=== PATIENT | male | born 1990 | race Hispanic/Latino ===

== ENCOUNTER 2016-10-27 20:50 | Emergency (ER) | payer MEDICAID ==
[2016-10-27] MEDS ORDERED: ATIVAN IV ONE (20:56)
[2016-10-27] MEDS ORDERED: NACL 0.9% 1000 ML 1,000 ML IV ONE (20:56)
--- NOTE | 2016-10-27 20:58 | Emergency Department Report ---
ED Seizure HPI - General Stated Complaint: AMS Time Seen by Provider: 10/27/16 20:56 Source: EMS Mode of arrival: Stretcher Limitations: Language Barrier, Other - History of Present Illness Initial Comments: 26-year-old male with a past medical history seizures presents to the hospital with multiple seizures today. Patient had 2 seizures earlier today and then had another seizure 30 minutes prior to arrival. Patient has been combative with EMS since arrival at the scene and received Narcan due to "blown pupils". 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 He takes Lamictal, Keppra, and Topamax for seizures. Awaiting mother's arrival to determine compliance of medication. Patient is agitated, moaning, and combative currently and unable to get any history of present illness the patient. Family present in the ED and interviewed at 11:50 PM. They states they were about to give his evening dose of seizure medication when he began to have seizures. Patient does have a neurologist but they cannot recall the name. Approximately 2-3 weeks ago patient was admitted to [place] for about 2 weeks in the ICU due to seizures. They deny that he was intubated. No recent change in current medication - Related Data Home Medications Medication Instructions Recorded Confirmed Last Taken Topiramate [Topamax] 100 mg PO BID 10/27/16 10/27/16 Unknown lamoTRIgine [LaMICtal] 300 mg PO BID 10/27/16 10/27/16 Unknown levETIRAcetam [Keppra TAB] 1,500 mg PO BID 10/27/16 10/27/16 Unknown Allergies Allergy/AdvReac Type Severity Reaction Status Date / Time No Known Allergies Allergy Verified 10/28/16 00:04 ED Review of Systems ROS: Stated complaint: AMS Other details as noted in HPI Comment: Unobtainable due to pts medical conditions ED Past Medical Hx - Medications Home Medications: Home Medications Medication Instructions Recorded Confirmed Last Taken Type Topiramate [Topamax] 100 mg PO BID 10/27/16 10/27/16 Unknown History lamoTRIgine [LaMICtal] 300 mg PO BID 10/27/16 10/27/16 Unknown History levETIRAcetam [Keppra TAB] 1,500 mg PO BID 10/27/16 10/27/16 Unknown History ED Physical Exam - Other Other exam information: General: Alert, combative Head exam: Atraumatic, normocephalic Eyes exam: Pupils are responsive to light and dilated ENT: Moist mucous membrane, dry blood at nares without signs of septal hematoma or crepitus Neck exam: Normal inspection, full range of motion, no meningismus nontender Respiratory exam: Clear to auscultation bilateral, no wheezes, rales, crackles Cardiovascular: Tachycardic regular rhythm Abdomen: Soft, nondistended, and nontender, with normal bowel sounds, no rebound, or guarding Extremity: Full range of motion normal inspection no deformity Back: Normal Inspection, full range of motion, no tenderness Neurologic: Alert, moaning incomprehensible sounds, moving all extremities 5/5 strength, sensation grossly intact Psychiatric: normal affect, normal mood Skin: Warm, dry, intact ED Course Vital Signs 10/27/16 10/27/16 10/27/16 20:48 20:57 21:00 Temperature 97.0 F L Pulse Rate 128 H 114 H 106 H Respiratory 13 16 Rate Blood Pressure 138/69 138/69 Blood Pressure [Left] O2 Sat by Pulse 98 96 98 Oximetry 10/27/16 10/27/16 10/27/16 21:05 21:15 21:30 Temperature Pulse Rate 105 H 107 H 70 Respiratory 20 15 18 Rate Blood Pressure 124/53 Blood Pressure 114/55 105/49 [Left] O2 Sat by Pulse 95 99 95 Oximetry 10/27/16 10/27/16 10/27/16 21:36 21:46 22:00 Temperature Pulse Rate 94 H 73 68 Respiratory 13 19 16 Rate Blood Pressure 124/53 124/53 105/43 Blood Pressure [Left] O2 Sat by Pulse 91 95 Oximetry 10/27/16 10/27/16 10/27/16 22:15 22:30 22:45 Temperature Pulse Rate 70 70 66 Respiratory 19 19 18 Rate Blood Pressure 106/44 105/35 105/46 Blood Pressure [Left] O2 Sat by Pulse 94 93 95 Oximetry 10/27/16 10/27/16 10/28/16 23:00 23:15 02:07 Temperature Pulse Rate 67 64 62 Respiratory 22 17 21 Rate Blood Pressure 105/45 107/46 Blood Pressure 121/59 [Left] O2 Sat by Pulse 94 94 100 Oximetry - Reevaluation(s) Reevaluation #1: 10/27/16 21:05 pt given atvian 1 mg upon arrival in 4 point restraints Reevaluation #2: 10/27/16 23:54 Patient is calm and sleeping with improved heart rate Reevaluation #3: 10/28/16 03:22 Patient received his evening dose of medications. No further seizure activity. Family feels comfortable taking patient ED Medical Decision Making - Lab Data Result diagrams: 10/27/16 21:16 10/27/16 21:16 Lab Results 10/27/16 10/27/16 10/27/16 Range/Units 21:16 21:16 21:16 WBC 9.4 (4.5-11.0) K/mm3 RBC 4.80 (3.65-5.03) M/mm3 Hgb 15.0 (11.8-15.2) gm/dl Hct 44.1 (35.5-45.6) % MCV 92 (84-94) fl MCH 31 (28-32) pg MCHC 34 (32-34) % RDW 12.6 L (13.2-15.2) % Plt Count 290 (140-440) K/mm3 Lymph % (Auto) 14.4 (13.4-35.0) % Noble % (Auto) 4.1 (0.0-7.3) % Eos % (Auto) 0.7 (0.0-4.3) % Baso % (Auto) 0.6 (0.0-1.8) % Lymph # 1.3 (1.2-5.4) K/mm3 Noble # 0.4 (0.0-0.8) K/mm3 Eos # 0.1 (0.0-0.4) K/mm3 Baso # 0.1 (0.0-0.1) K/mm3 Seg Neutrophils % 80.2 H (40.0-70.0) % Seg Neutrophils # 7.5 (1.8-7.7) K/mm3 Sodium 142 (137-145) mmol/L Potassium 3.5 L (3.6-5.0) mmol/L Chloride 105.5 (98-107) mmol/L Carbon Dioxide 20 L (22-30) mmol/L Anion Gap 20 mmol/L BUN 18 (9-20) mg/dL Creatinine 1.1 (0.8-1.5) mg/dL Estimated GFR > 60 ml/min BUN/Creatinine Ratio 16.36 % Glucose 130 H (75-100) mg/dL Lactic Acid 2.80 H* (0.7-2.0) mmol/L Calcium 9.1 (8.4-10.2) mg/dL Magnesium 1.70 (1.7-2.3) mg/dL - Radiology Data Radiology results: report reviewed CT head: No acute findings CT facial bones: No acute findings - Medical Decision Making Plan discharge patient home status post seizure. No signs of acute fracture. Outpatient neurology follow-up encouraged - Differential Diagnosis breakthrough sz, med noncompliance, electrolyte abnl Critical Care Time: No Critical care attestation.: If time is entered above; I have spent that time in minutes in the direct care of this critically ill patient, excluding procedure time. ED Disposition Clinical Impression: Breakthrough seizure Disposition: DISCHARGED TO HOME OR SELFCARE Is pt being admited?: No Does the pt Need Aspirin: No Condition: Stable Instructions: Recurrent Seizures Adult (ED) Additional Instructions: Taking your current medication. Follow-up with the neurologist as soon as possible. Return if symptoms worsen. Referrals: your, neurologist [Other] - [facility] Time of Disposition: 03:23
[2016-10-27 21:31] LABS: Basophils % (Auto) 0.6 % (0.0-1.8); Eosinophils % (Auto) 0.7 % (0.0-4.3); Hematocrit 44.1 % (35.5-45.6); Mean Corpuscular HGB Conc 34 % (32-34); Mean Corpuscular Hemoglobin 31 pg (28-32); Mean Corpuscular Volume 92 fl (84-94); Platelet Count 290 K/mm3 (140-440); Red Cell Distribution Width 12.6 % (13.2-15.2); White Blood Count 9.4 K/mm3 (4.5-11.0)
[2016-10-27 21:47] LABS: Anion Gap 20 mmol/L; BUN/Creatinine Ratio 16.36; Blood Urea Nitrogen 18 mg/dL (9-20); Calcium 9.1 mg/dL (8.4-10.2); Carbon Dioxide 20 mmol/L (22-30); Chloride 105.5 mmol/L (98-107); Glucose 130 mg/dL (75-100); Potassium 3.5 mmol/L (3.6-5.0); Sodium 142 mmol/L (137-145)
--- NOTE | 2016-10-27 21:56 | Cat Scan Report ---
FINAL REPORT EXAM: CT HEAD/BRAIN WO CON HISTORY: head injury, recurrent sz TECHNIQUE: CT imaging acquired through the head without intravenous contrast. Transaxial reformations are provided. PRIORS: None. FINDINGS: The ventricles, cisterns and sulci are normal. No intraparenchymal or extra-axial mass, hemorrhage, or mass effect. Joshi and white-matter differentiation is normal. Normal spherical shape of the globes. Paranasal sinuses and mastoid air cells are clear. No skull or facial fracture visualized. IMPRESSION: No acute intracranial abnormality.
--- NOTE | 2016-10-27 21:59 | Cat Scan Report ---
FINAL REPORT EXAM: CT FACIAL BONES WO CON HISTORY: head injury, recurrent sz TECHNIQUE: CT images are acquired through the face without contrast. Transaxial , coronal and sagittal reformations are provided. PRIORS: None. FINDINGS: No facial fractures. The bony orbits, nasal bones, pterygoid plates, mandible and maxilla are intact. Normal spherical shape of the globes. No significant abnormality within the imaged paranasal sinuses or mastoid air cells. IMPRESSION: No facial fracture.
[2016-10-27] MEDS ORDERED: LaMICtal PO ONE (23:53)
[2016-10-28] MEDS ORDERED: TOPAMAX PO SCH (01:30)
[2016-10-28 03:44] VITALS: BP 124/60
[2016-10-28] MEDS ORDERED: KEPPRA 1,500 MG in D5W 100 ML IV ONE (23:53)
== END 2016-10-28 03:42 | disposition home or self-care (01) ==
LOC: ED 20:50
DX: R56.9 Unspecified convulsions (principal)
CPT/HCPCS: 36415; 70450; 70486; 80048; 82140; 83735; 85025; 96361; 96374; 96375; 99284; J1953; J2060; J7030

== ENCOUNTER 2018-01-16 02:28 | Inpatient (IN) | payer MEDICAID ==
[2018-01-16] MEDS ORDERED: ATIVAN ONE (02:39)
[2018-01-16] MEDS ORDERED: ATIVAN IV ONE (02:40)
[2018-01-16] MEDS ORDERED: KEPPRA 1,000 MG/NS 0.75% 100ML 1,000 MG/100 ML BAG IV ONE ×2 (02:56→02:57)
[2018-01-16 03:47] LABS: Hematocrit 44.9 % (35.5-45.6); Hemoglobin 15.2 gm/dl (11.8-15.2); Mean Corpuscular HGB Conc 34 % (32-34); Mean Corpuscular Hemoglobin 30 pg (28-32); Mean Corpuscular Volume 89 fl (84-94); Platelet Count 425 K/mm3 (140-440); Red Blood Count 5.03 M/mm3 (3.65-5.03); Red Cell Distribution Width 12.7 % (13.2-15.2)
[2018-01-16 04:10] LABS: Alanine Aminotransferase 57 units/L (7-56); BUN/Creatinine Ratio 11; Blood Urea Nitrogen 11 mg/dL (9-20); Calcium 8.6 mg/dL (8.4-10.2); Hemolysis Index 19; Lipase 18 units/L (13-60)
[2018-01-16 04:33] LABS: Bacteria,Urine 1+ /HPF (Negative); Bilirubin,Urine NEG (Negative); Blood,Urine NEG (Negative); Color,Urine Yellow (Yellow); Hyaline Casts,Urine 1 /LPF; Mucus,Urine 1+ /HPF
[2018-01-16] MEDS ORDERED: NACL 0.9% 1000 ML 1,000 ML IV ONE ×2 (04:56→05:04)
--- NOTE | 2018-01-16 05:01 | Emergency Department Report ---
ED Seizure HPI - General Chief Complaint: Seizure Stated Complaint: SEIZURE Time Seen by Provider: 01/16/18 02:50 Source: family, EMS Mode of arrival: Stretcher Limitations: Physical Limitation - History of Present Illness Initial Comments: Hx obtained from Mom and EMS. Pt woke up this morning feeling fine. Over the past 2 hours, pt had 2 generalized sz's. He didn't return to baseline in between the seizures. Currently is on keppra for sz. EMS arrived to find him post-ictal. Pt was admitted a little over a week ago for status epilepticus. Has been compliant with home medication. Recently finished a course of abx for uti. Mom feels like these seizures are different from his usual seizures. Last had a seizure during his prior hospital admission rougly 1 wk ago. - Related Data Home Medications Medication Instructions Recorded Confirmed Last Taken Topiramate [Topamax] 150 mg PO BID 10/27/16 01/16/18 Unknown lamoTRIgine [LaMICtal] 300 mg PO BID 10/27/16 01/16/18 Unknown levETIRAcetam [Keppra TAB] 1,500 mg PO BID 10/27/16 01/16/18 01/01/18 Cholecalciferol Vit D3 [Vitamin D3] 1,000 unit PO BID 01/01/18 01/16/18 Unknown Lacosamide [Vimpat] 200 mg PO BID 01/01/18 01/16/18 Unknown Previous Rx's Medication Instructions Recorded Last Taken Type Docusate Sodium [Colace CAP] 100 mg PO BID #30 capsule 01/06/18 Unknown Rx LORazepam [Ativan] 1 mg PO BID PRN #6 tab 01/06/18 Unknown Rx Allergies Allergy/AdvReac Type Severity Reaction Status Date / Time Penicillins Allergy Angioedema Verified 01/01/18 13:03 shellfish derived Allergy Swelling Verified 01/01/18 13:03 ED Review of Systems ROS: Stated complaint: SEIZURE Other details as noted in HPI Comment: Unobtainable due to pts medical conditions ED Past Medical Hx - Past Medical History Previous Medical History?: Yes Hx Hypertension: No Hx CVA: Yes (2013) Hx Congestive Heart Failure: No Hx Diabetes: No Hx Deep Vein Thrombosis: No Hx Pulmonary Embolism: No Hx Seizures: Yes Hx Asthma: No Hx COPD: No Hx Tuberculosis: No Hx Dementia: Yes Hx HIV: No Additional medical history: blind - Surgical History Past Surgical History?: Yes Hx Pacemaker: No Hx Internal Defibrillator: No Additional Surgical History: Vagal nerve stimulator - Social History Smoking Status: Never Smoker Substance Use Type: None - Medications Home Medications: Home Medications Medication Instructions Recorded Confirmed Last Taken Type Topiramate [Topamax] 150 mg PO BID 10/27/16 01/16/18 Unknown History lamoTRIgine [LaMICtal] 300 mg PO BID 10/27/16 01/16/18 Unknown History levETIRAcetam [Keppra TAB] 1,500 mg PO BID 10/27/16 01/16/18 01/01/18 History Cholecalciferol Vit D3 [Vitamin D3] 1,000 unit PO BID 01/01/18 01/16/18 Unknown History Lacosamide [Vimpat] 200 mg PO BID 01/01/18 01/16/18 Unknown History Docusate Sodium [Colace CAP] 100 mg PO BID #30 capsule 01/06/18 01/16/18 Unknown Rx LORazepam [Ativan] 1 mg PO BID PRN #6 tab 01/06/18 01/16/18 Unknown Rx ED Physical Exam - General Limitations: Altered Mental Status, Physical Limitation General appearance: lethargic, in distress (in mild resp distress) - Head Head exam: Present: atraumatic, normocephalic - Eye Eye exam: Present: normal appearance - ENT ENT exam: Present: mucous membranes moist - Neck Neck exam: Present: normal inspection - Respiratory Respiratory exam: Present: normal lung sounds bilaterally. Absent: respiratory distress - Cardiovascular Cardiovascular Exam: Present: regular rate, normal rhythm, tachycardia. Absent : systolic murmur, diastolic murmur, rubs, gallop - GI/Abdominal GI/Abdominal exam: Present: soft, normal bowel sounds. Absent: tenderness - Rectal Rectal exam: Present: deferred - Extremities Exam Extremities exam: Present: normal inspection - Back Exam Back exam: Present: normal inspection - Neurological Exam Neurological exam: Present: other (post-ictal) - Psychiatric Psychiatric exam: Present: normal affect, normal mood - Skin Skin exam: Present: warm, dry, intact, normal color. Absent: rash ED Course Vital Signs 01/16/18 01/16/18 01/16/18 02:52 04:00 05:00 Temperature 98 F Pulse Rate 120 H 103 H 104 H Respiratory 28 H 35 H 30 H Rate Blood Pressure 136/71 114/62 117/78 Blood Pressure 136/71 [Left] O2 Sat by Pulse 95 93 96 Oximetry ED Medical Decision Making - Lab Data Result diagrams: 01/16/18 03:21 01/16/18 03:21 - EKG Data -: EKG Interpreted by Me EKG shows normal: sinus rhythm Rate: tachycardia - EKG Data Interpretation: unchanged when compared t - Radiology Data Radiology results: report reviewed - Medical Decision Making 28 yo male with pmhx status epilepticus that presents to the ER with status epilepticus. He was here 1.5 wks ago with the same thing. Pt is tachycardic on arrival. This improved with IVF. WBC 27k. Bicarb is 17. Afebrile. Likely this is related to patient's 3 prior seizures today. Given 1 mg ativan in the ER for GTC sz with his head pointing to the right. Started on IVF. CT head is unremarkable. Given 2g IV keppra. UA neg. Pt will be admitted for further management. Radiologist just read the chest xr as possible pna. Will give empiric HCAP coverage. - Differential Diagnosis status, GTC sz, electrolyte abnormality, sepsis, uti, pna Critical care attestation.: If time is entered above; I have spent that time in minutes in the direct care of this critically ill patient, excluding procedure time. ED Disposition Clinical Impression: Status epilepticus, Pneumonia Disposition: OP ADMIT IP TO THIS HOSP Is pt being admited?: Yes Does the pt Need Aspirin: No Condition: Stable Instructions: Bacterial Pneumonia (ED) Referrals: PRIMARY CARE, [Primary Care Provider] - 3-5 Days
--- NOTE | 2018-01-16 05:04 | Cat Scan Report ---
FINAL REPORT EXAM: CT HEAD/BRAIN WO CON HISTORY: status epilepticus TECHNIQUE: Routine axial imaging was obtained of the brain without IV contrast. Comparison is made to the study of 01/01/2018. FINDINGS: There is mild supratentorial volume loss with moderate to severe volume loss in the posterior fossa. There is no evidence of acute stroke or hemorrhage. The ventricular system is symmetric in size. The visualized sinuses are clear. The mastoid air cells are well pneumatized. The calvarium appears intact. IMPRESSION: No evidence of acute stroke or hemorrhage. Moderate to severe atrophy in the posterior fossa, possibly related to chronic anticonvulsant medication.
--- NOTE | 2018-01-16 05:27 | XRay Report ---
FINAL REPORT EXAM: XR CHEST 1V AP HISTORY: hypoxia TECHNIQUE: A portable supine view of the chest was obtained. FINDINGS: Heart size is normal. The lungs appear mildly congested. There is patchy airspace disease in the right lung base. There is a pacemaker device overlying the left chest wall with the lead directed into the left side of the neck. The skeletal structures otherwise appear well maintained. IMPRESSION: Mild vascular congestion with patchy airspace disease in the right lung base.
[2018-01-16 05:40] LABS: Band Neutrophils # (Manual) 6.3 K/mm3; Total Cells Counted 100
[2018-01-16 05:41] LABS: Anisocytosis 1+; Basophils % (Manual) 0 % (0.0-1.8); Eosinophils % (Manual) 0 % (0.0-4.3)
[2018-01-16] MEDS ORDERED: ZITHROMAX 500 MG in NACL 0.9% 250ML 250 ML IV ONE (05:48)
[2018-01-16] MEDS ORDERED: VANCOMYCIN VIAL IV ONE (05:48)
[2018-01-16] MEDS ORDERED: VANCOMYCIN 2,000 MG in NACL 0.9% 500 ML 500 ML IV ONE (06:00)
[2018-01-16] MEDS ORDERED: ZOSYN/NS 4.5GM/100ML 4.5 GM/100 ML VIAL IV SCH (06:00)
[2018-01-16] MEDS ORDERED: VANCOMYCIN PHARMACY TO DOSE IV SCH (06:00)
[2018-01-16] MEDS ORDERED: ROCEPHIN/NS 1 GM/50 ML 1 GM/50 ML BAG IV ONE (06:11)
[2018-01-16] MEDS ORDERED: SODIUM CHLORIDE FLUSH SYRINGE 10 ML IV PRN (06:32)
[2018-01-16] MEDS ORDERED: ZOFRAN IV PRN ×2 (06:32→11:52)
--- NOTE | 2018-01-16 06:40 | History and Physical Report ---
History of Present Illness Date of examination: 01/16/18 History of present illness: 27 year old male with history of retinitis pigmentosa, legally blind, seizure disorder was brought to the emergency room by the mom because he had 4 seizures at home. In the emergency room he had another seizure, he was loaded with Keppra, Ativan and patient is postictal, review of systems unobtainable Patient was just discharged from the hospital recently, he's been on Bactrim for UTI, on state is compliant with medication PAST MEDICAL HISTORY:retinitis pigmentosa, legally blind, seizure disorder PAST SURGICAL HISTORY: Vagal nerve stimulator SOCIAL HISTORY: No alcohol, no drugs, tobacco FAMILY HISTORY: Hypertension Medications and Allergies Allergies Allergy/AdvReac Type Severity Reaction Status Date / Time Penicillins Allergy Angioedema Verified 01/01/18 13:03 shellfish derived Allergy Swelling Verified 01/01/18 13:03 Home Medications Medication Instructions Recorded Confirmed Last Taken Type Topiramate [Topamax] 150 mg PO BID 10/27/16 01/16/18 Unknown History lamoTRIgine [LaMICtal] 300 mg PO BID 10/27/16 01/16/18 Unknown History levETIRAcetam [Keppra TAB] 1,500 mg PO BID 10/27/16 01/16/18 01/01/18 History Cholecalciferol Vit D3 [Vitamin D3] 1,000 unit PO BID 01/01/18 01/16/18 Unknown History Lacosamide [Vimpat] 200 mg PO BID 01/01/18 01/16/18 Unknown History Docusate Sodium [Colace CAP] 100 mg PO BID #30 capsule 01/06/18 01/16/18 Unknown Rx LORazepam [Ativan] 1 mg PO BID PRN #6 tab 01/06/18 01/16/18 Unknown Rx Active Meds: Active Medications Acetaminophen (Tylenol) 650 mg PO Q4H PRN PRN Reason: Pain MILD(1-3)/Fever >100.5/ALCARAZ Enoxaparin Sodium (Lovenox) 30 mg SUB-Q QDAY SILVANA Vancomycin HCl 2,000 mg/ (Sodium Chloride) 540 mls @ 250 mls/hr IV ONCE ONE Stop: 01/16/18 08:09 Ceftriaxone Sodium (Rocephin/Ns 1 Gm/50 Ml) 1 gm in 50 mls @ 100 mls/hr IV ONCE ONE; Protocol Stop: 01/16/18 06:40 Last Admin: 01/16/18 06:20 Dose: 100 mls/hr Sodium Chloride (Nacl 0.9% 1000 Ml) 1,000 mls @ 125 mls/hr IV DIRECT SILVANA Levofloxacin/Dextrose (Levaquin 750mg/150ml) 750 mg in 150 mls @ 100 mls/hr IV Q24HR SILVANA; Protocol Ondansetron HCl (Zofran) 4 mg IV Q4H PRN PRN Reason: Nausea And Vomiting Sodium Chloride (Sodium Chloride Flush Syringe 10 Ml) 10 ml IV BID SILVANA Sodium Chloride (Sodium Chloride Flush Syringe 10 Ml) 10 ml IV PRN PRN PRN Reason: LINE FLUSH Vancomycin HCl (Vancomycin Pharmacy To Dose) 1 each IV PKCONSULT SILVANA Exam - Physical Exam Narrative exam: Gen. appearance: Patient lying in bed, no apparent distress HEENT: Normocephalic, atraumatic, pupils equally round and reactive to light, extraocular movement intact, and no sclericterus,. No JVD or thyromegaly or nodule,neck supple, no carotid bruit ,mucous membranes moist, no exudate or erythema Heart: S1, S2, regular rate and rhythm Lungs: Clear bilaterally, breathing comfortable Abdomen: Positive bowel sounds, non-tender, nondistended, no organomegaly Extremity:no edema cyanosis, clubbing Skin: no rash, dry, warm Neuro: Oriented 3, cranial nerves II-12 intact, speech is fluent, motor and sensory intact - Constitutional Vitals: Temp Pulse Resp BP Pulse Ox 98 F 104 H 24 100/63 99 01/16/18 02:52 01/16/18 05:00 01/16/18 06:00 01/16/18 06:00 01/16/18 06:00 Results - Labs CBC & Chem 7: 01/16/18 03:21 01/16/18 03:21 Labs: Abnormal lab results 01/16/18 01/16/18 01/16/18 Range/Units 03:21 03:21 03:50 WBC 27.2 H (4.5-11.0) K/mm3 RDW 12.7 L (13.2-15.2) % Lymphocytes % (Manual) 3.0 L (13.4-35.0) % Seg Neutrophils # Man 19.0 H (1.8-7.7) K/mm3 Lymphocytes # (Manual) 0.8 L (1.2-5.4) K/mm3 Monocytes # (Manual) 1.1 H (0.0-0.8) K/mm3 Chloride 107.5 H (98-107) mmol/L Carbon Dioxide 17 L (22-30) mmol/L Glucose 165 H (75-100) mg/dL AST 42 H (5-40) units/L ALT 57 H (7-56) units/L Ur Specific Knifley 1.032 H (1.003-1.030) - Imaging and Cardiology Chest x-ray: report reviewed CT Scan - head: report reviewed Assessment and Plan Assessment Status epilepticus Pneumonia Legally blind Retinitis pigmentosa Plan Admit to medicine Continue Keppra, consult neurology, IV Ativan Start IV fluids, antibiotics DVT prophylaxis
[2018-01-16] MEDS ORDERED: LEVAQUIN 750MG/150ML 750 MG/150 ML BAG IV NR (07:00)
[2018-01-16] MEDS ORDERED: LOVENOX SUB-Q SCH ×2 (10:00)
[2018-01-16] MEDS ORDERED: LEVAQUIN 750MG/150ML 750 MG/150 ML BAG IV SCH (10:00)
[2018-01-16] MEDS: SODIUM CHLORIDE FLUSH SYRINGE 10 ML IV SCH ×2 (11:16→21:36)
--- NOTE | 2018-01-16 12:44 | Consultation ---
History of Present Illness Consult date: 01/16/18 Requesting physician: ODN HERNANDEZ Reason for Consult: Seizures History of present illness: 28 year old male with diagnosis of retinitis pigmentosa, blind since age 12, and seizure disorder since age 16. He has been followed at [place] and is currently on 4 anticonvulsants. He also has a vagal stimulator. The patient at baseline stays in a hospital bed and can get up with assistance. For the past 5 weeks he has been having spells of nausea and vomiting, making it difficult to keep his medications down. He has had several admissions for this , gets stabilized and sent home only for another spell to occur. He was just admitted on 01/02/18 for this scenario. He was treated for UTI on that admission and did well at home until last night. He was doing well all day until the evening when he had several seizures in a row, not pre-empted by vomiting. He had been taking meds as scheduled with no lapses. During the seizure he did vomit and risk for aspiration was identified. He had several seizures at home and also upon arrival to the hospital. He has been given ativan and is resting comfortably. Past History Past Medical History: seizures, other (blind) Past Surgical History: Other (placement of vagal stimulator.) Social history: no significant social history, lives with family. denies: smoking, alcohol abuse, prescription drug abuse, IV drug use Family history: hypertension Medications and Allergies Allergies Allergy/AdvReac Type Severity Reaction Status Date / Time Penicillins Allergy Angioedema Verified 01/01/18 13:03 shellfish derived Allergy Swelling Verified 01/01/18 13:03 Home Medications Medication Instructions Recorded Confirmed Last Taken Type Topiramate [Topamax] 150 mg PO BID 10/27/16 01/16/18 Unknown History lamoTRIgine [LaMICtal] 300 mg PO BID 10/27/16 01/16/18 Unknown History levETIRAcetam [Keppra TAB] 1,500 mg PO BID 10/27/16 01/16/18 01/01/18 History Cholecalciferol Vit D3 [Vitamin D3] 1,000 unit PO BID 01/01/18 01/16/18 Unknown History Lacosamide [Vimpat] 200 mg PO BID 01/01/18 01/16/18 Unknown History Docusate Sodium [Colace CAP] 100 mg PO BID #30 capsule 01/06/18 01/16/18 Unknown Rx LORazepam [Ativan] 1 mg PO BID PRN #6 tab 01/06/18 01/16/18 Unknown Rx Active Meds: Active Medications Acetaminophen (Tylenol) 650 mg PO Q4H PRN PRN Reason: Pain MILD(1-3)/Fever >100.5/ALCARAZ Heparin Sodium (Porcine) (Heparin) 5,000 unit SUB-Q Q12HR SILVANA Sodium Chloride (Nacl 0.9% 1000 Ml) 1,000 mls @ 125 mls/hr IV DIRECT SILVANA Levetiracetam 750 mg/ Sodium (Chloride) 107.5 mls @ 400 mls/hr IV Q12HR SILVANA Levofloxacin/Dextrose (Levaquin 750mg/150ml) 750 mg in 150 mls @ 150 mls/hr IV Q24HR SILVANA Lacosamide 200 mg/ Sodium (Chloride) 120 mls @ 100 mls/hr IV Q12H SILVANA Lorazepam (Ativan) 1 mg IV Q4H PRN PRN Reason: Seizures Ondansetron HCl (Zofran) 4 mg IV Q6H PRN PRN Reason: N/V unrelieved by Reglan Sodium Chloride (Sodium Chloride Flush Syringe 10 Ml) 10 ml IV BID [facility] Last Admin: 01/16/18 11:16 Dose: 10 ml Sodium Chloride (Sodium Chloride Flush Syringe 10 Ml) 10 ml IV PRN PRN PRN Reason: LINE FLUSH Review of Systems ROS unobtainable: due to mental status Physical Examination - Vital Signs Vital Signs: Vital Signs Temp Pulse Resp BP Pulse Ox 98 F 120 H 28 H 136/71 95 01/16/18 02:52 01/16/18 02:52 01/16/18 02:52 01/16/18 02:52 01/16/18 02:52 - Physical Exam Narrative exam: Narrative exam: HEENT - nystagmus, no inflamation or lesions Neck - supple Chest - clear. Heart - reg rate. nl S-1, S-2. Abdomen - soft, nontender. Neurologic exam- Obtunded - does not respond to voice, moans with chest rub. CN's - pupils dialatd 4 mm. No vision. bilateral lateral gaze nystagmus face symmetric Motor - Moves all extremities well, left greater than right. Sensory - withdraws to pain.t t Results - Laboratory Findings CBC and BMP: 01/16/18 03:21 01/16/18 03:21 Abnormal Lab Findings: Abnormal Labs 01/16/18 01/16/18 01/16/18 03:21 03:21 03:50 WBC 27.2 H RDW 12.7 L Lymphocytes % (Manual) 3.0 L Seg Neutrophils # Man 19.0 H Lymphocytes # (Manual) 0.8 L Monocytes # (Manual) 1.1 H Chloride 107.5 H Carbon Dioxide 17 L Glucose 165 H AST 42 H ALT 57 H Ur Specific Brice 1.032 H Assessment and Plan 27 year old male with history of retinitis pigmentosa and seizure disorder, difficult to control. Presented in status last night , without previous GI symptoms as has been his pattern before this. The patient went into seizures despite taking his medicines as scheduled. This a.m. he is lethargic, postictal. Keppra and Ativan have been given. There is a question as to the integrity of his vagal stimulator. This should be working at the start of a seizure. This needs to be evaluated by an epilepsy team. Plan - Restart oral meds when alert and swallowing. Bedside swallowing evaluation prior to taking po. Added Vimpat 200 mg I.V. q 12 hrs. Consult to social service to see if we can get him into the [facility] system. Family has had problems with their existing clinic.
[2018-01-16] MEDS: VIMPAT 200 MG in NACL 0.9% 100 ML IV SCH (14:15)
--- NOTE | 2018-01-16 14:42 | Event Note ---
Date: 01/16/18 Patient was seen and evaluated this morning, patient is postictal. Patient admitted this morning for recurrent seizures. Evaluated by neurology. Patient is on IV keppra and ativan. continue management per H&P.
[2018-01-16] MEDS: KEPPRA 750 MG in NACL 0.9% 100 ML IV SCH (21:35)
[2018-01-16] MEDS: HEPARIN SUB-Q SCH (21:36)
[2018-01-16] MEDS: TYLENOL PR PRN (22:40)
[2018-01-17] MEDS: VIMPAT 200 MG in NACL 0.9% 100 ML IV SCH ×2 (01:07→13:00)
[2018-01-17] MEDS: NACL 0.9% 1000 ML 1,000 ML IV SCH ×2 (04:27→14:05)
[2018-01-17] MEDS: ATIVAN IV PRN ×3 (06:38→22:21)
[2018-01-17] MEDS: HEPARIN SUB-Q SCH ×2 (09:57→22:20)
[2018-01-17] MEDS: SODIUM CHLORIDE FLUSH SYRINGE 10 ML IV SCH (09:58)
[2018-01-17] MEDS ORDERED: LEVAQUIN 750MG/150ML 750 MG/150 ML BAG IV SCH ×2 (10:00)
[2018-01-17] MEDS: KEPPRA 750 MG in NACL 0.9% 100 ML IV SCH ×2 (10:40→22:20)
--- NOTE | 2018-01-17 12:20 | Progress Note ---
Assessment and Plan Assessment and plan: 27 year old male with history of retinitis pigmentosa, legally blind, seizure disorder was brought to the emergency room by his mother because he had 4 seizures at home. In the emergency room he had another seizure, he was loaded with Keppra, Ativan and admitted to the floor. Vision is leukocytosis and chest x-ray showed right lower lobe infiltrate. Admitted for the management of aspiration pneumonia. Patient was postictal on admission and is not able to take PO. Sepsis secondary to Aspiration pneumonia, HCAP - Patient is on IV Levaquin, patient is still shooting fever - I will switch IV Aztreonam and Vancomycin Recurrent seizure - Patient is on IV Keppra, lacosamide and Ativan - Once he is able to swallow will restart his by mouth medications - Continue IV fluids DVT prophylaxis - On heparin Disposition Continue inpatient care History Interval history: Patient was seen and evaluated this morning, patient was on the bed comfortably. I have discussed the management plan with his mother who was in the room at the time of examination. Hospitalist Physical - Physical exam Narrative exam: Not in cardiopulmonary distress. Patient is legally blind. The patient appeared well nourished and normally developed. Vital signs as documented. Head exam is unremarkable. No scleral icterus . Neck is without jugular venous distension, thyromegaly, or carotid bruits. Lungs are clear to auscultation. Cardiac exam reveals regular rate and Rhythm. First and second heart sounds normal. No murmurs, rubs or gallops. Abdominal exam reveals normal bowel sounds, no masses, no organomegaly and no aortic enlargement. Extremities are nonedematous and both femoral and pedal pulses are normal. US MARKETING DIRECTOR:Alert. - Constitutional Vitals: Temp Pulse Resp BP Pulse Ox 98.9 F 102 H 18 135/74 95 01/17/18 06:32 01/17/18 06:32 01/17/18 06:32 01/17/18 06:32 01/17/18 06:32 Results - Labs CBC & Chem 7: 01/16/18 03:21 01/16/18 03:21 Labs: Laboratory Last Values WBC 27.2 K/mm3 (4.5-11.0) H 01/16/18 03:21 RBC 5.03 M/mm3 (3.65-5.03) 08/03/18 03:21 Hgb 15.2 gm/dl (11.8-15.2) 01/16/18 03:21 Hct 44.9 % (35.5-45.6) 01/16/18 03:21 MCV 89 fl (84-94) 01/16/18 03:21 MCH 30 pg (28-32) 01/16/18 03:21 MCHC 34 % (32-34) 01/16/18 03:21 RDW 12.7 % (13.2-15.2) L 01/16/18 03:21 Plt Count 425 K/mm3 (140-440) 01/16/18 03:21 Add Manual Diff Complete 01/16/18 03:21 Total Counted 100 01/16/18 03:21 Seg Neutrophils % Reading Recovery Teacher 01/16/18 03:21 Seg Neuts % (Manual) 70.0 % (40.0-70.0) 01/16/18 03:21 Band Neutrophils % 23.0 % 01/16/18 03:21 Lymphocytes % (Manual) 3.0 % (13.4-35.0) L 01/16/18 03:21 Reactive Lymphs % (Man) 0 % 01/16/18 03:21 Monocytes % (Manual) 4.0 % (0.0-7.3) 01/16/18 03:21 Eosinophils % (Manual) 0 % (0.0-4.3) 01/16/18 03:21 Basophils % (Manual) 0 % (0.0-1.8) 01/16/18 03:21 Metamyelocytes % 0 % 01/16/18 03:21 Myelocytes % 0 % 01/16/18 03:21 Promyelocytes % 0 % 01/16/18 03:21 Blast Cells % 0 % 01/16/18 03:21 Nucleated RBC % Not Reportable 01/16/18 03:21 Seg Neutrophils # Man 19.0 K/mm3 (1.8-7.7) H 01/16/18 03:21 Band Neutrophils # 6.3 K/mm3 01/16/18 03:21 Lymphocytes # (Manual) 0.8 K/mm3 (1.2-5.4) L 01/16/18 03:21 Abs React Lymphs (Man) 0.0 K/mm3 01/16/18 03:21 Monocytes # (Manual) 1.1 K/mm3 (0.0-0.8) H 01/16/18 03:21 Eosinophils # (Manual) 0.0 K/mm3 (0.0-0.4) 01/16/18 03:21 Basophils # (Manual) 0.0 K/mm3 (0.0-0.1) 01/16/18 03:21 Metamyelocytes # 0.0 K/mm3 01/16/18 03:21 Myelocytes # 0.0 K/mm3 01/16/18 03:21 Promyelocytes # 0.0 K/mm3 01/16/18 03:21 Blast Cells # 0.0 K/mm3 01/16/18 03:21 WBC Morphology Not Reportable 01/16/18 03:21 Hypersegmented Neuts Not Reportable 01/16/18 03:21 Hyposegmented Neuts Not Reportable 01/16/18 03:21 Hypogranular Neuts Not Reportable 01/16/18 03:21 Smudge Cells Not Reportable 01/16/18 03:21 Toxic Granulation Not Reportable 01/16/18 03:21 Toxic Vacuolation Not Reportable 01/16/18 03:21 Dohle Bodies Not Reportable 01/16/18 03:21 Pelger-Huet Anomaly Not Reportable 01/16/18 03:21 Nereida Rods Not Reportable 01/16/18 03:21 Platelet Estimate Appears normal 01/16/18 03:21 Clumped Platelets Not Reportable 01/16/18 03:21 Plt Clumps, EDTA Not Reportable 01/16/18 03:21 Large Platelets Not Reportable 01/16/18 03:21 Giant Platelets Not Reportable 01/16/18 03:21 Platelet Satelliting Not Reportable 01/16/18 03:21 Plt Morphology Comment Not Reportable 01/16/18 03:21 RBC Morphology Not Reportable 01/16/18 03:21 Dimorphic RBCs Not Reportable 01/16/18 03:21 Polychromasia Not Reportable 01/16/18 03:21 Hypochromasia Not Reportable 01/16/18 03:21 Poikilocytosis Not Reportable 01/16/18 03:21 Anisocytosis 1+ 01/16/18 03:21 Microcytosis Not Reportable 01/16/18 03:21 Macrocytosis Not Reportable 01/16/18 03:21 Spherocytes Not Reportable 01/16/18 03:21 Pappenheimer Bodies Not Reportable 01/16/18 03:21 Sickle Cells Not Reportable 01/16/18 03:21 Target Cells Not Reportable 01/16/18 03:21 Tear Drop Cells Not Reportable 01/16/18 03:21 Ovalocytes Not Reportable 01/16/18 03:21 Helmet Cells Not Reportable 01/16/18 03:21 [place] Bodies Not Reportable 01/16/18 03:21 [place] Rings Not Reportable 01/16/18 03:21 Brie Cells Not Reportable 01/16/18 03:21 Bite Cells Not Reportable 01/16/18 03:21 Crenated Cell Not Reportable 01/16/18 03:21 Elliptocytes Not Reportable 01/16/18 03:21 Acanthocytes (Spur) Not Reportable 01/16/18 03:21 Rouleaux Not Reportable 01/16/18 03:21 Hemoglobin C Crystals Not Reportable 01/16/18 03:21 Schistocytes Not Reportable 01/16/18 03:21 Malaria parasites Not Reportable 01/16/18 03:21 Miguel Bodies Not Reportable 01/16/18 03:21 Hem Pathologist Commnt No 01/16/18 03:21 Sodium 140 mmol/L (137-145) 01/16/18 03:21 Potassium 4.1 mmol/L (3.6-5.0) 01/16/18 03:21 Chloride 107.5 mmol/L (98-107) H 01/16/18 03:21 Carbon Dioxide 17 mmol/L (22-30) L 01/16/18 03:21 Anion Gap 20 mmol/L 01/16/18 03:21 BUN 11 mg/dL (9-20) 01/16/18 03:21 Creatinine 1.0 mg/dL (0.8-1.5) 01/16/18 03:21 Estimated GFR > 60 ml/min 01/16/18 03:21 BUN/Creatinine Ratio 11 % 01/16/18 03:21 Glucose 165 mg/dL (75-100) H 01/16/18 03:21 Calcium 8.6 mg/dL (8.4-10.2) 01/16/18 03:21 Total Bilirubin 0.20 mg/dL (0.1-1.2) 01/16/18 03:21 AST 42 units/L (5-40) H 01/16/18 03:21 ALT 57 units/L (7-56) H 01/16/18 03:21 Alkaline Phosphatase 87 units/L (35-129) 01/16/18 03:21 Total Protein 6.7 g/dL (6.3-8.2) 01/16/18 03:21 Albumin 4.0 g/dL (3.9-5) 01/16/18 03:21 Albumin/Globulin Ratio 1.5 % 01/16/18 03:21 Lipase 18 units/L (13-60) 01/16/18 03:21 Urine Color Yellow (Yellow) 01/16/18 03:50 Urine Turbidity Clear (Clear) 01/16/18 03:50 Urine pH 5.0 (5.0-7.0) 01/16/18 03:50 Ur Specific [place] 1.032 (1.003-1.030) H 01/16/18 03:50 Urine Protein 30 mg/dl mg/dL (Negative) 01/16/18 03:50 Urine Glucose (UA) Neg mg/dL (Negative) 01/16/18 03:50 Urine Ketones Neg mg/dL (Negative) 01/16/18 03:50 Urine Blood Neg (Negative) 01/16/18 03:50 Urine Nitrite Neg (Negative) 01/16/18 03:50 Urine Bilirubin Neg (Negative) 01/16/18 03:50 Urine Urobilinogen 4.0 mg/dL (<2.0) 01/16/18 03:50 Ur Leukocyte Esterase Neg (Negative) 01/16/18 03:50 Urine WBC (Auto) 2.0 /HPF (0.0-6.0) 01/16/18 03:50 Urine RBC (Auto) 1.0 /HPF (0.0-6.0) 01/16/18 03:50 Urine Bacteria (Auto) 1+ /HPF (Negative) 01/16/18 03:50 Hyaline Casts 1 /LPF 01/16/18 03:50 Urine Mucus 1+ /HPF 01/16/18 03:50
[2018-01-17] MEDS ORDERED: VANCOMYCIN PHARMACY TO DOSE IV SCH (13:00)
[2018-01-17 16:02] LABS: Hematocrit 38.1 % (35.5-45.6); Hemoglobin 12.9 gm/dl (11.8-15.2); Mean Corpuscular HGB Conc 34 % (32-34); Mean Corpuscular Hemoglobin 30 pg (28-32); Mean Corpuscular Volume 90 fl (84-94); Platelet Count 252 K/mm3 (140-440); Red Blood Count 4.23 M/mm3 (3.65-5.03); Red Cell Distribution Width 13.2 % (13.2-15.2)
[2018-01-17] MEDS: VANCOMYCIN 1,500 MG in NACL 0.9% 500 ML 500 ML IV SCH (16:03)
[2018-01-17 16:08] LABS: Basophils % (Auto) 0.2 % (0.0-1.8); Eosinophils # (Auto) 0.2 K/mm3 (0.0-0.4); Lymphocytes # (Auto) 1.9 K/mm3 (1.2-5.4); Monocytes % (Auto) 6.2 % (0.0-7.3)
[2018-01-17 16:14] LABS: BUN/Creatinine Ratio 9; Blood Urea Nitrogen 6 mg/dL (9-20); Calcium 8.7 mg/dL (8.4-10.2); Hemolysis Index 54
[2018-01-17] MEDS: TYLENOL PR PRN (17:02)
[2018-01-17] MEDS: AZACTAM/NS 1 GM/50 ML 1 GM/50 ML VIAL IV SCH ×2 (17:03→17:44)
[2018-01-18] MEDS: SODIUM CHLORIDE FLUSH SYRINGE 10 ML IV SCH ×3 (00:41→22:45)
[2018-01-18] MEDS: AZACTAM/NS 1 GM/50 ML 1 GM/50 ML VIAL IV SCH ×3 (00:41→16:24)
[2018-01-18] MEDS: VIMPAT 200 MG in NACL 0.9% 100 ML IV SCH ×2 (01:51→13:32)
[2018-01-18] MEDS: VANCOMYCIN 1,500 MG in NACL 0.9% 500 ML 500 ML IV SCH ×2 (02:51→13:33)
[2018-01-18] MEDS: ATIVAN IV PRN ×2 (03:17→10:22)
--- NOTE | 2018-01-18 07:18 | Progress Note ---
Assessment and Plan Assessment and plan: 27 year old male with history of retinitis pigmentosa, legally blind, seizure disorder was brought to the emergency room by his mother because he had 4 seizures at home. In the emergency room he had another seizure, he was loaded with Keppra, Ativan and admitted to the floor. Vision is leukocytosis and chest x-ray showed right lower lobe infiltrate. Admitted for the management of aspiration pneumonia. Patient was postictal on admission and is not able to take PO. Sepsis secondary to Aspiration pneumonia, HCAP - Patient was on IV Levaquin - Currently on IV Aztreonam and Vancomycin, no fever Recurrent seizure - Patient is on IV Keppra, lacosamide and Ativan - Once he is able to swallow will restart his by mouth medications - Continue IV fluids DVT prophylaxis - On heparin Disposition Continue inpatient care History Interval history: Patient was seen and evaluated this morning, patient was on the bed comfortably. I have discussed the management plan with his mother who was in the room at the time of examination. No fever episode overnight. Hospitalist Physical - Physical exam Narrative exam: Not in cardiopulmonary distress. Patient is legally blind. The patient appeared well nourished and normally developed. Vital signs as documented. Head exam is unremarkable. No scleral icterus . Neck is without jugular venous distension, thyromegaly, or carotid bruits. Lungs are clear to auscultation. Cardiac exam reveals regular rate and Rhythm. First and second heart sounds normal. No murmurs, rubs or gallops. Abdominal exam reveals normal bowel sounds, no masses, no organomegaly and no aortic enlargement. Extremities are nonedematous and both femoral and pedal pulses are normal. CAR FILLER:Alert. - Constitutional Vitals: Temp Pulse Resp BP Pulse Ox 98.4 F 93 H 36 H 141/70 97 01/17/18 23:16 01/17/18 23:16 01/17/18 23:16 01/17/18 23:16 01/17/18 23:16 Results - Labs CBC & Chem 7: 01/17/18 15:36 01/17/18 15:36 Labs: Laboratory Last Values WBC 16.1 K/mm3 (4.5-11.0) H 01/17/18 15:36 RBC 4.23 M/mm3 (3.65-5.03) 01/17/18 15:36 Hgb 12.9 gm/dl (11.8-15.2) 01/17/18 15:36 Hct 38.1 % (35.5-45.6) D 01/17/18 15:36 MCV 90 fl (84-94) 01/17/18 15:36 MCH 30 pg (28-32) 01/17/18 15:36 MCHC 34 % (32-34) 01/17/18 15:36 RDW 13.2 % (13.2-15.2) 01/17/18 15:36 Plt Count 252 K/mm3 (140-440) 01/17/18 15:36 Lymph % (Auto) 12.0 % (13.4-35.0) L 01/17/18 15:36 [place] % (Auto) 6.2 % (0.0-7.3) 01/17/18 15:36 Eos % (Auto) 1.0 % (0.0-4.3) 01/17/18 15:36 Baso % (Auto) 0.2 % (0.0-1.8) 01/17/18 15:36 Lymph # 1.9 K/mm3 (1.2-5.4) 01/17/18 15:36 [place] # 1.0 K/mm3 (0.0-0.8) H 01/17/18 15:36 Eos # 0.2 K/mm3 (0.0-0.4) 01/17/18 15:36 Baso # 0.0 K/mm3 (0.0-0.1) 01/17/18 15:36 Add Manual Diff Complete 01/17/18 15:36 Total Counted 100 01/16/18 03:21 Seg Neutrophils % 80.6 % (40.0-70.0) H 01/17/18 15:36 Seg Neuts % (Manual) 70.0 % (40.0-70.0) 01/16/18 03:21 Band Neutrophils % 23.0 % 01/16/18 03:21 Lymphocytes % (Manual) 3.0 % (13.4-35.0) L 01/16/18 03:21 Reactive Lymphs % (Man) 0 % 01/16/18 03:21 Monocytes % (Manual) 4.0 % (0.0-7.3) 01/16/18 03:21 Eosinophils % (Manual) 0 % (0.0-4.3) 01/16/18 03:21 Basophils % (Manual) 0 % (0.0-1.8) 01/16/18 03:21 Metamyelocytes % 0 % 01/16/18 03:21 Myelocytes % 0 % 01/16/18 03:21 Promyelocytes % 0 % 01/16/18 03:21 Blast Cells % 0 % 01/16/18 03:21 Nucleated RBC % Not Reportable 01/16/18 03:21 Seg Neutrophils # 13.0 K/mm3 (1.8-7.7) H 01/17/18 15:36 Seg Neutrophils # Man 19.0 K/mm3 (1.8-7.7) H 01/16/18 03:21 Band Neutrophils # 6.3 K/mm3 01/16/18 03:21 Lymphocytes # (Manual) 0.8 K/mm3 (1.2-5.4) L 01/16/18 03:21 Abs React Lymphs (Man) 0.0 K/mm3 01/16/18 03:21 Monocytes # (Manual) 1.1 K/mm3 (0.0-0.8) H 01/16/18 03:21 Eosinophils # (Manual) 0.0 K/mm3 (0.0-0.4) 01/16/18 03:21 Basophils # (Manual) 0.0 K/mm3 (0.0-0.1) 01/16/18 03:21 Metamyelocytes # 0.0 K/mm3 01/16/18 03:21 Myelocytes # 0.0 K/mm3 01/16/18 03:21 Promyelocytes # 0.0 K/mm3 01/16/18 03:21 Blast Cells # 0.0 K/mm3 01/16/18 03:21 WBC Morphology Not Reportable 01/16/18 03:21 Hypersegmented Neuts Not Reportable 01/16/18 03:21 Hyposegmented Neuts Not Reportable 01/16/18 03:21 Hypogranular Neuts Not Reportable 01/16/18 03:21 Smudge Cells Not Reportable 01/16/18 03:21 Toxic Granulation Not Reportable 01/16/18 03:21 Toxic Vacuolation Not Reportable 01/16/18 03:21 Dohle Bodies Not Reportable 01/16/18 03:21 Pelger-Huet Anomaly Not Reportable 01/16/18 03:21 Nereida Rods Not Reportable 01/16/18 03:21 Platelet Estimate Appears normal 01/16/18 03:21 Clumped Platelets Not Reportable 01/16/18 03:21 Plt Clumps, EDTA Not Reportable 01/16/18 03:21 Large Platelets Not Reportable 01/16/18 03:21 Giant Platelets Not Reportable 01/16/18 03:21 Platelet Satelliting Not Reportable 01/16/18 03:21 Plt Morphology Comment Not Reportable 01/16/18 03:21 RBC Morphology Not Reportable 01/16/18 03:21 Dimorphic RBCs Not Reportable 01/16/18 03:21 Polychromasia Not Reportable 01/16/18 03:21 Hypochromasia Not Reportable 01/16/18 03:21 Poikilocytosis Not Reportable 01/16/18 03:21 Anisocytosis 1+ 01/16/18 03:21 Microcytosis Not Reportable 01/16/18 03:21 Macrocytosis Not Reportable 01/16/18 03:21 Spherocytes Not Reportable 01/16/18 03:21 Pappenheimer Bodies Not Reportable 01/16/18 03:21 Sickle Cells Not Reportable 01/16/18 03:21 Target Cells Not Reportable 01/16/18 03:21 Tear Drop Cells Not Reportable 01/16/18 03:21 Ovalocytes Not Reportable 01/16/18 03:21 Helmet Cells Not Reportable 01/16/18 03:21 [place] Bodies Not Reportable 01/16/18 03:21 [place] Rings Not Reportable 01/16/18 03:21 Brie Cells Not Reportable 01/16/18 03:21 Bite Cells Not Reportable 01/16/18 03:21 Crenated Cell Not Reportable 01/16/18 03:21 Elliptocytes Not Reportable 01/16/18 03:21 Acanthocytes (Spur) Not Reportable 01/16/18 03:21 Rouleaux Not Reportable 01/16/18 03:21 Hemoglobin C Crystals Not Reportable 01/16/18 03:21 Schistocytes Not Reportable 01/16/18 03:21 Malaria parasites Not Reportable 01/16/18 03:21 Miguel Bodies Not Reportable 01/16/18 03:21 Hem Pathologist Commnt No 01/16/18 03:21 Sodium 140 mmol/L (137-145) 01/17/18 15:36 Potassium 5.3 mmol/L (3.6-5.0) H D 01/17/18 15:36 Chloride 109.9 mmol/L (98-107) H 01/17/18 15:36 Carbon Dioxide 15 mmol/L (22-30) L 01/17/18 15:36 Anion Gap 20 mmol/L 01/17/18 15:36 BUN 6 mg/dL (9-20) L 01/17/18 15:36 Creatinine 0.7 mg/dL (0.8-1.5) L 01/17/18 15:36 Estimated GFR > 60 ml/min 01/17/18 15:36 BUN/Creatinine Ratio 9 % 01/17/18 15:36 Glucose 86 mg/dL (75-100) 01/17/18 15:36 Calcium 8.7 mg/dL (8.4-10.2) 01/17/18 15:36 Total Bilirubin 0.20 mg/dL (0.1-1.2) 01/16/18 03:21 AST 42 units/L (5-40) H 01/16/18 03:21 ALT 57 units/L (7-56) H 01/16/18 03:21 Alkaline Phosphatase 87 units/L (35-129) 01/16/18 03:21 Total Protein 6.7 g/dL (6.3-8.2) 01/16/18 03:21 Albumin 4.0 g/dL (3.9-5) 01/16/18 03:21 Albumin/Globulin Ratio 1.5 % 01/16/18 03:21 Lipase 18 units/L (13-60) 01/16/18 03:21 Urine Color Yellow (Yellow) 01/16/18 03:50 Urine Turbidity Clear (Clear) 01/16/18 03:50 Urine pH 5.0 (5.0-7.0) 01/16/18 03:50 Ur Specific [place] 1.032 (1.003-1.030) H 01/16/18 03:50 Urine Protein 30 mg/dl mg/dL (Negative) 01/16/18 03:50 Urine Glucose (UA) Neg mg/dL (Negative) 01/16/18 03:50 Urine Ketones Neg mg/dL (Negative) 01/16/18 03:50 Urine Blood Neg (Negative) 01/16/18 03:50 Urine Nitrite Neg (Negative) 01/16/18 03:50 Urine Bilirubin Neg (Negative) 01/16/18 03:50 Urine Urobilinogen 4.0 mg/dL (<2.0) 01/16/18 03:50 Ur Leukocyte Esterase Neg (Negative) 01/16/18 03:50 Urine WBC (Auto) 2.0 /HPF (0.0-6.0) 01/16/18 03:50 Urine RBC (Auto) 1.0 /HPF (0.0-6.0) 01/16/18 03:50 Urine Bacteria (Auto) 1+ /HPF (Negative) 01/16/18 03:50 Hyaline Casts 1 /LPF 01/16/18 03:50 Urine Mucus 1+ /HPF 01/16/18 03:50
[2018-01-18] MEDS: TYLENOL PR PRN (07:33)
[2018-01-18 09:59] LABS: BUN/Creatinine Ratio 8; Blood Urea Nitrogen 4 mg/dL (9-20); Calcium 8.7 mg/dL (8.4-10.2); Hemolysis Index 66
[2018-01-18 10:04] LABS: Basophils # (Auto) 0.1 K/mm3 (0.0-0.1); Basophils % (Auto) 0.9 % (0.0-1.8); Eosinophils # (Auto) 0.5 K/mm3 (0.0-0.4); Eosinophils % (Auto) 3.4 % (0.0-4.3); Hematocrit 40.4 % (35.5-45.6); Hemoglobin 13.5 gm/dl (11.8-15.2); Lymphocytes # (Auto) 2.5 K/mm3 (1.2-5.4); Lymphocytes % (Auto) 17.4 % (13.4-35.0); Mean Corpuscular HGB Conc 33 % (32-34); Mean Corpuscular Hemoglobin 30 pg (28-32); Mean Corpuscular Volume 89 fl (84-94); Monocytes # (Auto) 0.7 K/mm3 (0.0-0.8); Monocytes % (Auto) 5.2 % (0.0-7.3); Platelet Count 348 K/mm3 (140-440); Red Blood Count 4.55 M/mm3 (3.65-5.03)
[2018-01-18] MEDS: HEPARIN SUB-Q SCH ×2 (10:23→22:45)
[2018-01-18] MEDS: KEPPRA 750 MG in NACL 0.9% 100 ML IV SCH (10:41)
[2018-01-18] MEDS: VIMPAT PO SCH ×2 (13:53→22:45)
[2018-01-18] MEDS ORDERED: KEPPRA PO SCH (14:00)
[2018-01-18] MEDS: TOPAMAX PO SCH ×2 (16:24→22:45)
[2018-01-18] MEDS: KEPPRA PO SCH ×2 (16:27→22:45)
[2018-01-18] MEDS: LaMICtal PO SCH ×2 (16:27→22:45)
[2018-01-18] MEDS: ATIVAN PO PRN (17:06)
[2018-01-18] MEDS: NACL 0.9% 1000 ML 1,000 ML IV SCH (18:07)
[2018-01-18] MEDS ORDERED: LAMOTRIGINE 300 MG PO SCH (22:00)
[2018-01-18] MEDS: VITAMIN D3 PO SCH (22:45)
[2018-01-18] MEDS: COLACE PO SCH (22:45)
[2018-01-19] MEDS: ATIVAN PO PRN (00:40)
[2018-01-19] MEDS: AZACTAM/NS 1 GM/50 ML 1 GM/50 ML VIAL IV SCH ×5 (00:44→19:02)
[2018-01-19] MEDS: VANCOMYCIN 1,500 MG in NACL 0.9% 500 ML 500 ML IV SCH ×2 (03:05→14:49)
--- NOTE | 2018-01-19 10:34 | Progress Note ---
Assessment and Plan Assessment and plan: 27 year old male with history of retinitis pigmentosa, legally blind, seizure disorder was brought to the emergency room by his mother because he had 4 seizures at home. In the emergency room he had another seizure, he was loaded with Keppra, Ativan and admitted to the floor. Vision is leukocytosis and chest x-ray showed right lower lobe infiltrate. Admitted for the management of aspiration pneumonia. Patient was postictal on admission and is not able to take PO. Sepsis secondary to Aspiration pneumonia, HCAP - Patient was on IV Levaquin - Currently on IV Aztreonam and Vancomycin, no fever, WBC is trending down - We'll check CBC Recurrent seizure - Patient was on IV Keppra, lacosamide and Ativan, changed to PO home seizure medications yesterday - Patient is on pured diet - Neurology consult appreciated DVT prophylaxis - On heparin Disposition Continue inpatient care Possible discharge tomorrow History Interval history: Patient was seen and evaluated this morning, patient was on the bed comfortably. I have discussed the management plan with his mother who was in the room at the time of examination. No fever or seizure episode overnight. Hospitalist Physical - Physical exam Narrative exam: Not in cardiopulmonary distress. Patient is legally blind. The patient appeared well nourished and normally developed. Vital signs as documented. Head exam is unremarkable. No scleral icterus . Neck is without jugular venous distension, thyromegaly, or carotid bruits. Lungs are clear to auscultation. Cardiac exam reveals regular rate and Rhythm. First and second heart sounds normal. No murmurs, rubs or gallops. Abdominal exam reveals normal bowel sounds, no masses, no organomegaly and no aortic enlargement. Extremities are nonedematous and both femoral and pedal pulses are normal. 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 Minimally communicative at baseline. - Constitutional Vitals: Temp Pulse Resp BP Pulse Ox 98.7 F 89 18 150/84 98 01/19/18 05:30 01/19/18 05:30 01/19/18 05:30 01/19/18 05:30 01/19/18 05:30 Results - Labs CBC & Chem 7: 01/18/18 09:10 01/18/18 09:10 Labs: Laboratory Last Values WBC 14.2 K/mm3 (4.5-11.0) H 01/18/18 09:10 RBC 4.55 M/mm3 (3.65-5.03) 01/18/18 09:10 Hgb 13.5 gm/dl (11.8-15.2) 01/18/18 09:10 Hct 40.4 % (35.5-45.6) 01/18/18 09:10 MCV 89 fl (84-94) 01/18/18 09:10 MCH 30 pg (28-32) 01/18/18 09:10 MCHC 33 % (32-34) 01/18/18 09:10 RDW 13.0 % (13.2-15.2) L 01/18/18 09:10 Plt Count 348 K/mm3 (140-440) 01/18/18 09:10 Lymph % (Auto) 17.4 % (13.4-35.0) 01/18/18 09:10 [place] % (Auto) 5.2 % (0.0-7.3) 01/18/18 09:10 Eos % (Auto) 3.4 % (0.0-4.3) 01/18/18 09:10 Baso % (Auto) 0.9 % (0.0-1.8) 01/18/18 09:10 Lymph # 2.5 K/mm3 (1.2-5.4) 01/18/18 09:10 [place] # 0.7 K/mm3 (0.0-0.8) 01/18/18 09:10 Eos # 0.5 K/mm3 (0.0-0.4) H 01/18/18 09:10 Baso # 0.1 K/mm3 (0.0-0.1) 01/18/18 09:10 Add Manual Diff Complete 01/17/18 15:36 Total Counted 100 01/16/18 03:21 Seg Neutrophils % 73.1 % (40.0-70.0) H 01/18/18 09:10 Seg Neuts % (Manual) 70.0 % (40.0-70.0) 01/16/18 03:21 Band Neutrophils % 23.0 % 01/16/18 03:21 Lymphocytes % (Manual) 3.0 % (13.4-35.0) L 01/16/18 03:21 Reactive Lymphs % (Man) 0 % 01/16/18 03:21 Monocytes % (Manual) 4.0 % (0.0-7.3) 01/16/18 03:21 Eosinophils % (Manual) 0 % (0.0-4.3) 01/16/18 03:21 Basophils % (Manual) 0 % (0.0-1.8) 01/16/18 03:21 Metamyelocytes % 0 % 01/16/18 03:21 Myelocytes % 0 % 01/16/18 03:21 Promyelocytes % 0 % 01/16/18 03:21 Blast Cells % 0 % 01/16/18 03:21 Nucleated RBC % Not Reportable 01/16/18 03:21 Seg Neutrophils # 10.4 K/mm3 (1.8-7.7) H 01/18/18 09:10 Seg Neutrophils # Man 19.0 K/mm3 (1.8-7.7) H 01/16/18 03:21 Band Neutrophils # 6.3 K/mm3 01/16/18 03:21 Lymphocytes # (Manual) 0.8 K/mm3 (1.2-5.4) L 01/16/18 03:21 Abs React Lymphs (Man) 0.0 K/mm3 01/16/18 03:21 Monocytes # (Manual) 1.1 K/mm3 (0.0-0.8) H 01/16/18 03:21 Eosinophils # (Manual) 0.0 K/mm3 (0.0-0.4) 01/16/18 03:21 Basophils # (Manual) 0.0 K/mm3 (0.0-0.1) 01/16/18 03:21 Metamyelocytes # 0.0 K/mm3 01/16/18 03:21 Myelocytes # 0.0 K/mm3 01/16/18 03:21 Promyelocytes # 0.0 K/mm3 01/16/18 03:21 Blast Cells # 0.0 K/mm3 01/16/18 03:21 WBC Morphology Not Reportable 01/16/18 03:21 Hypersegmented Neuts Not Reportable 01/16/18 03:21 Hyposegmented Neuts Not Reportable 01/16/18 03:21 Hypogranular Neuts Not Reportable 01/16/18 03:21 Smudge Cells Not Reportable 01/16/18 03:21 Toxic Granulation Not Reportable 01/16/18 03:21 Toxic Vacuolation Not Reportable 01/16/18 03:21 Dohle Bodies Not Reportable 01/16/18 03:21 Pelger-Huet Anomaly Not Reportable 01/16/18 03:21 Nereida Rods Not Reportable 01/16/18 03:21 Platelet Estimate Appears normal 01/16/18 03:21 Clumped Platelets Not Reportable 01/16/18 03:21 Plt Clumps, EDTA Not Reportable 01/16/18 03:21 Large Platelets Not Reportable 01/16/18 03:21 Giant Platelets Not Reportable 01/16/18 03:21 Platelet Satelliting Not Reportable 01/16/18 03:21 Plt Morphology Comment Not Reportable 01/16/18 03:21 RBC Morphology Not Reportable 01/16/18 03:21 Dimorphic RBCs Not Reportable 01/16/18 03:21 Polychromasia Not Reportable 01/16/18 03:21 Hypochromasia Not Reportable 01/16/18 03:21 Poikilocytosis Not Reportable 01/16/18 03:21 Anisocytosis 1+ 01/16/18 03:21 Microcytosis Not Reportable 01/16/18 03:21 Macrocytosis Not Reportable 01/16/18 03:21 Spherocytes Not Reportable 01/16/18 03:21 Pappenheimer Bodies Not Reportable 01/16/18 03:21 Sickle Cells Not Reportable 01/16/18 03:21 Target Cells Not Reportable 01/16/18 03:21 Tear Drop Cells Not Reportable 01/16/18 03:21 Ovalocytes Not Reportable 01/16/18 03:21 Helmet Cells Not Reportable 01/16/18 03:21 [place] Bodies Not Reportable 01/16/18 03:21 [place] Rings Not Reportable 01/16/18 03:21 [place] Cells Not Reportable 01/16/18 03:21 Bite Cells Not Reportable 01/16/18 03:21 Crenated Cell Not Reportable 01/16/18 03:21 Elliptocytes Not Reportable 01/16/18 03:21 Acanthocytes (Spur) Not Reportable 01/16/18 03:21 Rouleaux Not Reportable 01/16/18 03:21 Hemoglobin C Crystals Not Reportable 01/16/18 03:21 Schistocytes Not Reportable 01/16/18 03:21 Malaria parasites Not Reportable 01/16/18 03:21 Miguel Bodies Not Reportable 01/16/18 03:21 Hem Pathologist Commnt No 01/16/18 03:21 Sodium 143 mmol/L (137-145) 01/18/18 09:10 Potassium 3.8 mmol/L (3.6-5.0) D 01/18/18 09:10 Chloride 106.5 mmol/L (98-107) 01/18/18 09:10 Carbon Dioxide 15 mmol/L (22-30) L 01/18/18 09:10 Anion Gap 25 mmol/L 01/18/18 09:10 BUN 4 mg/dL (9-20) L 01/18/18 09:10 Creatinine 0.5 mg/dL (0.8-1.5) L 01/18/18 09:10 Estimated GFR > 60 ml/min 01/18/18 09:10 BUN/Creatinine Ratio 8 % 01/18/18 09:10 Glucose 77 mg/dL (75-100) 01/18/18 09:10 Calcium 8.7 mg/dL (8.4-10.2) 01/18/18 09:10 Total Bilirubin 0.20 mg/dL (0.1-1.2) 01/16/18 03:21 AST 42 units/L (5-40) H 01/16/18 03:21 ALT 57 units/L (7-56) H 01/16/18 03:21 Alkaline Phosphatase 87 units/L (35-129) 01/16/18 03:21 Total Protein 6.7 g/dL (6.3-8.2) 01/16/18 03:21 Albumin 4.0 g/dL (3.9-5) 01/16/18 03:21 Albumin/Globulin Ratio 1.5 % 01/16/18 03:21 Lipase 18 units/L (13-60) 01/16/18 03:21 Urine Color Yellow (Yellow) 01/16/18 03:50 Urine Turbidity Clear (Clear) 01/16/18 03:50 Urine pH 5.0 (5.0-7.0) 01/16/18 03:50 Ur Specific [place] 1.032 (1.003-1.030) H 01/16/18 03:50 Urine Protein 30 mg/dl mg/dL (Negative) 01/16/18 03:50 Urine Glucose (UA) Neg mg/dL (Negative) 01/16/18 03:50 Urine Ketones Neg mg/dL (Negative) 01/16/18 03:50 Urine Blood Neg (Negative) 01/16/18 03:50 Urine Nitrite Neg (Negative) 01/16/18 03:50 Urine Bilirubin Neg (Negative) 01/16/18 03:50 Urine Urobilinogen 4.0 mg/dL (<2.0) 01/16/18 03:50 Ur Leukocyte Esterase Neg (Negative) 01/16/18 03:50 Urine WBC (Auto) 2.0 /HPF (0.0-6.0) 01/16/18 03:50 Urine RBC (Auto) 1.0 /HPF (0.0-6.0) 01/16/18 03:50 Urine Bacteria (Auto) 1+ /HPF (Negative) 01/16/18 03:50 Hyaline Casts 1 /LPF 01/16/18 03:50 Urine Mucus 1+ /HPF 01/16/18 03:50
[2018-01-19] MEDS: VITAMIN D3 PO SCH (10:39)
[2018-01-19] MEDS: VIMPAT PO SCH (10:39)
[2018-01-19] MEDS: LaMICtal PO SCH (10:40)
[2018-01-19] MEDS: KEPPRA PO SCH ×2 (10:40→19:02)
[2018-01-19] MEDS: SODIUM CHLORIDE FLUSH SYRINGE 10 ML IV SCH (10:41)
[2018-01-19] MEDS: HEPARIN SUB-Q SCH (10:42)
[2018-01-19] MEDS: COLACE PO SCH (10:42)
[2018-01-19 11:28] LABS: Basophils # (Auto) 0.1 K/mm3 (0.0-0.1); Basophils % (Auto) 0.8 % (0.0-1.8); Eosinophils # (Auto) 0.7 K/mm3 (0.0-0.4); Eosinophils % (Auto) 7.6 % (0.0-4.3); Hematocrit 40.6 % (35.5-45.6); Hemoglobin 13.7 gm/dl (11.8-15.2); Lymphocytes # (Auto) 2.8 K/mm3 (1.2-5.4); Lymphocytes % (Auto) 28.9 % (13.4-35.0); Mean Corpuscular HGB Conc 34 % (32-34); Mean Corpuscular Hemoglobin 31 pg (28-32); Mean Corpuscular Volume 92 fl (84-94); Monocytes # (Auto) 0.8 K/mm3 (0.0-0.8); Platelet Count 365 K/mm3 (140-440); Red Blood Count 4.43 M/mm3 (3.65-5.03)
[2018-01-19] MEDS: NACL 0.9% 1000 ML 1,000 ML IV SCH (11:45)
[2018-01-19] MEDS: TOPAMAX PO SCH ×2 (11:55→19:01)
--- NOTE | 2018-01-19 13:56 | Event Note ---
Date: 01/19/18 Reviewed chart and conferred with Dr. Pack. His family should be told that if he too many seizures in future, he should go to [facility] where they can interrogate and adjust his vagal nerve stimulator, which is important to his seizure control, and which we cannot check and adjust.
[2018-01-19] MEDS: ATIVAN IV PRN (14:42)
[2018-01-19] MEDS ORDERED: PHENERGAN PR PRN (18:08)
[2018-01-19] MEDS ORDERED: DIASTAT ACUDIAL PR PRN (19:00)
[2018-01-19] MEDS: VIMPAT FEEDTUBE SCH (19:02)
[2018-01-19] MEDS: LaMICtal FEEDTUBE SCH (19:02)
--- NOTE | 2018-01-19 21:32 | Progress Note ---
Assessment and Plan Impression: 1. Complex partial epilepsy, with secondary generalization, intractable Plan: 1. Discussed with Dr. Pack need to change to nonseizure inducing antibiotic such as cephalosporin or macrolide, avoiding PCN derivatives, quinolones, Flagyl and Diflucan and similar drugs if possible, depending on ID's opinion. 2. Will lower Keppra to see if nausea improves, since his mother said he had done well on 1000 mg bid till April. 3. Will try trazodone for sleep. At home, his mother should try melatonin initially 3 mg, building up to as much as 24 mg. Told her it does not cause seizures or worsen them despite labels that may be to the contrary. Warned her it can cause temporary depression and abnormal dreams. I told her it is good for prevention of headaches, safer than Fioricet. Imitrex can continue but should avoid taking it several times a week (which she does not have him do currently yet) since that could cause rebound headache. 4. Suggest you give him an Rx for Lorazepam Intensol 2 mg/ml to squirt into his mouth at time of seizures, for better absorption. Alternative is Diastat rectally. 5. I suggested to his mother that she call [facility] and ask for names of epilepsy specialists and find out where there clinics off. She wishes to not return to [place] since she has had no good luck with their inpatient epilepsy unit or the [facility] Center clinic (not an epilepsy clinic) that they send him to, and she did not like the nursing facility after [place] that they sent him to either ([facility]). I also suggested she could call [facility] neurology clinic. I told her she needs to ask if these places do VNS programming. 6. Will add 100 mg B6 in case his epilepsy responds to it. 7. Will change his evening doses to supper to see if that helps prevent nausea and vomiting. Also change Zofran to Phenergan suppository for that purpose since his mother says Zofran sometimes triggers migraine for him which then triggers a seizure. 45 minutes spent including long discussion possible referrals as an outpatient and discussion of strategies to stop the nausea and vomiting and improve his ambulation (mainly by medication changes). Could go home in am if stable with these changes, otherwise suggest sending him to [facility] or [facility] for epilepsy expertise (rather than [place]). Subjective Date of service: 01/19/18 Principal diagnosis: seizures Interval history: HPI: This 28-year-old white male is seen again in follow-up for seizures. He cannot give a history but his mother does. She states he has had no sleep for 2 days until Ativan was given parenterally today which then caused him to fall out of bed delirious. She states he had vagal nerve stimulator implanted 2.5 years ago. She was told it would sense his seizures and counter shock them. This might mean it is one of the newer types that detect heart rate increases and then deliver stimulation to prevent a seizure. She states the magnet for the VNS does not seem to trigger any coughing or speech change though the VNS adjustments early on did result in some coughing. The VNS itself does not trigger any speech change or coughing either now. She states he had no seizures for 6 months until April 2017 when he had 4 seizures and was admitted to [place] and stayed there until June and then was sent to [facility]. She states she has not walked since being admitted to the hospital though he previously walked with a walker and could use a portable potty. She states Keppra was adjusted in September by an [place] neurologist Dr. Alcazar who is not an epilepsy specialist at which time he apparently was changed to liquid or was lowered to 1500 mg liquid twice a day though he had done well on 1000 mg tablets twice a day prior to the April admission. In the past 8 or 9 weeks he has been hospitalized several times at [facility] or here for nausea and vomiting perhaps in part due to the change to liquid Keppra. Seizures begin with head turn to the right and then shaking with biting of tongue or cheek and wetting himself followed by head turning sometimes to the left with additional shaking, each episode of the shaking lasting 1.5-2 minutes. She was told to give 1500 mg of Keppra at the time of any seizure. She asks about rectal Valium. She states Dr. Alcazar refused to see him because they were 8 minutes late and but also stated there was nothing he could do for him. He has never been seen at the [place] epilepsy clinic but only in the hospital there. Pepcid helped some with nausea and vomiting but Zofran can trigger migraines that then trigger seizures. He gained 77 pounds while in the [facility]. He currently takes Xanax 1 mg in the morning and 2 mg at bedtime and Valium 2 mg at bedtime to help him sleep but these have not been working. She does not want to go back to [place]. She gives his seizure meds in the morning then not till 9 or 10 pm which might contribute to nausea and vomiting. Objective - Exam Narrative Exam: General appearance: well-developed but obese (per BMI) mid 20s white male sleepy and a little agitated, seen with his mother and later her fianc. Neurologic Exam: Mental Status: Not oriented except to think that he is at his "house", never oriented to year but cannot give the month which she normally apparently could do, speech is clear but limited, cannot name a pen when I place it in his hand, nor can he name a spoon which she says he normally should be able to do. Cranial Nerves: koenig cannot be checked due to his retinitis pigmentosa, PERRL , EOMs full with gaze evoked horizontal nystagmus probably due to the Ativan, no facial weakness, hears finger rub bilaterally, shoulder shrug is 5 X 2, tongue protrudes midline. Cerebellar: finger to nose and [id number] are normal. Motor Exam Upper Extremities: no drift or pronation, Gautam are normal. Motor Exam Lower Extremities: no leg lag, quadriceps are 4+, anterior tibials are 5 right and 4- left and gastrocnemius are 5 bilaterally. Gautam are normal. - Vital Sign Vital Signs - 12hr 01/19/18 01/19/18 12:11 17:33 Temperature 99.0 F 98.0 F Pulse Rate 82 94 H Respiratory 20 32 H Rate Blood Pressure 122/83 126/72 O2 Sat by Pulse 98 100 Oximetry - Laboratory Findings CBC and BMP: 01/19/18 11:08 01/18/18 09:10 Abnormal Lab Findings: Abnormal Labs 01/16/18 01/16/18 01/16/18 03:21 03:21 03:50 WBC 27.2 H RDW 12.7 L Lymph % (Auto) Butts % (Auto) Eos % (Auto) Butts # Eos # Seg Neutrophils % Lymphocytes % (Manual) 3.0 L Seg Neutrophils # Seg Neutrophils # Man 19.0 H Lymphocytes # (Manual) 0.8 L Monocytes # (Manual) 1.1 H Potassium Chloride 107.5 H Carbon Dioxide 17 L BUN Creatinine Glucose 165 H AST 42 H ALT 57 H Ur Specific [place] 1.032 H 01/17/18 01/17/18 01/18/18 15:36 15:36 09:10 WBC 16.1 H 14.2 H RDW 13.0 L Lymph % (Auto) 12.0 L Butts % (Auto) Eos % (Auto) Butts # 1.0 H Eos # 0.5 H Seg Neutrophils % 80.6 H 73.1 H Lymphocytes % (Manual) Seg Neutrophils # 13.0 H 10.4 H Seg Neutrophils # Man Lymphocytes # (Manual) Monocytes # (Manual) Potassium 5.3 H D Chloride 109.9 H Carbon Dioxide 15 L BUN 6 L Creatinine 0.7 L Glucose AST ALT Ur Specific [place] 01/18/18 01/19/18 09:10 11:08 WBC RDW 13.0 L Lymph % (Auto) Butts % (Auto) 8.0 H Eos % (Auto) 7.6 H Butts # Eos # 0.7 H Seg Neutrophils % Lymphocytes % (Manual) Seg Neutrophils # Seg Neutrophils # Man Lymphocytes # (Manual) Monocytes # (Manual) Potassium Chloride Carbon Dioxide 15 L BUN 4 L Creatinine 0.5 L Glucose AST ALT Ur Specific [place]
[2018-01-20] MEDS: AZACTAM/NS 1 GM/50 ML 1 GM/50 ML VIAL IV SCH ×3 (00:07→13:03)
[2018-01-20] MEDS: VIMPAT FEEDTUBE SCH ×3 (00:10→23:46)
[2018-01-20] MEDS: TOPAMAX PO SCH ×3 (00:10→23:47)
[2018-01-20] MEDS: VITAMIN D3 PO SCH ×3 (00:12→23:46)
[2018-01-20] MEDS: KEPPRA PO SCH ×3 (00:12→23:46)
[2018-01-20] MEDS: DESYREL PO SCH ×2 (00:13→23:45)
[2018-01-20] MEDS: HEPARIN SUB-Q SCH ×3 (00:13→23:45)
[2018-01-20] MEDS: LaMICtal FEEDTUBE SCH ×3 (00:14→23:46)
[2018-01-20] MEDS: ATIVAN IV PRN ×3 (00:14→23:45)
[2018-01-20] MEDS: TYLENOL PO PRN ×2 (00:25→23:45)
[2018-01-20] MEDS: COLACE PO SCH ×2 (00:26→11:46)
[2018-01-20] MEDS: SODIUM CHLORIDE FLUSH SYRINGE 10 ML IV SCH ×3 (00:26→23:45)
[2018-01-20] MEDS: VANCOMYCIN 1,500 MG in NACL 0.9% 500 ML 500 ML IV SCH (03:00)
[2018-01-20 04:36] LABS: Basophils # (Auto) 0.1 K/mm3 (0.0-0.1); Basophils % (Auto) 1.3 % (0.0-1.8); Eosinophils # (Auto) 0.6 K/mm3 (0.0-0.4); Eosinophils % (Auto) 6.3 % (0.0-4.3); Hematocrit 39.2 % (35.5-45.6); Hemoglobin 13.2 gm/dl (11.8-15.2); Lymphocytes % (Auto) 34.3 % (13.4-35.0); Mean Corpuscular HGB Conc 34 % (32-34); Mean Corpuscular Hemoglobin 30 pg (28-32); Mean Corpuscular Volume 90 fl (84-94); Monocytes # (Auto) 0.8 K/mm3 (0.0-0.8); Monocytes % (Auto) 8.8 % (0.0-7.3); Platelet Count 413 K/mm3 (140-440); Red Blood Count 4.35 M/mm3 (3.65-5.03); Red Cell Distribution Width 13.3 % (13.2-15.2)
[2018-01-20 05:01] LABS: BUN/Creatinine Ratio 3; Blood Urea Nitrogen 2 mg/dL (9-20); Calcium 8.8 mg/dL (8.4-10.2); Hemolysis Index 16
--- NOTE | 2018-01-20 08:59 | Consultation ---
History of Present Illness - Reason for Consult Consult date: 01/20/18 Aspiration pna Requesting physician: DON HERNANDEZ - History of Present Illness HPI: 28-year-old male past medical history of retinitis pigmentosa, legally blind, seizure disorder since 16 yo, s/p vagal nerve stimulator placement 2 years ago at [facility], who was brought to the emergency room on 01/16/18 by his mother because he had 4 seizures at home. He was also having nausea and vomiting at home. In the emergency room he had another seizure, he was loaded with keppra, ativan. Vital signs in the ER, initial temperature of 98 and then spiked fever to 101.2, pulse 120, respiratory rate 28, saturation 95%, blood pressure 136/71. White blood cell count was 27.2, H&H 15.2 and 44.9, platelets 425. Bun and creatinine 11 and 1.0. AST ALT and alkaline phosphatase had the mild elevation. UA was negative. CT of the head showed no acute findings. Chest x-ray showed patchy airspace disease in the right lung base and vascular congestion. Patient received in the emergency room intravenous vancomycin, ceftriaxone and levofloxacin. He is currently on Azactam and vancomycin. Of note patient was recently admitted to [facility] from 01/01 -01/06/18 due to recurrent seizures, nausea and vomiting and Escherichia coli UTI for which he was prescribed Bactrim. Neurology service is requesting for ID service to review antibiotics since is concern about the potential of seizure inducing with current antibiotics. Microbiology: Urine cultures: 3 neg Current Antimicrobials: Vancomycin 8/3- Aztreonam 8/4- Previous Antimicrobials: Ceftriaxone 8/3 Levofloxacin 8/3 Past History Past Medical History: seizures, other (blind) Past Surgical History: Other (placement of vagal stimulator.) Social history: no significant social history, lives with family. denies: smoking, alcohol abuse, prescription drug abuse, IV drug use Family history: hypertension Medications and Allergies Allergies Allergy/AdvReac Type Severity Reaction Status Date / Time Penicillins Allergy Angioedema Verified 01/01/18 13:03 shellfish derived Allergy Swelling Verified 01/01/18 13:03 Home Medications Medication Instructions Recorded Confirmed Last Taken Type Topiramate [Topamax] 150 mg PO BID 10/27/16 01/16/18 Unknown History lamoTRIgine [LaMICtal] 300 mg PO BID 10/27/16 01/16/18 Unknown History levETIRAcetam [Keppra TAB] 1,500 mg PO BID 10/27/16 01/16/18 01/01/18 History Cholecalciferol Vit D3 [Vitamin D3] 1,000 unit PO BID 01/01/18 01/16/18 Unknown History Lacosamide [Vimpat] 200 mg PO BID 01/01/18 01/16/18 Unknown History Docusate Sodium [Colace CAP] 100 mg PO BID #30 capsule 01/06/18 01/16/18 Unknown Rx LORazepam [Ativan] 1 mg PO BID PRN #6 tab 01/06/18 01/16/18 Unknown Rx Active Meds: Active Medications Acetaminophen (Tylenol) 650 mg PO Q4H PRN PRN Reason: Pain MILD(1-3)/Fever >100.5/ALCARAZ Last Admin: 01/20/18 00:25 Dose: 650 mg Acetaminophen (Tylenol) 650 mg AR Q4H PRN PRN Reason: Pain, Mild (1-3) Last Admin: 01/18/18 07:33 Dose: 650 mg Cholecalciferol (Vitamin D3) 1,000 unit PO BID [facility] Last Admin: 01/20/18 00:12 Dose: 1,000 unit Docusate Sodium (Colace) 100 mg PO BID [facility] Last Admin: 01/20/18 00:26 Dose: 100 mg Heparin Sodium (Porcine) (Heparin) 5,000 unit SUB-Q Q12HR [facility] Last Admin: 01/20/18 00:13 Dose: 5,000 unit Sodium Chloride (Nacl 0.9% 1000 Ml) 1,000 mls @ 125 mls/hr IV DIRECT [facility] Last Admin: 01/19/18 11:45 Dose: 125 mls/hr Aztreonam (Azactam/Ns 1 Gm/50 Ml) 1 gm in 50 mls @ 50 mls/hr IV Q6HR [facility]; Protocol Last Admin: 01/20/18 05:56 Dose: Not Given Vancomycin HCl 1,500 mg/ (Sodium Chloride) 530 mls @ 333.333 mls/hr IV Q12H [facility] Last Admin: 01/20/18 03:00 Dose: 333.333 mls/hr Lacosamide (Vimpat) 200 mg FEEDTUBE BID [facility] Last Admin: 01/20/18 00:10 Dose: 200 mg Lamotrigine (Lamictal) 300 mg FEEDTUBE BID [facility] Last Admin: 01/20/18 00:14 Dose: 300 mg Levetiracetam (Keppra) 1,000 mg PO BID [facility] Last Admin: 01/20/18 00:12 Dose: 1,000 mg Lorazepam (Ativan) 1 mg IV Q6H PRN PRN Reason: Agitation Last Admin: 01/20/18 00:14 Dose: 1 mg Promethazine HCl (Phenergan) 25 mg AR Q6H PRN PRN Reason: Nausea And Vomiting Pyridoxine HCl (Vitamin B-6) 100 mg PO QDAY [facility] Sodium Chloride (Sodium Chloride Flush Syringe 10 Ml) 10 ml IV BID [facility] Last Admin: 01/20/18 00:26 Dose: 10 ml Sodium Chloride (Sodium Chloride Flush Syringe 10 Ml) 10 ml IV PRN PRN PRN Reason: LINE FLUSH Topiramate (Topamax) 150 mg PO BID [facility] Last Admin: 01/20/18 00:10 Dose: 150 mg Trazodone HCl (Desyrel) 100 mg PO QHS [facility] Last Admin: 01/20/18 00:13 Dose: 100 mg Vancomycin HCl (Vancomycin Pharmacy To Dose) 1 each IV PKCONSULT [facility]; Protocol Review of Systems ROS unobtainable: due to mental status Physical Examination - Physical Exam Narrative exam: General appearance: Pt in NAD. Sleeping. HEENT: NC/AT. Normal hard and soft palate. Normal external ears. Neck: Trachea midline; supple, no thyromegaly or lymphadenopathy. Lungs: CTA, with normal respiratory effort and no intercostal retractions. CV: S1,S2. Left upper chest vagal nerve stimulator, site w/o erythema/drainage/ tenderness. Abdomen: Soft, non-tender; no masses or hepatosplenomegaly Extremities: No peripheral edema or extremity lymphadenopathy Skin: Normal temperature, turgor and texture; no rash, ulcers or subcutaneous nodules Neuro: Blind. Moves extremities. Lines: No CVL / PICC - Constitutional Vitals: Vital Signs Temp Pulse Resp BP Pulse Ox 97.9 F 76 18 127/75 99 01/20/18 06:35 01/20/18 06:35 01/20/18 06:35 01/20/18 06:35 01/20/18 06:35 Temperature -Last 24 Hours Temperature 97.9 F Temperature 98.1 F Temperature 98.0 F Temperature 99.0 F Results - Labs CBC & Chem 7: 01/20/18 03:52 01/20/18 03:52 Labs: Abnormal lab results 01/19/18 01/20/18 01/20/18 Range/Units 11:08 03:52 03:52 RDW 13.0 L (13.2-15.2) % Cross % (Auto) 8.0 H 8.8 H (0.0-7.3) % Eos % (Auto) 7.6 H 6.3 H (0.0-4.3) % Eos # 0.7 H 0.6 H (0.0-0.4) K/mm3 Chloride 110.0 H (98-107) mmol/L Carbon Dioxide 15 L (22-30) mmol/L BUN 2 L (9-20) mg/dL Creatinine 0.6 L (0.8-1.5) mg/dL Glucose 64 L (75-100) mg/dL Assessment and Plan Assessment: 1) Aspiration pneumonitis in setting of nausea and vomiting and multiple episodes of seizures. Clinically improved. 2) Acute fever due to 1) and could also be due to seizures. Resolved. 3) Acute leukocytosis. Resolved. 4) Complex partial epilepsy, with secondary generalization, with acute seizures present on admission 5) Recent urine cx with E coli, s/p course of bactrim. Urine cx current admission was negative. 6) PCN allergy (hives, swelling as per pt's mother). Plan: Stop IV vancomycin and aztreonam. Start po clindamycin through 01/21/18. d/w pt's mother and RN. Thank you for your consultation, will follow up with you. Hiwot Johnson MD Infectious Diseases Specialist [facility] ([facility]) M [phone]
--- NOTE | 2018-01-20 10:28 | Progress Note ---
Assessment and Plan Assessment and plan: Sepsis secondary to Aspiration pneumonia, HCAP - Patient was on IV Levaquin - Currently on IV Aztreonam and Vancomycin, no fever, WBC is trending down - We'll check CBC Recurrent seizure - Patient was on IV Keppra, lacosamide and Ativan, changed to PO home seizure medications yesterday - Patient is on pured diet - Neurology consult appreciated DVT prophylaxis - On heparin Disposition Continue inpatient care\ Anticipate discharge in a.m. if OK with ID and neurology History Interval history: 27 year old male with history of retinitis pigmentosa, legally blind, seizure disorder was brought to the emergency room by his mother because he had 4 seizures at home. In the emergency room he had another seizure, he was loaded with Keppra, Ativan and admitted to the floor. Vision is leukocytosis and chest x-ray showed right lower lobe infiltrate. Admitted for the management of aspiration pneumonia. Patient was postictal on admission and is not able to take PO. No new issues overnight. Hospitalist Physical - Constitutional Vitals: Temp Pulse Resp BP Pulse Ox 97.9 F 76 18 127/75 99 01/20/18 06:35 01/20/18 06:35 01/20/18 06:35 01/20/18 06:35 01/20/18 06:35 General appearance: Present: no acute distress, well-nourished - EENT Eyes: Present: PERRL, EOM intact ENT: hearing intact, clear oral mucosa, dentition normal - Neck Neck: Present: supple, normal ROM - Respiratory Respiratory effort: normal Respiratory: bilateral: CTA - Cardiovascular Rhythm: regular Heart Sounds: Present: S1 & S2. Absent: gallop, rub - Extremities Extremities: no ischemia, No edema, Full ROM - Abdominal General gastrointestinal: soft, non-tender, non-distended, normal bowel sounds - Integumentary Integumentary: Present: clear, warm, dry - Neurologic Neurologic: CNII-XII intact, moves all extremities Results - Labs CBC & Chem 7: 01/20/18 03:52 01/20/18 03:52 Labs: Laboratory Last Values WBC 8.9 K/mm3 (4.5-11.0) 01/20/18 03:52 RBC 4.35 M/mm3 (3.65-5.03) 01/20/18 03:52 Hgb 13.2 gm/dl (11.8-15.2) 01/20/18 03:52 Hct 39.2 % (35.5-45.6) 01/20/18 03:52 MCV 90 fl (84-94) 01/20/18 03:52 MCH 30 pg (28-32) 01/20/18 03:52 MCHC 34 % (32-34) 01/20/18 03:52 RDW 13.3 % (13.2-15.2) 01/20/18 03:52 Plt Count 413 K/mm3 (140-440) 01/20/18 03:52 Lymph % (Auto) 34.3 % (13.4-35.0) 01/20/18 03:52 [place] % (Auto) 8.8 % (0.0-7.3) H 01/20/18 03:52 Eos % (Auto) 6.3 % (0.0-4.3) H 01/20/18 03:52 Baso % (Auto) 1.3 % (0.0-1.8) 01/20/18 03:52 Lymph # 3.0 K/mm3 (1.2-5.4) 01/20/18 03:52 [place] # 0.8 K/mm3 (0.0-0.8) 01/20/18 03:52 Eos # 0.6 K/mm3 (0.0-0.4) H 01/20/18 03:52 Baso # 0.1 K/mm3 (0.0-0.1) 01/20/18 03:52 Add Manual Diff Complete 01/17/18 15:36 Total Counted 100 01/16/18 03:21 Seg Neutrophils % 49.3 % (40.0-70.0) 01/20/18 03:52 Seg Neuts % (Manual) 70.0 % (40.0-70.0) 01/16/18 03:21 Band Neutrophils % 23.0 % 01/16/18 03:21 Lymphocytes % (Manual) 3.0 % (13.4-35.0) L 01/16/18 03:21 Reactive Lymphs % (Man) 0 % 01/16/18 03:21 Monocytes % (Manual) 4.0 % (0.0-7.3) 01/16/18 03:21 Eosinophils % (Manual) 0 % (0.0-4.3) 01/16/18 03:21 Basophils % (Manual) 0 % (0.0-1.8) 01/16/18 03:21 Metamyelocytes % 0 % 01/16/18 03:21 Myelocytes % 0 % 01/16/18 03:21 Promyelocytes % 0 % 01/16/18 03:21 Blast Cells % 0 % 01/16/18 03:21 Nucleated RBC % Not Reportable 01/16/18 03:21 Seg Neutrophils # 4.4 K/mm3 (1.8-7.7) 01/20/18 03:52 Seg Neutrophils # Man 19.0 K/mm3 (1.8-7.7) H 01/16/18 03:21 Band Neutrophils # 6.3 K/mm3 01/16/18 03:21 Lymphocytes # (Manual) 0.8 K/mm3 (1.2-5.4) L 01/16/18 03:21 Abs React Lymphs (Man) 0.0 K/mm3 01/16/18 03:21 Monocytes # (Manual) 1.1 K/mm3 (0.0-0.8) H 01/16/18 03:21 Eosinophils # (Manual) 0.0 K/mm3 (0.0-0.4) 01/16/18 03:21 Basophils # (Manual) 0.0 K/mm3 (0.0-0.1) 01/16/18 03:21 Metamyelocytes # 0.0 K/mm3 01/16/18 03:21 Myelocytes # 0.0 K/mm3 01/16/18 03:21 Promyelocytes # 0.0 K/mm3 01/16/18 03:21 Blast Cells # 0.0 K/mm3 01/16/18 03:21 WBC Morphology Not Reportable 01/16/18 03:21 Hypersegmented Neuts Not Reportable 01/16/18 03:21 Hyposegmented Neuts Not Reportable 01/16/18 03:21 Hypogranular Neuts Not Reportable 01/16/18 03:21 Smudge Cells Not Reportable 01/16/18 03:21 Toxic Granulation Not Reportable 01/16/18 03:21 Toxic Vacuolation Not Reportable 01/16/18 03:21 Dohle Bodies Not Reportable 01/16/18 03:21 Pelger-Huet Anomaly Not Reportable 01/16/18 03:21 Nereida Rods Not Reportable 01/16/18 03:21 Platelet Estimate Appears normal 01/16/18 03:21 Clumped Platelets Not Reportable 01/16/18 03:21 Plt Clumps, EDTA Not Reportable 01/16/18 03:21 Large Platelets Not Reportable 01/16/18 03:21 Giant Platelets Not Reportable 01/16/18 03:21 Platelet Satelliting Not Reportable 01/16/18 03:21 Plt Morphology Comment Not Reportable 01/16/18 03:21 RBC Morphology Not Reportable 01/16/18 03:21 Dimorphic RBCs Not Reportable 01/16/18 03:21 Polychromasia Not Reportable 01/16/18 03:21 Hypochromasia Not Reportable 01/16/18 03:21 Poikilocytosis Not Reportable 01/16/18 03:21 Anisocytosis 1+ 01/16/18 03:21 Microcytosis Not Reportable 01/16/18 03:21 Macrocytosis Not Reportable 01/16/18 03:21 Spherocytes Not Reportable 01/16/18 03:21 Pappenheimer Bodies Not Reportable 01/16/18 03:21 Sickle Cells Not Reportable 01/16/18 03:21 Target Cells Not Reportable 01/16/18 03:21 Tear Drop Cells Not Reportable 01/16/18 03:21 Ovalocytes Not Reportable 01/16/18 03:21 Helmet Cells Not Reportable 01/16/18 03:21 [place] Bodies Not Reportable 01/16/18 03:21 [place] Rings Not Reportable 01/16/18 03:21 [place] Cells Not Reportable 01/16/18 03:21 Bite Cells Not Reportable 01/16/18 03:21 Crenated Cell Not Reportable 01/16/18 03:21 Elliptocytes Not Reportable 01/16/18 03:21 Acanthocytes (Spur) Not Reportable 01/16/18 03:21 Rouleaux Not Reportable 01/16/18 03:21 Hemoglobin C Crystals Not Reportable 01/16/18 03:21 Schistocytes Not Reportable 01/16/18 03:21 Malaria parasites Not Reportable 01/16/18 03:21 Miguel Bodies Not Reportable 01/16/18 03:21 Hem Pathologist Commnt No 01/16/18 03:21 Sodium 141 mmol/L (137-145) 01/20/18 03:52 Potassium 4.2 mmol/L (3.6-5.0) 01/20/18 03:52 Chloride 110.0 mmol/L (98-107) H 01/20/18 03:52 Carbon Dioxide 15 mmol/L (22-30) L 01/20/18 03:52 Anion Gap 20 mmol/L 01/20/18 03:52 BUN 2 mg/dL (9-20) L 01/20/18 03:52 Creatinine 0.6 mg/dL (0.8-1.5) L 01/20/18 03:52 Estimated GFR > 60 ml/min 01/20/18 03:52 BUN/Creatinine Ratio 3 % 01/20/18 03:52 Glucose 64 mg/dL (75-100) L 01/20/18 03:52 Calcium 8.8 mg/dL (8.4-10.2) 01/20/18 03:52 Total Bilirubin 0.20 mg/dL (0.1-1.2) 01/16/18 03:21 AST 42 units/L (5-40) H 01/16/18 03:21 ALT 57 units/L (7-56) H 01/16/18 03:21 Alkaline Phosphatase 87 units/L (35-129) 01/16/18 03:21 Total Protein 6.7 g/dL (6.3-8.2) 01/16/18 03:21 Albumin 4.0 g/dL (3.9-5) 01/16/18 03:21 Albumin/Globulin Ratio 1.5 % 01/16/18 03:21 Lipase 18 units/L (13-60) 01/16/18 03:21 Urine Color Yellow (Yellow) 01/16/18 03:50 Urine Turbidity Clear (Clear) 01/16/18 03:50 Urine pH 5.0 (5.0-7.0) 01/16/18 03:50 Ur Specific [place] 1.032 (1.003-1.030) H 01/16/18 03:50 Urine Protein 30 mg/dl mg/dL (Negative) 01/16/18 03:50 Urine Glucose (UA) Neg mg/dL (Negative) 01/16/18 03:50 Urine Ketones Neg mg/dL (Negative) 01/16/18 03:50 Urine Blood Neg (Negative) 01/16/18 03:50 Urine Nitrite Neg (Negative) 01/16/18 03:50 Urine Bilirubin Neg (Negative) 01/16/18 03:50 Urine Urobilinogen 4.0 mg/dL (<2.0) 01/16/18 03:50 Ur Leukocyte Esterase Neg (Negative) 01/16/18 03:50 Urine WBC (Auto) 2.0 /HPF (0.0-6.0) 01/16/18 03:50 Urine RBC (Auto) 1.0 /HPF (0.0-6.0) 01/16/18 03:50 Urine Bacteria (Auto) 1+ /HPF (Negative) 01/16/18 03:50 Hyaline Casts 1 /LPF 01/16/18 03:50 Urine Mucus 1+ /HPF 01/16/18 03:50
[2018-01-20] MEDS: VITAMIN B-6 PO SCH (11:49)
[2018-01-20] MEDS: NACL 0.9% 1000 ML 1,000 ML IV SCH (12:12)
[2018-01-20] MEDS: CLEOCIN PO SCH ×2 (15:12→23:44)
[2018-01-20] MEDS: PEPCID PO SCH (23:46)
[2018-01-21] MEDS: COLACE PO SCH ×2 (00:07→10:14)
--- NOTE | 2018-01-21 08:29 | Discharge Summary ---
Providers - Providers Date of Admission: 01/16/18 06:32 Date of discharge: 01/21/18 Attending physician: JUAN LIM 01/16/18 06:32 Consult to Physician [CONS] Routine Comment: Consulting Provider: JANAE KOEHLER Physician Instructions: ifeoma Reason For Exam: sz 01/16/18 13:09 Consult to Case Management [CONS] Routine Services Needed at Discharge: Other Notified:: COPY GIVEN TO Additional Physician Instructions: This 28 year old male has a severe seizure disorder, blindness and cognitive decline. Mother, who is his bird tender, would like to see if she can get him into the [facility] system for seizure clinic there. She is unhappy with the care she is getting now. 01/19/18 13:57 Consult to Physician [CONS] Routine Comment: Consulting Provider: ORACIO GARCIA Physician Instructions: Reason For Exam: aspiration pneumonia, seizure 01/20/18 12:42 Speech Therapy Evaluation and Treat [CONS] Routine Reason For Exam: swallow eval Primary care physician: WHEELMAN Hospitalization Condition: Stable Hospital course: 27 year old male with history of retinitis pigmentosa, legally blind, seizure disorder was brought to the emergency room by his mother because he had 4 seizures at home. In the emergency room he had another seizure, he was loaded with Keppra, Ativan and admitted to the floor. Patient was noted to have leukocytosis and chest x-ray showed right lower lobe infiltrate. Admitted for the management of aspiration pneumonia. Patient was postictal on admission and is not able to take PO. Patient was seen by infectious disease and started on IV aztreonam and vancomycin. Neurology saw the patient in consultation. ID later switched the antibiotics to clindamycin by mouth to be continued until 01/21. Patient had no further seizure activity. Patient is felt to have received maximal hospital benefit and will be discharged home. Disposition: DC-01 TO HOME OR SELFCARE Time spent for discharge: 32 - Discharge Diagnoses (1) Pneumonia Status: Acute (2) Status epilepticus Status: Acute (3) Nausea & vomiting Status: Acute Core Measure Documentation - Palliative Care Palliative Care/ Comfort Measures: Not Applicable - Core Measures Any of the following diagnoses?: none Exam - Constitutional Vitals: Temp Pulse Resp BP Pulse Ox 98.1 F 80 18 127/71 100 01/21/18 05:47 01/21/18 05:47 01/21/18 05:47 01/21/18 05:47 01/21/18 05:47 General appearance: Present: no acute distress, well-nourished - EENT Eyes: Present: PERRL ENT: hearing intact, clear oral mucosa - Neck Neck: Present: supple, normal ROM - Respiratory Respiratory effort: normal Respiratory: bilateral: CTA - Cardiovascular Heart Sounds: Present: S1 & S2. Absent: rub, click - Extremities Extremities: pulses symmetrical, No edema Peripheral Pulses: within normal limits - Abdominal General gastrointestinal: Present: soft, non-tender, non-distended, normal bowel sounds Male genitourinary: Present: normal - Integumentary Integumentary: Present: clear, warm, dry - Musculoskeletal Musculoskeletal: gait normal, strength equal bilaterally - Psychiatric Psychiatric: appropriate mood/affect, intact judgment & insight - Neurologic Neurologic: CNII-XII intact, moves all extremities Plan Activity: advance as tolerated Weight Bearing Status: Weight Bear as Tolerated Diet: regular Follow up with: PRIMARY CARE, [Primary Care Provider] - 3-5 Days Prescriptions: Cholecalciferol Vit D3 [Vitamin D3] 1,000 unit PO BID #60 tablet Clindamycin [Clindamycin CAP] 450 mg PO TID #9 capsule Docusate Sodium [Colace CAP] 100 mg PO BID #30 capsule Famotidine [Pepcid] 20 mg PO BID #60 tablet Lacosamide [Vimpat] 200 mg FEEDTUBE BID #60 tablet lamoTRIgine [LaMICtal] 300 mg FEEDTUBE BID #60 tablet levETIRAcetam [Keppra TAB] 1,000 mg PO BID #60 tablet Promethazine [Phenergan SUPPOS] 25 mg ME Q6H PRN #20 supp.rect PRN Reason: Nausea And Vomiting Pyridoxine [Vitamin B-6] 100 mg PO QDAY #30 tablet Topiramate [Topamax] 150 mg PO BID #60 tablet traZODone [Desyrel] 100 mg PO QHS #30 tablet
[2018-01-21] MEDS: NACL 0.9% 1000 ML 1,000 ML IV SCH (08:31)
[2018-01-21] MEDS: CLEOCIN PO SCH ×2 (10:12→17:05)
[2018-01-21] MEDS: PEPCID PO SCH (10:12)
[2018-01-21] MEDS: KEPPRA PO SCH (10:12)
[2018-01-21] MEDS: VIMPAT FEEDTUBE SCH (10:13)
[2018-01-21] MEDS: HEPARIN SUB-Q SCH (10:13)
[2018-01-21] MEDS: TOPAMAX PO SCH (10:13)
[2018-01-21] MEDS: LaMICtal FEEDTUBE SCH (10:14)
[2018-01-21] MEDS: VITAMIN B-6 PO SCH (10:15)
[2018-01-21] MEDS: SODIUM CHLORIDE FLUSH SYRINGE 10 ML IV SCH (10:17)
[2018-01-21] MEDS: VITAMIN D3 PO SCH (10:18)
[2018-01-21] MEDS: ATIVAN IV PRN (17:06)
[2018-01-21 18:47] VITALS: BP 125/74
== END 2018-01-21 18:10 | disposition home or self-care (01) | DRG 871 ==
LOC: ED 02:28 → SUATTDRO 02:28 → 3A 06:32
PROVIDERS: ADMIT Internal Medicine; ATTEND Hospitalist
DX: A41.9 Sepsis, unspecified organism (principal); J69.0 Pneumonitis due to inhalation of food and vomit; F03.90 Unspecified dementia, unspecified severity, without behavioral disturbance, psychotic disturbance, mood disturbance, and anxiety; H54.8 Legal blindness, as defined in USA; G40.411 Other generalized epilepsy and epileptic syndromes, intractable, with status epilepticus; H35.52 Pigmentary retinal dystrophy; Z88.0 Allergy status to penicillin; Z91.013 Allergy to seafood; Z86.73 Personal history of transient ischemic attack (TIA), and cerebral infarction without residual deficits; Z82.49 Family history of ischemic heart disease and other diseases of the circulatory system; Z87.440 Personal history of urinary (tract) infections; Z79.899 Other long term (current) drug therapy
CPT/HCPCS: 36415; 70450; 71045; 80048; 80053; 80175; 80177; 80201; 81001; 83690; 85007; 85025; 87086; 93005; 93010; 96361; 96365; 96367; 96375; C9254; J0456; J0696; J1644; J1650; J1953; J1956; J2060; J3370; J7030; J7040; J7050

== ENCOUNTER 2018-08-18 02:29 | Inpatient (IN) | payer MEDICAID ==
[2018-08-18] MEDS ORDERED: NACL 0.9% 1000 ML 1,000 ML IV ONE (02:59)
[2018-08-18] MEDS ORDERED: KEPPRA 1,000 MG/NS 0.75% 100ML 1,000 MG/100 ML BAG IV ONE (02:59)
[2018-08-18] MEDS ORDERED: ATIVAN IV ONE (03:01)
[2018-08-18 03:04] LABS: Hematocrit 49.4 % (35.5-45.6); Hemoglobin 16.6 gm/dl (11.8-15.2); Mean Corpuscular HGB Conc 34 % (32-34); Mean Corpuscular Volume 93 fl (84-94); Platelet Count 388 K/mm3 (140-440); Red Cell Distribution Width 12.9 % (13.2-15.2)
--- NOTE | 2018-08-18 03:05 | Emergency Department Report ---
ED Seizure HPI - General Chief Complaint: Seizure Stated Complaint: SEZURAS Time Seen by Provider: 08/18/18 02:45 Source: family, EMS Mode of arrival: Stretcher Limitations: Altered Mental Status, Physical Limitation - History of Present Illness Initial Comments: 28-year-old male with history of "brain disease" according to mother, blindness, seizures presents to ED with multiple seizures tonight. Mother states patient has had 4 seizures at home since 7:30 PM. He is compliant with his medications. She states last seizure was 4 months ago. Mom reports seizures lasting approximately 2 minutes or less. Patient currently postictal. Mother states at baseline patient is nonambulatory, somewhat able to feed himself however and requires her help, states that he will converse and was saying yes or no to questions and can state his name. MD Complaint: seizure -: Last night Description of Episode: loss of consciousness -: minutes(s) (2) Witnessed:: Yes Trauma: No Seizure History: known seizure disorder, compliant with medication Place: home Possible Precipitating Event: none - Related Data Home Medications Medication Instructions Recorded Confirmed Last Taken lamoTRIgine [LaMICtal] 300 mg PO BID 10/27/16 08/18/18 Unknown Lacosamide [Vimpat] 200 mg PO BID 01/01/18 08/18/18 Unknown Previous Rx's Medication Instructions Recorded Last Taken Type LORazepam [Ativan] 1 mg PO BID PRN #6 tab 01/06/18 Unknown Rx Famotidine [Pepcid] 20 mg PO BID #60 tablet 01/21/18 Unknown Rx LORazepam [Ativan] 1 mg PO BID #10 tab 01/21/18 Unknown Rx levETIRAcetam [Keppra TAB] 1,000 mg PO BID #60 tablet 01/21/18 Unknown Rx Allergies Allergy/AdvReac Type Severity Reaction Status Date / Time Penicillins Allergy Angioedema Verified 01/01/18 13:03 shellfish derived Allergy Swelling Verified 01/01/18 13:03 ED Review of Systems ROS: Stated complaint: SEZURAS Other details as noted in HPI Comment: All other systems reviewed and negative Constitutional: denies: fever Respiratory: denies: cough Gastrointestinal: denies: vomiting Neurological: other (reports seizure activity) ED Past Medical Hx - Past Medical History Previous Medical History?: Yes Hx Hypertension: No Hx CVA: Yes (2013) Hx Congestive Heart Failure: No Hx Diabetes: No Hx Deep Vein Thrombosis: No Hx Pulmonary Embolism: No Hx Seizures: Yes Hx Asthma: No Hx COPD: No Hx Tuberculosis: No Hx Dementia: Yes Hx HIV: No Additional medical history: blind, 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, 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 - Surgical History Past Surgical History?: Yes Hx Pacemaker: No Hx Internal Defibrillator: No Additional Surgical History: Vagal nerve stimulator - Social History Smoking Status: Never Smoker Substance Use Type: Prescribed - Medications Home Medications: Home Medications Medication Instructions Recorded Confirmed Last Taken Type lamoTRIgine [LaMICtal] 300 mg PO BID 10/27/16 08/18/18 Unknown History Lacosamide [Vimpat] 200 mg PO BID 01/01/18 08/18/18 Unknown History LORazepam [Ativan] 1 mg PO BID PRN #6 tab 01/06/18 08/18/18 Unknown Rx Famotidine [Pepcid] 20 mg PO BID #60 tablet 01/21/18 08/18/18 Unknown Rx LORazepam [Ativan] 1 mg PO BID #10 tab 01/21/18 08/18/18 Unknown Rx levETIRAcetam [Keppra TAB] 1,000 mg PO BID #60 tablet 01/21/18 08/18/18 Unknown Rx ED Physical Exam - General Limitations: Altered Mental Status, Physical Limitation General appearance: lethargic - Head Head exam: Present: atraumatic, normocephalic - Eye Eye exam: Present: normal appearance, other (dilated pupils) - ENT ENT exam: Present: mucous membranes moist - Neck Neck exam: Present: normal inspection - Respiratory Respiratory exam: Present: normal lung sounds bilaterally. Absent: respiratory distress - Cardiovascular Cardiovascular Exam: Present: normal rhythm, tachycardia - GI/Abdominal GI/Abdominal exam: Present: soft. Absent: distended - Extremities Exam Extremities exam: Present: normal inspection - Neurological Exam Neurological exam: Present: altered - Skin Skin exam: Present: warm, dry, intact, normal color ED Course Vital Signs 08/18/18 08/18/18 08/18/18 03:02 03:16 04:02 Temperature 98.3 F 98.3 F Pulse Rate 110 H 110 H 105 H Respiratory 30 H 30 H 25 H Rate Blood Pressure 144/70 Blood Pressure 144/70 144/70 [Left] O2 Sat by Pulse 100 100 Oximetry ED Medical Decision Making - Lab Data Result diagrams: 08/18/18 02:50 08/18/18 02:50 - Radiology Data Radiology results: report reviewed, image reviewed - Medical Decision Making 28-year-old male status epilepticus. Patient given an 1000 mg bolus of Ke[address]ra. CT head negative chest x-ray negative. She is more responsive than when he initially arrived, moving around on the bed, however he is still nonverbal. WBCs elevated at 20, patient is tachycardic. This is likely due to his seizures, and patient is afebrile. However will obtain blood and urine cultures and cover for possible infection with dose of IV Levaquin. Spoke w/ hospitalist, Dr Kim, for admission. - Differential Diagnosis status epilepticus, electrolyte abnormality, intracranial abnormality, infe Critical Care Time: Yes Critical care time in (mins) excluding proc time.: 30 Critical care attestation.: If time is entered above; I have spent that time in minutes in the direct care of this critically ill patient, excluding procedure time. Critical Care Time: 30 minutes ED Disposition Clinical Impression: Status epilepticus Disposition: -09 OP ADMIT IP TO THIS HOSP Is pt being admited?: Yes Condition: Stable Referrals: YORDY VALDES MD [Primary Care Provider] - 3-5 Days Time of Disposition: 04:35
[2018-08-18 03:18] LABS: BUN/Creatinine Ratio 14; Blood Urea Nitrogen 13 mg/dL (9-20); Calcium 9.3 mg/dL (8.4-10.2); Hemolysis Index 20
--- NOTE | 2018-08-18 03:19 | XRay Report ---
PROCEDURE: XR CHEST 1V AP TECHNIQUE: A portable semierect view of the chest was submitted. HISTORY: ams COMPARISONS: None FINDINGS: The heart size and mediastinum appear normal. The lungs are clear. Pleural fluid is not seen. There i s a pacemaker device along the left chest wall with the leads directed into the left side of the neck . IMPRESSION: No acute cardiopulmonary process.. This document is electronically signed by Keanu Dinh MD., August 18 2018 03:17:19 AM ET
--- NOTE | 2018-08-18 04:18 | Cat Scan Report ---
PROCEDURE: CT HEAD/BRAIN WO CON TECHNIQUE: CT imaging is obtained through the brain without contrast HISTORY: ams, seizurres COMPARISONS: None available FINDINGS: There is cerebellar atrophy and enlargement of the fourth ventricle. The ventricles, cisterns and sul ci are otherwise within normal limits. No intra parenchymal or extra-axial mass, hemorrhage, or mass effect. Asymmetric enlargement of the left parahippocampal gyrus is suggested. Joshi and white-matter differentiation is within normal limits. Normal spherical shape of the globes. No significant abnormality within the imaged paranasal sinuses or mastoid air cells. No skull or facial fracture visualized. IMPRESSION: No acute intracranial abnormality identified. Cerebellar atrophy may be related to long-standing use of seizure medication versus alcoholism, among other etiologies. Asymmetric prominence of the left parahippocampal gyrus may also be related to patient's seizures. Co rrelation with prior or new MRI is requested. This document is electronically signed by James Mariee MD., August 18 2018 04:16:50 AM ET
[2018-08-18] MEDS ORDERED: LEVAQUIN 750MG/150ML 750 MG/150 ML BAG IV ONE (04:22)
[2018-08-18] MEDS ORDERED: TYLENOL PO PRN ×2 (05:51→05:56)
[2018-08-18] MEDS ORDERED: SODIUM CHLORIDE FLUSH SYRINGE 10 ML IV PRN ×2 (05:51→05:56)
[2018-08-18] MEDS ORDERED: MILK OF MAGNESIA PO PRN (05:56)
[2018-08-18] MEDS ORDERED: PROVENTIL IH PRN (05:56)
[2018-08-18] MEDS ORDERED: NORCO 5/325 PO PRN (05:56)
[2018-08-18] MEDS ORDERED: REGLAN IV PRN (05:56)
[2018-08-18] MEDS ORDERED: ZOFRAN IV PRN (05:56)
[2018-08-18 06:06] LABS: Bilirubin,Urine NEG (Negative); Blood,Urine NEG (Negative); Color,Urine Yellow (Yellow); Protein,Urine <15 mg/dL mg/dL (Negative); Urobilinogen,Urine < 2.0 mg/dL (<2.0)
--- NOTE | 2018-08-18 06:28 | History and Physical Report ---
History of Present Illness Date of examination: 08/18/18 Date of admission: 08/18/18 Chief complaint: status epilepticus History of present illness: Pt is a 28 year old male with PMHx pf retinitis pigmentosa, legally blind, frequent seizure disorder, newly diagnosed brain degenerative disease, urinary incontinence, impair mobility who was brought to the ER by EMS for c/o seizure activity. The medical history was provided by pt's mother who states that he was at home listening to a video when the seizure suddenly started, it lasted about 2 mins. Pt's mom reports that he had a total of 3 seizures by the time EMS arrived. Pt's mother states that the pt last seizure activity was in June, she reports that pt was recently diagnosed with a degenerative brain disease, he is incontinent of urine, he had stopped walking since November last year. She denies any acute illness, denies cough, denies any pain. Pt was started on IV Keppra, Ativan PRN with seizure activity, neurology was consulted and admitted for further evaluation. Past History Past Medical History: CAD (Left ventricular hypertrophy), seizures, other (retinitis pigmentosa) Social history: other (lives with mother, disable) Medications and Allergies Allergies Allergy/AdvReac Type Severity Reaction Status Date / Time Penicillins Allergy Angioedema Verified 01/01/18 13:03 shellfish derived Allergy Swelling Verified 01/01/18 13:03 Home Medications Medication Instructions Recorded Confirmed Last Taken Type lamoTRIgine [LaMICtal] 300 mg PO BID 10/27/16 08/18/18 Unknown History Lacosamide [Vimpat] 200 mg PO BID 01/01/18 08/18/18 Unknown History LORazepam [Ativan] 1 mg PO BID PRN #6 tab 01/06/18 08/18/18 Unknown Rx Famotidine [Pepcid] 20 mg PO BID #60 tablet 01/21/18 08/18/18 Unknown Rx LORazepam [Ativan] 1 mg PO BID #10 tab 01/21/18 08/18/18 Unknown Rx levETIRAcetam [Keppra TAB] 1,000 mg PO BID #60 tablet 01/21/18 08/18/18 Unknown Rx Active Meds: Active Medications Acetaminophen (Tylenol) 650 mg PO Q4H PRN PRN Reason: Pain MILD(1-3)/Fever >100.5/ALCARAZ Acetaminophen (Tylenol) 650 mg PO Q4H PRN PRN Reason: Pain MILD(1-3)/Fever >100.5/ALCARAZ Acetaminophen/Hydrocodone Bitart ([place] 5/325) 2 each PO Q6H PRN PRN Reason: Pain, Moderate (4-6) Albuterol (Proventil) 2.5 mg IH Q3HRT PRN PRN Reason: Shortness Of Breath Albuterol/Ipratropium (Duoneb *Not For Prn Use*) 1 ampul IH Q6HRT SILVANA Sodium Chloride (Nacl 0.9% 1000 Ml) 1,000 mls @ 125 mls/hr IV DIRECT SILVANA Magnesium Hydroxide (Milk Of Magnesia) 30 ml PO Q4H PRN PRN Reason: Constipation Metoclopramide HCl (Reglan) 10 mg IV Q6H PRN PRN Reason: Nausea And Vomiting Ondansetron HCl (Zofran) 4 mg IV Q8H PRN PRN Reason: Nausea And Vomiting Ondansetron HCl (Zofran) 4 mg IV Q8H PRN PRN Reason: Nausea And Vomiting Senna (Senokot) 8.6 mg PO Q12HR SILVANA Sodium Chloride (Sodium Chloride Flush Syringe 10 Ml) 10 ml IV BID SILVANA Sodium Chloride (Sodium Chloride Flush Syringe 10 Ml) 10 ml IV PRN PRN PRN Reason: LINE FLUSH Sodium Chloride (Sodium Chloride Flush Syringe 10 Ml) 10 ml IV BID SILVANA Sodium Chloride (Sodium Chloride Flush Syringe 10 Ml) 10 ml IV PRN PRN PRN Reason: LINE FLUSH Exam - Constitutional Vitals: Temp Pulse Resp BP Pulse Ox 98.3 F 113 H 31 H 129/66 100 08/18/18 03:16 08/18/18 05:00 08/18/18 05:00 08/18/18 05:00 08/18/18 05:00 General appearance: Present: mild distress, obese - EENT Eyes: Present: EOM intact - Neck Neck: Present: supple - Respiratory Respiratory: bilateral: diminished, wheezing - Cardiovascular Heart Sounds: Present: S1 & S2 - Extremities Extremities: No edema, Full ROM - Abdominal General gastrointestinal: Present: non-tender, non-distended Male genitourinary: Present: deferred - Musculoskeletal Musculoskeletal: generalized weakness, other (non-verbal unable to assess) Results - Labs CBC & Chem 7: 08/18/18 02:50 08/18/18 02:50 Labs: Laboratory Last Values WBC 22.4 K/mm3 (4.5-11.0) H 08/18/18 02:50 RBC 5.30 M/mm3 (3.65-5.03) H 08/18/18 02:50 Hgb 16.6 gm/dl (11.8-15.2) H 08/18/18 02:50 Hct 49.4 % (35.5-45.6) H 08/18/18 02:50 MCV 93 fl (84-94) 08/18/18 02:50 MCH 31 pg (28-32) 08/18/18 02:50 MCHC 34 % (32-34) 08/18/18 02:50 RDW 12.9 % (13.2-15.2) L 08/18/18 02:50 Plt Count 388 K/mm3 (140-440) 08/18/18 02:50 Sodium 144 mmol/L (137-145) 08/18/18 02:50 Potassium 4.3 mmol/L (3.6-5.0) 08/18/18 02:50 Chloride 108.5 mmol/L (98-107) H 08/18/18 02:50 Carbon Dioxide 18 mmol/L (22-30) L 08/18/18 02:50 Anion Gap 22 mmol/L 08/18/18 02:50 BUN 13 mg/dL (9-20) 08/18/18 02:50 Creatinine 0.9 mg/dL (0.8-1.5) 08/18/18 02:50 Estimated GFR > 60 ml/min 08/18/18 02:50 BUN/Creatinine Ratio 14 % 08/18/18 02:50 Glucose 165 mg/dL (75-100) H 08/18/18 02:50 POC Glucose 135 (70-105) H 08/18/18 03:00 Lactic Acid 2.60 mmol/L (0.7-2.0) H* 08/18/18 04:58 Calcium 9.3 mg/dL (8.4-10.2) 08/18/18 02:50 Urine Bilirubin Neg (Negative) 08/18/18 05:58 Urine RBC (Auto) 1.0 /HPF (0.0-6.0) 08/18/18 05:58 Assessment and Plan Assessment and plan: 1. Retinitis pigmentosa 2. Recurrent seizure 3. Leukocytosis 4. Erythrocytosis 5. Hyperglycemia 6. Urinary incontinence 7. Impair mobility Plan: Admit to med/surg Ativan PRN for seizure Keppra IV for acute seizure Consult neurology Aspiration precaution Bedside Swallow study Resume home meds when able to take PO Advance Directives: Yes VTE prophylaxis?: Chemical Plan of care discussed with patient/family: Yes
[2018-08-18] MEDS: DUONEB *Not for PRN Use IH SCH ×2 (08:43→19:38)
[2018-08-18] MEDS ORDERED: SODIUM CHLORIDE FLUSH SYRINGE 10 ML IV SCH (10:00)
[2018-08-18] MEDS: SENOKOT PO SCH ×2 (10:13→23:01)
[2018-08-18] MEDS: SODIUM CHLORIDE FLUSH SYRINGE 10 ML IV SCH ×2 (10:13→23:01)
--- NOTE | 2018-08-18 11:02 | Progress Note ---
Assessment and Plan Assessment and plan: Seizure disorder. Status epilepticus. Continue IV Keppra and Ativan when necessary. Neurology consultation pending. Retinitis pigmentosa. Patient is legally blind. SIRS. Patient with leukocytosis associated with tachycardia/tachypnea. However, no obvious signs of infection. Chest x-ray and urinalysis are negative. Continue to monitor closely. Impaired mobility/debility. History Interval history: Pt is a 28 year old male with PMHx pf retinitis pigmentosa, legally blind, frequent seizure disorder, newly diagnosed brain degenerative disease, urinary incontinence, impair mobility who was brought to the ER by EMS for c/o seizure activity. The medical history was provided by pt's mother who states that he was at home listening to a video when the seizure suddenly started, it lasted about 2 mins. Pt's mom reports that he had a total of 3 seizures by the time EMS arrived. Hospitalist Physical - Constitutional Vitals: Temp Pulse Resp BP Pulse Ox 99.1 F 100 H 15 122/67 97 08/18/18 09:11 08/18/18 09:11 08/18/18 09:11 08/18/18 09:11 08/18/18 09:11 General appearance: Present: no acute distress, obese - EENT Eyes: Present: PERRL, EOM intact ENT: hearing intact, clear oral mucosa, dentition normal - Neck Neck: Present: supple, normal ROM - Respiratory Respiratory effort: normal Respiratory: bilateral: CTA - Cardiovascular Rhythm: regular Heart Sounds: Present: S1 & S2. Absent: gallop, rub - Extremities Extremities: no ischemia, No edema, Full ROM - Abdominal General gastrointestinal: soft, non-tender, non-distended, normal bowel sounds - Integumentary Integumentary: Present: clear, warm, dry - Neurologic Neurologic: CNII-XII intact, moves all extremities Results - Labs CBC & Chem 7: 08/18/18 02:50 08/18/18 02:50 Labs: Laboratory Last Values WBC 22.4 K/mm3 (4.5-11.0) H 08/18/18 02:50 RBC 5.30 M/mm3 (3.65-5.03) H 08/18/18 02:50 Hgb 16.6 gm/dl (11.8-15.2) H 08/18/18 02:50 Hct 49.4 % (35.5-45.6) H 08/18/18 02:50 MCV 93 fl (84-94) 08/18/18 02:50 MCH 31 pg (28-32) 08/18/18 02:50 MCHC 34 % (32-34) 08/18/18 02:50 RDW 12.9 % (13.2-15.2) L 08/18/18 02:50 Plt Count 388 K/mm3 (140-440) 08/18/18 02:50 Sodium 144 mmol/L (137-145) 08/18/18 02:50 Potassium 4.3 mmol/L (3.6-5.0) 08/18/18 02:50 Chloride 108.5 mmol/L (98-107) H 08/18/18 02:50 Carbon Dioxide 18 mmol/L (22-30) L 08/18/18 02:50 Anion Gap 22 mmol/L 08/18/18 02:50 BUN 13 mg/dL (9-20) 08/18/18 02:50 Creatinine 0.9 mg/dL (0.8-1.5) 08/18/18 02:50 Estimated GFR > 60 ml/min 08/18/18 02:50 BUN/Creatinine Ratio 14 % 08/18/18 02:50 Glucose 165 mg/dL (75-100) H 08/18/18 02:50 POC Glucose 135 (70-105) H 08/18/18 03:00 Lactic Acid 2.80 mmol/L (0.7-2.0) H* 08/18/18 06:05 Calcium 9.3 mg/dL (8.4-10.2) 08/18/18 02:50 Urine Color Yellow (Yellow) 08/18/18 05:58 Urine Turbidity Clear (Clear) 08/18/18 05:58 Urine pH 7.0 (5.0-7.0) 08/18/18 05:58 Ur Specific Thompson 1.021 (1.003-1.030) 08/18/18 05:58 Urine Protein <15 mg/dl mg/dL (Negative) 08/18/18 05:58 Urine Glucose (UA) Neg mg/dL (Negative) 08/18/18 05:58 Urine Ketones Neg mg/dL (Negative) 08/18/18 05:58 Urine Blood Neg (Negative) 08/18/18 05:58 Urine Nitrite Neg (Negative) 08/18/18 05:58 Urine Bilirubin Neg (Negative) 08/18/18 05:58 Urine Urobilinogen < 2.0 mg/dL (<2.0) 08/18/18 05:58 Ur Leukocyte Esterase Neg (Negative) 08/18/18 05:58 Urine WBC (Auto) 1.0 /HPF (0.0-6.0) 08/18/18 05:58 Urine RBC (Auto) 1.0 /HPF (0.0-6.0) 08/18/18 05:58
--- NOTE | 2018-08-18 12:00 | Progress Note ---
Subjective Date of service: 08/18/18 Interval history: ED notes reviewed ent over the labs and EEG is pending will revoew outside hx and make further comments Thanks will follow up Objective - Vital Sign Vital Signs - 12hr 08/18/18 08/18/18 08/18/18 03:02 03:16 04:02 Temperature 98.3 F 98.3 F Pulse Rate 110 H 110 H 105 H Respiratory 30 H 30 H 25 H Rate Blood Pressure 144/70 Blood Pressure 144/70 144/70 [Left] O2 Sat by Pulse 100 100 Oximetry 08/18/18 08/18/18 08/18/18 05:00 06:00 07:00 Temperature Pulse Rate 113 H 99 H 109 H Respiratory 31 H 30 H 34 H Rate Blood Pressure 129/66 124/63 120/75 Blood Pressure [Left] O2 Sat by Pulse 100 97 99 Oximetry 08/18/18 08/18/18 08/18/18 08:00 08:20 09:11 Temperature 99.1 F Pulse Rate 101 H 107 H 100 H Respiratory 32 H 30 H 15 Rate Blood Pressure 135/60 135/60 122/67 Blood Pressure [Left] O2 Sat by Pulse 97 98 97 Oximetry - Laboratory Findings CBC and BMP: 08/18/18 02:50 08/18/18 02:50 Abnormal Lab Findings: Abnormal Labs 08/18/18 08/18/18 08/18/18 02:50 02:50 03:00 WBC 22.4 H RBC 5.30 H Hgb 16.6 H Hct 49.4 H RDW 12.9 L Chloride 108.5 H Carbon Dioxide 18 L Glucose 165 H POC Glucose 135 H Lactic Acid 08/18/18 08/18/18 08/18/18 04:58 06:05 10:14 WBC RBC Hgb Hct RDW Chloride Carbon Dioxide Glucose POC Glucose Lactic Acid 2.60 H* 2.80 H* 2.40 H*
[2018-08-18] MEDS: NACL 0.9% 1000 ML 1,000 ML IV SCH (18:56)
[2018-08-18] MEDS ORDERED: ATIVAN ONE (19:29)
[2018-08-18] MEDS ORDERED: ATIVAN IV STA ×2 (19:30→19:32)
[2018-08-18] MEDS ORDERED: KEPPRA 500 MG in NACL 0.9% 100 ML IV STA (19:31)
[2018-08-18 21:40] LABS: Creatine Kinase MB 9.9 ng/mL (0.0-4.0)
[2018-08-18] MEDS ORDERED: KEPPRA 750 MG in NACL 0.9% 100 ML IV SCH (22:00)
[2018-08-18] MEDS ORDERED: NON-FORMULARY (Lacosamide [Vimpat] 200 MG) PO SCH (22:00)
[2018-08-18] MEDS ORDERED: LAMOTRIGINE 300 MG PO SCH (22:00)
[2018-08-18] MEDS: PEPCID IV SCH (22:21)
[2018-08-18] MEDS: KEPPRA 750 MG in NACL 0.9% 100 ML IV SCH (22:21)
[2018-08-18] MEDS: VIMPAT PO SCH (22:24)
[2018-08-18] MEDS: LaMICtal PO SCH (22:24)
[2018-08-19 08:53] LABS: BUN/Creatinine Ratio 16; Blood Urea Nitrogen 11 mg/dL (9-20); Calcium 9.3 mg/dL (8.4-10.2); Hemolysis Index 2
[2018-08-19] MEDS: KEPPRA 750 MG in NACL 0.9% 100 ML IV SCH ×2 (09:51→22:09)
[2018-08-19] MEDS: NACL 0.9% 1000 ML 1,000 ML IV SCH ×2 (09:51→18:41)
[2018-08-19] MEDS: SODIUM CHLORIDE FLUSH SYRINGE 10 ML IV SCH ×2 (09:53→22:17)
--- NOTE | 2018-08-19 10:58 | Progress Note ---
Assessment and Plan Assessment and plan: Seizure disorder. No new seizure activity. Continue IV Keppra and Ativan when necessary. Neurology following. EEG is pending. Retinitis pigmentosa. Patient is legally blind. SIRS without organ dysfunction. Patient with leukocytosis associated with tachycardia/tachypnea. However, no obvious signs of infection. Chest x-ray and urinalysis are negative. Continue to monitor closely. Impaired mobility/debility. History Interval history: Pt is a 28 year old male with PMHx pf retinitis pigmentosa, legally blind, frequent seizure disorder, newly diagnosed brain degenerative disease, urinary incontinence, impair mobility who was brought to the ER by EMS for c/o seizure activity. The medical history was provided by pt's mother who states that he was at home listening to a video when the seizure suddenly started, it lasted about 2 mins. Pt's mom reports that he had a total of 3 seizures by the time EMS arrived. Hospitalist Physical - Constitutional Vitals: Temp Pulse Resp BP Pulse Ox 98.6 F 94 H 18 116/63 99 08/18/18 23:27 08/18/18 23:27 08/18/18 23:27 08/18/18 23:27 08/18/18 23:27 General appearance: Present: no acute distress, obese - EENT Eyes: Present: PERRL, EOM intact ENT: hearing intact, clear oral mucosa, dentition normal - Neck Neck: Present: supple, normal ROM - Respiratory Respiratory effort: normal Respiratory: bilateral: CTA - Cardiovascular Rhythm: regular Heart Sounds: Present: S1 & S2. Absent: gallop, rub - Extremities Extremities: no ischemia, No edema, Full ROM - Abdominal General gastrointestinal: soft, non-tender, non-distended, normal bowel sounds - Integumentary Integumentary: Present: clear, warm, dry - Neurologic Neurologic: CNII-XII intact, moves all extremities Results - Labs CBC & Chem 7: 08/18/18 02:50 08/19/18 05:10 Labs: Laboratory Last Values WBC 22.4 K/mm3 (4.5-11.0) H 08/18/18 02:50 RBC 5.30 M/mm3 (3.65-5.03) H 08/18/18 02:50 Hgb 16.6 gm/dl (11.8-15.2) H 08/18/18 02:50 Hct 49.4 % (35.5-45.6) H 08/18/18 02:50 MCV 93 fl (84-94) 08/18/18 02:50 MCH 31 pg (28-32) 08/18/18 02:50 MCHC 34 % (32-34) 08/18/18 02:50 RDW 12.9 % (13.2-15.2) L 08/18/18 02:50 Plt Count 388 K/mm3 (140-440) 08/18/18 02:50 Sodium 142 mmol/L (137-145) 08/19/18 05:10 Potassium 3.9 mmol/L (3.6-5.0) 08/19/18 05:10 Chloride 107.7 mmol/L (98-107) H 08/19/18 05:10 Carbon Dioxide 20 mmol/L (22-30) L 08/19/18 05:10 Anion Gap 18 mmol/L 08/19/18 05:10 BUN 11 mg/dL (9-20) 08/19/18 05:10 Creatinine 0.7 mg/dL (0.8-1.5) L 08/19/18 05:10 Estimated GFR > 60 ml/min 08/19/18 05:10 BUN/Creatinine Ratio 16 % 08/19/18 05:10 Glucose 101 mg/dL (75-100) H 08/19/18 05:10 POC Glucose 135 (70-105) H 08/18/18 03:00 Lactic Acid 0.80 mmol/L (0.7-2.0) 08/18/18 21:05 Calcium 9.3 mg/dL (8.4-10.2) 08/19/18 05:10 Total Creatine Kinase 187 units/L (55-170) H 08/18/18 21:13 CK-MB (CK-2) 9.9 ng/mL (0.0-4.0) H 08/18/18 21:13 CK-MB (CK-2) Rel Index 5.2 (0-4) H 08/18/18 21:13 Urine Color Yellow (Yellow) 08/18/18 05:58 Urine Turbidity Clear (Clear) 08/18/18 05:58 Urine pH 7.0 (5.0-7.0) 08/18/18 05:58 Ur Specific [place] 1.021 (1.003-1.030) 08/18/18 05:58 Urine Protein <15 mg/dl mg/dL (Negative) 08/18/18 05:58 Urine Glucose (UA) Neg mg/dL (Negative) 08/18/18 05:58 Urine Ketones Neg mg/dL (Negative) 08/18/18 05:58 Urine Blood Neg (Negative) 08/18/18 05:58 Urine Nitrite Neg (Negative) 08/18/18 05:58 Urine Bilirubin Neg (Negative) 08/18/18 05:58 Urine Urobilinogen < 2.0 mg/dL (<2.0) 08/18/18 05:58 Ur Leukocyte Esterase Neg (Negative) 08/18/18 05:58 Urine WBC (Auto) 1.0 /HPF (0.0-6.0) 08/18/18 05:58 Urine RBC (Auto) 1.0 /HPF (0.0-6.0) 08/18/18 05:58
[2018-08-19] MEDS ORDERED: AFLURIA QUAD 2018-2019 SYRINGE IM ONE (12:00)
[2018-08-19] MEDS ORDERED: PNEUMOVAX 23 IM ONE (12:00)
[2018-08-19] MEDS: PEPCID IV SCH ×2 (13:00→22:00)
[2018-08-19] MEDS: LaMICtal PO SCH ×2 (13:00→22:03)
[2018-08-19] MEDS: SENOKOT PO SCH ×2 (13:00→22:03)
[2018-08-19] MEDS: VIMPAT PO SCH ×2 (13:00→22:02)
--- NOTE | 2018-08-19 21:31 | Consultation ---
HISTORY OF PRESENT ILLNESS: The patient is a 28-year-old white male who is admitted to room #327. I do not have much history on him. He presented to the Emergency Room in status seizures and there is no past medical history that is available at this point. No family members are present in the room. He has been restarted on antiepileptic medication, which will be continued until I have a chance to ____ family. I do not have any past history that indicates that he has status epilepticus in the past. There is no past documentation of his prior admissions to [facility]. PHYSICAL EXAMINATION: Shows him to be semi-arousable, moves all extremities well. He has no recurrent seizure activities. Ocular movements are full. Pupils briskly reactive to light. Cranial nerves are intact. He moves all extremities well, does not have any evidence of craniocervical trauma, no fractures, contusions or abrasions noted about the head, neck or face. IMPRESSION: History of status epilepticus. He according to prior history had been on seizure medicines. I am not quite sure of the etiology of his seizures and will withhold making comments until I have a more objective database to discuss potential etiologies. I have reviewed imaging studies and the radiologist comments on atrophy of the hippocampus, reviewing the report that is evident as well as some cerebellar atrophy, which there are variety of etiologies for this and potentially developmental. Until I have further comments, will withhold any other conclusions. I will review an EEG and monitor medications he is taking. JOB# [id number] GHANSHYAM/VALENTIN
[2018-08-20] MEDS: NACL 0.9% 1000 ML 1,000 ML IV SCH (03:37)
[2018-08-20] MEDS: VIMPAT PO SCH ×2 (09:08→21:51)
[2018-08-20] MEDS: LaMICtal PO SCH ×2 (09:08→21:51)
[2018-08-20] MEDS: SENOKOT PO SCH ×2 (09:08→21:51)
[2018-08-20] MEDS: SODIUM CHLORIDE FLUSH SYRINGE 10 ML IV SCH ×2 (09:09→21:51)
[2018-08-20] MEDS: PEPCID IV SCH ×2 (09:09→21:51)
[2018-08-20] MEDS: KEPPRA 750 MG in NACL 0.9% 100 ML IV SCH (09:40)
--- NOTE | 2018-08-20 10:32 | Progress Note ---
Assessment and Plan Assessment and plan: Acute encephalopathy. Check MRI brain. F/U EEG Seizure disorder. No new seizure activity. Continue IV Keppra and Ativan when necessary. Neurology following. EEG is pending. Retinitis pigmentosa. Patient is legally blind. SIRS without organ dysfunction. Patient with leukocytosis associated with tachycardia/tachypnea. However, no obvious signs of infection. Chest x-ray and urinalysis are negative. Continue to monitor closely. Impaired mobility/debility. History Interval history: Pt is a 28 year old male with PMHx pf retinitis pigmentosa, legally blind, frequent seizure disorder, newly diagnosed brain degenerative disease, urinary incontinence, impair mobility who was brought to the ER by EMS for c/o seizure activity. The medical history was provided by pt's mother who states that he was at home listening to a video when the seizure suddenly started, it lasted about 2 mins. Pt's mom reports that he had a total of 3 seizures by the time EMS arrived. Mother reports patient with unclear or incomprehensible speech. No evidence of dysarthria. Hospitalist Physical - Constitutional Vitals: Temp Pulse Resp BP Pulse Ox 99.6 F 91 H 20 151/92 98 08/20/18 05:08 08/20/18 05:08 08/20/18 05:08 08/20/18 05:08 08/20/18 05:08 General appearance: Present: no acute distress, obese - EENT Eyes: Present: PERRL, EOM intact ENT: hearing intact, clear oral mucosa, dentition normal - Neck Neck: Present: supple, normal ROM - Respiratory Respiratory effort: normal Respiratory: bilateral: CTA - Cardiovascular Rhythm: regular Heart Sounds: Present: S1 & S2. Absent: gallop, rub - Extremities Extremities: no ischemia, No edema, Full ROM - Abdominal General gastrointestinal: soft, non-tender, non-distended, normal bowel sounds - Integumentary Integumentary: Present: clear, warm, dry - Neurologic Neurologic: CNII-XII intact, moves all extremities Results - Labs CBC & Chem 7: 08/18/18 02:50 08/19/18 05:10 Labs: Laboratory Last Values WBC 22.4 K/mm3 (4.5-11.0) H 08/18/18 02:50 RBC 5.30 M/mm3 (3.65-5.03) H 08/18/18 02:50 Hgb 16.6 gm/dl (11.8-15.2) H 08/18/18 02:50 Hct 49.4 % (35.5-45.6) H 08/18/18 02:50 MCV 93 fl (84-94) 08/18/18 02:50 MCH 31 pg (28-32) 08/18/18 02:50 MCHC 34 % (32-34) 08/18/18 02:50 RDW 12.9 % (13.2-15.2) L 08/18/18 02:50 Plt Count 388 K/mm3 (140-440) 08/18/18 02:50 Sodium 142 mmol/L (137-145) 08/19/18 05:10 Potassium 3.9 mmol/L (3.6-5.0) 08/19/18 05:10 Chloride 107.7 mmol/L (98-107) H 08/19/18 05:10 Carbon Dioxide 20 mmol/L (22-30) L 08/19/18 05:10 Anion Gap 18 mmol/L 08/19/18 05:10 BUN 11 mg/dL (9-20) 08/19/18 05:10 Creatinine 0.7 mg/dL (0.8-1.5) L 08/19/18 05:10 Estimated GFR > 60 ml/min 08/19/18 05:10 BUN/Creatinine Ratio 16 % 08/19/18 05:10 Glucose 101 mg/dL (75-100) H 08/19/18 05:10 POC Glucose 87 (70-105) 08/19/18 15:58 Lactic Acid 0.80 mmol/L (0.7-2.0) 08/18/18 21:05 Calcium 9.3 mg/dL (8.4-10.2) 08/19/18 05:10 Total Creatine Kinase 187 units/L (55-170) H 08/18/18 21:13 CK-MB (CK-2) 9.9 ng/mL (0.0-4.0) H 08/18/18 21:13 CK-MB (CK-2) Rel Index 5.2 (0-4) H 08/18/18 21:13 Urine Color Yellow (Yellow) 08/18/18 05:58 Urine Turbidity Clear (Clear) 08/18/18 05:58 Urine pH 7.0 (5.0-7.0) 08/18/18 05:58 Ur Specific [place] 1.021 (1.003-1.030) 08/18/18 05:58 Urine Protein <15 mg/dl mg/dL (Negative) 08/18/18 05:58 Urine Glucose (UA) Neg mg/dL (Negative) 08/18/18 05:58 Urine Ketones Neg mg/dL (Negative) 08/18/18 05:58 Urine Blood Neg (Negative) 08/18/18 05:58 Urine Nitrite Neg (Negative) 08/18/18 05:58 Urine Bilirubin Neg (Negative) 08/18/18 05:58 Urine Urobilinogen < 2.0 mg/dL (<2.0) 08/18/18 05:58 Ur Leukocyte Esterase Neg (Negative) 08/18/18 05:58 Urine WBC (Auto) 1.0 /HPF (0.0-6.0) 08/18/18 05:58 Urine RBC (Auto) 1.0 /HPF (0.0-6.0) 08/18/18 05:58
[2018-08-20] MEDS: ZOFRAN IV PRN (13:04)
[2018-08-20] MEDS: ATIVAN IV PRN (13:10)
--- NOTE | 2018-08-20 16:47 | Progress Note ---
Subjective Date of service: 08/20/18 Interval history: OK to switch to po keppra since seizures are controlled Thanks Objective - Vital Sign Vital Signs - 12hr 08/20/18 08/20/18 08/20/18 05:08 11:52 13:07 Temperature 99.6 F 99.3 F Pulse Rate 91 H Respiratory 20 18 Rate Blood Pressure 151/92 148/92 O2 Sat by Pulse 98 96 Oximetry - Laboratory Findings CBC and BMP: 08/18/18 02:50 08/19/18 05:10 Abnormal Lab Findings: Abnormal Labs 08/18/18 08/18/18 08/18/18 02:50 02:50 03:00 WBC 22.4 H RBC 5.30 H Hgb 16.6 H Hct 49.4 H RDW 12.9 L Chloride 108.5 H Carbon Dioxide 18 L Creatinine Glucose 165 H POC Glucose 135 H Lactic Acid Total Creatine Kinase CK-MB (CK-2) CK-MB (CK-2) Rel Index 08/18/18 08/18/18 08/18/18 04:58 06:05 10:14 WBC RBC Hgb Hct RDW Chloride Carbon Dioxide Creatinine Glucose POC Glucose Lactic Acid 2.60 H* 2.80 H* 2.40 H* Total Creatine Kinase CK-MB (CK-2) CK-MB (CK-2) Rel Index 08/18/18 08/18/18 08/19/18 19:39 21:13 05:10 WBC RBC Hgb Hct RDW Chloride 107.7 H Carbon Dioxide 20 L Creatinine 0.7 L Glucose 101 H POC Glucose Lactic Acid 5.10 H* Total Creatine Kinase 187 H CK-MB (CK-2) 9.9 H CK-MB (CK-2) Rel Index 5.2 H
[2018-08-20] MEDS ORDERED: NACL 0.9% IV ONE (20:00)
[2018-08-20] MEDS ORDERED: KEPPRA IV ONE (20:00)
[2018-08-21] MEDS: NACL 0.9% 1000 ML 1,000 ML IV SCH ×2 (00:53→09:31)
--- NOTE | 2018-08-21 08:25 | Progress Note ---
Subjective Date of service: 08/21/18 Interval history: nurses called me last evening to report brief seizure did give 250 mg dose of keppra as supplement... the EEG did not reveal any severe seizure activity will continue medication monitoring thanks Objective - Vital Sign Vital Signs - 12hr 08/20/18 08/20/18 08/21/18 20:50 22:52 05:08 Temperature 98.8 F 98.2 F Pulse Rate 85 90 Respiratory 18 20 Rate Blood Pressure 139/78 126/76 O2 Sat by Pulse 96 96 98 Oximetry - Laboratory Findings CBC and BMP: 08/18/18 02:50 08/19/18 05:10 Abnormal Lab Findings: Abnormal Labs 08/18/18 08/18/18 08/18/18 02:50 02:50 03:00 WBC 22.4 H RBC 5.30 H Hgb 16.6 H Hct 49.4 H RDW 12.9 L Chloride 108.5 H Carbon Dioxide 18 L Creatinine Glucose 165 H POC Glucose 135 H Lactic Acid Total Creatine Kinase CK-MB (CK-2) CK-MB (CK-2) Rel Index 08/18/18 08/18/18 08/18/18 04:58 06:05 10:14 WBC RBC Hgb Hct RDW Chloride Carbon Dioxide Creatinine Glucose POC Glucose Lactic Acid 2.60 H* 2.80 H* 2.40 H* Total Creatine Kinase CK-MB (CK-2) CK-MB (CK-2) Rel Index 08/18/18 08/18/18 08/19/18 19:39 21:13 05:10 WBC RBC Hgb Hct RDW Chloride 107.7 H Carbon Dioxide 20 L Creatinine 0.7 L Glucose 101 H POC Glucose Lactic Acid 5.10 H* Total Creatine Kinase 187 H CK-MB (CK-2) 9.9 H CK-MB (CK-2) Rel Index 5.2 H
[2018-08-21] MEDS: LaMICtal PO SCH ×2 (09:33→23:11)
[2018-08-21] MEDS: PEPCID IV SCH ×2 (09:34→23:12)
[2018-08-21] MEDS: VIMPAT PO SCH ×2 (09:34→23:10)
[2018-08-21] MEDS: SENOKOT PO SCH ×2 (09:34→23:11)
[2018-08-21] MEDS: SODIUM CHLORIDE FLUSH SYRINGE 10 ML IV SCH ×2 (09:41→23:12)
--- NOTE | 2018-08-21 10:07 | Progress Note ---
Assessment and Plan Assessment and plan: Acute encephalopathy. Check MRI brain. Seizure disorder. Neurology reports brief seizure on the evening of 08/20/18. Continue IV Keppra and Ativan when necessary. Neurology following. EEG revealed no seizure activity. Retinitis pigmentosa. Patient is legally blind. SIRS without organ dysfunction. Patient with leukocytosis associated with tachycardia/tachypnea. However, no obvious signs of infection. Chest x-ray and urinalysis are negative. Continue to monitor closely. Impaired mobility/debility. History Interval history: Pt is a 28 year old male with PMHx pf retinitis pigmentosa, legally blind, frequent seizure disorder, newly diagnosed brain degenerative disease, urinary incontinence, impair mobility who was brought to the ER by EMS for c/o seizure activity. The medical history was provided by pt's mother who states that he was at home listening to a video when the seizure suddenly started, it lasted about 2 mins. Pt's mom reports that he had a total of 3 seizures by the time EMS arrived. The patient received Keppra throughout hospitalization with no seizure activity. Neurology reports on the evening of 08/20/17 patient did have a brief seizure. Medications were adjusted by neurology. Mother also reports patiented with unclear or incomprehensible speech that has resolved. Hospitalist Physical - Constitutional Vitals: Temp Pulse Resp BP Pulse Ox 98.2 F 90 20 126/76 98 08/21/18 05:08 08/21/18 05:08 08/21/18 05:08 08/21/18 05:08 08/21/18 05:08 General appearance: Present: no acute distress, obese - EENT Eyes: Present: PERRL, EOM intact ENT: hearing intact, clear oral mucosa, dentition normal - Neck Neck: Present: supple, normal ROM - Respiratory Respiratory effort: normal Respiratory: bilateral: CTA - Cardiovascular Rhythm: regular Heart Sounds: Present: S1 & S2. Absent: gallop, rub - Extremities Extremities: no ischemia, No edema, Full ROM - Abdominal General gastrointestinal: soft, non-tender, non-distended, normal bowel sounds - Integumentary Integumentary: Present: clear, warm, dry - Neurologic Neurologic: CNII-XII intact, moves all extremities Results - Labs CBC & Chem 7: 08/18/18 02:50 08/19/18 05:10 Labs: Laboratory Last Values WBC 22.4 K/mm3 (4.5-11.0) H 08/18/18 02:50 RBC 5.30 M/mm3 (3.65-5.03) H 08/18/18 02:50 Hgb 16.6 gm/dl (11.8-15.2) H 08/18/18 02:50 Hct 49.4 % (35.5-45.6) H 08/18/18 02:50 MCV 93 fl (84-94) 08/18/18 02:50 MCH 31 pg (28-32) 08/18/18 02:50 MCHC 34 % (32-34) 08/18/18 02:50 RDW 12.9 % (13.2-15.2) L 08/18/18 02:50 Plt Count 388 K/mm3 (140-440) 08/18/18 02:50 Sodium 142 mmol/L (137-145) 08/19/18 05:10 Potassium 3.9 mmol/L (3.6-5.0) 08/19/18 05:10 Chloride 107.7 mmol/L (98-107) H 08/19/18 05:10 Carbon Dioxide 20 mmol/L (22-30) L 08/19/18 05:10 Anion Gap 18 mmol/L 08/19/18 05:10 BUN 11 mg/dL (9-20) 08/19/18 05:10 Creatinine 0.7 mg/dL (0.8-1.5) L 08/19/18 05:10 Estimated GFR > 60 ml/min 08/19/18 05:10 BUN/Creatinine Ratio 16 % 08/19/18 05:10 Glucose 101 mg/dL (75-100) H 08/19/18 05:10 POC Glucose 87 (70-105) 08/19/18 15:58 Lactic Acid 0.80 mmol/L (0.7-2.0) 08/18/18 21:05 Calcium 9.3 mg/dL (8.4-10.2) 08/19/18 05:10 Total Creatine Kinase 187 units/L (55-170) H 08/18/18 21:13 CK-MB (CK-2) 9.9 ng/mL (0.0-4.0) H 08/18/18 21:13 CK-MB (CK-2) Rel Index 5.2 (0-4) H 08/18/18 21:13 Urine Color Yellow (Yellow) 08/18/18 05:58 Urine Turbidity Clear (Clear) 08/18/18 05:58 Urine pH 7.0 (5.0-7.0) 08/18/18 05:58 Ur Specific [place] 1.021 (1.003-1.030) 08/18/18 05:58 Urine Protein <15 mg/dl mg/dL (Negative) 08/18/18 05:58 Urine Glucose (UA) Neg mg/dL (Negative) 08/18/18 05:58 Urine Ketones Neg mg/dL (Negative) 08/18/18 05:58 Urine Blood Neg (Negative) 08/18/18 05:58 Urine Nitrite Neg (Negative) 08/18/18 05:58 Urine Bilirubin Neg (Negative) 08/18/18 05:58 Urine Urobilinogen < 2.0 mg/dL (<2.0) 08/18/18 05:58 Ur Leukocyte Esterase Neg (Negative) 08/18/18 05:58 Urine WBC (Auto) 1.0 /HPF (0.0-6.0) 08/18/18 05:58 Urine RBC (Auto) 1.0 /HPF (0.0-6.0) 08/18/18 05:58
--- NOTE | 2018-08-21 13:15 | Progress Note ---
Subjective Date of service: 08/21/18 Interval history: spoke to the mother and went over all meds and rc's went over issue of Romeo putting in VNS stimulator and it has never worked properly Objective - Vital Sign Vital Signs - 12hr 08/21/18 08/21/18 05:08 11:50 Temperature 98.2 F 98.0 F Pulse Rate 90 86 Respiratory 20 16 Rate Blood Pressure 126/76 130/72 O2 Sat by Pulse 98 96 Oximetry - Laboratory Findings CBC and BMP: 08/18/18 02:50 08/19/18 05:10 Abnormal Lab Findings: Abnormal Labs 08/18/18 08/18/18 08/18/18 02:50 02:50 03:00 WBC 22.4 H RBC 5.30 H Hgb 16.6 H Hct 49.4 H RDW 12.9 L Chloride 108.5 H Carbon Dioxide 18 L Creatinine Glucose 165 H POC Glucose 135 H Lactic Acid Total Creatine Kinase CK-MB (CK-2) CK-MB (CK-2) Rel Index 08/18/18 08/18/18 08/18/18 04:58 06:05 10:14 WBC RBC Hgb Hct RDW Chloride Carbon Dioxide Creatinine Glucose POC Glucose Lactic Acid 2.60 H* 2.80 H* 2.40 H* Total Creatine Kinase CK-MB (CK-2) CK-MB (CK-2) Rel Index 08/18/18 08/18/18 08/19/18 19:39 21:13 05:10 WBC RBC Hgb Hct RDW Chloride 107.7 H Carbon Dioxide 20 L Creatinine 0.7 L Glucose 101 H POC Glucose Lactic Acid 5.10 H* Total Creatine Kinase 187 H CK-MB (CK-2) 9.9 H CK-MB (CK-2) Rel Index 5.2 H
[2018-08-21] MEDS: ZOFRAN IV PRN (15:02)
--- NOTE | 2018-08-21 17:26 | Cat Scan Report ---
PROCEDURE: CT HEAD/BRAIN WO CON TECHNIQUE: Computerized tomography of the head was performed without contrast material. Coronal and s agittal reformatted images were provided. CT DOSE LENGTH PRODUCT: 928.78 mGy-cm. HISTORY: seizure activity COMPARISONS: CT head August 18, 2018. 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 Previously reported asymmetrical prominence of the left perihippocampal gyrus is not clearly evident on the CT scan. There is no evidence for acute ischemia. There is no hemorrhage. There is no midline shift. There is no hydrocephalus. There is no mass. Age appropriate aguiar-white matter attenuation is noted. There is no calvarial fracture. The temporal bones demonstrate aerated mastoid air cells. The middle ears appear unremarkable. Paranasal sinuses are unremarkable. Globes are intact. IMPRESSION: * No acute intracranial findings. 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 This document is electronically signed by Ramo Patterson MD., August 21 2018 05:24:00 PM ET
[2018-08-21] MEDS: ATIVAN IV PRN (23:16)
[2018-08-21] MEDS: TOPAMAX PO SCH (23:16)
[2018-08-22] MEDS: NACL 0.9% 1000 ML 1,000 ML IV SCH (05:45)
[2018-08-22] MEDS: TOPAMAX PO SCH ×2 (10:00→22:11)
[2018-08-22] MEDS: VIMPAT PO SCH ×2 (10:00→22:11)
[2018-08-22] MEDS: LaMICtal PO SCH ×2 (10:01→22:11)
[2018-08-22] MEDS: SENOKOT PO SCH ×2 (10:01→22:08)
[2018-08-22] MEDS: PEPCID IV SCH ×2 (10:01→22:08)
[2018-08-22] MEDS: SODIUM CHLORIDE FLUSH SYRINGE 10 ML IV SCH ×2 (10:02→22:09)
--- NOTE | 2018-08-22 10:12 | Discharge Summary ---
Providers - Providers Date of Admission: 08/18/18 05:51 Date of discharge: 08/23/18 Attending physician: JUAN LIM 08/18/18 05:56 Consult to Physician [CONS] Routine Comment: Consulting Provider: TANG MONDRAGON Physician Instructions: Reason For Exam: seizure disorder 08/19/18 10:01 Speech Therapy Evaluation and Treat [CONS] Stat Reason For Exam: s/p seizure Primary care physician: YORDY VALDES Hospitalization Reason for admission: sz Condition: Stable Hospital course: Pt is a 28 year old male with PMHx pf retinitis pigmentosa, legally blind, frequent seizure disorder, newly diagnosed brain degenerative disease, urinary incontinence, impair mobility who was brought to the ER by EMS for c/o seizure activity. The medical history was provided by pt's mother who states that he was at home listening to a video when the seizure suddenly started, it lasted about 2 mins. Pt's mom reports that he had a total of 3 seizures by the time EMS arrived. The patient received Keppra throughout hospitalization with no seizure activity. However, Neurology reports on the evening of 08/20/17 patient did have a brief seizure. Medications were adjusted by neurology. Mother also reports patient with unclear or incomprehensible speech that has resolved. The patient has remained seizure free and is felt to have received maximal hospital benefit for discharge. Patient had an elevated lactic acid on admission but checks x- ray, Blood and urine cultures were found to be negative. The patient was awaiting discharge but had transportation issues and did not leave until the following day. On that evening, patient had a seizure. Patient's Keppra dose was increased for the home medication. Neurology saw the patient prior to discharge and felt the patient was okay to discharge. Patient will be discharged today. Dedicated discharge time 32 minutes. Disposition: DC-01 TO HOME OR SELFCARE Time spent for discharge: 32 - Discharge Diagnoses (1) Status epilepticus Status: Acute (2) Nausea & vomiting Status: Acute Core Measure Documentation - Palliative Care Palliative Care/ Comfort Measures: Not Applicable - Core Measures Any of the following diagnoses?: none Exam - Constitutional Vitals: Temp Pulse Resp BP Pulse Ox 97.5 F L 92 H 20 131/79 95 08/22/18 04:41 08/22/18 04:41 08/22/18 04:41 08/22/18 04:41 08/22/18 04:41 General appearance: Present: no acute distress, well-nourished - EENT Eyes: Present: PERRL ENT: hearing intact, clear oral mucosa - Neck Neck: Present: supple, normal ROM - Respiratory Respiratory effort: normal Respiratory: bilateral: CTA - Cardiovascular Heart Sounds: Present: S1 & S2. Absent: rub, click - Extremities Extremities: pulses symmetrical, No edema Peripheral Pulses: within normal limits - Abdominal General gastrointestinal: Present: soft, non-tender, non-distended, normal bowel sounds Male genitourinary: Present: normal - Integumentary Integumentary: Present: clear, warm, dry - Musculoskeletal Musculoskeletal: gait normal, strength equal bilaterally - Psychiatric Psychiatric: appropriate mood/affect, intact judgment & insight - Neurologic Neurologic: CNII-XII intact, moves all extremities Plan Activity: advance as tolerated Weight Bearing Status: Weight Bear as Tolerated Diet: regular Follow up with: YORDY VALDES MD [Primary Care Provider] - 3-5 Days TANG MONDRAGON MD [Staff Physician] - 7 Days Prescriptions: LORazepam [Ativan] 1 mg PO BID #30 tablet levETIRAcetam [Keppra] 1,500 mg PO BID #50 tablet levETIRAcetam [Keppra TAB] 750 mg PO BID #60 tablet lamoTRIgine [LaMICtal] 300 mg PO BID #60 tablet Famotidine [Pepcid] 20 mg PO BID #60 tablet Topiramate [Topamax] 100 mg PO Q12HR #60 tablet Lacosamide [Vimpat] 200 mg PO Q12HR #60 tablet
--- NOTE | 2018-08-22 11:42 | Progress Note ---
Subjective Date of service: 08/22/18 Interval history: agree with discharge patient will not be sezizure free with VNS stimulator [place] manages the VNS stimulator and mother advised to contact them daniel and madi to be continued I have seen no additional seizures Objective - Vital Sign Vital Signs - 12hr 08/22/18 04:41 Temperature 97.5 F L Pulse Rate 92 H Respiratory 20 Rate Blood Pressure 131/79 O2 Sat by Pulse 95 Oximetry - Laboratory Findings CBC and BMP: 08/18/18 02:50 08/19/18 05:10 Abnormal Lab Findings: Abnormal Labs 08/18/18 08/18/18 08/18/18 02:50 02:50 03:00 WBC 22.4 H RBC 5.30 H Hgb 16.6 H Hct 49.4 H RDW 12.9 L Chloride 108.5 H Carbon Dioxide 18 L Creatinine Glucose 165 H POC Glucose 135 H Lactic Acid Total Creatine Kinase CK-MB (CK-2) CK-MB (CK-2) Rel Index 08/18/18 08/18/18 08/18/18 04:58 06:05 10:14 WBC RBC Hgb Hct RDW Chloride Carbon Dioxide Creatinine Glucose POC Glucose Lactic Acid 2.60 H* 2.80 H* 2.40 H* Total Creatine Kinase CK-MB (CK-2) CK-MB (CK-2) Rel Index 08/18/18 08/18/18 08/19/18 19:39 21:13 05:10 WBC RBC Hgb Hct RDW Chloride 107.7 H Carbon Dioxide 20 L Creatinine 0.7 L Glucose 101 H POC Glucose Lactic Acid 5.10 H* Total Creatine Kinase 187 H CK-MB (CK-2) 9.9 H CK-MB (CK-2) Rel Index 5.2 H
[2018-08-22] MEDS: ATIVAN IV PRN (12:41)
--- NOTE | 2018-08-22 20:34 | Consultation ---
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 What we know is, he has been under the care of the doctors at [facility]. He has been on numerous antiepileptic medications of Topamax, Lamictal, developed status seizures while on these medications. He well has a VNS stimulator which is not acting effectively per the mother's history. The mother states that he has been on many medication regimens, although I noticed the medicines he currently is taking Topamax and Lamictal are not at all effective. He began having jerking motor seizures typical for Yeso-Gastaut. On my examination at this point, he is fully alert, speaks minimally. 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 At this point, he may be discharged. I recommend Keppra 750 b.i.d. The mother inquired as to whether he can get Ativan gel, I am not familiar as to how this could be formulated, ____ Pharmacy. She should check with the pharmacy to see if this is a reasonable option. The doctors at the [facility] may provide her information about this or the [facility] [place] might also have some contact. I attempted to review this off the Internet and could not find a reasonable source of a purely Ativan gel. I noted that the rectal Valium is not at this point available. I have heard that some rectal preparation for Ativan was available, but I could not adequately research this issue. We will follow up in the office. JOB# [id number] GHANSHYAM/VALENTIN
[2018-08-23] MEDS: ATIVAN IV PRN (05:25)
[2018-08-23 06:55] VITALS: BP 138/86
--- NOTE | 2018-08-23 10:09 | Progress Note ---
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 manager Objective - Vital Sign Vital Signs - 12hr 08/22/18 08/23/18 22:55 06:12 Temperature 98.7 F 98.8 F Pulse Rate 80 106 H Respiratory 20 20 Rate Blood Pressure 149/83 138/86 O2 Sat by Pulse 98 95 Oximetry - Laboratory Findings CBC and BMP: 08/18/18 02:50 08/19/18 05:10 Abnormal Lab Findings: Abnormal Labs 08/18/18 08/18/18 08/18/18 02:50 02:50 03:00 WBC 22.4 H RBC 5.30 H Hgb 16.6 H Hct 49.4 H RDW 12.9 L Chloride 108.5 H Carbon Dioxide 18 L Creatinine Glucose 165 H POC Glucose 135 H Lactic Acid Total Creatine Kinase CK-MB (CK-2) CK-MB (CK-2) Rel Index 08/18/18 08/18/18 08/18/18 04:58 06:05 10:14 WBC RBC Hgb Hct RDW Chloride Carbon Dioxide Creatinine Glucose POC Glucose Lactic Acid 2.60 H* 2.80 H* 2.40 H* Total Creatine Kinase CK-MB (CK-2) CK-MB (CK-2) Rel Index 08/18/18 08/18/18 08/19/18 19:39 21:13 05:10 WBC RBC Hgb Hct RDW Chloride 107.7 H Carbon Dioxide 20 L Creatinine 0.7 L Glucose 101 H POC Glucose Lactic Acid 5.10 H* Total Creatine Kinase 187 H CK-MB (CK-2) 9.9 H CK-MB (CK-2) Rel Index 5.2 H
--- NOTE | 2018-08-23 11:08 | Progress Note ---
Assessment and Plan Assessment and plan: Acute encephalopathy. Check MRI brain. Seizure disorder. Neurology reports brief seizure on the evening of 08/20/18. Continue IV Keppra and Ativan when necessary. Neurology following. EEG revealed no seizure activity. Retinitis pigmentosa. Patient is legally blind. SIRS without organ dysfunction. Patient with leukocytosis associated with tachycardia/tachypnea. However, no obvious signs of infection. Chest x-ray and urinalysis are negative. Continue to monitor closely. Impaired mobility/debility. - Patient Problems (1) Status epilepticus Current Visit: Yes Status: Acute (2) Nausea & vomiting Current Visit: No Status: Acute History Interval history: No new issues overnight. Hospitalist Physical - Constitutional Vitals: Temp Pulse Resp BP Pulse Ox 98.8 F 106 H 20 138/86 95 08/23/18 06:12 08/23/18 06:12 08/23/18 06:12 08/23/18 06:12 08/23/18 06:12 General appearance: Present: no acute distress, well-nourished - EENT Eyes: Present: PERRL, EOM intact ENT: hearing intact, clear oral mucosa, dentition normal - Neck Neck: Present: supple, normal ROM - Respiratory Respiratory effort: normal Respiratory: bilateral: CTA - Cardiovascular Rhythm: regular Heart Sounds: Present: S1 & S2. Absent: gallop, rub - Extremities Extremities: no ischemia, No edema, Full ROM - Abdominal General gastrointestinal: soft, non-tender, non-distended, normal bowel sounds - Integumentary Integumentary: Present: clear, warm, dry - Neurologic Neurologic: CNII-XII intact, moves all extremities Results - Labs CBC & Chem 7: 08/18/18 02:50 08/19/18 05:10 Labs: Laboratory Last Values WBC 22.4 K/mm3 (4.5-11.0) H 08/18/18 02:50 RBC 5.30 M/mm3 (3.65-5.03) H 08/18/18 02:50 Hgb 16.6 gm/dl (11.8-15.2) H 08/18/18 02:50 Hct 49.4 % (35.5-45.6) H 08/18/18 02:50 MCV 93 fl (84-94) 08/18/18 02:50 MCH 31 pg (28-32) 08/18/18 02:50 MCHC 34 % (32-34) 08/18/18 02:50 RDW 12.9 % (13.2-15.2) L 08/18/18 02:50 Plt Count 388 K/mm3 (140-440) 08/18/18 02:50 Sodium 142 mmol/L (137-145) 08/19/18 05:10 Potassium 3.9 mmol/L (3.6-5.0) 08/19/18 05:10 Chloride 107.7 mmol/L (98-107) H 08/19/18 05:10 Carbon Dioxide 20 mmol/L (22-30) L 08/19/18 05:10 Anion Gap 18 mmol/L 08/19/18 05:10 BUN 11 mg/dL (9-20) 08/19/18 05:10 Creatinine 0.7 mg/dL (0.8-1.5) L 08/19/18 05:10 Estimated GFR > 60 ml/min 08/19/18 05:10 BUN/Creatinine Ratio 16 % 08/19/18 05:10 Glucose 101 mg/dL (75-100) H 08/19/18 05:10 POC Glucose 87 (70-105) 08/19/18 15:58 Lactic Acid 0.80 mmol/L (0.7-2.0) 08/18/18 21:05 Calcium 9.3 mg/dL (8.4-10.2) 08/19/18 05:10 Total Creatine Kinase 187 units/L (55-170) H 08/18/18 21:13 CK-MB (CK-2) 9.9 ng/mL (0.0-4.0) H 08/18/18 21:13 CK-MB (CK-2) Rel Index 5.2 (0-4) H 08/18/18 21:13 Urine Color Yellow (Yellow) 08/18/18 05:58 Urine Turbidity Clear (Clear) 08/18/18 05:58 Urine pH 7.0 (5.0-7.0) 08/18/18 05:58 Ur Specific [place] 1.021 (1.003-1.030) 08/18/18 05:58 Urine Protein <15 mg/dl mg/dL (Negative) 08/18/18 05:58 Urine Glucose (UA) Neg mg/dL (Negative) 08/18/18 05:58 Urine Ketones Neg mg/dL (Negative) 08/18/18 05:58 Urine Blood Neg (Negative) 08/18/18 05:58 Urine Nitrite Neg (Negative) 08/18/18 05:58 Urine Bilirubin Neg (Negative) 08/18/18 05:58 Urine Urobilinogen < 2.0 mg/dL (<2.0) 08/18/18 05:58 Ur Leukocyte Esterase Neg (Negative) 08/18/18 05:58 Urine WBC (Auto) 1.0 /HPF (0.0-6.0) 08/18/18 05:58 Urine RBC (Auto) 1.0 /HPF (0.0-6.0) 08/18/18 05:58
== END 2018-08-23 11:00 | disposition home or self-care (01) | DRG 100 ==
LOC: ED 02:29 → SUATTDRO 02:29 → 3A 05:51
PROVIDERS: ADMIT Internal Medicine; ATTEND Hospitalist
PROC: 3E0234Z Introduction of Serum, Toxoid and Vaccine into Muscle, Percutaneous Approach (ICD-10-PCS; principal; 2018-08-19)
DX: G40.901 Epilepsy, unspecified, not intractable, with status epilepticus (principal); G93.40 Encephalopathy, unspecified; H35.52 Pigmentary retinal dystrophy; R65.10 Systemic inflammatory response syndrome (SIRS) of non-infectious origin without acute organ dysfunction; R32 Unspecified urinary incontinence; H54.8 Legal blindness, as defined in USA; I25.10 Atherosclerotic heart disease of native coronary artery without angina pectoris; F03.90 Unspecified dementia, unspecified severity, without behavioral disturbance, psychotic disturbance, mood disturbance, and anxiety; Z88.0 Allergy status to penicillin; Z91.013 Allergy to seafood; Z23 Encounter for immunization; Z86.73 Personal history of transient ischemic attack (TIA), and cerebral infarction without residual deficits
CPT/HCPCS: 36415; 70450; 71045; 80048; 81001; 82140; 82550; 82553; 82962; 85027; 87040; 87086; 90686; 90732; 94760; 95819; G0378; J1953; J1956; J2060; J2405; J7030

== ENCOUNTER 2018-10-09 14:40 | Inpatient (IN) | payer MEDICAID ==
[2018-10-09] MEDS ORDERED: ARTIFICIAL TEARS OPHTH OINT OU PRN (14:49)
[2018-10-09] MEDS ORDERED: VASELINE LIP THERAPY TP PRN (14:49)
[2018-10-09] MEDS ORDERED: ATIVAN ONE (14:50)
[2018-10-09] MEDS ORDERED: NACL 0.9% 500 ML 1,000 ML IV ONE (15:05)
[2018-10-09] MEDS ORDERED: KEPPRA 1,000 MG/NS 0.75% 100ML 1,000 MG/100 ML BAG IV ONE ×2 (15:05→15:09)
[2018-10-09] MEDS ORDERED: NORMODYNE IV ONE (15:09)
[2018-10-09] MEDS ORDERED: NACL 0.9% 1000 ML 1,000 ML ONE (15:12)
[2018-10-09] MEDS: ATIVAN IV PRN ×3 (15:14→17:45)
[2018-10-09] MEDS: ATIVAN 100 MG in NACL 0.9% 50 ML, VIAFLEX EMPTY CONTAINER 0 ML IV SCH (15:20)
--- NOTE | 2018-10-09 15:27 | Emergency Department Report ---
ED General Adult HPI - General Stated complaint: SEIZURES Time Seen by Provider: 10/09/18 15:02 - History of Present Illness Initial comments: This is a 28-year-old male that presents to the emergency department with a febrile illness, recurrent seizures and impending respiratory failure. He presents via EMS. He was found to have a sugar over 100 in the field. He's had several witnessed seizures. He is here with his mother who is a poor historian. She states that she was here with him in the hospital for recurrent seizures about a month ago. She describes him as bedridden but verbal. He has been blind since . She states he has a "degenerative brain disorder". He has had a fever at least for 24 hours. EMS was called because of his recurrent seizures. He has been having some problem taking his medication. As per his previous discharge summary: Pt is a 28 year old male with PMHx pf retinitis pigmentosa, legally blind, frequent seizure disorder, newly diagnosed brain degenerative disease, urinary incontinence, impair mobility who was brought to the ER by EMS for c/o seizure activity. The medical history was provided by pt's mother who states that he was at home listening to a video when the seizure suddenly started, it lasted about 2 mins. Pt's mom reports that he had a total of 3 seizures by the time EMS arrived. The patient received Keppra throughout hospitalization with no seizure activity. However, Neurology reports on the evening of 08/20/17 patient did have a brief seizure. Medications were adjusted by neurology. Mother also reports patient with unclear or incomprehensible speech that has resolved. The patient has remained seizure free and is felt to have received maximal hospital benefit for discharge. Patient had an elevated lactic acid on admission but checks x- ray, Blood and urine cultures were found to be negative. The patient was awaiting discharge but had transportation issues and did not leave until the following day. On that evening, patient had a seizure. Patient's Keppra dose was increased for the home medication. Neurology saw the patient prior to discharge and felt the patient was okay to discharge. Patient will be discharged today. Dedicated discharge time 32 minutes. Disposition: DC-01 TO HOME OR SELFCARE Time spent for discharge: 32 - Discharge Diagnoses (1) Status epilepticus Status: Acute (2) Nausea & vomiting Status: Acute Considering the patient's febrile state, likely sepsis and impending respiratory failure, I immediately discussed his resuscitation status with his mother. She is requesting full CODE STATUS. I explained the need for intubation. Therefore, we proceeded with informed consent. -: days(s) - Related Data Home Medications Medication Instructions Recorded Confirmed Last Taken Keppra TAB 1,500 mg PO BID 08/23/18 08/23/18 Unknown Previous Rx's Medication Instructions Recorded Last Taken Type LORazepam [Ativan] 1 mg PO BID PRN #6 tab 01/06/18 Unknown Rx LORazepam [Ativan] 1 mg PO BID #10 tab 01/21/18 Unknown Rx Famotidine [Pepcid] 20 mg PO BID #60 tablet 08/22/18 Unknown Rx LORazepam [Ativan] 1 mg PO BID #30 tablet 08/22/18 Unknown Rx Lacosamide [Vimpat] 200 mg PO Q12HR #60 tablet 08/22/18 Unknown Rx Topiramate [Topamax] 100 mg PO Q12HR #60 tablet 08/22/18 Unknown Rx lamoTRIgine [LaMICtal] 300 mg PO BID #60 tablet 08/22/18 Unknown Rx levETIRAcetam [Keppra TAB] 750 mg PO BID #60 tablet 08/22/18 Unknown Rx levETIRAcetam [Keppra] 1,500 mg PO BID #50 tablet 08/23/18 Unknown Rx Allergies Allergy/AdvReac Type Severity Reaction Status Date / Time Penicillins Allergy Angioedema Verified 01/01/18 13:03 shellfish derived Allergy Swelling Verified 01/01/18 13:03 ED Review of Systems ROS: Stated complaint: SEIZURES Other details as noted in HPI Comment: Unobtainable due to pts medical conditions ED Past Medical Hx - Past Medical History Hx Hypertension: No Hx CVA: Yes (2013) Hx Congestive Heart Failure: No Hx Diabetes: No Hx Deep Vein Thrombosis: No Hx Pulmonary Embolism: No Hx Seizures: Yes Hx Asthma: No Hx COPD: No Hx Tuberculosis: No Hx Dementia: Yes Hx HIV: No Additional medical history: blind, 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, 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 - Surgical History Hx Pacemaker: No Hx Internal Defibrillator: No Additional Surgical History: Vagal nerve stimulator - Social History Smoking Status: Never Smoker - Medications Home Medications: Home Medications Medication Instructions Recorded Confirmed Last Taken Type LORazepam [Ativan] 1 mg PO BID PRN #6 tab 01/06/18 08/18/18 Unknown Rx LORazepam [Ativan] 1 mg PO BID #10 tab 01/21/18 08/18/18 Unknown Rx Famotidine [Pepcid] 20 mg PO BID #60 tablet 08/22/18 Unknown Rx LORazepam [Ativan] 1 mg PO BID #30 tablet 08/22/18 Unknown Rx Lacosamide [Vimpat] 200 mg PO Q12HR #60 tablet 08/22/18 Unknown Rx Topiramate [Topamax] 100 mg PO Q12HR #60 tablet 08/22/18 Unknown Rx lamoTRIgine [LaMICtal] 300 mg PO BID #60 tablet 08/22/18 Unknown Rx levETIRAcetam [Keppra TAB] 750 mg PO BID #60 tablet 08/22/18 Unknown Rx Keppra TAB 1,500 mg PO BID 08/23/18 08/23/18 Unknown History levETIRAcetam [Keppra] 1,500 mg PO BID #50 tablet 08/23/18 Unknown Rx ED Physical Exam - General Limitations: Altered Mental Status General appearance: other (toxic-appearing, febrile, tachycardic and hypertensive) - Head Head exam: Present: atraumatic - Eye Eye exam: Absent: scleral icterus - ENT ENT exam: Present: mucous membranes dry - Neck Neck exam: Absent: meningismus - Respiratory Respiratory exam: Present: accessory muscle use, decreased breath sounds, other (hypoventilation) - Cardiovascular Cardiovascular Exam: Present: tachycardia - GI/Abdominal GI/Abdominal exam: Present: soft. Absent: distended, tenderness, guarding, rebound, rigid - Extremities Exam Extremities exam: Present: normal inspection - Back Exam Back exam: Present: other (unable to inspect currently) - Neurological Exam Neurological exam: Present: other (patient is essentially flaccid, obtunded and very poorly responsive to noxious stimuli) - Psychiatric Psychiatric exam: Present: other (GCS less than 8) - Skin Skin exam: Present: warm, dry (could not adequately visualize back) ED Course - Reevaluation(s) Reevaluation #1: We proceeded for elective intubation to first secure the patient's airway. This was done without difficulty. He was given management of his hypertension, fluid bolus, empiric antibiotics, he will need a CT of his head which has been ordered. He will need to be rolled over to check for bedsores as he is bedridden. Dr. Singletary has early been informed of the need to admit the patient. He is pending ICU admission. The mother was informed of our progress. 10/09/18 15:33 - Intubation Time Out Performed: No Sedative: Etomidate Mg Given: 16 Paralytic: Succinylcholine Mg Given: 160 Laryngoscope: Nelson Size: 4 ET Tube Size: 7.5 Tube Secured Depth (cm): 23 Tube Secured Location: lips Tube Placement Confirmation: visualized tube passing t Patient Tolerated Procedure: well Intubation Complications: none ED Medical Decision Making - Lab Data Laboratory Results - last 24 hr 10/09/18 15:13 VBG pH 7.267 L - Radiology Data Radiology results: report reviewed, image reviewed (chest x-ray shows tubes in good position. I don't see any acute cardiopulmonary process) Critical Care Time: Yes Critical care time in (mins) excluding proc time.: 60 Critical care attestation.: If time is entered above; I have spent that time in minutes in the direct care of this critically ill patient, excluding procedure time. ED Disposition Clinical Impression: Status epilepticus Sepsis Qualifiers: Sepsis type: sepsis due to unspecified organism Qualified Code(s): A41.9 - Sepsis, unspecified organism Respiratory failure Qualifiers: Chronicity: acute Respiratory failure complication: unspecified whether with hypoxia or hypercapnia Qualified Code(s): J96.00 - Acute respiratory failure, unspecified whether with hypoxia or hypercapnia Disposition: OP ADMIT IP TO THIS HOSP Is pt being admited?: Yes Does the pt Need Aspirin: Yes Condition: Stable Referrals: LANIE GARCIA MD [Primary Care Provider] - 3-5 Days Time of Disposition: 15:41
--- NOTE | 2018-10-09 15:28 | XRay Report ---
PORTABLE CHEST INDICATION: ET tube placement. COMPARISON: 08/18/2018 FINDINGS: Portable, frontal chest radiograph demonstrates new endotracheal tube tip approximately 3.4 cm above the adrián. A new esophagogastric tube also extends into the stomach with its tip directed laterally. Stable slight exaggerated cardiomediastinal silhouette, given somewhat limited inspiration. No pleural effusions or CHF. Stable left-sided battery pack with possible left lower neck stimulator lead. EKG leads. Intact bones. CONCLUSION: Interval intubation and esophagogastric tube placement with few other findings, as above. Thank you for the opportunity to participate in this patient's care.
[2018-10-09] MEDS ORDERED: TYLENOL PR ONE (15:38)
[2018-10-09 15:43] LABS: BUN/Creatinine Ratio 9; Blood Urea Nitrogen 8 mg/dL (9-20); Calcium 9.3 mg/dL (8.4-10.2); Hematocrit 46.2 % (35.5-45.6); Hemoglobin 15.7 gm/dl (11.8-15.2); Hemolysis Index 53; Mean Corpuscular HGB Conc 34 % (32-34); Mean Corpuscular Volume 92 fl (84-94); Platelet Count 494 K/mm3 (140-440); Red Cell Distribution Width 12.8 % (13.2-15.2)
[2018-10-09 15:47] LABS: Creatine Kinase MB 8.3 ng/mL (0.0-4.0)
[2018-10-09 15:49] LABS: Alanine Aminotransferase 44 units/L (7-56); Albumin 4.1 g/dL (3.9-5)
[2018-10-09 15:50] LABS: Bilirubin,Direct < 0.2 mg/dL (0-0.2)
[2018-10-09 15:56] LABS: INR 0.96 (0.87-1.13)
[2018-10-09] MEDS ORDERED: VANCOMYCIN PHARMACY TO DOSE IV SCH ×2 (16:00→22:00)
[2018-10-09] MEDS ORDERED: MERREM 1,000 MG in NACL 0.9% 100 ML IV ONE (16:10)
[2018-10-09 16:41] LABS: Band Neutrophils # (Manual) 0.5 K/mm3; Basophils % (Manual) 0 % (0.0-1.8); Platelet Estimate Consistent w Auto; RBC Morphology Normal; Total Cells Counted 100
[2018-10-09] MEDS ORDERED: VANCOMYCIN 2,000 MG in NACL 0.9% 500 ML 500 ML IV ONE (17:00)
--- NOTE | 2018-10-09 18:05 | Cat Scan Report ---
PROCEDURE: CT HEAD/BRAIN WO CON TECHNIQUE: Computerized tomography of the head was performed without contrast material. Imaging was obtained in axial increments. CT DOSE LENGTH PRODUCT: 1047.8 mGycm HISTORY: AMS COMPARISONS: CT head 08/21/2018 . FINDINGS: The ventricular system is normal in size and configuration. There is atrophy of the cerebellum again noted. There is no evidence for mass lesion, mass effect, midline shift, acute intracranial hemorrhage, or a cute ischemia/ infarction. No evidence for acute skull fracture is seen. No abnormality in the overlying scalp soft tissues is s een. Visualized paranasal sinuses are clear. IMPRESSION: No acute intracranial process noted. No change. Atrophy and cerebellum again noted This document is electronically signed by Anjana Barnes MD., October 09 2018 06:02:51 PM ET
[2018-10-09] MEDS ORDERED: SUBLIMAZE IV ONE (18:33)
[2018-10-09] MEDS ORDERED: SUBLIMAZE IV PRN (18:57)
[2018-10-09] MEDS ORDERED: fentaNYL DRIP Premix 2,000 MCG/100 ML BAG IV SCH (19:00)
[2018-10-09 20:23] LABS: Bilirubin,Urine NEG (Negative); Blood,Urine NEG (Negative); Color,Urine Straw (Yellow); Protein,Urine <15 mg/dL mg/dL (Negative); RBC,Urine < 1.0 /HPF (0.0-6.0); Urobilinogen,Urine < 2.0 mg/dL (<2.0)
[2018-10-09] MEDS ORDERED: SIMPLE SYRUP FEEDTUBE PRN ×2 (20:54)
[2018-10-09] MEDS ORDERED: PANCREAZE DR 10,500 UNIT FEEDTUBE PRN (20:54)
[2018-10-09] MEDS ORDERED: SODIUM BICARBONATE FEEDTUBE PRN (20:54)
[2018-10-09] MEDS ORDERED: ZOFRAN IV PRN (20:54)
[2018-10-09] MEDS ORDERED: REGLAN IV PRN (20:54)
[2018-10-09] MEDS ORDERED: SODIUM CHLORIDE FLUSH SYRINGE 10 ML IV PRN (20:54)
[2018-10-09] MEDS ORDERED: NON-FORMULARY (Topiramate [Topamax] 50 MG) PO SCH (22:00)
[2018-10-09] MEDS ORDERED: LAMOTRIGINE 300 MG PO SCH (22:00)
--- NOTE | 2018-10-09 22:04 | Event Note ---
Date: 10/09/18 See history and physical in the reports Acute respiratory failure Status epilepticus Possible aspiration pneumonia
[2018-10-09] MEDS: D5/0.45NS 1,000 ML IV SCH (22:59)
[2018-10-09] MEDS: SODIUM CHLORIDE FLUSH SYRINGE 10 ML IV SCH (23:03)
[2018-10-09] MEDS: MAXIPIME/NS 2 GM/100 ML 2 GM/100 ML BAG IV SCH (23:11)
--- NOTE | 2018-10-09 23:45 | History and Physical Report ---
CHIEF COMPLAINT: Continuous seizures. HISTORY OF PRESENT ILLNESS: A 28-year-old with history of uncontrolled seizures recently discharged and comes back again for recurrent seizures. Because of the recurrent seizures, the patient was going into respiratory failure. For protection of airway, the patient was intubated in the Emergency Room. The patient had recurrent seizures over a month ago and was admitted and discharged. The patient was put on multiple antiepileptic drugs including Keppra, Vimpat, lacosamide, Topamax, and Lamictal. The patient was also diagnosed with a degenerative brain disorder. The patient also has retinitis pigmentosa. Apparently, the patient is bedridden, but verbal. He had been blind since . Fever for the last for 24 hours. PAST MEDICAL HISTORY: Significant for seizure disorder, recurrent; retinitis pigmentosa; and degenerative brain disorder. PAST SURGICAL HISTORY: Vagal nerve stimulator. SOCIAL HISTORY: Does not smoke. Bedridden. FAMILY HISTORY: Noncontributory. REVIEW OF SYSTEMS: Could not be done. The patient basically intubated, actively seizing, severely agitated, unresponsive, and fever present. PHYSICAL EXAMINATION: VITAL SIGNS: Temperature 99.5, pulse is 116, respiratory rate is 29, blood pressure 183/103; 142/77; 154/123. HEENT: Unremarkable. Dry mucous membranes. NECK: Supple, no lymphadenopathy, no thyromegaly. LUNGS: Clear to auscultation and percussion. Good air entry. CARDIOVASCULAR: S1, S2, heard. No gallop, no murmur, no rub. Apical impulse in left fifth intercostal space and midclavicular line. ABDOMEN: Soft and benign. No hepatosplenomegaly. No guarding, no rigidity. Hernial orifices are normal. EXTREMITIES: Good pedal pulses. No pedal edema. CENTRAL NERVOUS SYSTEM: Unresponsive. SKIN: Normal. LABORATORY DATA: Labs are significant for white count of 16,800; H and H is 15.7 and 46.2; platelet count is 494,000. ABG significant for pH of 7.267, pCO2 of 41.4, pO2 of 111, bicarbonate of 18.5, CO2 of 20, O2 sat of 98%. Labs are significant for sodium of 142, potassium 5.1, bicarbonate of 19, BUN and creatinine of 7 and 0.9, lactic acid 4.6 and 2.8, glucose is 128. CK is 131. CK-MB is 8.3, CK-MB relative index is 6.3. BNP 163. Urine is negative. IMAGING STUDIES: CT of the head, no acute intracranial process noted. Atrophy in the cerebellum noted. Chest x-ray shows interval intubation and esophagogastric tube placement with few of the findings. No infiltrates. ASSESSMENT AND PLAN: 1. Aspiration pneumonia. The patient has fever for the last 24 hours. May be having pneumonia versus aspiration pneumonia and sepsis. The patient started on IV cefepime and vancomycin. 2. Acute respiratory failure secondary to persistent seizures. The patient intubated for airway protection. Continue ventilator management. Critical care consult requested. 3. Persistent seizures. The patient initiated on IV Vimpat and IV Keppra also to continue Lamictal and Topamax by nasogastric tube. 4. Hyperkalemia, mild, should correct with IV fluids 5. Metabolic acidosis and lactic acidosis, probably secondary to persistent seizures. Repeat the CMP tomorrow morning. 6. Deep venous thrombosis prophylaxis, Lovenox 40 mg subcutaneous daily. Critical care time 40 minutes. JOB# [id number] ASHLEY/VALENTIN GALEANA
[2018-10-09] MEDS: KEPPRA 1,000 MG/NS 0.75% 100ML 1,000 MG/100 ML BAG IV SCH (23:47)
--- NOTE | 2018-10-09 23:47 | XRay Report ---
PROCEDURE: XR ABDOMEN 1V AP TECHNIQUE: Abdominal radiograph, single view. HISTORY: ng tube placement COMPARISONS: None . FINDINGS: There is a 3 to be terminating in the stomach. Lungs are clear. Endotracheal tube is terminating abou t 4 cm above the adrián. Visualized intestinal loops are unremarkable. Bilateral pleural spaces are c lear. IMPRESSION: Nasogastric tube is terminating in the stomach. This document is electronically signed by Kobi Waite MD., October 09 2018 11:45:31 PM ET
[2018-10-09] MEDS: TOPAMAX PO SCH (23:56)
[2018-10-10] MEDS: LaMICtal PO SCH ×3 (00:01→22:12)
[2018-10-10] MEDS: VIMPAT 200 MG in NACL 0.9% 100 ML IV SCH ×3 (00:33→22:11)
--- NOTE | 2018-10-10 00:43 | XRay Report ---
PROCEDURE: XR CHEST 1V AP TECHNIQUE: Chest radiograph single view. HISTORY: follow up respiratory failure COMPARISONS: None . FINDINGS: Heart: Normal. Mediastinum/Vessels: There is a battery identified in the left chest wall. Lungs/Pleural space: Normal. Bony thorax: No acute osseous abnormality. Life support devices: The endotracheal tube ends 4 cm above the adrián. Nasogastric tube ends in the upper stomach. IMPRESSION: There is no evidence of an acute cardiopulmonary process. The endotracheal tube and naso gastric tube are properly positioned. This document is electronically signed by Alexa Granger DO., October 10 2018 12:41:35 AM ET
[2018-10-10 04:40] LABS: Basophils # (Auto) 0.1 K/mm3 (0.0-0.1); Basophils % (Auto) 0.5 % (0.0-1.8); Eosinophils # (Auto) 0.2 K/mm3 (0.0-0.4); Eosinophils % (Auto) 1.2 % (0.0-4.3); Hematocrit 40.9 % (35.5-45.6); Lymphocytes # (Auto) 2.6 K/mm3 (1.2-5.4); Lymphocytes % (Auto) 16.7 % (13.4-35.0); Mean Corpuscular HGB Conc 34 % (32-34); Mean Corpuscular Volume 91 fl (84-94); Monocytes # (Auto) 1.1 K/mm3 (0.0-0.8); Monocytes % (Auto) 6.8 % (0.0-7.3); Platelet Count 387 K/mm3 (140-440); Red Cell Distribution Width 12.5 % (13.2-15.2)
[2018-10-10 05:05] LABS: Alanine Aminotransferase 33 units/L (7-56); Albumin 3.5 g/dL (3.9-5); BUN/Creatinine Ratio 10; Blood Urea Nitrogen 7 mg/dL (9-20); Calcium 8.5 mg/dL (8.4-10.2); Hemolysis Index 12
[2018-10-10] MEDS: VANCOMYCIN 2,000 MG in NACL 0.9% 500 ML 500 ML IV SCH ×2 (05:28→16:17)
[2018-10-10] MEDS: MAXIPIME/NS 2 GM/100 ML 2 GM/100 ML BAG IV SCH ×3 (05:36→22:12)
[2018-10-10] MEDS: ATIVAN IV PRN (05:42)
--- NOTE | 2018-10-10 09:09 | Progress Note ---
Assessment and Plan Assessment and plan: --Status epilepticus; seizure precautions, continue antiepileptic medications Ativan as needed, neurology consult, neuro workup --Acute respiratory failure; on mechanical ventilation Pulmonary critical following, venous tolerated extubate --Possible aspiration pneumonia; antibiotics, follow cultures --Metabolic acidosis/lactic acidosis; Mild improvement, continue supportive care --[id number] malnutrition/hypoalbuminemia; nutrition supplements and supportive, tube feeding --Obesity; BMI 39.5 Patient needs weight reduction when medically stable --DVT prophylaxis; Lovenox Monitor the patient closely and adjust the management as needed Critical care time 35 minutes History Interval history: Patient seen and examined medical records reviewed Admitted with status epilepticus intubated Current ventilatory support. Ativan drip No new episodes of seizures since admission Vital signs noted Hospitalist Physical - Constitutional Vitals: Temp Pulse Resp BP Pulse Ox 98.3 F 66 18 111/49 96 10/10/18 08:00 10/10/18 09:00 10/10/18 09:00 10/10/18 09:00 10/10/18 09:00 General appearance: Present: no acute distress, other (intubated and sedated) - EENT Eyes: Present: PERRL. Absent: scleral icterus - Neck Neck: Present: supple, other (ET tube and Dobbhoff in place) - Respiratory Respiratory effort: normal Respiratory: bilateral: diminished, rhonchi, negative: rales, wheezing - Cardiovascular Rhythm: regular Heart Sounds: Present: S1 & S2 - Extremities Extremities: no ischemia, No edema - Abdominal General gastrointestinal: soft, non-tender, non-distended, normal bowel sounds - Integumentary Integumentary: Present: clear, warm - Psychiatric Psychiatric: other (intubated and sedated) - Neurologic Neurologic: other (intubated and sedated) Results - Labs CBC & Chem 7: 10/10/18 04:19 10/10/18 04:19 Labs: Laboratory Last Values WBC 15.6 K/mm3 (4.5-11.0) H 10/10/18 04:19 RBC 4.50 M/mm3 (3.65-5.03) 10/10/18 04:19 Hgb 14.0 gm/dl (11.8-15.2) 10/10/18 04:19 Hct 40.9 % (35.5-45.6) 10/10/18 04:19 MCV 91 fl (84-94) 10/10/18 04:19 MCH 31 pg (28-32) 10/10/18 04:19 MCHC 34 % (32-34) 10/10/18 04:19 RDW 12.5 % (13.2-15.2) L 10/10/18 04:19 Plt Count 387 K/mm3 (140-440) 10/10/18 04:19 Lymph % (Auto) 16.7 % (13.4-35.0) 10/10/18 04:19 [place] % (Auto) 6.8 % (0.0-7.3) 10/10/18 04:19 Eos % (Auto) 1.2 % (0.0-4.3) 10/10/18 04:19 Baso % (Auto) 0.5 % (0.0-1.8) 10/10/18 04:19 Lymph # 2.6 K/mm3 (1.2-5.4) 10/10/18 04:19 [place] # 1.1 K/mm3 (0.0-0.8) H 10/10/18 04:19 Eos # 0.2 K/mm3 (0.0-0.4) 10/10/18 04:19 Baso # 0.1 K/mm3 (0.0-0.1) 10/10/18 04:19 Add Manual Diff Complete 10/09/18 15:13 Total Counted 100 10/09/18 15:13 Seg Neutrophils % 74.8 % (40.0-70.0) H 10/10/18 04:19 Seg Neuts % (Manual) 74.0 % (40.0-70.0) H 10/09/18 15:13 Band Neutrophils % 3.0 % 10/09/18 15:13 Lymphocytes % (Manual) 14.0 % (13.4-35.0) 10/09/18 15:13 Reactive Lymphs % (Man) 0 % 10/09/18 15:13 Monocytes % (Manual) 8.0 % (0.0-7.3) H 10/09/18 15:13 Eosinophils % (Manual) 1.0 % (0.0-4.3) 10/09/18 15:13 Basophils % (Manual) 0 % (0.0-1.8) 10/09/18 15:13 Metamyelocytes % 0 % 10/09/18 15:13 Myelocytes % 0 % 10/09/18 15:13 Promyelocytes % 0 % 10/09/18 15:13 Blast Cells % 0 % 10/09/18 15:13 Nucleated RBC % Not Reportable 10/09/18 15:13 Seg Neutrophils # 11.6 K/mm3 (1.8-7.7) H 10/10/18 04:19 Seg Neutrophils # Man 12.4 K/mm3 (1.8-7.7) H 10/09/18 15:13 Band Neutrophils # 0.5 K/mm3 10/09/18 15:13 Lymphocytes # (Manual) 2.4 K/mm3 (1.2-5.4) 10/09/18 15:13 Abs React Lymphs (Man) 0.0 K/mm3 10/09/18 15:13 Monocytes # (Manual) 1.3 K/mm3 (0.0-0.8) H 10/09/18 15:13 Eosinophils # (Manual) 0.2 K/mm3 (0.0-0.4) 10/09/18 15:13 Basophils # (Manual) 0.0 K/mm3 (0.0-0.1) 10/09/18 15:13 Metamyelocytes # 0.0 K/mm3 10/09/18 15:13 Myelocytes # 0.0 K/mm3 10/09/18 15:13 Promyelocytes # 0.0 K/mm3 10/09/18 15:13 Blast Cells # 0.0 K/mm3 10/09/18 15:13 WBC Morphology Not Reportable 10/09/18 15:13 Hypersegmented Neuts Not Reportable 10/09/18 15:13 Hyposegmented Neuts Not Reportable 10/09/18 15:13 Hypogranular Neuts Not Reportable 10/09/18 15:13 Smudge Cells Not Reportable 10/09/18 15:13 Toxic Granulation Not Reportable 10/09/18 15:13 Toxic Vacuolation Not Reportable 10/09/18 15:13 Dohle Bodies Not Reportable 10/09/18 15:13 Pelger-Huet Anomaly Not Reportable 10/09/18 15:13 Nereida Rods Not Reportable 10/09/18 15:13 Platelet Estimate Consistent w auto 10/09/18 15:13 Clumped Platelets Not Reportable 10/09/18 15:13 Plt Clumps, EDTA Not Reportable 10/09/18 15:13 Large Platelets Not Reportable 10/09/18 15:13 Giant Platelets Not Reportable 10/09/18 15:13 Platelet Satelliting Not Reportable 10/09/18 15:13 Plt Morphology Comment Not Reportable 10/09/18 15:13 RBC Morphology Normal 10/09/18 15:13 Dimorphic RBCs Not Reportable 10/09/18 15:13 Polychromasia Not Reportable 10/09/18 15:13 Hypochromasia Not Reportable 10/09/18 15:13 Poikilocytosis Not Reportable 10/09/18 15:13 Anisocytosis Not Reportable 10/09/18 15:13 Microcytosis Not Reportable 10/09/18 15:13 Macrocytosis Not Reportable 10/09/18 15:13 Spherocytes Not Reportable 10/09/18 15:13 Pappenheimer Bodies Not Reportable 10/09/18 15:13 Sickle Cells Not Reportable 10/09/18 15:13 Target Cells Not Reportable 10/09/18 15:13 Tear Drop Cells Not Reportable 10/09/18 15:13 Ovalocytes Not Reportable 10/09/18 15:13 Helmet Cells Not Reportable 10/09/18 15:13 [place] Bodies Not Reportable 10/09/18 15:13 [place] Rings Not Reportable 10/09/18 15:13 [place] Cells Not Reportable 10/09/18 15:13 Bite Cells Not Reportable 10/09/18 15:13 Crenated Cell Not Reportable 10/09/18 15:13 Elliptocytes Not Reportable 10/09/18 15:13 Acanthocytes (Spur) Not Reportable 10/09/18 15:13 Rouleaux Not Reportable 10/09/18 15:13 Hemoglobin C Crystals Not Reportable 10/09/18 15:13 Schistocytes Not Reportable 10/09/18 15:13 Malaria parasites Not Reportable 10/09/18 15:13 Miguel Bodies Not Reportable 10/09/18 15:13 Hem Pathologist Commnt No 10/09/18 15:13 PT 13.4 Sec. (12.2-14.9) 10/09/18 15:13 INR 0.96 (0.87-1.13) 10/09/18 15:13 APTT 23.0 Sec. (24.2-36.6) L 10/09/18 15:13 POC ABG pH 7.302 (7.35-7.45) L 10/10/18 04:03 POC ABG pCO2 39.7 (35-45) 10/10/18 04:03 POC ABG pO2 132 (80-105) H 10/10/18 04:03 POC ABG HCO3 19.6 (22-26 mml/L) 10/10/18 04:03 POC ABG Total CO2 21 (23-27mmol/L) 10/10/18 04:03 POC ABG O2 Sat 99 10/10/18 04:03 POC ABG Base Excess -7 ((-2) - (+3)mmol/L) 10/10/18 04:03 VBG pH 7.267 (7.320-7.420) L 10/09/18 15:13 FiO2 30 % 10/10/18 04:03 Sodium 137 mmol/L (137-145) 10/10/18 04:19 Potassium 4.3 mmol/L (3.6-5.0) 10/10/18 04:19 Chloride 106.8 mmol/L (98-107) 10/10/18 04:19 Carbon Dioxide 19 mmol/L (22-30) L 10/10/18 04:19 Anion Gap 16 mmol/L 10/10/18 04:19 BUN 7 mg/dL (9-20) L 10/10/18 04:19 Creatinine 0.7 mg/dL (0.8-1.5) L 10/10/18 04:19 Estimated GFR > 60 ml/min 10/10/18 04:19 BUN/Creatinine Ratio 10 % 10/10/18 04:19 Glucose 118 mg/dL (75-100) H 10/10/18 04:19 Lactic Acid 1.50 mmol/L (0.7-2.0) 10/10/18 00:56 Calcium 8.5 mg/dL (8.4-10.2) 10/10/18 04:19 Magnesium 1.80 mg/dL (1.7-2.3) 10/09/18 15:13 Total Bilirubin 0.20 mg/dL (0.1-1.2) 10/10/18 04:19 Direct Bilirubin < 0.2 mg/dL (0-0.2) 10/09/18 15:13 Indirect Bilirubin 0.0 mg/dL 10/09/18 15:13 AST 26 units/L (5-40) 10/10/18 04:19 ALT 33 units/L (7-56) 10/10/18 04:19 Alkaline Phosphatase 83 units/L (35-129) 10/10/18 04:19 Ammonia 111.0 umol/L (25-60) H 10/09/18 15:23 Total Creatine Kinase 131 units/L (55-170) 10/09/18 15:13 CK-MB (CK-2) 8.3 ng/mL (0.0-4.0) H 10/09/18 15:13 CK-MB (CK-2) Rel Index 6.3 (0-4) H 10/09/18 15:13 NT-Pro-B Natriuret Pep 163.1 pg/mL (0-450) 10/09/18 15:13 Total Protein 6.1 g/dL (6.3-8.2) L D 10/10/18 04:19 Albumin 3.5 g/dL (3.9-5) L 10/10/18 04:19 Albumin/Globulin Ratio 1.3 % 10/10/18 04:19 Lipase 24 units/L (13-60) 10/09/18 15:13 Urine Color Straw (Yellow) 10/09/18 Unknown Urine Turbidity Clear (Clear) 10/09/18 Unknown Urine pH 7.0 (5.0-7.0) 10/09/18 Unknown Ur Specific [place] 1.006 (1.003-1.030) 10/09/18 Unknown Urine Protein <15 mg/dl mg/dL (Negative) 10/09/18 Unknown Urine Glucose (UA) Neg mg/dL (Negative) 10/09/18 Unknown Urine Ketones Neg mg/dL (Negative) 10/09/18 Unknown Urine Blood Neg (Negative) 10/09/18 Unknown Urine Nitrite Neg (Negative) 10/09/18 Unknown Urine Bilirubin Neg (Negative) 10/09/18 Unknown Urine Urobilinogen < 2.0 mg/dL (<2.0) 10/09/18 Unknown Ur Leukocyte Esterase Neg (Negative) 10/09/18 Unknown Urine WBC (Auto) 0.0 /HPF (0.0-6.0) 10/09/18 Unknown Urine RBC (Auto) < 1.0 /HPF (0.0-6.0) 10/09/18 Unknown U Epithel Cells (Auto) < 1.0 /HPF (0-13.0) 10/09/18 Unknown Active Medications - Current Medications Current Medications: Generic Name Dose Route Start Last Admin Trade Name Freq PRN Reason Stop Dose Admin Lipase/Protease/Amylase 1 each 10/09/18 20:[address] 10,500 Unit FEEDTUBE PRN PRN For Clogged Feeding Tube Enoxaparin Sodium 40 mg 10/10/18 22:00 Lovenox SUB-Q QDAY@2200 SILVANA Fentanyl 50 mcg 10/09/18 18:57 Sublimaze IV Q10MIN PRN ANALGESIA Hydromorphone HCl 0.5 mg 10/09/18 20:54 Dilaudid IV Q3H PRN Pain , Severe (7-10) Hydrophilic Ointment 1 applic 10/09/18 14:49 Vaseline Lip Therapy TP Q2HR PRN Dry Lips Lorazepam 100 mg/ Sodium 100 mls @ 1 mls/hr 10/09/18 15:00 10/10/18 07:49 Chloride/ Miscellaneous IV 1 mg/hr Information TITR SILVANA 1 mls/hr Titration Protocol 1 MG/HR Vancomycin HCl 2,000 mg/ 540 mls @ 250 mls/hr 10/10/18 04:00 10/10/18 05:28 Sodium Chloride IV 250 mls/hr Q12H SILVANA Administration Fentanyl Citrate 2,000 mcg in 100 mls @ 5.897 mls/hr 10/09/18 19:00 10/09/18 22:45 Fentanyl Drip Premix IV 0 mcg/kg/hr TITR SILVANA 0 mls/hr Titration Protocol 1 MCG/KG/HR Dextrose/Sodium Chloride 1,000 mls @ 75 mls/hr 10/09/18 21:00 10/09/18 22:59 D5/0.45ns IV 75 mls/hr DIRECT SILVANA Administration Levetiracetam 1,000 mg in 100 mls @ 400 mls/hr 10/09/18 22:00 10/09/18 23:47 Keppra 1,000 Mg/Ns 0.75% 100ml IV 400 mls/hr Q12HR SILVANA Administration Lacosamide 200 mg/ Sodium 120 mls @ 100 mls/hr 10/09/18 22:00 10/10/18 00:33 Chloride IV 100 mls/hr Q12H SILVANA Administration Cefepime HCl 2 gm in 100 mls @ 200 mls/hr 10/09/18 22:00 10/10/18 05:36 Maxipime/Ns 2 Gm/100 Ml IV 200 mls/hr Q8HR SILVANA Administration Protocol Lamotrigine 300 mg 10/09/18 22:00 10/10/18 00:01 Lamictal PO 300 mg BID SILVANA Administration Lorazepam 2 mg 10/09/18 14:49 10/10/18 05:42 Ativan IV 2 mg Q10MIN PRN Administration Agitation Metoclopramide HCl 10 mg 10/09/18 20:54 Reglan IV Q6H PRN Nausea And Vomiting Multi-Ingred Cream/Lotion/Oil/Oint 1 applic 10/09/18 14:49 Artificial Tears Ophth Oint OU Q4HR PRN Dry Eye(s) Ondansetron HCl 4 mg 10/09/18 20:54 Zofran IV Q8H PRN Nausea And Vomiting Simple Syrup 15 ml 10/09/18 20:54 Simple Syrup FEEDTUBE PRN PRN Hypoglycemia Simple Syrup 30 ml 10/09/18 20:54 Simple Syrup FEEDTUBE PRN PRN Hypoglycemia Sodium Bicarbonate 325 mg 10/09/18 20:54 Sodium Bicarbonate FEEDTUBE PRN PRN For Clogged Feeding Tube Sodium Chloride 10 ml 10/09/18 22:00 10/09/18 23:03 Sodium Chloride Flush Syringe 10 Ml IV 10 ml BID SILVANA Administration Sodium Chloride 10 ml 10/09/18 20:54 Sodium Chloride Flush Syringe 10 Ml IV PRN PRN LINE FLUSH Topiramate 50 mg 10/09/18 22:00 10/09/18 23:56 Topamax PO 50 mg Q12HR SILVANA Administration Trazodone HCl 50 mg 10/10/18 18:00 Desyrel PO QPM [facility] Nutrition/Malnutrition Assess - Dietary Evaluation Nutrition/Malnutrition Findings: Nutrition Notes Start: 10/10/18 07:56 Freq: Status: Active Protocol: Document 10/10/18 07:56 LP (Rec: 10/10/18 08:03 LP [id number]) Nutrition Notes Need for Assessment generated from: MD Order Initial or Follow up Assessment Current Diagnosis Sepsis,Respiratory Failure, Stroke Other Pertinent Diagnosis dementia, seizures, pneu Current Diet NPO Labs/Tests Reviewed Pertinent Medications D5 1/2 NS at 75ml/hr Height 5 ft 8 in Weight 117.934 kg [place] Body Weight (kg) 70.00 BMI 39.5 Subjective/Other Information Consult for TF. Pt on vent. Burn Absent Trauma Absent #1 Nutrition Diagnosis Inadequate oral intake Etiology vent As Evidenced by Signs and Symptoms Pt unable to consume PO Is patient on ventilator? Yes Is Patient Ambulatory and/or Out of Bed No REE-([facility]-confined to bed) 2561.688 Kcal/Kg value to use for calculation 17 Approximate Energy Requirements Using 2005 kcal/Kg Calculation Used for Recommendations Kcal/kg Additional Notes Protein needs are 140g (2g/kg) Fluid needs are 1ml/kcal Nutrition Intervention Change Diet Order: TF Nutrition Support: Promote at 80ml/hr Flush with 50ml q4h Kcal 1,920 Protein (gm) 120 Fluid (mL) 1,611 Goal #1 Meet at least 80% of kcal and protein needs via TF Anticipated Discharge Needs: Unable to determine at this time Follow-Up By: 10/12/18 Additional Comments Follow for TF start/tolerance
[2018-10-10] MEDS: SODIUM CHLORIDE FLUSH SYRINGE 10 ML IV SCH (09:35)
[2018-10-10] MEDS: KEPPRA 1,000 MG/NS 0.75% 100ML 1,000 MG/100 ML BAG IV SCH (09:38)
[2018-10-10] MEDS ORDERED: SODIUM BICARBONATE FEEDTUBE PRN (09:39)
[2018-10-10] MEDS ORDERED: SIMPLE SYRUP FEEDTUBE PRN ×2 (09:39)
[2018-10-10] MEDS: TOPAMAX PO SCH ×2 (09:39→22:12)
[2018-10-10] MEDS ORDERED: PANCREAZE DR 10,500 UNIT FEEDTUBE PRN (09:39)
[2018-10-10] MEDS ORDERED: KEPPRA 500 MG in NACL 0.9% 100 ML IV ONE (11:00)
[2018-10-10] MEDS: KEPPRA 1,500 MG in NACL 0.9% 100 ML IV SCH ×2 (11:07→22:11)
--- NOTE | 2018-10-10 13:16 | Consultation ---
History of Present Illness Consult date: 10/10/18 Requesting physician: MITCH MEDINA Reason for consult: other (Status Epilepticus) History of present illness: 28 y/o male with known history of chronic seizure disorder admitted with status epilepticus and acute respiratory failure requiring intubation. patient is currently sedated and no family members at bedside so no further histrory can be obtained. Past History Past Medical History: other (seizures) Past Surgical History: Other (unable to obtain but known Vagus nerve stimulator seen on CXR) Social history: other (Lives with mother) Family history: other (unable to obtain) Medications and Allergies Allergies Allergy/AdvReac Type Severity Reaction Status Date / Time Penicillins Allergy Angioedema Verified 01/01/18 13:03 shellfish derived Allergy Swelling Verified 01/01/18 13:03 Home Medications Medication Instructions Recorded Confirmed Last Taken Type ALPRAZolam [Xanax TAB] 0.5 mg PO QPM 10/09/18 10/09/18 Unknown History Lacosamide [Vimpat] 200 mg PO BID 10/09/18 10/09/18 Unknown History Melatonin 10 mg PO QPM 10/09/18 10/09/18 Unknown History Ranitidine HCl [Zantac] 150 mg PO BID 10/09/18 10/09/18 Unknown History Topiramate [Topamax] 50 mg PO BID 10/09/18 10/09/18 Unknown History lamoTRIgine [Lamictal] 300 mg PO BID 10/09/18 10/09/18 Unknown History levETIRAcetam [Keppra TAB] 1,500 mg PO BID 10/09/18 10/09/18 Unknown History traZODone [Desyrel] 50 mg PO QPM 10/09/18 10/09/18 Unknown History Active Meds: Active Medications Lipase/Protease/Amylase (Pancreaze Dr 10,500 Unit) 1 each FEEDTUBE PRN PRN PRN Reason: For Clogged Feeding Tube Enoxaparin Sodium (Lovenox) 40 mg SUB-Q QDAY@2200 SILVANA Fentanyl (Sublimaze) 50 mcg IV Q10MIN PRN PRN Reason: ANALGESIA Hydromorphone HCl (Dilaudid) 0.5 mg IV Q3H PRN PRN Reason: Pain , Severe (7-10) Hydrophilic Ointment (Vaseline Lip Therapy) 1 applic TP Q2HR PRN PRN Reason: Dry Lips Lorazepam 100 mg/ Sodium Chloride/ Miscellaneous Information 100 mls @ 1 mls/hr IV TITR SILVANA; Protocol Last Titration: 10/10/18 11:48 Dose: 0.5 mg/hr, 0.5 mls/hr Documented by: Vancomycin HCl 2,000 mg/ (Sodium Chloride) 540 mls @ 250 mls/hr IV Q12H SILVANA Last Admin: 10/10/18 05:28 Dose: 250 mls/hr Documented by: Fentanyl Citrate (Fentanyl Drip Premix) 2,000 mcg in 100 mls @ 5.897 mls/hr IV TITR SILVANA; Protocol Last Titration: 10/10/18 10:12 Dose: 0 mcg/kg/hr, 0 mls/hr Documented by: Dextrose/Sodium Chloride (D5/0.45ns) 1,000 mls @ 75 mls/hr IV DIRECT SILVANA Last Admin: 10/09/18 22:59 Dose: 75 mls/hr Documented by: Lacosamide 200 mg/ Sodium (Chloride) 120 mls @ 100 mls/hr IV Q12H [facility] Last Admin: 10/10/18 09:40 Dose: 100 mls/hr Documented by: Cefepime HCl (Maxipime/Ns 2 Gm/100 Ml) 2 gm in 100 mls @ 200 mls/hr IV Q8HR [facility]; Protocol Last Admin: 10/10/18 05:36 Dose: 200 mls/hr Documented by: Levetiracetam 1,500 mg/ Sodium (Chloride) 115 mls @ 400 mls/hr IV Q12HR [facility] Last Admin: 10/10/18 11:07 Dose: Not Given Documented by: Lamotrigine (Lamictal) 300 mg PO BID [facility] Last Admin: 10/10/18 09:39 Dose: 300 mg Documented by: Lorazepam (Ativan) 2 mg IV Q10MIN PRN PRN Reason: Agitation Last Admin: 10/10/18 05:42 Dose: 2 mg Documented by: Metoclopramide HCl (Reglan) 10 mg IV Q6H PRN PRN Reason: Nausea And Vomiting Multi-Ingred Cream/Lotion/Oil/Oint (Artificial Tears Ophth Oint) 1 applic OU Q4HR PRN PRN Reason: Dry Eye(s) Ondansetron HCl (Zofran) 4 mg IV Q8H PRN PRN Reason: Nausea And Vomiting Simple Syrup (Simple Syrup) 15 ml FEEDTUBE PRN PRN PRN Reason: Hypoglycemia Simple Syrup (Simple Syrup) 30 ml FEEDTUBE PRN PRN PRN Reason: Hypoglycemia Simple Syrup (Simple Syrup) 15 ml FEEDTUBE PRN PRN PRN Reason: Hypoglycemia Simple Syrup (Simple Syrup) 30 ml FEEDTUBE PRN PRN PRN Reason: Hypoglycemia Sodium Bicarbonate (Sodium Bicarbonate) 325 mg FEEDTUBE PRN PRN PRN Reason: For Clogged Feeding Tube Sodium Bicarbonate (Sodium Bicarbonate) 325 mg FEEDTUBE PRN PRN PRN Reason: For Clogged Feeding Tube Sodium Chloride (Sodium Chloride Flush Syringe 10 Ml) 10 ml IV BID [facility] Last Admin: 10/10/18 09:35 Dose: 10 ml Documented by: Sodium Chloride (Sodium Chloride Flush Syringe 10 Ml) 10 ml IV PRN PRN PRN Reason: LINE FLUSH Topiramate (Topamax) 50 mg PO Q12HR [facility] Last Admin: 10/10/18 09:39 Dose: 50 mg Documented by: Trazodone HCl (Desyrel) 50 mg PO QPM [facility] Review of Systems ROS unobtainable: due to endotracheal tube, due to mental status All systems: negative Physical Examination Vital signs: Vital Signs Pulse Resp Pulse Ox 116 H 29 H 99 10/09/18 14:44 10/09/18 14:44 10/09/18 14:44 General appearance: other (orally intubated and sedated) Eyes: non-icteric ENT: other (orally intubated) Neck: supple Effort: normal Ascultation: Bilateral: clear Percussion: Bilateral: not dull Cardiovascular: regular rate and rhythm Gastrointestinal: normoactive bowel sounds, soft Integumentary: normal Extremities: no cyanosis, no edema, pink and warm Results - Laboratory Findings CBC and BMP: 10/11/18 Unknown 10/11/18 08:26 ABG POC ABG pH 7.302 (7.35-7.45) L 10/10/18 04:03 POC ABG pCO2 39.7 (35-45) 10/10/18 04:03 POC ABG pO2 132 (80-105) H 10/10/18 04:03 POC ABG HCO3 19.6 (22-26 mml/L) 10/10/18 04:03 POC ABG Total CO2 21 (23-27mmol/L) 10/10/18 04:03 POC ABG O2 Sat 99 10/10/18 04:03 PT/INR, D-dimer PT 13.4 Sec. (12.2-14.9) 10/09/18 15:13 INR 0.96 (0.87-1.13) 10/09/18 15:13 Abnormal lab findings: Abnormal Labs 10/09/18 10/09/18 10/09/18 15:13 15:13 15:13 WBC 16.8 H Hgb 15.7 H Hct 46.2 H RDW 12.8 L Plt Count 494 H [place] # Seg Neutrophils % Seg Neuts % (Manual) 74.0 H Monocytes % (Manual) 8.0 H Seg Neutrophils # Seg Neutrophils # Man 12.4 H Monocytes # (Manual) 1.3 H APTT 23.0 L POC ABG pH POC ABG pO2 VBG pH Potassium Chloride Carbon Dioxide BUN Creatinine Glucose Lactic Acid 4.60 H* Ammonia CK-MB (CK-2) CK-MB (CK-2) Rel Index Total Protein Albumin 10/09/18 10/09/18 10/09/18 15:13 15:13 15:13 WBC Hgb Hct RDW Plt Count [place] # Seg Neutrophils % Seg Neuts % (Manual) Monocytes % (Manual) Seg Neutrophils # Seg Neutrophils # Man Monocytes # (Manual) APTT POC ABG pH POC ABG pO2 VBG pH 7.267 L Potassium 5.1 H Chloride 86.4 L Carbon Dioxide 19 L BUN 8 L Creatinine Glucose 128 H Lactic Acid Ammonia CK-MB (CK-2) 8.3 H CK-MB (CK-2) Rel Index 6.3 H Total Protein Albumin 10/09/18 10/09/18 10/09/18 15:23 16:01 18:19 WBC Hgb Hct RDW Plt Count [place] # Seg Neutrophils % Seg Neuts % (Manual) Monocytes % (Manual) Seg Neutrophils # Seg Neutrophils # Man Monocytes # (Manual) APTT POC ABG pH 7.257 L POC ABG pO2 111 H VBG pH Potassium Chloride Carbon Dioxide BUN Creatinine Glucose Lactic Acid 2.80 H* Ammonia 111.0 H CK-MB (CK-2) CK-MB (CK-2) Rel Index Total Protein Albumin 10/09/18 10/10/18 10/10/18 20:05 04:03 04:19 WBC 15.6 H Hgb Hct RDW 12.5 L Plt Count [place] # 1.1 H Seg Neutrophils % 74.8 H Seg Neuts % (Manual) Monocytes % (Manual) Seg Neutrophils # 11.6 H Seg Neutrophils # Man Monocytes # (Manual) APTT POC ABG pH 7.302 L POC ABG pO2 132 H VBG pH Potassium Chloride Carbon Dioxide BUN Creatinine Glucose Lactic Acid 2.20 H* Ammonia CK-MB (CK-2) CK-MB (CK-2) Rel Index Total Protein Albumin 10/10/18 04:19 WBC Hgb Hct RDW Plt Count [place] # Seg Neutrophils % Seg Neuts % (Manual) Monocytes % (Manual) Seg Neutrophils # Seg Neutrophils # Man Monocytes # (Manual) APTT POC ABG pH POC ABG pO2 VBG pH Potassium Chloride Carbon Dioxide 19 L BUN 7 L Creatinine 0.7 L Glucose 118 H Lactic Acid Ammonia CK-MB (CK-2) CK-MB (CK-2) Rel Index Total Protein 6.1 L D Albumin 3.5 L - Diagnostic Findings Chest x-ray: image reviewed (clear, small lung koenig) Assessment and Plan 28 y/o male with known seizures, chronic, admittted with status epilepticus and acute respiratory failure. 1. Await neurology recs 2. No further seizure activity on vent and sedation 3. Will extubate once stable. CCT 31 minutes
--- NOTE | 2018-10-10 14:26 | Progress Note ---
Subjective Date of service: 10/10/18 Interval history: dictated full note patient very well known to me do not believe Transfer to [place] indicated at this point in time based on my intimate knowledge of the history plan blood levels Objective - Vital Sign Vital Signs - 12hr 10/10/18 10/10/18 10/10/18 02:27 02:30 02:45 Temperature 97.8 F Pulse Rate 74 67 Pulse Rate [ From Monitor] Pulse Rate [ None] Respiratory 18 18 Rate Blood Pressure 109/54 101/44 O2 Sat by Pulse 99 98 Oximetry 10/10/18 10/10/18 10/10/18 03:00 03:15 03:30 Temperature Pulse Rate 64 62 62 Pulse Rate [ From Monitor] Pulse Rate [ None] Respiratory 18 18 18 Rate Blood Pressure 94/46 91/43 92/41 O2 Sat by Pulse 99 98 98 Oximetry 10/10/18 10/10/18 10/10/18 03:45 03:50 04:00 Temperature 97.6 F Pulse Rate 58 L 63 Pulse Rate [ From Monitor] Pulse Rate [ 71 None] Respiratory 17 18 18 Rate Blood Pressure 94/46 109/75 104/58 O2 Sat by Pulse 98 100 100 Oximetry 10/10/18 10/10/18 10/10/18 04:15 04:31 04:45 Temperature Pulse Rate 80 81 75 Pulse Rate [ From Monitor] Pulse Rate [ None] Respiratory 16 21 13 Rate Blood Pressure 104/58 115/55 105/44 O2 Sat by Pulse 100 100 100 Oximetry 10/10/18 10/10/18 10/10/18 05:00 05:15 05:30 Temperature Pulse Rate 71 76 75 Pulse Rate [ 71 From Monitor] Pulse Rate [ None] Respiratory 18 18 14 Rate Blood Pressure 105/44 105/44 113/53 O2 Sat by Pulse 98 99 100 Oximetry 10/10/18 10/10/18 10/10/18 05:45 06:00 06:15 Temperature Pulse Rate 86 71 69 Pulse Rate [ From Monitor] Pulse Rate [ None] Respiratory 20 18 18 Rate Blood Pressure 109/58 115/52 104/44 O2 Sat by Pulse 99 99 99 Oximetry 10/10/18 10/10/18 10/10/18 06:30 06:45 07:00 Temperature Pulse Rate 67 65 85 Pulse Rate [ From Monitor] Pulse Rate [ None] Respiratory 16 18 10 L Rate Blood Pressure 96/45 100/52 115/52 O2 Sat by Pulse 99 99 100 Oximetry 10/10/18 10/10/18 10/10/18 07:15 07:30 07:45 Temperature Pulse Rate 96 H 74 78 Pulse Rate [ From Monitor] Pulse Rate [ None] Respiratory 17 18 18 Rate Blood Pressure 115/52 112/52 106/54 O2 Sat by Pulse 100 100 100 Oximetry 10/10/18 10/10/18 10/10/18 08:00 08:15 08:31 Temperature 98.3 F Pulse Rate 85 93 H 81 Pulse Rate [ From Monitor] Pulse Rate [ None] Respiratory 17 14 10 L Rate Blood Pressure 128/67 114/67 103/55 O2 Sat by Pulse 100 91 Oximetry 10/10/18 10/10/18 10/10/18 08:45 08:59 09:00 Temperature Pulse Rate 68 66 66 Pulse Rate [ From Monitor] Pulse Rate [ None] Respiratory 18 18 Rate Blood Pressure 106/55 114/67 111/49 O2 Sat by Pulse 96 96 96 Oximetry 10/10/18 10/10/18 10/10/18 09:15 09:30 09:45 Temperature Pulse Rate 66 65 70 Pulse Rate [ From Monitor] Pulse Rate [ None] Respiratory 18 18 17 Rate Blood Pressure 102/47 107/51 105/36 O2 Sat by Pulse 96 98 Oximetry 10/10/18 10/10/18 10/10/18 10:00 10:15 10:30 Temperature Pulse Rate 75 72 73 Pulse Rate [ From Monitor] Pulse Rate [ None] Respiratory 18 18 19 Rate Blood Pressure 122/61 112/53 117/57 O2 Sat by Pulse 98 98 98 Oximetry 10/10/18 10/10/18 10/10/18 10:45 11:00 11:15 Temperature Pulse Rate 81 86 83 Pulse Rate [ From Monitor] Pulse Rate [ None] Respiratory 15 13 18 Rate Blood Pressure 111/69 111/69 128/65 O2 Sat by Pulse 99 98 98 Oximetry 10/10/18 10/10/18 10/10/18 11:30 11:45 11:58 Temperature Pulse Rate 75 76 76 Pulse Rate [ From Monitor] Pulse Rate [ None] Respiratory 18 18 Rate Blood Pressure 119/56 115/55 O2 Sat by Pulse 98 98 Oximetry 10/10/18 10/10/18 12:00 12:50 Temperature 99.3 F Pulse Rate 72 116 H Pulse Rate [ 72 From Monitor] Pulse Rate [ None] Respiratory 18 Rate Blood Pressure 114/53 117/81 O2 Sat by Pulse 99 100 Oximetry - Laboratory Findings CBC and BMP: 10/10/18 04:19 10/10/18 04:19 Abnormal Lab Findings: Abnormal Labs 10/09/18 10/09/18 10/09/18 15:13 15:13 15:13 WBC 16.8 H Hgb 15.7 H Hct 46.2 H RDW 12.8 L Plt Count 494 H [place] # Seg Neutrophils % Seg Neuts % (Manual) 74.0 H Monocytes % (Manual) 8.0 H Seg Neutrophils # Seg Neutrophils # Man 12.4 H Monocytes # (Manual) 1.3 H APTT 23.0 L POC ABG pH POC ABG pO2 VBG pH Potassium Chloride Carbon Dioxide BUN Creatinine Glucose Lactic Acid 4.60 H* Ammonia CK-MB (CK-2) CK-MB (CK-2) Rel Index Total Protein Albumin 10/09/18 10/09/18 10/09/18 15:13 15:13 15:13 WBC Hgb Hct RDW Plt Count [place] # Seg Neutrophils % Seg Neuts % (Manual) Monocytes % (Manual) Seg Neutrophils # Seg Neutrophils # Man Monocytes # (Manual) APTT POC ABG pH POC ABG pO2 VBG pH 7.267 L Potassium 5.1 H Chloride 86.4 L Carbon Dioxide 19 L BUN 8 L Creatinine Glucose 128 H Lactic Acid Ammonia CK-MB (CK-2) 8.3 H CK-MB (CK-2) Rel Index 6.3 H Total Protein Albumin 10/09/18 10/09/18 10/09/18 15:23 16:01 18:19 WBC Hgb Hct RDW Plt Count [place] # Seg Neutrophils % Seg Neuts % (Manual) Monocytes % (Manual) Seg Neutrophils # Seg Neutrophils # Man Monocytes # (Manual) APTT POC ABG pH 7.257 L POC ABG pO2 111 H VBG pH Potassium Chloride Carbon Dioxide BUN Creatinine Glucose Lactic Acid 2.80 H* Ammonia 111.0 H CK-MB (CK-2) CK-MB (CK-2) Rel Index Total Protein Albumin 10/09/18 10/10/18 10/10/18 20:05 04:03 04:19 WBC 15.6 H Hgb Hct RDW 12.5 L Plt Count [place] # 1.1 H Seg Neutrophils % 74.8 H Seg Neuts % (Manual) Monocytes % (Manual) Seg Neutrophils # 11.6 H Seg Neutrophils # Man Monocytes # (Manual) APTT POC ABG pH 7.302 L POC ABG pO2 132 H VBG pH Potassium Chloride Carbon Dioxide BUN Creatinine Glucose Lactic Acid 2.20 H* Ammonia CK-MB (CK-2) CK-MB (CK-2) Rel Index Total Protein Albumin 10/10/18 04:19 WBC Hgb Hct RDW Plt Count [place] # Seg Neutrophils % Seg Neuts % (Manual) Monocytes % (Manual) Seg Neutrophils # Seg Neutrophils # Man Monocytes # (Manual) APTT POC ABG pH POC ABG pO2 VBG pH Potassium Chloride Carbon Dioxide 19 L BUN 7 L Creatinine 0.7 L Glucose 118 H Lactic Acid Ammonia CK-MB (CK-2) CK-MB (CK-2) Rel Index Total Protein 6.1 L D Albumin 3.5 L
[2018-10-10] MEDS: D5/0.45NS 1,000 ML IV SCH (14:52)
[2018-10-10] MEDS: DILAUDID IV PRN ×2 (16:14→20:19)
--- NOTE | 2018-10-10 18:56 | Event Note ---
Date: 10/10/18 Discussed the case with the facsimile machine operator Dr. Lozada who suggested the possibility of Transferring the patient to [facility]. I discussed his suggestions with the neurologist on the case , who after evaluating the patient and reviewing medical records informed me that there is no indication to transfer the patient as he does not need higher level of care at this point.
--- NOTE | 2018-10-10 22:13 | Consultation ---
HISTORY OF PRESENT ILLNESS: This is a 28-year-old male that is admitted to the Emergency Room at [facility]. The patient is admitted with history of seizures and has been intubated. By history, the patient was brought with impending respiratory failure and was found to have a blood sugar of over 100, had witnessed seizures. His mother was a poor historian. I do remember the mother from previous he has been hospitalized here before. 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 He had been taking Ativan, topiramate and Vimpat as well as Keppra. Reviewing his dosage of medicine, he was taking the Keppra, he was taking topiramate, he was taking Vimpat, he was taking Ativan. His medication list was reviewed entirely and from reviewing his list, I do not think any of his medicines at this point need to be changed as he is on max doses of at least 4 or 5 seizure medicines. 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 He also has a VNS stimulator. I spoke with Dr. Lozada on prior familiar VNS stimulator. There are fixed right stimulator, cannot basically be ramped up to affect any seizures. At best, her supplementary I do not felt to be very effective in this clinical situation. I will keep the patient on fentanyl, do respiratory support. From reviewing his medicines, it probably would help, had a talk to the mother about getting a Keppra blood level as well as a lamotrigine blood level and overall, the prognosis is not good. I went over his CTs from before and since he cannot have an MRI and the seizures are very poorly controlled. JOB# [id number] GHANSHYAM/VALENTIN
[2018-10-10] MEDS ORDERED: QUELICIN ONE (23:00)
[2018-10-10] MEDS ORDERED: VERSED IV ONE (23:00)
[2018-10-10] MEDS ORDERED: AMIDATE IV ONE (23:00)
[2018-10-11] MEDS: SODIUM CHLORIDE FLUSH SYRINGE 10 ML IV SCH ×3 (00:20→22:26)
[2018-10-11] MEDS: LOVENOX SUB-Q SCH ×2 (00:36→22:10)
--- NOTE | 2018-10-11 02:41 | XRay Report ---
PROCEDURE: XR CHEST 1V AP TECHNIQUE: Chest radiograph single view. HISTORY: follow up respiratory failure COMPARISONS: 10/09/2018 . FINDINGS: Heart: Normal. Mediastinum/Vessels: Normal. Lungs/Pleural space: Normal. Bony thorax: No acute osseous abnormality. Life support devices: The endotracheal tube is in the mid trachea. The NG tube is in the upper esopha janette.. IMPRESSION: No acute cardiopulmonary abnormality. The endotracheal tube is in the mid trachea. The NG tube is in the upper esophagus.. This document is electronically signed by Steven Kaba MD., October 11 2018 02:39:32 AM ET
[2018-10-11] MEDS: VANCOMYCIN 2,000 MG in NACL 0.9% 500 ML 500 ML IV SCH ×2 (04:30→16:20)
[2018-10-11] MEDS: ATIVAN 100 MG in NACL 0.9% 50 ML, VIAFLEX EMPTY CONTAINER 0 ML IV SCH (04:31)
[2018-10-11] MEDS: MAXIPIME/NS 2 GM/100 ML 2 GM/100 ML BAG IV SCH (05:02)
[2018-10-11] MEDS: D5/0.45NS 1,000 ML IV SCH ×2 (06:17→18:45)
[2018-10-11] MEDS: DILAUDID IV PRN (08:23)
[2018-10-11 08:49] LABS: Basophils # (Auto) 0.1 K/mm3 (0.0-0.1); Basophils % (Auto) 0.7 % (0.0-1.8); Eosinophils # (Auto) 0.4 K/mm3 (0.0-0.4); Eosinophils % (Auto) 4.1 % (0.0-4.3); Hematocrit 38.2 % (35.5-45.6); Hemoglobin 13.3 gm/dl (11.8-15.2); Lymphocytes # (Auto) 2.5 K/mm3 (1.2-5.4); Lymphocytes % (Auto) 25.8 % (13.4-35.0); Mean Corpuscular HGB Conc 35 % (32-34); Mean Corpuscular Volume 90 fl (84-94); Monocytes % (Auto) 10.6 % (0.0-7.3); Platelet Count 359 K/mm3 (140-440); Red Blood Count 4.25 M/mm3 (3.65-5.03); Red Cell Distribution Width 12.6 % (13.2-15.2)
[2018-10-11 09:36] LABS: BUN/Creatinine Ratio 7; Blood Urea Nitrogen 5 mg/dL (9-20); Calcium 8.6 mg/dL (8.4-10.2); Hemolysis Index 60
[2018-10-11] MEDS: LaMICtal PO SCH ×2 (09:54→22:10)
[2018-10-11] MEDS: TOPAMAX PO SCH ×2 (09:54→22:10)
[2018-10-11] MEDS: KEPPRA 1,500 MG in NACL 0.9% 100 ML IV SCH ×2 (09:55→22:10)
[2018-10-11] MEDS: VIMPAT 200 MG in NACL 0.9% 100 ML IV SCH ×2 (09:55→21:01)
--- NOTE | 2018-10-11 11:36 | Progress Note ---
Assessment and Plan Assessment and plan: --Acute respiratory failure; on mechanical ventilation Pulmonary critical following, wean as tolerated and extubate --Status epilepticus; seizure precautions, continue antiepileptic medications [facility], neurology evaluation and recommendations noted and appreciated No indication for transfer to [place] at this point --H/O vagus nerve stimulator in place --Possible aspiration pneumonia; continue cefepime and Vanco,follow cultures --Metabolic acidosis/lactic acidosis; Significant improvement, continue supportive care --[id number] malnutrition/hypoalbuminemia; nutrition supplements and supportive care,tube feeding --Obesity; BMI 39.5 Patient needs weight reduction when medically stable --DVT prophylaxis; Lovenox Consults and recommendations noted and appreciated Monitor the patient closely and adjust the management as needed Critical care time 31 minutes History Interval history: Patient seen and examined medical records reviewed No new events reported by the nursing staff Remains intubated on ventilatory support No new episodes of seizures Vital signs reviewed Hospitalist Physical - Constitutional Vitals: Temp Pulse Resp BP Pulse Ox 98.1 F 88 19 121/63 97 10/11/18 08:00 10/11/18 11:00 10/11/18 11:00 10/11/18 11:00 10/11/18 11:00 General appearance: Present: no acute distress, other (intubated and sedated, on vent) - EENT Eyes: Present: PERRL, EOM intact - Neck Neck: Present: supple, normal ROM - Respiratory Respiratory effort: normal Respiratory: bilateral: diminished, negative: rales, rhonchi, wheezing - Cardiovascular Rhythm: regular Heart Sounds: Present: S1 & S2 - Extremities Extremities: no ischemia, No edema - Abdominal General gastrointestinal: soft, non-tender, non-distended, normal bowel sounds - Integumentary Integumentary: Present: clear, warm - Psychiatric Psychiatric: other (intubated on vent) - Neurologic Neurologic: other (intubated on vent) Results - Labs CBC & Chem 7: 10/11/18 Unknown 10/11/18 08:26 Labs: Laboratory Last Values WBC 9.8 K/mm3 (4.5-11.0) 10/11/18 Unknown RBC 4.25 M/mm3 (3.65-5.03) 10/11/18 Unknown Hgb 13.3 gm/dl (11.8-15.2) 10/11/18 Unknown Hct 38.2 % (35.5-45.6) 10/11/18 Unknown MCV 90 fl (84-94) 10/11/18 Unknown MCH 31 pg (28-32) 10/11/18 Unknown MCHC 35 % (32-34) H 10/11/18 Unknown RDW 12.6 % (13.2-15.2) L 10/11/18 Unknown Plt Count 359 K/mm3 (140-440) 10/11/18 Unknown Lymph % (Auto) 25.8 % (13.4-35.0) 10/11/18 Unknown [place] % (Auto) 10.6 % (0.0-7.3) H 10/11/18 Unknown Eos % (Auto) 4.1 % (0.0-4.3) 10/11/18 Unknown Baso % (Auto) 0.7 % (0.0-1.8) 10/11/18 Unknown Lymph # 2.5 K/mm3 (1.2-5.4) 10/11/18 Unknown [place] # 1.0 K/mm3 (0.0-0.8) H 10/11/18 Unknown Eos # 0.4 K/mm3 (0.0-0.4) 10/11/18 Unknown Baso # 0.1 K/mm3 (0.0-0.1) 10/11/18 Unknown Add Manual Diff Complete 10/09/18 15:13 Total Counted 100 10/09/18 15:13 Seg Neutrophils % 58.8 % (40.0-70.0) 10/11/18 Unknown Seg Neuts % (Manual) 74.0 % (40.0-70.0) H 10/09/18 15:13 Band Neutrophils % 3.0 % 10/09/18 15:13 Lymphocytes % (Manual) 14.0 % (13.4-35.0) 10/09/18 15:13 Reactive Lymphs % (Man) 0 % 10/09/18 15:13 Monocytes % (Manual) 8.0 % (0.0-7.3) H 10/09/18 15:13 Eosinophils % (Manual) 1.0 % (0.0-4.3) 10/09/18 15:13 Basophils % (Manual) 0 % (0.0-1.8) 10/09/18 15:13 Metamyelocytes % 0 % 10/09/18 15:13 Myelocytes % 0 % 10/09/18 15:13 Promyelocytes % 0 % 10/09/18 15:13 Blast Cells % 0 % 10/09/18 15:13 Nucleated RBC % Not Reportable 10/09/18 15:13 Seg Neutrophils # 5.8 K/mm3 (1.8-7.7) 10/11/18 Unknown Seg Neutrophils # Man 12.4 K/mm3 (1.8-7.7) H 10/09/18 15:13 Band Neutrophils # 0.5 K/mm3 10/09/18 15:13 Lymphocytes # (Manual) 2.4 K/mm3 (1.2-5.4) 10/09/18 15:13 Abs React Lymphs (Man) 0.0 K/mm3 10/09/18 15:13 Monocytes # (Manual) 1.3 K/mm3 (0.0-0.8) H 10/09/18 15:13 Eosinophils # (Manual) 0.2 K/mm3 (0.0-0.4) 10/09/18 15:13 Basophils # (Manual) 0.0 K/mm3 (0.0-0.1) 10/09/18 15:13 Metamyelocytes # 0.0 K/mm3 10/09/18 15:13 Myelocytes # 0.0 K/mm3 10/09/18 15:13 Promyelocytes # 0.0 K/mm3 10/09/18 15:13 Blast Cells # 0.0 K/mm3 10/09/18 15:13 WBC Morphology Not Reportable 10/09/18 15:13 Hypersegmented Neuts Not Reportable 10/09/18 15:13 Hyposegmented Neuts Not Reportable 10/09/18 15:13 Hypogranular Neuts Not Reportable 10/09/18 15:13 Smudge Cells Not Reportable 10/09/18 15:13 Toxic Granulation Not Reportable 10/09/18 15:13 Toxic Vacuolation Not Reportable 10/09/18 15:13 Dohle Bodies Not Reportable 10/09/18 15:13 Pelger-Huet Anomaly Not Reportable 10/09/18 15:13 Nereida Rods Not Reportable 10/09/18 15:13 Platelet Estimate Consistent w auto 10/09/18 15:13 Clumped Platelets Not Reportable 10/09/18 15:13 Plt Clumps, EDTA Not Reportable 10/09/18 15:13 Large Platelets Not Reportable 10/09/18 15:13 Giant Platelets Not Reportable 10/09/18 15:13 Platelet Satelliting Not Reportable 10/09/18 15:13 Plt Morphology Comment Not Reportable 10/09/18 15:13 RBC Morphology Normal 10/09/18 15:13 Dimorphic RBCs Not Reportable 10/09/18 15:13 Polychromasia Not Reportable 10/09/18 15:13 Hypochromasia Not Reportable 10/09/18 15:13 Poikilocytosis Not Reportable 10/09/18 15:13 Anisocytosis Not Reportable 10/09/18 15:13 Microcytosis Not Reportable 10/09/18 15:13 Macrocytosis Not Reportable 10/09/18 15:13 Spherocytes Not Reportable 10/09/18 15:13 Pappenheimer Bodies Not Reportable 10/09/18 15:13 Sickle Cells Not Reportable 10/09/18 15:13 Target Cells Not Reportable 10/09/18 15:13 Tear Drop Cells Not Reportable 10/09/18 15:13 Ovalocytes Not Reportable 10/09/18 15:13 Helmet Cells Not Reportable 10/09/18 15:13 [place] Bodies Not Reportable 10/09/18 15:13 [place] Rings Not Reportable 10/09/18 15:13 Brie Cells Not Reportable 10/09/18 15:13 Bite Cells Not Reportable 10/09/18 15:13 Crenated Cell Not Reportable 10/09/18 15:13 Elliptocytes Not Reportable 10/09/18 15:13 Acanthocytes (Spur) Not Reportable 10/09/18 15:13 Rouleaux Not Reportable 10/09/18 15:13 Hemoglobin C Crystals Not Reportable 10/09/18 15:13 Schistocytes Not Reportable 10/09/18 15:13 Malaria parasites Not Reportable 10/09/18 15:13 Miguel Bodies Not Reportable 10/09/18 15:13 Hem Pathologist Commnt No 10/09/18 15:13 PT 13.4 Sec. (12.2-14.9) 10/09/18 15:13 INR 0.96 (0.87-1.13) 10/09/18 15:13 APTT 23.0 Sec. (24.2-36.6) L 10/09/18 15:13 POC ABG pH 7.389 (7.35-7.45) 10/11/18 04:05 POC ABG pCO2 35.6 (35-45) 10/11/18 04:05 POC ABG pO2 89 (80-105) 10/11/18 04:05 POC ABG HCO3 21.5 (22-26 mml/L) 10/11/18 04:05 POC ABG Total CO2 23 (23-27mmol/L) 10/11/18 04:05 POC ABG O2 Sat 97 10/11/18 04:05 POC ABG Base Excess -3 ((-2) - (+3)mmol/L) 10/11/18 04:05 VBG pH 7.267 (7.320-7.420) L 10/09/18 15:13 FiO2 25 % 10/11/18 04:05 Sodium 142 mmol/L (137-145) 10/11/18 08:26 Potassium 3.9 mmol/L (3.6-5.0) 10/11/18 08:26 Chloride 110.1 mmol/L (98-107) H 10/11/18 08:26 Carbon Dioxide 20 mmol/L (22-30) L 10/11/18 08:26 Anion Gap 16 mmol/L 10/11/18 08:26 BUN 5 mg/dL (9-20) L 10/11/18 08:26 Creatinine 0.7 mg/dL (0.8-1.5) L 10/11/18 08:26 Estimated GFR > 60 ml/min 10/11/18 08:26 BUN/Creatinine Ratio 7 % 10/11/18 08:26 Glucose 112 mg/dL (75-100) H 10/11/18 08:26 POC Glucose 99 (70-105) 10/11/18 10:26 Lactic Acid 1.50 mmol/L (0.7-2.0) 10/10/18 00:56 Calcium 8.6 mg/dL (8.4-10.2) 10/11/18 08:26 Phosphorus 2.90 mg/dL (2.5-4.5) 10/11/18 08:26 Magnesium 1.90 mg/dL (1.7-2.3) 10/11/18 08:26 Total Bilirubin 0.20 mg/dL (0.1-1.2) 10/10/18 04:19 Direct Bilirubin < 0.2 mg/dL (0-0.2) 10/09/18 15:13 Indirect Bilirubin 0.0 mg/dL 10/09/18 15:13 AST 26 units/L (5-40) 10/10/18 04:19 ALT 33 units/L (7-56) 10/10/18 04:19 Alkaline Phosphatase 83 units/L (35-129) 10/10/18 04: Ammonia 111.0 umol/L (25-60) H 10/09/18 15:23 Total Creatine Kinase 131 units/L (55-170) 10/09/18 15:13 CK-MB (CK-2) 8.3 ng/mL (0.0-4.0) H 10/09/18 15:13 CK-MB (CK-2) Rel Index 6.3 (0-4) H 10/09/18 15:13 NT-Pro-B Natriuret Pep 163.1 pg/mL (0-450) 10/09/18 15:13 Total Protein 6.1 g/dL (6.3-8.2) L D 10/10/18 04:19 Albumin 3.5 g/dL (3.9-5) L 10/10/18 04:19 Albumin/Globulin Ratio 1.3 % 10/10/18 04:19 Lipase 24 units/L (13-60) 10/09/18 15:13 Urine Color Straw (Yellow) 10/09/18 Unknown Urine Turbidity Clear (Clear) 10/09/18 Unknown Urine pH 7.0 (5.0-7.0) 10/09/18 Unknown Ur Specific [place] 1.006 (1.003-1.030) 10/09/18 Unknown Urine Protein <15 mg/dl mg/dL (Negative) 10/09/18 Unknown Urine Glucose (UA) Neg mg/dL (Negative) 10/09/18 Unknown Urine Ketones Neg mg/dL (Negative) 10/09/18 Unknown Urine Blood Neg (Negative) 10/09/18 Unknown Urine Nitrite Neg (Negative) 10/09/18 Unknown Urine Bilirubin Neg (Negative) 10/09/18 Unknown Urine Urobilinogen < 2.0 mg/dL (<2.0) 10/09/18 Unknown Ur Leukocyte Esterase Neg (Negative) 10/09/18 Unknown Urine WBC (Auto) 0.0 /HPF (0.0-6.0) 10/09/18 Unknown Urine RBC (Auto) < 1.0 /HPF (0.0-6.0) 10/09/18 Unknown U Epithel Cells (Auto) < 1.0 /HPF (0-13.0) 10/09/18 Unknown Active Medications - Current Medications Current Medications: Generic Name Dose Route Start Last Admin Trade Name Freq PRN Reason Stop Dose Admin Lipase/Protease/Amylase 1 each 10/10/18 09:[address] 10,500 Unit FEEDTUBE PRN PRN For Clogged Feeding Tube Enoxaparin Sodium 40 mg 10/10/18 22:00 10/11/18 00:36 Lovenox SUB-Q 40 mg QDAY@2200 SILVANA Administration Fentanyl 50 mcg 10/09/18 18:57 Sublimaze IV Q10MIN PRN ANALGESIA Hydromorphone HCl 0.5 mg 10/09/18 20:54 10/11/18 08:23 Dilaudid IV 0.5 mg Q3H PRN Administration Pain , Severe (7-10) Hydrophilic Ointment 1 applic 10/09/18 14:49 Vaseline Lip Therapy TP Q2HR PRN Dry Lips Lorazepam 100 mg/ Sodium 100 mls @ 1 mls/hr 10/09/18 15:00 10/11/18 04:31 Chloride/ Miscellaneous IV 0.5 mg/hr Information TITR SILVANA 0.5 mls/hr Administration Protocol 1 MG/HR Vancomycin HCl 2,000 mg/ 540 mls @ 250 mls/hr 10/10/18 04:00 10/11/18 04:30 Sodium Chloride IV 250 mls/hr Q12H SILVANA Administration Fentanyl Citrate 2,000 mcg in 100 mls @ 5.897 mls/hr 10/09/18 19:00 10/10/18 10:12 Fentanyl Drip Premix IV 0 mcg/kg/hr TITR SILVANA 0 mls/hr Titration Protocol 1 MCG/KG/HR Dextrose/Sodium Chloride 1,000 mls @ 75 mls/hr 10/09/18 21:00 10/11/18 06:17 D5/0.45ns IV 75 mls/hr DIRECT SILVANA Administration Lacosamide 200 mg/ Sodium 120 mls @ 100 mls/hr 10/09/18 22:00 10/11/18 09:55 Chloride IV 100 mls/hr Q12H SILVANA Administration Cefepime HCl 2 gm in 100 mls @ 200 mls/hr 10/09/18 22:00 10/11/18 05:02 Maxipime/Ns 2 Gm/100 Ml IV 200 mls/hr Q8HR SILVANA Administration Protocol Levetiracetam 1,500 mg/ Sodium 115 mls @ 400 mls/hr 10/10/18 10:00 10/11/18 09:55 Chloride IV 400 mls/hr Q12HR SILVANA Administration Lamotrigine 300 mg 10/09/18 22:00 10/11/18 09:54 Lamictal PO 300 mg BID SILVANA Administration Lorazepam 2 mg 10/09/18 14:49 10/10/18 05:42 Ativan IV 2 mg Q10MIN PRN Administration Agitation Metoclopramide HCl 10 mg 10/09/18 20:54 Reglan IV Q6H PRN Nausea And Vomiting Multi-Ingred Cream/Lotion/Oil/Oint 1 applic 10/09/18 14:49 Artificial Tears Ophth Oint OU Q4HR PRN Dry Eye(s) Ondansetron HCl 4 mg 10/09/18 20:54 Zofran IV Q8H PRN Nausea And Vomiting Simple Syrup 15 ml 10/09/18 20:54 Simple Syrup FEEDTUBE PRN PRN Hypoglycemia Simple Syrup 30 ml 10/09/18 20:54 Simple Syrup FEEDTUBE PRN PRN Hypoglycemia Sodium Bicarbonate 325 mg 10/10/18 09:39 Sodium Bicarbonate FEEDTUBE PRN PRN For Clogged Feeding Tube Sodium Chloride 10 ml 10/09/18 22:00 10/11/18 00:20 Sodium Chloride Flush Syringe 10 Ml IV Not Given BID SILVANA Sodium Chloride 10 ml 10/09/18 20:54 10/10/18 16:16 Sodium Chloride Flush Syringe 10 Ml IV 10 ml PRN PRN Administration LINE FLUSH Topiramate 50 mg 10/09/18 22:00 10/11/18 09:54 Topamax PO 50 mg Q12HR SILVANA Administration Trazodone HCl 50 mg 10/10/18 18:00 Desyrel PO QPM SILVANA Nutrition/Malnutrition Assess - Dietary Evaluation Nutrition/Malnutrition Findings: Nutrition Notes Start: 10/10/18 07:56 Freq: Status: Active Protocol: Document 10/10/18 07:56 LP (Rec: 10/10/18 08:03 LP [id number]) Nutrition Notes Need for Assessment generated from: MD Order Initial or Follow up Assessment Current Diagnosis Sepsis,Respiratory Failure, Stroke Other Pertinent Diagnosis dementia, seizures, pneu Current Diet NPO Labs/Tests Reviewed Pertinent Medications D5 1/2 NS at 75ml/hr Height 5 ft 8 in Weight 117.934 kg [place] Body Weight (kg) 70.00 BMI 39.5 Subjective/Other Information Consult for TF. Pt on vent. Burn Absent Trauma Absent #1 Nutrition Diagnosis Inadequate oral intake Etiology vent As Evidenced by Signs and Symptoms Pt unable to consume PO Is patient on ventilator? Yes Is Patient Ambulatory and/or Out of Bed No REE-([facility]-confined to bed) 2561.688 Kcal/Kg value to use for calculation 17 Approximate Energy Requirements Using 2005 kcal/Kg Calculation Used for Recommendations Kcal/kg Additional Notes Protein needs are 140g (2g/kg) Fluid needs are 1ml/kcal Nutrition Intervention Change Diet Order: TF Nutrition Support: Promote at 80ml/hr Flush with 50ml q4h Kcal 1,920 Protein (gm) 120 Fluid (mL) 1,611 Goal #1 Meet at least 80% of kcal and protein needs via TF Anticipated Discharge Needs: Unable to determine at this time Follow-Up By: 10/12/18 Additional Comments Follow for TF start/tolerance
--- NOTE | 2018-10-11 12:07 | Progress Note ---
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 out of question comments on VNS stimulator are documented Objective - Vital Sign Vital Signs - 12hr 10/11/18 10/11/18 10/11/18 00:07 00:15 00:31 Temperature Pulse Rate 89 104 H 102 H Pulse Rate [ From Monitor] Respiratory 18 16 21 Rate Respiratory Rate [ARIK] Blood Pressure 105/63 105/63 133/67 O2 Sat by Pulse 99 99 98 Oximetry 10/11/18 10/11/18 10/11/18 00:45 01:00 01:15 Temperature Pulse Rate 104 H 101 H 118 H Pulse Rate [ From Monitor] Respiratory 21 21 25 H Rate Respiratory Rate [ARIK] Blood Pressure 140/71 133/65 133/65 O2 Sat by Pulse 98 97 98 Oximetry 10/11/18 10/11/18 10/11/18 01:31 01:45 02:00 Temperature Pulse Rate 87 91 H 93 H Pulse Rate [ From Monitor] Respiratory 18 20 23 Rate Respiratory Rate [ARIK] Blood Pressure 117/56 124/62 124/62 O2 Sat by Pulse 98 99 99 Oximetry 10/11/18 10/11/18 10/11/18 02:15 02:30 02:45 Temperature Pulse Rate 101 H 98 H 99 H Pulse Rate [ From Monitor] Respiratory 17 22 22 Rate Respiratory Rate [ARIK] Blood Pressure 109/67 129/69 134/74 O2 Sat by Pulse 99 97 98 Oximetry 10/11/18 10/11/18 10/11/18 03:00 03:15 03:31 Temperature Pulse Rate 101 H 97 H 82 Pulse Rate [ From Monitor] Respiratory 20 20 18 Rate Respiratory Rate [ARIK] Blood Pressure 134/72 135/76 115/58 O2 Sat by Pulse 95 96 95 Oximetry 10/11/18 10/11/18 10/11/18 03:45 03:58 04:00 Temperature 98.7 F Pulse Rate 91 H 99 H Pulse Rate [ From Monitor] Respiratory 18 23 Rate Respiratory Rate [ARIK] Blood Pressure 126/65 126/65 O2 Sat by Pulse 97 98 98 Oximetry 10/11/18 10/11/18 10/11/18 04:01 04:15 04:30 Temperature Pulse Rate 97 H 88 95 H Pulse Rate [ From Monitor] Respiratory 22 18 24 Rate Respiratory Rate [ARIK] Blood Pressure 138/78 128/66 127/75 O2 Sat by Pulse 99 98 100 Oximetry 10/11/18 10/11/18 10/11/18 04:45 05:00 05:15 Temperature Pulse Rate 96 H 99 H 80 Pulse Rate [ From Monitor] Respiratory 23 25 H 18 Rate Respiratory Rate [ARIK] Blood Pressure 127/75 132/65 132/65 O2 Sat by Pulse 99 99 98 Oximetry 10/11/18 10/11/18 10/11/18 05:31 05:45 06:01 Temperature Pulse Rate 80 77 71 Pulse Rate [ From Monitor] Respiratory 18 18 18 Rate Respiratory Rate [ARIK] Blood Pressure 132/65 132/65 105/48 O2 Sat by Pulse 98 96 99 Oximetry 10/11/18 10/11/18 10/11/18 06:15 06:31 06:45 Temperature Pulse Rate 70 93 H 96 H Pulse Rate [ From Monitor] Respiratory 18 19 17 Rate Respiratory Rate [ARIK] Blood Pressure 105/48 105/48 105/48 O2 Sat by Pulse 97 98 97 Oximetry 10/11/18 10/11/18 10/11/18 07:00 07:15 07:31 Temperature Pulse Rate 81 82 85 Pulse Rate [ From Monitor] Respiratory 19 18 19 Rate Respiratory Rate [ARIK] Blood Pressure 122/58 122/58 122/58 O2 Sat by Pulse 97 100 100 Oximetry 10/11/18 10/11/18 10/11/18 07:45 08:00 08:15 Temperature 98.1 F Pulse Rate 90 92 H 94 H Pulse Rate [ 97 H From Monitor] Respiratory 18 16 23 Rate Respiratory Rate [ARIK] Blood Pressure 122/58 117/68 117/68 O2 Sat by Pulse 100 99 98 Oximetry 10/11/18 10/11/18 10/11/18 08:30 08:31 08:45 Temperature Pulse Rate 83 94 H 81 Pulse Rate [ From Monitor] Respiratory 19 18 Rate Respiratory Rate [ARIK] Blood Pressure 117/68 117/68 117/68 O2 Sat by Pulse 97 97 97 Oximetry 10/11/18 10/11/18 10/11/18 09:00 09:15 09:30 Temperature Pulse Rate 74 69 75 Pulse Rate [ From Monitor] Respiratory 18 18 18 Rate Respiratory Rate [ARIK] Blood Pressure 110/52 110/52 110/52 O2 Sat by Pulse 98 97 96 Oximetry 10/11/18 10/11/18 10/11/18 09:45 10:00 10:15 Temperature Pulse Rate 68 86 61 Pulse Rate [ From Monitor] Respiratory 18 18 18 Rate Respiratory 18 Rate [ARIK] Blood Pressure 110/52 99/40 110/52 O2 Sat by Pulse 97 98 98 Oximetry 10/11/18 10/11/18 10/11/18 10:31 10:45 11:00 Temperature Pulse Rate 79 72 88 Pulse Rate [ From Monitor] Respiratory 22 18 19 Rate Respiratory Rate [ARIK] Blood Pressure 110/52 110/52 121/63 O2 Sat by Pulse 100 99 97 Oximetry 10/11/18 11:47 Temperature Pulse Rate 88 Pulse Rate [ From Monitor] Respiratory 3 L Rate Respiratory Rate [ARIK] Blood Pressure 121/63 O2 Sat by Pulse 100 Oximetry - Laboratory Findings CBC and BMP: 10/11/18 Unknown 10/11/18 08:26 Abnormal Lab Findings: Abnormal Labs 10/09/18 10/09/18 10/09/18 15:13 15:13 15:13 WBC 16.8 H Hgb 15.7 H Hct 46.2 H MCHC RDW 12.8 L Plt Count 494 H Storey % (Auto) Storey # Seg Neutrophils % Seg Neuts % (Manual) 74.0 H Monocytes % (Manual) 8.0 H Seg Neutrophils # Seg Neutrophils # Man 12.4 H Monocytes # (Manual) 1.3 H APTT 23.0 L POC ABG pH POC ABG pO2 VBG pH Potassium Chloride Carbon Dioxide BUN Creatinine Glucose POC Glucose Lactic Acid 4.60 H* Ammonia CK-MB (CK-2) CK-MB (CK-2) Rel Index Total Protein Albumin 10/09/18 10/09/18 10/09/18 15:13 15:13 15:13 WBC Hgb Hct MCHC RDW Plt Count Storey % (Auto) Storey # Seg Neutrophils % Seg Neuts % (Manual) Monocytes % (Manual) Seg Neutrophils # Seg Neutrophils # Man Monocytes # (Manual) APTT POC ABG pH POC ABG pO2 VBG pH 7.267 L Potassium 5.1 H Chloride 86.4 L Carbon Dioxide 19 L BUN 8 L Creatinine Glucose 128 H POC Glucose Lactic Acid Ammonia CK-MB (CK-2) 8.3 H CK-MB (CK-2) Rel Index 6.3 H Total Protein Albumin 10/09/18 10/09/18 10/09/18 15:23 16:01 18:19 WBC Hgb Hct MCHC RDW Plt Count Storey % (Auto) Storey # Seg Neutrophils % Seg Neuts % (Manual) Monocytes % (Manual) Seg Neutrophils # Seg Neutrophils # Man Monocytes # (Manual) APTT POC ABG pH 7.257 L POC ABG pO2 111 H VBG pH Potassium Chloride Carbon Dioxide BUN Creatinine Glucose POC Glucose Lactic Acid 2.80 H* Ammonia 111.0 H CK-MB (CK-2) CK-MB (CK-2) Rel Index Total Protein Albumin 10/09/18 10/10/18 10/10/18 20:05 04:03 04:19 WBC 15.6 H Hgb Hct MCHC RDW 12.5 L Plt Count Storey % (Auto) Storey # 1.1 H Seg Neutrophils % 74.8 H Seg Neuts % (Manual) Monocytes % (Manual) Seg Neutrophils # 11.6 H Seg Neutrophils # Man Monocytes # (Manual) APTT POC ABG pH 7.302 L POC ABG pO2 132 H VBG pH Potassium Chloride Carbon Dioxide BUN Creatinine Glucose POC Glucose Lactic Acid 2.20 H* Ammonia CK-MB (CK-2) CK-MB (CK-2) Rel Index Total Protein Albumin 10/10/18 10/10/18 10/11/18 04:19 17:53 08:26 WBC Hgb Hct MCHC RDW Plt Count Storey % (Auto) Storey # Seg Neutrophils % Seg Neuts % (Manual) Monocytes % (Manual) Seg Neutrophils # Seg Neutrophils # Man Monocytes # (Manual) APTT POC ABG pH POC ABG pO2 VBG pH Potassium Chloride 110.1 H Carbon Dioxide 19 L 20 L BUN 7 L 5 L Creatinine 0.7 L 0.7 L Glucose 118 H 112 H POC Glucose 106 H Lactic Acid Ammonia CK-MB (CK-2) CK-MB (CK-2) Rel Index Total Protein 6.1 L D Albumin 3.5 L 10/11/18 Unknown WBC Hgb Hct MCHC 35 H RDW 12.6 L Plt Count Storey % (Auto) 10.6 H Storey # 1.0 H Seg Neutrophils % Seg Neuts % (Manual) Monocytes % (Manual) Seg Neutrophils # Seg Neutrophils # Man Monocytes # (Manual) APTT POC ABG pH POC ABG pO2 VBG pH Potassium Chloride Carbon Dioxide BUN Creatinine Glucose POC Glucose Lactic Acid Ammonia CK-MB (CK-2) CK-MB (CK-2) Rel Index Total Protein Albumin
--- NOTE | 2018-10-11 12:30 | Progress Note ---
Assessment and Plan 28 y/o male with known seizures, chronic, admittted with status epilepticus and acute respiratory failure. 1. neurology does not feel VNS needs to be interrogated so therefore they do not feel transfer is appropriate. They also feel the patient will never have adequate seizure control. 2. Asked nursing to stop sedation and coordinate with RT for extubation. 3. Watch in the ICU overnight once extubated 4. Likely stable for transfer out tomorrow if above outlined plan has not flaws. CCT 31 minutes Subjective Date of service: 10/11/18 Interval history: patient awake and following commands. No family at bedside. Currently on Ativan at 0.5. No seizure activity noted. Remainder is negative. Reviewed neurology evaluation. Objective Vital Signs - 12hr 10/11/18 10/11/18 10/11/18 00:31 00:45 01:00 Temperature Pulse Rate 102 H 104 H 101 H Pulse Rate [ From Monitor] Respiratory 21 21 21 Rate Respiratory Rate [ARIK] Blood Pressure 133/67 140/71 133/65 O2 Sat by Pulse 98 98 97 Oximetry 10/11/18 10/11/18 10/11/18 01:15 01:31 01:45 Temperature Pulse Rate 118 H 87 91 H Pulse Rate [ From Monitor] Respiratory 25 H 18 20 Rate Respiratory Rate [ARIK] Blood Pressure 133/65 117/56 124/62 O2 Sat by Pulse 98 98 99 Oximetry 10/11/18 10/11/18 10/11/18 02:00 02:15 02:30 Temperature Pulse Rate 93 H 101 H 98 H Pulse Rate [ From Monitor] Respiratory 23 17 22 Rate Respiratory Rate [ARIK] Blood Pressure 124/62 109/67 129/69 O2 Sat by Pulse 99 99 97 Oximetry 10/11/18 10/11/18 10/11/18 02:45 03:00 03:15 Temperature Pulse Rate 99 H 101 H 97 H Pulse Rate [ From Monitor] Respiratory 22 20 20 Rate Respiratory Rate [ARIK] Blood Pressure 134/74 134/72 135/76 O2 Sat by Pulse 98 95 96 Oximetry 10/11/18 10/11/18 10/11/18 03:31 03:45 03:58 Temperature Pulse Rate 82 91 H 99 H Pulse Rate [ From Monitor] Respiratory 18 18 Rate Respiratory Rate [ARIK] Blood Pressure 115/58 126/65 126/65 O2 Sat by Pulse 95 97 98 Oximetry 10/11/18 10/11/18 10/11/18 04:00 04:01 04:15 Temperature 98.7 F Pulse Rate 97 H 88 Pulse Rate [ From Monitor] Respiratory 23 22 18 Rate Respiratory Rate [ARIK] Blood Pressure 138/78 128/66 O2 Sat by Pulse 98 99 98 Oximetry 10/11/18 10/11/18 10/11/18 04:30 04:45 05:00 Temperature Pulse Rate 95 H 96 H 99 H Pulse Rate [ From Monitor] Respiratory 24 23 25 H Rate Respiratory Rate [ARIK] Blood Pressure 127/75 127/75 132/65 O2 Sat by Pulse 100 99 99 Oximetry 10/11/18 10/11/18 10/11/18 05:15 05:31 05:45 Temperature Pulse Rate 80 80 77 Pulse Rate [ From Monitor] Respiratory 18 18 18 Rate Respiratory Rate [ARIK] Blood Pressure 132/65 132/65 132/65 O2 Sat by Pulse 98 98 96 Oximetry 10/11/18 10/11/18 10/11/18 06:01 06:15 06:31 Temperature Pulse Rate 71 70 93 H Pulse Rate [ From Monitor] Respiratory 18 18 19 Rate Respiratory Rate [ARIK] Blood Pressure 105/48 105/48 105/48 O2 Sat by Pulse 99 97 98 Oximetry 10/11/18 10/11/18 10/11/18 06:45 07:00 07:15 Temperature Pulse Rate 96 H 81 82 Pulse Rate [ From Monitor] Respiratory 17 19 18 Rate Respiratory Rate [ARIK] Blood Pressure 105/48 122/58 122/58 O2 Sat by Pulse 97 97 100 Oximetry 10/11/18 10/11/18 10/11/18 07:31 07:45 08:00 Temperature 98.1 F Pulse Rate 85 90 92 H Pulse Rate [ 97 H From Monitor] Respiratory 19 18 16 Rate Respiratory Rate [ARIK] Blood Pressure 122/58 122/58 117/68 O2 Sat by Pulse 100 100 99 Oximetry 10/11/18 10/11/18 10/11/18 08:15 08:30 08:31 Temperature Pulse Rate 94 H 83 94 H Pulse Rate [ From Monitor] Respiratory 23 19 Rate Respiratory Rate [ARIK] Blood Pressure 117/68 117/68 117/68 O2 Sat by Pulse 98 97 97 Oximetry 10/11/18 10/11/18 10/11/18 08:45 09:00 09:15 Temperature Pulse Rate 81 74 69 Pulse Rate [ From Monitor] Respiratory 18 18 18 Rate Respiratory Rate [ARIK] Blood Pressure 117/68 110/52 110/52 O2 Sat by Pulse 97 98 97 Oximetry 10/11/18 10/11/18 10/11/18 09:30 09:45 10:00 Temperature Pulse Rate 75 68 86 Pulse Rate [ From Monitor] Respiratory 18 18 18 Rate Respiratory 18 Rate [ARIK] Blood Pressure 110/52 110/52 99/40 O2 Sat by Pulse 96 97 98 Oximetry 10/11/18 10/11/18 10/11/18 10:15 10:31 10:45 Temperature Pulse Rate 61 79 72 Pulse Rate [ From Monitor] Respiratory 18 22 18 Rate Respiratory Rate [ARIK] Blood Pressure 110/52 110/52 110/52 O2 Sat by Pulse 98 100 99 Oximetry 10/11/18 10/11/18 11:00 11:47 Temperature Pulse Rate 88 88 Pulse Rate [ From Monitor] Respiratory 19 3 L Rate Respiratory Rate [ARIK] Blood Pressure 121/63 121/63 O2 Sat by Pulse 97 100 Oximetry Constitutional: other (orally intubated and sedated) Eyes: non-icteric ENT: other (orally intubated) Neck: supple Effort: normal Ascultation: Bilateral: clear Percussion: Bilateral: not dull Cardiovascular: regular rate and rhythm Gastrointestinal: normoactive bowel sounds, soft Integumentary: normal Extremities: no cyanosis, no edema, pink and warm CBC and BMP: 10/11/18 Unknown 10/11/18 08:26 ABG, PT/INR, D-dimer: ABG POC ABG pH 7.389 (7.35-7.45) 10/11/18 04:05 POC ABG pCO2 35.6 (35-45) 10/11/18 04:05 POC ABG pO2 89 (80-105) 10/11/18 04:05 POC ABG HCO3 21.5 (22-26 mml/L) 10/11/18 04:05 POC ABG Total CO2 23 (23-27mmol/L) 10/11/18 04:05 POC ABG O2 Sat 97 10/11/18 04:05 PT/INR, D-dimer PT 13.4 Sec. (12.2-14.9) 10/09/18 15:13 INR 0.96 (0.87-1.13) 10/09/18 15:13 Abnormal lab findings: Abnormal Labs 10/09/18 10/09/18 10/09/18 15:13 15:13 15:13 WBC 16.8 H Hgb 15.7 H Hct 46.2 H MCHC RDW 12.8 L Plt Count 494 H Terrell % (Auto) Terrell # Seg Neutrophils % Seg Neuts % (Manual) 74.0 H Monocytes % (Manual) 8.0 H Seg Neutrophils # Seg Neutrophils # Man 12.4 H Monocytes # (Manual) 1.3 H APTT 23.0 L POC ABG pH POC ABG pO2 VBG pH Potassium Chloride Carbon Dioxide BUN Creatinine Glucose POC Glucose Lactic Acid 4.60 H* Ammonia CK-MB (CK-2) CK-MB (CK-2) Rel Index Total Protein Albumin 10/09/18 10/09/18 10/09/18 15:13 15:13 15:13 WBC Hgb Hct MCHC RDW Plt Count Terrell % (Auto) Terrell # Seg Neutrophils % Seg Neuts % (Manual) Monocytes % (Manual) Seg Neutrophils # Seg Neutrophils # Man Monocytes # (Manual) APTT POC ABG pH POC ABG pO2 VBG pH 7.267 L Potassium 5.1 H Chloride 86.4 L Carbon Dioxide 19 L BUN 8 L Creatinine Glucose 128 H POC Glucose Lactic Acid Ammonia CK-MB (CK-2) 8.3 H CK-MB (CK-2) Rel Index 6.3 H Total Protein Albumin 10/09/18 10/09/18 10/09/18 15:23 16:01 18:19 WBC Hgb Hct MCHC RDW Plt Count [place]rell % (Auto) Terrell # Seg Neutrophils % Seg Neuts % (Manual) Monocytes % (Manual) Seg Neutrophils # Seg Neutrophils # Man Monocytes # (Manual) APTT POC ABG pH 7.257 L POC ABG pO2 111 H VBG pH Potassium Chloride Carbon Dioxide BUN Creatinine Glucose POC Glucose Lactic Acid 2.80 H* Ammonia 111.0 H CK-MB (CK-2) CK-MB (CK-2) Rel Index Total Protein Albumin 10/09/18 10/10/18 10/10/18 20:05 04:03 04:19 WBC 15.6 H Hgb Hct MCHC RDW 12.5 L Plt Count Terrell % (Auto) Terrell # 1.1 H Seg Neutrophils % 74.8 H Seg Neuts % (Manual) Monocytes % (Manual) Seg Neutrophils # 11.6 H Seg Neutrophils # Man Monocytes # (Manual) APTT POC ABG pH 7.302 L POC ABG pO2 132 H VBG pH Potassium Chloride Carbon Dioxide BUN Creatinine Glucose POC Glucose Lactic Acid 2.20 H* Ammonia CK-MB (CK-2) CK-MB (CK-2) Rel Index Total Protein Albumin 10/10/18 10/10/18 10/11/18 04:19 17:53 08:26 WBC Hgb Hct MCHC RDW Plt Count [place] % (Auto) [place] # Seg Neutrophils % Seg Neuts % (Manual) Monocytes % (Manual) Seg Neutrophils # Seg Neutrophils # Man Monocytes # (Manual) APTT POC ABG pH POC ABG pO2 VBG pH Potassium Chloride 110.1 H Carbon Dioxide 19 L 20 L BUN 7 L 5 L Creatinine 0.7 L 0.7 L Glucose 118 H 112 H POC Glucose 106 H Lactic Acid Ammonia CK-MB (CK-2) CK-MB (CK-2) Rel Index Total Protein 6.1 L D Albumin 3.5 L 10/11/18 Unknown WBC Hgb Hct MCHC 35 H RDW 12.6 L Plt Count [place]rell % (Auto) 10.6 H Terrell # 1.0 H Seg Neutrophils % Seg Neuts % (Manual) Monocytes % (Manual) Seg Neutrophils # Seg Neutrophils # Man Monocytes # (Manual) APTT POC ABG pH POC ABG pO2 VBG pH Potassium Chloride Carbon Dioxide BUN Creatinine Glucose POC Glucose Lactic Acid Ammonia CK-MB (CK-2) CK-MB (CK-2) Rel Index Total Protein Albumin
[2018-10-11] MEDS ORDERED: ATIVAN IV PRN (12:34)
[2018-10-11] MEDS: DESYREL PO SCH (18:35)
--- NOTE | 2018-10-12 02:53 | XRay Report ---
PROCEDURE: XR CHEST 1V AP TECHNIQUE: Chest radiograph single view. HISTORY: follow up respiratory failure COMPARISONS: October 11, 2018 . FINDINGS: Heart: Normal. Mediastinum/Vessels: There is a battery in the left chest wall. Lungs/Pleural space: Normal. Bony thorax: No acute osseous abnormality. Life support devices: None. IMPRESSION: No acute cardiopulmonary abnormality. This document is electronically signed by Alexa Granger DO., October 12 2018 02:51:30 AM ET
[2018-10-12] MEDS: VANCOMYCIN 2,000 MG in NACL 0.9% 500 ML 500 ML IV SCH (03:31)
[2018-10-12 06:47] LABS: Hematocrit 36.2 % (35.5-45.6); Hemoglobin 12.5 gm/dl (11.8-15.2); Mean Corpuscular HGB Conc 34 % (32-34); Mean Corpuscular Volume 90 fl (84-94); Mean Platelet Volume 7.4 fl (6-12); Platelet Count 355 K/mm3 (140-440); Red Blood Count 4.03 M/mm3 (3.65-5.03); Red Cell Distribution Width 12.3 % (13.2-15.2)
[2018-10-12 06:48] LABS: Basophils # (Auto) 0.1 K/mm3 (0.0-0.1); Basophils % (Auto) 0.6 % (0.0-1.8); Eosinophils # (Auto) 0.5 K/mm3 (0.0-0.4); Lymphocytes # (Auto) 3.2 K/mm3 (1.2-5.4); Lymphocytes % (Auto) 37.9 % (13.4-35.0); Monocytes # (Auto) 0.9 K/mm3 (0.0-0.8); Monocytes % (Auto) 10.4 % (0.0-7.3)
[2018-10-12 07:05] LABS: BUN/Creatinine Ratio 6; Blood Urea Nitrogen 4 mg/dL (9-20); Calcium 8.4 mg/dL (8.4-10.2); Hemolysis Index 16
[2018-10-12] MEDS ORDERED: K-DUR PO ONE ×2 (07:20→08:00)
--- NOTE | 2018-10-12 07:28 | Progress Note ---
Assessment and Plan Assessment and plan: --Acute respiratory failure; requiring intubation s/p extubation yesterday, saturating well on 3 L nasal cannula oxygen Pulmonary following, supportive care --Status epilepticus; seizure precautions, continue antiepileptic medications Ativan, neurology following, patient has VNS in place --Hypokalemia; replace with KCl, monitor levels --Possible aspiration pneumonia; on cefepime and Vanco D4, complete 5 days and DC tomorrow Cultures negative to date, chest x-ray no infiltrate --Metabolic acidosis/lactic acidosis; Significant improvement, continue supportive care --[id number] malnutrition/hypoalbuminemia; nutrition supplements and supportive care, --Obesity; BMI 39.5 Patient needs weight reduction when medically stable --DVT prophylaxis; Lovenox --Physical therapy/DC planning possible home with home health Consults and recommendations noted and appreciated Monitor the patient closely and adjust the management as needed Critical care time 31 minutes Patient is stable to be transferred out of ICU to telemetry If okay with quality specialist History Interval history: Patient seen and examined medical records reviewed Admitted with status epilepticus, extubated yesterday Patient feels better, no new episodes of seizure Vital signs reviewed Hospitalist Physical - Constitutional Vitals: Temp Pulse Resp BP Pulse Ox 98.4 F 78 14 106/55 100 10/12/18 03:01 10/12/18 07:01 10/12/18 07:01 10/12/18 07:01 10/12/18 07:01 General appearance: Present: no acute distress, well-nourished, other (extubated, on nasal cannula oxygen) - EENT Eyes: Present: PERRL, EOM intact - Neck Neck: Present: supple, normal ROM - Respiratory Respiratory effort: normal Respiratory: bilateral: diminished, negative: rales, rhonchi, wheezing - Cardiovascular Rhythm: regular Heart Sounds: Present: S1 & S2 - Extremities Extremities: no ischemia, No edema - Abdominal General gastrointestinal: soft, non-tender, non-distended, normal bowel sounds - Integumentary Integumentary: Present: clear, warm - Psychiatric Psychiatric: appropriate mood/affect, cooperative - Neurologic Neurologic: moves all extremities Results - Labs CBC & Chem 7: 10/12/18 06:29 10/12/18 06:29 Labs: Laboratory Last Values WBC 8.5 K/mm3 (4.5-11.0) 10/12/18 06: RBC 4.03 M/mm3 (3.65-5.03) 10/12/18 06: Hgb 12.5 gm/dl (11.8-15.2) 10/12/18 06: Hct 36.2 % (35.5-45.6) 10/12/18 06: MCV 90 fl (84-94) 10/12/18 06: MCH 31 pg (28-32) 10/12/18 06: MCHC 34 % (32-34) 10/12/18 06: RDW 12.3 % (13.2-15.2) L 10/12/18 06: Plt Count 355 K/mm3 (140-440) 10/12/18 06: Lymph % (Auto) 37.9 % (13.4-35.0) H 10/12/18 06: [place] % (Auto) 10.4 % (0.0-7.3) H 10/12/18 06: Eos % (Auto) 6.0 % (0.0-4.3) H 10/12/18 06: Baso % (Auto) 0.6 % (0.0-1.8) 10/12/18 06: Lymph # 3.2 K/mm3 (1.2-5.4) 10/12/18 06: [place] # 0.9 K/mm3 (0.0-0.8) H 10/12/18 06: Eos # 0.5 K/mm3 (0.0-0.4) H 10/12/18 06:29 Baso # 0.1 K/mm3 (0.0-0.1) 10/12/18 06:29 Add Manual Diff Complete 10/09/18 15:13 Total Counted 100 10/09/18 15:13 Seg Neutrophils % 45.1 % (40.0-70.0) 10/12/18 06: Seg Neuts % (Manual) 74.0 % (40.0-70.0) H 10/09/18 15:13 Band Neutrophils % 3.0 % 10/09/18 15:13 Lymphocytes % (Manual) 14.0 % (13.4-35.0) 10/09/18 15:13 Reactive Lymphs % (Man) 0 % 10/09/18 15:13 Monocytes % (Manual) 8.0 % (0.0-7.3) H 10/09/18 15:13 Eosinophils % (Manual) 1.0 % (0.0-4.3) 10/09/18 15:13 Basophils % (Manual) 0 % (0.0-1.8) 10/09/18 15:13 Metamyelocytes % 0 % 10/09/18 15:13 Myelocytes % 0 % 10/09/18 15:13 Promyelocytes % 0 % 10/09/18 15:13 Blast Cells % 0 % 10/09/18 15:13 Nucleated RBC % Not Reportable 10/09/18 15:13 Seg Neutrophils # 3.8 K/mm3 (1.8-7.7) 10/12/18 06:29 Seg Neutrophils # Man 12.4 K/mm3 (1.8-7.7) H 10/09/18 15:13 Band Neutrophils # 0.5 K/mm3 10/09/18 15:13 Lymphocytes # (Manual) 2.4 K/mm3 (1.2-5.4) 10/09/18 15:13 Abs React Lymphs (Man) 0.0 K/mm3 10/09/18 15:13 Monocytes # (Manual) 1.3 K/mm3 (0.0-0.8) H 10/09/18 15:13 Eosinophils # (Manual) 0.2 K/mm3 (0.0-0.4) 10/09/18 15:13 Basophils # (Manual) 0.0 K/mm3 (0.0-0.1) 10/09/18 15:13 Metamyelocytes # 0.0 K/mm3 10/09/18 15:13 Myelocytes # 0.0 K/mm3 10/09/18 15:13 Promyelocytes # 0.0 K/mm3 10/09/18 15:13 Blast Cells # 0.0 K/mm3 10/09/18 15:13 WBC Morphology Not Reportable 10/09/18 15:13 Hypersegmented Neuts Not Reportable 10/09/18 15:13 Hyposegmented Neuts Not Reportable 10/09/18 15:13 Hypogranular Neuts Not Reportable 10/09/18 15:13 Smudge Cells Not Reportable 10/09/18 15:13 Toxic Granulation Not Reportable 10/09/18 15:13 Toxic Vacuolation Not Reportable 10/09/18 15:13 Dohle Bodies Not Reportable 10/09/18 15:13 Pelger-Huet Anomaly Not Reportable 10/09/18 15:13 Nereida Rods Not Reportable 10/09/18 15:13 Platelet Estimate Consistent w auto 10/09/18 15:13 Clumped Platelets Not Reportable 10/09/18 15:13 Plt Clumps, EDTA Not Reportable 10/09/18 15:13 Large Platelets Not Reportable 10/09/18 15:13 Giant Platelets Not Reportable 10/09/18 15:13 Platelet Satelliting Not Reportable 10/09/18 15:13 Plt Morphology Comment Not Reportable 10/09/18 15:13 RBC Morphology Normal 10/09/18 15:13 Dimorphic RBCs Not Reportable 10/09/18 15:13 Polychromasia Not Reportable 10/09/18 15:13 Hypochromasia Not Reportable 10/09/18 15:13 Poikilocytosis Not Reportable 10/09/18 15:13 Anisocytosis Not Reportable 10/09/18 15:13 Microcytosis Not Reportable 10/09/18 15:13 Macrocytosis Not Reportable 10/09/18 15:13 Spherocytes Not Reportable 10/09/18 15:13 Pappenheimer Bodies Not Reportable 10/09/18 15:13 Sickle Cells Not Reportable 10/09/18 15:13 Target Cells Not Reportable 10/09/18 15:13 Tear Drop Cells Not Reportable 10/09/18 15:13 Ovalocytes Not Reportable 10/09/18 15:13 Helmet Cells Not Reportable 10/09/18 15:13 Golden-Axis Bodies Not Reportable 10/09/18 15:13 [place] Rings Not Reportable 10/09/18 15:13 [place] Cells Not Reportable 10/09/18 15:13 Bite Cells Not Reportable 10/09/18 15:13 Crenated Cell Not Reportable 10/09/18 15:13 Elliptocytes Not Reportable 10/09/18 15:13 Acanthocytes (Spur) Not Reportable 10/09/18 15:13 Rouleaux Not Reportable 10/09/18 15:13 Hemoglobin C Crystals Not Reportable 10/09/18 15:13 Schistocytes Not Reportable 10/09/18 15:13 Malaria parasites Not Reportable 10/09/18 15:13 Miguel Bodies Not Reportable 10/09/18 15:13 Hem Pathologist Commnt No 10/09/18 15:13 PT 13.4 Sec. (12.2-14.9) 10/09/18 15:13 INR 0.96 (0.87-1.13) 10/09/18 15:13 APTT 23.0 Sec. (24.2-36.6) L 10/09/18 15:13 POC ABG pH 7.389 (7.35-7.45) 10/11/18 04:05 POC ABG pCO2 35.6 (35-45) 10/11/18 04:05 POC ABG pO2 89 (80-105) 10/11/18 04:05 POC ABG HCO3 21.5 (22-26 mml/L) 10/11/18 04:05 POC ABG Total CO2 23 (23-27mmol/L) 10/11/18 04:05 POC ABG O2 Sat 97 10/11/18 04:05 POC ABG Base Excess -3 ((-2) - (+3)mmol/L) 10/11/18 04:05 VBG pH 7.267 (7.320-7.420) L 10/09/18 15:13 FiO2 25 % 10/11/18 04:05 Sodium 142 mmol/L (137-145) 10/12/18 06:29 Potassium 3.5 mmol/L (3.6-5.0) L 10/12/18 06:29 Chloride 111.1 mmol/L (98-107) H 10/12/18 06:29 Carbon Dioxide 20 mmol/L (22-30) L 10/12/18 06:29 Anion Gap 14 mmol/L 10/12/18 06:29 BUN 4 mg/dL (9-20) L 10/12/18 06:29 Creatinine 0.7 mg/dL (0.8-1.5) L 10/12/18 06:29 Estimated GFR > 60 ml/min 10/12/18 06:29 BUN/Creatinine Ratio 6 % 10/12/18 06:29 Glucose 103 mg/dL (75-100) H 10/12/18 06:29 POC Glucose 99 (70-105) 10/11/18 10:26 Lactic Acid 1.50 mmol/L (0.7-2.0) 10/10/18 00:56 Calcium 8.4 mg/dL (8.4-10.2) 10/12/18 06:29 Phosphorus 3.60 mg/dL (2.5-4.5) D 10/12/18 06:29 Magnesium 1.70 mg/dL (1.7-2.3) 10/12/18 06:29 Total Bilirubin 0.20 mg/dL (0.1-1.2) 10/10/18 04:19 Direct Bilirubin < 0.2 mg/dL (0-0.2) 10/09/18 15:13 Indirect Bilirubin 0.0 mg/dL 10/09/18 15:13 AST 26 units/L (5-40) 10/10/18 04:19 ALT 33 units/L (7-56) 10/10/18 04:19 Alkaline Phosphatase 83 units/L (35-129) 10/10/18 04:19 Ammonia 111.0 umol/L (25-60) H 10/09/18 15:23 Total Creatine Kinase 131 units/L (55-170) 10/09/18 15:13 CK-MB (CK-2) 8.3 ng/mL (0.0-4.0) H 10/09/18 15:13 CK-MB (CK-2) Rel Index 6.3 (0-4) H 10/09/18 15:13 NT-Pro-B Natriuret Pep 163.1 pg/mL (0-450) 10/09/18 15:13 Total Protein 6.1 g/dL (6.3-8.2) L D 10/10/18 04:19 Albumin 3.5 g/dL (3.9-5) L 10/10/18 04:19 Albumin/Globulin Ratio 1.3 % 10/10/18 04:19 Lipase 24 units/L (13-60) 10/09/18 15:13 Urine Color Straw (Yellow) 10/09/18 Unknown Urine Turbidity Clear (Clear) 10/09/18 Unknown Urine pH 7.0 (5.0-7.0) 10/09/18 Unknown Ur Specific [place] 1.006 (1.003-1.030) 10/09/18 Unknown Urine Protein <15 mg/dl mg/dL (Negative) 10/09/18 Unknown Urine Glucose (UA) Neg mg/dL (Negative) 10/09/18 Unknown Urine Ketones Neg mg/dL (Negative) 10/09/18 Unknown Urine Blood Neg (Negative) 10/09/18 Unknown Urine Nitrite Neg (Negative) 10/09/18 Unknown Urine Bilirubin Neg (Negative) 10/09/18 Unknown Urine Urobilinogen < 2.0 mg/dL (<2.0) 10/09/18 Unknown Ur Leukocyte Esterase Neg (Negative) 10/09/18 Unknown Urine WBC (Auto) 0.0 /HPF (0.0-6.0) 10/09/18 Unknown Urine RBC (Auto) < 1.0 /HPF (0.0-6.0) 10/09/18 Unknown U Epithel Cells (Auto) < 1.0 /HPF (0-13.0) 10/09/18 Unknown Active Medications - Current Medications Current Medications: Generic Name Dose Route Start Last Admin Trade Name Freq PRN Reason Stop Dose Admin Lipase/Protease/Amylase 1 each 10/10/18 09:[address] 10,500 Unit FEEDTUBE PRN PRN For Clogged Feeding Tube Enoxaparin Sodium 40 mg 10/10/18 22:00 10/11/18 22:10 Lovenox SUB-Q 40 mg QDAY@2200 SILVANA Administration Fentanyl 50 mcg 10/09/18 18:57 Sublimaze IV Q10MIN PRN ANALGESIA Hydromorphone HCl 0.5 mg 10/09/18 20:54 10/11/18 08:23 Dilaudid IV 0.5 mg Q3H PRN Administration Pain , Severe (7-10) Hydrophilic Ointment 1 applic 10/09/18 14:49 Vaseline Lip Therapy TP Q2HR PRN Dry Lips Dextrose/Sodium Chloride 1,000 mls @ 75 mls/hr 10/09/18 21:00 10/11/18 18:45 D5/0.45ns IV 75 mls/hr DIRECT SILVANA Administration Lacosamide 200 mg/ Sodium 120 mls @ 100 mls/hr 10/09/18 22:00 10/11/18 21:01 Chloride IV 100 mls/hr Q12H SILVANA Administration Levetiracetam 1,500 mg/ Sodium 115 mls @ 400 mls/hr 10/10/18 10:00 10/11/18 22:28 Chloride IV Infused Q12HR SILVANA Infusion Lamotrigine 300 mg 10/09/18 22:00 10/11/18 22:10 Lamictal PO 300 mg BID SILVANA Administration Lorazepam 2 mg 10/11/18 12:34 Ativan IV Q4H PRN Seizures Metoclopramide HCl 10 mg 10/09/18 20:54 Reglan IV Q6H PRN Nausea And Vomiting Multi-Ingred Cream/Lotion/Oil/Oint 1 applic 10/09/18 14:49 Artificial Tears Ophth Oint OU Q4HR PRN Dry Eye(s) Ondansetron HCl 4 mg 10/09/18 20:54 Zofran IV Q8H PRN Nausea And Vomiting Potassium Chloride 40 meq 10/12/18 07:20 K-Dur PO 10/12/18 07:21 ONCE ONE Simple Syrup 15 ml 10/09/18 20:54 Simple Syrup FEEDTUBE PRN PRN Hypoglycemia Simple Syrup 30 ml 10/09/18 20:54 Simple Syrup FEEDTUBE PRN PRN Hypoglycemia Sodium Bicarbonate 325 mg 10/10/18 09:39 Sodium Bicarbonate FEEDTUBE PRN PRN For Clogged Feeding Tube Sodium Chloride 10 ml 10/09/18 22:00 10/11/18 22:26 Sodium Chloride Flush Syringe 10 Ml IV Not Given BID SILVANA Sodium Chloride 10 ml 10/09/18 20:54 10/10/18 16:16 Sodium Chloride Flush Syringe 10 Ml IV 10 ml PRN PRN Administration LINE FLUSH Topiramate 50 mg 10/09/18 22:00 10/11/18 22:10 Topamax PO 50 mg Q12HR SILVANA Administration Trazodone HCl 50 mg 10/10/18 18:00 10/11/18 18:35 Desyrel PO Not Given QPM [facility] Nutrition/Malnutrition Assess - Dietary Evaluation Nutrition/Malnutrition Findings: Nutrition Notes Start: 10/10/18 07:56 Freq: Status: Active Protocol: Document 10/10/18 07:56 LP (Rec: 10/10/18 08:03 LP [id number]) Nutrition Notes Need for Assessment generated from: MD Order Initial or Follow up Assessment Current Diagnosis Sepsis,Respiratory Failure, Stroke Other Pertinent Diagnosis dementia, seizures, pneu Current Diet NPO Labs/Tests Reviewed Pertinent Medications D5 1/2 NS at 75ml/hr Height 5 ft 8 in Weight 117.934 kg [place] Body Weight (kg) 70.00 BMI 39.5 Subjective/Other Information Consult for TF. Pt on vent. Burn Absent Trauma Absent #1 Nutrition Diagnosis Inadequate oral intake Etiology vent As Evidenced by Signs and Symptoms Pt unable to consume PO Is patient on ventilator? Yes Is Patient Ambulatory and/or Out of Bed No REE-([place]-confined to bed) 2561.688 Kcal/Kg value to use for calculation 17 Approximate Energy Requirements Using 2005 kcal/Kg Calculation Used for Recommendations Kcal/kg Additional Notes Protein needs are 140g (2g/kg) Fluid needs are 1ml/kcal Nutrition Intervention Change Diet Order: TF Nutrition Support: Promote at 80ml/hr Flush with 50ml q4h Kcal 1,920 Protein (gm) 120 Fluid (mL) 1,611 Goal #1 Meet at least 80% of kcal and protein needs via TF Anticipated Discharge Needs: Unable to determine at this time Follow-Up By: 10/12/18 Additional Comments Follow for TF start/tolerance
--- NOTE | 2018-10-12 08:05 | Progress Note ---
Subjective Date of service: 10/12/18 Interval history: last exam revealed patient more alert and seizures have abated will get EEG OK to taper off vent in my view Objective - Vital Sign Vital Signs - 12hr 10/11/18 10/11/18 10/11/18 20:31 21:00 21:31 Temperature Pulse Rate 86 83 86 Pulse Rate [ From Monitor] Respiratory 26 H 27 H 21 Rate Blood Pressure 121/57 128/65 115/58 O2 Sat by Pulse 98 99 100 Oximetry 10/11/18 10/11/18 10/11/18 22:00 22:31 22:48 Temperature Pulse Rate 88 85 81 Pulse Rate [ From Monitor] Respiratory 27 H 26 H Rate Blood Pressure 134/74 128/65 134/74 O2 Sat by Pulse 97 99 99 Oximetry 10/11/18 10/11/18 10/11/18 23:00 23:10 23:31 Temperature 97.8 F Pulse Rate 87 91 H Pulse Rate [ From Monitor] Respiratory 25 H 22 Rate Blood Pressure 127/65 134/74 O2 Sat by Pulse 100 95 Oximetry 10/12/18 10/12/18 10/12/18 00:00 00:31 01:01 Temperature Pulse Rate 84 100 H 82 Pulse Rate [ 82 From Monitor] Respiratory 27 H 30 H 29 H Rate Blood Pressure 120/63 120/63 112/62 O2 Sat by Pulse 95 97 97 Oximetry 10/12/18 10/12/18 10/12/18 01:31 02:01 02:31 Temperature Pulse Rate 78 75 76 Pulse Rate [ From Monitor] Respiratory 18 25 H 24 Rate Blood Pressure 120/63 99/35 112/62 O2 Sat by Pulse 95 96 98 Oximetry 10/12/18 10/12/18 10/12/18 03:00 03:01 03:31 Temperature 98.4 F Pulse Rate 66 75 Pulse Rate [ From Monitor] Respiratory 22 15 Rate Blood Pressure 86/42 86/42 O2 Sat by Pulse 99 100 Oximetry 10/12/18 10/12/18 10/12/18 04:00 04:01 04:31 Temperature Pulse Rate 59 L 69 Pulse Rate [ 65 From Monitor] Respiratory 21 22 24 Rate Blood Pressure 102/45 102/45 O2 Sat by Pulse 100 100 99 Oximetry 10/12/18 10/12/18 10/12/18 05:01 05:31 06:00 Temperature Pulse Rate 95 H 75 74 Pulse Rate [ From Monitor] Respiratory 15 26 H 18 Rate Blood Pressure 102/45 102/45 104/53 O2 Sat by Pulse 100 99 99 Oximetry 10/12/18 10/12/18 06:31 07:01 Temperature Pulse Rate 70 78 Pulse Rate [ From Monitor] Respiratory 24 14 Rate Blood Pressure 107/50 106/55 O2 Sat by Pulse 99 100 Oximetry - Laboratory Findings CBC and BMP: 10/12/18 06:29 10/12/18 06:29 Abnormal Lab Findings: Abnormal Labs 10/09/18 10/09/18 10/09/18 15:13 15:13 15:13 WBC 16.8 H Hgb 15.7 H Hct 46.2 H MCHC RDW 12.8 L Plt Count 494 H Lymph % (Auto) [place] % (Auto) Eos % (Auto) [place] # Eos # Seg Neutrophils % Seg Neuts % (Manual) 74.0 H Monocytes % (Manual) 8.0 H Seg Neutrophils # Seg Neutrophils # Man 12.4 H Monocytes # (Manual) 1.3 H APTT 23.0 L POC ABG pH POC ABG pO2 VBG pH Potassium Chloride Carbon Dioxide BUN Creatinine Glucose POC Glucose Lactic Acid 4.60 H* Ammonia CK-MB (CK-2) CK-MB (CK-2) Rel Index Total Protein Albumin 10/09/18 10/09/18 10/09/18 15:13 15:13 15:13 WBC Hgb Hct MCHC RDW Plt Count Lymph % (Auto) [place] % (Auto) Eos % (Auto) [place] # Eos # Seg Neutrophils % Seg Neuts % (Manual) Monocytes % (Manual) Seg Neutrophils # Seg Neutrophils # Man Monocytes # (Manual) APTT POC ABG pH POC ABG pO2 VBG pH 7.267 L Potassium 5.1 H Chloride 86.4 L Carbon Dioxide 19 L BUN 8 L Creatinine Glucose 128 H POC Glucose Lactic Acid Ammonia CK-MB (CK-2) 8.3 H CK-MB (CK-2) Rel Index 6.3 H Total Protein Albumin 10/09/18 10/09/18 10/09/18 15:23 16:01 18:19 WBC Hgb Hct MCHC RDW Plt Count Lymph % (Auto) [place] % (Auto) Eos % (Auto) [place] # Eos # Seg Neutrophils % Seg Neuts % (Manual) Monocytes % (Manual) Seg Neutrophils # Seg Neutrophils # Man Monocytes # (Manual) APTT POC ABG pH 7.257 L POC ABG pO2 111 H VBG pH Potassium Chloride Carbon Dioxide BUN Creatinine Glucose POC Glucose Lactic Acid 2.80 H* Ammonia 111.0 H CK-MB (CK-2) CK-MB (CK-2) Rel Index Total Protein Albumin 10/09/18 10/10/18 10/10/18 20:05 04:03 04:19 WBC 15.6 H Hgb Hct MCHC RDW 12.5 L Plt Count Lymph % (Auto) [place] % (Auto) Eos % (Auto) [place] # 1.1 H Eos # Seg Neutrophils % 74.8 H Seg Neuts % (Manual) Monocytes % (Manual) Seg Neutrophils # 11.6 H Seg Neutrophils # Man Monocytes # (Manual) APTT POC ABG pH 7.302 L POC ABG pO2 132 H VBG pH Potassium Chloride Carbon Dioxide BUN Creatinine Glucose POC Glucose Lactic Acid 2.20 H* Ammonia CK-MB (CK-2) CK-MB (CK-2) Rel Index Total Protein Albumin 10/10/18 10/10/18 10/11/18 04:19 17:53 08:26 WBC Hgb Hct MCHC RDW Plt Count Lymph % (Auto) [place] % (Auto) Eos % (Auto) [place] # Eos # Seg Neutrophils % Seg Neuts % (Manual) Monocytes % (Manual) Seg Neutrophils # Seg Neutrophils # Man Monocytes # (Manual) APTT POC ABG pH POC ABG pO2 VBG pH Potassium Chloride 110.1 H Carbon Dioxide 19 L 20 L BUN 7 L 5 L Creatinine 0.7 L 0.7 L Glucose 118 H 112 H POC Glucose 106 H Lactic Acid Ammonia CK-MB (CK-2) CK-MB (CK-2) Rel Index Total Protein 6.1 L D Albumin 3.5 L 10/11/18 10/12/18 10/12/18 Unknown 06:29 06:29 WBC Hgb Hct MCHC 35 H RDW 12.6 L 12.3 L Plt Count Lymph % (Auto) 37.9 H [place] % (Auto) 10.6 H 10.4 H Eos % (Auto) 6.0 H [place] # 1.0 H 0.9 H Eos # 0.5 H Seg Neutrophils % Seg Neuts % (Manual) Monocytes % (Manual) Seg Neutrophils # Seg Neutrophils # Man Monocytes # (Manual) APTT POC ABG pH POC ABG pO2 VBG pH Potassium 3.5 L Chloride 111.1 H Carbon Dioxide 20 L BUN 4 L Creatinine 0.7 L Glucose 103 H POC Glucose Lactic Acid Ammonia CK-MB (CK-2) CK-MB (CK-2) Rel Index Total Protein Albumin
[2018-10-12] MEDS: D5/0.45NS 1,000 ML IV SCH (08:12)
[2018-10-12] MEDS ORDERED: MAGNESIUM SULFATE 3 GM in NACL 0.9% 100 ML IV ONE (09:00)
--- NOTE | 2018-10-12 09:06 | Progress Note ---
Assessment and Plan seizures with status epilepticus acute respiratory failure,s/p MV support Rec: Continue seizure meds Neuro f/u Progress diet DVT prophylaxis If he remains stable w/o new events, may be transferred out Subjective Date of service: 10/12/18 Principal diagnosis: seizures, status epilepticus,acute respiratory Interval history: No complains. No seizure events overnight Objective Vital Signs - 12hr 10/11/18 10/11/18 10/11/18 21:31 22:00 22:31 Temperature Pulse Rate 86 88 85 Pulse Rate [ From Monitor] Respiratory 21 27 H Rate Blood Pressure 115/58 134/74 128/65 O2 Sat by Pulse 100 97 99 Oximetry 10/11/18 10/11/18 10/11/18 22:48 23:00 23:10 Temperature 97.8 F Pulse Rate 81 87 Pulse Rate [ From Monitor] Respiratory 26 H 25 H Rate Blood Pressure 134/74 127/65 O2 Sat by Pulse 99 100 Oximetry 10/11/18 10/12/18 10/12/18 23:31 00:00 00:31 Temperature Pulse Rate 91 H 84 100 H Pulse Rate [ 82 From Monitor] Respiratory 22 27 H 30 H Rate Blood Pressure 134/74 120/63 120/63 O2 Sat by Pulse 95 95 97 Oximetry 10/12/18 10/12/18 10/12/18 01:01 01:31 02:01 Temperature Pulse Rate 82 78 75 Pulse Rate [ From Monitor] Respiratory 29 H 18 25 H Rate Blood Pressure 112/62 120/63 99/35 O2 Sat by Pulse 97 95 96 Oximetry 10/12/18 10/12/18 10/12/18 02:31 03:00 03:01 Temperature 98.4 F Pulse Rate 76 66 Pulse Rate [ From Monitor] Respiratory 24 22 Rate Blood Pressure 112/62 86/42 O2 Sat by Pulse 98 99 Oximetry 10/12/18 10/12/18 10/12/18 03:31 04:00 04:01 Temperature Pulse Rate 75 59 L Pulse Rate [ 65 From Monitor] Respiratory 15 21 22 Rate Blood Pressure 86/42 102/45 O2 Sat by Pulse 100 100 100 Oximetry 10/12/18 10/12/18 10/12/18 04:31 05:01 05:31 Temperature Pulse Rate 69 95 H 75 Pulse Rate [ From Monitor] Respiratory 24 15 26 H Rate Blood Pressure 102/45 102/45 102/45 O2 Sat by Pulse 99 100 99 Oximetry 10/12/18 10/12/18 10/12/18 06:00 06:31 07:01 Temperature Pulse Rate 74 70 78 Pulse Rate [ From Monitor] Respiratory 18 24 14 Rate Blood Pressure 104/53 107/50 106/55 O2 Sat by Pulse 99 99 100 Oximetry 10/12/18 10/12/18 10/12/18 07:31 08:00 08:04 Temperature 98.5 F Pulse Rate 64 58 L Pulse Rate [ 59 L From Monitor] Respiratory 28 H 24 Rate Blood Pressure 106/55 92/43 O2 Sat by Pulse 97 98 99 Oximetry Constitutional: no acute distress, alert Eyes: non-icteric Neck: supple, no JVD Effort: normal Ascultation: Bilateral: clear Percussion: Bilateral: not dull Cardiovascular: regular rate and rhythm Gastrointestinal: normoactive bowel sounds, soft Integumentary: normal Extremities: no cyanosis, no edema, pink and warm Neurologic: normal mental status, non-focal exam, pupils equal and round Psychiatric: mood appropriate, affect normal CBC and BMP: 10/13/18 05:37 10/14/18 06:07 ABG, PT/INR, D-dimer: ABG POC ABG pH 7.389 (7.35-7.45) 10/11/18 04:05 POC ABG pCO2 35.6 (35-45) 10/11/18 04:05 POC ABG pO2 89 (80-105) 10/11/18 04:05 POC ABG HCO3 21.5 (22-26 mml/L) 10/11/18 04:05 POC ABG Total CO2 23 (23-27mmol/L) 10/11/18 04:05 POC ABG O2 Sat 97 10/11/18 04:05 PT/INR, D-dimer PT 13.4 Sec. (12.2-14.9) 10/09/18 15:13 INR 0.96 (0.87-1.13) 10/09/18 15:13 Abnormal lab findings: Abnormal Labs 10/09/18 10/09/18 10/09/18 15:13 15:13 15:13 WBC 16.8 H Hgb 15.7 H Hct 46.2 H MCHC RDW 12.8 L Plt Count 494 H Lymph % (Auto) [place] % (Auto) Eos % (Auto) [place] # Eos # Seg Neutrophils % Seg Neuts % (Manual) 74.0 H Monocytes % (Manual) 8.0 H Seg Neutrophils # Seg Neutrophils # Man 12.4 H Monocytes # (Manual) 1.3 H APTT 23.0 L POC ABG pH POC ABG pO2 VBG pH Potassium Chloride Carbon Dioxide BUN Creatinine Glucose POC Glucose Lactic Acid 4.60 H* Ammonia CK-MB (CK-2) CK-MB (CK-2) Rel Index Total Protein Albumin 10/09/18 10/09/18 10/09/18 15:13 15:13 15:13 WBC Hgb Hct MCHC RDW Plt Count Lymph % (Auto) [place] % (Auto) Eos % (Auto) [place] # Eos # Seg Neutrophils % Seg Neuts % (Manual) Monocytes % (Manual) Seg Neutrophils # Seg Neutrophils # Man Monocytes # (Manual) APTT POC ABG pH POC ABG pO2 VBG pH 7.267 L Potassium 5.1 H Chloride 86.4 L Carbon Dioxide 19 L BUN 8 L Creatinine Glucose 128 H POC Glucose Lactic Acid Ammonia CK-MB (CK-2) 8.3 H CK-MB (CK-2) Rel Index 6.3 H Total Protein Albumin 10/09/18 10/09/18 10/09/18 15:23 16:01 18:19 WBC Hgb Hct MCHC RDW Plt Count Lymph % (Auto) [place] % (Auto) Eos % (Auto) [place] # Eos # Seg Neutrophils % Seg Neuts % (Manual) Monocytes % (Manual) Seg Neutrophils # Seg Neutrophils # Man Monocytes # (Manual) APTT POC ABG pH 7.257 L POC ABG pO2 111 H VBG pH Potassium Chloride Carbon Dioxide BUN Creatinine Glucose POC Glucose Lactic Acid 2.80 H* Ammonia 111.0 H CK-MB (CK-2) CK-MB (CK-2) Rel Index Total Protein Albumin 10/09/18 10/10/18 10/10/18 20:05 04:03 04:19 WBC 15.6 H Hgb Hct MCHC RDW 12.5 L Plt Count Lymph % (Auto) [place] % (Auto) Eos % (Auto) [place] # 1.1 H Eos # Seg Neutrophils % 74.8 H Seg Neuts % (Manual) Monocytes % (Manual) Seg Neutrophils # 11.6 H Seg Neutrophils # Man Monocytes # (Manual) APTT POC ABG pH 7.302 L POC ABG pO2 132 H VBG pH Potassium Chloride Carbon Dioxide BUN Creatinine Glucose POC Glucose Lactic Acid 2.20 H* Ammonia CK-MB (CK-2) CK-MB (CK-2) Rel Index Total Protein Albumin 10/10/18 10/10/18 10/11/18 04:19 17:53 08:26 WBC Hgb Hct MCHC RDW Plt Count Lymph % (Auto) [place] % (Auto) Eos % (Auto) [place] # Eos # Seg Neutrophils % Seg Neuts % (Manual) Monocytes % (Manual) Seg Neutrophils # Seg Neutrophils # Man Monocytes # (Manual) APTT POC ABG pH POC ABG pO2 VBG pH Potassium Chloride 110.1 H Carbon Dioxide 19 L 20 L BUN 7 L 5 L Creatinine 0.7 L 0.7 L Glucose 118 H 112 H POC Glucose 106 H Lactic Acid Ammonia CK-MB (CK-2) CK-MB (CK-2) Rel Index Total Protein 6.1 L D Albumin 3.5 L 10/11/18 10/12/18 10/12/18 Unknown 06:29 06:29 WBC Hgb Hct MCHC 35 H RDW 12.6 L 12.3 L Plt Count Lymph % (Auto) 37.9 H [place] % (Auto) 10.6 H 10.4 H Eos % (Auto) 6.0 H [place] # 1.0 H 0.9 H Eos # 0.5 H Seg Neutrophils % Seg Neuts % (Manual) Monocytes % (Manual) Seg Neutrophils # Seg Neutrophils # Man Monocytes # (Manual) APTT POC ABG pH POC ABG pO2 VBG pH Potassium 3.5 L Chloride 111.1 H Carbon Dioxide 20 L BUN 4 L Creatinine 0.7 L Glucose 103 H POC Glucose Lactic Acid Ammonia CK-MB (CK-2) CK-MB (CK-2) Rel Index Total Protein Albumin
[2018-10-12] MEDS: TOPAMAX PO SCH ×2 (09:32→21:34)
[2018-10-12] MEDS: LaMICtal PO SCH ×2 (09:33→21:33)
[2018-10-12] MEDS: KEPPRA 1,500 MG in NACL 0.9% 100 ML IV SCH (09:35)
[2018-10-12] MEDS: SODIUM CHLORIDE FLUSH SYRINGE 10 ML IV SCH ×2 (09:35→21:35)
[2018-10-12] MEDS: VIMPAT 200 MG in NACL 0.9% 100 ML IV SCH (09:52)
[2018-10-12] MEDS: DESYREL PO SCH ×2 (18:38→21:34)
[2018-10-12] MEDS: LOVENOX SUB-Q SCH (21:33)
[2018-10-12] MEDS: XANAX PO SCH (21:34)
[2018-10-13 06:23] LABS: Basophils # (Auto) 0.1 K/mm3 (0.0-0.1); Basophils % (Auto) 0.8 % (0.0-1.8); Eosinophils # (Auto) 0.4 K/mm3 (0.0-0.4); Eosinophils % (Auto) 4.8 % (0.0-4.3); Lymphocytes # (Auto) 2.8 K/mm3 (1.2-5.4); Lymphocytes % (Auto) 32.5 % (13.4-35.0); Mean Corpuscular HGB Conc 34 % (32-34); Mean Corpuscular Volume 91 fl (84-94); Monocytes % (Auto) 11.6 % (0.0-7.3); Platelet Count 345 K/mm3 (140-440); Red Blood Count 4.19 M/mm3 (3.65-5.03); Red Cell Distribution Width 12.6 % (13.2-15.2)
[2018-10-13 06:41] LABS: BUN/Creatinine Ratio 9; Blood Urea Nitrogen 7 mg/dL (9-20); Calcium 8.7 mg/dL (8.4-10.2); Hemolysis Index 9
[2018-10-13] MEDS: KEPPRA PO SCH ×2 (10:10→22:57)
[2018-10-13] MEDS: LaMICtal PO SCH ×2 (10:11→22:58)
[2018-10-13] MEDS: VIMPAT PO SCH ×2 (10:11→22:58)
[2018-10-13] MEDS: XANAX PO SCH ×2 (10:11→22:58)
[2018-10-13] MEDS: TOPAMAX PO SCH ×2 (10:12→22:58)
[2018-10-13] MEDS: SODIUM CHLORIDE FLUSH SYRINGE 10 ML IV SCH ×2 (10:12→22:59)
--- NOTE | 2018-10-13 10:17 | Progress Note ---
Assessment and Plan Assessment and plan: --Status epilepticus; seizure precautions, continue antiepileptic medications Ativan, neurology following, patient has VNS in place -Acute respiratory failure; requiring intubation s/p extubation yesterday, saturating well on 3 L nasal cannula oxygen Pulmonary following, supportive care --Hypokalemia; replace with KCl, monitor levels --Possible aspiration pneumonia; on cefepime and Vanco D4, complete 5 days and DC tomorrow Cultures negative to date, chest x-ray no infiltrate --Metabolic acidosis/lactic acidosis; Significant improvement, continue supportive care --[id number] malnutrition/hypoalbuminemia; nutrition supplements and supportive care, --Obesity; BMI 39.5 Patient needs weight reduction when medically stable --DVT prophylaxis; Lovenox --Physical therapy/DC planning possible home with home health Consults and recommendations noted and appreciated Monitor the patient closely and adjust the management as needed Possible discharge in 1-2 days if stable History Interval history: Patient seen and examined medical records reviewed Patient feels better comfortable no new complaints Legally blind Vital signs noted No new episodes of seizure Hospitalist Physical - Constitutional Vitals: Temp Pulse Resp BP Pulse Ox 98.2 F 71 20 125/54 97 10/13/18 08:04 10/13/18 08:03 10/13/18 08:03 10/13/18 08:03 10/13/18 08:03 General appearance: Present: no acute distress, well-nourished, other (extubated, on nasal cannula oxygen) - EENT Eyes: Present: PERRL, EOM intact - Neck Neck: Present: supple, normal ROM - Respiratory Respiratory effort: normal Respiratory: bilateral: diminished, negative: rales, rhonchi, wheezing - Cardiovascular Rhythm: regular Heart Sounds: Present: S1 & S2 - Extremities Extremities: no ischemia, No edema - Abdominal General gastrointestinal: soft, non-tender, non-distended, normal bowel sounds - Integumentary Integumentary: Present: clear, warm - Psychiatric Psychiatric: appropriate mood/affect, cooperative - Neurologic Neurologic: moves all extremities, other (legally blind) Results - Labs CBC & Chem 7: 10/13/18 05:37 10/13/18 05:37 Labs: Laboratory Last Values WBC 8.5 K/mm3 (4.5-11.0) 10/13/18 05:37 RBC 4.19 M/mm3 (3.65-5.03) 10/13/18 05:37 Hgb 13.0 gm/dl (11.8-15.2) 10/13/18 05:37 Hct 38.0 % (35.5-45.6) 10/13/18 05:37 MCV 91 fl (84-94) 10/13/18 05:37 MCH 31 pg (28-32) 10/13/18 05:37 MCHC 34 % (32-34) 10/13/18 05:37 RDW 12.6 % (13.2-15.2) L 10/13/18 05:37 Plt Count 345 K/mm3 (140-440) 10/13/18 05:37 Lymph % (Auto) 32.5 % (13.4-35.0) 10/13/18 05:37 [place] % (Auto) 11.6 % (0.0-7.3) H 10/13/18 05:37 Eos % (Auto) 4.8 % (0.0-4.3) H 10/13/18 05:37 Baso % (Auto) 0.8 % (0.0-1.8) 10/13/18 05:37 Lymph # 2.8 K/mm3 (1.2-5.4) 10/13/18 05:37 [place] # 1.0 K/mm3 (0.0-0.8) H 10/13/18 05:37 Eos # 0.4 K/mm3 (0.0-0.4) 10/13/18 05:37 Baso # 0.1 K/mm3 (0.0-0.1) 10/13/18 05:37 Add Manual Diff Complete 10/09/18 15:13 Total Counted 100 10/09/18 15:13 Seg Neutrophils % 50.3 % (40.0-70.0) 10/13/18 05:37 Seg Neuts % (Manual) 74.0 % (40.0-70.0) H 10/09/18 15:13 Band Neutrophils % 3.0 % 10/09/18 15:13 Lymphocytes % (Manual) 14.0 % (13.4-35.0) 10/09/18 15:13 Reactive Lymphs % (Man) 0 % 10/09/18 15:13 Monocytes % (Manual) 8.0 % (0.0-7.3) H 10/09/18 15:13 Eosinophils % (Manual) 1.0 % (0.0-4.3) 10/09/18 15:13 Basophils % (Manual) 0 % (0.0-1.8) 10/09/18 15:13 Metamyelocytes % 0 % 10/09/18 15:13 Myelocytes % 0 % 10/09/18 15:13 Promyelocytes % 0 % 10/09/18 15:13 Blast Cells % 0 % 10/09/18 15:13 Nucleated RBC % Not Reportable 10/09/18 15:13 Seg Neutrophils # 4.3 K/mm3 (1.8-7.7) 10/13/18 05:37 Seg Neutrophils # Man 12.4 K/mm3 (1.8-7.7) H 10/09/18 15:13 Band Neutrophils # 0.5 K/mm3 10/09/18 15:13 Lymphocytes # (Manual) 2.4 K/mm3 (1.2-5.4) 10/09/18 15:13 Abs React Lymphs (Man) 0.0 K/mm3 10/09/18 15:13 Monocytes # (Manual) 1.3 K/mm3 (0.0-0.8) H 10/09/18 15:13 Eosinophils # (Manual) 0.2 K/mm3 (0.0-0.4) 10/09/18 15:13 Basophils # (Manual) 0.0 K/mm3 (0.0-0.1) 10/09/18 15:13 Metamyelocytes # 0.0 K/mm3 10/09/18 15:13 Myelocytes # 0.0 K/mm3 10/09/18 15:13 Promyelocytes # 0.0 K/mm3 10/09/18 15:13 Blast Cells # 0.0 K/mm3 10/09/18 15:13 WBC Morphology Not Reportable 10/09/18 15:13 Hypersegmented Neuts Not Reportable 10/09/18 15:13 Hyposegmented Neuts Not Reportable 10/09/18 15:13 Hypogranular Neuts Not Reportable 10/09/18 15:13 Smudge Cells Not Reportable 10/09/18 15:13 Toxic Granulation Not Reportable 10/09/18 15:13 Toxic Vacuolation Not Reportable 10/09/18 15:13 Dohle Bodies Not Reportable 10/09/18 15:13 Pelger-Huet Anomaly Not Reportable 10/09/18 15:13 Nereida Rods Not Reportable 10/09/18 15:13 Platelet Estimate Consistent w auto 10/09/18 15:13 Clumped Platelets Not Reportable 10/09/18 15:13 Plt Clumps, EDTA Not Reportable 10/09/18 15:13 Large Platelets Not Reportable 10/09/18 15:13 Giant Platelets Not Reportable 10/09/18 15:13 Platelet Satelliting Not Reportable 10/09/18 15:13 Plt Morphology Comment Not Reportable 10/09/18 15:13 RBC Morphology Normal 10/09/18 15:13 Dimorphic RBCs Not Reportable 10/09/18 15:13 Polychromasia Not Reportable 10/09/18 15:13 Hypochromasia Not Reportable 10/09/18 15:13 Poikilocytosis Not Reportable 10/09/18 15:13 Anisocytosis Not Reportable 10/09/18 15:13 Microcytosis Not Reportable 10/09/18 15:13 Macrocytosis Not Reportable 10/09/18 15:13 Spherocytes Not Reportable 10/09/18 15:13 Pappenheimer Bodies Not Reportable 10/09/18 15:13 Sickle Cells Not Reportable 10/09/18 15:13 Target Cells Not Reportable 10/09/18 15:13 Tear Drop Cells Not Reportable 10/09/18 15:13 Ovalocytes Not Reportable 10/09/18 15:13 Helmet Cells Not Reportable 10/09/18 15:13 [place] Bodies Not Reportable 10/09/18 15:13 Josephine Rings Not Reportable 10/09/18 15:13 Rumely Cells Not Reportable 10/09/18 15:13 Bite Cells Not Reportable 10/09/18 15:13 Crenated Cell Not Reportable 10/09/18 15:13 Elliptocytes Not Reportable 10/09/18 15:13 Acanthocytes (Spur) Not Reportable 10/09/18 15:13 Rouleaux Not Reportable 10/09/18 15:13 Hemoglobin C Crystals Not Reportable 10/09/18 15:13 Schistocytes Not Reportable 10/09/18 15:13 Malaria parasites Not Reportable 10/09/18 15:13 Miguel Bodies Not Reportable 10/09/18 15:13 Hem Pathologist Commnt No 10/09/18 15:13 PT 13.4 Sec. (12.2-14.9) 10/09/18 15:13 INR 0.96 (0.87-1.13) 10/09/18 15:13 APTT 23.0 Sec. (24.2-36.6) L 10/09/18 15:13 POC ABG pH 7.389 (7.35-7.45) 10/11/18 04:05 POC ABG pCO2 35.6 (35-45) 10/11/18 04:05 POC ABG pO2 89 (80-105) 10/11/18 04:05 POC ABG HCO3 21.5 (22-26 mml/L) 10/11/18 04:05 POC ABG Total CO2 23 (23-27mmol/L) 10/11/18 04:05 POC ABG O2 Sat 97 10/11/18 04:05 POC ABG Base Excess -3 ((-2) - (+3)mmol/L) 10/11/18 04:05 VBG pH 7.267 (7.320-7.420) L 10/09/18 15:13 FiO2 25 % 10/11/18 04:05 Sodium 142 mmol/L (137-145) 10/13/18 05:37 Potassium 3.5 mmol/L (3.6-5.0) L 10/13/18 05:37 Chloride 110.2 mmol/L (98-107) H 10/13/18 05:37 Carbon Dioxide 20 mmol/L (22-30) L 10/13/18 05:37 Anion Gap 15 mmol/L 10/13/18 05:37 BUN 7 mg/dL (9-20) L 10/13/18 05:37 Creatinine 0.8 mg/dL (0.8-1.5) 10/13/18 05:37 Estimated GFR > 60 ml/min 10/13/18 05:37 BUN/Creatinine Ratio 9 % 10/13/18 05:37 Glucose 93 mg/dL (75-100) 10/13/18 05:37 POC Glucose 99 (70-105) 10/11/18 10:26 Lactic Acid 1.50 mmol/L (0.7-2.0) 10/10/18 00:56 Calcium 8.7 mg/dL (8.4-10.2) 10/13/18 05:37 Phosphorus 3.60 mg/dL (2.5-4.5) D 10/12/18 06:29 Magnesium 2.10 mg/dL (1.7-2.3) 10/13/18 05:37 Total Bilirubin 0.20 mg/dL (0.1-1.2) 10/10/18 04:19 Direct Bilirubin < 0.2 mg/dL (0-0.2) 10/09/18 15:13 Indirect Bilirubin 0.0 mg/dL 10/09/18 15:13 AST 26 units/L (5-40) 10/10/18 04:19 ALT 33 units/L (7-56) 10/10/18 04:19 Alkaline Phosphatase 83 units/L (35-129) 10/10/18 04:19 Ammonia 111.0 umol/L (25-60) H 10/09/18 15:23 Total Creatine Kinase 131 units/L (55-170) 10/09/18 15:13 CK-MB (CK-2) 8.3 ng/mL (0.0-4.0) H 10/09/18 15:13 CK-MB (CK-2) Rel Index 6.3 (0-4) H 10/09/18 15:13 NT-Pro-B Natriuret Pep 163.1 pg/mL (0-450) 10/09/18 15:13 Total Protein 6.1 g/dL (6.3-8.2) L D 10/10/18 04:19 Albumin 3.5 g/dL (3.9-5) L 10/10/18 04:19 Albumin/Globulin Ratio 1.3 % 10/10/18 04:19 Lipase 24 units/L (13-60) 10/09/18 15:13 Urine Color Straw (Yellow) 10/09/18 Unknown Urine Turbidity Clear (Clear) 10/09/18 Unknown Urine pH 7.0 (5.0-7.0) 10/09/18 Unknown Ur Specific [place] 1.006 (1.003-1.030) 10/09/18 Unknown Urine Protein <15 mg/dl mg/dL (Negative) 10/09/18 Unknown Urine Glucose (UA) Neg mg/dL (Negative) 10/09/18 Unknown Urine Ketones Neg mg/dL (Negative) 10/09/18 Unknown Urine Blood Neg (Negative) 10/09/18 Unknown Urine Nitrite Neg (Negative) 10/09/18 Unknown Urine Bilirubin Neg (Negative) 10/09/18 Unknown Urine Urobilinogen < 2.0 mg/dL (<2.0) 10/09/18 Unknown Ur Leukocyte Esterase Neg (Negative) 10/09/18 Unknown Urine WBC (Auto) 0.0 /HPF (0.0-6.0) 10/09/18 Unknown Urine RBC (Auto) < 1.0 /HPF (0.0-6.0) 10/09/18 Unknown U Epithel Cells (Auto) < 1.0 /HPF (0-13.0) 10/09/18 Unknown Active Medications - Current Medications Current Medications: Generic Name Dose Route Start Last Admin Trade Name Freq PRN Reason Stop Dose Admin Alprazolam 0.5 mg 10/12/18 22:00 10/12/18 21:34 Xanax PO 0.5 mg Q12HR SILVANA Administration Enoxaparin Sodium 40 mg 10/10/18 22:00 10/12/18 21:33 Lovenox SUB-Q 40 mg QDAY@2200 SILVANA Administration Hydromorphone HCl 0.5 mg 10/09/18 20:54 10/11/18 08:23 Dilaudid IV 0.5 mg Q3H PRN Administration Pain , Severe (7-10) Hydrophilic Ointment 1 applic 10/09/18 14:49 Vaseline Lip Therapy TP Q2HR PRN Dry Lips Lacosamide 200 mg 10/13/18 10:00 Vimpat PO Q12HR SILVANA Lamotrigine 300 mg 10/09/18 22:00 10/12/18 21:33 Lamictal PO 300 mg BID SILVANA Administration Levetiracetam 1,500 mg 10/13/18 10:00 Keppra PO BID SILVANA Lorazepam 2 mg 10/11/18 12:34 Ativan IV Q4H PRN Seizures Metoclopramide HCl 10 mg 10/09/18 20:54 Reglan IV Q6H PRN Nausea And Vomiting Multi-Ingred Cream/Lotion/Oil/Oint 1 applic 10/09/18 14:49 Artificial Tears Ophth Oint OU Q4HR PRN Dry Eye(s) Ondansetron HCl 4 mg 10/09/18 20:54 Zofran IV Q8H PRN Nausea And Vomiting Sodium Chloride 10 ml 10/09/18 22:00 10/12/18 21:35 Sodium Chloride Flush Syringe 10 Ml IV 10 ml BID SILVANA Administration Sodium Chloride 10 ml 10/09/18 20:54 10/10/18 16:16 Sodium Chloride Flush Syringe 10 Ml IV 10 ml PRN PRN Administration LINE FLUSH Topiramate 50 mg 10/09/18 22:00 10/12/18 21:34 Topamax PO 50 mg Q12HR SILVANA Administration Trazodone HCl 50 mg 10/10/18 18:00 10/12/18 21:34 Desyrel PO 50 mg QPM SILVANA Administration Nutrition/Malnutrition Assess - Dietary Evaluation Nutrition/Malnutrition Findings: Nutrition Notes Start: 10/10/18 07:56 Freq: Status: Active Protocol: Document 10/12/18 12:19 [facility] (Rec: 10/12/18 12:25 [facility] SRW- [id number]) Nutrition Notes Initial or Follow up Reassessment Other Pertinent Diagnosis Status epilepticus, s/p acute resp failure Current Diet [facility] soft Labs/Tests K 3.5 Pertinent Medications Mg sulfate x 1 dose Height 5 ft 8 in Weight 117.934 kg [place] Body Weight (kg) 70.00 BMI 39.5 Subjective/Other Information Pt extubated yesterday afternoon. Diet advanced for breakfast this am. He has not eaten yet, as he requires meal time assistance (pt legally blind). Pt reports good appetite. Burn Absent Trauma Absent #1 Nutrition Diagnosis Inadequate oral intake As Evidenced by Signs and Symptoms diet advanced, however, pt has not eaten yet Diagnosis Progress(for reassessment Continues documentation) Is patient on ventilator? No Is Patient Ambulatory and/or Out of Bed No REE-([facility]-confined to bed) 2561.688 Kcal/Kg value to use for calculation 17 Approximate Energy Requirements Using 2005 kcal/Kg Calculation Used for Recommendations Kcal/kg Additional Notes Pro needs 2g/kg IBW: 140g/day Fluid needs 1ml/kcal Nutrition Intervention Change Diet Order: Continue current diet order Goal #1 PO intake to meet at least 75% of nutrient needs Follow-Up By: 10/15/18 Additional Comments F/U: PO intakes
[2018-10-13] MEDS ORDERED: K-DUR PO ONE ×2 (12:00→20:00)
--- NOTE | 2018-10-13 16:36 | Progress Note ---
Subjective Date of service: 10/13/18 Principal diagnosis: seizures, status epilepticus,acute respiratory Interval history: transfer to floor no further seizures are present check EEG Objective - Vital Sign Vital Signs - 12hr 10/13/18 10/13/18 10/13/18 08:00 08:03 08:04 Temperature 98.2 F Pulse Rate 71 Pulse Rate [ 54 L Right Dorsalis Pedis] Respiratory 18 20 Rate Blood Pressure 125/54 Blood Pressure [Left] O2 Sat by Pulse 94 97 Oximetry 10/13/18 10/13/18 10/13/18 10:00 12:30 12:32 Temperature 97.6 F 97.6 F Pulse Rate 75 75 Pulse Rate [ Right Dorsalis Pedis] Respiratory 15 Rate Blood Pressure Blood Pressure 116/58 [Left] O2 Sat by Pulse 95 Oximetry 10/13/18 10/13/18 16:28 16:30 Temperature 98.0 F Pulse Rate 72 Pulse Rate [ Right Dorsalis Pedis] Respiratory 20 Rate Blood Pressure 100/60 Blood Pressure [Left] O2 Sat by Pulse 98 Oximetry - Laboratory Findings CBC and BMP: 10/13/18 05:37 10/13/18 05:37 Abnormal Lab Findings: Abnormal Labs 10/09/18 10/09/18 10/09/18 15:13 15:13 15:13 WBC 16.8 H Hgb 15.7 H Hct 46.2 H MCHC RDW 12.8 L Plt Count 494 H Lymph % (Auto) [place] % (Auto) Eos % (Auto) [place] # Eos # Seg Neutrophils % Seg Neuts % (Manual) 74.0 H Monocytes % (Manual) 8.0 H Seg Neutrophils # Seg Neutrophils # Man 12.4 H Monocytes # (Manual) 1.3 H APTT 23.0 L POC ABG pH POC ABG pO2 VBG pH Potassium Chloride Carbon Dioxide BUN Creatinine Glucose POC Glucose Lactic Acid 4.60 H* Ammonia CK-MB (CK-2) CK-MB (CK-2) Rel Index Total Protein Albumin 10/09/18 10/09/18 10/09/18 15:13 15:13 15:13 WBC Hgb Hct MCHC RDW Plt Count Lymph % (Auto) [place] % (Auto) Eos % (Auto) [place] # Eos # Seg Neutrophils % Seg Neuts % (Manual) Monocytes % (Manual) Seg Neutrophils # Seg Neutrophils # Man Monocytes # (Manual) APTT POC ABG pH POC ABG pO2 VBG pH 7.267 L Potassium 5.1 H Chloride 86.4 L Carbon Dioxide 19 L BUN 8 L Creatinine Glucose 128 H POC Glucose Lactic Acid Ammonia CK-MB (CK-2) 8.3 H CK-MB (CK-2) Rel Index 6.3 H Total Protein Albumin 10/09/18 10/09/18 10/09/18 15:23 16:01 18:19 WBC Hgb Hct MCHC RDW Plt Count Lymph % (Auto) [place] % (Auto) Eos % (Auto) [place] # Eos # Seg Neutrophils % Seg Neuts % (Manual) Monocytes % (Manual) Seg Neutrophils # Seg Neutrophils # Man Monocytes # (Manual) APTT POC ABG pH 7.257 L POC ABG pO2 111 H VBG pH Potassium Chloride Carbon Dioxide BUN Creatinine Glucose POC Glucose Lactic Acid 2.80 H* Ammonia 111.0 H CK-MB (CK-2) CK-MB (CK-2) Rel Index Total Protein Albumin 10/09/18 10/10/18 10/10/18 20:05 04:03 04:19 WBC 15.6 H Hgb Hct MCHC RDW 12.5 L Plt Count Lymph % (Auto) [place] % (Auto) Eos % (Auto) [place] # 1.1 H Eos # Seg Neutrophils % 74.8 H Seg Neuts % (Manual) Monocytes % (Manual) Seg Neutrophils # 11.6 H Seg Neutrophils # Man Monocytes # (Manual) APTT POC ABG pH 7.302 L POC ABG pO2 132 H VBG pH Potassium Chloride Carbon Dioxide BUN Creatinine Glucose POC Glucose Lactic Acid 2.20 H* Ammonia CK-MB (CK-2) CK-MB (CK-2) Rel Index Total Protein Albumin 10/10/18 10/10/18 10/11/18 04:19 17:53 08:26 WBC Hgb Hct MCHC RDW Plt Count Lymph % (Auto) [place] % (Auto) Eos % (Auto) [place] # Eos # Seg Neutrophils % Seg Neuts % (Manual) Monocytes % (Manual) Seg Neutrophils # Seg Neutrophils # Man Monocytes # (Manual) APTT POC ABG pH POC ABG pO2 VBG pH Potassium Chloride 110.1 H Carbon Dioxide 19 L 20 L BUN 7 L 5 L Creatinine 0.7 L 0.7 L Glucose 118 H 112 H POC Glucose 106 H Lactic Acid Ammonia CK-MB (CK-2) CK-MB (CK-2) Rel Index Total Protein 6.1 L D Albumin 3.5 L 10/11/18 10/12/18 10/12/18 Unknown 06:29 06:29 WBC Hgb Hct MCHC 35 H RDW 12.6 L 12.3 L Plt Count Lymph % (Auto) 37.9 H [place] % (Auto) 10.6 H 10.4 H Eos % (Auto) 6.0 H [place] # 1.0 H 0.9 H Eos # 0.5 H Seg Neutrophils % Seg Neuts % (Manual) Monocytes % (Manual) Seg Neutrophils # Seg Neutrophils # Man Monocytes # (Manual) APTT POC ABG pH POC ABG pO2 VBG pH Potassium 3.5 L Chloride 111.1 H Carbon Dioxide 20 L BUN 4 L Creatinine 0.7 L Glucose 103 H POC Glucose Lactic Acid Ammonia CK-MB (CK-2) CK-MB (CK-2) Rel Index Total Protein Albumin 10/13/18 10/13/18 05:37 05:37 WBC Hgb Hct MCHC RDW 12.6 L Plt Count Lymph % (Auto) [place] % (Auto) 11.6 H Eos % (Auto) 4.8 H [place] # 1.0 H Eos # Seg Neutrophils % Seg Neuts % (Manual) Monocytes % (Manual) Seg Neutrophils # Seg Neutrophils # Man Monocytes # (Manual) APTT POC ABG pH POC ABG pO2 VBG pH Potassium 3.5 L Chloride 110.2 H Carbon Dioxide 20 L BUN 7 L Creatinine Glucose POC Glucose Lactic Acid Ammonia CK-MB (CK-2) CK-MB (CK-2) Rel Index Total Protein Albumin
[2018-10-13] MEDS: LOVENOX SUB-Q SCH (22:57)
[2018-10-13] MEDS: DESYREL PO SCH (22:58)
--- NOTE | 2018-10-14 10:30 | XRay Report ---
ABDOMEN RADIOGRAPHS INDICATION: Nausea, vomiting. COMPARISON: None. FINDINGS: Frontal abdominal radiographs demonstrate nonobstructive bowel gas pattern. Mild colonic stool. No focal suspicious calcifications, pneumatosis or pneumoperitoneum. Lung bases not imaged. EKG leads. Unremarkable bones. CONCLUSION: No acute abdominal radiographic abnormality, as described. Thank you for the opportunity to participate in this patient's care.
[2018-10-14] MEDS: KEPPRA PO SCH ×2 (10:32→22:00)
[2018-10-14] MEDS: LaMICtal PO SCH ×2 (10:33→22:01)
[2018-10-14] MEDS: XANAX PO SCH ×2 (10:33→22:01)
[2018-10-14] MEDS: VIMPAT PO SCH ×2 (10:33→22:01)
[2018-10-14] MEDS: SODIUM CHLORIDE FLUSH SYRINGE 10 ML IV SCH ×2 (10:33→20:59)
[2018-10-14] MEDS: TOPAMAX PO SCH ×2 (11:16→22:01)
--- NOTE | 2018-10-14 11:37 | Consultation ---
History of Present Illness Consult date: 10/14/18 History of present illness: Pt is a 28 year old male with PMHx pf retinitis pigmentosa, legally blind, seizure disorder, ? newly diagnosed brain degenerative disease, urinary incontinence, impair mobility, bedridden. He is lethargic on evaluation with no family at bedside and thus HPI is obtained per the chart. He was brought to the ER by EMS on 10/09 for evaluation of seizure activity. Following arrival to ED, he was also found to have acute respiratory failure and required intubation. He was extubated on 10/12. He was noted to have pauses on telemetry and thus card iology has been consulted. Review of telemetry shows a total of 3 pauses - one pause appears to be nonconducted PAC and the other two pauses appear to be sinus pauses, longest pause was 2.4sec. Past History Past Medical History: other (seizures) Past Surgical History: Other (unable to obtain but known Vagus nerve stimulator seen on CXR) Social history: other (Lives with mother) Family history: other (unable to obtain) Medications and Allergies Allergies Allergy/AdvReac Type Severity Reaction Status Date / Time Penicillins Allergy Angioedema Verified 01/01/18 13:03 shellfish derived Allergy Swelling Verified 01/01/18 13:03 Home Medications Medication Instructions Recorded Confirmed Last Taken Type ALPRAZolam [Xanax TAB] 0.5 mg PO QPM 10/09/18 10/09/18 Unknown History Lacosamide [Vimpat] 200 mg PO BID 10/09/18 10/09/18 Unknown History Melatonin 10 mg PO QPM 10/09/18 10/09/18 Unknown History Ranitidine HCl [Zantac] 150 mg PO BID 10/09/18 10/09/18 Unknown History Topiramate [Topamax] 50 mg PO BID 10/09/18 10/09/18 Unknown History lamoTRIgine [Lamictal] 300 mg PO BID 10/09/18 10/09/18 Unknown History levETIRAcetam [Keppra TAB] 1,500 mg PO BID 10/09/18 10/09/18 Unknown History traZODone [Desyrel] 50 mg PO QPM 10/09/18 10/09/18 Unknown History Xanax TAB 0.5 mg PO BID 10/12/18 10/12/18 Unknown History Active Meds: Active Medications Alprazolam (Xanax) 0.5 mg PO Q12HR [facility] Last Admin: 10/14/18 10:33 Dose: 0.5 mg Documented by: Enoxaparin Sodium (Lovenox) 40 mg SUB-Q QDAY@2200 [facility] Last Admin: 10/13/18 22:57 Dose: 40 mg Documented by: Hydromorphone HCl (Dilaudid) 0.5 mg IV Q3H PRN PRN Reason: Pain , Severe (7-10) Last Admin: 10/11/18 08:23 Dose: 0.5 mg Documented by: Hydrophilic Ointment (Vaseline Lip Therapy) 1 applic TP Q2HR PRN PRN Reason: Dry Lips Lacosamide (Vimpat) 200 mg PO Q12HR [facility] Last Admin: 10/14/18 10:33 Dose: 200 mg Documented by: Lamotrigine (Lamictal) 300 mg PO BID [facility] Last Admin: 10/14/18 10:33 Dose: 300 mg Documented by: Levetiracetam (Keppra) 1,500 mg PO BID [facility] Last Admin: 10/14/18 10:32 Dose: 1,500 mg Documented by: Lorazepam (Ativan) 2 mg IV Q4H PRN PRN Reason: Seizures Metoclopramide HCl (Reglan) 10 mg IV Q6H PRN PRN Reason: Nausea And Vomiting Multi-Ingred Cream/Lotion/Oil/Oint (Artificial Tears Ophth Oint) 1 applic OU Q4HR PRN PRN Reason: Dry Eye(s) Ondansetron HCl (Zofran) 4 mg IV Q8H PRN PRN Reason: Nausea And Vomiting Last Admin: 10/14/18 09:02 Dose: 4 mg Documented by: Sodium Chloride (Sodium Chloride Flush Syringe 10 Ml) 10 ml IV BID [facility] Last Admin: 10/14/18 10:33 Dose: 10 ml Documented by: Sodium Chloride (Sodium Chloride Flush Syringe 10 Ml) 10 ml IV PRN PRN PRN Reason: LINE FLUSH Last Admin: 10/10/18 16:16 Dose: 10 ml Documented by: Topiramate (Topamax) 50 mg PO Q12HR [facility] Last Admin: 10/14/18 11:16 Dose: 50 mg Documented by: Trazodone HCl (Desyrel) 50 mg PO QHS [facility] Last Admin: 10/13/18 22:58 Dose: 50 mg Documented by: Review of Systems ROS unobtainable: due to mental status Physical Examination Vital Signs Pulse Resp Pulse Ox 116 H 29 H 99 10/09/18 14:44 10/09/18 14:44 10/09/18 14:44 General appearance: other (lethargic, withdrawn) Neck: Positive: neck supple, trachea midline Cardiac: Positive: Reg Rate and Rhythm, S1/S2 Lungs: Positive: Decreased Breath Sounds Neuro: Positive: Other (lethargic, withdrawn) Abdomen: Negative: Tender Skin: Negative: Rash Musculoskeletal: No Pain Results 10/13/18 05:37 10/14/18 06:07 Comprehensive Metabolic Panel 10/14/18 Range/Units 06:07 Potassium 4.1 (3.6-5.0) mmol/L - Imaging and Cardiology Echo: pending EKG: report reviewed, image reviewed EKG interpretations - Telemetry EKG Rhythm: Sinus Rhythm - EKG Sinus rhythms and dysrhythmias: sinus rhythm AV and intraventricular conduction: right bundle branch block Assessment and Plan Pt was noted to have pauses on telemetry and thus cardiology has been consulted. Review of telemetry shows a total of 3 pauses - one pause appears to be nonconducted PAC and the other two pauses appear to be sinus pauses, longest pause was 2.4sec. Obtain thyroid profile and cont to hold AV preethi blocking agents. F/u echo. Cont telemetry. Replete lytes PRN. The patient has been seen in conjunction with Dr. Abreu who agrees with the assessment and plan of care. - Patient Problems (1) Seizure disorder Current Visit: Yes Status: Chronic (2) Sinus pause Current Visit: Yes Status: Acute (3) Respiratory failure Current Visit: Yes Status: Acute Qualifiers: Chronicity: acute Respiratory failure complication: unspecified whether with hypoxia or hypercapnia Qualified Code(s): J96.00 - Acute respiratory failure, unspecified whether with hypoxia or hypercapnia Plan to address problem: extubated (4) Pneumonia Current Visit: Yes Status: Suspected (5) Hypokalemia Current Visit: Yes Status: Acute (6) Illicit drug use Current Visit: Yes Status: Acute Plan to address problem: toxicology positive for PCP
--- NOTE | 2018-10-14 16:36 | Progress Note ---
Assessment and Plan Assessment and plan: Patient is a 28 year old man with a history of man with a history of retinitis pigmentosa, legally blind, seizure disorder, ?newly diagnosed brain degenerative disease, urinary incontinence, impair mobility, bedridden who presents with a status epilepticus and acute respiratory failure requiring intubation and now extubated. Pt was noted to have pauses on telemetry and thus cardiology has been consulted. Review of telemetry shows a total of 3 pauses - one pause appears to be nonconducted PAC and the other two pauses appear to be sinus pauses, longest pause was 2.4sec. Obtain thyroid profile and cont to hold AV preethi blocking agents. F/u echo. Cont telemetry. Replete lytes PRN. -Epilepticus seizure: anti-epileptic -Cardiac Sinus pause, 2.1 yesterday: Consult Cardiology -Acute respiratory failure, extubated: continue O2 -Pneumonia: iv abx -Hypokalemia resolved -Illicit drug use, toxicology positive for PCP History Interval history: Patient was seen and examined. Follow-up on current diagnosis of SZ. No overnight events reported to me. Patient denies any chest pain, shortness breath, nausea/vomiting or severe headaches. Imaging, nursing note, chart, labs and old chart reviewed. Discussed with patient. Hospitalist Physical - Physical exam Narrative exam: Gen: ill appearing, HEENT:, upward gaze, OP Clear Neck: supple, no adenopathy, no thyromegaly, no JVD CVS/Heart: RRR, normal S1S2, pulses present bilaterally Chest/Lungs: CTA B, Symmetrical chest expansion, good air entry bilaterally GI/Abdomen: soft, NTND, good bowel sounds, no guarding or rebound /Bladder: no suprapubic tenderness, no CVA or paraspinal tenderness Extermity/Skin: no c/c/e, no obvious rash MSK: FROM x 4 Neuro: CN 2-12 grossly intact, no new focal deficits Psych: calm, developmental delay - Constitutional Vitals: Temp Pulse Resp BP Pulse Ox 97.7 F 92 H 18 120/69 95 10/14/18 12:15 10/14/18 12:15 10/14/18 12:15 10/14/18 12:15 10/14/18 12:15 General appearance: Present: other (lethargic, withdrawn) Results - Labs CBC & Chem 7: 10/13/18 05:37 10/14/18 06:07 Labs: Laboratory Last Values WBC 8.5 K/mm3 (4.5-11.0) 10/13/18 05:37 RBC 4.19 M/mm3 (3.65-5.03) 10/13/18 05:37 Hgb 13.0 gm/dl (11.8-15.2) 10/13/18 05:37 Hct 38.0 % (35.5-45.6) 10/13/18 05:37 MCV 91 fl (84-94) 10/13/18 05:37 MCH 31 pg (28-32) 10/13/18 05:37 MCHC 34 % (32-34) 10/13/18 05:37 RDW 12.6 % (13.2-15.2) L 10/13/18 05:37 Plt Count 345 K/mm3 (140-440) 10/13/18 05:37 Lymph % (Auto) 32.5 % (13.4-35.0) 10/13/18 05:37 Hayes % (Auto) 11.6 % (0.0-7.3) H 10/13/18 05:37 Eos % (Auto) 4.8 % (0.0-4.3) H 10/13/18 05:37 Baso % (Auto) 0.8 % (0.0-1.8) 10/13/18 05:37 Lymph # 2.8 K/mm3 (1.2-5.4) 10/13/18 05:37 Hayes # 1.0 K/mm3 (0.0-0.8) H 10/13/18 05:37 Eos # 0.4 K/mm3 (0.0-0.4) 10/13/18 05:37 Baso # 0.1 K/mm3 (0.0-0.1) 10/13/18 05:37 Add Manual Diff Complete 10/09/18 15:13 Total Counted 100 10/09/18 15:13 Seg Neutrophils % 50.3 % (40.0-70.0) 10/13/18 05:37 Seg Neuts % (Manual) 74.0 % (40.0-70.0) H 10/09/18 15:13 Band Neutrophils % 3.0 % 10/09/18 15:13 Lymphocytes % (Manual) 14.0 % (13.4-35.0) 10/09/18 15:13 Reactive Lymphs % (Man) 0 % 10/09/18 15:13 Monocytes % (Manual) 8.0 % (0.0-7.3) H 10/09/18 15:13 Eosinophils % (Manual) 1.0 % (0.0-4.3) 10/09/18 15:13 Basophils % (Manual) 0 % (0.0-1.8) 10/09/18 15:13 Metamyelocytes % 0 % 10/09/18 15:13 Myelocytes % 0 % 10/09/18 15:13 Promyelocytes % 0 % 10/09/18 15:13 Blast Cells % 0 % 10/09/18 15:13 Nucleated RBC % Not Reportable 10/09/18 15:13 Seg Neutrophils # 4.3 K/mm3 (1.8-7.7) 10/13/18 05:37 Seg Neutrophils # Man 12.4 K/mm3 (1.8-7.7) H 10/09/18 15:13 Band Neutrophils # 0.5 K/mm3 10/09/18 15:13 Lymphocytes # (Manual) 2.4 K/mm3 (1.2-5.4) 10/09/18 15:13 Abs React Lymphs (Man) 0.0 K/mm3 10/09/18 15:13 Monocytes # (Manual) 1.3 K/mm3 (0.0-0.8) H 10/09/18 15:13 Eosinophils # (Manual) 0.2 K/mm3 (0.0-0.4) 10/09/18 15:13 Basophils # (Manual) 0.0 K/mm3 (0.0-0.1) 10/09/18 15:13 Metamyelocytes # 0.0 K/mm3 10/09/18 15:13 Myelocytes # 0.0 K/mm3 10/09/18 15:13 Promyelocytes # 0.0 K/mm3 10/09/18 15:13 Blast Cells # 0.0 K/mm3 10/09/18 15:13 WBC Morphology Not Reportable 10/09/18 15:13 Hypersegmented Neuts Not Reportable 10/09/18 15:13 Hyposegmented Neuts Not Reportable 10/09/18 15:13 Hypogranular Neuts Not Reportable 10/09/18 15:13 Smudge Cells Not Reportable 10/09/18 15:13 Toxic Granulation Not Reportable 10/09/18 15:13 Toxic Vacuolation Not Reportable 10/09/18 15:13 Dohle Bodies Not Reportable 10/09/18 15:13 Pelger-Huet Anomaly Not Reportable 10/09/18 15:13 Nereida Rods Not Reportable 10/09/18 15:13 Platelet Estimate Consistent w auto 10/09/18 15:13 Clumped Platelets Not Reportable 10/09/18 15:13 Plt Clumps, EDTA Not Reportable 10/09/18 15:13 Large Platelets Not Reportable 10/09/18 15:13 Giant Platelets Not Reportable 10/09/18 15:13 Platelet Satelliting Not Reportable 10/09/18 15:13 Plt Morphology Comment Not Reportable 10/09/18 15:13 RBC Morphology Normal 10/09/18 15:13 Dimorphic RBCs Not Reportable 10/09/18 15:13 Polychromasia Not Reportable 10/09/18 15:13 Hypochromasia Not Reportable 10/09/18 15:13 Poikilocytosis Not Reportable 10/09/18 15:13 Anisocytosis Not Reportable 10/09/18 15:13 Microcytosis Not Reportable 10/09/18 15:13 Macrocytosis Not Reportable 10/09/18 15:13 Spherocytes Not Reportable 10/09/18 15:13 Pappenheimer Bodies Not Reportable 10/09/18 15:13 Sickle Cells Not Reportable 10/09/18 15:13 Target Cells Not Reportable 10/09/18 15:13 Tear Drop Cells Not Reportable 10/09/18 15:13 Ovalocytes Not Reportable 10/09/18 15:13 Helmet Cells Not Reportable 10/09/18 15:13 [place] Bodies Not Reportable 10/09/18 15:13 [place] Rings Not Reportable 10/09/18 15:13 [place] Cells Not Reportable 10/09/18 15:13 Bite Cells Not Reportable 10/09/18 15:13 Crenated Cell Not Reportable 10/09/18 15:13 Elliptocytes Not Reportable 10/09/18 15:13 Acanthocytes (Spur) Not Reportable 10/09/18 15:13 Rouleaux Not Reportable 10/09/18 15:13 Hemoglobin C Crystals Not Reportable 10/09/18 15:13 Schistocytes Not Reportable 10/09/18 15:13 Malaria parasites Not Reportable 10/09/18 15:13 Miguel Bodies Not Reportable 10/09/18 15:13 Hem Pathologist Commnt No 10/09/18 15:13 PT 13.4 Sec. (12.2-14.9) 10/09/18 15:13 INR 0.96 (0.87-1.13) 10/09/18 15:13 APTT 23.0 Sec. (24.2-36.6) L 10/09/18 15:13 POC ABG pH 7.389 (7.35-7.45) 10/11/18 04:05 POC ABG pCO2 35.6 (35-45) 10/11/18 04:05 POC ABG pO2 89 (80-105) 10/11/18 04:05 POC ABG HCO3 21.5 (22-26 mml/L) 10/11/18 04:05 POC ABG Total CO2 23 (23-27mmol/L) 10/11/18 04:05 POC ABG O2 Sat 97 10/11/18 04:05 POC ABG Base Excess -3 ((-2) - (+3)mmol/L) 10/11/18 04:05 VBG pH 7.267 (7.320-7.420) L 10/09/18 15:13 FiO2 25 % 10/11/18 04:05 Sodium 142 mmol/L (137-145) 10/13/18 05:37 Potassium 4.1 mmol/L (3.6-5.0) 10/14/18 06:07 Chloride 110.2 mmol/L (98-107) H 10/13/18 05:37 Carbon Dioxide 20 mmol/L (22-30) L 10/13/18 05:37 Anion Gap 15 mmol/L 10/13/18 05:37 BUN 7 mg/dL (9-20) L 10/13/18 05:37 Creatinine 0.8 mg/dL (0.8-1.5) 10/13/18 05:37 Estimated GFR > 60 ml/min 10/13/18 05:37 BUN/Creatinine Ratio 9 % 10/13/18 05:37 Glucose 93 mg/dL (75-100) 10/13/18 05:37 POC Glucose 99 (70-105) 10/11/18 10:26 Lactic Acid 1.50 mmol/L (0.7-2.0) 10/10/18 00:56 Calcium 8.7 mg/dL (8.4-10.2) 10/13/18 05:37 Phosphorus 3.60 mg/dL (2.5-4.5) D 10/12/18 06:29 Magnesium 1.80 mg/dL (1.7-2.3) 10/14/18 06:07 Total Bilirubin 0.20 mg/dL (0.1-1.2) 10/10/18 04:19 Direct Bilirubin < 0.2 mg/dL (0-0.2) 10/09/18 15:13 Indirect Bilirubin 0.0 mg/dL 10/09/18 15:13 AST 26 units/L (5-40) 10/10/18 04:19 ALT 33 units/L (7-56) 10/10/18 04:19 Alkaline Phosphatase 83 units/L (35-129) 10/10/18 04:19 Ammonia 111.0 umol/L (25-60) H 10/09/18 15:23 Total Creatine Kinase 131 units/L (55-170) 10/09/18 15:13 CK-MB (CK-2) 8.3 ng/mL (0.0-4.0) H 10/09/18 15:13 CK-MB (CK-2) Rel Index 6.3 (0-4) H 10/09/18 15:13 NT-Pro-B Natriuret Pep 163.1 pg/mL (0-450) 10/09/18 15:13 Total Protein 6.1 g/dL (6.3-8.2) L D 10/10/18 04:19 Albumin 3.5 g/dL (3.9-5) L 10/10/18 04:19 Albumin/Globulin Ratio 1.3 % 10/10/18 04:19 Lipase 24 units/L (13-60) 10/09/18 15:13 TSH 1.250 mlU/mL (0.270-4.200) 10/14/18 11:53 Free T4 1.33 ng/dL (0.76-1.46) 10/14/18 11:53 Urine Color Straw (Yellow) 10/09/18 Unknown Urine Turbidity Clear (Clear) 10/09/18 Unknown Urine pH 7.0 (5.0-7.0) 10/09/18 Unknown Ur Specific Ideal 1.006 (1.003-1.030) 10/09/18 Unknown Urine Protein <15 mg/dl mg/dL (Negative) 10/09/18 Unknown Urine Glucose (UA) Neg mg/dL (Negative) 10/09/18 Unknown Urine Ketones Neg mg/dL (Negative) 10/09/18 Unknown Urine Blood Neg (Negative) 10/09/18 Unknown Urine Nitrite Neg (Negative) 10/09/18 Unknown Urine Bilirubin Neg (Negative) 10/09/18 Unknown Urine Urobilinogen < 2.0 mg/dL (<2.0) 10/09/18 Unknown Ur Leukocyte Esterase Neg (Negative) 10/09/18 Unknown Urine WBC (Auto) 0.0 /HPF (0.0-6.0) 10/09/18 Unknown Urine RBC (Auto) < 1.0 /HPF (0.0-6.0) 10/09/18 Unknown U Epithel Cells (Auto) < 1.0 /HPF (0-13.0) 10/09/18 Unknown Active Medications - Current Medications Current Medications: Generic Name Dose Route Start Last Admin Trade Name Freq PRN Reason Stop Dose Admin Alprazolam 0.5 mg 10/12/18 22:00 10/14/18 10:33 Xanax PO 0.5 mg Q12HR SILVANA Administration Enoxaparin Sodium 40 mg 10/10/18 22:00 10/13/18 22:57 Lovenox SUB-Q 40 mg QDAY@2200 SILVANA Administration Hydromorphone HCl 0.5 mg 10/09/18 20:54 10/11/18 08:23 Dilaudid IV 0.5 mg Q3H PRN Administration Pain , Severe (7-10) Hydrophilic Ointment 1 applic 10/09/18 14:49 Vaseline Lip Therapy TP Q2HR PRN Dry Lips Lacosamide 200 mg 10/13/18 10:00 10/14/18 10:33 Vimpat PO 200 mg Q12HR SILVANA Administration Lamotrigine 300 mg 10/09/18 22:00 10/14/18 10:33 Lamictal PO 300 mg BID SILVANA Administration Levetiracetam 1,500 mg 10/13/18 10:00 10/14/18 10:32 Keppra PO 1,500 mg BID SILVANA Administration Lorazepam 2 mg 10/11/18 12:34 Ativan IV Q4H PRN Seizures Metoclopramide HCl 10 mg 10/09/18 20:54 Reglan IV Q6H PRN Nausea And Vomiting Multi-Ingred Cream/Lotion/Oil/Oint 1 applic 10/09/18 14:49 Artificial Tears Ophth Oint OU Q4HR PRN Dry Eye(s) Ondansetron HCl 4 mg 10/09/18 20:54 10/14/18 09:02 Zofran IV 4 mg Q8H PRN Administration Nausea And Vomiting Sodium Chloride 10 ml 10/09/18 22:00 10/14/18 10:33 Sodium Chloride Flush Syringe 10 Ml IV 10 ml BID SILVANA Administration Sodium Chloride 10 ml 10/09/18 20:54 10/10/18 16:16 Sodium Chloride Flush Syringe 10 Ml IV 10 ml PRN PRN Administration LINE FLUSH Topiramate 50 mg 10/09/18 22:00 10/14/18 11:16 Topamax PO 50 mg Q12HR SILVANA Administration Trazodone HCl 50 mg 10/13/18 22:00 10/13/18 22:58 Desyrel PO 50 mg QHS SILVANA Administration Nutrition/Malnutrition Assess - Dietary Evaluation Nutrition/Malnutrition Findings: Nutrition Notes Start: 10/10/18 07:56 Freq: Status: Active Protocol: Document 10/12/18 12:19 ALCIDES (Rec: 10/12/18 12:25 IDRAN [email or web address]) Nutrition Notes Initial or Follow up Reassessment Other Pertinent Diagnosis Status epilepticus, s/p acute resp failure Current Diet [facility] soft Labs/Tests K 3.5 Pertinent Medications Mg sulfate x 1 dose Height 5 ft 8 in Weight 117.934 kg [place] Body Weight (kg) 70.00 BMI 39.5 Subjective/Other Information Pt extubated yesterday afternoon. Diet advanced for breakfast this am. He has not eaten yet, as he requires meal time assistance (pt legally blind). Pt reports good appetite. Burn Absent Trauma Absent #1 Nutrition Diagnosis Inadequate oral intake As Evidenced by Signs and Symptoms diet advanced, however, pt has not eaten yet Diagnosis Progress(for reassessment Continues documentation) Is patient on ventilator? No Is Patient Ambulatory and/or Out of Bed No REE-([facility]-confined to bed) 2561.688 Kcal/Kg value to use for calculation 17 Approximate Energy Requirements Using 2005 kcal/Kg Calculation Used for Recommendations Kcal/kg Additional Notes Pro needs 2g/kg IBW: 140g/day Fluid needs 1ml/kcal Nutrition Intervention Change Diet Order: Continue current diet order Goal #1 PO intake to meet at least 75% of nutrient needs Follow-Up By: 10/15/18 Additional Comments F/U: PO intakes
[2018-10-14] MEDS: LOVENOX SUB-Q SCH (20:59)
[2018-10-14] MEDS: DESYREL PO SCH (22:01)
[2018-10-15] MEDS ORDERED: TYLENOL PO PRN (10:14)
[2018-10-15] MEDS: KEPPRA PO SCH ×2 (10:21→21:36)
[2018-10-15] MEDS: VIMPAT PO SCH ×2 (10:21→21:37)
[2018-10-15] MEDS: LaMICtal PO SCH ×2 (10:22→21:37)
[2018-10-15] MEDS: XANAX PO SCH ×2 (10:22→21:37)
[2018-10-15] MEDS: TOPAMAX PO SCH ×2 (10:22→21:37)
[2018-10-15] MEDS: SODIUM CHLORIDE FLUSH SYRINGE 10 ML IV SCH ×2 (10:23→21:37)
--- NOTE | 2018-10-15 11:27 | Progress Note ---
Assessment and Plan Echo reviewed - EF 55-60%, mild LVH, restrictive diastolic filling, trace TR. Thyroid profile WNL. Pt noted to have infrequent sinus pauses on telemetry, longest pause 2.4 seconds. He appears to be symptomatic. He is in NSR with BPs WNL. Currently stable cardiac status. Nothing further to add from cardiac perspective at this time. Will sign off. Recommend pt follow up in our office with Dr. Abreu within 1-2 weeks of hospital discharge ([phone]). The patient has been seen in conjunction with Dr. Abreu who agrees with the as sessment and plan of care. - Patient Problems (1) Seizure disorder Current Visit: Yes Status: Chronic (2) Sinus pause Current Visit: Yes Status: Acute (3) Respiratory failure Current Visit: Yes Status: Acute Qualifiers: Chronicity: acute Respiratory failure complication: unspecified whether with hypoxia or hypercapnia Qualified Code(s): J96.00 - Acute respiratory failure, unspecified whether with hypoxia or hypercapnia (4) Pneumonia Current Visit: Yes Status: Suspected (5) Hypokalemia Current Visit: Yes Status: Acute (6) Illicit drug use Current Visit: Yes Status: Acute Subjective Date of service: 10/15/18 Principal diagnosis: seizures, status epilepticus,acute respiratory Interval history: pt resting in bed, no apparent distress. responding appropriately to commands. tele reviewed - in SR with one 2.1 sec pause at 3AM today. Objective Last Vital Signs Temp 98.0 F 10/15/18 07:50 Pulse 83 10/15/18 07:50 Resp 18 10/15/18 07:50 BP 135/75 10/15/18 07:50 Pulse Ox 98 10/15/18 07:50 - Physical Examination General: No Apparent Distress Neck: Positive: neck supple, trachea midline Cardiac: Positive: Reg Rate and Rhythm, S1/S2 Lungs: Positive: clear to auscultation Neuro: Positive: Grossly Intact Abdomen: Negative: Tender Skin: Negative: Rash Musculoskeletal: No Pain Extremities: Absent: edema - Imaging and Cardiology EKG: report reviewed, image reviewed Echo: report reviewed - Telemetry EKG Rhythm: Sinus Rhythm - EKG Sinus rhythms and dysrhythmias: sinus rhythm AV and intraventricular conduction: right bundle branch block
--- NOTE | 2018-10-15 15:30 | Progress Note ---
Assessment and Plan Assessment and plan: Patient is a 28 year old man with a history of man with a history of retinitis pigmentosa, legally blind, seizure disorder, ?newly diagnosed brain degenerative disease, urinary incontinence, impair mobility, bedridden who presents with a status epilepticus and acute respiratory failure requiring intubation and now extubated. Pt was noted to have pauses on telemetry and thus cardiology has been consulted. Review of telemetry shows a total of 3 pauses - one pause appears to be nonconducted PAC and the other two pauses appear to be sinus pauses, longest pause was 2.4sec. Obtain thyroid profile and cont to hold AV preethi blocking agents. F/u echo. Cont telemetry. Replete lytes PRN. 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 History Interval history: Patient was seen and examined. Follow-up on current diagnosis of SZ, +n/v. No overnight events reported to me. Patient denies any chest pain, shortness breath, or severe headaches. Imaging, nursing note, chart, labs and old chart reviewed. Discussed with patient. Mother at bedside. Hospitalist Physical - Physical exam Narrative exam: Gen: ill appearing, HEENT:, upward gaze, OP Clear Neck: supple, no adenopathy, no thyromegaly, no JVD CVS/Heart: RRR, normal S1S2, pulses present bilaterally Chest/Lungs: CTA B, Symmetrical chest expansion, good air entry bilaterally GI/Abdomen: soft, NTND, good bowel sounds, no guarding or rebound /Bladder: no suprapubic tenderness, no CVA or paraspinal tenderness Extermity/Skin: no c/c/e, no obvious rash MSK: FROM x 4 Neuro: CN 2-12 grossly intact, no new focal deficits Psych: calm, developmental delay - Constitutional Vitals: Temp Pulse Resp BP Pulse Ox 98.2 F 108 H 18 133/95 100 10/15/18 11:42 10/15/18 11:42 10/15/18 11:42 10/15/18 11:42 10/15/18 14:56 General appearance: Present: other (lethargic, withdrawn) Results - Labs CBC & Chem 7: 10/13/18 05:37 10/14/18 06:07 Labs: Laboratory Last Values WBC 8.5 K/mm3 (4.5-11.0) 10/13/18 05:37 RBC 4.19 M/mm3 (3.65-5.03) 10/13/18 05:37 Hgb 13.0 gm/dl (11.8-15.2) 10/13/18 05:37 Hct 38.0 % (35.5-45.6) 10/13/18 05:37 MCV 91 fl (84-94) 10/13/18 05:37 MCH 31 pg (28-32) 10/13/18 05:37 MCHC 34 % (32-34) 10/13/18 05:37 RDW 12.6 % (13.2-15.2) L 10/13/18 05:37 Plt Count 345 K/mm3 (140-440) 10/13/18 05:37 Lymph % (Auto) 32.5 % (13.4-35.0) 10/13/18 05:37 [place] % (Auto) 11.6 % (0.0-7.3) H 10/13/18 05:37 Eos % (Auto) 4.8 % (0.0-4.3) H 10/13/18 05:37 Baso % (Auto) 0.8 % (0.0-1.8) 10/13/18 05:37 Lymph # 2.8 K/mm3 (1.2-5.4) 10/13/18 05:37 [place] # 1.0 K/mm3 (0.0-0.8) H 10/13/18 05:37 Eos # 0.4 K/mm3 (0.0-0.4) 10/13/18 05:37 Baso # 0.1 K/mm3 (0.0-0.1) 10/13/18 05:37 Add Manual Diff Complete 10/09/18 15:13 Total Counted 100 10/09/18 15:13 Seg Neutrophils % 50.3 % (40.0-70.0) 10/13/18 05:37 Seg Neuts % (Manual) 74.0 % (40.0-70.0) H 10/09/18 15:13 Band Neutrophils % 3.0 % 10/09/18 15:13 Lymphocytes % (Manual) 14.0 % (13.4-35.0) 10/09/18 15:13 Reactive Lymphs % (Man) 0 % 10/09/18 15:13 Monocytes % (Manual) 8.0 % (0.0-7.3) H 10/09/18 15:13 Eosinophils % (Manual) 1.0 % (0.0-4.3) 10/09/18 15:13 Basophils % (Manual) 0 % (0.0-1.8) 10/09/18 15:13 Metamyelocytes % 0 % 10/09/18 15:13 Myelocytes % 0 % 10/09/18 15:13 Promyelocytes % 0 % 10/09/18 15:13 Blast Cells % 0 % 10/09/18 15:13 Nucleated RBC % Not Reportable 10/09/18 15:13 Seg Neutrophils # 4.3 K/mm3 (1.8-7.7) 10/13/18 05:37 Seg Neutrophils # Man 12.4 K/mm3 (1.8-7.7) H 10/09/18 15:13 Band Neutrophils # 0.5 K/mm3 10/09/18 15:13 Lymphocytes # (Manual) 2.4 K/mm3 (1.2-5.4) 10/09/18 15:13 Abs React Lymphs (Man) 0.0 K/mm3 10/09/18 15:13 Monocytes # (Manual) 1.3 K/mm3 (0.0-0.8) H 10/09/18 15:13 Eosinophils # (Manual) 0.2 K/mm3 (0.0-0.4) 10/09/18 15:13 Basophils # (Manual) 0.0 K/mm3 (0.0-0.1) 10/09/18 15:13 Metamyelocytes # 0.0 K/mm3 10/09/18 15:13 Myelocytes # 0.0 K/mm3 10/09/18 15:13 Promyelocytes # 0.0 K/mm3 10/09/18 15:13 Blast Cells # 0.0 K/mm3 10/09/18 15:13 WBC Morphology Not Reportable 10/09/18 15:13 Hypersegmented Neuts Not Reportable 10/09/18 15:13 Hyposegmented Neuts Not Reportable 10/09/18 15:13 Hypogranular Neuts Not Reportable 10/09/18 15:13 Smudge Cells Not Reportable 10/09/18 15:13 Toxic Granulation Not Reportable 10/09/18 15:13 Toxic Vacuolation Not Reportable 10/09/18 15:13 Dohle Bodies Not Reportable 10/09/18 15:13 Pelger-Huet Anomaly Not Reportable 10/09/18 15:13 Nereida Rods Not Reportable 10/09/18 15:13 Platelet Estimate Consistent w auto 10/09/18 15:13 Clumped Platelets Not Reportable 10/09/18 15:13 Plt Clumps, EDTA Not Reportable 10/09/18 15:13 Large Platelets Not Reportable 10/09/18 15:13 Giant Platelets Not Reportable 10/09/18 15:13 Platelet Satelliting Not Reportable 10/09/18 15:13 Plt Morphology Comment Not Reportable 10/09/18 15:13 RBC Morphology Normal 10/09/18 15:13 Dimorphic RBCs Not Reportable 10/09/18 15:13 Polychromasia Not Reportable 10/09/18 15:13 Hypochromasia Not Reportable 10/09/18 15:13 Poikilocytosis Not Reportable 10/09/18 15:13 Anisocytosis Not Reportable 10/09/18 15:13 Microcytosis Not Reportable 10/09/18 15:13 Macrocytosis Not Reportable 10/09/18 15:13 Spherocytes Not Reportable 10/09/18 15:13 Pappenheimer Bodies Not Reportable 10/09/18 15:13 Sickle Cells Not Reportable 10/09/18 15:13 Target Cells Not Reportable 10/09/18 15:13 Tear Drop Cells Not Reportable 10/09/18 15:13 Ovalocytes Not Reportable 10/09/18 15:13 Helmet Cells Not Reportable 10/09/18 15:13 Golden-Rafael Gonzalez Bodies Not Reportable 10/09/18 15:13 [place] Rings Not Reportable 10/09/18 15:13 Northrop Cells Not Reportable 10/09/18 15:13 Bite Cells Not Reportable 10/09/18 15:13 Crenated Cell Not Reportable 10/09/18 15:13 Elliptocytes Not Reportable 10/09/18 15:13 Acanthocytes (Spur) Not Reportable 10/09/18 15:13 Rouleaux Not Reportable 10/09/18 15:13 Hemoglobin C Crystals Not Reportable 10/09/18 15:13 Schistocytes Not Reportable 10/09/18 15:13 Malaria parasites Not Reportable 10/09/18 15:13 Miguel Bodies Not Reportable 10/09/18 15:13 Hem Pathologist Commnt No 10/09/18 15:13 PT 13.4 Sec. (12.2-14.9) 10/09/18 15:13 INR 0.96 (0.87-1.13) 10/09/18 15:13 APTT 23.0 Sec. (24.2-36.6) L 10/09/18 15:13 POC ABG pH 7.389 (7.35-7.45) 10/11/18 04:05 POC ABG pCO2 35.6 (35-45) 10/11/18 04:05 POC ABG pO2 89 (80-105) 10/11/18 04:05 POC ABG HCO3 21.5 (22-26 mml/L) 10/11/18 04:05 POC ABG Total CO2 23 (23-27mmol/L) 10/11/18 04:05 POC ABG O2 Sat 97 10/11/18 04:05 POC ABG Base Excess -3 ((-2) - (+3)mmol/L) 10/11/18 04:05 VBG pH 7.267 (7.320-7.420) L 10/09/18 15:13 FiO2 25 % 10/11/18 04:05 Sodium 142 mmol/L (137-145) 10/13/18 05:37 Potassium 4.1 mmol/L (3.6-5.0) 10/14/18 06:07 Chloride 110.2 mmol/L (98-107) H 10/13/18 05:37 Carbon Dioxide 20 mmol/L (22-30) L 10/13/18 05:37 Anion Gap 15 mmol/L 10/13/18 05:37 BUN 7 mg/dL (9-20) L 10/13/18 05:37 Creatinine 0.8 mg/dL (0.8-1.5) 10/13/18 05:37 Estimated GFR > 60 ml/min 10/13/18 05:37 BUN/Creatinine Ratio 9 % 10/13/18 05:37 Glucose 93 mg/dL (75-100) 10/13/18 05:37 POC Glucose 99 (70-105) 10/11/18 10:26 Lactic Acid 1.50 mmol/L (0.7-2.0) 10/10/18 00:56 Calcium 8.7 mg/dL (8.4-10.2) 10/13/18 05:37 Phosphorus 3.60 mg/dL (2.5-4.5) D 10/12/18 06:29 Magnesium 1.80 mg/dL (1.7-2.3) 10/14/18 06:07 Total Bilirubin 0.20 mg/dL (0.1-1.2) 10/10/18 04:19 Direct Bilirubin < 0.2 mg/dL (0-0.2) 10/09/18 15:13 Indirect Bilirubin 0.0 mg/dL 10/09/18 15:13 AST 26 units/L (5-40) 10/10/18 04:19 ALT 33 units/L (7-56) 10/10/18 04:19 Alkaline Phosphatase 83 units/L (35-129) 10/10/18 04:19 Ammonia 111.0 umol/L (25-60) H 10/09/18 15:23 Total Creatine Kinase 131 units/L (55-170) 10/09/18 15:13 CK-MB (CK-2) 8.3 ng/mL (0.0-4.0) H 10/09/18 15:13 CK-MB (CK-2) Rel Index 6.3 (0-4) H 10/09/18 15:13 NT-Pro-B Natriuret Pep 163.1 pg/mL (0-450) 10/09/18 15:13 Total Protein 6.1 g/dL (6.3-8.2) L D 10/10/18 04:19 Albumin 3.5 g/dL (3.9-5) L 10/10/18 04:19 Albumin/Globulin Ratio 1.3 % 10/10/18 04:19 Lipase 24 units/L (13-60) 10/09/18 15:13 TSH 1.250 mlU/mL (0.270-4.200) 10/14/18 11:53 Free T4 1.33 ng/dL (0.76-1.46) 10/14/18 11:53 Urine Color Straw (Yellow) 10/09/18 Unknown Urine Turbidity Clear (Clear) 10/09/18 Unknown Urine pH 7.0 (5.0-7.0) 10/09/18 Unknown Ur Specific [place] 1.006 (1.003-1.030) 10/09/18 Unknown Urine Protein <15 mg/dl mg/dL (Negative) 10/09/18 Unknown Urine Glucose (UA) Neg mg/dL (Negative) 10/09/18 Unknown Urine Ketones Neg mg/dL (Negative) 10/09/18 Unknown Urine Blood Neg (Negative) 10/09/18 Unknown Urine Nitrite Neg (Negative) 10/09/18 Unknown Urine Bilirubin Neg (Negative) 10/09/18 Unknown Urine Urobilinogen < 2.0 mg/dL (<2.0) 10/09/18 Unknown Ur Leukocyte Esterase Neg (Negative) 10/09/18 Unknown Urine WBC (Auto) 0.0 /HPF (0.0-6.0) 10/09/18 Unknown Urine RBC (Auto) < 1.0 /HPF (0.0-6.0) 10/09/18 Unknown U Epithel Cells (Auto) < 1.0 /HPF (0-13.0) 10/09/18 Unknown Levetiracetam 47.6 mcg/mL 10/10/18 15:13 Active Medications - Current Medications Current Medications: Generic Name Dose Route Start Last Admin Trade Name Freq PRN Reason Stop Dose Admin Acetaminophen 650 mg 10/15/18 10:14 Tylenol PO Q6H PRN Non Cardiac Pain or Temp>100.5 Alprazolam 0.5 mg 10/12/18 22:00 10/15/18 10:22 Xanax PO 0.5 mg Q12HR SILVANA Administration Enoxaparin Sodium 40 mg 10/10/18 22:00 10/14/18 20:59 Lovenox SUB-Q 40 mg QDAY@2200 SILVANA Administration Hydrophilic Ointment 1 applic 10/09/18 14:49 Vaseline Lip Therapy TP Q2HR PRN Dry Lips Lacosamide 200 mg 10/13/18 10:00 10/15/18 10:21 Vimpat PO 200 mg Q12HR SILVANA Administration Lamotrigine 300 mg 10/09/18 22:00 10/15/18 10:22 Lamictal PO 300 mg BID SILVANA Administration Levetiracetam 1,500 mg 10/13/18 10:00 10/15/18 10:21 Keppra PO 1,500 mg BID SILVANA Administration Lorazepam 2 mg 10/11/18 12:34 10/15/18 01:32 Ativan IV 2 mg Q4H PRN Administration Seizures Metoclopramide HCl 10 mg 10/09/18 20:54 10/14/18 20:53 Reglan IV 10 mg Q6H PRN Administration Nausea And Vomiting Multi-Ingred Cream/Lotion/Oil/Oint 1 applic 10/09/18 14:49 Artificial Tears Ophth Oint OU Q4HR PRN Dry Eye(s) Ondansetron HCl 4 mg 10/09/18 20:54 10/14/18 09:02 Zofran IV 4 mg Q8H PRN Administration Nausea And Vomiting Sodium Chloride 10 ml 10/09/18 22:00 10/15/18 10:23 Sodium Chloride Flush Syringe 10 Ml IV 10 ml BID SILVANA Administration Sodium Chloride 10 ml 10/09/18 20:54 10/10/18 16:16 Sodium Chloride Flush Syringe 10 Ml IV 10 ml PRN PRN Administration LINE FLUSH Topiramate 50 mg 10/09/18 22:00 10/15/18 10:22 Topamax PO 50 mg Q12HR SILVANA Administration Trazodone HCl 50 mg 10/13/18 22:00 10/14/18 22:01 Desyrel PO 50 mg QHS SILVANA Administration Nutrition/Malnutrition Assess - Dietary Evaluation Nutrition/Malnutrition Findings: Nutrition Notes Start: 10/10/18 07:56 Freq: Status: Active Protocol: Document 10/15/18 09:57 TW (Rec: 10/15/18 10:01 TW [id number]) Co-Sign 10/15/18 09:57 LP Nutrition Notes Initial or Follow up Reassessment Other Pertinent Diagnosis Status epilepticus, s/p acute resp failure Current Diet [facility] soft Labs/Tests Reviewed Pertinent Medications Reviewed Height 5 ft 8 in Weight 106.3 kg [place] Body Weight (kg) 70.00 BMI 35.6 Weight change and time frame Current wt obtained from [facility]. Subjective/Other Information Pt nonverbal at time of visit. Per pt family member, pt had some nausea last night. Family member stated he is eating about 10% of his food and would like to try an ONS. Percent of energy/protein needs met: 10%/10% Burn Absent Trauma Absent #1 Nutrition Diagnosis Inadequate oral intake Diagnosis Progress(for reassessment Continues documentation) Is patient on ventilator? No Is Patient Ambulatory and/or Out of Bed No [facility] 2422.224 Kcal/Kg value to use for calculation 17 Approximate Energy Requirements Using 1807 kcal/Kg Calculation Used for Recommendations Kcal/kg Additional Notes Pro needs (AdjBW) (88 kg) (1.0 -1.2 kg/g) (88-106 kg/g) Fluid needs 1ml/kcal Nutrition Intervention Change Diet Order: Continue current diet order Add Supplement/Snack (indicate name/kcal Ensure Enlive BID /protein ) Provides kCal: 700 Provides Protein (gm) 40 Goal #1 PO intake to meet at least 75% of nutrient needs Goal #2 ONS tolerance Anticipated Discharge Needs: Unable to determine at this time Follow-Up By: 10/19/18 Additional Comments F/U for PO and ONS intake
[2018-10-15] MEDS: LOVENOX SUB-Q SCH (21:36)
[2018-10-15] MEDS: DESYREL PO SCH (21:37)
[2018-10-16 05:50] LABS: Red Blood Count 4.56 M/mm3 (3.65-5.03)
[2018-10-16 05:51] LABS: Hematocrit 41.5 % (35.5-45.6); Mean Corpuscular HGB Conc 34 % (32-34); Mean Corpuscular Volume 91 fl (84-94); Platelet Count 381 K/mm3 (140-440); Red Cell Distribution Width 12.8 % (13.2-15.2)
[2018-10-16 06:11] LABS: BUN/Creatinine Ratio 12; Blood Urea Nitrogen 11 mg/dL (9-20); Calcium 9.5 mg/dL (8.4-10.2); Hemolysis Index 20
[2018-10-16] MEDS: VIMPAT PO SCH (11:03)
[2018-10-16] MEDS: KEPPRA PO SCH (11:03)
[2018-10-16] MEDS: TOPAMAX PO SCH (11:03)
[2018-10-16] MEDS: LaMICtal PO SCH (11:03)
[2018-10-16] MEDS: XANAX PO SCH (11:03)
[2018-10-16] MEDS: SODIUM CHLORIDE FLUSH SYRINGE 10 ML IV SCH (11:04)
--- NOTE | 2018-10-16 12:22 | Discharge Summary ---
Providers - Providers Date of Admission: 10/09/18 15:38 Date of discharge: 10/16/18 Attending physician: FRACISCO AMOR 10/09/18 14:49 Consult to Dietitian/Nutrition [CONS] Routine Physician Instructions: Reason For Exam: Reason for Consult: Evaluate nutritional intake 10/09/18 20:47 Consult to Physician [CONS] Routine Comment: Consulting Provider: MIN RAMIRES Physician Instructions: Reason For Exam: persistent seizures 10/09/18 20:54 Consult to Dietitian/Nutrition [CONS] Routine Physician Instructions: Reason For Exam: Reason for Consult: Write/Manage Tube Feeding 10/09/18 20:57 Consult to Dietitian/Nutrition [CONS] Routine Physician Instructions: Assess nutrtn needs, initiate, modify, manage TF Reason For Exam: Reason for Consult: Write/Manage Tube Feeding Reason for Consult: Write/Manage Tube Feeding 10/10/18 09:05 Consult to Physician [CONS] Routine Comment: Consulting Provider: TANG MONDRAGON Physician Instructions: Reason For Exam: seizures/status epilepticus 10/10/18 09:39 Consult to Dietitian/Nutrition [CONS] Routine Physician Instructions: Assess nutrtn needs, initiate, modify, manage TF Reason For Exam: Reason for Consult: Write/Manage Tube Feeding Reason for Consult: Write/Manage Tube Feeding 10/12/18 07:25 Physical Therapy Evaluation and Treat [CONS] Routine Comment: Reason For Exam: ICU pt/extubated/seizure disorder [facility] Condition: Stable Hospital course: Patient is a 28 year old man with a history of man with a history of retinitis pigmentosa, legally blind, seizure disorder, ?newly diagnosed brain degenerative disease, urinary incontinence, impair mobility, bedridden who presents with a status epilepticus and acute respiratory failure requiring intubation and now extubated. Pt was noted to have pauses on telemetry and thus cardiology has been consulted. Review of telemetry shows a total of 3 pauses - one pause appears to be nonconducted PAC and the other two pauses appear to be sinus pauses, longest pause was 2.4sec. Obtain thyroid profile and cont to hold AV preethi blocking agents. F/u echo. Cont telemetry. Replete lytes PRN. -Epilepticus seizure: anti-epileptics, Mother at bedside, pt need all refills on seizure medications -N/V resolved, GI consult cancelled as patient tolerated dinner and breakfast. 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 Disposition: DC-01 TO HOME OR SELFCARE Time spent for discharge: 32 minutes Core Measure Documentation - Palliative Care Palliative Care/ Comfort Measures: Not Applicable - Core Measures Any of the following diagnoses?: none - VTE Discharge Requirements Deep Vein Thrombosis/Pulmonary Embolism Present on Admission: No Has pt received <5 days of overlap therapy or INR<2.0: No Anticoagulant overlap therapy prescribed at discharge: No Contraindication No Overlap Therapy order at DC: Not Indicated Exam - Physical Exam Narrative exam: Gen: NAD, awake and alert, cognitive impairment obvious HEENT:, upward gaze, OP Clear Neck: supple, no adenopathy, no thyromegaly, no JVD CVS/Heart: RRR, normal S1S2, pulses present bilaterally Chest/Lungs: CTA B, Symmetrical chest expansion, good air entry bilaterally GI/Abdomen: soft, NTND, good bowel sounds, no guarding or rebound /Bladder: no suprapubic tenderness, no CVA or paraspinal tenderness Extermity/Skin: no c/c/e, no obvious rash MSK: FROM x 4 but limited strength x 4 Neuro: CN 2-12 grossly intact, no new focal deficits Psych: calm, developmental delay - Constitutional Vitals: Temp Pulse Resp BP Pulse Ox 97.9 F 89 20 143/70 94 10/16/18 11:54 10/16/18 11:53 10/16/18 11:53 10/16/18 11:53 10/16/18 11:53 Plan Activity: up only with assistance, fall precautions, other Diet: other (mechanical soft or pureed diet) Follow up with: LANIE GARCIA MD [Primary Care Provider] - 3-5 Days TANG MONDRAGON MD [Staff Physician] - 7 Days Prescriptions: Melatonin 10 mg PO QHS #15 tablet traZODone [Desyrel] 50 mg PO QPM #30 tablet levETIRAcetam [Keppra] 1,500 mg PO BID #30 oral.liqd lamoTRIgine [LaMICtal] 300 mg PO BID #60 tablet Topiramate [Topamax] 50 mg PO Q12HR #60 tablet Lacosamide [Vimpat] 200 mg PO Q12HR #60 tablet ALPRAZolam [Xanax TAB] 0.5 mg PO Q12HR #60 tablet Ranitidine HCl [Zantac] 150 mg PO BID #60 tablet Ondansetron [Zofran Oral Liq] 4 mg PO Q4H PRN 14 Days ml PRN Reason: Nausea And Vomiting
[2018-10-16 17:00] VITALS: BP 140/78
== END 2018-10-16 18:00 | disposition home health service (06) | DRG 871 ==
LOC: ED 14:40 → CC1 15:38 → 4A 10-12 16:59
PROVIDERS: ADMIT Internal Medicine; ATTEND Internal Medicine
PROC: 5A1945Z Respiratory Ventilation, 24-96 Consecutive Hours (ICD-10-PCS; principal; 2018-10-09)
PROC: 0BH17EZ Insertion of Endotracheal Airway into Trachea, Via Natural or Artificial Opening (ICD-10-PCS; 2018-10-09)
PROC: 05HY33Z Insertion of Infusion Device into Upper Vein, Percutaneous Approach (ICD-10-PCS; 2018-10-10)
PROC: 0BP1XDZ Removal of Intraluminal Device from Trachea, External Approach (ICD-10-PCS; 2018-10-11)
DX: A41.9 Sepsis, unspecified organism (principal); J96.00 Acute respiratory failure, unspecified whether with hypoxia or hypercapnia; R53.2 Functional quadriplegia; J69.0 Pneumonitis due to inhalation of food and vomit; G40.901 Epilepsy, unspecified, not intractable, with status epilepticus; H54.8 Legal blindness, as defined in USA; F03.90 Unspecified dementia, unspecified severity, without behavioral disturbance, psychotic disturbance, mood disturbance, and anxiety; E44.0 Moderate protein-calorie malnutrition; E66.9 Obesity, unspecified; E87.6 Hypokalemia; I07.1 Rheumatic tricuspid insufficiency; I11.9 Hypertensive heart disease without heart failure; I49.5 Sick sinus syndrome; Z74.01 Bed confinement status; Z88.0 Allergy status to penicillin; Z91.013 Allergy to seafood; Z68.35 Body mass index [BMI] 35.0-35.9, adult; Z86.73 Personal history of transient ischemic attack (TIA), and cerebral infarction without residual deficits
CPT/HCPCS: 36415; 36600; 70450; 71045; 74018; 80048; 80053; 80076; 80177; 81001; 82140; 82550; 82553; 82803; 82805; 82962; 83690; 83735; 83880; 84100; 84132; 84439; 84443; 85007; 85025; 85027; 85610; 85730; 87040; 87070; 87086; 87116; 87205; 93005; 93010; 93306; 94002; 94003; 94760; G0378; C9254; J0330; J0692; J1170; J1650; J1953; J2060; J2185; J2250; J2405; J2765; J3010; J3370; J3475; J7030; J7040

== ENCOUNTER 2018-12-20 17:46 | Inpatient (IN) | payer MEDICAID ==
[2018-12-20] MEDS ORDERED: KEPPRA 1,000 MG/NS 0.75% 100ML 1,000 MG/100 ML BAG IV ONE ×4 (18:05→21:55)
[2018-12-20] MEDS ORDERED: NACL 0.9% 1000 ML 1,000 ML IV ONE (18:13)
[2018-12-20] MEDS ORDERED: ZOFRAN IV ONE (18:13)
[2018-12-20] MEDS ORDERED: ATIVAN ONE ×2 (18:32→23:38)
[2018-12-20 18:34] LABS: Hematocrit 50.5 % (35.5-45.6); Hemoglobin 16.8 gm/dl (11.8-15.2); Mean Corpuscular HGB Conc 33 % (32-34); Mean Corpuscular Volume 92 fl (84-94); Platelet Count 393 K/mm3 (140-440); Red Blood Count 5.48 M/mm3 (3.65-5.03); Red Cell Distribution Width 12.8 % (13.2-15.2)
--- NOTE | 2018-12-20 18:38 | Emergency Department Report ---
HPI - General Chief Complaint: Seizure Time Seen by Provider: 12/20/18 18:04 - HPI HPI: Room 17 --> 18 The patient is 28-year-old male presenting with a chief complaint of seizures the patient has a history of degenerative brain disorder, retinitis pigmentosa. The patient reportedly has been vomiting for the past 2 nights. Has been no history of diarrhea. Today the patient had a generalized tonic-clonic seizure per mother prompting her to call EMS. The mother reports a seizure lasting approximately 3 minutes. In the ED the patient had a second generalized tonic- clonic seizure lasting several seconds. The mother states the patient did not return to his mental baseline between the first and second seizure. The patient is currently postictal Location: [See above] Duration: [See above] Quality: [See above] Severity: [See above] Modifying factors: [see above] Context: [see above] Mode of transportation: [not driving] ED Past Medical Hx - Past Medical History Hx CVA: Yes (2013) Hx Seizures: Yes Hx Dementia: Yes Additional medical history: Retinitis pigmentosa/blind, 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, 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 - Surgical History Additional Surgical History: Vagal nerve stimulator - Family History Family history: no significant - Social History Smoking Status: Never Smoker Substance Use Type: None - Medications Home Medications: Home Medications Medication Instructions Recorded Confirmed Last Taken Type ALPRAZolam [Xanax TAB] 0.5 mg PO Q12HR #60 tablet 10/16/18 Unknown Rx Acetaminophen [Acetaminophen TAB] 650 mg PO Q6H PRN #30 tablet 10/16/18 Unknown Rx Lacosamide [Vimpat] 200 mg PO Q12HR #60 tablet 10/16/18 Unknown Rx Melatonin [Melatonin 10MG TAB] 10 mg PO QHS #15 tablet 10/16/18 Unknown Rx Ondansetron [Zofran Oral Liq] 4 mg PO Q4H PRN 14 Days ml 10/16/18 Unknown Rx Ranitidine HCl [Zantac] 150 mg PO BID #60 tablet 10/16/18 Unknown Rx Topiramate [Topamax] 50 mg PO Q12HR #60 tablet 10/16/18 Unknown Rx lamoTRIgine [LaMICtal] 300 mg PO BID #60 tablet 10/16/18 Unknown Rx levETIRAcetam [Keppra] 1,500 mg PO BID #30 oral.liqd 10/16/18 Unknown Rx traZODone [Desyrel] 50 mg PO QPM #30 tablet 10/16/18 Unknown Rx ED Review of Systems ROS: Stated complaint: SEIZURE Other details as noted in HPI Comment: Unobtainable due to pts medical conditions Physical Exam - Physical Exam Vital Signs: Vital Signs 12/20/18 17:58 Pulse Rate 129 H Respiratory 26 H Rate Blood Pressure 145/111 O2 Sat by Pulse 98 Oximetry Physical Exam: GENERAL: The patient is well-developed well-nourished male lying on stretcher with snoring respirations and a postictal state. [] HEENT: Normocephalic. Atraumatic. Patient has moist mucous membranes. NECK: Trachea midline CHEST/LUNGS: Clear to auscultation. There is no respiratory distress noted. HEART/CARDIOVASCULAR: Regular. There is tachycardia. There is no gallop rub or murmur. ABDOMEN: Abdomen is soft, nontender. Patient has normal bowel sounds. There is no abdominal distention. SKIN: There is no rash. There is no edema. There is no diaphoresis. NEURO: The patient is postictal MUSCULOSKELETAL: There is no evidence of acute injury. ED Course Vital Signs 12/20/18 17:58 Pulse Rate 129 H Respiratory 26 H Rate Blood Pressure 145/111 O2 Sat by Pulse 98 Oximetry - Reevaluation(s) Reevaluation #1: 12/20/18 21:09 Patient more awake at this time however mother states he is not at his mental baseline. ED Medical Decision Making - Lab Data Result diagrams: 12/20/18 18:19 12/20/18 18:21 - Radiology Data Radiology results: report reviewed (CT head), image reviewed (CT head) [facility] [address] [place] [address] Cat Scan Report Signed Patient: PAUL SCOTT MR#: [id number] : 1990 Acct:[id number] Age/Sex: 28 / M ADM Date: 12/20/18 Loc: ED Attending Dr: Ordering Physician: KEENAN CANDELARIO MD Date of Service: 12/20/18 Procedure(s): CT head/brain wo con Accession Number(s): [id number] cc: KEENAN CANDELARIO MD CT head/brain wo con INDICATION / CLINICAL INFORMATION: Multiple seizures and altered mental status. TECHNIQUE: All CT scans at this location are performed using CT dose reduction for ALARA by means of automated exposure control. COMPARISON: Not currently available. FINDINGS: There is moderately severe generalized cerebellar atrophy. There is mild generalized cerebral atrophy. No focal lesion or mass effect is seen. There is no evidence of intracranial hemorrhage or major vessel occlusion. The calvarium is intact. There is a tiny mucous retention cyst in the inferior left maxillary antrum. The paranasal sinuses and mastoid air cells are otherwise clear. IMPRESSION: 1. No acute abnormality is identified. 2. Moderately severe generalized cerebellar atrophy. Signer Name: Keanu Cooper MD Signed: 12/20/2018 7:42 PM Workstation Name: [id number] Transcribed By: RT Dictated By: Keanu Cooper MD Electronically Authenticated By: Keanu Cooper MD Signed Date/Time: 12/20/181941 DD/ 39 TD/TT: - Differential Diagnosis status epilepticus, gastritis, pancreatitis, ICH Critical care attestation.: If time is entered above; I have spent that time in minutes in the direct care of this critically ill patient, excluding procedure time. ED Disposition Clinical Impression: Status epilepticus Disposition: -09 OP ADMIT IP TO THIS HOSP Is pt being admited?: Yes Does the pt Need Aspirin: No Condition: Fair Time of Disposition: 21:10 (hospitalist paged)
[2018-12-20 18:59] LABS: Alanine Aminotransferase 32 units/L (7-56); Albumin 4.6 g/dL (3.9-5); BUN/Creatinine Ratio 10; Blood Urea Nitrogen 9 mg/dL (9-20); Calcium 9.2 mg/dL (8.4-10.2); Hemolysis Index 17
[2018-12-20] MEDS ORDERED: ATIVAN IV ONE ×2 (19:10→21:38)
--- NOTE | 2018-12-20 19:47 | Cat Scan Report ---
CT head/brain wo con INDICATION / CLINICAL INFORMATION: Multiple seizures and altered mental status. TECHNIQUE: All CT scans at this location are performed using CT dose reduction for ALARA by means of automated e xposure control. COMPARISON: Not currently available. FINDINGS: There is moderately severe generalized cerebellar atrophy. There is mild generalized cerebral atrophy . No focal lesion or mass effect is seen. There is no evidence of intracranial hemorrhage or major ve ssel occlusion. The calvarium is intact. There is a tiny mucous retention cyst in the inferior left m axillary antrum. The paranasal sinuses and mastoid air cells are otherwise clear. IMPRESSION: 1. No acute abnormality is identified. 2. Moderately severe generalized cerebellar atrophy. Signer Name: Keanu Cooper MD Signed: 12/20/2018 7:42 PM Workstation Name: [id number]
[2018-12-20 20:02] LABS: Band Neutrophils # (Manual) 0.2 K/mm3; Total Cells Counted 100
[2018-12-20 20:03] LABS: Anisocytosis 1+; Platelet Estimate Consistent w Auto
[2018-12-20] MEDS ORDERED: ZOFRAN IV PRN (21:21)
[2018-12-20] MEDS ORDERED: TYLENOL PO PRN (21:21)
[2018-12-20] MEDS ORDERED: SODIUM CHLORIDE FLUSH SYRINGE 10 ML IV PRN (21:21)
[2018-12-20] MEDS ORDERED: REGLAN IV PRN (21:43)
[2018-12-20 21:49] LABS: Bacteria,Urine 1+ /HPF (Negative); Bilirubin,Urine NEG (Negative); Blood,Urine NEG (Negative); Color,Urine Yellow (Yellow); Mucus,Urine 1+ /HPF; Urobilinogen,Urine < 2.0 mg/dL (<2.0)
--- NOTE | 2018-12-20 22:10 | History and Physical Report ---
<DAMIEN ALMAZAN - Last Filed: 12/20/18 22:25> History of Present Illness Date of examination: 12/20/18 Date of admission: 12/20/18 21:22 Chief complaint: Seizure History of present illness: 28-year-old male history of degenerative brain disorder, seizure disorder s/p vagus nerve stimulator, Retinitis pigmentosa who presents to [facility] ED with complaints of seizure. At the time of examination pt is in postictal state and unable to provide history. History is provided by pt's mother, who is present at bedside and medical records. According to pt's mother, patient has been vomiting for the past 2 nights; no diarrhea/ loose stools noted. Earlier today pt experienced a generalized tonic-clonic seizure lasting 3 minutes . His mother states that he did not return to baseline after seizure, so she called EMS, and he was transported to our facility. While in the ED patient's had a total of 3 witnessed generalized tonic-clonic seizure. Past History Past Medical History: seizures, other (degenerative brain disorder (dementia), Retinitis pigmentosa/blind, 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) Past Surgical History: Other (vagal nerve stimulator to left chest) Social history: single, lives with family (lives with mother) Family history: no significant family history Medications and Allergies Allergies Allergy/AdvReac Type Severity Reaction Status Date / Time Penicillins Allergy Angioedema Verified 01/01/18 13:03 shellfish derived Allergy Swelling Verified 01/01/18 13:03 Home Medications Medication Instructions Recorded Confirmed Last Taken Type ALPRAZolam [Xanax TAB] 0.5 mg PO Q12HR #60 tablet 10/16/18 Unknown Rx Acetaminophen [Acetaminophen TAB] 650 mg PO Q6H PRN #30 tablet 10/16/18 Unknown Rx Lacosamide [Vimpat] 200 mg PO Q12HR #60 tablet 10/16/18 Unknown Rx Melatonin [Melatonin 10MG TAB] 10 mg PO QHS #15 tablet 10/16/18 Unknown Rx Ondansetron [Zofran Oral Liq] 4 mg PO Q4H PRN 14 Days ml 10/16/18 Unknown Rx Ranitidine HCl [Zantac] 150 mg PO BID #60 tablet 10/16/18 Unknown Rx Topiramate [Topamax] 50 mg PO Q12HR #60 tablet 10/16/18 Unknown Rx lamoTRIgine [LaMICtal] 300 mg PO BID #60 tablet 10/16/18 Unknown Rx levETIRAcetam [Keppra] 1,500 mg PO BID #30 oral.liqd 10/16/18 Unknown Rx traZODone [Desyrel] 50 mg PO QPM #30 tablet 10/16/18 Unknown Rx Active Meds: Active Medications Acetaminophen (Tylenol) 650 mg PO Q4H PRN PRN Reason: Pain MILD(1-3)/Fever >100.5/ALCARAZ Levetiracetam 1,500 mg/ (Dextrose) 115 mls @ 400 mls/hr IV Q12HR SILVANA Lorazepam (Ativan) 2 mg IV Q4H PRN PRN Reason: Seizures Metoclopramide HCl (Reglan) 10 mg IV Q6H PRN PRN Reason: Nausea And Vomiting Ondansetron HCl (Zofran) 4 mg IV Q8H PRN PRN Reason: Nausea And Vomiting Sodium Chloride (Sodium Chloride Flush Syringe 10 Ml) 10 ml IV BID SILVANA Sodium Chloride (Sodium Chloride Flush Syringe 10 Ml) 10 ml IV PRN PRN PRN Reason: LINE FLUSH Review of Systems ROS unobtainable: due to mental status Exam - Physical Exam Narrative exam: Physical exam General appearance: Present: Postictal state, adult male - EENT Eyes: Present: PERRL, blind ENT: hearing intact, normal dentition - Neck Neck: Present: supple, normal ROM - Respiratory Respiratory effort: Non-labored Respiratory: clear bilat - Cardiovascular Heart rate: (bpm) Rhythm: regular Heart Sounds: Present: S1 & S2. Absent: rub, click - Extremities Extremities: no ischemia, pulses intact, abnormal () - Peripheral Assessment Peripheral Pulses: within normal limits - Abdominal General gastrointestinal: soft, non-tender, normal bowel sounds - Integumentary Integumentary: Present: warm, dry - Musculoskeletal Musculoskeletal: generalized weakness - Psychiatric Psychiatric: postictal state, unable to assess - Constitutional Vitals: Temp Pulse Resp BP Pulse Ox 86 26 H 106/55 100 12/20/18 20:15 12/20/18 20:15 12/20/18 20:15 12/20/18 20:15 Results - Labs CBC & Chem 7: 12/20/18 18:19 12/20/18 18:21 Labs: Laboratory Last Values WBC 12.0 K/mm3 (4.5-11.0) H 12/20/18 18:19 RBC 5.48 M/mm3 (3.65-5.03) H 12/20/18 18:19 Hgb 16.8 gm/dl (11.8-15.2) H 12/20/18 18:19 Hct 50.5 % (35.5-45.6) H 12/20/18 18:19 MCV 92 fl (84-94) 12/20/18 18:19 MCH 31 pg (28-32) 12/20/18 18:19 MCHC 33 % (32-34) 12/20/18 18:19 RDW 12.8 % (13.2-15.2) L 12/20/18 18:19 Plt Count 393 K/mm3 (140-440) 12/20/18 18:19 Lymph # Promotion Manager 12/20/18 18:19 Add Manual Diff Complete 12/20/18 18:19 Total Counted 100 12/20/18 18:19 Seg Neuts % (Manual) 53.0 % (40.0-70.0) 12/20/18 18:19 2.0 % 12/20/18 18:19 40.0 % (13.4-35.0) H 12/20/18 18:19 Reactive Lymphs % (Man) 0 % 12/20/18 18:19 3.0 % (0.0-7.3) 12/20/18 18:19 1.0 % (0.0-4.3) 12/20/18 18:19 1.0 % (0.0-1.8) 12/20/18 18:19 0 % 12/20/18 18:19 0 % 12/20/18 18:19 0 % 12/20/18 18:19 0 % 12/20/18 18:19 Nucleated RBC % Not Reportable 12/20/18 18:19 Seg Neutrophils # Man 6.4 K/mm3 (1.8-7.7) 12/20/18 18:19 Band Neutrophils # 0.2 K/mm3 12/20/18 18:19 4.8 K/mm3 (1.2-5.4) 12/20/18 18:19 Abs React Lymphs (Man) 0.0 K/mm3 12/20/18 18:19 0.4 K/mm3 (0.0-0.8) 12/20/18 18:19 0.1 K/mm3 (0.0-0.4) 12/20/18 18:19 0.1 K/mm3 (0.0-0.1) 12/20/18 18:19 0.0 K/mm3 12/20/18 18:19 0.0 K/mm3 12/20/18 18:19 0.0 K/mm3 12/20/18 18:19 Blast Cells # 0.0 K/mm3 12/20/18 18:19 WBC Morphology Not Reportable 12/20/18 18:19 WBC Morphology TNR 12/20/18 18:19 Hypersegmented Neuts Not Reportable 12/20/18 18:19 Hyposegmented Neuts Not Reportable 12/20/18 18:19 Hypogranular Neuts Not Reportable 12/20/18 18:19 Not Reportable 12/20/18 18:19 Not Reportable 12/20/18 18:19 Not Reportable 12/20/18 18:19 Not Reportable 12/20/18 18:19 Not Reportable 12/20/18 18:19 Not Reportable 12/20/18 18:19 Consistent w auto 12/20/18 18:19 Not Reportable 12/20/18 18:19 Plt Clumps, EDTA Not Reportable 12/20/18 18:19 Not Reportable 12/20/18 18:19 Not Reportable 12/20/18 18:19 Not Reportable 12/20/18 18:19 Plt Morphology Comment Not Reportable 12/20/18 18:19 RBC Morphology Not Reportable 12/20/18 18:19 Dimorphic RBCs Not Reportable 12/20/18 18:19 Not Reportable 12/20/18 18:19 Not Reportable 12/20/18 18:19 Not Reportable 12/20/18 18:19 1+ 12/20/18 18:19 Not Reportable 12/20/18 18:19 Not Reportable 12/20/18 18:19 Not Reportable 12/20/18 18:19 Not Reportable 12/20/18 18:19 Not Reportable 12/20/18 18:19 Not Reportable 12/20/18 18:19 Not Reportable 12/20/18 18:19 Not Reportable 12/20/18 18:19 Not Reportable 12/20/18 18:19 Not Reportable 12/20/18 18:19 Not Reportable 12/20/18 18:19 Not Reportable 12/20/18 18:19 Not Reportable 12/20/18 18:19 Not Reportable 12/20/18 18:19 Not Reportable 12/20/18 18:19 Acanthocytes (Spur) Not Reportable 12/20/18 18:19 Rouleaux Not Reportable 12/20/18 18:19 Not Reportable 12/20/18 18:19 Not Reportable 12/20/18 18:19 Not Reportable 12/20/18 18:19 Not Reportable 12/20/18 18:19 Hem Pathologist Commnt No 12/20/18 18:19 Sodium 139 mmol/L (137-145) 12/20/18 18:21 Potassium 3.5 mmol/L (3.6-5.0) L 12/20/18 18:21 Chloride 107.5 mmol/L (98-107) H 12/20/18 18:21 Carbon Dioxide 15 mmol/L (22-30) L 12/20/18 18:21 20 mmol/L 12/20/18 18:21 BUN 9 mg/dL (9-20) 12/20/18 18:21 0.9 mg/dL (0.8-1.5) 12/20/18 18:21 Estimated GFR > 60 ml/min 12/20/18 18:21 10 % 12/20/18 18:21 Glucose 134 mg/dL (75-100) H 12/20/18 18:21 Calcium 9.2 mg/dL (8.4-10.2) 12/20/18 18:21 Magnesium 1.80 mg/dL (1.7-2.3) 12/20/18 18:19 0.20 mg/dL (0.1-1.2) 12/20/18 18:21 AST 29 units/L (5-40) 12/20/18 18:21 ALT 32 units/L (7-56) 12/20/18 18:21 86 units/L (35-129) 12/20/18 18:21 8.0 g/dL (6.3-8.2) 12/20/18 18:21 4.6 g/dL (3.9-5) 12/20/18 18:21 1.4 % 12/20/18 18:21 28 units/L (13-60) 12/20/18 18:21 Yellow (Yellow) 12/20/18 21:25 Clear (Clear) 12/20/18 21:25 5.0 (5.0-7.0) 12/20/18 21:25 Ur Specific [place] 1.026 (1.003-1.030) 12/20/18 21:25 100 mg/dl mg/dL (Negative) 12/20/18 21:25 Neg mg/dL (Negative) 12/20/18 21:25 80 mg/dL (Negative) 12/20/18 21:25 Neg (Negative) 12/20/18 21:25 Neg (Negative) 12/20/18 21:25 Neg (Negative) 12/20/18 21:25 < 2.0 mg/dL (<2.0) 12/20/18 21:25 Ur Leukocyte Esterase Neg (Negative) 12/20/18 21:25 2.0 /HPF (0.0-6.0) 12/20/18 21:25 1.0 /HPF (0.0-6.0) 12/20/18 21:25 U Epithel Cells (Auto) 1.0 /HPF (0-13.0) 12/20/18 21:25 1+ /HPF (Negative) 12/20/18 21:25 1+ /HPF 12/20/18 21:25 - Imaging and Cardiology Chest x-ray: pending Imaging and Cardiology: CT Head: FINDINGS: There is moderately severe generalized cerebellar atrophy. There is mild generalized cerebral atrophy. No focal lesion or mass effect is seen. There is no evidence of intracranial hemorrhage or major vessel occlusion. The calvarium is intact. There is a tiny mucous retention cyst in the inferior left maxillary antrum. The paranasal sinuses and mastoid air cells are otherwise clear. IMPRESSION: 1. No acute abnormality is identified. 2. Moderately severe generalized cerebellar atrophy. CT Abd/ Pelvis- pending Assessment and Plan Assessment and plan: 28-year-old male history of degenerative brain disorder, seizure disorder s/p vagus nerve stimulator, Retinitis pigmentosa who presents to [facility] ED with complaints of seizure. Pt had one seizure at home and a total of 3 seizures since presenting to ED. CT head did not show any evidence of int racranial hemorrhage, major vessel occlusion, focal lesions or mass. However, it did show moderately severe generalized cerebellar atrophy with mild generalized cerebral atrophy. Will admit to IMCU. Status epilepticus Seizure disorders N/V ??Gastroenteritis History of vagus nerve stimulator Obesity Mild Leukocytosis-12.0 Mild Hypokalemia-3.5 Obesity Plan: Continue supportive care Initiate seizure precaution Neurochecks CT Abd/pelvis pending Neurology consult pending Patient has had a total of 3 witnessed seizures since presenting to the ED; received IV Keppra 1g 2 and IV Ativan 2 mg 2 NPO Hold all PO meds until pt is stable; will get swallow screen before oral intake Start IV Keppra 1.5g Continue IV Ativan 2mg prn Mild leukocytosis, afebrile, UA negative, CXR pending- hold off on empiric abx for now ADA diet and lifestyle changes once stable; may benefit from op weight mgmt program DVT PPX on Lovenox Advance Directives: No VTE prophylaxis?: Chemical Plan of care discussed with patient/family: Yes <JOSE WING - Last Filed: 12/21/18 06:20> History of Present Illness Date of admission: 12/20/18 21:22 Medications and Allergies Active Meds: Active Medications Acetaminophen (Tylenol) 650 mg PO Q4H PRN PRN Reason: Pain MILD(1-3)/Fever >100.5/ALCARAZ Enoxaparin Sodium (Lovenox) 40 mg SUB-Q QDAY@2200 SILVANA Levetiracetam 1,500 mg/ (Dextrose) 115 mls @ 400 mls/hr IV Q12HR SILVANA Lorazepam (Ativan) 2 mg IV Q4H PRN PRN Reason: Seizures Last Admin: 12/20/18 23:45 Dose: 2 mg Documented by: Metoclopramide HCl (Reglan) 10 mg IV Q6H PRN PRN Reason: Nausea And Vomiting Ondansetron HCl (Zofran) 4 mg IV Q8H PRN PRN Reason: Nausea And Vomiting Sodium Chloride (Sodium Chloride Flush Syringe 10 Ml) 10 ml IV BID [facility] Last Admin: 12/20/18 23:10 Dose: 10 ml Documented by: Sodium Chloride (Sodium Chloride Flush Syringe 10 Ml) 10 ml IV PRN PRN PRN Reason: LINE FLUSH Exam - Constitutional Vitals: Temp Pulse Resp BP Pulse Ox 81 20 103/55 96 12/20/18 23:20 12/20/18 23:20 12/20/18 23:20 12/20/18 23:20 Results - Labs CBC & Chem 7: 12/21/18 03:56 12/21/18 03:56 Labs: Laboratory Last Values WBC 12.0 K/mm3 (4.5-11.0) H 12/20/18 18:19 RBC 5.48 M/mm3 (3.65-5.03) H 12/20/18 18:19 Hgb 16.8 gm/dl (11.8-15.2) H 12/20/18 18:19 Hct 50.5 % (35.5-45.6) H 12/20/18 18:19 MCV 92 fl (84-94) 12/20/18 18:19 MCH 31 pg (28-32) 12/20/18 18:19 MCHC 33 % (32-34) 12/20/18 18:19 RDW 12.8 % (13.2-15.2) L 12/20/18 18:19 Plt Count 393 K/mm3 (140-440) 12/20/18 18:19 Lymph # Promotion Manager 12/20/18 18:19 Add Manual Diff Complete 12/20/18 18:19 Total Counted 100 12/20/18 18:19 Seg Neuts % (Manual) 53.0 % (40.0-70.0) 12/20/18 18:19 2.0 % 12/20/18 18:19 40.0 % (13.4-35.0) H 12/20/18 18:19 Reactive Lymphs % (Man) 0 % 12/20/18 18:19 3.0 % (0.0-7.3) 12/20/18 18:19 1.0 % (0.0-4.3) 12/20/18 18:19 1.0 % (0.0-1.8) 12/20/18 18:19 0 % 12/20/18 18:19 0 % 12/20/18 18:19 0 % 12/20/18 18:19 0 % 12/20/18 18:19 Nucleated RBC % Not Reportable 12/20/18 18:19 Seg Neutrophils # Man 6.4 K/mm3 (1.8-7.7) 12/20/18 18:19 Band Neutrophils # 0.2 K/mm3 12/20/18 18:19 4.8 K/mm3 (1.2-5.4) 12/20/18 18:19 Abs React Lymphs (Man) 0.0 K/mm3 12/20/18 18:19 0.4 K/mm3 (0.0-0.8) 12/20/18 18:19 0.1 K/mm3 (0.0-0.4) 12/20/18 18:19 0.1 K/mm3 (0.0-0.1) 12/20/18 18:19 0.0 K/mm3 12/20/18 18:19 0.0 K/mm3 12/20/18 18:19 0.0 K/mm3 12/20/18 18:19 Blast Cells # 0.0 K/mm3 12/20/18 18:19 WBC Morphology Not Reportable 12/20/18 18:19 WBC Morphology TNR 12/20/18 18:19 Hypersegmented Neuts Not Reportable 12/20/18 18:19 Hyposegmented Neuts Not Reportable 12/20/18 18:19 Hypogranular Neuts Not Reportable 12/20/18 18:19 Not Reportable 12/20/18 18:19 Not Reportable 12/20/18 18:19 Not Reportable 12/20/18 18:19 Not Reportable 12/20/18 18:19 Not Reportable 12/20/18 18:19 Not Reportable 12/20/18 18:19 Consistent w auto 12/20/18 18:19 Not Reportable 12/20/18 18:19 Plt Clumps, EDTA Not Reportable 12/20/18 18:19 Not Reportable 12/20/18 18:19 Not Reportable 12/20/18 18:19 Not Reportable 12/20/18 18:19 Plt Morphology Comment Not Reportable 12/20/18 18:19 RBC Morphology Not Reportable 12/20/18 18:19 Dimorphic RBCs Not Reportable 12/20/18 18:19 Not Reportable 12/20/18 18:19 Not Reportable 12/20/18 18:19 Not Reportable 12/20/18 18:19 1+ 12/20/18 18:19 Not Reportable 12/20/18 18:19 Not Reportable 12/20/18 18:19 Not Reportable 12/20/18 18:19 Not Reportable 12/20/18 18:19 Not Reportable 12/20/18 18:19 Not Reportable 12/20/18 18:19 Not Reportable 12/20/18 18:19 Not Reportable 12/20/18 18:19 Not Reportable 12/20/18 18:19 Not Reportable 12/20/18 18:19 Not Reportable 12/20/18 18:19 Not Reportable 12/20/18 18:19 Not Reportable 12/20/18 18:19 Not Reportable 12/20/18 18:19 Not Reportable 12/20/18 18:19 Acanthocytes (Spur) Not Reportable 12/20/18 18:19 Rouleaux Not Reportable 12/20/18 18:19 Not Reportable 12/20/18 18:19 Not Reportable 12/20/18 18:19 Not Reportable 12/20/18 18:19 Not Reportable 12/20/18 18:19 Hem Pathologist Commnt No 12/20/18 18:19 Sodium 139 mmol/L (137-145) 12/20/18 18:21 Potassium 3.5 mmol/L (3.6-5.0) L 12/20/18 18:21 Chloride 107.5 mmol/L (98-107) H 12/20/18 18:21 Carbon Dioxide 15 mmol/L (22-30) L 12/20/18 18:21 20 mmol/L 12/20/18 18:21 BUN 9 mg/dL (9-20) 12/20/18 18:21 0.9 mg/dL (0.8-1.5) 12/20/18 18:21 Estimated GFR > 60 ml/min 12/20/18 18:21 10 % 12/20/18 18:21 Glucose 134 mg/dL (75-100) H 12/20/18 18:21 Calcium 9.2 mg/dL (8.4-10.2) 12/20/18 18:21 Magnesium 1.80 mg/dL (1.7-2.3) 12/20/18 18:19 0.20 mg/dL (0.1-1.2) 12/20/18 18:21 AST 29 units/L (5-40) 12/20/18 18:21 ALT 32 units/L (7-56) 12/20/18 18:21 86 units/L (35-129) 12/20/18 18:21 8.0 g/dL (6.3-8.2) 12/20/18 18:21 4.6 g/dL (3.9-5) 12/20/18 18:21 1.4 % 12/20/18 18:21 28 units/L (13-60) 12/20/18 18:21 Yellow (Yellow) 12/20/18 21:25 Clear (Clear) 12/20/18 21:25 5.0 (5.0-7.0) 12/20/18 21:25 Ur Specific [place] 1.026 (1.003-1.030) 12/20/18 21:25 100 mg/dl mg/dL (Negative) 12/20/18 21:25 Neg mg/dL (Negative) 12/20/18 21:25 80 mg/dL (Negative) 12/20/18 21:25 Neg (Negative) 12/20/18 21:25 Neg (Negative) 12/20/18 21:25 Neg (Negative) 12/20/18 21:25 < 2.0 mg/dL (<2.0) 12/20/18 21:25 Ur Leukocyte Esterase Neg (Negative) 12/20/18 21:25 2.0 /HPF (0.0-6.0) 12/20/18 21:25 1.0 /HPF (0.0-6.0) 12/20/18 21:25 U Epithel Cells (Auto) 1.0 /HPF (0-13.0) 12/20/18 21:25 1+ /HPF (Negative) 12/20/18 21:25 1+ /HPF 12/20/18 21:25 Assessment and Plan Assessment and plan: 28 year old male with history of retinitis pigmentosa, legally blind, seizure disorder was brought to the emergency room for seizures. mom states he had nausea, vomiting, unable to tolerate oral intake. 3 seizures in ER, aborted with IV ativan. I saw and evaluated the patient. I agree with the findings and the plan of care as documented in the Nurse Practitioner's note, in addition, start IV fluid.
--- NOTE | 2018-12-20 22:37 | XRay Report ---
CHEST 1 VIEW INDICATION: aspiration. COMPARISON: None. FINDINGS: Support devices: Stimulator device is noted with leads projecting in the left neck. Heart: Normal. Lungs/Pleura: No acute pulmonary or pleural findings. IMPRESSION: 1. No acute findings. Signer Name: Chirag Escobedo MD Signed: 12/20/2018 10:33 PM Workstation Name: [id number]
[2018-12-20] MEDS: SODIUM CHLORIDE FLUSH SYRINGE 10 ML IV SCH (23:10)
[2018-12-20] MEDS: ATIVAN IV PRN (23:45)
--- NOTE | 2018-12-21 00:11 | Cat Scan Report ---
CT ABDOMEN AND PELVIS WITHOUT IV CONTRAST INDICATION: n/v. COMPARISON: None available. TECHNIQUE: All CT scans at this facility use dose modulation, automated exposure control, iterative reconstructi on or weight based dosing, when appropriate, to reduce radiation dose to as low as reasonably achieva ble. FINDINGS: Lung Bases: Unremarkable aside from dependent atelectatic changes in the bases. Skeletal System: No acute abnormality. ABDOMEN: Liver: Normal. Gallbladder: Normal. Bile Ducts: Normal. Pancreas: Normal. Spleen: Normal. Adrenals: Normal. Right Kidney: Normal. Left Kidney: Normal. Stomach and Bowel: Normal. Lymph Nodes: No significant adenopathy. Aorta: No significant abnormality. Additional Findings: None. PELVIS: Colon: Normal . Urinary Bladder and Distal Ureters: Normal. Appendix: Normal. Lymph Nodes: No significant adenopathy. Additional Findings: None. IMPRESSION: 1. Within the limitations of non-contrast technique, no acute process in the abdomen or pelvis. Signer Name: Chirag Escobedo MD Signed: 12/21/2018 12:06 AM Workstation Name: [id number]
[2018-12-21 04:55] LABS: Basophils # (Auto) 0.1 K/mm3 (0.0-0.1); Basophils % (Auto) 0.6 % (0.0-1.8); Eosinophils % (Auto) 0.2 % (0.0-4.3); Hematocrit 41.2 % (35.5-45.6); Hemoglobin 14.2 gm/dl (11.8-15.2); Lymphocytes # (Auto) 2.9 K/mm3 (1.2-5.4); Lymphocytes % (Auto) 23.1 % (13.4-35.0); Mean Corpuscular HGB Conc 35 % (32-34); Mean Corpuscular Volume 90 fl (84-94); Monocytes % (Auto) 7.8 % (0.0-7.3); Platelet Count 274 K/mm3 (140-440); Red Blood Count 4.57 M/mm3 (3.65-5.03); Red Cell Distribution Width 12.5 % (13.2-15.2)
[2018-12-21 05:14] LABS: BUN/Creatinine Ratio 9; Blood Urea Nitrogen 7 mg/dL (9-20); Calcium 8.7 mg/dL (8.4-10.2); Hemolysis Index 12
[2018-12-21] MEDS: NACL 0.9% 1000 ML 1,000 ML IV SCH (06:45)
--- NOTE | 2018-12-21 07:20 | Progress Note ---
Assessment and Plan Assessment and plan: Admitted Overnight Patient is a 28 yo man with a history of degenerative brain disorder, seizure disorder s/p vagus nerve stimulator and Retinitis pigmentosa who presents to [facility] ED with complaints of seizure. Pt had one seizure at home and a total of 3 seizures since presenting to ED. CT head did not show any evidence of intracranial hemorrhage, major vessel occlusion, focal lesions or mass. However, it did show moderately severe generalized cerebellar atrophy with mild generalized cerebral atrophy. Will admit to IMCU. Mother, Radha at bedside, states pt developed n/v and unable to keep his seizure medication down which lead to intractable seizures and this admission. Mother disagreed with Deric rologist, Dr. Mike at [place], who told her there was nothing else that could be done per mother. * CT abd/pelvis without contrast IMPRESSION: 1. Within the limitations of non- contrast technique, no acute process in the abdomen or pelvis. * pCXR IMPRESSION: 1. No acute findings. * CT head without contrast IMPRESSION: 1. No acute abnormality is identified. 2. Moderately severe generalized cerebellar atrophy Status epilepticus N/V, ??Gastroenteritis vs gi upset due to plethora of medications leading to inability to take the seizure meds followed by intractable seizures History of vagus nerve stimulator Obesity Mild Leukocytosis-12.0 Mild Hypokalemia-3.5 Obesity Plan: Continue supportive care Initiate seizure precaution treat with antiemetics Neurochecks CT Abd/pelvis pending Neurology consult pending Patient has had a total of 3 witnessed seizures since presenting to the ED; received IV Keppra 1g 2 and IV Ativan 2 mg 2 NPO Hold all PO meds until pt is stable; will get swallow screen before oral intake Start IV Keppra 1.5g Continue IV Ativan 2mg prn Mild leukocytosis, afebrile, UA negative, CXR pending- hold off on empiric abx for now ADA diet and lifestyle changes once stable; may benefit from op weight mgmt program DVT PPX on Lovenox CCT 32 minutes History Interval history: Patient was seen and examined. Follow-up on current diagnosis of Status Epilepticus. No overnight events reported to me. Imaging, nursing note, chart, labs and old chart reviewed. Hospitalist Physical - Physical exam Narrative exam: Gen: ill appearing HEENT: NCAT, EOMI, PERRL, OP Clear Neck: supple, no adenopathy, no thyromegaly, no JVD CVS/Heart: RRR, normal S1S2, pulses present bilaterally Chest/Lungs: CTA B, Symmetrical chest expansion, good air entry bilaterally GI/Abdomen: soft, NTND, good bowel sounds, no guarding or rebound /Bladder: no suprapubic tenderness, no CVA or paraspinal tenderness Extermity/Skin: no c/c/e, no obvious rash MSK: FROM x 4 Neuro: CN 2-12 grossly intact except vision, no new focal deficits Psych: calm - Constitutional Vitals: Temp Pulse Resp BP Pulse Ox 98.7 F 81 20 103/55 96 12/21/18 04:37 12/20/18 23:20 12/20/18 23:20 12/20/18 23:20 12/20/18 23:20 Results - Labs CBC & Chem 7: 12/21/18 03:56 12/21/18 03:56 Labs: Laboratory Last Values WBC 12.5 K/mm3 (4.5-11.0) H 12/21/18 03:56 RBC 4.57 M/mm3 (3.65-5.03) 12/21/18 03:56 Hgb 14.2 gm/dl (11.8-15.2) 12/21/18 03:56 Hct 41.2 % (35.5-45.6) D 12/21/18 03:56 MCV 90 fl (84-94) 12/21/18 03:56 MCH 31 pg (28-32) 12/21/18 03:56 MCHC 35 % (32-34) H 12/21/18 03:56 RDW 12.5 % (13.2-15.2) L 12/21/18 03:56 Plt Count 274 K/mm3 (140-440) 12/21/18 03:56 Lymph % (Auto) 23.1 % (13.4-35.0) 12/21/18 03:56 [place] % (Auto) 7.8 % (0.0-7.3) H 12/21/18 03:56 Eos % (Auto) 0.2 % (0.0-4.3) 12/21/18 03:56 Baso % (Auto) 0.6 % (0.0-1.8) 12/21/18 03:56 Lymph # 2.9 K/mm3 (1.2-5.4) 12/21/18 03:56 [place] # 1.0 K/mm3 (0.0-0.8) H 12/21/18 03:56 Eos # 0.0 K/mm3 (0.0-0.4) 12/21/18 03:56 Baso # 0.1 K/mm3 (0.0-0.1) 12/21/18 03:56 Add Manual Diff Complete 12/20/18 18:19 Total Counted 100 12/20/18 18:19 Seg Neutrophils % 68.3 % (40.0-70.0) 12/21/18 03:56 Seg Neuts % (Manual) 53.0 % (40.0-70.0) 12/20/18 18:19 2.0 % 12/20/18 18:19 40.0 % (13.4-35.0) H 12/20/18 18:19 Reactive Lymphs % (Man) 0 % 12/20/18 18:19 3.0 % (0.0-7.3) 12/20/18 18:19 1.0 % (0.0-4.3) 12/20/18 18:19 1.0 % (0.0-1.8) 12/20/18 18:19 0 % 12/20/18 18:19 0 % 12/20/18 18:19 0 % 12/20/18 18:19 0 % 12/20/18 18:19 Nucleated RBC % Not Reportable 12/20/18 18:19 Seg Neutrophils # 8.5 K/mm3 (1.8-7.7) H 12/21/18 03:56 Seg Neutrophils # Man 6.4 K/mm3 (1.8-7.7) 12/20/18 18:19 Band Neutrophils # 0.2 K/mm3 12/20/18 18:19 4.8 K/mm3 (1.2-5.4) 12/20/18 18:19 Abs React Lymphs (Man) 0.0 K/mm3 12/20/18 18:19 0.4 K/mm3 (0.0-0.8) 12/20/18 18:19 0.1 K/mm3 (0.0-0.4) 12/20/18 18:19 0.1 K/mm3 (0.0-0.1) 12/20/18 18:19 0.0 K/mm3 12/20/18 18:19 0.0 K/mm3 12/20/18 18:19 0.0 K/mm3 12/20/18 18:19 Blast Cells # 0.0 K/mm3 12/20/18 18:19 WBC Morphology Not Reportable 12/20/18 18:19 WBC Morphology TNR 12/20/18 18:19 Hypersegmented Neuts Not Reportable 12/20/18 18:19 Hyposegmented Neuts Not Reportable 12/20/18 18:19 Hypogranular Neuts Not Reportable 12/20/18 18:19 Not Reportable 12/20/18 18:19 Not Reportable 12/20/18 18:19 Not Reportable 12/20/18 18:19 Not Reportable 12/20/18 18:19 Not Reportable 12/20/18 18:19 Not Reportable 12/20/18 18:19 Consistent w auto 12/20/18 18:19 Not Reportable 12/20/18 18:19 Plt Clumps, EDTA Not Reportable 12/20/18 18:19 Not Reportable 12/20/18 18:19 Not Reportable 12/20/18 18:19 Not Reportable 12/20/18 18:19 Plt Morphology Comment Not Reportable 12/20/18 18:19 RBC Morphology Not Reportable 12/20/18 18:19 Dimorphic RBCs Not Reportable 12/20/18 18:19 Not Reportable 12/20/18 18:19 Not Reportable 12/20/18 18:19 Not Reportable 12/20/18 18:19 1+ 12/20/18 18:19 Not Reportable 12/20/18 18:19 Not Reportable 12/20/18 18:19 Not Reportable 12/20/18 18:19 Not Reportable 12/20/18 18:19 Not Reportable 12/20/18 18:19 Not Reportable 12/20/18 18:19 Not Reportable 12/20/18 18:19 Not Reportable 12/20/18 18:19 Not Reportable 12/20/18 18:19 Not Reportable 12/20/18 18:19 Not Reportable 12/20/18 18:19 Not Reportable 12/20/18 18:19 Not Reportable 12/20/18 18:19 Not Reportable 12/20/18 18:19 Not Reportable 12/20/18 18:19 Acanthocytes (Spur) Not Reportable 12/20/18 18:19 Rouleaux Not Reportable 12/20/18 18:19 Not Reportable 12/20/18 18:19 Not Reportable 12/20/18 18:19 Not Reportable 12/20/18 18:19 Not Reportable 12/20/18 18:19 Hem Pathologist Commnt No 12/20/18 18:19 Sodium 140 mmol/L (137-145) 12/21/18 03:56 Potassium 4.0 mmol/L (3.6-5.0) 12/21/18 03:56 Chloride 112.5 mmol/L (98-107) H 12/21/18 03:56 Carbon Dioxide 19 mmol/L (22-30) L 12/21/18 03:56 13 mmol/L 12/21/18 03:56 BUN 7 mg/dL (9-20) L 12/21/18 03:56 0.8 mg/dL (0.8-1.5) 12/21/18 03:56 Estimated GFR > 60 ml/min 12/21/18 03:56 9 % 12/21/18 03:56 Glucose 91 mg/dL (75-100) 12/21/18 03:56 Calcium 8.7 mg/dL (8.4-10.2) 12/21/18 03:56 Magnesium 1.80 mg/dL (1.7-2.3) 12/20/18 18:19 0.20 mg/dL (0.1-1.2) 12/20/18 18:21 AST 29 units/L (5-40) 12/20/18 18:21 ALT 32 units/L (7-56) 12/20/18 18:21 86 units/L (35-129) 12/20/18 18:21 8.0 g/dL (6.3-8.2) 12/20/18 18:21 4.6 g/dL (3.9-5) 12/20/18 18:21 1.4 % 12/20/18 18:21 28 units/L (13-60) 12/20/18 18:21 Yellow (Yellow) 12/20/18 21:25 Clear (Clear) 12/20/18 21:25 5.0 (5.0-7.0) 12/20/18 21:25 Ur Specific [place] 1.026 (1.003-1.030) 12/20/18 21:25 100 mg/dl mg/dL (Negative) 12/20/18 21:25 Neg mg/dL (Negative) 12/20/18 21:25 80 mg/dL (Negative) 12/20/18 21:25 Neg (Negative) 12/20/18 21:25 Neg (Negative) 12/20/18 21:25 Neg (Negative) 12/20/18 21:25 < 2.0 mg/dL (<2.0) 12/20/18 21:25 Ur Leukocyte Esterase Neg (Negative) 12/20/18 21:25 2.0 /HPF (0.0-6.0) 12/20/18 21:25 1.0 /HPF (0.0-6.0) 12/20/18 21:25 U Epithel Cells (Auto) 1.0 /HPF (0-13.0) 12/20/18 21:25 1+ /HPF (Negative) 12/20/18 21:25 1+ /HPF 12/20/18 21:25 Active Medications - Current Medications Current Medications: Generic Name Dose Route Start Last Admin Trade Name Freq PRN Reason Stop Dose Admin Acetaminophen 650 mg 12/20/18 21:21 Tylenol PO Q4H PRN Pain MILD(1-3)/Fever >100.5/ALCARAZ Enoxaparin Sodium 40 mg 12/21/18 22:00 Lovenox SUB-Q QDAY@2200 SILVANA Levetiracetam 1,500 mg/ 115 mls @ 400 mls/hr 12/21/18 10:00 Dextrose IV Q12HR SILVANA Sodium Chloride 1,000 mls @ 125 mls/hr 12/21/18 04:00 12/21/18 06:45 Nacl 0.9% 1000 Ml IV 125 mls/hr DIRECT SILVANA Administration Lorazepam 2 mg 12/20/18 21:38 12/20/18 23:45 Ativan IV 2 mg Q4H PRN Administration Seizures Metoclopramide HCl 10 mg 12/20/18 21:43 Reglan IV Q6H PRN Nausea And Vomiting Ondansetron HCl 4 mg 12/20/18 21:21 Zofran IV Q8H PRN Nausea And Vomiting Sodium Chloride 10 ml 12/20/18 22:00 12/20/18 23:10 Sodium Chloride Flush Syringe 10 Ml IV 10 ml BID SILVANA Administration Sodium Chloride 10 ml 12/20/18 21:21 Sodium Chloride Flush Syringe 10 Ml IV PRN PRN LINE FLUSH
--- NOTE | 2018-12-21 08:20 | Progress Note ---
Subjective Date of service: 12/21/18 Interval history: this patient I am very familar with he is followed in the [facility] and seizures have always been impossible to control aka refractory/ intractable epilepsy see the ED note on him Objective - Vital Sign Vital Signs - 12hr 12/20/18 12/20/18 12/20/18 20:30 21:57 22:00 Temperature Pulse Rate 85 72 108 H Respiratory 18 21 Rate Blood Pressure 110/57 90/69 O2 Sat by Pulse 99 100 Oximetry 12/20/18 12/20/18 12/20/18 22:15 22:40 23:00 Temperature Pulse Rate 95 H 101 H Respiratory 22 20 23 Rate Blood Pressure 126/77 106/66 115/64 O2 Sat by Pulse 100 95 95 Oximetry 12/20/18 12/21/18 23:20 04:37 Temperature 98.7 F Pulse Rate 81 Respiratory 20 Rate Blood Pressure 103/55 O2 Sat by Pulse 96 Oximetry - Laboratory Findings CBC and BMP: 12/21/18 03:56 12/21/18 03:56 Abnormal Lab Findings: Abnormal Labs 12/20/18 12/20/18 12/21/18 18:19 18:21 03:56 WBC 12.0 H 12.5 H RBC 5.48 H Hgb 16.8 H Hct 50.5 H MCHC 35 H RDW 12.8 L 12.5 L [place] % (Auto) 7.8 H [place] # 1.0 H Lymphocytes % (Manual) 40.0 H Seg Neutrophils # 8.5 H Potassium 3.5 L Chloride 107.5 H Carbon Dioxide 15 L BUN Glucose 134 H 12/21/18 03:56 WBC RBC Hgb Hct MCHC RDW [place] % (Auto) [place] # Lymphocytes % (Manual) Seg Neutrophils # Potassium Chloride 112.5 H Carbon Dioxide 19 L BUN 7 L Glucose
[2018-12-21] MEDS: KEPPRA 1,500 MG in D5W 100 ML IV SCH (21:59)
[2018-12-21] MEDS: LOVENOX SUB-Q SCH (22:03)
[2018-12-21] MEDS: SODIUM CHLORIDE FLUSH SYRINGE 10 ML IV SCH (22:04)
[2018-12-21] MEDS: ATIVAN IV PRN (22:20)
[2018-12-22] MEDS: NACL 0.9% 1000 ML 1,000 ML IV SCH (01:01)
[2018-12-22] MEDS: VIMPAT 200 MG in NACL 0.9% 100 ML IV SCH ×2 (02:22→16:46)
[2018-12-22 05:25] LABS: Hematocrit 40.4 % (35.5-45.6); Hemoglobin 13.8 gm/dl (11.8-15.2); Mean Corpuscular HGB Conc 34 % (32-34); Mean Corpuscular Volume 91 fl (84-94); Platelet Count 268 K/mm3 (140-440); Red Blood Count 4.43 M/mm3 (3.65-5.03); Red Cell Distribution Width 12.7 % (13.2-15.2)
--- NOTE | 2018-12-22 05:29 | Consultation ---
HISTORY OF PRESENT ILLNESS: A 28-year-old white male that is admitted to [facility] for evaluation of intractable epilepsy. The patient also has been having abdominal pain, nausea, vomiting. He has a long history of poorly controlled seizures. He presented to the Emergency Room with a history of worsening problems with vomiting, nausea and the patient had presented to the hospital. I reviewed his CT scan of the head and he has evidence of prior neurological problems due to brain atrophy. Reviewing his CT scan at this point, he has marked brain atrophy present throughout the frontal lobes markedly and so in the cerebellum and brainstem with a marked loss of brainstem function and structure in the alexi, which is very attenuated. There is loss of the cerebellum with a midline vermal atrophy, which is quite profound. There is also temporal lobe atrophy bilaterally as well as absence of development of the occipital lobes, which is expected because the patient has retinitis pigmentosa and has been blind, at least by my history since and the patient is well, has loss of white matter structure, marked temporal lobe atrophy present throughout which is clearly abnormal considering his age of 28. Actually, CT of the globes is quite unremarkable. Corneas have a normal appearance. The patient has no other evidence of any new acute bleed. Examination reveals him to be postictal, paucity of movement, does not speak, not currently having any seizure activity. No evidence of craniocervical trauma. IMPRESSION: Intractable ____ epilepsy, blind since . Been on multiple medications such as a VNS stimulator placed in him at [place]. The patient's prognosis is very poor at this point. [facility]# [id number] GHANSHYAM/VALENTIN
[2018-12-22 05:53] LABS: BUN/Creatinine Ratio 9; Blood Urea Nitrogen 7 mg/dL (9-20); Calcium 8.5 mg/dL (8.4-10.2); Hemolysis Index 4
--- NOTE | 2018-12-22 08:23 | Progress Note ---
Subjective Date of service: 12/22/18 Interval history: see my notes from past .... terery limited potential for seizure control given multiple factors plan to try to contact the mother as want to understand what [facility] had to say in the past Objective - Vital Sign Vital Signs - 12hr 12/21/18 12/21/18 12/22/18 21:57 22:00 00:00 Pulse Rate 79 79 Pulse Rate [ 93 H From Monitor] Respiratory 16 Rate O2 Sat by Pulse 97 Oximetry 12/22/18 12/22/18 04:00 05:00 Pulse Rate 63 Pulse Rate [ 63 From Monitor] Respiratory 22 Rate O2 Sat by Pulse 97 Oximetry - Laboratory Findings CBC and BMP: 12/22/18 05:10 12/22/18 05:10 Abnormal Lab Findings: Abnormal Labs 12/20/18 12/20/18 12/21/18 18:19 18:21 03:56 WBC 12.0 H 12.5 H RBC 5.48 H Hgb 16.8 H Hct 50.5 H MCHC 35 H RDW 12.8 L 12.5 L [place] % (Auto) 7.8 H [place] # 1.0 H Lymphocytes % (Manual) 40.0 H Seg Neutrophils # 8.5 H Potassium 3.5 L Chloride 107.5 H Carbon Dioxide 15 L BUN Glucose 134 H 12/21/18 12/22/18 12/22/18 03:56 05:10 05:10 WBC RBC Hgb Hct MCHC RDW 12.7 L [place] % (Auto) [place] # Lymphocytes % (Manual) Seg Neutrophils # Potassium Chloride 112.5 H 112.6 H Carbon Dioxide 19 L 21 L BUN 7 L 7 L Glucose
[2018-12-22] MEDS: SODIUM CHLORIDE FLUSH SYRINGE 10 ML IV SCH ×2 (10:07→22:00)
[2018-12-22] MEDS: KEPPRA 1,500 MG in D5W 100 ML IV SCH (10:07)
--- NOTE | 2018-12-22 16:51 | Progress Note ---
Assessment and Plan Assessment and plan: Patient is a 28 yo man with a history of degenerative brain disorder, seizure disorder s/p vagus nerve stimulator and Retinitis pigmentosa who presents to [facility] ED with complaints of seizure. Pt had one seizure at home and a total of 3 seizures since presenting to ED. CT head did not show any evidence of intracranial hemorrhage, major vessel occlusion, focal lesions or mass. However, it did show moderately severe generalized cerebellar atrophy with mild generalized cerebral atrophy. Will admit to IMCU. Mother, Radha at bedside, states pt developed n/v and unable to keep his seizure medication down which lead to intractable seizures and this admission. Mother disagreed with Neurologist, Dr. Mike at [place], who told her there was nothing else that could be done per mother. * CT abd/pelvis without contrast IMPRESSION: 1. Within the limitations of non- contrast technique, no acute process in the abdomen or pelvis. * pCXR IMPRESSION: 1. No acute findings. * CT head without contrast IMPRESSION: 1. No acute abnormality is identified. 2. Moderately severe generalized cerebellar atrophy Status epilepticus N/V, ??Gastroenteritis vs gi upset due to plethora of medications leading to inability to take the seizure meds followed by intractable seizures History of vagus nerve stimulator Obesity Mild Leukocytosis-12.0 Mild Hypokalemia-3.5 Obesity Bedbound Plan: Continue supportive care continue seizure precaution treat with antiemetics Neurochecks CT Abd/pelvis pending Neurology consult pending Patient has had a total of 3 witnessed seizures since presenting to the ED; received IV Keppra 1g 2 and IV Ativan 2 mg 2 NPO Hold all PO meds until pt is stable; will get swallow screen before oral intake Continue IV Keppra 1.5g , Continue IV Ativan 2mg prn Mild leukocytosis, afebrile, UA negative, CXR pending- hold off on empiric abx for now ADA diet and lifestyle changes once stable; may benefit from op weight mgmt program DVT PPX on Lovenox Discussed with mother, Records requested from [place] History Interval history: Patient Seen and examined and remains stable mild at bedside reports that she feels that the patient is some pain discussed stability of vital signs and also help in medications can decrease seizure thresholds. No other seizure activity reported to me at this time. Hospitalist Physical - Constitutional Vitals: Temp Pulse Resp BP Pulse Ox 98.2 F 77 19 122/79 98 07/09/19 12:00 12/22/18 13:00 12/22/18 12:00 12/21/18 16:40 12/22/18 12:00 Results - Labs CBC & Chem 7: 12/22/18 05:10 12/22/18 05:10 Labs: Laboratory Last Values WBC 7.9 K/mm3 (4.5-11.0) 12/22/18 05:10 RBC 4.43 M/mm3 (3.65-5.03) 12/22/18 05:10 Hgb 13.8 gm/dl (11.8-15.2) 12/22/18 05:10 Hct 40.4 % (35.5-45.6) 12/22/18 05:10 MCV 91 fl (84-94) 12/22/18 05:10 MCH 31 pg (28-32) 12/22/18 05:10 MCHC 34 % (32-34) 12/22/18 05:10 RDW 12.7 % (13.2-15.2) L 12/22/18 05:10 Plt Count 268 K/mm3 (140-440) 12/22/18 05:10 Lymph % (Auto) 23.1 % (13.4-35.0) 12/21/18 03:56 [place] % (Auto) 7.8 % (0.0-7.3) H 12/21/18 03:56 Eos % (Auto) 0.2 % (0.0-4.3) 12/21/18 03:56 Baso % (Auto) 0.6 % (0.0-1.8) 12/21/18 03:56 Lymph # 2.9 K/mm3 (1.2-5.4) 12/21/18 03:56 [place] # 1.0 K/mm3 (0.0-0.8) H 12/21/18 03:56 Eos # 0.0 K/mm3 (0.0-0.4) 12/21/18 03:56 Baso # 0.1 K/mm3 (0.0-0.1) 12/21/18 03:56 Add Manual Diff Complete 12/20/18 18:19 Total Counted 100 12/20/18 18:19 Seg Neutrophils % 68.3 % (40.0-70.0) 12/21/18 03:56 Seg Neuts % (Manual) 53.0 % (40.0-70.0) 12/20/18 18:19 2.0 % 12/20/18 18:19 40.0 % (13.4-35.0) H 12/20/18 18:19 Reactive Lymphs % (Man) 0 % 12/20/18 18:19 3.0 % (0.0-7.3) 12/20/18 18:19 1.0 % (0.0-4.3) 12/20/18 18:19 1.0 % (0.0-1.8) 12/20/18 18:19 0 % 12/20/18 18:19 0 % 12/20/18 18:19 0 % 12/20/18 18:19 0 % 12/20/18 18:19 Nucleated RBC % Not Reportable 12/20/18 18:19 Seg Neutrophils # 8.5 K/mm3 (1.8-7.7) H 12/21/18 03:56 Seg Neutrophils # Man 6.4 K/mm3 (1.8-7.7) 12/20/18 18:19 Band Neutrophils # 0.2 K/mm3 12/20/18 18:19 4.8 K/mm3 (1.2-5.4) 12/20/18 18:19 Abs React Lymphs (Man) 0.0 K/mm3 12/20/18 18:19 0.4 K/mm3 (0.0-0.8) 12/20/18 18:19 0.1 K/mm3 (0.0-0.4) 12/20/18 18:19 0.1 K/mm3 (0.0-0.1) 12/20/18 18:19 0.0 K/mm3 12/20/18 18:19 0.0 K/mm3 12/20/18 18:19 0.0 K/mm3 12/20/18 18:19 Blast Cells # 0.0 K/mm3 12/20/18 18:19 WBC Morphology Not Reportable 12/20/18 18:19 WBC Morphology TNR 12/20/18 18:19 Hypersegmented Neuts Not Reportable 12/20/18 18:19 Hyposegmented Neuts Not Reportable 12/20/18 18:19 Hypogranular Neuts Not Reportable 12/20/18 18:19 Not Reportable 12/20/18 18:19 Not Reportable 12/20/18 18:19 Not Reportable 12/20/18 18:19 Not Reportable 12/20/18 18:19 Not Reportable 12/20/18 18:19 Not Reportable 12/20/18 18:19 Consistent w auto 12/20/18 18:19 Not Reportable 12/20/18 18:19 Plt Clumps, EDTA Not Reportable 12/20/18 18:19 Not Reportable 12/20/18 18:19 Not Reportable 12/20/18 18:19 Not Reportable 12/20/18 18:19 Plt Morphology Comment Not Reportable 12/20/18 18:19 RBC Morphology Not Reportable 12/20/18 18:19 Dimorphic RBCs Not Reportable 12/20/18 18:19 Not Reportable 12/20/18 18:19 Not Reportable 12/20/18 18:19 Not Reportable 12/20/18 18:19 1+ 12/20/18 18:19 Not Reportable 12/20/18 18:19 Not Reportable 12/20/18 18:19 Not Reportable 12/20/18 18:19 Not Reportable 12/20/18 18:19 Not Reportable 12/20/18 18:19 Not Reportable 12/20/18 18:19 Not Reportable 12/20/18 18:19 Not Reportable 12/20/18 18:19 Not Reportable 12/20/18 18:19 Not Reportable 12/20/18 18:19 Not Reportable 12/20/18 18:19 Not Reportable 12/20/18 18:19 Not Reportable 12/20/18 18:19 Not Reportable 12/20/18 18:19 Not Reportable 12/20/18 18:19 Acanthocytes (Spur) Not Reportable 12/20/18 18:19 Rouleaux Not Reportable 12/20/18 18:19 Not Reportable 12/20/18 18:19 Not Reportable 12/20/18 18:19 Not Reportable 12/20/18 18:19 Not Reportable 12/20/18 18:19 Hem Pathologist Commnt No 12/20/18 18:19 Sodium 144 mmol/L (137-145) 12/22/18 05:10 Potassium 3.7 mmol/L (3.6-5.0) 12/22/18 05:10 Chloride 112.6 mmol/L (98-107) H 12/22/18 05:10 Carbon Dioxide 21 mmol/L (22-30) L 12/22/18 05:10 14 mmol/L 12/22/18 05:10 BUN 7 mg/dL (9-20) L 12/22/18 05:10 0.8 mg/dL (0.8-1.5) 12/22/18 05:10 Estimated GFR > 60 ml/min 12/22/18 05:10 9 % 12/22/18 05:10 Glucose 89 mg/dL (75-100) 12/22/18 05:10 Calcium 8.5 mg/dL (8.4-10.2) 12/22/18 05:10 Magnesium 1.80 mg/dL (1.7-2.3) 12/20/18 18:19 0.20 mg/dL (0.1-1.2) 12/20/18 18:21 AST 29 units/L (5-40) 12/20/18 18:21 ALT 32 units/L (7-56) 12/20/18 18:21 86 units/L (35-129) 12/20/18 18:21 8.0 g/dL (6.3-8.2) 12/20/18 18:21 4.6 g/dL (3.9-5) 12/20/18 18:21 1.4 % 12/20/18 18:21 28 units/L (13-60) 12/20/18 18:21 Yellow (Yellow) 12/20/18 21:25 Clear (Clear) 12/20/18 21:25 5.0 (5.0-7.0) 12/20/18 21:25 Ur Specific [place] 1.026 (1.003-1.030) 12/20/18 21:25 100 mg/dl mg/dL (Negative) 12/20/18 21:25 Neg mg/dL (Negative) 12/20/18 21:25 80 mg/dL (Negative) 12/20/18 21:25 Neg (Negative) 12/20/18 21:25 Neg (Negative) 12/20/18 21:25 Neg (Negative) 12/20/18 21:25 < 2.0 mg/dL (<2.0) 12/20/18 21:25 Ur Leukocyte Esterase Neg (Negative) 12/20/18 21:25 2.0 /HPF (0.0-6.0) 12/20/18 21:25 1.0 /HPF (0.0-6.0) 12/20/18 21:25 U Epithel Cells (Auto) 1.0 /HPF (0-13.0) 12/20/18 21:25 1+ /HPF (Negative) 12/20/18 21:25 1+ /HPF 12/20/18 21:25 Active Medications - Current Medications Current Medications: Generic Name Dose Route Start Last Admin Trade Name Freq PRN Reason Stop Dose Admin Acetaminophen 650 mg 12/20/18 21:21 Tylenol PO Q4H PRN Pain MILD(1-3)/Fever >100.5/ALCARAZ Enoxaparin Sodium 40 mg 12/21/18 22:00 12/21/18 22:03 Lovenox SUB-Q 40 mg QDAY@2200 SILVANA Administration Levetiracetam 1,500 mg/ 115 mls @ 400 mls/hr 12/21/18 10:00 12/22/18 10:07 Dextrose IV 400 mls/hr Q12HR SILVANA Administration Sodium Chloride 1,000 mls @ 125 mls/hr 12/21/18 04:00 12/22/18 01:01 Nacl 0.9% 1000 Ml IV 125 mls/hr DIRECT SILVANA Administration Lacosamide 200 mg/ Sodium 120 mls @ 100 mls/hr 12/21/18 15:00 12/22/18 16:46 Chloride IV 100 mls/hr Q12H SILVANA Administration Lorazepam 2 mg 12/20/18 21:38 12/21/18 22:20 Ativan IV 2 mg Q4H PRN Administration Seizures Metoclopramide HCl 10 mg 12/20/18 21:43 Reglan IV Q6H PRN Nausea And Vomiting Ondansetron HCl 4 mg 12/20/18 21:21 12/21/18 09:41 Zofran IV 4 mg Q8H PRN Administration Nausea And Vomiting Sodium Chloride 10 ml 12/20/18 22:00 12/22/18 10:07 Sodium Chloride Flush Syringe 10 Ml IV 10 ml BID SILVANA Administration Sodium Chloride 10 ml 12/20/18 21:21 Sodium Chloride Flush Syringe 10 Ml IV PRN PRN LINE FLUSH
[2018-12-22] MEDS: LOVENOX SUB-Q SCH (22:19)
[2018-12-23] MEDS: VIMPAT 200 MG in NACL 0.9% 100 ML IV SCH ×3 (03:24→16:05)
[2018-12-23] MEDS: SODIUM CHLORIDE FLUSH SYRINGE 10 ML IV SCH ×2 (03:44→09:48)
[2018-12-23 04:43] VITALS: BP 116/86
[2018-12-23] MEDS: KEPPRA 1,500 MG in D5W 100 ML IV SCH ×2 (06:12→09:48)
--- NOTE | 2018-12-23 11:17 | Discharge Summary ---
Providers - Providers Date of Admission: 12/20/18 21:22 Attending physician: CORINA BARNETT MD 12/20/18 21:21 Consult to Physician [CONS] Routine Comment: Consulting Provider: TANG MONDRAGON Physician Instructions: Reason For Exam: status epilepticus, hx seizure& vagus nerve stimul 12/21/18 09:42 Consult to PICC Line RN [CONS] Stat Reason For Exam: Need midline for IV meds (has small veins) Type Line:: Midline 12/21/18 12:00 Consult to PICC Line RN [CONS] Stat Reason For Exam: Poor veins and needs for IV Keppra Type Line:: PICC 12/21/18 14:38 Speech Therapy Evaluation and Treat [CONS] Routine Reason For Exam: odynophagia 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 Pt had one seizure at home and a total of 3 seizures since presenting to ED. CT head did not show any evidence of intracranial hemorrhage, major vessel occlusion, focal lesions or mass. However, it did show moderately severe generalized cerebellar atrophy with mild generalized cerebral atrophy. Will admit to IMCU. Mother, Radha at bedside, states pt developed n/v and unable to keep his seizure medication down which lead to intractable seizures and this admission. Mother disagreed with Neurologist, Dr. Mike at [facility], who told her there was nothing else that could be done per mother. Treated with Antiemitics for the Nausea GI upset due to plethora of medications leading to inability to take the seizure meds followed by intractable seizures Patient has had a total of 3 witnessed seizures since presenting to the ED; received IV Keppra 1g 2 and IV Ativan 2 mg 2 * CT abd/pelvis without contrast IMPRESSION: 1. Within the limitations of non- contrast technique, no acute process in the abdomen or pelvis. * pCXR IMPRESSION: 1. No acute findings. * CT head without contrast IMPRESSION: 1. No acute abnormality is identified. 2. Moderately severe generalized cerebellar atrophy Status epilepticus Gastroenteritis History of vagus nerve stimulator Obesity Mild Leukocytosis-12.0 Mild Hypokalemia-3.5 Obesity Bedbound- No quadriplegia Disposition: DC-01 TO HOME OR SELFCARE Time spent for discharge: 35 mins Core Measure Documentation - Palliative Care Palliative Care/ Comfort Measures: Not Applicable - Core Measures Any of the following diagnoses?: none Exam - Physical Exam Narrative exam: Gen: Need contact information, bedbound HEENT: NCAT, EOMI, PERRL, OP Clear Neck: supple, no adenopathy, no thyromegaly, no JVD CVS/Heart: RRR, normal S1S2, pulses present bilaterally Chest/Lungs: CTA B, Symmetrical chest expansion, good air entry bilaterally GI/Abdomen: soft, NTND, good bowel sounds, no guarding or rebound /Bladder: no suprapubic tenderness, no CVA or paraspinal tenderness Extermity/Skin: no c/c/e, no obvious rash MSK: FROM x 4 Neuro: CN 2-12 grossly intact except vision, no new focal deficits Psych: calm - Constitutional Vitals: Temp Pulse Resp BP Pulse Ox 98.0 F 82 21 116/86 97 12/23/18 08:00 12/23/18 05:00 12/23/18 04:00 12/23/18 04:00 12/23/18 04:00 Plan Activity: advance as tolerated, fall precautions Diet: low fat (GI soft diet) Special Instructions: record daily BP diary Additional Instructions: fOLLOW WITH [facility] AT [place] [facility] [place] Follow up with: PRIMARY CARE, [Primary Care Provider] - 3-5 Days TANG MONDRAGON MD [Staff Physician] - 7 Days Prescriptions: levETIRAcetam [Keppra] 1,500 mg PO BID #30 oral.liqd Lacosamide [Vimpat] 200 mg PO Q12HR #60 tablet Ondansetron [Zofran ORAL LIQ] 4 mg PO Q4H PRN 14 Days ml PRN Reason: Nausea And Vomiting
[2018-12-23] MEDS ORDERED: ATIVAN IV ONE (14:30)
[2018-12-23] MEDS: ATIVAN IV PRN (21:02)
== END 2018-12-23 21:25 | disposition home or self-care (01) | DRG 101 ==
LOC: ED 17:46 → 4A 21:22 → IMCU 22:35
PROVIDERS: ADMIT Internal Medicine; ATTEND Internal Medicine
DX: G40.411 Other generalized epilepsy and epileptic syndromes, intractable, with status epilepticus (principal); E87.6 Hypokalemia; F03.90 Unspecified dementia, unspecified severity, without behavioral disturbance, psychotic disturbance, mood disturbance, and anxiety; G31.9 Degenerative disease of nervous system, unspecified; E66.9 Obesity, unspecified; H54.8 Legal blindness, as defined in USA; K52.9 Noninfective gastroenteritis and colitis, unspecified; K30 Functional dyspepsia; R23.2 Flushing; Z86.73 Personal history of transient ischemic attack (TIA), and cerebral infarction without residual deficits; Z68.41 Body mass index [BMI] 40.0-44.9, adult; Z74.01 Bed confinement status
CPT/HCPCS: 36415; 70450; 71045; 74176; 80048; 80053; 81001; 83690; 83735; 85007; 85025; 85027; 95819; 96365; 96367; 96375; 96376; G0378; C9254; J1650; J1953; J2060; J2405; J7030

== ENCOUNTER 2019-01-29 21:18 | Emergency (ER) | payer MEDICAID ==
[2019-01-29] MEDS ORDERED: KEPPRA 1,000 MG/NS 0.75% 100ML 1,000 MG/100 ML BAG IV ONE (21:28)
[2019-01-29] MEDS ORDERED: ZEMURON IV ONE (21:28)
[2019-01-29] MEDS ORDERED: XYLOCAINE CARDIAC IV ONE (21:28)
[2019-01-29] MEDS ORDERED: AMIDATE IV ONE (21:28)
[2019-01-29] MEDS ORDERED: ARTIFICIAL TEARS OPHTH OINT OU PRN (21:28)
[2019-01-29] MEDS ORDERED: VASELINE LIP THERAPY TP PRN (21:28)
[2019-01-29] MEDS ORDERED: NACL 0.9% 500 ML 500 ML IV ONE (21:30)
--- NOTE | 2019-01-29 21:35 | Emergency Department Report ---
ED General Adult HPI - General Chief complaint: Cardiac Arrest/CPR Stated complaint: SEIZURE Time Seen by Provider: 01/29/19 21:27 Source: family, EMS (verbal report received from EMS.ems notes not available at time of chart dictation), RN notes reviewed, old records reviewed Mode of arrival: Stretcher Limitations: Other - History of Present Illness Initial comments: This is a 29-year-old gentleman. This patient is not known to this provider previously. His past medical history includes degenerative brain disorder, seizure disorder, status post vagus nerve stimulator, retinitis pigmentosa, reportedly blind, reportedly functional quadriplegic, obesity, history of status epilepticus. Patient is brought to the hospital by EMS who provided the history. Apparently, patient has had at least 3 seizures today. There is no reported history of tra rosalino. EMS reports that they gave intranasal Versed in the field to terminate seizure. They also reports that the patient had a normal Accu-Chek in the field. EMS states that in the field, the patient suffered a cardiac arrest, and was pulseless for approximately 2-3 minutes. EMS performed CPR, and the patient had return of spontaneous circulation. EMS unable to perform endotracheal intubation in the field, and therefore placed a supraglottic Peter airway in the field. Upon arrival to the ER, the patient has the supraglottic device in place, pupils do not react to light and Accu-Chek is within normal limits. He has a GCS of 3. The Peter airway is removed, the patient receives taf-lrixq-qtgu ventilation in conjunction with nasal cannula administration at 15 L/m. Video laryngoscopy is performed with a curved Milagros 3 blade, and a 7.5 endotracheal tube is inserted with direct visualization into the trachea through the vocal cords. Simultaneously, the patient was given 100 mg of lidocaine, 1 g of Keppra, 20 mg of etomidate, and 100 mg of rocuronium. A postintubation x-ray confirms appropriate tube placement. No additional history is available at this time. -: unknown Radiation: other Quality: other Consistency: other Improves with: other Worsens with: other - Related Data Previous Rx's Medication Instructions Recorded Last Taken Type ALPRAZolam [Xanax TAB] 0.5 mg PO Q12HR #60 tablet 10/16/18 Unknown Rx Acetaminophen [Acetaminophen TAB] 650 mg PO Q6H PRN #30 tablet 10/16/18 Unknown Rx Melatonin [Melatonin 10MG TAB] 10 mg PO QHS #15 tablet 10/16/18 12/19/18 21:00 Rx 10 mg Topiramate [Topamax] 50 mg PO Q12HR #60 tablet 10/16/18 12/19/18 21:00 Rx 50mg lamoTRIgine [LaMICtal] 300 mg PO BID #60 tablet 10/16/18 12/19/18 21:00 Rx raNITIdine HCl [Zantac] 150 mg PO BID #60 tablet 10/16/18 12/20/18 21:00 Rx 150 mg traZODone [Desyrel] 50 mg PO QPM #30 tablet 10/16/18 12/20/18 22:00 Rx 50 Lacosamide [Vimpat] 200 mg PO Q12HR #60 tablet 12/23/18 Unknown Rx Ondansetron [Zofran ORAL LIQ] 4 mg PO Q4H PRN 14 Days ml 12/23/18 Unknown Rx levETIRAcetam [Keppra] 1,500 mg PO BID #30 oral.liqd 12/23/18 Unknown Rx Allergies Allergy/AdvReac Type Severity Reaction Status Date / Time Penicillins Allergy Angioedema Verified 01/01/18 13:03 shellfish derived Allergy Swelling Verified 01/01/18 13:03 ED Review of Systems ROS: Stated complaint: SEIZURE Other details as noted in HPI Comment: Unobtainable due to pts medical conditions ED Past Medical Hx - Past Medical History Hx CVA: Yes (2013) Hx Congestive Heart Failure: No Hx Diabetes: No Hx Deep Vein Thrombosis: No Hx Seizures: Yes Hx Asthma: No Hx COPD: No Hx Dementia: Yes Additional medical history: Retinitis pigmentosa/blind, 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, 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 - Surgical History Hx Pacemaker: No Hx Internal Defibrillator: No Additional Surgical History: Vagal nerve stimulator - Social History Smoking Status: Never Smoker Substance Use Type: None - Medications Home Medications: Home Medications Medication Instructions Recorded Confirmed Last Taken Type ALPRAZolam [Xanax TAB] 0.5 mg PO Q12HR #60 tablet 10/16/18 12/21/18 Unknown Rx Acetaminophen [Acetaminophen TAB] 650 mg PO Q6H PRN #30 tablet 10/16/18 12/21/18 Unknown Rx Melatonin [Melatonin 10MG TAB] 10 mg PO QHS #15 tablet 10/16/18 12/21/18 12/19/18 21:00 Rx 10 mg Topiramate [Topamax] 50 mg PO Q12HR #60 tablet 10/16/18 12/21/18 12/19/18 21:00 Rx 50mg lamoTRIgine [LaMICtal] 300 mg PO BID #60 tablet 10/16/18 12/21/18 12/19/18 21:00 Rx raNITIdine HCl [Zantac] 150 mg PO BID #60 tablet 10/16/18 12/21/18 12/20/18 21:00 Rx 150 mg traZODone [Desyrel] 50 mg PO QPM #30 tablet 10/16/18 12/21/18 12/20/18 22:00 Rx 50 Lacosamide [Vimpat] 200 mg PO Q12HR #60 tablet 12/23/18 Unknown Rx Ondansetron [Zofran ORAL LIQ] 4 mg PO Q4H PRN 14 Days ml 12/23/18 Unknown Rx levETIRAcetam [Keppra] 1,500 mg PO BID #30 oral.liqd 12/23/18 Unknown Rx ED Physical Exam - General Limitations: Altered Mental Status General appearance: obtunded - Head Head exam: Present: atraumatic, normocephalic - Eye Eye exam: Present: other (pupils dilated, and do not react to light) - ENT ENT exam: Present: normal exam, normal external ear exam, other (secretions noted in the oropharynx) - Neck Neck exam: Present: normal inspection. Absent: tenderness, meningismus, lymphadenopathy, thyromegaly - Respiratory Respiratory exam: Present: rhonchi. Absent: rales - Cardiovascular Cardiovascular Exam: Present: tachycardia, normal heart sounds. Absent: bradycardia, systolic murmur, diastolic murmur - GI/Abdominal GI/Abdominal exam: Present: soft. Absent: distended, tenderness, guarding, rebound, rigid, pulsatile mass - Rectal Rectal exam: Present: normal inspection - exam: Present: normal inspection - Extremities Exam Extremities exam: Present: normal inspection, other (2+ pulses noted in the bilateral upper, lower extremities. Compartments soft. No long bony tenderness. The pelvis is stable.). Absent: calf tenderness - Back Exam Back exam: Present: normal inspection. Absent: tenderness, CVA tenderness (R), CVA tenderness (L), paraspinal tenderness, vertebral tenderness - Neurological Exam Neurological exam: Present: altered, other (patient has a GCS of 3) - Psychiatric Psychiatric exam: Present: other (the patient is nonverbal) - Skin Skin exam: Present: dry ED Course Vital Signs 01/29/19 01/29/19 01/29/19 21:26 21:29 21:30 Temperature 99.3 F Pulse Rate 111 H 131 H 126 H Respiratory 18 11 L Rate Blood Pressure 126/62 159/98 133/80 O2 Sat by Pulse 99 99 Oximetry 01/29/19 01/29/19 01/29/19 21:52 22:00 22:16 Temperature Pulse Rate 122 H 119 H 130 H Respiratory 17 18 20 Rate Blood Pressure 133/80 151/89 151/89 O2 Sat by Pulse 99 100 Oximetry 01/29/19 22:18 Temperature Pulse Rate 131 H Respiratory Rate Blood Pressure 159/98 O2 Sat by Pulse Oximetry - Reevaluation(s) Reevaluation #1: 01/29/19 21:41 Differential diagnosis, including but not limited to: Status epilepticus, respiratory failure, pneumonia, urinary tract infection Electrolyte derangement Assessment and plan: 29-year-old gentleman with multiple seizures without islam of normal mental status, status post cardiac arrest, with return of spontaneous circulation, requiring intubation. This hospital does not have a postarrest hypothermia protocol. Therefore, we will not initiate a postarrest hypothermia protocol. However, the patient will be ventilated on the lung protective strategy, he'll be loaded with Keppra, and sedated with propofol. Emergent laboratory studies have been requested. Emergent CT scan of the brain has been requested. Emergency neurology consultation has been requested. Anticipate transfer for higher level of care, as this hospital is not able to provide continuous EEG monitoring that would be typically indicated for patient who is intubated in status epilepticus. Reevaluation #2: 01/29/19 22:00 Discussed with consulting neurology, Dr. Castle, who agrees with transfer to facility that can provide continuous EEG monitoring. We have placed a page out to [facility]. Tachycardia and leukocytosis are reviewed and appreciated, at this point in time, did not suspect bacteremia, or acute septic insult, rather, suspect a stress demargination. Reevaluation #3: 01/29/19 22:[address] scan of the brain is negative for acute disease. Reevaluation #4: 01/29/19 22:43 DR Leonel Arellano accepts as a transfer to [facility] - Intubation Time Out Performed: Yes (emergency situation) Sedative: Etomidate Mg Given: 20 Paralytic: Rocuronium Mg Given: 100 Laryngoscope: fiberoptic video scope Size: 3 ET Tube Size: 7.5 Tube Secured Depth (cm): 24 Tube Secured Location: teeth Tube Placement Confirmation: visualized tube passing t, equal breath sounds bilat, no breath sounds over epi, confirmation by capnometr Patient Tolerated Procedure: well Additional Comments: Patient placed on nasal cannula at 15 L/m. Towel rolls are inserted underneath the shoulder rolls, to align the ear to the sternal notch. Video laryngoscopy is performed, and a 7.5 endotracheal tube was inserted with ease through the vocal cords, with one attempt, with no difficulty. ED Medical Decision Making - Lab Data Result diagrams: 01/29/19 21:30 01/29/19 21:30 Vital Signs 01/29/19 21:26 Temperature 99.3 F Pulse Rate 111 H Respiratory 18 Rate Blood Pressure 126/62 O2 Sat by Pulse 99 Oximetry Lab Results 01/29/19 01/29/19 01/29/19 Range/Units 21:30 21:30 21:30 WBC 18.8 H (4.5-11.0) K/mm3 RBC 4.68 (3.65-5.03) M/mm3 Hgb 14.3 (11.8-15.2) gm/dl Hct 42.9 (35.5-45.6) % MCV 92 (84-94) fl MCH 31 (28-32) pg MCHC 33 (32-34) % RDW 13.0 L (13.2-15.2) % Plt Count 334 (140-440) K/mm3 PT 13.7 (12.2-14.9) Sec. INR 1.08 (0.87-1.13) APTT 27.5 (24.2-36.6) Sec. Thrombin Time 17.9 (15.1-19.6) Sec. POC Glucose (70-105) Plasma/Serum Alcohol < 0.01 (0-0.07) % 01/29/19 Range/Units 21:31 WBC (4.5-11.0) K/mm3 RBC (3.65-5.03) M/mm3 Hgb (11.8-15.2) gm/dl Hct (35.5-45.6) % MCV (84-94) fl MCH (28-32) pg MCHC (32-34) % RDW (13.2-15.2) % Plt Count (140-440) K/mm3 PT (12.2-14.9) Sec. INR (0.87-1.13) APTT (24.2-36.6) Sec. Thrombin Time (15.1-19.6) Sec. POC Glucose 136 H (70-105) Plasma/Serum Alcohol (0-0.07) % - EKG Data -: EKG Interpreted by Me Rate: tachycardia - EKG Data 01/29/19 22:08 This is a tachycardic rhythm, appears to be sinus, left axis deviation, left anterior fascicular block, rate 137 bpm, right bundle branch block, T-wave inversions V3, V4, V5 and V6, EKG is abnormal, the EKG is not consistent with ST elevation myocardial infarction, appears to be unchanged from prior EKG from 10/09/2018. - Radiology Data Radiology results: report reviewed, image reviewed Print Report Referring Physician: MARIA DEL CARMEN VALDIVIA Patient Name: PAUL SCOTT Date of : 1990 Sex: Male Report Date: 2019-01-29 Report Status: Finalized Findings [facility] [address] [place] [address] XRay Report Signed Patient: PAUL SCOTT MR#: [id number] : [birth year] Acct:[id number] Age/Sex: 29 / M ADM Date: 01/29/19 Loc: ED Attending Dr: Ordering Physician: MARIA DEL CARMEN VALDIVIA MD Date of Service: 01/29/19 Procedure(s): XR chest 1V ap Accession Number(s): [id number] cc: MARIA DEL CARMEN VALDIVIA MD Fluoro Time In Minutes: CHEST 1 VIEW INDICATION: ett placement resp failure. COMPARISON: 12/20/2018. FINDINGS: Support devices: Endotracheal tube and esophagogastric tube are in satisfactory position. Heart: Stable. Lungs/Pleura: No significant effusion, no pneumothorax. There are low lung volumes with atelectatic changes in the bases. IMPRESSION: 1. Tubes in satisfactory position. No complications are seen. Signer Name: Chirag Escobedo MD Signed: 01/29/2019 9:43 PM Workstation Name: [id number] Transcribed By: SW Dictated By: Chirag Escobedo MD Electronically Authenticated By: Chirag Escobedo MD Signed Date/Time: 01/29/19 8609 Critical Care Time: Yes Critical care time in (mins) excluding proc time.: 60 Critical care attestation.: If time is entered above; I have spent that time in minutes in the direct care of this critically ill patient, excluding procedure time. ED Disposition Clinical Impression: Status epilepticus, Respiratory failure Disposition[facility] DC[facility]TX[facility] IP Is pt being admited?: No Does the pt Need Aspirin: No Condition: Critical Referrals: LANIE GARCIA MD [Primary Care Provider] - 3-5 Days
--- NOTE | 2019-01-29 21:47 | XRay Report ---
CHEST 1 VIEW INDICATION: ett placement resp failure. COMPARISON: 12/20/2018. FINDINGS: Support devices: Endotracheal tube and esophagogastric tube are in satisfactory position. Heart: Stable. Lungs/Pleura: No significant effusion, no pneumothorax. There are low lung volumes with atelectatic c hanges in the bases. IMPRESSION: 1. Tubes in satisfactory position. No complications are seen. Signer Name: Chirag Escobedo MD Signed: 01/29/2019 9:43 PM Workstation Name: [id number]
[2019-01-29 21:50] LABS: INR 1.08 (0.87-1.13)
[2019-01-29 21:51] LABS: Hematocrit 42.9 % (35.5-45.6); Hemoglobin 14.3 gm/dl (11.8-15.2); Mean Corpuscular HGB Conc 33 % (32-34); Mean Corpuscular Volume 92 fl (84-94); Partial Thromboplastin Time 27.5 Sec. (24.2-36.6); Platelet Count 334 K/mm3 (140-440); Red Blood Count 4.68 M/mm3 (3.65-5.03); Thrombin Time 17.9 Sec. (15.1-19.6)
--- NOTE | 2019-01-29 21:56 | Consultation ---
History of Present Illness Consult date: 01/29/19 Medications and Allergies Allergies Allergy/AdvReac Type Severity Reaction Status Date / Time Penicillins Allergy Angioedema Verified 01/01/18 13:03 shellfish derived Allergy Swelling Verified 01/01/18 13:03 Home Medications Medication Instructions Recorded Confirmed Last Taken Type ALPRAZolam [Xanax TAB] 0.5 mg PO Q12HR #60 tablet 10/16/18 12/21/18 Unknown Rx Acetaminophen [Acetaminophen TAB] 650 mg PO Q6H PRN #30 tablet 10/16/18 12/21/18 Unknown Rx Melatonin [Melatonin 10MG TAB] 10 mg PO QHS #15 tablet 10/16/18 12/21/18 12/19/18 21:00 Rx 10 mg Topiramate [Topamax] 50 mg PO Q12HR #60 tablet 10/16/18 12/21/18 12/19/18 21:00 Rx 50mg lamoTRIgine [LaMICtal] 300 mg PO BID #60 tablet 10/16/18 12/21/18 12/19/18 21:00 Rx raNITIdine HCl [Zantac] 150 mg PO BID #60 tablet 10/16/18 12/21/18 12/20/18 21:00 Rx 150 mg traZODone [Desyrel] 50 mg PO QPM #30 tablet 10/16/18 12/21/18 12/20/18 22:00 Rx 50 Lacosamide [Vimpat] 200 mg PO Q12HR #60 tablet 12/23/18 Unknown Rx Ondansetron [Zofran ORAL LIQ] 4 mg PO Q4H PRN 14 Days ml 12/23/18 Unknown Rx levETIRAcetam [Keppra] 1,500 mg PO BID #30 oral.liqd 12/23/18 Unknown Rx Active Meds: Active Medications Hydrophilic Ointment (Vaseline Lip Therapy) 1 applic TP Q2HR PRN PRN Reason: Dry Lips Propofol (Diprivan 10 Mg/Ml) 1,000 mg in 100 mls @ 3.327 mls/hr IV TITR SILVANA; Protocol Sodium Chloride (Nacl 0.9% 500 Ml) 500 mls @ 999 mls/hr IV ONCE ONE Stop: 01/29/19 22:00 Multi-Ingred Cream/Lotion/Oil/Oint (Artificial Tears Ophth Oint) 1 applic OU Q4HR PRN PRN Reason: Dry Eye(s) Physical Examination - Vital Signs Vital Signs: Vital Signs Temp Pulse Resp BP Pulse Ox 99.3 F 111 H 18 126/62 99 01/29/19 21:26 01/29/19 21:26 01/29/19 21:26 01/29/19 21:26 01/29/19 21:26 - Level of Consciousness 1a. Level of Consciousness: coma/unresponsive - LOC Questions 1b. LOC Questions: dysarthric/intubated - LOC Command 1c. LOC Commands: performs no tasks correctly - Best Gaze 2. Best Gaze: normal - Visual 3. Visual: bilateral hemianopia - Facial Palsy 4. Facial Palsy: bilateral complete paralysis - Motor Arm 5a. Motor Arm Left: no movement 5b. Motor Arm Right: no movement - Motor Leg 6a. Motor Leg Left: no movement 6b. Motor Leg Right: no movement - Limb Ataxia 7. Limb Ataxia: absent - Sensory 8. Sensory: coma/unresponsive - Best Language 9. Best Language: coma/unresponsive - Dysarthria 10. Dysarthria: mute/anarrthric - Extinction and Inattention 11. Extinction/Inattention: no abnormality - Scoring Total Score: 35 Stroke Severity: Severe Stroke Results - Laboratory Findings CBC and BMP: 01/29/19 21:30 Abnormal Lab Findings: Abnormal Labs 01/29/19 21:31 POC Glucose 136 H Assessment and Plan Date of Service 01/29/2019 [employer] Comments: Last time known well: _ 21:00 Door time: _5 [employer] contacted: _[phone] [employer] at bedside: _8 NIHSS assessment time: _21:52 consult end time: _22:00 Impression: 3 consecutive seizures without recovery (status epilepticus) resulting in cardiac arrest Does (not) meet Large Vessel Occlusion (LVO) screening criteria (Aphasia, Neglect, Gaze deviation/preference, Dense hemiparesis, or Visual field deficits on exam), therefore advanced imaging (CTA head and neck and CTP brain) is (not) indicated. Differential Diagnosis: 1. Cardioembolic stroke 2. Small vessel disease/ lacune 3. Thromboembolic, [id number] mechanism 4. Hypercoagulable state-related infarct 5. Transient ischemic attack 6. Thrombotic mechanism, large artery disease tPA decision and other recommendations: _ Patient is not a tPA candidate Head CT did not show any acute hemorrhage. reviewed report (if available) and images Reason: _ presentation was seizure. Patient is not a WILL candidate: _ Thrombectomy not considered since large proximal intracranial vessel occlusion is not suspected. Recommendations transfer to facility with continuous EEG capability, patient has had previous admissions with status epilepticus. head of bed flat IV fluids NS Received IV Keppra 1000mg x1 in ER. maintain on keppra 500mg BID continue home Vimpat dose consider Stroke work up with: noncontrast brain MRI, and if it shows Acute Ischemic Stroke then head and neck MRA (or CTA), 2D ECHO, lipid panel, HbA1c (Goal LDL<70, HbA1c<7) EEG (may require continuous EEG) inpatient neurology consultation Discussed with ED physician/medical staff Please contact [employer] Navigator to reach me if further questions/concerns arise. Reason for Stroke Alert and History of Present Illness: _ Patient is a(n) 29 years old male, with history of epilepsy at baseline quadriplegic, blind last known well: 21:00 developed 3 seizures, then cardiac arrest, CPR for 2 minutes, regained pulse, got intubated in the ER. Review of Systems: Constitutional: Negative except as documented in history of present illness. Eye: Negative except as documented in history of present illness. Ear/Nose/Mouth/Throat: Negative except as documented in history of present illness. Respiratory: Negative except as documented in history of present illness. Cardiovascular: Negative except as documented in history of present illness. Gastrointestinal: Negative except as documented in history of present illness. Musculoskeletal: Negative except as documented in history of present illness. Neurologic: Negative except as documented in history of present illness. ---- Examination: NIHSS Details documented in the note ___ 35 (post intubated after sedation and paralytics) Medical Decision Making: - Extensive number of diagnosis or management options are considered above. - Extensive amount of complex data reviewed. - High risk of complication and/or morbidity or mortality are associated with differential diagnostic considerations above. - There may be Uncertain outcome and increased probability of prolonged functio nal impairment or high probability of severe prolonged functional impairment associated with some of these differential diagnoses. Medical Data Reviewed: 1.Data reviewed include clinical labs, radiology, Medical Tests; 2.Tests results discussed w/performing or interpreting physician; 3.Obtaining/reviewing old medical records; 4.Obtaining case history from another source; 5.Independent review of image, tracing or specimen. When possible Patient/family were informed the Neurology Consult would happen via TeleHealth consult by way of interactive audio and video telecommunications and consented to receiving care in this manner. Case discussed with the Medical staff. Critical Care notation: I was called to see this critical patient emergently. I personally evaluated this critical patient for acute stroke evaluation and determining their eligibility for IV Alteplase and interventional therapies. I have spent approximately 12__ minutes with the patient, including time at bedside, time discussing the case with other physicians, reviewing plan of care, and time independently reviewing the records and scans.
[2019-01-29 22:00] LABS: Creatine Kinase MB 6.9 ng/mL (0.0-4.0)
[2019-01-29 22:02] LABS: Alanine Aminotransferase 194 units/L (7-56); BUN/Creatinine Ratio 25; Blood Urea Nitrogen 20 mg/dL (9-20); Calcium 8.6 mg/dL (8.4-10.2); Hemolysis Index 44
--- NOTE | 2019-01-29 22:06 | Cat Scan Report ---
CT HEAD WITHOUT CONTRAST INDICATION: Stroke symptoms. TECHNIQUE: All CT scans at this location are performed using CT dose reduction for ALARA by means of automated e xposure control. COMPARISON: 12/20/2018. FINDINGS: HEMORRHAGE: None. EXTRA-AXIAL SPACES: Normal in size and morphology for the patient's age. VENTRICULAR SYSTEM: Normal in size and morphology for the patient's age. BRAIN PARENCHYMA: No acute findings. Diffuse cerebellar atrophy is again noted. MIDLINE SHIFT OR HERNIATION: None. ORBITS: Normal as visualized. SOFT TISSUES OF HEAD: Normal. CALVARIUM: Normal. VISUALIZED PARANASAL SINUSES AND MASTOID AIR CELLS: Polyp versus mucous retention cyst is again seen in the posterior inferior left maxillary sinus. Sinuses are otherwise clear. ADDITIONAL FINDINGS: None. IMPRESSION: 1. No acute intracranial abnormality. Signer Name: Chirag Escobedo MD Signed: 01/29/2019 10:01 PM Workstation Name: [id number]
[2019-01-29] MEDS: DIPRIVAN 10 MG/ML 1,000 MG/100 ML BOTTLE IV SCH (22:15)
[2019-01-29 22:26] LABS: Total Cells Counted 100
[2019-01-29 22:27] LABS: Basophils % (Manual) 0 % (0.0-1.8); Myelocytes # (Manual) 0.2 K/mm3
[2019-01-29 22:28] LABS: Anisocytosis 1+; Poikilocytosis 1+
[2019-01-29] MEDS ORDERED: VIMPAT 200 MG in NACL 0.9% 100 ML IV SCH (23:00)
[2019-01-29] MEDS: KCL 10MEQ/100ML 10 MEQ/100 ML BAG IV SCH (23:41)
[2019-01-29 23:44] LABS: Bilirubin,Urine NEG (Negative); Blood,Urine NEG (Negative); Color,Urine Yellow (Yellow); Mucus,Urine 2+ /HPF; Urobilinogen,Urine < 2.0 mg/dL (<2.0)
[2019-01-29] MEDS ORDERED: fentaNYL DRIP Premix 2,000 MCG/100 ML BAG IV SCH (23:45)
[2019-01-30 00:19] LABS: Amphetamine Screen,Urine PRESUMPTIVE NEGATIVE; Cannabinoid Screen,Urine PRESUMPTIVE NEGATIVE; Cocaine Screen,Urine PRESUMPTIVE NEGATIVE; Methadone Screen,Urine PRESUMPTIVE NEGATIVE; Opiate Screen,Urine PRESUMPTIVE NEGATIVE
[2019-01-30 00:32] LABS: Benzodiazepines Screen,Urine PRESUMPTIVE POSITIVE
[2019-01-30] MEDS: KCL 10MEQ/100ML 10 MEQ/100 ML BAG IV SCH ×3 (00:34→02:07)
[2019-01-30] MEDS: DIPRIVAN 10 MG/ML 1,000 MG/100 ML BOTTLE IV SCH (01:14)
[2019-01-30 02:08] VITALS: BP 134/72
== END 2019-01-30 01:35 | disposition short-term general hospital (02) ==
LOC: ED 21:18
DX: G40.901 Epilepsy, unspecified, not intractable, with status epilepticus (principal); J96.90 Respiratory failure, unspecified, unspecified whether with hypoxia or hypercapnia; F03.90 Unspecified dementia, unspecified severity, without behavioral disturbance, psychotic disturbance, mood disturbance, and anxiety; Z86.73 Personal history of transient ischemic attack (TIA), and cerebral infarction without residual deficits; Z88.0 Allergy status to penicillin; Z91.018 Allergy to other foods; Z79.899 Other long term (current) drug therapy; Z98.890 Other specified postprocedural states
CPT/HCPCS: 31500; 36415; 70450; 71045; 80053; 80164; 80307; 81001; 82550; 82553; 82803; 82962; 83735; 84443; 84484; 85007; 85025; 85610; 85670; 85730; 93005; 93010; 96365; 96375; 99291; C9254; J1953; J2704; J3010; J3480; J7040; 80320; 94002; G0480

== ENCOUNTER 2019-03-25 16:52 | Inpatient (IN) | payer MEDICAID ==
[2019-03-25] MEDS ORDERED: VERSED IV ONE ×3 (17:00→18:00)
[2019-03-25] MEDS ORDERED: ADRENALIN ONE (17:00)
[2019-03-25] MEDS ORDERED: ZEMURON IV ONE ×2 (17:00→17:19)
[2019-03-25] MEDS ORDERED: ATIVAN ONE (17:09)
[2019-03-25] MEDS ORDERED: NACL 0.9% 1000 ML 1,000 ML IV ONE (17:18)
[2019-03-25] MEDS ORDERED: ASPIRIN PR ONE (17:18)
[2019-03-25] MEDS ORDERED: KEPPRA 1,000 MG/NS 0.75% 100ML 1,000 MG/100 ML BAG IV ONE (17:20)
--- NOTE | 2019-03-25 17:25 | Emergency Department Report ---
ED CPR HPI - General Stated Complaint: SEIZURE Time Seen by Provider: 03/25/19 17:00 Source: family, EMS Mode of arrival: Stretcher Limitations: Altered Mental Status - History of Present Illness Initial Comments: Patient is a 29-year-old male with a past medical history of seizures and cardiac arrest that presents to the emergency room for prolonged seizure. Mother found the patient seizing for a long time and called EMS. Report received from EMS. During initial evaluation the patient went to another seizure and then went into a cardiac arrest. MD Complaint: seizure, other Place: home - Related Data Previous Rx's Medication Instructions Recorded Last Taken Type Acetaminophen [Acetaminophen TAB] 650 mg PO Q6H PRN #30 tablet 10/16/18 Unknown Rx Melatonin [Melatonin 10MG TAB] 10 mg PO QHS #15 tablet 10/16/18 12/19/18 21:00 Rx 10 mg Topiramate [Topamax] 50 mg PO Q12HR #60 tablet 10/16/18 12/19/18 21:00 Rx 50 mg lamoTRIgine [LaMICtal] 300 mg PO BID #60 tablet 10/16/18 12/19/18 21:00 Rx raNITIdine HCl [Zantac] 150 mg PO BID #60 tablet 10/16/18 12/20/18 21:00 Rx 150 mg traZODone [Desyrel] 50 mg PO QPM #30 tablet 10/16/18 12/20/18 22:00 Rx 50 Lacosamide [Vimpat] 200 mg PO Q12HR #60 tablet 12/23/18 Unknown Rx Ondansetron [Zofran ORAL LIQ] 4 mg PO Q4H PRN 14 Days ml 12/23/18 Unknown Rx levETIRAcetam [Keppra] 1,500 mg PO BID #30 oral.liqd 12/23/18 Unknown Rx Allergies Allergy/AdvReac Type Severity Reaction Status Date / Time Penicillins Allergy Angioedema Verified 01/01/18 13:03 shellfish derived Allergy Swelling Verified 01/01/18 13:03 ED Review of Systems ROS: Stated complaint: SEIZURE Other details as noted in HPI Comment: Unobtainable due to pts medical conditions ED Past Medical Hx - Past Medical History Hx CVA: Yes (2013) Hx Congestive Heart Failure: No Hx Diabetes: No Hx Deep Vein Thrombosis: No Hx Seizures: Yes Hx Asthma: No Hx COPD: No Hx Dementia: Yes Additional medical history: Retinitis pigmentosa/blind, 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, 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 - Surgical History Hx Pacemaker: No Hx Internal Defibrillator: No Additional Surgical History: Vagal nerve stimulator - Social History Smoking Status: Never Smoker Substance Use Type: None - Medications Home Medications: Home Medications Medication Instructions Recorded Confirmed Last Taken Type Acetaminophen [Acetaminophen TAB] 650 mg PO Q6H PRN #30 tablet 10/16/18 03/25/19 Unknown Rx Melatonin [Melatonin 10MG TAB] 10 mg PO QHS #15 tablet 10/16/18 03/25/19 12/19/18 21:00 Rx 10 mg Topiramate [Topamax] 50 mg PO Q12HR #60 tablet 10/16/18 03/25/19 12/19/18 21:00 Rx 50 mg lamoTRIgine [LaMICtal] 300 mg PO BID #60 tablet 10/16/18 03/25/19 12/19/18 21:00 Rx raNITIdine HCl [Zantac] 150 mg PO BID #60 tablet 10/16/18 03/25/19 12/20/18 21:00 Rx 150 mg traZODone [Desyrel] 50 mg PO QPM #30 tablet 10/16/18 03/25/19 12/20/18 22:00 Rx 50 Lacosamide [Vimpat] 200 mg PO Q12HR #60 tablet 12/23/18 03/25/19 Unknown Rx Ondansetron [Zofran ORAL LIQ] 4 mg PO Q4H PRN 14 Days ml 12/23/18 03/25/19 Unknown Rx levETIRAcetam [Keppra] 1,500 mg PO BID #30 oral.liqd 12/23/18 03/25/19 Unknown Rx ED Physical Exam - General Limitations: Altered Mental Status General appearance: other (having a sz. ) - Head Head exam: Present: atraumatic, normocephalic - Eye Eye exam: Present: normal appearance, PERRL Pupils: Present: normal accommodation - ENT ENT exam: Present: mucous membranes dry - Neck Neck exam: Present: normal inspection - Respiratory Respiratory exam: Present: normal lung sounds bilaterally. Absent: respiratory distress, wheezes, rales - Cardiovascular Cardiovascular Exam: Present: regular rate, normal rhythm, tachycardia. Absent: systolic murmur, diastolic murmur, rubs, gallop - GI/Abdominal GI/Abdominal exam: Present: soft, normal bowel sounds - Rectal Rectal exam: Present: deferred - Extremities Exam Extremities exam: Present: normal inspection - Back Exam Back exam: Present: normal inspection - Neurological Exam Neurological exam: Present: alert, oriented X3 - Psychiatric Psychiatric exam: Present: normal affect, normal mood - Skin Skin exam: Present: warm, dry, intact, normal color. Absent: rash ED Course Vital Signs 03/25/19 03/25/19 03/25/19 17:40 18:13 18:39 Temperature 99.2 F Pulse Rate 134 H 116 H 107 H Respiratory Rate Blood Pressure 141/78 157/84 149/72 Blood Pressure [Left] O2 Sat by Pulse 99 100 100 Oximetry 03/25/19 03/25/19 03/25/19 19:08 20:09 21:00 Temperature 98.2 F Pulse Rate 98 H 87 91 H Respiratory 22 20 22 Rate Blood Pressure 132/73 133/82 Blood Pressure 134/81 [Left] O2 Sat by Pulse 100 100 100 Oximetry 03/25/19 03/25/19 21:03 22:00 Temperature Pulse Rate 89 82 Respiratory 22 Rate Blood Pressure 133/82 131/74 Blood Pressure [Left] O2 Sat by Pulse 100 100 Oximetry - Reevaluation(s) Reevaluation #1: after initial evaluation the patient began to seize and then stopped breathing and heart stopped. Patient went into cardiac arrest. CPR started. Patient bagged using a BVM and code initiated. See code note. Patient was intubated after ROSC with rsi, see procedure note. . Patient had a return of spontaneous circulation after one round of epi and CPR. 03/25/19 17:00 Reevaluation #2: central line placed. See procedure note. 03/25/19 17:52 Reevaluation #3: family Meeting done. Patient is resting comfortably on ventilator. CT of head is pending. 03/25/19 18:59 Reevaluation #4: Discussed all results with parents. Parents agree with plan of care. Patient will be admitted to the hospital service. 03/25/19 20:30 - Consultations Consultation #1: Hospitalist consult for admission. Hospitalist to admit patient. Bridge orders placed. 03/25/19 20:52 - Central Line Placement Right Femoral Consent Obtained: emergent situation Time Out Performed: Yes Patient Placed on Monitor/Pulse Ox: Yes MD Prep: mask, gown, gloves Central Line Prep: Chlorhexidine scrub, sterile drapes applied Local Anesthesia Used: Lidocaine 1% Ultrasound Used for Placement: Yes Central Line Lumen Inserted: triple Bloods Obtained for Lab: Yes Central Line Position: good blood return, all ports aspirated, flus, sutured in place with 2-0 Dressing Applied: Tegaderm Patient Tolerated Procedure: well, no complications Complications: none - Intubation Time Out Performed: Yes Sedative: Versed Paralytic: Rocuronium Laryngoscope: fiberoptic video scope Size: 3 Assist Device Used: fiberoptic device ET Tube Size: 7.5 Tube Secured Depth (cm): 22 Tube Secured Location: teeth Tube Placement Confirmation: visualized tube passing t, equal breath sounds bilat, no breath sounds over epi, confirmation by capnometr Patient Tolerated Procedure: well, no complications Intubation Complications: none ED Medical Decision Making - Lab Data Result diagrams: 03/25/19 17:56 03/25/19 17:56 - EKG Data -: EKG Interpreted by Me EKG shows normal: sinus rhythm, QRS complexes, ST-T waves Rate: tachycardia - EKG Data Interpretation: LVH, other (right bundle-branch block. One QRS. LVH with repoll.) - Radiology Data Radiology results: report reviewed, image reviewed interpreted by me: ET tube in good placement. CT head/brain wo con INDICATION / CLINICAL INFORMATION: 29 years Male; sz. TECHNIQUE: Routine CT head without contrast. All CT scans at this location are performed using CT dose reduction for ALARA by means of automated exposure control. COMPARISON: Findings: The study is compared to the previous CT of 01/29/2019. The motion degrades the image quality. However, there appears to be milder cerebral white matter disease most consistent with microvascular angiopathy at. There is no clear CT evidence of acute intracranial hemorrhage or significant mass effect. There is continued advanced and cerebellar atrophy at. There is milder degree of cerebral atrophy. The ventricular system appears unchanged from the previous CT. ORBITS: No significant abnormality of visualized orbits. SINUSES / MASTOIDS: There is mild mucosal thickening within the left sphenoid sinus at. CRANIOCERVICAL JUNCTION: No significant abnormality. ADDITIONAL FINDINGS: None. IMPRESSION: 1. There is continued advanced and cerebellar atrophy. 2. There is no CT ends of acute intracranial hemorrhage. - Medical Decision Making Patient is a 29-year-old male with known history of seizure presents to the emergency room for postictal confusion and seizure. Patient had a seizure immediately upon arrival into the ER and then went immediately into a cardiac arrest. Code Brand in accordance with ACLS guidelines. Patient had spontaneous return of circulation after one round of CPR and epinephrine. Patient was intubated after he was resuscitated. Patient was intubated using RSI and rocuronium and Versed. Patient then had a central line placed. Patient had lab s drawn. Patient's labs showed a respiratory acidosis along with an elevated the VBPC and a lactic acidosis. Patient admitted into the ICU into the hospitalist service. Patient given Levaquin and fluids in the ER. Patient placed on Ativan and fentanyl for drips. - Differential Diagnosis sz. cardiac arrest. rsp arrest. Critical Care Time: Yes Critical care time in (mins) excluding proc time.: 80 Critical care attestation.: If time is entered above; I have spent that time in minutes in the direct care of this critically ill patient, excluding procedure time. Critical Care Time: 80 minutes ED Disposition Clinical Impression: Seizure, Cardiac arrest, Status epilepticus, Lactic acid acidosis, Respiratory acidosis, Elevated troponin, Hypokalemia, Seizure disorder Respiratory failure Qualifiers: Chronicity: acute Respiratory failure complication: unspecified whether with hypoxia or hypercapnia Qualified Code(s): J96.00 - Acute respiratory failure, unspecified whether with hypoxia or hypercapnia Disposition: 09 OP ADMIT IP TO THIS HOSP Is pt being admited?: Yes Does the pt Need Aspirin: No Condition: Critical Time of Disposition: 20:54
[2019-03-25] MEDS ORDERED: LEVAQUIN 500MG/100ML 500 MG/100 ML BAG IV ONE (17:54)
[2019-03-25] MEDS: ATIVAN 100 MG in NACL 0.9% 50 ML, VIAFLEX EMPTY CONTAINER 0 ML IV SCH (18:08)
[2019-03-25 18:16] LABS: Basophils # (Auto) 0.1 K/mm3 (0.0-0.1); Basophils % (Auto) 0.7 % (0.0-1.8); Eosinophils % (Auto) 0.3 % (0.0-4.3); Hematocrit 42.9 % (35.5-45.6); Hemoglobin 14.3 gm/dl (11.8-15.2); Lymphocytes # (Auto) 2.2 K/mm3 (1.2-5.4); Lymphocytes % (Auto) 13.3 % (13.4-35.0); Mean Corpuscular HGB Conc 33 % (32-34); Mean Corpuscular Volume 92 fl (84-94); Monocytes # (Auto) 0.8 K/mm3 (0.0-0.8); Monocytes % (Auto) 4.9 % (0.0-7.3); Platelet Count 398 K/mm3 (140-440); Red Blood Count 4.65 M/mm3 (3.65-5.03); Red Cell Distribution Width 12.6 % (13.2-15.2)
--- NOTE | 2019-03-25 18:19 | XRay Report ---
CHEST 1 VIEW 03/25/2019 5:58 PM INDICATION / CLINICAL INFORMATION: Cardiac arrest. COMPARISON: 01/29/2019. FINDINGS: SUPPORT DEVICES: ET tube tip projects at the level of the clavicular heads in good position. NG tube tip projects over the body the stomach. HEART / MEDIASTINUM: No significant abnormality. LUNGS / PLEURA: Lungs are underexpanded with bibasilar subsegmental atelectasis. No pneumothorax. ADDITIONAL FINDINGS: No significant additional findings. IMPRESSION: 1. ET tube and NG tube project in appropriate position. Signer Name: Jarrell Aguero MD Signed: 03/25/2019 6:14 PM Workstation Name: [id number]
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
[2019-03-25 18:41] LABS: Alanine Aminotransferase 55 units/L (7-56); Albumin 4.2 g/dL (3.9-5); BUN/Creatinine Ratio 14; Blood Urea Nitrogen 13 mg/dL (9-20); Calcium 8.3 mg/dL (8.4-10.2); Hemolysis Index 9
[2019-03-25] MEDS: fentaNYL DRIP Premix 2,000 MCG/100 ML BAG IV SCH (18:45)
[2019-03-25 19:30] LABS: Amphetamine Screen,Urine PRESUMPTIVE NEGATIVE; Cannabinoid Screen,Urine PRESUMPTIVE NEGATIVE; Cocaine Screen,Urine PRESUMPTIVE NEGATIVE; Methadone Screen,Urine PRESUMPTIVE NEGATIVE; Opiate Screen,Urine PRESUMPTIVE NEGATIVE
[2019-03-25 19:35] LABS: Amorphous Crystals,Urine Few; Bilirubin,Urine NEG (Negative); Blood,Urine NEG (Negative); Color,Urine Yellow (Yellow); Mucus,Urine FEW /HPF; Urobilinogen,Urine < 2.0 mg/dL (<2.0)
[2019-03-25 19:56] LABS: Benzodiazepines Screen,Urine PRESUMPTIVE POSITIVE
[2019-03-25 20:04] LABS: Chol/HDL Ratio 4.34 %; HDL Cholesterol 44 mg/dL (40-59); LDL Cholesterol,Direct 137 mg/dL (50-130)
--- NOTE | 2019-03-25 20:24 | Cat Scan Report ---
CT head/brain wo con INDICATION / CLINICAL INFORMATION: 29 years Male; sz. TECHNIQUE: Routine CT head without contrast. All CT scans at this location are performed using CT dos e reduction for ALARA by means of automated exposure control. COMPARISON: Findings: The study is compared to the previous CT of 01/29/2019. The motion degrades the image qualit y. However, there appears to be milder cerebral white matter disease most consistent with microvascul ar angiopathy at. There is no clear CT evidence of acute intracranial hemorrhage or significant mass effect. There is continued advanced and cerebellar atrophy at. There is milder degree of cerebral atrophy. Th e ventricular system appears unchanged from the previous CT. ORBITS: No significant abnormality of visualized orbits. SINUSES / MASTOIDS: There is mild mucosal thickening within the left sphenoid sinus at. CRANIOCERVICAL JUNCTION: No significant abnormality. ADDITIONAL FINDINGS: None. IMPRESSION: 1. There is continued advanced and cerebellar atrophy. 2. There is no CT ends of acute intracranial hemorrhage. Signer Name: James Christy MD Signed: 03/25/2019 8:19 PM Workstation Name: [id number]
[2019-03-25] MEDS ORDERED: TYLENOL PO PRN (21:35)
[2019-03-25] MEDS ORDERED: SODIUM CHLORIDE FLUSH SYRINGE 10 ML IV PRN (21:35)
[2019-03-25] MEDS ORDERED: REGLAN IV PRN (21:35)
[2019-03-25] MEDS ORDERED: ZOFRAN IV PRN (21:35)
[2019-03-25] MEDS ORDERED: PROVENTIL IH PRN (21:48)
[2019-03-25] MEDS: SODIUM CHLORIDE FLUSH SYRINGE 10 ML IV SCH (22:00)
[2019-03-25] MEDS ORDERED: VANCOMYCIN PHARMACY TO DOSE IV SCH (22:00)
[2019-03-25] MEDS ORDERED: CEFEPIME/NS 2 GM/100 ML 2 GM/100 ML BAG IV ONE (22:17)
[2019-03-25] MEDS: SOLU-Medrol IV SCH (22:18)
[2019-03-25] MEDS ORDERED: SOLU-Medrol ONE (22:18)
[2019-03-25] MEDS: CEFEPIME/NS 2 GM/100 ML 2 GM/100 ML BAG IV SCH (22:20)
[2019-03-25] MEDS ORDERED: VANCOMYCIN 2,000 MG in NACL 0.9% 500 ML 500 ML IV ONE (22:30)
[2019-03-25] MEDS: NACL 0.9% 1000 ML 1,000 ML IV SCH (23:25)
[2019-03-25] MEDS ORDERED: POTASSIUM CHLORIDE FEEDTUBE ONE (23:45)
[2019-03-26 05:11] LABS: Basophils # (Auto) 0.1 K/mm3 (0.0-0.1); Basophils % (Auto) 0.5 % (0.0-1.8); Hematocrit 41.2 % (35.5-45.6); Hemoglobin 13.8 gm/dl (11.8-15.2); Mean Corpuscular HGB Conc 34 % (32-34); Mean Corpuscular Volume 92 fl (84-94); Monocytes # (Auto) 0.4 K/mm3 (0.0-0.8); Monocytes % (Auto) 3.1 % (0.0-7.3); Platelet Count 313 K/mm3 (140-440); Red Blood Count 4.49 M/mm3 (3.65-5.03); Red Cell Distribution Width 12.5 % (13.2-15.2)
[2019-03-26] MEDS: SOLU-Medrol IV SCH ×3 (05:18→22:28)
[2019-03-26] MEDS: CEFEPIME/NS 2 GM/100 ML 2 GM/100 ML BAG IV SCH ×3 (05:18→22:37)
[2019-03-26 05:33] LABS: Alanine Aminotransferase 46 units/L (7-56); Albumin 3.9 g/dL (3.9-5); BUN/Creatinine Ratio 14; Blood Urea Nitrogen 10 mg/dL (9-20); Calcium 8.7 mg/dL (8.4-10.2); Hemolysis Index 46
[2019-03-26] MEDS: KEPPRA 1,000 MG in D5W 100 ML IV SCH ×2 (05:57→17:32)
[2019-03-26 05:59] LABS: ABG Base Excess -6.8 mmol/L (-2.0-3.0); ABG HCO3 16.8 mmol/L (20.0-26.0); ABG Methemoglobin 0.5 % (0.0-1.5); ABG Oxygen Saturation 98.6 % (95.0-99.0); ABG PCO2 28.7 mm Hg; ABG PH 7.386 pH Units (7.350-7.450); ABG PO2 134.8 mm Hg (80.0-90.0)
[2019-03-26] MEDS: DUONEB *Not for PRN Use IH SCH ×4 (07:06→19:45)
--- NOTE | 2019-03-26 07:18 | Event Note ---
Date: 03/25/19 S/p Cardiac arrest Seizure disorder Resp failure
[2019-03-26] MEDS: fentaNYL DRIP Premix 2,000 MCG/100 ML BAG IV SCH (09:00)
[2019-03-26] MEDS: PEPCID IV SCH ×2 (09:11→22:28)
[2019-03-26] MEDS: SODIUM CHLORIDE FLUSH SYRINGE 10 ML IV SCH ×2 (09:11→22:28)
[2019-03-26] MEDS: ATIVAN 100 MG in NACL 0.9% 50 ML, VIAFLEX EMPTY CONTAINER 0 ML IV SCH (09:53)
--- NOTE | 2019-03-26 10:32 | Progress Note ---
Assessment and Plan Assessment and plan: 29-year-old male patient with significant past medical history of seizure disorder presented to the emergency room with postictal confusion and seizure, The patient had cardiac arrest status post CPR per ACLS protocol Patient had spontaneous return of circulation intubated and was admitted to ICU. --Status epilepticus; seizure precautions, antiepileptic medications neurology following,supportive care --Cardiac arrest; status post CPR Continue supportive care, cardiology evaluated --Possible hypoxic encephalopathy; active.supportive care --Acute respiratory failure requiring intubation; Continue mechanical ventilation, nebs as needed .pulmonary critical Wean as tolerated and extubate --Sepsis, possible aspiration pneumonia; Patient has leukocytosis and lactic acidosis bilateral atelectasis Continue empiric antibiotics follow cultures, pulmonary following ID evaluation if needed --Vagus nerve stimulator: in place --Substance abuse: Drug screen positive for Phencyclidine. --DVT prophylaxis;Lovenox --Full Code Very Poor Prognosis Monitor closely and adjust the management as needed Follow-up consults and recommendations Plan of care is reviewed with the patient and his nurse Family not available Critical care time 35 minutes History Interval history: This will intubated on ventilatory support No new episodes of seizures since admission Vital signs noted, not in distress Bilaterally air entry. goodl no rales rhonchi 8 Hospitalist Physical - Constitutional Vitals: Temp Pulse Resp BP Pulse Ox 99.5 F 80 24 131/78 99 03/26/19 03:52 03/26/19 09:00 03/26/19 09:00 03/26/19 09:00 03/26/19 09:00 General appearance: Present: no acute distress, well-nourished, obese, other (intubated on ventilatory support) - EENT Eyes: Present: PERRL, EOM intact - Neck Neck: Present: supple, normal ROM - Respiratory Respiratory effort: normal Respiratory: bilateral: diminished, rhonchi, negative: rales, wheezing - Cardiovascular Rhythm: regular Heart Sounds: Present: S1 & S2 - Extremities Extremities: no ischemia, No edema - Abdominal General gastrointestinal: soft, non-tender, non-distended, normal bowel sounds - Integumentary Integumentary: Present: clear, warm - Psychiatric Psychiatric: other (intubated on vent) - Neurologic Neurologic: other (intubated on vent) Results - Labs CBC & Chem 7: 03/27/19 05:00 03/27/19 05:00 Labs: Laboratory Last Values WBC 14.1 K/mm3 (4.5-11.0) H 03/26/19 04:30 RBC 4.49 M/mm3 (3.65-5.03) 03/26/19 04:30 Hgb 13.8 gm/dl (11.8-15.2) 03/26/19 04:30 Hct 41.2 % (35.5-45.6) 03/26/19 04:30 MCV 92 fl (84-94) 03/26/19 04:30 MCH 31 pg (28-32) 03/26/19 04:30 MCHC 34 % (32-34) 03/26/19 04:30 RDW 12.5 % (13.2-15.2) L 03/26/19 04:30 Plt Count 313 K/mm3 (140-440) 03/26/19 04:30 Lymph % (Auto) 7.0 % (13.4-35.0) L 03/26/19 04:30 [place] % (Auto) 3.1 % (0.0-7.3) 03/26/19 04:30 Eos % (Auto) 0.0 % (0.0-4.3) 03/26/19 04:30 Baso % (Auto) 0.5 % (0.0-1.8) 03/26/19 04:30 Lymph # 1.0 K/mm3 (1.2-5.4) L 03/26/19 04:30 [place] # 0.4 K/mm3 (0.0-0.8) 03/26/19 04:30 Eos # 0.0 K/mm3 (0.0-0.4) 03/26/19 04:30 Baso # 0.1 K/mm3 (0.0-0.1) 03/26/19 04:30 Seg Neutrophils % 89.4 % (40.0-70.0) H 03/26/19 04:30 Seg Neutrophils # 12.6 K/mm3 (1.8-7.7) H 03/26/19 04:30 POC ABG pH 7.277 (7.35-7.45) L 03/25/19 18:39 ABG pH 7.386 pH Units (7.350-7.450) 03/26/19 05:00 POC ABG pCO2 43.0 (35-45) 03/25/19 18:39 ABG pCO2 28.7 mm Hg 03/26/19 05:00 POC ABG pO2 378 (80-105) H 03/25/19 18:39 ABG pO2 134.8 mm Hg (80.0-90.0) H 03/26/19 05:00 POC ABG HCO3 20.1 (22-26 mml/L) 03/25/19 18:39 ABG HCO3 16.8 mmol/L (20.0-26.0) L 03/26/19 05:00 POC ABG Total CO2 21 (23-27mmol/L) 03/25/19 18:39 POC ABG O2 Sat 100 03/25/19 18:39 ABG O2 Saturation 98.6 % (95.0-99.0) 03/26/19 05:00 ABG O2 Content 19.0 (0.0-44) 03/26/19 05:00 POC ABG Base Excess -7 ((-2) - (+3)mmol/L) 03/25/19 18:39 ABG Base Excess -6.8 mmol/L (-2.0-3.0) L 03/26/19 05:00 ABG Hemoglobin 13.8 gm/dl (14.0-18.0) L 03/26/19 05:00 ABG Carboxyhemoglobin 1.1 % (0.0-5.0) 03/26/19 05:00 ABG Methemoglobin 0.5 % (0.0-1.5) 03/26/19 05:00 VBG pH 7.231 (7.320-7.420) L 03/25/19 18:04 Oxyhemoglobin 97.0 % (95.0-99.0) 03/26/19 05:00 FiO2 40 % 03/26/19 05:00 Sodium 138 mmol/L (137-145) 03/26/19 04:30 Potassium 4.5 mmol/L (3.6-5.0) D 03/26/19 04:30 Chloride 111.1 mmol/L (98-107) H 03/26/19 04:30 Carbon Dioxide 19 mmol/L (22-30) L 03/26/19 04:30 Anion Gap 12 mmol/L 03/26/19 04:30 BUN 10 mg/dL (9-20) 03/26/19 04:30 Creatinine 0.7 mg/dL (0.8-1.5) L 03/26/19 04:30 Estimated GFR > 60 ml/min 03/26/19 04:30 BUN/Creatinine Ratio 14 % 03/26/19 04:30 Glucose 140 mg/dL (75-100) H 03/26/19 04:30 Hemoglobin A1c 4.7 % (4-6) 03/25/19 17:56 Lactic Acid 1.40 mmol/L (0.7-2.0) 03/26/19 00:15 Calcium 8.7 mg/dL (8.4-10.2) 03/26/19 04:30 Total Bilirubin 0.20 mg/dL (0.1-1.2) 03/26/19 04:30 AST 37 units/L (5-40) 03/26/19 04:30 ALT 46 units/L (7-56) 03/26/19 04:30 Alkaline Phosphatase 75 units/L (35-129) 03/26/19 04:30 Troponin T 0.077 ng/mL (0.00-0.029) H D 03/25/19 22:54 Total Protein 6.6 g/dL (6.3-8.2) 03/26/19 04:30 Albumin 3.9 g/dL (3.9-5) 03/26/19 04:30 Albumin/Globulin Ratio 1.4 % 03/26/19 04:30 Triglycerides 106 mg/dL (2-149) 03/25/19 17:56 Cholesterol 191 mg/dL (50-199) 03/25/19 17:56 LDL Cholesterol Direct 137 mg/dL (50-130) H 03/25/19 17:56 HDL Cholesterol 44 mg/dL (40-59) 03/25/19 17:56 Cholesterol/HDL Ratio 4.34 % 03/25/19 17:56 Urine Color Yellow (Yellow) 03/25/19 18:13 Urine Turbidity Slightly-cloudy (Clear) 03/25/19 18:13 Urine pH 5.0 (5.0-7.0) 03/25/19 18:13 Ur Specific [place] 1.023 (1.003-1.030) 03/25/19 18:13 Urine Protein 100 mg/dl mg/dL (Negative) 03/25/19 18:13 Urine Glucose (UA) 50 mg/dL (Negative) 03/25/19 18:13 Urine Ketones Neg mg/dL (Negative) 03/25/19 18:13 Urine Blood Neg (Negative) 03/25/19 18:13 Urine Nitrite Neg (Negative) 03/25/19 18:13 Urine Bilirubin Neg (Negative) 03/25/19 18:13 Urine Urobilinogen < 2.0 mg/dL (<2.0) 03/25/19 18:13 Ur Leukocyte Esterase Neg (Negative) 03/25/19 18:13 Urine WBC (Auto) 8.0 /HPF (0.0-6.0) H 03/25/19 18:13 Urine RBC (Auto) 7.0 /HPF (0.0-6.0) 03/25/19 18:13 Amorphous Crystals Few 03/25/19 18:13 Urine Mucus Few /HPF 03/25/19 18:13 Urine Opiates Screen Presumptive negative 03/25/19 Unknown Urine Methadone Screen Presumptive negative 03/25/19 Unknown Ur Barbiturates Screen Presumptive negative 03/25/19 Unknown Ur Phencyclidine Scrn Presumptive positive 03/25/19 Unknown Ur Amphetamines Screen Presumptive negative 03/25/19 Unknown U Benzodiazepines Scrn Presumptive positive 03/25/19 Unknown Urine Cocaine Screen Presumptive negative 03/25/19 Unknown U Marijuana (THC) Screen Presumptive negative 03/25/19 Unknown Drugs of Abuse Note Disclamer 03/25/19 Unknown Active Medications - Current Medications Current Medications: Generic Name Dose Route Start Last Admin Trade Name Freq PRN Reason Stop Dose Admin Acetaminophen 650 mg 03/25/19 21:35 Tylenol PO Q4H PRN Pain MILD(1-3)/Fever >100.5/ALCARAZ Albuterol 2.5 mg 03/25/19 21:48 Proventil IH Q4HRT PRN Shortness Of Breath Albuterol/Ipratropium 1 ampul 03/26/19 08:00 03/26/19 07:06 Duoneb *Not For Prn Use* IH 1 ampul QIDRT SILVANA Administration Famotidine 20 mg 03/26/19 10:00 03/26/19 09:11 Pepcid IV 20 mg BID SILVANA Administration Hydromorphone HCl 0.5 mg 03/25/19 21:35 Dilaudid IV Q3H PRN Pain , Severe (7-10) Lorazepam 100 mg/ Sodium 100 mls @ 1 mls/hr 03/25/19 18:00 03/26/19 09:53 Chloride/ Miscellaneous IV 4 mg/hr Information TITR SILVANA 4 mls/hr Administration Protocol 1 MG/HR Fentanyl Citrate 2,000 mcg in 100 mls @ 5.5 mls/hr 03/25/19 19:00 03/26/19 09:00 Fentanyl Drip Premix IV 1 mcg/kg/hr TITR SILVANA 5.5 mls/hr Administration Protocol 1 MCG/KG/HR Sodium Chloride 1,000 mls @ 100 mls/hr 03/25/19 22:00 03/25/19 23:25 Nacl 0.9% 1000 Ml IV 100 mls/hr DIRECT SILVANA Administration Levetiracetam 1,000 mg/ 110 mls @ 400 mls/hr 03/26/19 06:00 03/26/19 06:15 Dextrose IV Infused Q12H SILVANA Infusion Cefepime HCl 2 gm in 100 mls @ 200 mls/hr 03/25/19 22:00 03/26/19 06:15 Maxipime/Ns 2 Gm/100 Ml IV Infused Q8HR SILVANA Infusion Protocol Vancomycin HCl 1,750 mg/ 535 mls @ 333.333 mls/hr 03/26/19 11:00 Sodium Chloride IV Q12H SILVANA Methylprednisolone Sodium Succinate 40 mg 03/25/19 22:00 03/26/19 05:18 Solu-Medrol IV 40 mg Q8HR SILVANA Administration Metoclopramide HCl 10 mg 03/25/19 21:35 Reglan IV Q6H PRN Nausea And Vomiting Ondansetron HCl 4 mg 03/25/19 21:35 Zofran IV Q3H PRN Nausea And Vomiting Sodium Chloride 10 ml 03/25/19 22:00 03/26/19 09:11 Sodium Chloride Flush Syringe 10 Ml IV 10 ml BID SILVANA Administration Sodium Chloride 10 ml 03/25/19 21:35 Sodium Chloride Flush Syringe 10 Ml IV PRN PRN LINE FLUSH
--- NOTE | 2019-03-26 10:38 | History and Physical Report ---
CHIEF COMPLAINT: 1. Persistent seizures. 2. Cardiac arrest in the Emergency Room. HISTORY OF PRESENT ILLNESS: A 29-year-old with a history of traumatic brain injury____ cardiac arrest during seizures, comes to the Emergency Room for prolonged seizure activity. Mother found the patient seizing for a long time and called EMS services. The patient is being taken care of at home by the parents. ____ traumatic brain injury. PAST SURGICAL HISTORY: Vagal nerve stimulator. SOCIAL HISTORY: Does not smoke. Lives with parents. FAMILY HISTORY: Hypertension. CURRENT MEDICATIONS: Include Lamictal, Topamax, Desyrel and melatonin. REVIEW OF SYSTEMS: Significant for persistent seizures followed by cardiac arrest in the Emergency Room and intubation. PHYSICAL EXAMINATION: GENERAL: Young male, intubated. Sedated. VITAL SIGNS: Blood pressure 118/67, temperature 98, pulse 68, respirations 22. HEENT: Unremarkable. Pupils equal and reactive. NECK: Supple. No lymphadenopathy, no thyromegaly. LUNGS: Clear to auscultation and percussion. Good air entry. CARDIOVASCULAR: S1, S2 heard. No gallop, no murmur, no rub. Apical impulse in left fifth intercostal space and midclavicular line. ABDOMEN: Soft and benign EXTREMITIES: Good - pedal pulses. CENTRAL NERVOUS SYSTEM: The patient is sedated. CASE MANAGEMENT MANAGER exam could not be done. LABORATORY DATA: Significant for high white count of 16,400and H and H is 14.3 and ABG, pO2 of 378, pH is 7.277, lactic acid is 2.4. Potassium is 3.3. BUN and creatinine 13 and 0.9. Troponin is 0.034 and 0.077. Urine negative. Drug screen positive for phencyclidine screen and benzo screen. DIAGNOSTIC DATA: Head CT was negative for bleed. Chest x-ray, no acute findings. Head CT shows continued advancing cerebellar atrophy. No Hge. ASSESSMENT AND PLAN: 1. Status post cardiac arrest. The patient revived. No signs of anoxic encephalopathy. Continue supportive care. 2. Acute respiratory failure secondary to cardiac arrest and the patient intubated. Spray Operator consult requested. The patient to be weaned off ventilator in the next 24-48 hours. 3. Aspiration pneumonia, high possibility with high white count. The patient started on cefepime and vancomycin. 4. Seizure disorder. The patient started on IV Keppra. 5. Deep venous thrombosis prophylaxis, Lovenox 40 mg subcutaneously daily. 6.Hypokalemia-supplemented 7.SIRS--High WBC and elevated Lactic acid DISCHARGE PLANNING ISSUES: Family wants correction facility care from now on. Unable to take care of the patient. They have been taking good care of the patient. No sacral decubitus ulcers. CRITICAL CARE TIME: 32 minutes. JOB# [id number] ASHLEY/VALENTIN GALEANA
[2019-03-26] MEDS ORDERED: SODIUM BICARBONATE FEEDTUBE PRN ×2 (10:55→11:52)
[2019-03-26] MEDS ORDERED: PANCREAZE DR 10,500 UNIT FEEDTUBE PRN ×2 (10:55→11:52)
[2019-03-26] MEDS ORDERED: SIMPLE SYRUP FEEDTUBE PRN ×4 (10:55→11:52)
[2019-03-26] MEDS: KCL 10MEQ/100ML 10 MEQ/100 ML BAG IV SCH ×4 (11:00→14:00)
[2019-03-26] MEDS: VANCOMYCIN 1,750 MG in NACL 0.9% 500 ML 500 ML IV SCH ×2 (11:00→23:30)
--- NOTE | 2019-03-26 11:08 | Consultation ---
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 In the past, he had suffered a cardiac arrest. He was reportedly brought to the emergency department today after a prolonged seizure episode at home. While being evaluated in the ER, he developed another seizure episode and subsequently went into cardiac arrest. He was resuscitated and he is currently intubated and mechanically ventilated. Brain CT scan revealed advanced cerebellar atrophy. Past History Past Medical History: other (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; cardiac arrest; Echo 02/01 EF: 55-60%.) Past Surgical History: Other (VNS) Social history: other (details unobtainable) Family history: other (details unobtainable) Medications and Allergies Allergies Allergy/AdvReac Type Severity Reaction Status Date / Time Penicillins Allergy Angioedema Verified 01/01/18 13:03 shellfish derived Allergy Swelling Verified 01/01/18 13:03 Home Medications Medication Instructions Recorded Confirmed Last Taken Type Acetaminophen [Acetaminophen TAB] 650 mg PO Q6H PRN #30 tablet 10/16/18 03/25/19 Unknown Rx Melatonin [Melatonin 10MG TAB] 10 mg PO QHS #15 tablet 10/16/18 03/25/19 12/19/18 21:00 Rx 10 mg Topiramate [Topamax] 50 mg PO Q12HR #60 tablet 10/16/18 03/25/19 12/19/18 21:00 Rx 50 mg lamoTRIgine [LaMICtal] 300 mg PO BID #60 tablet 10/16/18 03/25/19 12/19/18 21:00 Rx raNITIdine HCl [Zantac] 150 mg PO BID #60 tablet 10/16/18 03/25/19 12/20/18 21:00 Rx 150 mg traZODone [Desyrel] 50 mg PO QPM #30 tablet 10/16/18 03/25/19 12/20/18 22:00 Rx 50 Lacosamide [Vimpat] 200 mg PO Q12HR #60 tablet 12/23/18 03/25/19 Unknown Rx Ondansetron [Zofran ORAL LIQ] 4 mg PO Q4H PRN 14 Days ml 12/23/18 03/25/19 Unknown Rx levETIRAcetam [Keppra] 1,500 mg PO BID #30 oral.liqd 12/23/18 03/25/19 Unknown Rx Active Meds: Active Medications Acetaminophen (Tylenol) 650 mg PO Q4H PRN PRN Reason: Pain MILD(1-3)/Fever >100.5/ALCARAZ Albuterol (Proventil) 2.5 mg IH Q4HRT PRN PRN Reason: Shortness Of Breath Albuterol/Ipratropium (Duoneb *Not For Prn Use*) 1 ampul IH QIDRT [facility] Last Admin: 03/26/19 07:06 Dose: 1 ampul Documented by: Lipase/Protease/Amylase (Pancreruby Dr 10,500 Unit) 1 each FEEDTUBE PRN PRN PRN Reason: For Clogged Feeding Tube Enoxaparin Sodium (Lovenox) 40 mg SUB-Q QDAY@2200 SILVANA Famotidine (Pepcid) 20 mg IV BID [facility] Last Admin: 03/26/19 09:11 Dose: 20 mg Documented by: Hydromorphone HCl (Dilaudid) 0.5 mg IV Q3H PRN PRN Reason: Pain , Severe (7-10) Lorazepam 100 mg/ Sodium Chloride/ Miscellaneous Information 100 mls @ 1 mls/hr IV TITR SILVANA; Protocol Last Admin: 03/26/19 09:53 Dose: 4 mg/hr, 4 mls/hr Documented by: Fentanyl Citrate (Fentanyl Drip Premix) 2,000 mcg in 100 mls @ 5.5 mls/hr IV TITR SILVANA; Protocol Last Admin: 03/26/19 09:00 Dose: 1 mcg/kg/hr, 5.5 mls/hr Documented by: Sodium Chloride (Nacl 0.9% 1000 Ml) 1,000 mls @ 100 mls/hr IV DIRECT [facility] Last Admin: 03/25/19 23:25 Dose: 100 mls/hr Documented by: Levetiracetam 1,000 mg/ (Dextrose) 110 mls @ 400 mls/hr IV Q12H [facility] Last Infusion: 03/26/19 06:15 Dose: Infused Documented by: Cefepime HCl (Maxipime/Ns 2 Gm/100 Ml) 2 gm in 100 mls @ 200 mls/hr IV Q8HR [facility]; Protocol Last Infusion: 03/26/19 06:15 Dose: Infused Documented by: Vancomycin HCl 1,750 mg/ (Sodium Chloride) 535 mls @ 333.333 mls/hr IV Q12H [facility] Potassium Chloride (Kcl 10meq/100ml) 10 meq in 100 mls @ 100 mls/hr IV Q1H [facility] Stop: 03/26/19 14:59 Methylprednisolone Sodium Succinate (Solu-Medrol) 40 mg IV Q8HR [facility] Last Admin: 03/26/19 05:18 Dose: 40 mg Documented by: Metoclopramide HCl (Reglan) 10 mg IV Q6H PRN PRN Reason: Nausea And Vomiting Ondansetron HCl (Zofran) 4 mg IV Q3H PRN PRN Reason: Nausea And Vomiting Simple Syrup (Simple Syrup) 15 ml FEEDTUBE PRN PRN PRN Reason: Hypoglycemia Simple Syrup (Simple Syrup) 30 ml FEEDTUBE PRN PRN PRN Reason: Hypoglycemia Sodium Bicarbonate (Sodium Bicarbonate) 325 mg FEEDTUBE PRN PRN PRN Reason: For Clogged Feeding Tube Sodium Chloride (Sodium Chloride Flush Syringe 10 Ml) 10 ml IV BID [facility] Last Admin: 03/26/19 09:11 Dose: 10 ml Documented by: Sodium Chloride (Sodium Chloride Flush Syringe 10 Ml) 10 ml IV PRN PRN PRN Reason: LINE FLUSH Review of Systems ROS unobtainable: due to endotracheal tube, due to mental status Physical Examination Vital Signs Last Vital Signs Temp 99.5 F 03/26/19 03:52 Pulse 80 03/26/19 09:00 Resp 24 03/26/19 09:00 BP 131/78 03/26/19 09:00 Pulse Ox 99 03/26/19 09:00 General appearance: no acute distress HEENT: Positive: Normocephaly, Mucus Membranes Moist Neck: Positive: neck supple, trachea midline Cardiac: Positive: Reg Rate and Rhythm, S1/S2 Lungs: Positive: Rhonchi Neuro: Positive: Other (sedated) Abdomen: Positive: Soft, Active Bowel Sounds Skin: Positive: Clear. Negative: Rash Musculoskeletal: Normal Range of Motion Extremities: Present: normal. Absent: edema Results 03/26/19 04:30 03/26/19 04:30 Cardiac Enzymes 03/25/19 03/26/19 Range/Units 17:56 04:30 AST 41 H 37 (5-40) units/L Lipids 03/25/19 Range/Units 17:56 Triglycerides 106 (2-149) mg/dL Cholesterol 191 (50-199) mg/dL HDL Cholesterol 44 (40-59) mg/dL Cholesterol/HDL Ratio 4.34 % CBC 03/25/19 03/26/19 Range/Units 17:56 04:30 WBC 16.4 H 14.1 H (4.5-11.0) K/mm3 RBC 4.65 4.49 (3.65-5.03) M/mm3 Hgb 14.3 13.8 (11.8-15.2) gm/dl Hct 42.9 41.2 (35.5-45.6) % Plt Count 398 313 (140-440) K/mm3 Lymph # 2.2 1.0 L (1.2-5.4) K/mm3 [place] # 0.8 0.4 (0.0-0.8) K/mm3 Eos # 0.0 0.0 (0.0-0.4) K/mm3 Baso # 0.1 0.1 (0.0-0.1) K/mm3 Comprehensive Metabolic Panel 03/25/19 03/26/19 Range/Units 17:56 04:30 Sodium 142 138 (137-145) mmol/L Potassium 3.3 L 4.5 D (3.6-5.0) mmol/L Chloride 108.6 H 111.1 H (98-107) mmol/L Carbon Dioxide 19 L 19 L (22-30) mmol/L BUN 13 10 (9-20) mg/dL Creatinine 0.9 0.7 L (0.8-1.5) mg/dL Glucose 182 H 140 H (75-100) mg/dL Calcium 8.3 L 8.7 (8.4-10.2) mg/dL AST 41 H 37 (5-40) units/L ALT 55 46 (7-56) units/L Alkaline Phosphatase 89 75 (35-129) units/L Total Protein 7.0 6.6 (6.3-8.2) g/dL Albumin 4.2 3.9 (3.9-5) g/dL - Imaging and Cardiology EKG: image reviewed EKG interpretations - Telemetry EKG Rhythm: Sinus Tachycardia - EKG Sinus rhythms and dysrhythmias: sinus tachycardia AV and intraventricular conduction: right bundle branch block Chamber hypertrophy or enlargement: left ventricular hypertro Assessment and Plan Obtain echocardiogram. Continue current management. - Patient Problems (1) Cardiopulmonary arrest Current Visit: Yes Status: Acute (2) Acute respiratory failure Current Visit: Yes Status: Acute (3) Status epilepticus Current Visit: Yes Status: Acute (4) MERRF (myoclonus epilepsy and ragged red fibers) Current Visit: Yes Status: Chronic
--- NOTE | 2019-03-26 13:43 | Progress Note ---
Subjective Date of service: 03/26/19 Interval history: see my note from the ED patient well known to me as see him as outpatient andd have records from [place] Objective - Vital Sign Vital Signs - 12hr 03/26/19 03/26/19 03/26/19 01:51 02:00 02:11 Temperature Pulse Rate 91 H 85 79 Pulse Rate [ Anterior Bilateral Throughout] Pulse Rate [ From Monitor] Respiratory 15 22 16 Rate Respiratory Rate [Anterior Bilateral Throughout] Blood Pressure 123/74 132/72 132/72 O2 Sat by Pulse 100 100 100 Oximetry 03/26/19 03/26/19 03/26/19 02:20 02:30 02:40 Temperature Pulse Rate 74 74 74 Pulse Rate [ Anterior Bilateral Throughout] Pulse Rate [ From Monitor] Respiratory 22 22 21 Rate Respiratory Rate [Anterior Bilateral Throughout] Blood Pressure 132/72 132/72 O2 Sat by Pulse 100 99 100 Oximetry 03/26/19 03/26/19 03/26/19 02:50 03:00 03:10 Temperature Pulse Rate 75 74 73 Pulse Rate [ Anterior Bilateral Throughout] Pulse Rate [ From Monitor] Respiratory 22 22 22 Rate Respiratory Rate [Anterior Bilateral Throughout] Blood Pressure 132/72 122/69 122/69 O2 Sat by Pulse 100 99 99 Oximetry 03/26/19 03/26/19 03/26/19 03:20 03:30 03:40 Temperature Pulse Rate 74 74 73 Pulse Rate [ Anterior Bilateral Throughout] Pulse Rate [ From Monitor] Respiratory 22 22 22 Rate Respiratory Rate [Anterior Bilateral Throughout] Blood Pressure 122/69 122/69 122/69 O2 Sat by Pulse 100 99 99 Oximetry 03/26/19 03/26/19 03/26/19 03:50 03:52 04:00 Temperature 99.5 F Pulse Rate 71 70 Pulse Rate [ Anterior Bilateral Throughout] Pulse Rate [ 70 From Monitor] Respiratory 22 22 Rate Respiratory Rate [Anterior Bilateral Throughout] Blood Pressure 122/69 122/69 O2 Sat by Pulse 100 99 Oximetry 03/26/19 03/26/19 03/26/19 04:10 04:20 04:30 Temperature Pulse Rate 71 71 69 Pulse Rate [ Anterior Bilateral Throughout] Pulse Rate [ From Monitor] Respiratory 22 22 22 Rate Respiratory Rate [Anterior Bilateral Throughout] Blood Pressure 122/71 122/69 122/69 O2 Sat by Pulse 99 99 99 Oximetry 03/26/19 03/26/19 03/26/19 04:40 04:50 04:55 Temperature Pulse Rate 91 H 72 70 Pulse Rate [ Anterior Bilateral Throughout] Pulse Rate [ From Monitor] Respiratory 12 22 Rate Respiratory Rate [Anterior Bilateral Throughout] Blood Pressure 122/69 122/71 122/71 O2 Sat by Pulse 100 98 98 Oximetry 03/26/19 03/26/19 03/26/19 05:00 05:10 05:20 Temperature Pulse Rate 71 68 67 Pulse Rate [ Anterior Bilateral Throughout] Pulse Rate [ From Monitor] Respiratory 17 22 22 Rate Respiratory Rate [Anterior Bilateral Throughout] Blood Pressure 122/71 122/71 122/71 O2 Sat by Pulse 100 99 100 Oximetry 03/26/19 03/26/19 03/26/19 05:30 05:40 05:50 Temperature Pulse Rate 68 70 71 Pulse Rate [ Anterior Bilateral Throughout] Pulse Rate [ From Monitor] Respiratory 22 22 10 L Rate Respiratory Rate [Anterior Bilateral Throughout] Blood Pressure 122/71 122/71 122/71 O2 Sat by Pulse 99 99 100 Oximetry 03/26/19 03/26/19 03/26/19 06:00 06:10 06:20 Temperature Pulse Rate 71 70 70 Pulse Rate [ Anterior Bilateral Throughout] Pulse Rate [ From Monitor] Respiratory 21 23 22 Rate Respiratory Rate [Anterior Bilateral Throughout] Blood Pressure 118/67 118/67 118/67 O2 Sat by Pulse 99 100 99 Oximetry 03/26/19 03/26/19 03/26/19 06:30 06:40 06:50 Temperature Pulse Rate 69 68 68 Pulse Rate [ Anterior Bilateral Throughout] Pulse Rate [ From Monitor] Respiratory 22 22 22 Rate Respiratory Rate [Anterior Bilateral Throughout] Blood Pressure 118/67 118/67 118/67 O2 Sat by Pulse 100 99 100 Oximetry 03/26/19 03/26/19 03/26/19 07:00 07:06 07:10 Temperature Pulse Rate 68 74 73 Pulse Rate [ 78 Anterior Bilateral Throughout] Pulse Rate [ From Monitor] Respiratory 17 19 Rate Respiratory 23 Rate [Anterior Bilateral Throughout] Blood Pressure 122/70 122/70 122/70 O2 Sat by Pulse 100 97 98 Oximetry 03/26/19 03/26/19 03/26/19 07:20 07:30 07:40 Temperature Pulse Rate 98 H 86 80 Pulse Rate [ Anterior Bilateral Throughout] Pulse Rate [ From Monitor] Respiratory 20 22 19 Rate Respiratory Rate [Anterior Bilateral Throughout] Blood Pressure 122/70 122/70 122/70 O2 Sat by Pulse 99 100 99 Oximetry 03/26/19 03/26/19 03/26/19 07:50 08:00 08:10 Temperature Pulse Rate 77 73 81 Pulse Rate [ Anterior Bilateral Throughout] Pulse Rate [ 79 From Monitor] Respiratory 21 13 11 L Rate Respiratory Rate [Anterior Bilateral Throughout] Blood Pressure 122/70 123/69 123/69 O2 Sat by Pulse 98 99 99 Oximetry 03/26/19 03/26/19 03/26/19 08:20 08:30 08:40 Temperature Pulse Rate 110 H 97 H 107 H Pulse Rate [ Anterior Bilateral Throughout] Pulse Rate [ From Monitor] Respiratory 18 22 20 Rate Respiratory Rate [Anterior Bilateral Throughout] Blood Pressure 123/69 122/70 122/70 O2 Sat by Pulse 100 99 100 Oximetry 03/26/19 03/26/19 03/26/19 08:50 09:00 09:10 Temperature Pulse Rate 86 80 78 Pulse Rate [ Anterior Bilateral Throughout] Pulse Rate [ From Monitor] Respiratory 22 24 22 Rate Respiratory Rate [Anterior Bilateral Throughout] Blood Pressure 122/70 131/78 131/78 O2 Sat by Pulse 99 99 99 Oximetry 03/26/19 03/26/19 03/26/19 09:20 09:30 09:40 Temperature Pulse Rate 75 72 108 H Pulse Rate [ Anterior Bilateral Throughout] Pulse Rate [ From Monitor] Respiratory 22 22 11 L Rate Respiratory Rate [Anterior Bilateral Throughout] Blood Pressure 131/78 131/78 131/78 O2 Sat by Pulse 99 99 100 Oximetry 03/26/19 03/26/19 03/26/19 09:50 10:00 10:10 Temperature Pulse Rate 109 H 81 77 Pulse Rate [ Anterior Bilateral Throughout] Pulse Rate [ From Monitor] Respiratory 15 19 22 Rate Respiratory Rate [Anterior Bilateral Throughout] Blood Pressure 131/78 122/66 122/66 O2 Sat by Pulse 99 99 99 Oximetry 03/26/19 03/26/19 03/26/19 10:20 10:30 10:40 Temperature Pulse Rate 74 88 96 H Pulse Rate [ Anterior Bilateral Throughout] Pulse Rate [ From Monitor] Respiratory 22 12 22 Rate Respiratory Rate [Anterior Bilateral Throughout] Blood Pressure 122/66 122/66 122/66 O2 Sat by Pulse 99 100 99 Oximetry 03/26/19 03/26/19 03/26/19 10:50 11:00 11:10 Temperature Pulse Rate 93 H 98 H 82 Pulse Rate [ Anterior Bilateral Throughout] Pulse Rate [ From Monitor] Respiratory 22 14 16 Rate Respiratory Rate [Anterior Bilateral Throughout] Blood Pressure 122/66 125/65 125/65 O2 Sat by Pulse 100 99 100 Oximetry 03/26/19 03/26/19 03/26/19 11:20 11:30 11:40 Temperature Pulse Rate 101 H 108 H 100 H Pulse Rate [ Anterior Bilateral Throughout] Pulse Rate [ From Monitor] Respiratory 14 20 22 Rate Respiratory Rate [Anterior Bilateral Throughout] Blood Pressure 125/65 125/65 125/65 O2 Sat by Pulse 100 100 97 Oximetry 03/26/19 03/26/19 03/26/19 11:50 12:00 12:10 Temperature Pulse Rate 98 H 72 71 Pulse Rate [ 76 Anterior Bilateral Throughout] Pulse Rate [ 70 From Monitor] Respiratory 17 15 18 Rate Respiratory 22 Rate [Anterior Bilateral Throughout] Blood Pressure 125/65 124/65 124/65 O2 Sat by Pulse 100 100 100 Oximetry 03/26/19 03/26/19 03/26/19 12:20 12:30 12:40 Temperature Pulse Rate 72 74 72 Pulse Rate [ Anterior Bilateral Throughout] Pulse Rate [ From Monitor] Respiratory 22 22 21 Rate Respiratory Rate [Anterior Bilateral Throughout] Blood Pressure 124/65 124/65 124/65 O2 Sat by Pulse 100 97 98 Oximetry - Laboratory Findings CBC and BMP: 03/26/19 04:30 03/26/19 04:30 Abnormal Lab Findings: Abnormal Labs 03/25/19 03/25/19 03/25/19 17:56 17:56 17:56 WBC 16.4 H RDW 12.6 L Lymph % (Auto) 13.3 L Lymph # Seg Neutrophils % 80.8 H Seg Neutrophils # 13.3 H POC ABG pH POC ABG pO2 ABG pO2 ABG HCO3 ABG Base Excess ABG Hemoglobin VBG pH Potassium 3.3 L Chloride 108.6 H Carbon Dioxide 19 L Creatinine Glucose 182 H Lactic Acid 4.80 H* Calcium 8.3 L AST 41 H Troponin T 0.034 H LDL Cholesterol Direct 137 H Urine WBC (Auto) 03/25/19 03/25/19 03/25/19 18:04 18:13 18:39 WBC RDW Lymph % (Auto) Lymph # Seg Neutrophils % Seg Neutrophils # POC ABG pH 7.277 L POC ABG pO2 378 H ABG pO2 ABG HCO3 ABG Base Excess ABG Hemoglobin VBG pH 7.231 L Potassium Chloride Carbon Dioxide Creatinine Glucose Lactic Acid Calcium AST Troponin T LDL Cholesterol Direct Urine WBC (Auto) 8.0 H 03/25/19 03/25/19 03/25/19 19:36 20:29 22:54 WBC RDW Lymph % (Auto) Lymph # Seg Neutrophils % Seg Neutrophils # POC ABG pH POC ABG pO2 ABG pO2 ABG HCO3 ABG Base Excess ABG Hemoglobin VBG pH Potassium Chloride Carbon Dioxide Creatinine Glucose Lactic Acid 2.40 H* 2.30 H* Calcium AST Troponin T 0.077 H D LDL Cholesterol Direct Urine WBC (Auto) 03/25/19 03/26/19 03/26/19 22:54 04:30 04:30 WBC 14.1 H RDW 12.5 L Lymph % (Auto) 7.0 L Lymph # 1.0 L Seg Neutrophils % 89.4 H Seg Neutrophils # 12.6 H POC ABG pH POC ABG pO2 ABG pO2 ABG HCO3 ABG Base Excess ABG Hemoglobin VBG pH Potassium Chloride 111.1 H Carbon Dioxide 19 L Creatinine 0.7 L Glucose 140 H Lactic Acid 2.10 H* Calcium AST Troponin T LDL Cholesterol Direct Urine WBC (Auto) 03/26/19 05:00 WBC RDW Lymph % (Auto) Lymph # Seg Neutrophils % Seg Neutrophils # POC ABG pH POC ABG pO2 ABG pO2 134.8 H ABG HCO3 16.8 L ABG Base Excess -6.8 L ABG Hemoglobin 13.8 L VBG pH Potassium Chloride Carbon Dioxide Creatinine Glucose Lactic Acid Calcium AST Troponin T LDL Cholesterol Direct Urine WBC (Auto)
--- NOTE | 2019-03-26 16:52 | Progress Note ---
Subjective Date of service: 03/26/19 Interval history: went over the EEG at the bedside and there are no active seizures there is slow wave activity no epileptic activity meds appear to be effective I would note that prior to admission he wa refusing his medications so non compliance was cause of seizure I really am puzzled at why he has been going into status and has cardiac arrest so often this is truly ominous mother is not around to speak to Objective - Vital Sign Vital Signs - 12hr 03/26/19 03/26/19 03/26/19 04:50 04:55 05:00 Pulse Rate 72 70 71 Pulse Rate [ Anterior Bilateral Throughout] Pulse Rate [ From Monitor] Respiratory 22 17 Rate Respiratory Rate [Anterior Bilateral Throughout] Blood Pressure 122/71 122/71 122/71 O2 Sat by Pulse 98 98 100 Oximetry 03/26/19 03/26/19 03/26/19 05:10 05:20 05:30 Pulse Rate 68 67 68 Pulse Rate [ Anterior Bilateral Throughout] Pulse Rate [ From Monitor] Respiratory 22 22 22 Rate Respiratory Rate [Anterior Bilateral Throughout] Blood Pressure 122/71 122/71 122/71 O2 Sat by Pulse 99 100 99 Oximetry 03/26/19 03/26/19 03/26/19 05:40 05:50 06:00 Pulse Rate 70 71 71 Pulse Rate [ Anterior Bilateral Throughout] Pulse Rate [ From Monitor] Respiratory 22 10 L 21 Rate Respiratory Rate [Anterior Bilateral Throughout] Blood Pressure 122/71 122/71 118/67 O2 Sat by Pulse 99 100 99 Oximetry 03/26/19 03/26/19 03/26/19 06:10 06:20 06:30 Pulse Rate 70 70 69 Pulse Rate [ Anterior Bilateral Throughout] Pulse Rate [ From Monitor] Respiratory 23 22 22 Rate Respiratory Rate [Anterior Bilateral Throughout] Blood Pressure 118/67 118/67 118/67 O2 Sat by Pulse 100 99 100 Oximetry 03/26/19 03/26/19 03/26/19 06:40 06:50 07:00 Pulse Rate 68 68 68 Pulse Rate [ Anterior Bilateral Throughout] Pulse Rate [ From Monitor] Respiratory 22 22 17 Rate Respiratory Rate [Anterior Bilateral Throughout] Blood Pressure 118/67 118/67 122/70 O2 Sat by Pulse 99 100 100 Oximetry 03/26/19 03/26/19 03/26/19 07:06 07:10 07:20 Pulse Rate 74 73 98 H Pulse Rate [ 78 Anterior Bilateral Throughout] Pulse Rate [ From Monitor] Respiratory 19 20 Rate Respiratory 23 Rate [Anterior Bilateral Throughout] Blood Pressure 122/70 122/70 122/70 O2 Sat by Pulse 97 98 99 Oximetry 03/26/19 03/26/19 03/26/19 07:30 07:40 07:50 Pulse Rate 86 80 77 Pulse Rate [ Anterior Bilateral Throughout] Pulse Rate [ From Monitor] Respiratory 22 19 21 Rate Respiratory Rate [Anterior Bilateral Throughout] Blood Pressure 122/70 122/70 122/70 O2 Sat by Pulse 100 99 98 Oximetry 03/26/19 03/26/19 03/26/19 08:00 08:10 08:20 Pulse Rate 73 81 110 H Pulse Rate [ Anterior Bilateral Throughout] Pulse Rate [ 79 From Monitor] Respiratory 13 11 L 18 Rate Respiratory Rate [Anterior Bilateral Throughout] Blood Pressure 123/69 123/69 123/69 O2 Sat by Pulse 99 99 100 Oximetry 03/26/19 03/26/19 03/26/19 08:30 08:40 08:50 Pulse Rate 97 H 107 H 86 Pulse Rate [ Anterior Bilateral Throughout] Pulse Rate [ From Monitor] Respiratory 22 20 22 Rate Respiratory Rate [Anterior Bilateral Throughout] Blood Pressure 122/70 122/70 122/70 O2 Sat by Pulse 99 100 99 Oximetry 03/26/19 03/26/19 03/26/19 09:00 09:10 09:20 Pulse Rate 80 78 75 Pulse Rate [ Anterior Bilateral Throughout] Pulse Rate [ From Monitor] Respiratory 24 22 22 Rate Respiratory Rate [Anterior Bilateral Throughout] Blood Pressure 131/78 131/78 131/78 O2 Sat by Pulse 99 99 99 Oximetry 03/26/19 03/26/19 03/26/19 09:30 09:40 09:50 Pulse Rate 72 108 H 109 H Pulse Rate [ Anterior Bilateral Throughout] Pulse Rate [ From Monitor] Respiratory 22 11 L 15 Rate Respiratory Rate [Anterior Bilateral Throughout] Blood Pressure 131/78 131/78 131/78 O2 Sat by Pulse 99 100 99 Oximetry 03/26/19 03/26/19 03/26/19 10:00 10:10 10:20 Pulse Rate 81 77 74 Pulse Rate [ Anterior Bilateral Throughout] Pulse Rate [ From Monitor] Respiratory 19 22 22 Rate Respiratory Rate [Anterior Bilateral Throughout] Blood Pressure 122/66 122/66 122/66 O2 Sat by Pulse 99 99 99 Oximetry 10/05/0403/26/19 03/26/19 10:30 10:40 10:50 Pulse Rate 88 96 H 93 H Pulse Rate [ Anterior Bilateral Throughout] Pulse Rate [ From Monitor] Respiratory 12 22 22 Rate Respiratory Rate [Anterior Bilateral Throughout] Blood Pressure 122/66 122/66 122/66 O2 Sat by Pulse 100 99 100 Oximetry 03/26/19 03/26/19 03/26/19 11:00 11:10 11:20 Pulse Rate 98 H 82 101 H Pulse Rate [ Anterior Bilateral Throughout] Pulse Rate [ From Monitor] Respiratory 14 16 14 Rate Respiratory Rate [Anterior Bilateral Throughout] Blood Pressure 125/65 125/65 125/65 O2 Sat by Pulse 99 100 100 Oximetry 03/26/19 03/26/19 03/26/19 11:30 11:40 11:50 Pulse Rate 108 H 100 H 98 H Pulse Rate [ 76 Anterior Bilateral Throughout] Pulse Rate [ From Monitor] Respiratory 20 22 17 Rate Respiratory 22 Rate [Anterior Bilateral Throughout] Blood Pressure 125/65 125/65 125/65 O2 Sat by Pulse 100 97 100 Oximetry 03/26/19 03/26/19 03/26/19 12:00 12:10 12:20 Pulse Rate 72 71 72 Pulse Rate [ Anterior Bilateral Throughout] Pulse Rate [ 70 From Monitor] Respiratory 15 18 22 Rate Respiratory Rate [Anterior Bilateral Throughout] Blood Pressure 124/65 124/65 124/65 O2 Sat by Pulse 100 100 100 Oximetry 03/26/19 03/26/19 03/26/19 12:30 12:40 12:50 Pulse Rate 74 72 71 Pulse Rate [ Anterior Bilateral Throughout] Pulse Rate [ From Monitor] Respiratory 22 21 22 Rate Respiratory Rate [Anterior Bilateral Throughout] Blood Pressure 124/65 124/65 124/65 O2 Sat by Pulse 97 98 97 Oximetry 03/26/19 03/26/19 03/26/19 13:00 13:10 13:20 Pulse Rate 67 69 67 Pulse Rate [ Anterior Bilateral Throughout] Pulse Rate [ From Monitor] Respiratory 22 13 20 Rate Respiratory Rate [Anterior Bilateral Throughout] Blood Pressure 115/54 115/54 115/54 O2 Sat by Pulse 98 98 98 Oximetry 03/26/19 03/26/19 03/26/19 13:30 13:40 13:50 Pulse Rate 69 68 70 Pulse Rate [ Anterior Bilateral Throughout] Pulse Rate [ From Monitor] Respiratory 20 20 22 Rate Respiratory Rate [Anterior Bilateral Throughout] Blood Pressure 115/54 115/54 115/54 O2 Sat by Pulse 97 98 98 Oximetry 03/26/19 03/26/19 03/26/19 14:00 14:10 14:20 Pulse Rate 68 67 66 Pulse Rate [ Anterior Bilateral Throughout] Pulse Rate [ From Monitor] Respiratory 15 21 19 Rate Respiratory Rate [Anterior Bilateral Throughout] Blood Pressure 113/56 113/56 113/56 O2 Sat by Pulse 98 98 98 Oximetry 03/26/19 03/26/19 03/26/19 14:30 14:40 14:50 Pulse Rate 68 64 66 Pulse Rate [ Anterior Bilateral Throughout] Pulse Rate [ From Monitor] Respiratory 22 22 18 Rate Respiratory Rate [Anterior Bilateral Throughout] Blood Pressure 113/56 113/56 113/56 O2 Sat by Pulse 97 98 98 Oximetry 03/26/19 03/26/19 03/26/19 15:00 15:10 15:18 Pulse Rate 66 66 102 H Pulse Rate [ 108 H Anterior Bilateral Throughout] Pulse Rate [ From Monitor] Respiratory 17 19 Rate Respiratory 24 Rate [Anterior Bilateral Throughout] Blood Pressure 115/57 115/57 127/69 O2 Sat by Pulse 99 99 98 Oximetry 03/26/19 03/26/19 03/26/19 15:20 15:30 15:40 Pulse Rate 66 66 63 Pulse Rate [ Anterior Bilateral Throughout] Pulse Rate [ From Monitor] Respiratory 23 18 19 Rate Respiratory Rate [Anterior Bilateral Throughout] Blood Pressure 115/57 115/57 115/57 O2 Sat by Pulse 98 97 98 Oximetry 03/26/19 03/26/19 03/26/19 15:50 16:00 16:10 Pulse Rate 75 102 H 109 H Pulse Rate [ Anterior Bilateral Throughout] Pulse Rate [ 126 H From Monitor] Respiratory 19 20 15 Rate Respiratory Rate [Anterior Bilateral Throughout] Blood Pressure 115/57 127/69 127/69 O2 Sat by Pulse 98 99 99 Oximetry 03/26/19 03/26/19 16:20 16:30 Pulse Rate 104 H 118 H Pulse Rate [ Anterior Bilateral Throughout] Pulse Rate [ From Monitor] Respiratory 19 21 Rate Respiratory Rate [Anterior Bilateral Throughout] Blood Pressure 127/69 127/69 O2 Sat by Pulse 98 100 Oximetry - Laboratory Findings CBC and BMP: 03/26/19 04:30 03/26/19 04:30 Abnormal Lab Findings: Abnormal Labs 03/25/19 03/25/19 03/25/19 17:56 17:56 17:56 WBC 16.4 H RDW 12.6 L Lymph % (Auto) 13.3 L Lymph # Seg Neutrophils % 80.8 H Seg Neutrophils # 13.3 H POC ABG pH POC ABG pO2 ABG pO2 ABG HCO3 ABG Base Excess ABG Hemoglobin VBG pH Potassium 3.3 L Chloride 108.6 H Carbon Dioxide 19 L Creatinine Glucose 182 H POC Glucose Lactic Acid 4.80 H* Calcium 8.3 L AST 41 H Troponin T 0.034 H LDL Cholesterol Direct 137 H Urine WBC (Auto) 03/25/19 03/25/19 03/25/19 18:04 18:13 18:39 WBC RDW Lymph % (Auto) Lymph # Seg Neutrophils % Seg Neutrophils # POC ABG pH 7.277 L POC ABG pO2 378 H ABG pO2 ABG HCO3 ABG Base Excess ABG Hemoglobin VBG pH 7.231 L Potassium Chloride Carbon Dioxide Creatinine Glucose POC Glucose Lactic Acid Calcium AST Troponin T LDL Cholesterol Direct Urine WBC (Auto) 8.0 H 03/25/19 03/25/19 03/25/19 19:36 20:29 22:54 WBC RDW Lymph % (Auto) Lymph # Seg Neutrophils % Seg Neutrophils # POC ABG pH POC ABG pO2 ABG pO2 ABG HCO3 ABG Base Excess ABG Hemoglobin VBG pH Potassium Chloride Carbon Dioxide Creatinine Glucose POC Glucose Lactic Acid 2.40 H* 2.30 H* Calcium AST Troponin T 0.077 H D LDL Cholesterol Direct Urine WBC (Auto) 03/25/19 03/26/19 03/26/19 22:54 04:30 04:30 WBC 14.1 H RDW 12.5 L Lymph % (Auto) 7.0 L Lymph # 1.0 L Seg Neutrophils % 89.4 H Seg Neutrophils # 12.6 H POC ABG pH POC ABG pO2 ABG pO2 ABG HCO3 ABG Base Excess ABG Hemoglobin VBG pH Potassium Chloride 111.1 H Carbon Dioxide 19 L Creatinine 0.7 L Glucose 140 H POC Glucose Lactic Acid 2.10 H* Calcium AST Troponin T LDL Cholesterol Direct Urine WBC (Auto) 03/26/19 03/26/19 05:00 16:24 WBC RDW Lymph % (Auto) Lymph # Seg Neutrophils % Seg Neutrophils # POC ABG pH POC ABG pO2 ABG pO2 134.8 H ABG HCO3 16.8 L ABG Base Excess -6.8 L ABG Hemoglobin 13.8 L VBG pH Potassium Chloride Carbon Dioxide Creatinine Glucose POC Glucose 119 H Lactic Acid Calcium AST Troponin T LDL Cholesterol Direct Urine WBC (Auto)
--- NOTE | 2019-03-26 20:29 | Electroencephalogram Report ---
Electroencephalogram EEG Date of exam: 03/26/19 History: Patient is a 29 y/o man w/ a h/o MERRF, refractory seizures, history of cardiac arrest, who p/w seizures, and went into cardiac arrest, after which he returned to ROSC after CPR. Description: Impression: 1. Generalized slowing. 2. No seizures noted during recording. 3. Significant movement artifact noted. 4. Intermittent beta activity noted, likely due to medications. Description: Electrodes were applied using paste technique and positions dictated by the international 1020 system replacement. Recording montage included both referential and bipolar derivations. In addition to EKG data EKG and eye movements were recorded. At the onset of this recording, the patient is lying supine. In the background we note a 5-7 Hz theta activity that has an amplitude ranging 20-30 V. Additional low voltage beta activity occurs symmetrically at the anterior head regions bilaterally. There are no asymmetries in amplitude and frequency between hemispheres. Intermittent beta activity is noted. Significant movement and lead artifact is noted. Photic stimulation was not performed. Hyperventilation was not performed. Throughout, the recording there are no epileptiform abnormalities, focal or lateralizing features, or significant interhemispheric findings. Interpretation: The routine EEG performed during wakefulness, drowsiness, and sleep, is abnormal secondary to above findings and is consistent with bihemispheric dysfunction and encephalopathy. The above-described findings of diffuse slowing is etiologically nonspecific and similar findings have been reported in cases of toxic, metabolic, hypoxic ischemic, infectious, medication, sleep deprivation, dementia, postictal state, and other causes a diffuse and multifocal encephalopathy.
--- NOTE | 2019-03-26 21:06 | Consultation ---
History of Present Illness Consult date: 03/26/19 Requesting physician: NUSRAT REYNOLDS Reason for consult: other (acute respiratory failure) History of present illness: Pt. presented with status epilepticus. He subsequently had a cardiac arrest and required intubation. He had ROSC. He is currently on Ativan drip and Fentanyl drip as well. He is arousable on the vent and follows commands but cannot give history. Per neurology notes there was come concern for noncompliance w/ his seizure meds. No family present to furnish any other hx. Active Medications Acetaminophen (Tylenol) 650 mg PO Q4H PRN PRN Reason: Pain MILD(1-3)/Fever >100.5/ALCARAZ Albuterol (Proventil) 2.5 mg IH Q4HRT PRN PRN Reason: Shortness Of Breath Albuterol/Ipratropium (Duoneb *Not For Prn Use*) 1 ampul IH QIDRT ON LICENSE OF [facility] Last Admin: 03/26/19 19:45 Dose: 1 ampul Documented by: Lipase/Protease/Amylase (Pancreruby Dr 10,500 Unit) 1 each FEEDTUBE PRN PRN PRN Reason: For Clogged Feeding Tube Enoxaparin Sodium (Lovenox) 40 mg SUB-Q QDAY@2200 SILVANA Famotidine (Pepcid) 20 mg IV BID ON LICENSE OF [facility] Last Admin: 03/26/19 09:11 Dose: 20 mg Documented by: Hydromorphone HCl (Dilaudid) 0.5 mg IV Q3H PRN PRN Reason: Pain , Severe (7-10) Lorazepam 100 mg/ Sodium Chloride/ Miscellaneous Information 100 mls @ 1 mls/hr IV TITR SILVANA; Protocol Last Admin: 03/26/19 09:53 Dose: 4 mg/hr, 4 mls/hr Documented by: Fentanyl Citrate (Fentanyl Drip Premix) 2,000 mcg in 100 mls @ 5.5 mls/hr IV TITR SILVANA; Protocol Last Admin: 03/26/19 09:00 Dose: 1 mcg/kg/hr, 5.5 mls/hr Documented by: Sodium Chloride (Nacl 0.9% 1000 Ml) 1,000 mls @ 100 mls/hr IV DIRECT SILVANA Last Admin: 03/25/19 23:25 Dose: 100 mls/hr Documented by: Levetiracetam 1,000 mg/ (Dextrose) 110 mls @ 400 mls/hr IV Q12H ON LICENSE OF [facility] Last Infusion: 03/26/19 18:00 Dose: Infused Documented by: Cefepime HCl (Maxipime/Ns 2 Gm/100 Ml) 2 gm in 100 mls @ 200 mls/hr IV Q8HR SILVANA; Protocol Last Infusion: 03/26/19 14:30 Dose: Infused Documented by: Vancomycin HCl 1,750 mg/ (Sodium Chloride) 535 mls @ 333.333 mls/hr IV Q12H ON LICENSE OF [facility] Last Infusion: 03/26/19 12:40 Dose: Infused Documented by: Potassium Chloride (Kcl 10meq/100ml) 10 meq in 100 mls @ 100 mls/hr IV Q1H ON LICENSE OF [facility] Stop: 03/26/19 14:59 Methylprednisolone Sodium Succinate (Solu-Medrol) 40 mg IV Q8HR SILVANA Last Admin: 03/26/19 14:00 Dose: 40 mg Documented by: Metoclopramide HCl (Reglan) 10 mg IV Q6H PRN PRN Reason: Nausea And Vomiting Ondansetron HCl (Zofran) 4 mg IV Q3H PRN PRN Reason: Nausea And Vomiting Simple Syrup (Simple Syrup) 15 ml FEEDTUBE PRN PRN PRN Reason: Hypoglycemia Simple Syrup (Simple Syrup) 30 ml FEEDTUBE PRN PRN PRN Reason: Hypoglycemia Sodium Bicarbonate (Sodium Bicarbonate) 325 mg FEEDTUBE PRN PRN PRN Reason: For Clogged Feeding Tube Sodium Chloride (Sodium Chloride Flush Syringe 10 Ml) 10 ml IV BID ON LICENSE OF [facility] Last Admin: 03/26/19 09:11 Dose: 10 ml Documented by: Sodium Chloride (Sodium Chloride Flush Syringe 10 Ml) 10 ml IV PRN PRN PRN Reason: LINE FLUSH Past History Past Medical History: other (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; cardiac arrest; Echo 02/01 EF: 55-60%.) Past Surgical History: Other (VNS) Social history: other (details unobtainable) Family history: other (details unobtainable) Medications and Allergies Allergies Allergy/AdvReac Type Severity Reaction Status Date / Time Penicillins Allergy Angioedema Verified 01/01/18 13:03 shellfish derived Allergy Swelling Verified 01/01/18 13:03 Home Medications Medication Instructions Recorded Confirmed Last Taken Type Acetaminophen [Acetaminophen TAB] 650 mg PO Q6H PRN #30 tablet 10/16/18 03/25/19 Unknown Rx Melatonin [Melatonin 10MG TAB] 10 mg PO QHS #15 tablet 10/16/18 03/25/19 12/19/18 21:00 Rx 10 mg Topiramate [Topamax] 50 mg PO Q12HR #60 tablet 10/16/18 03/25/19 12/19/18 21:00 Rx 50 mg lamoTRIgine [LaMICtal] 300 mg PO BID #60 tablet 10/16/18 03/25/19 12/19/18 21:00 Rx raNITIdine HCl [Zantac] 150 mg PO BID #60 tablet 10/16/18 03/25/19 12/20/18 21:00 Rx 150 mg traZODone [Desyrel] 50 mg PO QPM #30 tablet 10/16/18 03/25/19 12/20/18 22:00 Rx 50 Lacosamide [Vimpat] 200 mg PO Q12HR #60 tablet 12/23/18 03/25/19 Unknown Rx Ondansetron [Zofran ORAL LIQ] 4 mg PO Q4H PRN 14 Days ml 12/23/18 03/25/19 Unknown Rx levETIRAcetam [Keppra] 1,500 mg PO BID #30 oral.liqd 12/23/18 03/25/19 Unknown Rx Active Meds: Active Medications Acetaminophen (Tylenol) 650 mg PO Q4H PRN PRN Reason: Pain MILD(1-3)/Fever >100.5/ALCARAZ Albuterol (Proventil) 2.5 mg IH Q4HRT PRN PRN Reason: Shortness Of Breath Albuterol/Ipratropium (Duoneb *Not For Prn Use*) 1 ampul IH QIDRT ON LICENSE OF [facility] Last Admin: 03/26/19 19:45 Dose: 1 ampul Documented by: Lipase/Protease/Amylase (Bri Sánchez 10,500 Unit) 1 each FEEDTUBE PRN PRN PRN Reason: For Clogged Feeding Tube Enoxaparin Sodium (Lovenox) 40 mg SUB-Q QDAY@2200 ON LICENSE OF [facility] Famotidine (Pepcid) 20 mg IV BID ON LICENSE OF [facility] Last Admin: 03/26/19 09:11 Dose: 20 mg Documented by: Hydromorphone HCl (Dilaudid) 0.5 mg IV Q3H PRN PRN Reason: Pain , Severe (7-10) Lorazepam 100 mg/ Sodium Chloride/ Miscellaneous Information 100 mls @ 1 mls/hr IV TITR ON LICENSE OF [facility]; Protocol Last Admin: 03/26/19 09:53 Dose: 4 mg/hr, 4 mls/hr Documented by: Fentanyl Citrate (Fentanyl Drip Premix) 2,000 mcg in 100 mls @ 5.5 mls/hr IV TITR ON LICENSE OF [facility]; Protocol Last Admin: 03/26/19 09:00 Dose: 1 mcg/kg/hr, 5.5 mls/hr Documented by: Sodium Chloride (Nacl 0.9% 1000 Ml) 1,000 mls @ 100 mls/hr IV DIRECT ON LICENSE OF [facility] Last Admin: 03/25/19 23:25 Dose: 100 mls/hr Documented by: Levetiracetam 1,000 mg/ (Dextrose) 110 mls @ 400 mls/hr IV Q12H ON LICENSE OF [facility] Last Infusion: 03/26/19 18:00 Dose: Infused Documented by: Cefepime HCl (Maxipime/Ns 2 Gm/100 Ml) 2 gm in 100 mls @ 200 mls/hr IV Q8HR ON LICENSE OF [facility]; Protocol Last Infusion: 03/26/19 14:30 Dose: Infused Documented by: Vancomycin HCl 1,750 mg/ (Sodium Chloride) 535 mls @ 333.333 mls/hr IV Q12H ON LICENSE OF [facility] Last Infusion: 03/26/19 12:40 Dose: Infused Documented by: Potassium Chloride (Kcl 10meq/100ml) 10 meq in 100 mls @ 100 mls/hr IV Q1H ON LICENSE OF [facility] Stop: 03/26/19 14:59 Methylprednisolone Sodium Succinate (Solu-Medrol) 40 mg IV Q8HR ON LICENSE OF [facility] Last Admin: 03/26/19 14:00 Dose: 40 mg Documented by: Metoclopramide HCl (Reglan) 10 mg IV Q6H PRN PRN Reason: Nausea And Vomiting Ondansetron HCl (Zofran) 4 mg IV Q3H PRN PRN Reason: Nausea And Vomiting Simple Syrup (Simple Syrup) 15 ml FEEDTUBE PRN PRN PRN Reason: Hypoglycemia Simple Syrup (Simple Syrup) 30 ml FEEDTUBE PRN PRN PRN Reason: Hypoglycemia Sodium Bicarbonate (Sodium Bicarbonate) 325 mg FEEDTUBE PRN PRN PRN Reason: For Clogged Feeding Tube Sodium Chloride (Sodium Chloride Flush Syringe 10 Ml) 10 ml IV BID SILVANA Last Admin: 03/26/19 09:11 Dose: 10 ml Documented by: Sodium Chloride (Sodium Chloride Flush Syringe 10 Ml) 10 ml IV PRN PRN PRN Reason: LINE FLUSH Review of Systems ROS unobtainable: due to endotracheal tube, due to mental status Physical Examination Vital signs: Vital Signs Pulse BP Pulse Ox 134 H 141/78 99 03/25/19 17:40 03/25/19 17:40 03/25/19 17:40 General appearance: other (intubated, sedated on vent) Eyes: non-icteric ENT: oropharynx moist Neck: supple Effort: normal Ascultation: Bilateral: other (coarse BS bilaterally) Cardiovascular: regular rate and rhythm (no mrg) Gastrointestinal: normoactive bowel sounds, soft, non-tender, non-distended Integumentary: normal Extremities: no cyanosis, no edema, pink and warm other (wakes up, moves all extremities and follows commands) anxious Results - Laboratory Findings CBC and BMP: 03/26/19 04:30 03/26/19 04:30 ABG POC ABG pH 7.277 (7.35-7.45) L 03/25/19 18:39 ABG pH 7.386 pH Units (7.350-7.450) 03/26/19 05:00 POC ABG pCO2 43.0 (35-45) 03/25/19 18:39 ABG pCO2 28.7 mm Hg 03/26/19 05:00 POC ABG pO2 378 (80-105) H 03/25/19 18:39 ABG pO2 134.8 mm Hg (80.0-90.0) H 03/26/19 05:00 POC ABG HCO3 20.1 (22-26 mml/L) 03/25/19 18:39 POC ABG Total CO2 21 (23-27mmol/L) 03/25/19 18:39 POC ABG O2 Sat 100 03/25/19 18:39 ABG O2 Saturation 98.6 % (95.0-99.0) 03/26/19 05:00 Abnormal lab findings: Abnormal Labs 03/25/19 03/25/19 03/25/19 17:56 17:56 17:56 WBC 16.4 H RDW 12.6 L Lymph % (Auto) 13.3 L Lymph # Seg Neutrophils % 80.8 H Seg Neutrophils # 13.3 H POC ABG pH POC ABG pO2 ABG pO2 ABG HCO3 ABG Base Excess ABG Hemoglobin VBG pH Potassium 3.3 L Chloride 108.6 H Carbon Dioxide 19 L Creatinine Glucose 182 H POC Glucose Lactic Acid 4.80 H* Calcium 8.3 L AST 41 H Troponin T 0.034 H LDL Cholesterol Direct 137 H Urine WBC (Auto) 03/25/19 03/25/19 03/25/19 18:04 18:13 18:39 WBC RDW Lymph % (Auto) Lymph # Seg Neutrophils % Seg Neutrophils # POC ABG pH 7.277 L POC ABG pO2 378 H ABG pO2 ABG HCO3 ABG Base Excess ABG Hemoglobin VBG pH 7.231 L Potassium Chloride Carbon Dioxide Creatinine Glucose POC Glucose Lactic Acid Calcium AST Troponin T LDL Cholesterol Direct Urine WBC (Auto) 8.0 H 03/25/19 03/25/19 03/25/19 19:36 20:29 22:54 WBC RDW Lymph % (Auto) Lymph # Seg Neutrophils % Seg Neutrophils # POC ABG pH POC ABG pO2 ABG pO2 ABG HCO3 ABG Base Excess ABG Hemoglobin VBG pH Potassium Chloride Carbon Dioxide Creatinine Glucose POC Glucose Lactic Acid 2.40 H* 2.30 H* Calcium AST Troponin T 0.077 H D LDL Cholesterol Direct Urine WBC (Auto) 03/25/19 03/26/19 03/26/19 22:54 04:30 04:30 WBC 14.1 H RDW 12.5 L Lymph % (Auto) 7.0 L Lymph # 1.0 L Seg Neutrophils % 89.4 H Seg Neutrophils # 12.6 H POC ABG pH POC ABG pO2 ABG pO2 ABG HCO3 ABG Base Excess ABG Hemoglobin VBG pH Potassium Chloride 111.1 H Carbon Dioxide 19 L Creatinine 0.7 L Glucose 140 H POC Glucose Lactic Acid 2.10 H* Calcium AST Troponin T LDL Cholesterol Direct Urine WBC (Auto) 03/26/19 03/26/19 05:00 16:24 WBC RDW Lymph % (Auto) Lymph # Seg Neutrophils % Seg Neutrophils # POC ABG pH POC ABG pO2 ABG pO2 134.8 H ABG HCO3 16.8 L ABG Base Excess -6.8 L ABG Hemoglobin 13.8 L VBG pH Potassium Chloride Carbon Dioxide Creatinine Glucose POC Glucose 119 H Lactic Acid Calcium AST Troponin T LDL Cholesterol Direct Urine WBC (Auto) - Diagnostic Findings Chest x-ray: report reviewed, image reviewed (no acute process) Assessment and Plan Imp: 1. Status epilepticus 2. Seizure d/o 3. Acute respiratory failure, hypoxia 4. S/p CP arrest 5. SIRS 6. MERRF Rec: 1. On Keppra; recommend consulting with neurology to see if he needs to be re- started on home AEDs of Lamictal, Vimpat, and Topamaz; he needs to come off of Ativan drip RAMA for ventilator weaning purposes; he is following commands so I do not believe he has sustained significant hypoxic encephalopathy 2. On Cefipime pending cultures 3. DVT/GI PPx 4. Further plans pending clinical course No family present; CCT 31 minutes
[2019-03-26] MEDS: ENOXAPARIN SUB-Q SCH (22:28)
[2019-03-27] MEDS: NACL 0.9% 1000 ML 1,000 ML IV SCH ×2 (01:47→15:00)
[2019-03-27] MEDS: fentaNYL DRIP Premix 2,000 MCG/100 ML BAG IV SCH ×2 (01:47→17:55)
--- NOTE | 2019-03-27 02:40 | XRay Report ---
CHEST 1 VIEW INDICATION / CLINICAL INFORMATION: f/u ,intubated. COMPARISON: 03/25/2019 FINDINGS: SUPPORT DEVICES: Stable, satisfactory device positioning. HEART / MEDIASTINUM: No significant abnormality. LUNGS / PLEURA: Bibasilar subsegmental atelectasis. No pneumothorax. ADDITIONAL FINDINGS: No significant additional findings. IMPRESSION: 1. Persistent atelectasis. Signer Name: Roque Culp MD Signed: 03/27/2019 2:36 AM Workstation Name: [id number]
[2019-03-27] MEDS: CEFEPIME/NS 2 GM/100 ML 2 GM/100 ML BAG IV SCH ×3 (05:34→22:28)
[2019-03-27 05:58] LABS: Basophils % (Auto) 0.2 % (0.0-1.8); Hematocrit 38.5 % (35.5-45.6); Lymphocytes # (Auto) 1.4 K/mm3 (1.2-5.4); Lymphocytes % (Auto) 7.1 % (13.4-35.0); Mean Corpuscular HGB Conc 34 % (32-34); Mean Corpuscular Volume 91 fl (84-94); Monocytes # (Auto) 1.1 K/mm3 (0.0-0.8); Monocytes % (Auto) 5.6 % (0.0-7.3); Platelet Count 328 K/mm3 (140-440); Red Blood Count 4.24 M/mm3 (3.65-5.03); Red Cell Distribution Width 12.9 % (13.2-15.2)
[2019-03-27 06:24] LABS: BUN/Creatinine Ratio 10; Blood Urea Nitrogen 6 mg/dL (9-20); Calcium 8.7 mg/dL (8.4-10.2); Hemolysis Index 8
[2019-03-27] MEDS: SOLU-Medrol IV SCH ×3 (06:47→22:29)
[2019-03-27] MEDS: KEPPRA 1,000 MG in D5W 100 ML IV SCH ×2 (06:48→17:03)
[2019-03-27] MEDS: DUONEB *Not for PRN Use IH SCH ×4 (07:41→19:39)
[2019-03-27] MEDS: ATIVAN 100 MG in NACL 0.9% 50 ML, VIAFLEX EMPTY CONTAINER 0 ML IV SCH (08:00)
--- NOTE | 2019-03-27 08:56 | Progress Note ---
Assessment and Plan 29-year-old male patient with significant past medical history of seizure disorder presented to the emergency room with postictal confusion and seizure, The patient had cardiac arrest status post CPR per ACLS protocol Patient had spontaneous return of circulation intubated and was admitted to ICU. 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 Afebrile Discussed with pt's nurse. No overnight event reported to me. Objective - Constitutional Vitals: Vital Signs - 12hr 03/26/19 03/26/19 03/26/19 21:00 22:01 23:00 Temperature Pulse Rate 111 H 75 102 H Pulse Rate [ Anterior Bilateral Throughout] Pulse Rate [ From Monitor] Respiratory 22 22 21 Rate Respiratory Rate [Anterior Bilateral Throughout] Blood Pressure 133/75 116/54 130/64 O2 Sat by Pulse 99 Oximetry 03/26/19 03/27/19 03/27/19 23:17 00:00 00:01 Temperature 97.5 F L Pulse Rate 101 H 85 Pulse Rate [ Anterior Bilateral Throughout] Pulse Rate [ From Monitor] Respiratory 23 Rate Respiratory Rate [Anterior Bilateral Throughout] Blood Pressure 130/64 134/60 O2 Sat by Pulse 98 100 Oximetry 03/27/19 03/27/19 03/27/19 00:27 00:29 01:01 Temperature Pulse Rate 89 76 Pulse Rate [ Anterior Bilateral Throughout] Pulse Rate [ 89 From Monitor] Respiratory 23 23 Rate Respiratory Rate [Anterior Bilateral Throughout] Blood Pressure 134/62 O2 Sat by Pulse 98 99 Oximetry 03/27/19 03/27/19 03/27/19 02:01 03:01 04:00 Temperature 98 F Pulse Rate 97 H 84 98 H Pulse Rate [ Anterior Bilateral Throughout] Pulse Rate [ 89 From Monitor] Respiratory 22 22 20 Rate Respiratory Rate [Anterior Bilateral Throughout] Blood Pressure 140/82 129/53 138/83 O2 Sat by Pulse 98 97 99 Oximetry 03/27/19 03/27/19 03/27/19 04:52 05:00 06:00 Temperature Pulse Rate 110 H 115 H 115 H Pulse Rate [ Anterior Bilateral Throughout] Pulse Rate [ From Monitor] Respiratory 20 22 Rate Respiratory Rate [Anterior Bilateral Throughout] Blood Pressure 138/83 136/82 140/75 O2 Sat by Pulse 98 97 98 Oximetry 03/27/19 03/27/19 03/27/19 07:00 07:42 07:46 Temperature Pulse Rate 112 H 98 H Pulse Rate [ 90 Anterior Bilateral Throughout] Pulse Rate [ From Monitor] Respiratory 21 Rate Respiratory 22 Rate [Anterior Bilateral Throughout] Blood Pressure 141/80 141/80 O2 Sat by Pulse 99 99 Oximetry General appearance: Present: no acute distress, well-nourished, other (intubated and vent supported) - EENT Eyes: PERRL, EOM intact Ears: bilateral: normal - Neck Neck: supple, normal ROM - Respiratory Respiratory effort: normal Respiratory: bilateral: CTA - Cardiovascular Rhythm: regular Heart Sounds: Present: S1 & S2. Absent: gallop, rub Extremities: pulses intact, No edema, normal color, Full ROM - Gastrointestinal General gastrointestinal: Present: soft, non-tender, non-distended, normal bowel sounds - Integumentary Integumentary: clear, warm, dry - Musculoskeletal Musculoskeletal: other (intubated and sedated) - Neurologic Neurologic: other (inatuvbated) - Labs CBC & Chem 7: 03/27/19 05:00 03/27/19 05:00 Labs: Abnormal lab results 03/26/19 03/27/19 03/27/19 Range/Units 16:24 05:00 05:00 WBC 19.1 H (4.5-11.0) K/mm3 RDW 12.9 L (13.2-15.2) % Lymph % (Auto) 7.1 L (13.4-35.0) % [place] # 1.1 H (0.0-0.8) K/mm3 Seg Neutrophils % 87.1 H (40.0-70.0) % Seg Neutrophils # 16.6 H (1.8-7.7) K/mm3 POC ABG pCO2 (35-45) Chloride 110.0 H (98-107) mmol/L Carbon Dioxide 19 L (22-30) mmol/L BUN 6 L (9-20) mg/dL Creatinine 0.6 L (0.8-1.5) mg/dL Glucose 135 H (75-100) mg/dL POC Glucose 119 H (70-105) Magnesium 1.50 L (1.7-2.3) mg/dL 03/27/19 Range/Units 05:47 WBC (4.5-11.0) K/mm3 RDW (13.2-15.2) % Lymph % (Auto) (13.4-35.0) % [place] # (0.0-0.8) K/mm3 Seg Neutrophils % (40.0-70.0) % Seg Neutrophils # (1.8-7.7) K/mm3 POC ABG pCO2 31.7 L (35-45) Chloride (98-107) mmol/L Carbon Dioxide (22-30) mmol/L BUN (9-20) mg/dL Creatinine (0.8-1.5) mg/dL Glucose (75-100) mg/dL POC Glucose (70-105) Magnesium (1.7-2.3) mg/dL
[2019-03-27] MEDS: PEPCID IV SCH ×2 (09:15→22:29)
[2019-03-27] MEDS: SODIUM CHLORIDE FLUSH SYRINGE 10 ML IV SCH ×2 (09:15→22:39)
[2019-03-27] MEDS: VANCOMYCIN 1,750 MG in NACL 0.9% 500 ML 500 ML IV SCH ×2 (11:00→23:00)
--- NOTE | 2019-03-27 11:41 | Consultation ---
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; cardiac arrest; Echo 02/01 EF: 55-60%.) Past Surgical History: Other (VNS) Social history: other (details unobtainable) Family history: other (details unobtainable) Medications and Allergies Allergies Allergy/AdvReac Type Severity Reaction Status Date / Time Penicillins Allergy Angioedema Verified 01/01/18 13:03 shellfish derived Allergy Swelling Verified 01/01/18 13:03 Home Medications Medication Instructions Recorded Confirmed Last Taken Type Acetaminophen [Acetaminophen TAB] 650 mg PO Q6H PRN #30 tablet 10/16/18 03/25/19 Unknown Rx Melatonin [Melatonin 10MG TAB] 10 mg PO QHS #15 tablet 10/16/18 03/25/19 12/19/18 21:00 Rx 10 mg Topiramate [Topamax] 50 mg PO Q12HR #60 tablet 10/16/18 03/25/19 12/19/18 21:00 Rx 50 mg lamoTRIgine [LaMICtal] 300 mg PO BID #60 tablet 10/16/18 03/25/19 12/19/18 21:00 Rx raNITIdine HCl [Zantac] 150 mg PO BID #60 tablet 10/16/18 03/25/19 12/20/18 21:00 Rx 150 mg traZODone [Desyrel] 50 mg PO QPM #30 tablet 10/16/18 03/25/19 12/20/18 22:00 Rx 50 Lacosamide [Vimpat] 200 mg PO Q12HR #60 tablet 12/23/18 03/25/19 Unknown Rx Ondansetron [Zofran ORAL LIQ] 4 mg PO Q4H PRN 14 Days ml 12/23/18 03/25/19 Unknown Rx levETIRAcetam [Keppra] 1,500 mg PO BID #30 oral.liqd 12/23/18 03/25/19 Unknown Rx Active Meds: Active Medications Acetaminophen (Tylenol) 650 mg PO Q4H PRN PRN Reason: Pain MILD(1-3)/Fever >100.5/ALCARAZ Albuterol (Proventil) 2.5 mg IH Q4HRT PRN PRN Reason: Shortness Of Breath Albuterol/Ipratropium (Duoneb *Not For Prn Use*) 1 ampul IH QIDRT [facility] Last Admin: 03/27/19 07:41 Dose: 1 ampul Documented by: Lipase/Protease/Amylase (Bri Sánchez 10,500 Unit) 1 each FEEDTUBE PRN PRN PRN Reason: For Clogged Feeding Tube Enoxaparin Sodium (Lovenox) 40 mg SUB-Q QDAY@2200 [facility] Last Admin: 03/26/19 22:28 Dose: 40 mg Documented by: Famotidine (Pepcid) 20 mg IV BID [facility] Last Admin: 03/27/19 09:15 Dose: 20 mg Documented by: Hydromorphone HCl (Dilaudid) 0.5 mg IV Q3H PRN PRN Reason: Pain , Severe (7-10) Lorazepam 100 mg/ Sodium Chloride/ Miscellaneous Information 100 mls @ 1 mls/hr IV TITR [facility]; Protocol Last Admin: 03/27/19 08:00 Dose: 4 mg/hr, 4 mls/hr Documented by: Fentanyl Citrate (Fentanyl Drip Premix) 2,000 mcg in 100 mls @ 5.5 mls/hr IV TITR [facility]; Protocol Last Admin: 03/27/19 01:47 Dose: 1 mcg/kg/hr, 5.5 mls/hr Documented by: Sodium Chloride (Nacl 0.9% 1000 Ml) 1,000 mls @ 100 mls/hr IV DIRECT [facility] Last Admin: 03/27/19 01:47 Dose: 100 mls/hr Documented by: Levetiracetam 1,000 mg/ (Dextrose) 110 mls @ 400 mls/hr IV Q12H [facility] Last Infusion: 03/27/19 07:05 Dose: Infused Documented by: Cefepime HCl (Maxipime/Ns 2 Gm/100 Ml) 2 gm in 100 mls @ 200 mls/hr IV Q8HR [facility]; Protocol Last Infusion: 03/27/19 06:05 Dose: Infused Documented by: Vancomycin HCl 1,750 mg/ (Sodium Chloride) 535 mls @ 333.333 mls/hr IV Q12H [facility] Last Admin: 03/27/19 11:00 Dose: 333.333 mls/hr Documented by: Potassium Chloride (Kcl 10meq/100ml) 10 meq in 100 mls @ 100 mls/hr IV Q1H [facility] Stop: 03/26/19 14:59 Methylprednisolone Sodium Succinate (Solu-Medrol) 40 mg IV Q8HR [facility] Last Admin: 03/27/19 06:47 Dose: 40 mg Documented by: Metoclopramide HCl (Reglan) 10 mg IV Q6H PRN PRN Reason: Nausea And Vomiting Ondansetron HCl (Zofran) 4 mg IV Q3H PRN PRN Reason: Nausea And Vomiting Simple Syrup (Simple Syrup) 15 ml FEEDTUBE PRN PRN PRN Reason: Hypoglycemia Simple Syrup (Simple Syrup) 30 ml FEEDTUBE PRN PRN PRN Reason: Hypoglycemia Sodium Bicarbonate (Sodium Bicarbonate) 325 mg FEEDTUBE PRN PRN PRN Reason: For Clogged Feeding Tube Sodium Chloride (Sodium Chloride Flush Syringe 10 Ml) 10 ml IV BID [facility] Last Admin: 03/27/19 09:15 Dose: 10 ml Documented by: Sodium Chloride (Sodium Chloride Flush Syringe 10 Ml) 10 ml IV PRN PRN PRN Reason: LINE FLUSH Last Admin: 03/26/19 22:28 Dose: 10 ml Documented by: Physical Examination - Vital Signs Vital Signs: Vital Signs Pulse BP Pulse Ox 134 H 141/78 99 03/25/19 17:40 03/25/19 17:40 03/25/19 17:40 Results - Laboratory Findings CBC and BMP: 03/27/19 05:00 03/27/19 05:00 Abnormal Lab Findings: Abnormal Labs 03/25/19 03/25/19 03/25/19 17:56 17:56 17:56 WBC 16.4 H RDW 12.6 L Lymph % (Auto) 13.3 L Lymph # [place] # Seg Neutrophils % 80.8 H Seg Neutrophils # 13.3 H POC ABG pH POC ABG pCO2 POC ABG pO2 ABG pO2 ABG HCO3 ABG Base Excess ABG Hemoglobin VBG pH Potassium 3.3 L Chloride 108.6 H Carbon Dioxide 19 L BUN Creatinine Glucose 182 H POC Glucose Lactic Acid 4.80 H* Calcium 8.3 L Magnesium AST 41 H Troponin T 0.034 H LDL Cholesterol Direct 137 H Urine WBC (Auto) 03/25/19 03/25/19 03/25/19 18:04 18:13 18:39 WBC RDW Lymph % (Auto) Lymph # [place] # Seg Neutrophils % Seg Neutrophils # POC ABG pH 7.277 L POC ABG pCO2 POC ABG pO2 378 H ABG pO2 ABG HCO3 ABG Base Excess ABG Hemoglobin VBG pH 7.231 L Potassium Chloride Carbon Dioxide BUN Creatinine Glucose POC Glucose Lactic Acid Calcium Magnesium AST Troponin T LDL Cholesterol Direct Urine WBC (Auto) 8.0 H 03/25/19 03/25/19 03/25/19 19:36 20:29 22:54 WBC RDW Lymph % (Auto) Lymph # [place] # Seg Neutrophils % Seg Neutrophils # POC ABG pH POC ABG pCO2 POC ABG pO2 ABG pO2 ABG HCO3 ABG Base Excess ABG Hemoglobin VBG pH Potassium Chloride Carbon Dioxide BUN Creatinine Glucose POC Glucose Lactic Acid 2.40 H* 2.30 H* Calcium Magnesium AST Troponin T 0.077 H D LDL Cholesterol Direct Urine WBC (Auto) 03/25/19 03/26/19 03/26/19 22:54 04:30 04:30 WBC 14.1 H RDW 12.5 L Lymph % (Auto) 7.0 L Lymph # 1.0 L [place] # Seg Neutrophils % 89.4 H Seg Neutrophils # 12.6 H POC ABG pH POC ABG pCO2 POC ABG pO2 ABG pO2 ABG HCO3 ABG Base Excess ABG Hemoglobin VBG pH Potassium Chloride 111.1 H Carbon Dioxide 19 L BUN Creatinine 0.7 L Glucose 140 H POC Glucose Lactic Acid 2.10 H* Calcium Magnesium AST Troponin T LDL Cholesterol Direct Urine WBC (Auto) 03/26/19 03/26/19 03/27/19 05:00 16:24 05:00 WBC 19.1 H RDW 12.9 L Lymph % (Auto) 7.1 L Lymph # [place] # 1.1 H Seg Neutrophils % 87.1 H Seg Neutrophils # 16.6 H POC ABG pH POC ABG pCO2 POC ABG pO2 ABG pO2 134.8 H ABG HCO3 16.8 L ABG Base Excess -6.8 L ABG Hemoglobin 13.8 L VBG pH Potassium Chloride Carbon Dioxide BUN Creatinine Glucose POC Glucose 119 H Lactic Acid Calcium Magnesium AST Troponin T LDL Cholesterol Direct Urine WBC (Auto) 03/27/19 03/27/19 05:00 05:47 WBC RDW Lymph % (Auto) Lymph # [place] # Seg Neutrophils % Seg Neutrophils # POC ABG pH POC ABG pCO2 31.7 L POC ABG pO2 ABG pO2 ABG HCO3 ABG Base Excess ABG Hemoglobin VBG pH Potassium Chloride 110.0 H Carbon Dioxide 19 L BUN 6 L Creatinine 0.6 L Glucose 135 H POC Glucose Lactic Acid Calcium Magnesium 1.50 L AST Troponin T LDL Cholesterol Direct Urine WBC (Auto)
--- NOTE | 2019-03-27 12:52 | Progress Note ---
Assessment and Plan Will add small dose of beta marissa. 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 In sinus rhythm on the monitor. Objective Vital Signs Temp Pulse Pulse Pulse Resp Resp BP 03/27/19 11:29 80 139/72 03/27/19 11:00 75 22 139/72 03/27/19 10:00 84 20 134/80 03/27/19 09:00 101 H 22 134/80 03/27/19 08:00 98.7 F 91 H 95 H 17 128/73 03/27/19 07:46 90 22 03/27/19 07:42 98 H 141/80 03/27/19 07:00 112 H 21 141/80 03/27/19 06:00 115 H 22 140/75 03/27/19 05:00 115 H 20 136/82 03/27/19 04:52 110 H 138/83 03/27/19 04:00 98 F 98 H 89 20 138/83 03/27/19 03:01 84 22 129/53 03/27/19 02:01 97 H 22 140/82 03/27/19 01:01 76 23 134/62 03/27/19 00:29 89 03/27/19 00:27 89 23 03/27/19 00:01 85 23 134/60 03/27/19 00:00 97.5 F L 03/26/19 23:17 101 H 130/64 03/26/19 23:00 102 H 21 130/64 03/26/19 22:01 75 22 116/54 03/26/19 21:00 111 H 22 133/75 03/26/19 20:43 93 H 03/26/19 20:40 93 H 21 03/26/19 20:39 88 22 134/69 03/26/19 20:04 86 22 03/26/19 20:00 98.9 F 109 H 24 134/69 03/26/19 19:42 98 H 122/57 03/26/19 19:00 79 18 122/57 03/26/19 18:11 93 H 19 135/72 03/26/19 18:00 96 H 23 124/65 03/26/19 17:50 127 H 16 135/72 03/26/19 17:40 101 H 15 127/69 03/26/19 17:30 122 H 20 127/69 03/26/19 17:20 104 H 21 127/69 03/26/19 17:10 110 H 14 127/69 03/26/19 17:04 98.0 F 03/26/19 17:00 112 H 17 127/69 03/26/19 16:50 106 H 21 127/69 03/26/19 16:40 123 H 22 127/69 03/26/19 16:30 118 H 21 127/69 03/26/19 16:20 104 H 19 127/69 03/26/19 16:10 109 H 15 127/69 03/26/19 16:00 102 H 126 H 20 127/69 03/26/19 15:50 75 19 115/57 03/26/19 15:40 63 19 115/57 03/26/19 15:30 66 18 115/57 03/26/19 15:20 66 23 115/57 03/26/19 15:18 102 H 108 H 24 127/69 03/26/19 15:10 66 19 115/57 03/26/19 15:00 66 17 115/57 03/26/19 14:50 66 18 113/56 03/26/19 14:40 64 22 113/56 03/26/19 14:30 68 22 113/56 03/26/19 14:20 66 19 113/56 03/26/19 14:10 67 21 113/56 03/26/19 14:00 68 15 113/56 03/26/19 13:50 70 22 115/54 03/26/19 13:40 68 20 115/54 03/26/19 13:30 69 20 115/54 03/26/19 13:20 67 20 115/54 03/26/19 13:10 69 13 115/54 03/26/19 13:00 67 22 115/54 03/26/19 12:50 71 22 124/65 Last Vital Signs Temp 98.7 F 03/27/19 08:00 Pulse 80 03/27/19 11:29 Resp 22 03/27/19 11:00 BP 139/72 03/27/19 11:29 Pulse Ox 100 03/27/19 11:29 - Physical Examination General: No Apparent Distress, Other (intubated) HEENT: Positive: Normocephaly, Mucus Membranes Moist Neck: Positive: neck supple, trachea midline Cardiac: Positive: Reg Rate and Rhythm, S1/S2 Lungs: Positive: Rhonchi Neuro: Positive: Other (sedated, but arousable) Abdomen: Positive: Soft, Active Bowel Sounds Skin: Positive: Clear. Negative: Rash Musculoskeletal: Normal Range of Motion Extremities: Present: normal. Absent: edema - Labs and Meds CBC 03/27/19 Range/Units 05:00 WBC 19.1 H (4.5-11.0) K/mm3 RBC 4.24 (3.65-5.03) M/mm3 Hgb 13.0 (11.8-15.2) gm/dl Hct 38.5 (35.5-45.6) % Plt Count 328 (140-440) K/mm3 Lymph # 1.4 (1.2-5.4) K/mm3 [place] # 1.1 H (0.0-0.8) K/mm3 Eos # 0.0 (0.0-0.4) K/mm3 Baso # 0.0 (0.0-0.1) K/mm3 Comprehensive Metabolic Panel 03/27/19 Range/Units 05:00 Sodium 141 (137-145) mmol/L Potassium 3.7 (3.6-5.0) mmol/L Chloride 110.0 H (98-107) mmol/L Carbon Dioxide 19 L (22-30) mmol/L BUN 6 L (9-20) mg/dL Creatinine 0.6 L (0.8-1.5) mg/dL Glucose 135 H (75-100) mg/dL Calcium 8.7 (8.4-10.2) mg/dL - Imaging and Cardiology EKG: image reviewed - Telemetry EKG Rhythm: Sinus Rhythm - EKG Sinus rhythms and dysrhythmias: sinus tachycardia AV and intraventricular conduction: right bundle branch block Chamber hypertrophy or enlargement: left ventricular hypertro
[2019-03-27] MEDS: METOPROLOL PO SCH ×2 (13:26→22:29)
[2019-03-27] MEDS: ENOXAPARIN SUB-Q SCH (22:28)
[2019-03-27] MEDS: DESYREL PO SCH (22:28)
[2019-03-27] MEDS: LaMICtal PO SCH (22:28)
[2019-03-27] MEDS: TOPAMAX PO SCH (22:29)
[2019-03-27] MEDS: VIMPAT PO SCH (22:29)
[2019-03-27] MEDS: ATIVAN PO SCH (22:35)
--- NOTE | 2019-03-27 23:42 | Progress Note ---
Assessment and Plan Imp: 1. Status epilepticus 2. Seizure d/o 3. Acute respiratory failure, hypoxia 4. S/p CP arrest 5. SIRS 6. MERRF Rec: 1. Had a long discussion with mother by phone and clarified his home regimen which will be restarted: Trazodone 50mg QHS, Keppra 1500mg BID, Vimpat 200mg BID, Lamictal 300mg BID, Ativan PO 1mg QID, Klonopin 1mg BID, Topamax 50mg BID, Baclofen 5mg TID 2. Resume home regimen per above, then wean off Ativan drip, then SBT and hopeful extubation 3. D/c Steroids 4. D/c ABX in AM if cultures remain negative 5. TFs 6. DVT/GI PPx 7. Family considering both DNR status and SNF placement long-term CCT 31 minutes Subjective Date of service: 03/27/19 Principal diagnosis: C-P arrest, Acute resp failure, status epilepticus, MERRF Interval history: No events. On Ativan drip and Fent drip. Arouses and follows commands. On TFs. Active Medications Acetaminophen (Tylenol) 650 mg PO Q4H PRN PRN Reason: Pain MILD(1-3)/Fever >100.5/ALCARAZ Albuterol (Proventil) 2.5 mg IH Q4HRT PRN PRN Reason: Shortness Of Breath Albuterol/Ipratropium (Duoneb *Not For Prn Use*) 1 ampul IH QIDRT [facility] Last Admin: 03/27/19 19:39 Dose: 1 ampul Documented by: Lipase/Protease/Amylase (Bri Sánchez 10,500 Unit) 1 each FEEDTUBE PRN PRN PRN Reason: For Clogged Feeding Tube Clonazepam (Klonopin) 1 mg PO BID [facility] Last Admin: 03/27/19 22:30 Dose: 1 mg Documented by: Enoxaparin Sodium (Lovenox) 40 mg SUB-Q QDAY@2200 [facility] Last Admin: 03/27/19 22:28 Dose: 40 mg Documented by: Famotidine (Pepcid) 20 mg IV BID [facility] Last Admin: 03/27/19 22:29 Dose: 20 mg Documented by: Hydromorphone HCl (Dilaudid) 0.5 mg IV Q3H PRN PRN Reason: Pain , Severe (7-10) Lorazepam 100 mg/ Sodium Chloride/ Miscellaneous Information 100 mls @ 1 mls/hr IV TITR [facility]; Protocol Last Admin: 03/27/19 08:00 Dose: 4 mg/hr, 4 mls/hr Documented by: Fentanyl Citrate (Fentanyl Drip Premix) 2,000 mcg in 100 mls @ 5.5 mls/hr IV TITR [facility]; Protocol Last Admin: 03/27/19 17:55 Dose: 1 mcg/kg/hr, 5.5 mls/hr Documented by: Sodium Chloride (Nacl 0.9% 1000 Ml) 1,000 mls @ 100 mls/hr IV DIRECT [facility] Last Admin: 03/27/19 15:00 Dose: 100 mls/hr Documented by: Cefepime HCl (Maxipime/Ns 2 Gm/100 Ml) 2 gm in 100 mls @ 200 mls/hr IV Q8HR [facility] ; Protocol Last Admin: 03/27/19 22:28 Dose: 200 mls/hr Documented by: Vancomycin HCl 1,750 mg/ (Sodium Chloride) 535 mls @ 333.333 mls/hr IV Q12H [facility] Last Admin: 03/27/19 23:00 Dose: 333.333 mls/hr Documented by: Levetiracetam 1,500 mg/ (Dextrose) 115 mls @ 400 mls/hr IV Q12H [facility] Lacosamide (Vimpat) 200 mg PO Q12HR [facility] Last Admin: 03/27/19 22:29 Dose: 200 mg Documented by: Lamotrigine (Lamictal) 300 mg PO BID [facility] Last Admin: 03/27/19 22:28 Dose: 300 mg Documented by: Lorazepam (Ativan) 1 mg PO QID [facility] Last Admin: 03/27/19 22:35 Dose: Not Given Documented by: Methylprednisolone Sodium Succinate (Solu-Medrol) 40 mg IV Q8HR [facility] Last Admin: 03/27/19 22:29 Dose: 40 mg Documented by: Metoclopramide HCl (Reglan) 10 mg IV Q6H PRN PRN Reason: Nausea And Vomiting Metoprolol Tartrate (Lopressor) 12.5 mg PO BID [facility] Last Admin: 03/27/19 22:29 Dose: 12.5 mg Documented by: Ondansetron HCl (Zofran) 4 mg IV Q3H PRN PRN Reason: Nausea And Vomiting Simple Syrup (Simple Syrup) 15 ml FEEDTUBE PRN PRN PRN Reason: Hypoglycemia Simple Syrup (Simple Syrup) 30 ml FEEDTUBE PRN PRN PRN Reason: Hypoglycemia Sodium Bicarbonate (Sodium Bicarbonate) 325 mg FEEDTUBE PRN PRN PRN Reason: For Clogged Feeding Tube Sodium Chloride (Sodium Chloride Flush Syringe 10 Ml) 10 ml IV BID [facility] Last Admin: 03/27/19 22:39 Dose: 10 ml Documented by: Sodium Chloride (Sodium Chloride Flush Syringe 10 Ml) 10 ml IV PRN PRN PRN Reason: LINE FLUSH Last Admin: 03/26/19 22:28 Dose: 10 ml Documented by: Topiramate (Topamax) 50 mg PO Q12HR [facility] Last Admin: 03/27/19 22:29 Dose: 50 mg Documented by: Trazodone HCl (Desyrel) 50 mg PO QPM [facility] Last Admin: 03/27/19 22:28 Dose: 50 mg Documented by: Objective Vital Signs - 12hr 03/27/19 03/27/19 03/27/19 12:00 13:00 13:26 Temperature 99 F Pulse Rate 84 74 85 Pulse Rate [ Anterior Bilateral Throughout] Pulse Rate [ 76 From Monitor] Respiratory 20 22 Rate Respiratory Rate [Anterior Bilateral Throughout] Blood Pressure 152/85 130/81 130/81 O2 Sat by Pulse 100 100 Oximetry 03/27/19 03/27/19 03/27/19 14:00 15:00 16:00 Temperature 98.9 F Pulse Rate 100 H 71 84 Pulse Rate [ Anterior Bilateral Throughout] Pulse Rate [ 75 From Monitor] Respiratory 14 22 22 Rate Respiratory Rate [Anterior Bilateral Throughout] Blood Pressure 135/82 134/75 142/78 O2 Sat by Pulse 99 98 98 Oximetry 03/27/19 03/27/19 03/27/19 17:00 18:00 19:00 Temperature Pulse Rate 69 74 75 Pulse Rate [ Anterior Bilateral Throughout] Pulse Rate [ From Monitor] Respiratory 18 15 21 Rate Respiratory Rate [Anterior Bilateral Throughout] Blood Pressure 132/69 132/69 120/62 O2 Sat by Pulse 98 98 99 Oximetry 03/27/19 03/27/19 03/27/19 19:36 19:42 19:50 Temperature 98.9 F Pulse Rate 63 Pulse Rate [ 77 Anterior Bilateral Throughout] Pulse Rate [ From Monitor] Respiratory Rate Respiratory 22 Rate [Anterior Bilateral Throughout] Blood Pressure 138/66 O2 Sat by Pulse 98 Oximetry 03/27/19 03/27/19 03/27/19 20:00 21:00 22:00 Temperature Pulse Rate 71 73 59 L Pulse Rate [ Anterior Bilateral Throughout] Pulse Rate [ From Monitor] Respiratory 18 19 19 Rate Respiratory Rate [Anterior Bilateral Throughout] Blood Pressure 131/61 134/75 132/68 O2 Sat by Pulse 98 99 99 Oximetry 03/27/19 03/27/19 03/27/19 22:29 23:00 23:01 Temperature Pulse Rate 62 79 97 H Pulse Rate [ Anterior Bilateral Throughout] Pulse Rate [ From Monitor] Respiratory 20 Rate Respiratory Rate [Anterior Bilateral Throughout] Blood Pressure 132/68 139/68 139/68 O2 Sat by Pulse 100 100 Oximetry 03/27/19 23:36 Temperature 99.2 F Pulse Rate Pulse Rate [ Anterior Bilateral Throughout] Pulse Rate [ From Monitor] Respiratory Rate Respiratory Rate [Anterior Bilateral Throughout] Blood Pressure O2 Sat by Pulse Oximetry Constitutional: other (intubated, sedated, critically ill on vent) Eyes: non-icteric ENT: oropharynx moist Neck: supple Effort: normal Ascultation: Bilateral: other (coarse BS bilaterally) Cardiovascular: regular rate and rhythm (no mrg) Gastrointestinal: normoactive bowel sounds, soft, non-tender, non-distended Integumentary: normal Extremities: no cyanosis, no edema, pink and warm Neurologic: other (wakes up, moves all extremities and follows commands) Psychiatric: anxious CBC and BMP: 03/27/19 05:00 03/27/19 05:00 ABG, PT/INR, D-dimer: ABG POC ABG pH 7.390 (7.35-7.45) 03/27/19 05:47 ABG pH 7.386 pH Units (7.350-7.450) 03/26/19 05:00 POC ABG pCO2 31.7 (35-45) L 03/27/19 05:47 ABG pCO2 28.7 mm Hg 03/26/19 05:00 POC ABG pO2 93 (80-105) 03/27/19 05:47 ABG pO2 134.8 mm Hg (80.0-90.0) H 03/26/19 05:00 POC ABG HCO3 19.2 (22-26 mml/L) 03/27/19 05:47 POC ABG Total CO2 20 (23-27mmol/L) 03/27/19 05:47 POC ABG O2 Sat 97 03/27/19 05:47 ABG O2 Saturation 98.6 % (95.0-99.0) 03/26/19 05:00 Abnormal lab findings: Abnormal Labs 03/25/19 03/25/19 03/25/19 17:56 17:56 17:56 WBC 16.4 H RDW 12.6 L Lymph % (Auto) 13.3 L Lymph # [place] # Seg Neutrophils % 80.8 H Seg Neutrophils # 13.3 H POC ABG pH POC ABG pCO2 POC ABG pO2 ABG pO2 ABG HCO3 ABG Base Excess ABG Hemoglobin VBG pH Potassium 3.3 L Chloride 108.6 H Carbon Dioxide 19 L BUN Creatinine Glucose 182 H POC Glucose Lactic Acid 4.80 H* Calcium 8.3 L Magnesium AST 41 H Troponin T 0.034 H LDL Cholesterol Direct 137 H Urine WBC (Auto) 03/25/19 03/25/19 03/25/19 18:04 18:13 18:39 WBC RDW Lymph % (Auto) Lymph # Moody # Seg Neutrophils % Seg Neutrophils # POC ABG pH 7.277 L POC ABG pCO2 POC ABG pO2 378 H ABG pO2 ABG HCO3 ABG Base Excess ABG Hemoglobin VBG pH 7.231 L Potassium Chloride Carbon Dioxide BUN Creatinine Glucose POC Glucose Lactic Acid Calcium Magnesium AST Troponin T LDL Cholesterol Direct Urine WBC (Auto) 8.0 H 03/25/19 03/25/19 03/25/19 19:36 20:29 22:54 WBC RDW Lymph % (Auto) Lymph # Moody # Seg Neutrophils % Seg Neutrophils # POC ABG pH POC ABG pCO2 POC ABG pO2 ABG pO2 ABG HCO3 ABG Base Excess ABG Hemoglobin VBG pH Potassium Chloride Carbon Dioxide BUN Creatinine Glucose POC Glucose Lactic Acid 2.40 H* 2.30 H* Calcium Magnesium AST Troponin T 0.077 H D LDL Cholesterol Direct Urine WBC (Auto) 03/25/19 03/26/19 03/26/19 22:54 04:30 04:30 WBC 14.1 H RDW 12.5 L Lymph % (Auto) 7.0 L Lymph # 1.0 L [place] # Seg Neutrophils % 89.4 H Seg Neutrophils # 12.6 H POC ABG pH POC ABG pCO2 POC ABG pO2 ABG pO2 ABG HCO3 ABG Base Excess ABG Hemoglobin VBG pH Potassium Chloride 111.1 H Carbon Dioxide 19 L BUN Creatinine 0.7 L Glucose 140 H POC Glucose Lactic Acid 2.10 H* Calcium Magnesium AST Troponin T LDL Cholesterol Direct Urine WBC (Auto) 03/26/19 03/26/19 03/26/19 05:00 12:29 16:24 WBC RDW Lymph % (Auto) Lymph # Moody # Seg Neutrophils % Seg Neutrophils # POC ABG pH POC ABG pCO2 POC ABG pO2 ABG pO2 134.8 H ABG HCO3 16.8 L ABG Base Excess -6.8 L ABG Hemoglobin 13.8 L VBG pH Potassium Chloride Carbon Dioxide BUN Creatinine Glucose POC Glucose 142 H 119 H Lactic Acid Calcium Magnesium AST Troponin T LDL Cholesterol Direct Urine WBC (Auto) 03/27/19 03/27/19 03/27/19 05:00 05:00 05:47 WBC 19.1 H RDW 12.9 L Lymph % (Auto) 7.1 L Lymph # Moody # 1.1 H Seg Neutrophils % 87.1 H Seg Neutrophils # 16.6 H POC ABG pH POC ABG pCO2 31.7 L POC ABG pO2 ABG pO2 ABG HCO3 ABG Base Excess ABG Hemoglobin VBG pH Potassium Chloride 110.0 H Carbon Dioxide 19 L BUN 6 L Creatinine 0.6 L Glucose 135 H POC Glucose Lactic Acid Calcium Magnesium 1.50 L AST Troponin T LDL Cholesterol Direct Urine WBC (Auto) 03/27/19 03/27/19 10:03 12:08 WBC RDW Lymph % (Auto) Lymph # [place] # Seg Neutrophils % Seg Neutrophils # POC ABG pH POC ABG pCO2 POC ABG pO2 ABG pO2 ABG HCO3 ABG Base Excess ABG Hemoglobin VBG pH Potassium Chloride Carbon Dioxide BUN Creatinine Glucose POC Glucose 136 H Lactic Acid Calcium Magnesium AST Troponin T 0.040 H D LDL Cholesterol Direct Urine WBC (Auto) Chest x-ray: report reviewed, image reviewed
[2019-03-28] MEDS: NACL 0.9% 1000 ML 1,000 ML IV SCH ×2 (01:00→16:41)
[2019-03-28 04:28] LABS: Basophils % (Auto) 0.2 % (0.0-1.8); Eosinophils % (Auto) 0.1 % (0.0-4.3); Hematocrit 41.7 % (35.5-45.6); Lymphocytes # (Auto) 1.5 K/mm3 (1.2-5.4); Lymphocytes % (Auto) 10.2 % (13.4-35.0); Mean Corpuscular HGB Conc 34 % (32-34); Mean Corpuscular Volume 93 fl (84-94); Monocytes % (Auto) 7.1 % (0.0-7.3); Platelet Count 299 K/mm3 (140-440); Red Blood Count 4.48 M/mm3 (3.65-5.03); Red Cell Distribution Width 12.7 % (13.2-15.2)
[2019-03-28] MEDS: ATIVAN 100 MG in NACL 0.9% 50 ML, VIAFLEX EMPTY CONTAINER 0 ML IV SCH (04:39)
[2019-03-28 04:52] LABS: Alanine Aminotransferase 97 units/L (7-56); BUN/Creatinine Ratio 15; Blood Urea Nitrogen 9 mg/dL (9-20); Calcium 8.9 mg/dL (8.4-10.2); Hemolysis Index 19
[2019-03-28] MEDS: CEFEPIME/NS 2 GM/100 ML 2 GM/100 ML BAG IV SCH ×2 (05:56→14:00)
[2019-03-28] MEDS: KEPPRA 1,500 MG in D5W 100 ML IV SCH ×2 (05:56→17:53)
[2019-03-28] MEDS: DUONEB *Not for PRN Use IH SCH ×4 (07:39→19:28)
--- NOTE | 2019-03-28 08:03 | Progress Note ---
Assessment and Plan 29-year-old male patient with significant past medical history of seizure disorder presented to the emergency room with postictal confusion and seizure, The patient had cardiac arrest prior to arrival to the hospital status post CPR with ROSC Patient had spontaneous return of circulation intubated and was admitted to ICU. -Status epilepticus; Continue with seizure precautions, and antiepileptic medications Neurology following -Cardiac arrest; status post CPR Continue supportive care, cardiology evaluated -Acute hypoxemic respiratory failure, intubated and on MV for 96 hr Continue mechanical ventilation, pulmonary critical following Wean as tolerated and extubate -Sepsis, possible aspiration pneumonia; Patient has leukocytosis and lactic acidosis bilateral atelectasis Continue empiric antibiotics follow cultures, pulmonary following BNlood and sputum Cx yielded no growth ID evaluation -Vagus nerve stimulator: in place -Possible anoxic encephalopathy; supportive care - Transaminasemia: Possible from shocked liver Trend. -DVT prophylaxis;Lovenox Monitor closely and adjust the management as needed Follow-up consults and recommendations Critical care time 33 minutes Subjective Date of service: 03/28/19 Principal diagnosis: C-P arrest, Acute resp failure, status epilepticus, MERRF Interval history: Remains intubated and on MV for 96 hrs No more seizure activity noted. Afebrile Discussed with pt's nurse. No overnight event reported to me. Objective - Exam Narrative Exam: Constitutional: Well-nourished well-developed. Intubated on a MVS for 96 hours Head: Normocephalic atraumatic Eyes: Pupils are equal round and reactive to light Nose: No enlarged turbinates, no septal deviation. Mouth: Moist mucous membranes. Neck: Supple no thyromegaly. No bruit. No JVD Heart: Regular rate and rhythm, S1-S2 normal. No rubs murmurs or gallop Lungs: Clear to auscultation bilaterally. no rales or rhonchi Abdomen: Soft, nontender. Bowel sound are present. Extremities: No edema, no cyanosis, no clubbing. Neuro: Intubated and sedated Skin: No rashes or hyperpigmented spots Musculoskeletal system: No joint pain or swelling Hematological: No petechia or subcutanous hemorrhages. Immunological: No multiple septic spots on the skin Lymphatic: No generalized lymphadenopathy Psychiatry: Intubated and sedated. - Constitutional Vitals: Vital Signs - 12hr 03/27/19 03/27/19 03/27/19 20:00 21:00 22:00 Temperature Pulse Rate 71 73 59 L Pulse Rate [ Anterior Bilateral Throughout] Respiratory 18 19 19 Rate Respiratory Rate [Anterior Bilateral Throughout] Blood Pressure 131/61 134/75 132/68 O2 Sat by Pulse 98 99 99 Oximetry 03/27/19 03/27/19 03/27/19 22:29 23:00 23:01 Temperature Pulse Rate 62 79 97 H Pulse Rate [ Anterior Bilateral Throughout] Respiratory 20 Rate Respiratory Rate [Anterior Bilateral Throughout] Blood Pressure 132/68 139/68 139/68 O2 Sat by Pulse 100 100 Oximetry 03/27/19 03/27/19 03/28/19 23:02 23:36 00:00 Temperature 99.2 F Pulse Rate 90 63 Pulse Rate [ Anterior Bilateral Throughout] Respiratory 15 Rate Respiratory Rate [Anterior Bilateral Throughout] Blood Pressure 139/68 135/67 O2 Sat by Pulse 100 100 Oximetry 03/28/19 03/28/19 03/28/19 01:00 02:00 03:00 Temperature Pulse Rate 67 63 77 Pulse Rate [ Anterior Bilateral Throughout] Respiratory 15 23 16 Rate Respiratory Rate [Anterior Bilateral Throughout] Blood Pressure 138/66 118/51 134/64 O2 Sat by Pulse 100 98 98 Oximetry 03/28/19 03/28/19 03/28/19 03:20 03:31 04:00 Temperature 99.8 F H Pulse Rate 67 90 Pulse Rate [ Anterior Bilateral Throughout] Respiratory 24 Rate Respiratory Rate [Anterior Bilateral Throughout] Blood Pressure 134/64 134/64 O2 Sat by Pulse 99 100 Oximetry 03/28/19 03/28/19 03/28/19 05:00 06:00 07:00 Temperature Pulse Rate 70 73 53 L Pulse Rate [ Anterior Bilateral Throughout] Respiratory 22 11 L 16 Rate Respiratory Rate [Anterior Bilateral Throughout] Blood Pressure 132/60 118/72 118/72 O2 Sat by Pulse 98 99 97 Oximetry 03/28/19 03/28/19 07:39 07:45 Temperature Pulse Rate 52 L Pulse Rate [ 84 Anterior Bilateral Throughout] Respiratory Rate Respiratory 20 Rate [Anterior Bilateral Throughout] Blood Pressure 94/36 O2 Sat by Pulse 99 Oximetry - Labs CBC & Chem 7: 03/28/19 04:00 03/28/19 04:00 Labs: Abnormal lab results 03/26/19 03/27/19 03/27/19 Range/Units 12:29 10:03 12:08 WBC (4.5-11.0) K/mm3 RDW (13.2-15.2) % Lymph % (Auto) (13.4-35.0) % Kidder # (0.0-0.8) K/mm3 Seg Neutrophils % (40.0-70.0) % Seg Neutrophils # (1.8-7.7) K/mm3 Carbon Dioxide (22-30) mmol/L Creatinine (0.8-1.5) mg/dL Glucose (75-100) mg/dL POC Glucose 142 H 136 H (70-105) AST (5-40) units/L ALT (7-56) units/L Troponin T 0.040 H D (0.00-0.029) ng/mL 03/28/19 03/28/19 Range/Units 04:00 04:00 WBC 14.5 H (4.5-11.0) K/mm3 RDW 12.7 L (13.2-15.2) % Lymph % (Auto) 10.2 L (13.4-35.0) % Kidder # 1.0 H (0.0-0.8) K/mm3 Seg Neutrophils % 82.4 H (40.0-70.0) % Seg Neutrophils # 12.0 H (1.8-7.7) K/mm3 Carbon Dioxide 19 L (22-30) mmol/L Creatinine 0.6 L (0.8-1.5) mg/dL Glucose 119 H (75-100) mg/dL POC Glucose (70-105) AST 51 H (5-40) units/L ALT 97 H (7-56) units/L Troponin T (0.00-0.029) ng/mL
[2019-03-28] MEDS ORDERED: MAGNESIUM SULFATE 2GM/50ML 2 GM/50 ML BAG IV ONE (09:40)
[2019-03-28] MEDS: SODIUM CHLORIDE FLUSH SYRINGE 10 ML IV SCH ×2 (10:00→22:19)
[2019-03-28] MEDS: PEPCID IV SCH ×2 (10:00→22:15)
[2019-03-28] MEDS: ATIVAN PO SCH ×4 (10:00→22:15)
[2019-03-28] MEDS: VIMPAT PO SCH ×2 (10:00→22:15)
[2019-03-28] MEDS: LaMICtal PO SCH ×2 (10:00→22:22)
[2019-03-28] MEDS: METOPROLOL PO SCH ×2 (10:00→22:17)
[2019-03-28] MEDS: TOPAMAX PO SCH ×2 (10:00→22:23)
[2019-03-28] MEDS: VANCOMYCIN 1,750 MG in NACL 0.9% 500 ML 500 ML IV SCH (10:54)
--- NOTE | 2019-03-28 12:48 | Progress Note ---
Assessment and Plan Continue current management. 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 Objective Vital Signs Temp Pulse Pulse Pulse Resp Resp BP 03/28/19 12:00 65 18 99/44 03/28/19 11:08 68 99/53 03/28/19 11:00 93 H 14 99/53 03/28/19 10:01 91 H 22 109/49 03/28/19 10:00 97 H 95/55 03/28/19 09:00 50 L 14 96/36 03/28/19 08:00 98.4 F 51 L 52 L 13 93/34 03/28/19 07:45 84 20 03/28/19 07:39 52 L 94/36 03/28/19 07:00 53 L 16 118/72 03/28/19 06:00 73 11 L 118/72 03/28/19 05:00 70 22 132/60 03/28/19 04:00 90 24 134/64 03/28/19 03:31 67 134/64 03/28/19 03:20 99.8 F H 03/28/19 03:00 77 16 134/64 03/28/19 02:00 63 23 118/51 03/28/19 01:00 67 15 138/66 03/28/19 00:00 63 135/67 03/27/19 23:36 99.2 F 03/27/19 23:02 90 15 139/68 03/27/19 23:01 97 H 139/68 03/27/19 23:00 79 20 139/68 03/27/19 22:29 62 132/68 03/27/19 22:00 59 L 19 132/68 03/27/19 21:00 73 19 134/75 03/27/19 20:00 71 18 131/61 03/27/19 19:50 77 22 03/27/19 19:42 98.9 F 10/12/19 19:36 63 138/66 03/27/19 19:00 75 21 120/62 03/27/19 18:00 74 15 132/69 03/27/19 17:00 69 18 132/69 03/27/19 16:00 98.9 F 84 75 22 142/78 03/27/19 15:00 71 22 134/75 03/27/19 14:00 100 H 14 135/82 03/27/19 13:26 85 130/81 03/27/19 13:00 74 22 130/81 - Physical Examination General: No Apparent Distress, Other (intubated) HEENT: Positive: Normocephaly, Mucus Membranes Moist Neck: Positive: neck supple, trachea midline Cardiac: Positive: Reg Rate and Rhythm, S1/S2 Lungs: Positive: clear to auscultation Neuro: Positive: Other (sedated, but arousable) Abdomen: Positive: Soft, Active Bowel Sounds Skin: Positive: Clear. Negative: Rash Musculoskeletal: Normal Range of Motion Extremities: Present: normal. Absent: edema - Labs and Meds Cardiac Enzymes 03/28/19 Range/Units 04:00 AST 51 H (5-40) units/L CBC 03/28/19 Range/Units 04:00 WBC 14.5 H (4.5-11.0) K/mm3 RBC 4.48 (3.65-5.03) M/mm3 Hgb 14.0 (11.8-15.2) gm/dl Hct 41.7 (35.5-45.6) % Plt Count 299 (140-440) K/mm3 Lymph # 1.5 (1.2-5.4) K/mm3 [place]corn # 1.0 H (0.0-0.8) K/mm3 Eos # 0.0 (0.0-0.4) K/mm3 Baso # 0.0 (0.0-0.1) K/mm3 Comprehensive Metabolic Panel 03/28/19 Range/Units 04:00 Sodium 142 (137-145) mmol/L Potassium 4.1 (3.6-5.0) mmol/L Chloride 106.5 (98-107) mmol/L Carbon Dioxide 19 L (22-30) mmol/L BUN 9 (9-20) mg/dL Creatinine 0.6 L (0.8-1.5) mg/dL Glucose 119 H (75-100) mg/dL Calcium 8.9 (8.4-10.2) mg/dL AST 51 H (5-40) units/L ALT 97 H (7-56) units/L Alkaline Phosphatase 82 (35-129) units/L Total Protein 7.2 (6.3-8.2) g/dL Albumin 4.0 (3.9-5) g/dL - Imaging and Cardiology EKG: image reviewed - Telemetry EKG Rhythm: Sinus Rhythm - EKG Sinus rhythms and dysrhythmias: sinus tachycardia AV and intraventricular conduction: right bundle branch block Chamber hypertrophy or enlargement: left ventricular hypertro
[2019-03-28] MEDS: fentaNYL DRIP Premix 2,000 MCG/100 ML BAG IV SCH (16:46)
[2019-03-28] MEDS: DESYREL PO SCH (17:52)
--- NOTE | 2019-03-28 20:17 | Progress Note ---
Assessment and Plan Imp: 1. Status epilepticus 2. Seizure d/o 3. Acute respiratory failure, hypoxia 4. S/p CP arrest 5. SIRS 6. MERRF Rec: 1. Had a long discussion with mother by phone and clarified his home regimen have been restarted: Trazodone 50mg QHS, Keppra 1500mg BID, Vimpat 200mg BID, Lamictal 300mg BID, Ativan PO 1mg QID, Klonopin 1mg BID, Topamax 50mg BID, Baclofen 5mg TID 2. Resume home regimen per above; off Ativan drip; stop Fentanyl drip in AM, place on PSV, and hopefully extubate 3. D/c Steroids 4. D/c ABX 5. TFs 6. DVT/GI PPx 7. Family considering both DNR status and SNF placement long-term 8. Complex decision-making; no family present today Subjective Date of service: 03/28/19 Principal diagnosis: C-P arrest, Acute resp failure, status epilepticus, MERRF Interval history: No events. Off Ativan drip and remains on Fent drip. Arouses and follows commands. On TFs. Active Medications Acetaminophen (Tylenol) 650 mg PO Q4H PRN PRN Reason: Pain MILD(1-3)/Fever >100.5/ALCARAZ Albuterol (Proventil) 2.5 mg IH Q4HRT PRN PRN Reason: Shortness Of Breath Albuterol/Ipratropium (Duoneb *Not For Prn Use*) 1 ampul IH QIDRT [facility] Last Admin: 03/28/19 19:28 Dose: 1 ampul Documented by: Lipase/Protease/Amylase (Pancreruby Sánchez 10,500 Unit) 1 each FEEDTUBE PRN PRN PRN Reason: For Clogged Feeding Tube Clonazepam (Klonopin) 1 mg PO BID [facility] Last Admin: 03/28/19 10:00 Dose: 1 mg Documented by: Enoxaparin Sodium (Lovenox) 40 mg SUB-Q QDAY@2200 [facility] Last Admin: 03/27/19 22:28 Dose: 40 mg Documented by: Famotidine (Pepcid) 20 mg IV BID [facility] Last Admin: 03/28/19 10:00 Dose: 20 mg Documented by: Hydromorphone HCl (Dilaudid) 0.5 mg IV Q3H PRN PRN Reason: Pain , Severe (7-10) Lorazepam 100 mg/ Sodium Chloride/ Miscellaneous Information 100 mls @ 1 mls/hr IV TITR [facility]; Protocol Last Titration: 03/28/19 19:16 Dose: 0 mg/hr, 0 mls/hr Documented by: Fentanyl Citrate (Fentanyl Drip Premix) 2,000 mcg in 100 mls @ 5.5 mls/hr IV TITR [facility]; Protocol Last Admin: 03/28/19 16:46 Dose: 1 mcg/kg/hr, 5.5 mls/hr Documented by: Sodium Chloride (Nacl 0.9% 1000 Ml) 1,000 mls @ 100 mls/hr IV DIRECT [facility] Last Admin: 03/28/19 16:41 Dose: 100 mls/hr Documented by: Levetiracetam 1,500 mg/ (Dextrose) 115 mls @ 400 mls/hr IV Q12H [facility] Last Infusion: 03/28/19 18:30 Dose: Infused Documented by: Lacosamide (Vimpat) 200 mg PO Q12HR [facility] Last Admin: 03/28/19 10:00 Dose: 200 mg Documented by: Lamotrigine (Lamictal) 300 mg PO BID [facility] Last Admin: 03/28/19 10:00 Dose: 300 mg Documented by: Lorazepam (Ativan) 1 mg PO QID [facility] Last Admin: 03/28/19 17:52 Dose: 1 mg Documented by: Metoclopramide HCl (Reglan) 10 mg IV Q6H PRN PRN Reason: Nausea And Vomiting Metoprolol Tartrate (Lopressor) 12.5 mg PO BID [facility] Last Admin: 03/28/19 10:00 Dose: Not Given Documented by: Ondansetron HCl (Zofran) 4 mg IV Q3H PRN PRN Reason: Nausea And Vomiting Simple Syrup (Simple Syrup) 15 ml FEEDTUBE PRN PRN PRN Reason: Hypoglycemia Simple Syrup (Simple Syrup) 30 ml FEEDTUBE PRN PRN PRN Reason: Hypoglycemia Sodium Bicarbonate (Sodium Bicarbonate) 325 mg FEEDTUBE PRN PRN PRN Reason: For Clogged Feeding Tube Sodium Chloride (Sodium Chloride Flush Syringe 10 Ml) 10 ml IV BID [facility] Last Admin: 03/28/19 10:00 Dose: 10 ml Documented by: Sodium Chloride (Sodium Chloride Flush Syringe 10 Ml) 10 ml IV PRN PRN PRN Reason: LINE FLUSH Last Admin: 03/26/19 22:28 Dose: 10 ml Documented by: Topiramate (Topamax) 50 mg PO Q12HR [facility] Last Admin: 03/28/19 10:00 Dose: 50 mg Documented by: Trazodone HCl (Desyrel) 50 mg PO QPM [facility] Last Admin: 03/28/19 17:52 Dose: 50 mg Documented by: Objective Vital Signs - 12hr 03/28/19 03/28/19 03/28/19 09:00 10:00 10:01 Temperature Pulse Rate 50 L 97 H 91 H Pulse Rate [ Anterior Bilateral Throughout] Pulse Rate [ From Monitor] Respiratory 14 22 Rate Respiratory Rate [Anterior Bilateral Throughout] Blood Pressure 96/36 95/55 109/49 O2 Sat by Pulse 97 99 Oximetry 03/28/19 03/28/19 03/28/19 11:00 11:08 12:00 Temperature 98.5 F Pulse Rate 93 H 68 68 Pulse Rate [ Anterior Bilateral Throughout] Pulse Rate [ 69 From Monitor] Respiratory 14 18 Rate Respiratory Rate [Anterior Bilateral Throughout] Blood Pressure 99/53 99/53 99/44 O2 Sat by Pulse 100 100 98 Oximetry 03/28/19 03/28/19 03/28/19 13:00 14:00 15:00 Temperature Pulse Rate 77 92 H 73 Pulse Rate [ 82 Anterior Bilateral Throughout] Pulse Rate [ From Monitor] Respiratory 12 12 18 Rate Respiratory 20 Rate [Anterior Bilateral Throughout] Blood Pressure 109/58 112/57 102/45 O2 Sat by Pulse 99 99 99 Oximetry 03/28/19 03/28/19 03/28/19 16:00 17:00 18:00 Temperature 98 F Pulse Rate 85 77 116 H Pulse Rate [ Anterior Bilateral Throughout] Pulse Rate [ 80 From Monitor] Respiratory 16 13 16 Rate Respiratory Rate [Anterior Bilateral Throughout] Blood Pressure 110/51 108/49 106/61 O2 Sat by Pulse 100 100 100 Oximetry 03/28/19 03/28/19 03/28/19 19:01 19:24 19:52 Temperature Pulse Rate 95 H 79 Pulse Rate [ 93 H Anterior Bilateral Throughout] Pulse Rate [ From Monitor] Respiratory 23 Rate Respiratory 22 Rate [Anterior Bilateral Throughout] Blood Pressure 100/57 87/41 O2 Sat by Pulse 100 99 Oximetry Constitutional: other (intubated, sedated, critically ill on vent) Eyes: non-icteric ENT: oropharynx moist Neck: supple Effort: normal Ascultation: Bilateral: other (coarse BS bilaterally) Cardiovascular: regular rate and rhythm (no mrg) Gastrointestinal: normoactive bowel sounds, soft, non-tender, non-distended Integumentary: normal Extremities: no cyanosis, no edema, pink and warm Neurologic: other (wakes up, moves all extremities and follows commands) Psychiatric: anxious CBC and BMP: 03/28/19 04:00 03/28/19 04:00 ABG, PT/INR, D-dimer: ABG POC ABG pH 7.390 (7.35-7.45) 03/27/19 05:47 ABG pH 7.386 pH Units (7.350-7.450) 03/26/19 05:00 POC ABG pCO2 31.7 (35-45) L 03/27/19 05:47 ABG pCO2 28.7 mm Hg 03/26/19 05:00 POC ABG pO2 93 (80-105) 03/27/19 05:47 ABG pO2 134.8 mm Hg (80.0-90.0) H 03/26/19 05:00 POC ABG HCO3 19.2 (22-26 mml/L) 03/27/19 05:47 POC ABG Total CO2 20 (23-27mmol/L) 03/27/19 05:47 POC ABG O2 Sat 97 03/27/19 05:47 ABG O2 Saturation 98.6 % (95.0-99.0) 03/26/19 05:00 Abnormal lab findings: Abnormal Labs 03/25/19 03/25/19 03/25/19 17:56 17:56 17:56 WBC 16.4 H RDW 12.6 L Lymph % (Auto) 13.3 L Lymph # [place] # Seg Neutrophils % 80.8 H Seg Neutrophils # 13.3 H POC ABG pH POC ABG pCO2 POC ABG pO2 ABG pO2 ABG HCO3 ABG Base Excess ABG Hemoglobin VBG pH Potassium 3.3 L Chloride 108.6 H Carbon Dioxide 19 L BUN Creatinine Glucose 182 H POC Glucose Lactic Acid 4.80 H* Calcium 8.3 L Magnesium AST 41 H ALT Troponin T 0.034 H LDL Cholesterol Direct 137 H Urine WBC (Auto) 03/25/19 03/25/19 03/25/19 18:04 18:13 18:39 WBC RDW Lymph % (Auto) Lymph # [place] # Seg Neutrophils % Seg Neutrophils # POC ABG pH 7.277 L POC ABG pCO2 POC ABG pO2 378 H ABG pO2 ABG HCO3 ABG Base Excess ABG Hemoglobin VBG pH 7.231 L Potassium Chloride Carbon Dioxide BUN Creatinine Glucose POC Glucose Lactic Acid Calcium Magnesium AST ALT Troponin T LDL Cholesterol Direct Urine WBC (Auto) 8.0 H 03/25/19 03/25/19 03/25/19 19:36 20:29 22:54 WBC RDW Lymph % (Auto) Lymph # [place] # Seg Neutrophils % Seg Neutrophils # POC ABG pH POC ABG pCO2 POC ABG pO2 ABG pO2 ABG HCO3 ABG Base Excess ABG Hemoglobin VBG pH Potassium Chloride Carbon Dioxide BUN Creatinine Glucose POC Glucose Lactic Acid 2.40 H* 2.30 H* Calcium Magnesium AST ALT Troponin T 0.077 H D LDL Cholesterol Direct Urine WBC (Auto) 03/25/19 03/26/19 03/26/19 22:54 04:30 04:30 WBC 14.1 H RDW 12.5 L Lymph % (Auto) 7.0 L Lymph # 1.0 L [place] # Seg Neutrophils % 89.4 H Seg Neutrophils # 12.6 H POC ABG pH POC ABG pCO2 POC ABG pO2 ABG pO2 ABG HCO3 ABG Base Excess ABG Hemoglobin VBG pH Potassium Chloride 111.1 H Carbon Dioxide 19 L BUN Creatinine 0.7 L Glucose 140 H POC Glucose Lactic Acid 2.10 H* Calcium Magnesium AST ALT Troponin T LDL Cholesterol Direct Urine WBC (Auto) 03/26/19 03/26/19 03/26/19 05:00 12:29 16:24 WBC RDW Lymph % (Auto) Lymph # [place] # Seg Neutrophils % Seg Neutrophils # POC ABG pH POC ABG pCO2 POC ABG pO2 ABG pO2 134.8 H ABG HCO3 16.8 L ABG Base Excess -6.8 L ABG Hemoglobin 13.8 L VBG pH Potassium Chloride Carbon Dioxide BUN Creatinine Glucose POC Glucose 142 H 119 H Lactic Acid Calcium Magnesium AST ALT Troponin T LDL Cholesterol Direct Urine WBC (Auto) 03/27/19 03/27/19 03/27/19 05:00 05:00 05:47 WBC 19.1 H RDW 12.9 L Lymph % (Auto) 7.1 L Lymph # [place] # 1.1 H Seg Neutrophils % 87.1 H Seg Neutrophils # 16.6 H POC ABG pH POC ABG pCO2 31.7 L POC ABG pO2 ABG pO2 ABG HCO3 ABG Base Excess ABG Hemoglobin VBG pH Potassium Chloride 110.0 H Carbon Dioxide 19 L BUN 6 L Creatinine 0.6 L Glucose 135 H POC Glucose Lactic Acid Calcium Magnesium 1.50 L AST ALT Troponin T LDL Cholesterol Direct Urine WBC (Auto) 03/27/19 03/27/19 03/28/19 10:03 12:08 04:00 WBC 14.5 H RDW 12.7 L Lymph % (Auto) 10.2 L Lymph # [place] # 1.0 H Seg Neutrophils % 82.4 H Seg Neutrophils # 12.0 H POC ABG pH POC ABG pCO2 POC ABG pO2 ABG pO2 ABG HCO3 ABG Base Excess ABG Hemoglobin VBG pH Potassium Chloride Carbon Dioxide BUN Creatinine Glucose POC Glucose 136 H Lactic Acid Calcium Magnesium AST ALT Troponin T 0.040 H D LDL Cholesterol Direct Urine WBC (Auto) 03/28/19 04:00 WBC RDW Lymph % (Auto) Lymph # [place] # Seg Neutrophils % Seg Neutrophils # POC ABG pH POC ABG pCO2 POC ABG pO2 ABG pO2 ABG HCO3 ABG Base Excess ABG Hemoglobin VBG pH Potassium Chloride Carbon Dioxide 19 L BUN Creatinine 0.6 L Glucose 119 H POC Glucose Lactic Acid Calcium Magnesium AST 51 H ALT 97 H Troponin T LDL Cholesterol Direct Urine WBC (Auto) Chest x-ray: report reviewed, image reviewed
[2019-03-28] MEDS: ENOXAPARIN SUB-Q SCH (22:14)
[2019-03-29] MEDS: NACL 0.9% 1000 ML 1,000 ML IV SCH (03:15)
[2019-03-29 05:55] LABS: Basophils % (Auto) 0.3 % (0.0-1.8); Eosinophils # (Auto) 0.1 K/mm3 (0.0-0.4); Eosinophils % (Auto) 0.6 % (0.0-4.3); Hematocrit 38.1 % (35.5-45.6); Lymphocytes # (Auto) 4.3 K/mm3 (1.2-5.4); Lymphocytes % (Auto) 36.6 % (13.4-35.0); Mean Corpuscular HGB Conc 34 % (32-34); Mean Corpuscular Volume 91 fl (84-94); Monocytes # (Auto) 1.4 K/mm3 (0.0-0.8); Monocytes % (Auto) 12.2 % (0.0-7.3); Platelet Count 307 K/mm3 (140-440); Red Cell Distribution Width 12.7 % (13.2-15.2)
[2019-03-29] MEDS: KEPPRA 1,500 MG in D5W 100 ML IV SCH ×2 (06:08→18:10)
[2019-03-29 06:21] LABS: Alanine Aminotransferase 79 units/L (7-56); Albumin 3.4 g/dL (3.9-5); BUN/Creatinine Ratio 11; Blood Urea Nitrogen 8 mg/dL (9-20); Hemolysis Index 12
[2019-03-29] MEDS: DUONEB *Not for PRN Use IH SCH ×2 (07:14→12:45)
--- NOTE | 2019-03-29 07:23 | Consultation ---
ROOM: ICU, bed 2. HISTORY OF PRESENT ILLNESS: This is a 29-year-old white male with refractory intractable seizures. I have spoken to his mother several hours ago. At that point, the patient had become extremely agitated, hostile, refused taking his medication. Mother called me about home health. This could not be accomplished. I recommend he be brought to the Emergency Room as there was some potential for him to have a seizure. To more understand, he was being transported here and on the way, went into a seizure and then had a cardiac arrest. He has subsequently been intubated and that situation has been dealt with by the patient being intubated and he is now in sinus rhythm, moving somewhat, although the seizures have stopped. I spoke with respiratory therapist and RN. I attempted to contact the mother, but she is currently unavailable. IMPRESSION: Intractable refractory seizures status post cardiac arrest. PLAN: Further observation. JOB# [id number] GHANSHYAM/VALENTIN
--- NOTE | 2019-03-29 07:57 | Progress Note ---
Assessment and Plan 29-year-old male patient with significant past medical history of seizure disorder presented to the emergency room with postictal confusion and seizure, The patient had cardiac arrest prior to arrival to the hospital status post CPR with spontaneous return of circulation. Intubated and was admitted to ICU. -Status epilepticus; Continue with seizure precautions, and antiepileptic medications Neurology following -Cardiac arrest; status post CPR Continue supportive care, cardiology evaluated -Acute hypoxemic respiratory failure, intubated and on MV for 96 hr Continue mechanical ventilation, pulmonary critical following Wean as tolerated and extubate -Sepsis, possible aspiration pneumonia; Patient has leukocytosis and lactic acidosis bilateral atelectasis Continue empiric antibiotics follow cultures, pulmonary following Blood and sputum Cx yielded no growth ID evaluation -Vagus nerve stimulator: in place -Possible anoxic encephalopathy; supportive care - Transaminasemia improving with elevated T.bili Obtain biliary US -DVT prophylaxis;Lovenox Monitor closely and adjust the management as needed Follow-up consults and recommendations Critical care time 32 minutes Subjective Date of service: 03/29/19 Principal diagnosis: C-P arrest, Acute resp failure, status epilepticus, MERRF Interval history: Remains intubated and on MV > 96 hrs No more seizure activity noted. Afebrile. awake and response to question with head gestures Discussed with pt's nurse. No overnight event reported to me. Objective - Exam Narrative Exam: Constitutional: Well-nourished well-developed. Intubated on a MVS > 96 hours Head: Normocephalic atraumatic Eyes: Pupils are equal round and reactive to light Nose: No enlarged turbinates, no septal deviation. Mouth: Moist mucous membranes. Neck: Supple no thyromegaly. No bruit. No JVD Heart: Regular rate and rhythm, S1-S2 normal. No rubs murmurs or gallop Lungs: Clear to auscultation bilaterally. no rales or rhonchi Abdomen: Soft, nontender. Bowel sound are present. Extremities: No edema, no cyanosis, no clubbing. Neuro: Intubated responds to gestures with by nodding Skin: No rashes or hyperpigmented spots Musculoskeletal system: No joint pain or swelling Hematological: No petechia or subcutanous hemorrhages. Immunological: No multiple septic spots on the skin Lymphatic: No generalized lymphadenopathy Psychiatry: Intubated - Constitutional Vitals: Vital Signs - 12hr 03/28/19 03/28/19 03/28/19 20:00 21:00 22:00 Temperature 98.8 F Pulse Rate 87 84 83 Pulse Rate [ Anterior Bilateral Throughout] Respiratory 18 14 15 Rate Respiratory Rate [Anterior Bilateral Throughout] Blood Pressure 109/56 94/49 92/42 O2 Sat by Pulse 100 99 99 Oximetry 03/28/19 03/28/19 03/28/19 22:17 23:00 23:15 Temperature Pulse Rate 80 75 101 H Pulse Rate [ Anterior Bilateral Throughout] Respiratory 23 Rate Respiratory Rate [Anterior Bilateral Throughout] Blood Pressure 98/46 101/54 106/62 O2 Sat by Pulse 100 99 Oximetry 03/28/19 03/29/19 03/29/19 23:44 00:00 00:05 Temperature 99.2 F Pulse Rate 129 H 104 H Pulse Rate [ Anterior Bilateral Throughout] Respiratory 22 9 L Rate Respiratory Rate [Anterior Bilateral Throughout] Blood Pressure 120/70 120/70 O2 Sat by Pulse 99 100 Oximetry 03/29/19 03/29/19 03/29/19 01:00 02:00 03:00 Temperature Pulse Rate 113 H 118 H 111 H Pulse Rate [ Anterior Bilateral Throughout] Respiratory 16 19 14 Rate Respiratory Rate [Anterior Bilateral Throughout] Blood Pressure 101/57 106/69 98/66 O2 Sat by Pulse 100 100 100 Oximetry 03/29/19 03/29/19 03/29/19 03:08 04:00 05:00 Temperature 99.9 F H Pulse Rate 95 H 120 H 103 H Pulse Rate [ Anterior Bilateral Throughout] Respiratory 19 22 Rate Respiratory Rate [Anterior Bilateral Throughout] Blood Pressure 98/66 102/63 97/64 O2 Sat by Pulse 100 97 97 Oximetry 03/29/19 03/29/19 06:00 07:14 Temperature Pulse Rate 112 H 84 Pulse Rate [ 87 Anterior Bilateral Throughout] Respiratory 15 Rate Respiratory 22 Rate [Anterior Bilateral Throughout] Blood Pressure 117/66 110/57 O2 Sat by Pulse 97 98 Oximetry - Labs CBC & Chem 7: 03/29/19 05:40 03/29/19 05:40 Labs: Abnormal lab results 03/29/19 03/29/19 Range/Units 05:40 05:40 WBC 11.8 H (4.5-11.0) K/mm3 RDW 12.7 L (13.2-15.2) % Lymph % (Auto) 36.6 H (13.4-35.0) % [place] % (Auto) 12.2 H (0.0-7.3) % [place] # 1.4 H (0.0-0.8) K/mm3 Potassium 3.1 L D (3.6-5.0) mmol/L Chloride 107.3 H (98-107) mmol/L BUN 8 L (9-20) mg/dL Creatinine 0.7 L (0.8-1.5) mg/dL Glucose 101 H (75-100) mg/dL Calcium 8.0 L (8.4-10.2) mg/dL ALT 79 H (7-56) units/L Total Protein 6.0 L (6.3-8.2) g/dL Albumin 3.4 L (3.9-5) g/dL
[2019-03-29] MEDS: ATIVAN PO SCH ×4 (09:25→21:12)
[2019-03-29] MEDS: PEPCID PO SCH ×2 (09:25→21:15)
[2019-03-29] MEDS: METOPROLOL PO SCH ×2 (09:25→21:13)
[2019-03-29] MEDS: VIMPAT PO SCH ×2 (09:25→21:16)
[2019-03-29] MEDS: LaMICtal PO SCH ×2 (09:27→21:13)
[2019-03-29] MEDS: TOPAMAX PO SCH ×2 (09:28→21:15)
[2019-03-29] MEDS: SODIUM CHLORIDE FLUSH SYRINGE 10 ML IV SCH ×2 (09:28→21:16)
--- NOTE | 2019-03-29 12:19 | Progress Note ---
Assessment and Plan Pt noted to be in sinus tachycardia. Can consider addition of BB for HR optimization if BPs permit. The patient has been seen in conjunction with Dr. Arellano who agrees with the assessment and plan of care. 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 in sinus tachycardia HR 115s on telemetry. Objective Last Vital Signs Temp 99.9 F H 03/29/19 04:00 Pulse 149 H 03/29/19 11:54 Resp 22 03/29/19 07:14 BP 113/54 03/29/19 09:25 Pulse Ox 98 03/29/19 07:14 - Physical Examination General: No Apparent Distress, Other (intubated) HEENT: Positive: Normocephaly, Mucus Membranes Moist Neck: Positive: neck supple, trachea midline Cardiac: Positive: Regular Rhythm, S1/S2, Tachycardia Lungs: Positive: Decreased Breath Sounds Neuro: Positive: Other (intubated, alert) Abdomen: Positive: Soft, Active Bowel Sounds Skin: Positive: Clear. Negative: Rash Musculoskeletal: Normal Range of Motion Extremities: Present: normal. Absent: edema - Labs and Meds Cardiac Enzymes 03/29/19 Range/Units 05:40 AST 25 (5-40) units/L CBC 03/29/19 Range/Units 05:40 WBC 11.8 H (4.5-11.0) K/mm3 RBC 4.20 (3.65-5.03) M/mm3 Hgb 13.0 (11.8-15.2) gm/dl Hct 38.1 (35.5-45.6) % Plt Count 307 (140-440) K/mm3 Lymph # 4.3 (1.2-5.4) K/mm3 [place] # 1.4 H (0.0-0.8) K/mm3 Eos # 0.1 (0.0-0.4) K/mm3 Baso # 0.0 (0.0-0.1) K/mm3 Comprehensive Metabolic Panel 03/29/19 Range/Units 05:40 Sodium 142 (137-145) mmol/L Potassium 3.1 L D (3.6-5.0) mmol/L Chloride 107.3 H (98-107) mmol/L Carbon Dioxide 23 (22-30) mmol/L BUN 8 L (9-20) mg/dL Creatinine 0.7 L (0.8-1.5) mg/dL Glucose 101 H (75-100) mg/dL Calcium 8.0 L (8.4-10.2) mg/dL AST 25 (5-40) units/L ALT 79 H (7-56) units/L Alkaline Phosphatase 67 (35-129) units/L Total Protein 6.0 L (6.3-8.2) g/dL Albumin 3.4 L (3.9-5) g/dL - Imaging and Cardiology EKG: report reviewed, image reviewed Echo: report reviewed (EF 60-65%, trace TR, impaired relaxation.) - Telemetry EKG Rhythm: Sinus Tachycardia - EKG Sinus rhythms and dysrhythmias: sinus tachycardia AV and intraventricular conduction: right bundle branch block Chamber hypertrophy or enlargement: left ventricular hypertro
--- NOTE | 2019-03-29 13:29 | Progress Note ---
Assessment and Plan Imp: 1. Status epilepticus 2. Seizure d/o 3. Acute respiratory failure, hypoxia 4. S/p CP arrest 5. SIRS 6. MERRF Rec: 1. Had a long discussion with mother by phone and clarified his home regimen have been restarted: Trazodone 50mg QHS, Keppra 1500mg BID, Vimpat 200mg BID, Lamictal 300mg BID, Ativan PO 1mg QID, Klonopin 1mg BID, Topamax 50mg BID, Baclofen 5mg TID 2. Resume home regimen per above; Ativan drip discontinued; stop Fentanyl drip QAM for daily SBT; failed PSV today, try again in AM; may have to consider Precedex if continues to be agitated on PSV 3. D/c Steroids 4. D/c ABX and monitor temp/WBC 5. TFs 6. DVT/GI PPx 7. Family considering both DNR status and SNF placement long-term 8. K Repleted 9. Repeat labs in AM 10. Stop Duonebs given tachycardia Guarded prognosis CCt 31 minutes No family present today Subjective Date of service: 03/29/19 Principal diagnosis: C-P arrest, Acute resp failure, status epilepticus, MERRF Interval history: No events. Off Ativan drip and Fentanyl drips. Placed on PSV. Became severely agitated with tachypnea 30's, HR up to 150, diaphoretic. Changed back to ACVC and Fentanyl drip resumed. Asked RN to give 2mg of IV Ativan to calm him down. He cannot provide history. Active Medications Acetaminophen (Tylenol) 650 mg PO Q4H PRN PRN Reason: Pain MILD(1-3)/Fever >100.5/ALCARAZ Albuterol (Proventil) 2.5 mg IH Q4HRT PRN PRN Reason: Shortness Of Breath Lipase/Protease/Amylase (Pancreruby Dr 10,500 Unit) 1 each FEEDTUBE PRN PRN PRN Reason: For Clogged Feeding Tube Clonazepam (Klonopin) 1 mg PO BID [facility] Last Admin: 03/29/19 09:25 Dose: 1 mg Documented by: Enoxaparin Sodium (Lovenox) 40 mg SUB-Q QDAY@2200 [facility] Last Admin: 03/28/19 22:14 Dose: 40 mg Documented by: Famotidine (Pepcid) 20 mg PO BID [facility] Last Admin: 03/29/19 09:25 Dose: 20 mg Documented by: Hydromorphone HCl (Dilaudid) 0.5 mg IV Q3H PRN PRN Reason: Pain , Severe (7-10) Fentanyl Citrate (Fentanyl Drip Premix) 2,000 mcg in 100 mls @ 5.5 mls/hr IV TITR [facility]; Protocol Last Titration: 03/29/19 08:00 Dose: 0 mcg/kg/hr, 0 mls/hr Documented by: Levetiracetam 1,500 mg/ (Dextrose) 115 mls @ 400 mls/hr IV Q12H [facility] Last Admin: 03/29/19 06:08 Dose: 400 mls/hr Documented by: Lacosamide (Vimpat) 200 mg PO Q12HR [facility] Last Admin: 03/29/19 09:25 Dose: 200 mg Documented by: Lamotrigine (Lamictal) 300 mg PO BID [facility] Last Admin: 03/29/19 09:27 Dose: 300 mg Documented by: Lorazepam (Ativan) 1 mg PO QID [facility] Last Admin: 03/29/19 09:25 Dose: 1 mg Documented by: Lorazepam (Ativan) 2 mg IV Q4H PRN PRN Reason: Agitation Metoclopramide HCl (Reglan) 10 mg IV Q6H PRN PRN Reason: Nausea And Vomiting Metoprolol Tartrate (Lopressor) 12.5 mg PO BID [facility] Last Admin: 03/29/19 09:25 Dose: 12.5 mg Documented by: Ondansetron HCl (Zofran) 4 mg IV Q3H PRN PRN Reason: Nausea And Vomiting Potassium Chloride (Potassium Chloride) 40 meq FEEDTUBE Q4H [facility] Stop: 03/29/19 14:01 Simple Syrup (Simple Syrup) 15 ml FEEDTUBE PRN PRN PRN Reason: Hypoglycemia Simple Syrup (Simple Syrup) 30 ml FEEDTUBE PRN PRN PRN Reason: Hypoglycemia Sodium Bicarbonate (Sodium Bicarbonate) 325 mg FEEDTUBE PRN PRN PRN Reason: For Clogged Feeding Tube Sodium Chloride (Sodium Chloride Flush Syringe 10 Ml) 10 ml IV BID [facility] Last Admin: 03/29/19 09:28 Dose: 10 ml Documented by: Sodium Chloride (Sodium Chloride Flush Syringe 10 Ml) 10 ml IV PRN PRN PRN Reason: LINE FLUSH Last Admin: 03/26/19 22:28 Dose: 10 ml Documented by: Topiramate (Topamax) 50 mg PO Q12HR [facility] Last Admin: 03/29/19 09:28 Dose: 50 mg Documented by: Trazodone HCl (Desyrel) 50 mg PO QPM [facility] Last Admin: 03/28/19 17:52 Dose: 50 mg Documented by: Objective Vital Signs - 12hr 03/29/19 03/29/19 03/29/19 02:00 03:00 03:08 Temperature Pulse Rate 118 H 111 H 95 H Pulse Rate [ Anterior Bilateral Throughout] Respiratory 19 14 Rate Respiratory Rate [Anterior Bilateral Throughout] Blood Pressure 106/69 98/66 98/66 O2 Sat by Pulse 100 100 100 Oximetry 03/29/19 03/29/19 03/29/19 04:00 05:00 06:00 Temperature 99.9 F H Pulse Rate 120 H 103 H 112 H Pulse Rate [ Anterior Bilateral Throughout] Respiratory 19 22 15 Rate Respiratory Rate [Anterior Bilateral Throughout] Blood Pressure 102/63 97/64 117/66 O2 Sat by Pulse 97 97 97 Oximetry 03/29/19 03/29/19 03/29/19 07:14 09:25 11:54 Temperature Pulse Rate 84 132 H 149 H Pulse Rate [ 87 Anterior Bilateral Throughout] Respiratory Rate Respiratory 22 Rate [Anterior Bilateral Throughout] Blood Pressure 110/57 113/54 O2 Sat by Pulse 98 Oximetry 03/29/19 12:45 Temperature Pulse Rate Pulse Rate [ 145 H Anterior Bilateral Throughout] Respiratory Rate Respiratory 28 H Rate [Anterior Bilateral Throughout] Blood Pressure O2 Sat by Pulse Oximetry Constitutional: other (intubated, sedated, critically ill on vent) Eyes: non-icteric ENT: oropharynx moist Neck: supple Effort: other (tachypneic) Ascultation: Bilateral: other (coarse BS bilaterally) Cardiovascular: other (tachy, RR; no mrg) Gastrointestinal: normoactive bowel sounds, soft, non-tender, non-distended Integumentary: normal Extremities: no cyanosis, no edema, pink and warm Neurologic: other (wakes up, moves all extremities and follows commands) Psychiatric: anxious CBC and BMP: 03/29/19 05:40 03/29/19 05:40 ABG, PT/INR, D-dimer: ABG POC ABG pH 7.390 (7.35-7.45) 03/27/19 05:47 ABG pH 7.386 pH Units (7.350-7.450) 03/26/19 05:00 POC ABG pCO2 31.7 (35-45) L 03/27/19 05:47 ABG pCO2 28.7 mm Hg 03/26/19 05:00 POC ABG pO2 93 (80-105) 03/27/19 05:47 ABG pO2 134.8 mm Hg (80.0-90.0) H 03/26/19 05:00 POC ABG HCO3 19.2 (22-26 mml/L) 03/27/19 05:47 POC ABG Total CO2 20 (23-27mmol/L) 03/27/19 05:47 POC ABG O2 Sat 97 03/27/19 05:47 ABG O2 Saturation 98.6 % (95.0-99.0) 03/26/19 05:00 Abnormal lab findings: Abnormal Labs 03/25/19 03/25/19 03/25/19 17:56 17:56 17:56 WBC 16.4 H RDW 12.6 L Lymph % (Auto) 13.3 L [place] % (Auto) Lymph # [place] # Seg Neutrophils % 80.8 H Seg Neutrophils # 13.3 H POC ABG pH POC ABG pCO2 POC ABG pO2 ABG pO2 ABG HCO3 ABG Base Excess ABG Hemoglobin VBG pH Potassium 3.3 L Chloride 108.6 H Carbon Dioxide 19 L BUN Creatinine Glucose 182 H POC Glucose Lactic Acid 4.80 H* Calcium 8.3 L Magnesium AST 41 H ALT Troponin T 0.034 H Total Protein Albumin LDL Cholesterol Direct 137 H Urine WBC (Auto) 03/25/19 03/25/19 03/25/19 18:04 18:13 18:39 WBC RDW Lymph % (Auto) [place] % (Auto) Lymph # [place] # Seg Neutrophils % Seg Neutrophils # POC ABG pH 7.277 L POC ABG pCO2 POC ABG pO2 378 H ABG pO2 ABG HCO3 ABG Base Excess ABG Hemoglobin VBG pH 7.231 L Potassium Chloride Carbon Dioxide BUN Creatinine Glucose POC Glucose Lactic Acid Calcium Magnesium AST ALT Troponin T Total Protein Albumin LDL Cholesterol Direct Urine WBC (Auto) 8.0 H 03/25/19 03/25/19 03/25/19 19:36 20:29 22:54 WBC RDW Lymph % (Auto) [place] % (Auto) Lymph # [place] # Seg Neutrophils % Seg Neutrophils # POC ABG pH POC ABG pCO2 POC ABG pO2 ABG pO2 ABG HCO3 ABG Base Excess ABG Hemoglobin VBG pH Potassium Chloride Carbon Dioxide BUN Creatinine Glucose POC Glucose Lactic Acid 2.40 H* 2.30 H* Calcium Magnesium AST ALT Troponin T 0.077 H D Total Protein Albumin LDL Cholesterol Direct Urine WBC (Auto) 03/25/19 03/26/19 03/26/19 22:54 04:30 04:30 WBC 14.1 H RDW 12.5 L Lymph % (Auto) 7.0 L [place] % (Auto) Lymph # 1.0 L [place] # Seg Neutrophils % 89.4 H Seg Neutrophils # 12.6 H POC ABG pH POC ABG pCO2 POC ABG pO2 ABG pO2 ABG HCO3 ABG Base Excess ABG Hemoglobin VBG pH Potassium Chloride 111.1 H Carbon Dioxide 19 L BUN Creatinine 0.7 L Glucose 140 H POC Glucose Lactic Acid 2.10 H* Calcium Magnesium AST ALT Troponin T Total Protein Albumin LDL Cholesterol Direct Urine WBC (Auto) 03/26/19 03/26/19 03/26/19 05:00 12:29 16:24 WBC RDW Lymph % (Auto) [place] % (Auto) Lymph # [place] # Seg Neutrophils % Seg Neutrophils # POC ABG pH POC ABG pCO2 POC ABG pO2 ABG pO2 134.8 H ABG HCO3 16.8 L ABG Base Excess -6.8 L ABG Hemoglobin 13.8 L VBG pH Potassium Chloride Carbon Dioxide BUN Creatinine Glucose POC Glucose 142 H 119 H Lactic Acid Calcium Magnesium AST ALT Troponin T Total Protein Albumin LDL Cholesterol Direct Urine WBC (Auto) 03/27/19 03/27/19 03/27/19 05:00 05:00 05:47 WBC 19.1 H RDW 12.9 L Lymph % (Auto) 7.1 L [place] % (Auto) Lymph # [place] # 1.1 H Seg Neutrophils % 87.1 H Seg Neutrophils # 16.6 H POC ABG pH POC ABG pCO2 31.7 L POC ABG pO2 ABG pO2 ABG HCO3 ABG Base Excess ABG Hemoglobin VBG pH Potassium Chloride 110.0 H Carbon Dioxide 19 L BUN 6 L Creatinine 0.6 L Glucose 135 H POC Glucose Lactic Acid Calcium Magnesium 1.50 L AST ALT Troponin T Total Protein Albumin LDL Cholesterol Direct Urine WBC (Auto) 03/27/19 03/27/19 03/28/19 10:03 12:08 04:00 WBC 14.5 H RDW 12.7 L Lymph % (Auto) 10.2 L [place] % (Auto) Lymph # [place] # 1.0 H Seg Neutrophils % 82.4 H Seg Neutrophils # 12.0 H POC ABG pH POC ABG pCO2 POC ABG pO2 ABG pO2 ABG HCO3 ABG Base Excess ABG Hemoglobin VBG pH Potassium Chloride Carbon Dioxide BUN Creatinine Glucose POC Glucose 136 H Lactic Acid Calcium Magnesium AST ALT Troponin T 0.040 H D Total Protein Albumin LDL Cholesterol Direct Urine WBC (Auto) 03/28/19 03/28/19 03/29/19 04:00 12:49 05:40 WBC 11.8 H RDW 12.7 L Lymph % (Auto) 36.6 H [place] % (Auto) 12.2 H Lymph # [place] # 1.4 H Seg Neutrophils % Seg Neutrophils # POC ABG pH POC ABG pCO2 POC ABG pO2 ABG pO2 ABG HCO3 ABG Base Excess ABG Hemoglobin VBG pH Potassium Chloride Carbon Dioxide 19 L BUN Creatinine 0.6 L Glucose 119 H POC Glucose 115 H Lactic Acid Calcium Magnesium AST 51 H ALT 97 H Troponin T Total Protein Albumin LDL Cholesterol Direct Urine WBC (Auto) 03/29/19 05:40 WBC RDW Lymph % (Auto) [place] % (Auto) Lymph # [place] # Seg Neutrophils % Seg Neutrophils # POC ABG pH POC ABG pCO2 POC ABG pO2 ABG pO2 ABG HCO3 ABG Base Excess ABG Hemoglobin VBG pH Potassium 3.1 L D Chloride 107.3 H Carbon Dioxide BUN 8 L Creatinine 0.7 L Glucose 101 H POC Glucose Lactic Acid Calcium 8.0 L Magnesium AST ALT 79 H Troponin T Total Protein 6.0 L Albumin 3.4 L LDL Cholesterol Direct Urine WBC (Auto) Chest x-ray: report reviewed, image reviewed
[2019-03-29] MEDS: fentaNYL DRIP Premix 2,000 MCG/100 ML BAG IV SCH (15:00)
[2019-03-29] MEDS: ATIVAN IV PRN ×2 (18:03→23:44)
[2019-03-29] MEDS: DESYREL PO SCH (18:07)
[2019-03-29] MEDS: POTASSIUM CHLORIDE FEEDTUBE SCH ×3 (18:08→21:20)
[2019-03-29] MEDS: ENOXAPARIN SUB-Q SCH (21:15)
[2019-03-29] MEDS: DILAUDID IV PRN (23:44)
--- NOTE | 2019-03-30 03:22 | XRay Report ---
CHEST 1 VIEW INDICATION / CLINICAL INFORMATION: Acute respiratory failure. COMPARISON: 03/27/2019 FINDINGS: SUPPORT DEVICES: Stable, satisfactory device positioning. HEART / MEDIASTINUM: No significant abnormality. LUNGS / PLEURA: Subsegmental atelectasis in both lower lungs persists, there has been slight improvem ent. No pneumothorax. ADDITIONAL FINDINGS: No significant additional findings. IMPRESSION: 1. Minimal improvement of bibasilar subsegmental atelectasis. Signer Name: Roque Culp MD Signed: 03/30/2019 3:17 AM Workstation Name: [email or web address]
[2019-03-30 04:18] LABS: Basophils # (Auto) 0.1 K/mm3 (0.0-0.1); Basophils % (Auto) 0.6 % (0.0-1.8); Eosinophils # (Auto) 0.2 K/mm3 (0.0-0.4); Eosinophils % (Auto) 1.9 % (0.0-4.3); Hematocrit 38.1 % (35.5-45.6); Lymphocytes % (Auto) 37.5 % (13.4-35.0); Mean Corpuscular HGB Conc 34 % (32-34); Mean Corpuscular Volume 92 fl (84-94); Monocytes # (Auto) 1.3 K/mm3 (0.0-0.8); Monocytes % (Auto) 12.5 % (0.0-7.3); Platelet Count 265 K/mm3 (140-440); Red Blood Count 4.16 M/mm3 (3.65-5.03); Red Cell Distribution Width 12.7 % (13.2-15.2)
[2019-03-30] MEDS: ATIVAN IV PRN (04:20)
[2019-03-30] MEDS: DILAUDID IV PRN (04:20)
[2019-03-30 04:37] LABS: Alanine Aminotransferase 79 units/L (7-56); Albumin 3.4 g/dL (3.9-5); BUN/Creatinine Ratio 25; Blood Urea Nitrogen 15 mg/dL (9-20); Calcium 8.6 mg/dL (8.4-10.2); Hemolysis Index 69
[2019-03-30 05:20] LABS: ABG Base Excess -0.9 mmol/L (-2.0-3.0); ABG HCO3 23.6 mmol/L (20.0-26.0); ABG Methemoglobin 0.5 % (0.0-1.5); ABG Oxygen Saturation 99.5 % (95.0-99.0); ABG PCO2 38.6 mm Hg; ABG PH 7.404 pH Units (7.350-7.450)
[2019-03-30 05:29] LABS: ABG PO2 337.5 mm Hg (80.0-90.0)
[2019-03-30] MEDS: KEPPRA 1,500 MG in D5W 100 ML IV SCH ×2 (06:35→17:18)
[2019-03-30] MEDS: PEPCID PO SCH ×2 (10:44→22:19)
[2019-03-30] MEDS: ATIVAN PO SCH ×3 (10:45→22:19)
[2019-03-30] MEDS: VIMPAT PO SCH ×2 (10:45→22:17)
[2019-03-30] MEDS: METOPROLOL PO SCH ×2 (10:45→22:17)
[2019-03-30] MEDS: TOPAMAX PO SCH ×2 (10:46→22:17)
[2019-03-30] MEDS: LaMICtal PO SCH ×2 (10:46→22:17)
[2019-03-30] MEDS: SODIUM CHLORIDE FLUSH SYRINGE 10 ML IV SCH ×2 (10:46→22:20)
--- NOTE | 2019-03-30 12:04 | Progress Note ---
Assessment and Plan cont present cardiac management. consider stress test once medically stabilized. The patient has been seen in conjunction with Dr. Arellano who agrees with the assessment and plan of care. 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 in SR on tele. Objective Last Vital Signs Temp 99.2 F 03/30/19 08:00 Pulse 115 H 03/30/19 11:00 Resp 9 L 03/30/19 11:00 BP 136/75 03/30/19 11:00 Pulse Ox 97 03/30/19 10:07 - Physical Examination General: No Apparent Distress, Other (intubated) HEENT: Positive: Normocephaly, Mucus Membranes Moist Neck: Positive: neck supple, trachea midline Cardiac: Positive: Reg Rate and Rhythm, S1/S2 Lungs: Positive: clear to auscultation Neuro: Positive: Other (intubated, alert) Abdomen: Positive: Soft, Active Bowel Sounds Skin: Positive: Clear. Negative: Rash Musculoskeletal: Normal Range of Motion Extremities: Present: normal. Absent: edema - Labs and Meds Cardiac Enzymes 03/30/19 Range/Units 03:46 AST 41 H (5-40) units/L CBC 03/30/19 Range/Units 03:46 WBC 10.6 (4.5-11.0) K/mm3 RBC 4.16 (3.65-5.03) M/mm3 Hgb 13.0 (11.8-15.2) gm/dl Hct 38.1 (35.5-45.6) % Plt Count 265 (140-440) K/mm3 Lymph # 4.0 (1.2-5.4) K/mm3 [place] # 1.3 H (0.0-0.8) K/mm3 Eos # 0.2 (0.0-0.4) K/mm3 Baso # 0.1 (0.0-0.1) K/mm3 Comprehensive Metabolic Panel 03/30/19 Range/Units 03:46 Sodium 142 (137-145) mmol/L Potassium 3.9 D (3.6-5.0) mmol/L Chloride 108.8 H (98-107) mmol/L Carbon Dioxide 22 (22-30) mmol/L BUN 15 (9-20) mg/dL Creatinine 0.6 L (0.8-1.5) mg/dL Glucose 98 (75-100) mg/dL Calcium 8.6 (8.4-10.2) mg/dL AST 41 H (5-40) units/L ALT 79 H (7-56) units/L Alkaline Phosphatase 70 (35-129) units/L Total Protein 6.4 (6.3-8.2) g/dL Albumin 3.4 L (3.9-5) g/dL - Imaging and Cardiology EKG: report reviewed, image reviewed Echo: report reviewed (EF 60-65%, trace TR, impaired relaxation.) - EKG Sinus rhythms and dysrhythmias: sinus tachycardia AV and intraventricular conduction: right bundle branch block Chamber hypertrophy or enlargement: left ventricular hypertro
--- NOTE | 2019-03-30 19:47 | Progress Note ---
Assessment and Plan Acute hypoxemic respiratory failure, intubated and on MV for 96 hr Continue mechanical ventilation, pulmonary critical following Wean as tolerated and extubate Status epilepticus; Continue with seizure precautions, and antiepileptic medications Neurology following Cardiac arrest; status post CPR Continue supportive care, cardiology evaluated Sepsis, possible aspiration pneumonia; Patient has leukocytosis and lactic acidosis bilateral atelectasis Continue empiric antibiotics follow cultures, pulmonary following Blood and sputum Cx yielded no growth ID evaluation Vagus nerve stimulator: in place Possible anoxic encephalopathy; supportive care Transaminasemia improving with elevated T.bili DVT prophylaxis;Lovenox Monitor closely and adjust the management as needed Follow-up consults and recommendations Critical care time 35 minutes Subjective Date of service: 03/30/19 Principal diagnosis: C-P arrest, Acute resp failure, status epilepticus, MERRF Interval history: 29-year-old male patient with significant past medical history of seizure disorder presented to the emergency room with postictal confusion and seizure, The patient had cardiac arrest in ED .CPR initiated with spontaneous return of circulation. Intubated for protection of airway and hypoxia and was admitted to ICU.. No events. Off Ativan drip and Fentanyl drips. Placed on PSV. Became severely agitated with tachypnea 30's, HR up to 150, diaphoretic. Changed back to ACVC and Fentanyl drip resumed. Asked RN to give 2mg of IV Ativan to calm him down. Weaning in progress. Mother may agree for DNR. Objective - Constitutional Vitals: Vital Signs - 12hr 03/30/19 03/30/19 03/30/19 07:46 07:53 08:00 Temperature 99.2 F Pulse Rate 92 H 95 H 78 Pulse Rate [ 88 From Monitor] Pulse Rate [ 97 H Right Dorsalis Pedis] Respiratory 25 H Rate Respiratory Rate [ARIK] Blood Pressure 95/54 113/81 O2 Sat by Pulse 98 98 Oximetry 03/30/19 03/30/19 03/30/19 09:00 10:00 10:07 Temperature Pulse Rate 80 76 69 Pulse Rate [ From Monitor] Pulse Rate [ Right Dorsalis Pedis] Respiratory 14 14 Rate Respiratory 16 Rate [ARIK] Blood Pressure 113/61 102/51 86/60 O2 Sat by Pulse 97 98 97 Oximetry 03/30/19 03/30/19 03/30/19 10:45 11:00 12:00 Temperature 99.5 F Pulse Rate 96 H 115 H 81 Pulse Rate [ 78 From Monitor] Pulse Rate [ Right Dorsalis Pedis] Respiratory 9 L 22 Rate Respiratory Rate [ARIK] Blood Pressure 117/88 136/75 140/90 O2 Sat by Pulse 98 Oximetry 03/30/19 03/30/19 03/30/19 12:28 13:00 14:00 Temperature Pulse Rate 92 H 102 H 123 H Pulse Rate [ From Monitor] Pulse Rate [ Right Dorsalis Pedis] Respiratory 24 32 H Rate Respiratory Rate [ARIK] Blood Pressure 127/71 119/47 141/77 O2 Sat by Pulse 100 100 99 Oximetry 03/30/19 03/30/19 03/30/19 15:00 16:00 16:39 Temperature 98.2 F Pulse Rate 76 75 Pulse Rate [ 67 From Monitor] Pulse Rate [ Right Dorsalis Pedis] Respiratory 22 21 Rate Respiratory Rate [ARIK] Blood Pressure 96/45 109/47 O2 Sat by Pulse 97 99 100 Oximetry 03/30/19 03/30/19 17:00 18:00 Temperature Pulse Rate 96 H 116 H Pulse Rate [ From Monitor] Pulse Rate [ Right Dorsalis Pedis] Respiratory 16 13 Rate Respiratory Rate [ARIK] Blood Pressure 115/73 135/63 O2 Sat by Pulse 99 100 Oximetry General appearance: Present: no acute distress, well-nourished - EENT Eyes: PERRL, EOM intact ENT: hearing intact, clear oral mucosa Ears: bilateral: normal - Neck Neck: supple, normal ROM - Respiratory Respiratory effort: normal Respiratory: bilateral: CTA, rhonchi - Breasts Breasts: normal - Cardiovascular Heart rate: 88 Rhythm: regular Heart Sounds: Present: S1 & S2. Absent: gallop, rub Extremities: pulses intact, No edema, normal color, Full ROM - Gastrointestinal General gastrointestinal: Present: soft, non-tender, non-distended, normal bowel sounds - Genitourinary Male genitourinary: normal - Integumentary Integumentary: clear, warm, dry - Musculoskeletal Musculoskeletal: generalized weakness - Neurologic Neurologic: moves all extremities - Psychiatric Psychiatric: other (Intubated) - Labs CBC & Chem 7: 03/30/19 03:46 03/30/19 03:46 Labs: Abnormal lab results 03/30/19 03/30/19 03/30/19 Range/Units 03:46 03:46 04:50 RDW 12.7 L (13.2-15.2) % Lymph % (Auto) 37.5 H (13.4-35.0) % [place] % (Auto) 12.5 H (0.0-7.3) % [place] # 1.3 H (0.0-0.8) K/mm3 ABG pO2 337.5 H (80.0-90.0) mm Hg ABG O2 Saturation 99.5 H (95.0-99.0) % ABG Hemoglobin 13.6 L (14.0-18.0) gm/dl Chloride 108.8 H (98-107) mmol/L Creatinine 0.6 L (0.8-1.5) mg/dL POC Glucose (70-105) AST 41 H (5-40) units/L ALT 79 H (7-56) units/L Albumin 3.4 L (3.9-5) g/dL 03/30/19 Range/Units 12:17 RDW (13.2-15.2) % Lymph % (Auto) (13.4-35.0) % [place] % (Auto) (0.0-7.3) % [place] # (0.0-0.8) K/mm3 ABG pO2 (80.0-90.0) mm Hg ABG O2 Saturation (95.0-99.0) % ABG Hemoglobin (14.0-18.0) gm/dl Chloride (98-107) mmol/L Creatinine (0.8-1.5) mg/dL POC Glucose 112 H (70-105) AST (5-40) units/L ALT (7-56) units/L Albumin (3.9-5) g/dL
[2019-03-30] MEDS: ENOXAPARIN SUB-Q SCH (22:15)
--- NOTE | 2019-03-30 23:25 | Progress Note ---
Assessment and Plan Imp: 1. Status epilepticus 2. Seizure d/o 3. Acute respiratory failure, hypoxia 4. S/p CP arrest 5. SIRS 6. MERRF Rec: 1. Had a long discussion with mother by phone and clarified his home regimen have been restarted: Trazodone 50mg QHS, Keppra 1500mg BID, Vimpat 200mg BID, Lamictal 300mg BID, Ativan PO 1mg QID, Klonopin 1mg BID, Topamax 50mg BID, Baclofen 5mg TID 2. Resume home regimen per above; Ativan drip discontinued; stop Fentanyl drip QAM for daily SBT; extubate today as he meets all criteria 3. D/c Steroids 4. D/c ABX and monitor temp/WBC 5. TFs 6. DVT/GI PPx 7. Family considering both DNR status and SNF placement long-term 8. Stop Duonebs given tachycardia CCt 31 minutes No family present today Subjective Date of service: 03/30/19 Principal diagnosis: C-P arrest, Acute resp failure, status epilepticus, MERRF Interval history: No events. Off Ativan drip and Fentanyl drips. Placed on PSV this AM and t olerated well for > 7 hours. Arouses, follows commands. RSBI less than 105. No SOB. Active Medications Acetaminophen (Tylenol) 650 mg PO Q4H PRN PRN Reason: Pain MILD(1-3)/Fever >100.5/ALCARAZ Albuterol (Proventil) 2.5 mg IH Q4HRT PRN PRN Reason: Shortness Of Breath Lipase/Protease/Amylase (Pancreruby Dr 10,500 Unit) 1 each FEEDTUBE PRN PRN PRN Reason: For Clogged Feeding Tube Clonazepam (Klonopin) 1 mg PO BID [facility] Last Admin: 03/30/19 22:16 Dose: 1 mg Documented by: Enoxaparin Sodium (Lovenox) 40 mg SUB-Q QDAY@2200 [facility] Last Admin: 03/30/19 22:15 Dose: 40 mg Documented by: Famotidine (Pepcid) 20 mg PO BID [facility] Last Admin: 03/30/19 22:19 Dose: 20 mg Documented by: Hydromorphone HCl (Dilaudid) 0.5 mg IV Q3H PRN PRN Reason: Pain , Severe (7-10) Last Admin: 03/30/19 04:20 Dose: 0.5 mg Documented by: Fentanyl Citrate (Fentanyl Drip Premix) 2,000 mcg in 100 mls @ 5.5 mls/hr IV TITR [facility]; Protocol Last Titration: 03/30/19 09:30 Dose: Infused Documented by: Levetiracetam 1,500 mg/ (Dextrose) 115 mls @ 400 mls/hr IV Q12H [facility] Stop: 03/30/19 23:59 Last Admin: 03/30/19 17:18 Dose: 400 mls/hr Documented by: Lacosamide (Vimpat) 200 mg PO Q12HR [facility] Last Admin: 03/30/19 22:17 Dose: 200 mg Documented by: Lamotrigine (Lamictal) 300 mg PO BID [facility] Last Admin: 03/30/19 22:17 Dose: 300 mg Documented by: Levetiracetam (Keppra) 1,500 mg PO BID [facility] Lorazepam (Ativan) 1 mg PO QID [facility] Last Admin: 03/30/19 22:19 Dose: 1 mg Documented by: Lorazepam (Ativan) 2 mg IV Q4H PRN PRN Reason: Agitation Last Admin: 03/30/19 04:20 Dose: 2 mg Documented by: Metoclopramide HCl (Reglan) 10 mg IV Q6H PRN PRN Reason: Nausea And Vomiting Metoprolol Tartrate (Lopressor) 12.5 mg PO BID [facility] Last Admin: 03/30/19 22:17 Dose: 12.5 mg Documented by: Ondansetron HCl (Zofran) 4 mg IV Q3H PRN PRN Reason: Nausea And Vomiting Simple Syrup (Simple Syrup) 15 ml FEEDTUBE PRN PRN PRN Reason: Hypoglycemia Simple Syrup (Simple Syrup) 30 ml FEEDTUBE PRN PRN PRN Reason: Hypoglycemia Sodium Bicarbonate (Sodium Bicarbonate) 325 mg FEEDTUBE PRN PRN PRN Reason: For Clogged Feeding Tube Sodium Chloride (Sodium Chloride Flush Syringe 10 Ml) 10 ml IV BID [facility] Last Admin: 03/30/19 22:20 Dose: 10 ml Documented by: Sodium Chloride (Sodium Chloride Flush Syringe 10 Ml) 10 ml IV PRN PRN PRN Reason: LINE FLUSH Last Admin: 03/26/19 22:28 Dose: 10 ml Documented by: Topiramate (Topamax) 50 mg PO Q12HR [facility] Last Admin: 03/30/19 22:17 Dose: 50 mg Documented by: Trazodone HCl (Desyrel) 50 mg PO QPM [facility] Last Admin: 03/29/19 18:07 Dose: 50 mg Documented by: Objective Vital Signs - 12hr 03/30/19 03/30/19 03/30/19 12:00 12:28 13:00 Temperature 99.5 F Pulse Rate 81 92 H 102 H Pulse Rate [ 78 From Monitor] Respiratory 22 24 Rate Blood Pressure 140/90 127/71 119/47 O2 Sat by Pulse 98 100 100 Oximetry 03/30/19 03/30/19 03/30/19 14:00 15:00 16:00 Temperature 98.2 F Pulse Rate 123 H 76 75 Pulse Rate [ 67 From Monitor] Respiratory 32 H 22 21 Rate Blood Pressure 141/77 96/45 109/47 O2 Sat by Pulse 99 97 99 Oximetry 03/30/19 03/30/19 03/30/19 16:39 17:00 18:00 Temperature Pulse Rate 96 H 116 H Pulse Rate [ From Monitor] Respiratory 16 13 Rate Blood Pressure 115/73 135/63 O2 Sat by Pulse 100 99 100 Oximetry 03/30/19 03/30/19 03/30/19 19:00 19:46 20:00 Temperature 99.9 F H Pulse Rate 114 H 75 Pulse Rate [ From Monitor] Respiratory 18 25 H Rate Blood Pressure 126/72 112/46 O2 Sat by Pulse 98 100 99 Oximetry 03/30/19 03/30/19 21:00 22:17 Temperature Pulse Rate 63 93 H Pulse Rate [ From Monitor] Respiratory 26 H Rate Blood Pressure 103/51 143/77 O2 Sat by Pulse 98 Oximetry Constitutional: other (intubated, critically ill on vent) Eyes: non-icteric ENT: oropharynx moist Neck: supple Effort: normal Ascultation: Bilateral: clear Cardiovascular: other (tachy, RR; no mrg) Gastrointestinal: normoactive bowel sounds, soft, non-tender, non-distended Integumentary: normal Extremities: no cyanosis, no edema, pink and warm Neurologic: other (wakes up, moves all extremities and follows commands) Psychiatric: mood appropriate, affect normal CBC and BMP: 10/15/19 03:46 03/30/19 03:46 ABG, PT/INR, D-dimer: ABG POC ABG pH 7.374 (7.35-7.45) 03/30/19 10: ABG pH 7.404 pH Units (7.350-7.450) 03/30/19 04:50 POC ABG pCO2 40.1 (35-45) 03/30/19 10: ABG pCO2 38.6 mm Hg 03/30/19 04:50 POC ABG pO2 97 (80-105) 03/30/19 10: ABG pO2 337.5 mm Hg (80.0-90.0) H 03/30/19 04:50 POC ABG HCO3 23.4 (22-26 mml/L) 03/30/19 10: POC ABG Total CO2 25 (23-27mmol/L) 03/30/19 10:19 POC ABG O2 Sat 97 03/30/19 10: ABG O2 Saturation 99.5 % (95.0-99.0) H 03/30/19 04:50 Abnormal lab findings: Abnormal Labs 03/25/19 03/25/19 03/25/19 17:56 17:56 17:56 WBC 16.4 H RDW 12.6 L Lymph % (Auto) 13.3 L [place] % (Auto) Lymph # [place] # Seg Neutrophils % 80.8 H Seg Neutrophils # 13.3 H POC ABG pH POC ABG pCO2 POC ABG pO2 ABG pO2 ABG HCO3 ABG O2 Saturation ABG Base Excess ABG Hemoglobin VBG pH Potassium 3.3 L Chloride 108.6 H Carbon Dioxide 19 L BUN Creatinine Glucose 182 H POC Glucose Lactic Acid 4.80 H* Calcium 8.3 L Magnesium AST 41 H ALT Troponin T 0.034 H Total Protein Albumin LDL Cholesterol Direct 137 H Urine WBC (Auto) 03/25/19 03/25/19 03/25/19 18:04 18:13 18:39 WBC RDW Lymph % (Auto) [place] % (Auto) Lymph # [place] # Seg Neutrophils % Seg Neutrophils # POC ABG pH 7.277 L POC ABG pCO2 POC ABG pO2 378 H ABG pO2 ABG HCO3 ABG O2 Saturation ABG Base Excess ABG Hemoglobin VBG pH 7.231 L Potassium Chloride Carbon Dioxide BUN Creatinine Glucose POC Glucose Lactic Acid Calcium Magnesium AST ALT Troponin T Total Protein Albumin LDL Cholesterol Direct Urine WBC (Auto) 8.0 H 03/25/19 03/25/19 03/25/19 19:36 20:29 22:54 WBC RDW Lymph % (Auto) [place] % (Auto) Lymph # [place] # Seg Neutrophils % Seg Neutrophils # POC ABG pH POC ABG pCO2 POC ABG pO2 ABG pO2 ABG HCO3 ABG O2 Saturation ABG Base Excess ABG Hemoglobin VBG pH Potassium Chloride Carbon Dioxide BUN Creatinine Glucose POC Glucose Lactic Acid 2.40 H* 2.30 H* Calcium Magnesium AST ALT Troponin T 0.077 H D Total Protein Albumin LDL Cholesterol Direct Urine WBC (Auto) 03/25/19 03/26/19 03/26/19 22:54 04:30 04:30 WBC 14.1 H RDW 12.5 L Lymph % (Auto) 7.0 L [place] % (Auto) Lymph # 1.0 L [place] # Seg Neutrophils % 89.4 H Seg Neutrophils # 12.6 H POC ABG pH POC ABG pCO2 POC ABG pO2 ABG pO2 ABG HCO3 ABG O2 Saturation ABG Base Excess ABG Hemoglobin VBG pH Potassium Chloride 111.1 H Carbon Dioxide 19 L BUN Creatinine 0.7 L Glucose 140 H POC Glucose Lactic Acid 2.10 H* Calcium Magnesium AST ALT Troponin T Total Protein Albumin LDL Cholesterol Direct Urine WBC (Auto) 03/26/19 03/26/19 03/26/19 05:00 12:29 16:24 WBC RDW Lymph % (Auto) [place] % (Auto) Lymph # [place] # Seg Neutrophils % Seg Neutrophils # POC ABG pH POC ABG pCO2 POC ABG pO2 ABG pO2 134.8 H ABG HCO3 16.8 L ABG O2 Saturation ABG Base Excess -6.8 L ABG Hemoglobin 13.8 L VBG pH Potassium Chloride Carbon Dioxide BUN Creatinine Glucose POC Glucose 142 H 119 H Lactic Acid Calcium Magnesium AST ALT Troponin T Total Protein Albumin LDL Cholesterol Direct Urine WBC (Auto) 03/27/19 03/27/19 03/27/19 05:00 05:00 05:47 WBC 19.1 H RDW 12.9 L Lymph % (Auto) 7.1 L [place] % (Auto) Lymph # [place] # 1.1 H Seg Neutrophils % 87.1 H Seg Neutrophils # 16.6 H POC ABG pH POC ABG pCO2 31.7 L POC ABG pO2 ABG pO2 ABG HCO3 ABG O2 Saturation ABG Base Excess ABG Hemoglobin VBG pH Potassium Chloride 110.0 H Carbon Dioxide 19 L BUN 6 L Creatinine 0.6 L Glucose 135 H POC Glucose Lactic Acid Calcium Magnesium 1.50 L AST ALT Troponin T Total Protein Albumin LDL Cholesterol Direct Urine WBC (Auto) 03/27/19 03/27/19 03/28/19 10:03 12:08 04:00 WBC 14.5 H RDW 12.7 L Lymph % (Auto) 10.2 L [place] % (Auto) Lymph # [place] # 1.0 H Seg Neutrophils % 82.4 H Seg Neutrophils # 12.0 H POC ABG pH POC ABG pCO2 POC ABG pO2 ABG pO2 ABG HCO3 ABG O2 Saturation ABG Base Excess ABG Hemoglobin VBG pH Potassium Chloride Carbon Dioxide BUN Creatinine Glucose POC Glucose 136 H Lactic Acid Calcium Magnesium AST ALT Troponin T 0.040 H D Total Protein Albumin LDL Cholesterol Direct Urine WBC (Auto) 03/28/19 03/28/19 03/29/19 04:00 12:49 05:40 WBC 11.8 H RDW 12.7 L Lymph % (Auto) 36.6 H [place] % (Auto) 12.2 H Lymph # [place] # 1.4 H Seg Neutrophils % Seg Neutrophils # POC ABG pH POC ABG pCO2 POC ABG pO2 ABG pO2 ABG HCO3 ABG O2 Saturation ABG Base Excess ABG Hemoglobin VBG pH Potassium Chloride Carbon Dioxide 19 L BUN Creatinine 0.6 L Glucose 119 H POC Glucose 115 H Lactic Acid Calcium Magnesium AST 51 H ALT 97 H Troponin T Total Protein Albumin LDL Cholesterol Direct Urine WBC (Auto) 03/29/19 03/30/19 03/30/19 05:40 03:46 03:46 WBC RDW 12.7 L Lymph % (Auto) 37.5 H [place] % (Auto) 12.5 H Lymph # [place] # 1.3 H Seg Neutrophils % Seg Neutrophils # POC ABG pH POC ABG pCO2 POC ABG pO2 ABG pO2 ABG HCO3 ABG O2 Saturation ABG Base Excess ABG Hemoglobin VBG pH Potassium 3.1 L D Chloride 107.3 H 108.8 H Carbon Dioxide BUN 8 L Creatinine 0.7 L 0.6 L Glucose 101 H POC Glucose Lactic Acid Calcium 8.0 L Magnesium AST 41 H ALT 79 H 79 H Troponin T Total Protein 6.0 L Albumin 3.4 L 3.4 L LDL Cholesterol Direct Urine WBC (Auto) 03/30/19 03/30/19 04:50 12:17 WBC RDW Lymph % (Auto) [place] % (Auto) Lymph # [place] # Seg Neutrophils % Seg Neutrophils # POC ABG pH POC ABG pCO2 POC ABG pO2 ABG pO2 337.5 H ABG HCO3 ABG O2 Saturation 99.5 H ABG Base Excess ABG Hemoglobin 13.6 L VBG pH Potassium Chloride Carbon Dioxide BUN Creatinine Glucose POC Glucose 112 H Lactic Acid Calcium Magnesium AST ALT Troponin T Total Protein Albumin LDL Cholesterol Direct Urine WBC (Auto) Chest x-ray: report reviewed, image reviewed
[2019-03-31] MEDS: ATIVAN IV PRN (02:27)
[2019-03-31 07:04] LABS: BUN/Creatinine Ratio 17; Blood Urea Nitrogen 10 mg/dL (9-20); Calcium 9.4 mg/dL (8.4-10.2); Hemolysis Index 30
[2019-03-31] MEDS: ATIVAN PO SCH ×5 (07:41→22:46)
[2019-03-31] MEDS: DESYREL PO SCH ×2 (07:41→17:32)
[2019-03-31] MEDS: METOPROLOL PO SCH ×2 (10:08→22:45)
[2019-03-31] MEDS: VIMPAT PO SCH ×2 (10:08→22:46)
[2019-03-31] MEDS: TOPAMAX PO SCH ×2 (10:08→22:55)
[2019-03-31] MEDS: LaMICtal PO SCH ×2 (10:08→22:47)
[2019-03-31] MEDS: PEPCID PO SCH ×2 (10:08→22:38)
[2019-03-31] MEDS: KEPPRA PO SCH ×2 (10:09→22:39)
[2019-03-31] MEDS: SODIUM CHLORIDE FLUSH SYRINGE 10 ML IV SCH ×2 (10:10→22:48)
--- NOTE | 2019-03-31 10:28 | Progress Note ---
Assessment and Plan cont present cardiac management. no plans to pursue ischemic evaluation as inpatient as we suspect his cardiac arrest was secondary to status epilepticus and respiratory arrest. tte with no significant abnormalities. can consider stress test as OP. Pt may tx out of CCU to telemetry from cardiology standpoint. The patient has been seen in conjunction with Dr. Arellano who agrees with the assessment and plan of care. 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 in SR on tele. Objective Last Vital Signs Temp 98.2 F 03/31/19 08:00 Pulse 81 03/31/19 10:08 Resp 26 H 03/31/19 09:00 BP 137/72 03/31/19 10:08 Pulse Ox 99 03/31/19 09:00 - Physical Examination General: No Apparent Distress HEENT: Positive: Normocephaly, Mucus Membranes Moist Neck: Positive: neck supple, trachea midline Cardiac: Positive: Reg Rate and Rhythm, S1/S2 Lungs: Positive: Decreased Breath Sounds Abdomen: Positive: Soft, Active Bowel Sounds Skin: Positive: Clear. Negative: Rash Musculoskeletal: Normal Range of Motion Extremities: Present: normal. Absent: edema - Labs and Meds Comprehensive Metabolic Panel 03/31/19 Range/Units 06:34 Sodium 140 (137-145) mmol/L Potassium 4.3 (3.6-5.0) mmol/L Chloride 102.9 (98-107) mmol/L Carbon Dioxide 22 (22-30) mmol/L BUN 10 (9-20) mg/dL Creatinine 0.6 L (0.8-1.5) mg/dL Glucose 81 (75-100) mg/dL Calcium 9.4 (8.4-10.2) mg/dL - Imaging and Cardiology EKG: report reviewed, image reviewed Echo: report reviewed (EF 60-65%, trace TR, impaired relaxation.) - Telemetry EKG Rhythm: Sinus Rhythm - EKG Sinus rhythms and dysrhythmias: sinus tachycardia AV and intraventricular conduction: right bundle branch block Chamber hypertrophy or enlargement: left ventricular hypertro
[2019-03-31] MEDS: ENOXAPARIN SUB-Q SCH (22:39)
--- NOTE | 2019-03-31 22:39 | Progress Note ---
Assessment and Plan Imp: 1. Status epilepticus 2. Seizure d/o 3. Acute respiratory failure, hypoxia 4. S/p CP arrest 5. SIRS 6. MERRF Rec: 1. Had a long discussion with mother by phone and clarified his home regimen have been restarted: Trazodone 50mg QHS, Keppra 1500mg BID, Vimpat 200mg BID, Lamictal 300mg BID, Ativan PO 1mg QID, Klonopin 1mg BID, Topamax 50mg BID, Baclofen 5mg TID 2. Advance diet 3. Transfer to floor today 4. D/c planning No family present today Subjective Date of service: 03/31/19 Principal diagnosis: C-P arrest, Acute resp failure, status epilepticus, MERRF Interval history: No events. Extubated. No seizures. Poor historian. No complaints. Active Medications Acetaminophen (Tylenol) 650 mg PO Q4H PRN PRN Reason: Pain MILD(1-3)/Fever >100.5/ALCARAZ Albuterol (Proventil) 2.5 mg IH Q4HRT PRN PRN Reason: Shortness Of Breath Clonazepam (Klonopin) 1 mg PO BID [facility] Last Admin: 03/31/19 13:51 Dose: 1 mg Documented by: Enoxaparin Sodium (Lovenox) 40 mg SUB-Q QDAY@2200 [facility] Last Admin: 03/30/19 22:15 Dose: 40 mg Documented by: Famotidine (Pepcid) 20 mg PO BID [facility] Last Admin: 03/31/19 10:08 Dose: 20 mg Documented by: Hydromorphone HCl (Dilaudid) 0.5 mg IV Q3H PRN PRN Reason: Pain , Severe (7-10) Last Admin: 03/30/19 04:20 Dose: 0.5 mg Documented by: Lacosamide (Vimpat) 200 mg PO Q12HR [facility] Last Admin: 03/31/19 10:08 Dose: 200 mg Documented by: Lamotrigine (Lamictal) 300 mg PO BID [facility] Last Admin: 03/31/19 10:08 Dose: 300 mg Documented by: Levetiracetam (Keppra) 1,500 mg PO BID [facility] Last Admin: 03/31/19 10:09 Dose: 1,500 mg Documented by: Lorazepam (Ativan) 1 mg PO QID [facility] Last Admin: 03/31/19 17:31 Dose: 1 mg Documented by: Lorazepam (Ativan) 2 mg IV Q4H PRN PRN Reason: Agitation Last Admin: 03/31/19 02:27 Dose: 2 mg Documented by: Metoclopramide HCl (Reglan) 10 mg IV Q6H PRN PRN Reason: Nausea And Vomiting Metoprolol Tartrate (Lopressor) 12.5 mg PO BID [facility] Last Admin: 03/31/19 10:08 Dose: 12.5 mg Documented by: Ondansetron HCl (Zofran) 4 mg IV Q3H PRN PRN Reason: Nausea And Vomiting Sodium Chloride (Sodium Chloride Flush Syringe 10 Ml) 10 ml IV BID [facility] Last Admin: 03/31/19 10:10 Dose: 10 ml Documented by: Sodium Chloride (Sodium Chloride Flush Syringe 10 Ml) 10 ml IV PRN PRN PRN Reason: LINE FLUSH Last Admin: 03/26/19 22:28 Dose: 10 ml Documented by: Topiramate (Topamax) 50 mg PO Q12HR [facility] Last Admin: 03/31/19 10:08 Dose: 50 mg Documented by: Trazodone HCl (Desyrel) 50 mg PO QPM [facility] Last Admin: 03/31/19 17:32 Dose: 50 mg Documented by: Objective Vital Signs - 12hr 03/31/19 03/31/19 03/31/19 11:00 12:00 13:00 Temperature 98.7 F Pulse Rate 94 H 93 H 84 Pulse Rate [ 93 H From Monitor] Respiratory 25 H 25 H 30 H Rate Blood Pressure 147/107 161/94 146/65 O2 Sat by Pulse 99 98 98 Oximetry 03/31/19 03/31/19 03/31/19 13:40 16:00 17:31 Temperature Pulse Rate 72 87 69 Pulse Rate [ From Monitor] Respiratory 32 H Rate Blood Pressure 139/60 113/56 O2 Sat by Pulse 96 95 Oximetry 03/31/19 03/31/19 19:53 22:00 Temperature 98.5 F Pulse Rate 92 H Pulse Rate [ From Monitor] Respiratory 18 Rate Blood Pressure 150/71 O2 Sat by Pulse 93 95 Oximetry Constitutional: no acute distress, alert Eyes: non-icteric ENT: oropharynx moist Neck: supple Effort: normal Ascultation: Bilateral: clear Cardiovascular: other (tachy, RR; no mrg) Gastrointestinal: normoactive bowel sounds, soft, non-tender, non-distended Integumentary: normal Extremities: no cyanosis, no edema, pink and warm Neurologic: other (awake, moves all extremities and follows commands) Psychiatric: mood appropriate, affect normal CBC and BMP: 03/30/19 03:46 03/31/19 06:34 ABG, PT/INR, D-dimer: ABG POC ABG pH 7.374 (7.35-7.45) 03/30/19 10: ABG pH 7.404 pH Units (7.350-7.450) 03/30/19 04:50 POC ABG pCO2 40.1 (35-45) 03/30/19 10: ABG pCO2 38.6 mm Hg 03/30/19 04:50 POC ABG pO2 97 (80-105) 03/30/19 10: ABG pO2 337.5 mm Hg (80.0-90.0) H 03/30/19 04:50 POC ABG HCO3 23.4 (22-26 mml/L) 03/30/19 10:19 POC ABG Total CO2 25 (23-27mmol/L) 03/30/19 10:19 POC ABG O2 Sat 97 03/30/19 10: ABG O2 Saturation 99.5 % (95.0-99.0) H 03/30/19 04:50 Abnormal lab findings: Abnormal Labs 03/25/19 03/25/19 03/25/19 17:56 17:56 17:56 WBC 16.4 H RDW 12.6 L Lymph % (Auto) 13.3 L [place] % (Auto) Lymph # [place] # Seg Neutrophils % 80.8 H Seg Neutrophils # 13.3 H POC ABG pH POC ABG pCO2 POC ABG pO2 ABG pO2 ABG HCO3 ABG O2 Saturation ABG Base Excess ABG Hemoglobin VBG pH Potassium 3.3 L Chloride 108.6 H Carbon Dioxide 19 L BUN Creatinine Glucose 182 H POC Glucose Lactic Acid 4.80 H* Calcium 8.3 L Magnesium AST 41 H ALT Troponin T 0.034 H Total Protein Albumin LDL Cholesterol Direct 137 H Urine WBC (Auto) 03/25/19 03/25/19 03/25/19 18:04 18:13 18:39 WBC RDW Lymph % (Auto) [place] % (Auto) Lymph # [place] # Seg Neutrophils % Seg Neutrophils # POC ABG pH 7.277 L POC ABG pCO2 POC ABG pO2 378 H ABG pO2 ABG HCO3 ABG O2 Saturation ABG Base Excess ABG Hemoglobin VBG pH 7.231 L Potassium Chloride Carbon Dioxide BUN Creatinine Glucose POC Glucose Lactic Acid Calcium Magnesium AST ALT Troponin T Total Protein Albumin LDL Cholesterol Direct Urine WBC (Auto) 8.0 H 03/25/19 03/25/19 03/25/19 19:36 20:29 22:54 WBC RDW Lymph % (Auto) [place] % (Auto) Lymph # [place] # Seg Neutrophils % Seg Neutrophils # POC ABG pH POC ABG pCO2 POC ABG pO2 ABG pO2 ABG HCO3 ABG O2 Saturation ABG Base Excess ABG Hemoglobin VBG pH Potassium Chloride Carbon Dioxide BUN Creatinine Glucose POC Glucose Lactic Acid 2.40 H* 2.30 H* Calcium Magnesium AST ALT Troponin T 0.077 H D Total Protein Albumin LDL Cholesterol Direct Urine WBC (Auto) 03/25/19 03/26/19 03/26/19 22:54 04:30 04:30 WBC 14.1 H RDW 12.5 L Lymph % (Auto) 7.0 L [place] % (Auto) Lymph # 1.0 L [place] # Seg Neutrophils % 89.4 H Seg Neutrophils # 12.6 H POC ABG pH POC ABG pCO2 POC ABG pO2 ABG pO2 ABG HCO3 ABG O2 Saturation ABG Base Excess ABG Hemoglobin VBG pH Potassium Chloride 111.1 H Carbon Dioxide 19 L BUN Creatinine 0.7 L Glucose 140 H POC Glucose Lactic Acid 2.10 H* Calcium Magnesium AST ALT Troponin T Total Protein Albumin LDL Cholesterol Direct Urine WBC (Auto) 03/26/19 03/26/19 03/26/19 05:00 12:29 16:24 WBC RDW Lymph % (Auto) [place] % (Auto) Lymph # [place] # Seg Neutrophils % Seg Neutrophils # POC ABG pH POC ABG pCO2 POC ABG pO2 ABG pO2 134.8 H ABG HCO3 16.8 L ABG O2 Saturation ABG Base Excess -6.8 L ABG Hemoglobin 13.8 L VBG pH Potassium Chloride Carbon Dioxide BUN Creatinine Glucose POC Glucose 142 H 119 H Lactic Acid Calcium Magnesium AST ALT Troponin T Total Protein Albumin LDL Cholesterol Direct Urine WBC (Auto) 10/12/19 10/12/19 10/12/19 05:00 05:00 05:47 WBC 19.1 H RDW 12.9 L Lymph % (Auto) 7.1 L [place] % (Auto) Lymph # [place] # 1.1 H Seg Neutrophils % 87.1 H Seg Neutrophils # 16.6 H POC ABG pH POC ABG pCO2 31.7 L POC ABG pO2 ABG pO2 ABG HCO3 ABG O2 Saturation ABG Base Excess ABG Hemoglobin VBG pH Potassium Chloride 110.0 H Carbon Dioxide 19 L BUN 6 L Creatinine 0.6 L Glucose 135 H POC Glucose Lactic Acid Calcium Magnesium 1.50 L AST ALT Troponin T Total Protein Albumin LDL Cholesterol Direct Urine WBC (Auto) 03/27/19 03/27/19 03/28/19 10:03 12:08 04:00 WBC 14.5 H RDW 12.7 L Lymph % (Auto) 10.2 L [place] % (Auto) Lymph # [place] # 1.0 H Seg Neutrophils % 82.4 H Seg Neutrophils # 12.0 H POC ABG pH POC ABG pCO2 POC ABG pO2 ABG pO2 ABG HCO3 ABG O2 Saturation ABG Base Excess ABG Hemoglobin VBG pH Potassium Chloride Carbon Dioxide BUN Creatinine Glucose POC Glucose 136 H Lactic Acid Calcium Magnesium AST ALT Troponin T 0.040 H D Total Protein Albumin LDL Cholesterol Direct Urine WBC (Auto) 03/28/19 03/28/19 03/29/19 04:00 12:49 05:40 WBC 11.8 H RDW 12.7 L Lymph % (Auto) 36.6 H [place] % (Auto) 12.2 H Lymph # [place] # 1.4 H Seg Neutrophils % Seg Neutrophils # POC ABG pH POC ABG pCO2 POC ABG pO2 ABG pO2 ABG HCO3 ABG O2 Saturation ABG Base Excess ABG Hemoglobin VBG pH Potassium Chloride Carbon Dioxide 19 L BUN Creatinine 0.6 L Glucose 119 H POC Glucose 115 H Lactic Acid Calcium Magnesium AST 51 H ALT 97 H Troponin T Total Protein Albumin LDL Cholesterol Direct Urine WBC (Auto) 03/29/19 03/30/19 03/30/19 05:40 03:46 03:46 WBC RDW 12.7 L Lymph % (Auto) 37.5 H [place] % (Auto) 12.5 H Lymph # [place] # 1.3 H Seg Neutrophils % Seg Neutrophils # POC ABG pH POC ABG pCO2 POC ABG pO2 ABG pO2 ABG HCO3 ABG O2 Saturation ABG Base Excess ABG Hemoglobin VBG pH Potassium 3.1 L D Chloride 107.3 H 108.8 H Carbon Dioxide BUN 8 L Creatinine 0.7 L 0.6 L Glucose 101 H POC Glucose Lactic Acid Calcium 8.0 L Magnesium AST 41 H ALT 79 H 79 H Troponin T Total Protein 6.0 L Albumin 3.4 L 3.4 L LDL Cholesterol Direct Urine WBC (Auto) 03/30/19 03/30/19 03/31/19 04:50 12:17 06:34 WBC RDW Lymph % (Auto) [place] % (Auto) Lymph # [place] # Seg Neutrophils % Seg Neutrophils # POC ABG pH POC ABG pCO2 POC ABG pO2 ABG pO2 337.5 H ABG HCO3 ABG O2 Saturation 99.5 H ABG Base Excess ABG Hemoglobin 13.6 L VBG pH Potassium Chloride Carbon Dioxide BUN Creatinine 0.6 L Glucose POC Glucose 112 H Lactic Acid Calcium Magnesium AST ALT Troponin T Total Protein Albumin LDL Cholesterol Direct Urine WBC (Auto) Chest x-ray: report reviewed, image reviewed
[2019-04-01] MEDS: ATIVAN IV PRN ×2 (02:50→04:49)
[2019-04-01] MEDS: PEPCID PO SCH ×2 (09:54→22:10)
[2019-04-01] MEDS: TOPAMAX PO SCH ×2 (09:54→22:11)
[2019-04-01] MEDS: KEPPRA PO SCH ×2 (09:54→22:10)
[2019-04-01] MEDS: METOPROLOL PO SCH ×2 (09:54→22:12)
[2019-04-01] MEDS: LaMICtal PO SCH ×2 (09:58→22:10)
[2019-04-01] MEDS: VIMPAT PO SCH ×2 (09:58→22:10)
[2019-04-01] MEDS: ATIVAN PO SCH ×4 (09:58→22:11)
[2019-04-01] MEDS: SODIUM CHLORIDE FLUSH SYRINGE 10 ML IV SCH ×2 (09:59→22:11)
--- NOTE | 2019-04-01 10:34 | Progress Note ---
Assessment and Plan cont present cardiac management. no plans to pursue ischemic evaluation as inpatient as we suspect his cardiac arrest was secondary to status epilepticus and respiratory arrest. tte with no significant abnormalities. can consider stress test as OP. Nothing further to add from cardiac perspective at this time. Will sign off. Recommend pt follow up in our office with Dr. Godoy within 1-2 weeks of hospital discharge ([phone]). The patient has been seen in conjunction with Dr. Arellano who agrees with the assessment and plan of care. 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 in SR on tele. Objective Last Vital Signs Temp 98.4 F 04/01/19 08:18 Pulse 89 04/01/19 09:54 Resp 18 04/01/19 08:18 BP 129/76 04/01/19 09:54 Pulse Ox 99 04/01/19 08:18 - Physical Examination General: No Apparent Distress HEENT: Positive: Normocephaly, Mucus Membranes Moist Neck: Positive: neck supple, trachea midline Cardiac: Positive: Reg Rate and Rhythm, S1/S2 Lungs: Positive: Decreased Breath Sounds Neuro: Positive: Other (intubated, alert) Abdomen: Positive: Soft, Active Bowel Sounds Skin: Positive: Clear. Negative: Rash Musculoskeletal: Normal Range of Motion Extremities: Present: normal. Absent: edema - Imaging and Cardiology EKG: report reviewed, image reviewed Echo: report reviewed (EF 60-65%, trace TR, impaired relaxation.) - EKG Sinus rhythms and dysrhythmias: sinus tachycardia AV and intraventricular conduction: right bundle branch block Chamber hypertrophy or enlargement: left ventricular hypertro
--- NOTE | 2019-04-01 12:09 | Progress Note ---
Assessment and Plan Assessment and plan: 29-year-old man with history of Down syndrome, mental retardation and seizure disorder who was brought to the hospital for prolonged seizure. Mother stated that he was sitting for a long time and then called EMS. When EMS arrived he had another seizure went into cardiac arrest. Patient received CPR and epinephrine and had ROS seen. He was intubated for airway protection and put in the ICU Status epilepticus Optimize AED, vagus stimulator in placer, neuro input appreciated Drug screen was positive for PCP, likely a false positive. sepsis/aspiration pneumonia cont abx Acute hypoxic respiratory failure on mechanical ventilator extubated on 03/30, was due to seizure, improving sp cardiac arrest, was due to seizure no further wo needed, cardiology input appreciated dvt ppx, scds and lovenox History Interval history: Review of systems Constitutional: No fevers, no malaise, no joint pains CVS: No chest pain, no orthopnea, no dyspnea on exertion, no pedal edema GI: No abdominal pain, no diarrhea, no vomiting, no constipation Respiratory: no wheezing, no coughing Hospitalist Physical - Physical exam Narrative exam: General.: Appears well, no distress, nontoxic, Trisomy 21 facial appearance HEENT: Moist mucous membranes, extraocular muscles intact, no lymphadenopathy Neck: supple Cardiac: S1-S2 heard Lungs: clear to auscultation bilaterally Abdomen: soft , nontender, nondistended, bowel sounds positive Extremities: no edema clubbing or cyanosis Skin: no rash or lesions Neurologic: no gross focal deficits, Cognitive deficits due to MR Psych: calm, and cooperative - Constitutional Vitals: Temp Pulse Resp BP Pulse Ox 98.4 F 89 18 129/76 98 04/01/19 08:18 04/01/19 09:54 04/01/19 08:18 04/01/19 09:54 04/01/19 10:00 General appearance: Present: no acute distress, well-nourished Results - Labs CBC & Chem 7: 03/30/19 03:46 03/31/19 06:34 Labs: Laboratory Last Values WBC 10.6 K/mm3 (4.5-11.0) 03/30/19 03:46 RBC 4.16 M/mm3 (3.65-5.03) 03/30/19 03:46 Hgb 13.0 gm/dl (11.8-15.2) 03/30/19 03:46 Hct 38.1 % (35.5-45.6) 03/30/19 03:46 MCV 92 fl (84-94) 03/30/19 03:46 MCH 31 pg (28-32) 03/30/19 03:46 MCHC 34 % (32-34) 03/30/19 03:46 RDW 12.7 % (13.2-15.2) L 03/30/19 03:46 Plt Count 265 K/mm3 (140-440) 03/30/19 03:46 Lymph % (Auto) 37.5 % (13.4-35.0) H 03/30/19 03:46 [place] % (Auto) 12.5 % (0.0-7.3) H 03/30/19 03:46 Eos % (Auto) 1.9 % (0.0-4.3) 03/30/19 03:46 Baso % (Auto) 0.6 % (0.0-1.8) 03/30/19 03:46 Lymph # 4.0 K/mm3 (1.2-5.4) 03/30/19 03:46 [place] # 1.3 K/mm3 (0.0-0.8) H 03/30/19 03:46 Eos # 0.2 K/mm3 (0.0-0.4) 03/30/19 03:46 Baso # 0.1 K/mm3 (0.0-0.1) 03/30/19 03:46 Seg Neutrophils % 47.5 % (40.0-70.0) 03/30/19 03:46 Seg Neutrophils # 5.0 K/mm3 (1.8-7.7) 03/30/19 03:46 POC ABG pH 7.374 (7.35-7.45) 03/30/19 10: ABG pH 7.404 pH Units (7.350-7.450) 03/30/19 04:50 POC ABG pCO2 40.1 (35-45) 03/30/19 10: ABG pCO2 38.6 mm Hg 03/30/19 04:50 POC ABG pO2 97 (80-105) 03/30/19 10: ABG pO2 337.5 mm Hg (80.0-90.0) H 03/30/19 04:50 POC ABG HCO3 23.4 (22-26 mml/L) 03/30/19 10:19 ABG HCO3 23.6 mmol/L (20.0-26.0) 03/30/19 04:50 POC ABG Total CO2 25 (23-27mmol/L) 03/30/19 10:19 POC ABG O2 Sat 97 03/30/19 10: ABG O2 Saturation 99.5 % (95.0-99.0) H 03/30/19 04:50 ABG O2 Content 19.5 (0.0-44) 03/30/19 04:50 POC ABG Base Excess -2 ((-2) - (+3)mmol/L) 03/30/19 10: ABG Base Excess -0.9 mmol/L (-2.0-3.0) 03/30/19 04:50 ABG Hemoglobin 13.6 gm/dl (14.0-18.0) L 03/30/19 04:50 ABG Carboxyhemoglobin 1.2 % (0.0-5.0) 03/30/19 04:50 ABG Methemoglobin 0.5 % (0.0-1.5) 03/30/19 04:50 VBG pH 7.231 (7.320-7.420) L 03/25/19 18:04 Oxyhemoglobin 97.8 % (95.0-99.0) 03/30/19 04:50 FiO2 25 % 03/30/19 10:19 Sodium 140 mmol/L (137-145) 03/31/19 06:34 Potassium 4.3 mmol/L (3.6-5.0) 03/31/19 06:34 Chloride 102.9 mmol/L (98-107) 03/31/19 06:34 Carbon Dioxide 22 mmol/L (22-30) 03/31/19 06:34 Anion Gap 19 mmol/L 03/31/19 06:34 BUN 10 mg/dL (9-20) 03/31/19 06:34 Creatinine 0.6 mg/dL (0.8-1.5) L 03/31/19 06:34 Estimated GFR > 60 ml/min 03/31/19 06:34 BUN/Creatinine Ratio 17 % 03/31/19 06:34 Glucose 81 mg/dL (75-100) 03/31/19 06:34 POC Glucose 105 (70-105) 03/30/19 18:13 Hemoglobin A1c 4.7 % (4-6) 03/25/19 17:56 Lactic Acid 1.40 mmol/L (0.7-2.0) 03/26/19 00:15 Calcium 9.4 mg/dL (8.4-10.2) 03/31/19 06:34 Phosphorus 2.50 mg/dL (2.5-4.5) 03/30/19 03:46 Magnesium 2.10 mg/dL (1.7-2.3) 03/30/19 03:46 Total Bilirubin 0.30 mg/dL (0.1-1.2) 03/30/19 03:46 AST 41 units/L (5-40) H 03/30/19 03:46 ALT 79 units/L (7-56) H 03/30/19 03:46 Alkaline Phosphatase 70 units/L (35-129) 03/30/19 03:46 Troponin T 0.040 ng/mL (0.00-0.029) H D 03/27/19 10:03 Total Protein 6.4 g/dL (6.3-8.2) 03/30/19 03:46 Albumin 3.4 g/dL (3.9-5) L 03/30/19 03:46 Albumin/Globulin Ratio 1.1 % 03/30/19 03:46 Triglycerides 106 mg/dL (2-149) 03/25/19 17:56 Cholesterol 191 mg/dL (50-199) 03/25/19 17:56 LDL Cholesterol Direct 137 mg/dL (50-130) H 03/25/19 17:56 HDL Cholesterol 44 mg/dL (40-59) 03/25/19 17:56 Cholesterol/HDL Ratio 4.34 % 03/25/19 17:56 Urine Color Yellow (Yellow) 03/25/19 18:13 Urine Turbidity Slightly-cloudy (Clear) 03/25/19 18:13 Urine pH 5.0 (5.0-7.0) 03/25/19 18:13 Ur Specific [place] 1.023 (1.003-1.030) 03/25/19 18:13 Urine Protein 100 mg/dl mg/dL (Negative) 03/25/19 18:13 Urine Glucose (UA) 50 mg/dL (Negative) 03/25/19 18:13 Urine Ketones Neg mg/dL (Negative) 03/25/19 18:13 Urine Blood Neg (Negative) 03/25/19 18:13 Urine Nitrite Neg (Negative) 03/25/19 18:13 Urine Bilirubin Neg (Negative) 03/25/19 18:13 Urine Urobilinogen < 2.0 mg/dL (<2.0) 03/25/19 18:13 Ur Leukocyte Esterase Neg (Negative) 03/25/19 18:13 Urine WBC (Auto) 8.0 /HPF (0.0-6.0) H 03/25/19 18:13 Urine RBC (Auto) 7.0 /HPF (0.0-6.0) 03/25/19 18:13 Amorphous Crystals Few 03/25/19 18:13 Urine Mucus Few /HPF 03/25/19 18:13 Urine Opiates Screen Presumptive negative 03/25/19 Unknown Urine Methadone Screen Presumptive negative 03/25/19 Unknown Ur Barbiturates Screen Presumptive negative 03/25/19 Unknown Ur Phencyclidine Scrn Presumptive positive 03/25/19 Unknown Ur Amphetamines Screen Presumptive negative 03/25/19 Unknown U Benzodiazepines Scrn Presumptive positive 03/25/19 Unknown Urine Cocaine Screen Presumptive negative 03/25/19 Unknown U Marijuana (THC) Screen Presumptive negative 03/25/19 Unknown Drugs of Abuse Note Disclamer 03/25/19 Unknown Active Medications - Current Medications Current Medications: Generic Name Dose Route Start Last Admin Trade Name Freq PRN Reason Stop Dose Admin Acetaminophen 650 mg 03/25/19 21:35 Tylenol PO Q4H PRN Pain MILD(1-3)/Fever >100.5/ALCARAZ Albuterol 2.5 mg 03/25/19 21:48 Proventil IH Q4HRT PRN Shortness Of Breath Clonazepam 1 mg 03/27/19 22:00 04/01/19 09:57 Klonopin PO 1 mg BID SILVANA Administration Enoxaparin Sodium 40 mg 03/26/19 22:00 03/31/19 22:39 Lovenox SUB-Q 40 mg QDAY@2200 SILVANA Administration Famotidine 20 mg 03/29/19 10:00 04/01/19 09:54 Pepcid PO 20 mg BID SILVANA Administration Hydromorphone HCl 0.5 mg 03/25/19 21:35 03/30/19 04:20 Dilaudid IV 0.5 mg Q3H PRN Administration Pain , Severe (7-10) Lacosamide 200 mg 03/27/19 22:00 04/01/19 09:58 Vimpat PO 200 mg Q12HR SILVANA Administration Lamotrigine 300 mg 03/27/19 22:00 04/01/19 09:58 Lamictal PO 300 mg BID SILVANA Administration Levetiracetam 1,500 mg 03/31/19 10:00 04/01/19 09:54 Keppra PO 1,500 mg BID SILVANA Administration Lorazepam 1 mg 03/27/19 22:00 04/01/19 09:58 Ativan PO 1 mg QID SILVANA Administration Lorazepam 2 mg 03/29/19 13:22 04/01/19 04:49 Ativan IV 2 mg Q4H PRN Administration Agitation Metoclopramide HCl 10 mg 03/25/19 21:35 Reglan IV Q6H PRN Nausea And Vomiting Metoprolol Tartrate 12.5 mg 03/27/19 14:00 04/01/19 09:54 Lopressor PO 12.5 mg BID SILVANA Administration Ondansetron HCl 4 mg 03/25/19 21:35 Zofran IV Q3H PRN Nausea And Vomiting Sodium Chloride 10 ml 03/25/19 22:00 04/01/19 09:59 Sodium Chloride Flush Syringe 10 Ml IV 10 ml BID SILVANA Administration Sodium Chloride 10 ml 03/25/19 21:35 03/26/19 22:28 Sodium Chloride Flush Syringe 10 Ml IV 10 ml PRN PRN Administration LINE FLUSH Topiramate 50 mg 03/27/19 22:00 04/01/19 09:54 Topamax PO 50 mg Q12HR SILVANA Administration Trazodone HCl 50 mg 03/27/19 21:00 03/31/19 17:32 Desyrel PO 50 mg QPM SILVANA Administration Nutrition/Malnutrition Assess - Dietary Evaluation Nutrition/Malnutrition Findings: Nutrition Notes Start: 03/26/19 08:02 Freq: Status: Active Protocol: Document 03/29/19 14:45 LM (Rec: 10/14/19 14:57 LM [id number]) Nutrition Notes Initial or Follow up Reassessment Current Diagnosis Respiratory Failure Other Pertinent Diagnosis Seizures, cardiac arrest Current Diet Vital AF 1.2 at 65 ml/hr Labs/Tests K 3.1 BUN 8 Cr 0.7 BG 101 Pertinent Medications Reviewed Height 5 ft 5 in Weight 109.5 kg [place] Body Weight (kg) 61.81 BMI 40.1 Weight change and time frame Wt change noted. Taken from [facility]. Subjective/Other Information Vital AF running at 65 ml/hr. Pt tolerating TF and remains on vent. Percent of energy/protein needs met: 100%/94% Burn Absent Trauma Absent Minimum of two criteria No physical signs of malnutrition #1 Nutrition Diagnosis Inadequate oral intake Diagnosis Progress(for reassessment Continues documentation) Is patient on ventilator? Yes Is Patient Ambulatory and/or Out of Bed No [facility] 2397.528 Kcal/Kg value to use for calculation 16 Approximate Energy Requirements Using 1752 kcal/Kg Calculation Used for Recommendations Kcal/kg Additional Notes Protein needs: 124g/kg (>2.5g/ kg IBW 62kg) Fluid needs: 1ml/kcal Nutrition Intervention Change Diet Order: Continue TF Nutrition Support: Vital AF 1.2 at 65ml/hr Water flush 100ml q4h Kcal 1,872 Protein (gm) 117 Fluid (mL) 1,265 Goal #1 Meet at least 80% of energy and protein needs via TF Anticipated Discharge Needs: Unable to determine at this time Follow-Up By: 04/02/19 Additional Comments F/U for TF tolerance
--- NOTE | 2019-04-01 12:12 | Discharge Summary ---
Providers - Providers Date of Admission: 03/25/19 21:38 Attending physician: CHANELLE RICHMOND MD 03/25/19 21:35 Consult to Physician [CONS] Routine Comment: Consulting Provider: MIN RAMIRES Physician Instructions: Reason For Exam: Resp failure 03/26/19 00:19 Consult to Physician [CONS] Routine Comment: Consulting Provider: IMMANUEL MAYERS Physician Instructions: Reason For Exam: s/p cardiac arrest, hx tbi, seizure,cardiac arrest 03/26/19 10:55 Consult to Dietitian/Nutrition [CONS] Routine Physician Instructions: Assess nutrtn needs, initiate, modify, manage TF Reason For Exam: Reason for Consult: Write/Manage Tube Feeding Reason for Consult: Write/Manage Tube Feeding 03/26/19 19:38 Consult to Physician [CONS] Routine Comment: Consulting Provider: TANG MONDRAGON Physician Instructions: Reason For Exam: Seizures/Cardiac arrest 03/28/19 08:03 Midline [Consult to PICC Line RN] [CONS] Routine Reason For Exam: IV access Type Line:: Midline 04/01/19 07:41 Physical Therapy Evaluation and Treat [CONS] Routine Comment: Reason For Exam: gen weakness/sp intubation 04/01/19 07:42 Occupational Therapy Evaluate and Treat [CONS] Routine Comment: Reason For Exam: gen weakness/sp intubation Primary care physician: COREMAKER FLOOR Hospitalization Condition: Critical Disposition: DC/[place]-06 HOME [facility] Time spent for discharge: 33min Core Measure Documentation - Palliative Care Palliative Care/ Comfort Measures: Not Applicable - Core Measures Any of the following diagnoses?: none Exam - Constitutional Vitals: Temp Pulse Resp BP Pulse Ox 98.4 F 89 18 129/76 98 04/01/19 08:18 04/01/19 09:54 04/01/19 08:18 04/01/19 09:54 04/01/19 10:00 General appearance: Present: no acute distress, well-nourished - EENT Eyes: Present: PERRL ENT: hearing intact, clear oral mucosa - Neck Neck: Present: supple, normal ROM - Respiratory Respiratory effort: normal Respiratory: bilateral: CTA - Cardiovascular Heart Sounds: Present: S1 & S2. Absent: rub, click - Extremities Extremities: pulses symmetrical, No edema Peripheral Pulses: within normal limits - Abdominal General gastrointestinal: Present: soft, non-tender, non-distended, normal bowel sounds Male genitourinary: Present: normal - Integumentary Integumentary: Present: clear, warm, dry - Musculoskeletal Musculoskeletal: gait normal, strength equal bilaterally - Psychiatric Psychiatric: appropriate mood/affect, intact judgment & insight - Neurologic Neurologic: CNII-XII intact, moves all extremities Plan Follow up with: PRIMARY CARE,MD [Primary Care Provider] - 7 Days Prescriptions: levETIRAcetam [Keppra] 1,500 mg PO BID #60 dose clonazePAM [KlonoPIN] 1 mg PO BID #60 tablet Metoprolol [Lopressor TAB] 12.5 mg PO BID #60 tablet
--- NOTE | 2019-04-01 13:32 | Progress Note ---
Assessment and Plan Imp: 1. Status epilepticus 2. Seizure d/o 3. Acute respiratory failure, hypoxia 4. S/p CP arrest 5. SIRS 6. MERRF Rec: 1. Had a long discussion with mother by phone and clarified his home regimen have been restarted: Trazodone 50mg QHS, Keppra 1500mg BID, Vimpat 200mg BID, Lamictal 300mg BID, Ativan PO 1mg QID, Klonopin 1mg BID, Topamax 50mg BID, Baclofen 5mg TID 2. Advanced diet 3. D/c planning -> SNF per social work case manager notes 4. Stable pulm-martinez; will sign off; please call or reconsult prn No family present today Subjective Date of service: 04/01/19 Principal diagnosis: C-P arrest, Acute resp failure, status epilepticus, MERRF Interval history: No events. Extubated. No seizures. Poor historian. No complaints. On RA. Active Medications Acetaminophen (Tylenol) 650 mg PO Q4H PRN PRN Reason: Pain MILD(1-3)/Fever >100.5/ALCARAZ Albuterol (Proventil) 2.5 mg IH Q4HRT PRN PRN Reason: Shortness Of Breath Clonazepam (Klonopin) 1 mg PO BID [facility] Last Admin: 04/01/19 09:57 Dose: 1 mg Documented by: Enoxaparin Sodium (Lovenox) 40 mg SUB-Q QDAY@2200 [facility] Last Admin: 03/31/19 22:39 Dose: 40 mg Documented by: Famotidine (Pepcid) 20 mg PO BID [facility] Last Admin: 04/01/19 09:54 Dose: 20 mg Documented by: Hydromorphone HCl (Dilaudid) 0.5 mg IV Q3H PRN PRN Reason: Pain , Severe (7-10) Last Admin: 03/30/19 04:20 Dose: 0.5 mg Documented by: Lacosamide (Vimpat) 200 mg PO Q12HR [facility] Last Admin: 04/01/19 09:58 Dose: 200 mg Documented by: Lamotrigine (Lamictal) 300 mg PO BID [facility] Last Admin: 04/01/19 09:58 Dose: 300 mg Documented by: Levetiracetam (Keppra) 1,500 mg PO BID [facility] Last Admin: 04/01/19 09:54 Dose: 1,500 mg Documented by: Lorazepam (Ativan) 1 mg PO QID [facility] Last Admin: 04/01/19 09:58 Dose: 1 mg Documented by: Lorazepam (Ativan) 2 mg IV Q4H PRN PRN Reason: Agitation Last Admin: 04/01/19 04:49 Dose: 2 mg Documented by: Metoclopramide HCl (Reglan) 10 mg IV Q6H PRN PRN Reason: Nausea And Vomiting Metoprolol Tartrate (Lopressor) 12.5 mg PO BID [facility] Last Admin: 04/01/19 09:54 Dose: 12.5 mg Documented by: Ondansetron HCl (Zofran) 4 mg IV Q3H PRN PRN Reason: Nausea And Vomiting Sodium Chloride (Sodium Chloride Flush Syringe 10 Ml) 10 ml IV BID [facility] Last Admin: 04/01/19 09:59 Dose: 10 ml Documented by: Sodium Chloride (Sodium Chloride Flush Syringe 10 Ml) 10 ml IV PRN PRN PRN Reason: LINE FLUSH Last Admin: 03/26/19 22:28 Dose: 10 ml Documented by: Topiramate (Topamax) 50 mg PO Q12HR [facility] Last Admin: 04/01/19 09:54 Dose: 50 mg Documented by: Trazodone HCl (Desyrel) 50 mg PO QPM [facility] Last Admin: 03/31/19 17:32 Dose: 50 mg Documented by: Objective Vital Signs - 12hr 04/01/19 04/01/19 04/01/19 03:50 04:00 08:18 Temperature 98.4 F 98.4 F Pulse Rate 88 88 89 Respiratory 18 18 Rate Blood Pressure 118/44 129/76 O2 Sat by Pulse 99 99 Oximetry 04/01/19 04/01/19 09:54 10:00 Temperature Pulse Rate 89 Respiratory Rate Blood Pressure 129/76 O2 Sat by Pulse 98 Oximetry Constitutional: no acute distress, alert Eyes: non-icteric ENT: oropharynx moist Neck: supple Effort: normal Ascultation: Bilateral: clear Cardiovascular: other (tachy, RR; no mrg) Gastrointestinal: normoactive bowel sounds, soft, non-tender, non-distended Integumentary: normal Extremities: no cyanosis, no edema, pink and warm Neurologic: other (awake, moves all extremities and follows commands) Psychiatric: mood appropriate, affect normal CBC and BMP: 03/30/19 03:46 03/31/19 06:34 ABG, PT/INR, D-dimer: ABG POC ABG pH 7.374 (7.35-7.45) 03/30/19 10: ABG pH 7.404 pH Units (7.350-7.450) 03/30/19 04:50 POC ABG pCO2 40.1 (35-45) 03/30/19 10: ABG pCO2 38.6 mm Hg 03/30/19 04:50 POC ABG pO2 97 (80-105) 03/30/19 10: ABG pO2 337.5 mm Hg (80.0-90.0) H 03/30/19 04:50 POC ABG HCO3 23.4 (22-26 mml/L) 03/30/19 10: POC ABG Total CO2 25 (23-27mmol/L) 03/30/19 10:19 POC ABG O2 Sat 97 03/30/19 10:19 ABG O2 Saturation 99.5 % (95.0-99.0) H 03/30/19 04:50 Abnormal lab findings: Abnormal Labs 03/25/19 03/25/19 03/25/19 17:56 17:56 17:56 WBC 16.4 H RDW 12.6 L Lymph % (Auto) 13.3 L [place] % (Auto) Lymph # [place] # Seg Neutrophils % 80.8 H Seg Neutrophils # 13.3 H POC ABG pH POC ABG pCO2 POC ABG pO2 ABG pO2 ABG HCO3 ABG O2 Saturation ABG Base Excess ABG Hemoglobin VBG pH Potassium 3.3 L Chloride 108.6 H Carbon Dioxide 19 L BUN Creatinine Glucose 182 H POC Glucose Lactic Acid 4.80 H* Calcium 8.3 L Magnesium AST 41 H ALT Troponin T 0.034 H Total Protein Albumin LDL Cholesterol Direct 137 H Urine WBC (Auto) 03/25/19 03/25/19 03/25/19 18:04 18:13 18:39 WBC RDW Lymph % (Auto) [place] % (Auto) Lymph # [place] # Seg Neutrophils % Seg Neutrophils # POC ABG pH 7.277 L POC ABG pCO2 POC ABG pO2 378 H ABG pO2 ABG HCO3 ABG O2 Saturation ABG Base Excess ABG Hemoglobin VBG pH 7.231 L Potassium Chloride Carbon Dioxide BUN Creatinine Glucose POC Glucose Lactic Acid Calcium Magnesium AST ALT Troponin T Total Protein Albumin LDL Cholesterol Direct Urine WBC (Auto) 8.0 H 03/25/19 03/25/19 03/25/19 19:36 20:29 22:54 WBC RDW Lymph % (Auto) [place] % (Auto) Lymph # [place] # Seg Neutrophils % Seg Neutrophils # POC ABG pH POC ABG pCO2 POC ABG pO2 ABG pO2 ABG HCO3 ABG O2 Saturation ABG Base Excess ABG Hemoglobin VBG pH Potassium Chloride Carbon Dioxide BUN Creatinine Glucose POC Glucose Lactic Acid 2.40 H* 2.30 H* Calcium Magnesium AST ALT Troponin T 0.077 H D Total Protein Albumin LDL Cholesterol Direct Urine WBC (Auto) 03/25/19 03/26/19 03/26/19 22:54 04:30 04:30 WBC 14.1 H RDW 12.5 L Lymph % (Auto) 7.0 L [place] % (Auto) Lymph # 1.0 L [place] # Seg Neutrophils % 89.4 H Seg Neutrophils # 12.6 H POC ABG pH POC ABG pCO2 POC ABG pO2 ABG pO2 ABG HCO3 ABG O2 Saturation ABG Base Excess ABG Hemoglobin VBG pH Potassium Chloride 111.1 H Carbon Dioxide 19 L BUN Creatinine 0.7 L Glucose 140 H POC Glucose Lactic Acid 2.10 H* Calcium Magnesium AST ALT Troponin T Total Protein Albumin LDL Cholesterol Direct Urine WBC (Auto) 03/26/19 03/26/19 03/26/19 05:00 12:29 16:24 WBC RDW Lymph % (Auto) [place] % (Auto) Lymph # [place] # Seg Neutrophils % Seg Neutrophils # POC ABG pH POC ABG pCO2 POC ABG pO2 ABG pO2 134.8 H ABG HCO3 16.8 L ABG O2 Saturation ABG Base Excess -6.8 L ABG Hemoglobin 13.8 L VBG pH Potassium Chloride Carbon Dioxide BUN Creatinine Glucose POC Glucose 142 H 119 H Lactic Acid Calcium Magnesium AST ALT Troponin T Total Protein Albumin LDL Cholesterol Direct Urine WBC (Auto) 03/27/19 03/27/19 03/27/19 05:00 05:00 05:47 WBC 19.1 H RDW 12.9 L Lymph % (Auto) 7.1 L [place] % (Auto) Lymph # [place] # 1.1 H Seg Neutrophils % 87.1 H Seg Neutrophils # 16.6 H POC ABG pH POC ABG pCO2 31.7 L POC ABG pO2 ABG pO2 ABG HCO3 ABG O2 Saturation ABG Base Excess ABG Hemoglobin VBG pH Potassium Chloride 110.0 H Carbon Dioxide 19 L BUN 6 L Creatinine 0.6 L Glucose 135 H POC Glucose Lactic Acid Calcium Magnesium 1.50 L AST ALT Troponin T Total Protein Albumin LDL Cholesterol Direct Urine WBC (Auto) 03/27/19 03/27/19 03/28/19 10:03 12:08 04:00 WBC 14.5 H RDW 12.7 L Lymph % (Auto) 10.2 L [place] % (Auto) Lymph # [place] # 1.0 H Seg Neutrophils % 82.4 H Seg Neutrophils # 12.0 H POC ABG pH POC ABG pCO2 POC ABG pO2 ABG pO2 ABG HCO3 ABG O2 Saturation ABG Base Excess ABG Hemoglobin VBG pH Potassium Chloride Carbon Dioxide BUN Creatinine Glucose POC Glucose 136 H Lactic Acid Calcium Magnesium AST ALT Troponin T 0.040 H D Total Protein Albumin LDL Cholesterol Direct Urine WBC (Auto) 03/28/19 03/28/19 03/29/19 04:00 12:49 05:40 WBC 11.8 H RDW 12.7 L Lymph % (Auto) 36.6 H [place] % (Auto) 12.2 H Lymph # [place] # 1.4 H Seg Neutrophils % Seg Neutrophils # POC ABG pH POC ABG pCO2 POC ABG pO2 ABG pO2 ABG HCO3 ABG O2 Saturation ABG Base Excess ABG Hemoglobin VBG pH Potassium Chloride Carbon Dioxide 19 L BUN Creatinine 0.6 L Glucose 119 H POC Glucose 115 H Lactic Acid Calcium Magnesium AST 51 H ALT 97 H Troponin T Total Protein Albumin LDL Cholesterol Direct Urine WBC (Auto) 03/29/19 03/30/19 03/30/19 05:40 03:46 03:46 WBC RDW 12.7 L Lymph % (Auto) 37.5 H [place] % (Auto) 12.5 H Lymph # [place] # 1.3 H Seg Neutrophils % Seg Neutrophils # POC ABG pH POC ABG pCO2 POC ABG pO2 ABG pO2 ABG HCO3 ABG O2 Saturation ABG Base Excess ABG Hemoglobin VBG pH Potassium 3.1 L D Chloride 107.3 H 108.8 H Carbon Dioxide BUN 8 L Creatinine 0.7 L 0.6 L Glucose 101 H POC Glucose Lactic Acid Calcium 8.0 L Magnesium AST 41 H ALT 79 H 79 H Troponin T Total Protein 6.0 L Albumin 3.4 L 3.4 L LDL Cholesterol Direct Urine WBC (Auto) 03/30/19 03/30/19 03/31/19 04:50 12:17 06:34 WBC RDW Lymph % (Auto) [place] % (Auto) Lymph # [place] # Seg Neutrophils % Seg Neutrophils # POC ABG pH POC ABG pCO2 POC ABG pO2 ABG pO2 337.5 H ABG HCO3 ABG O2 Saturation 99.5 H ABG Base Excess ABG Hemoglobin 13.6 L VBG pH Potassium Chloride Carbon Dioxide BUN Creatinine 0.6 L Glucose POC Glucose 112 H Lactic Acid Calcium Magnesium AST ALT Troponin T Total Protein Albumin LDL Cholesterol Direct Urine WBC (Auto) Chest x-ray: report reviewed, image reviewed
--- NOTE | 2019-04-01 13:36 | Progress Note ---
Assessment and Plan Assessment and plan: 29-year-old man with history of Down syndrome, mental retardation and seizure disorder who was brought to the hospital for prolonged seizure. Mother stated that he was sitting for a long time and then called EMS. When EMS arrived he had another seizure went into cardiac arrest. Patient received CPR and epinephrine and had ROS seen. He was intubated for airway protection and put in the ICU Status epilepticus Optimize AED, vagus stimulator in placer, neuro input appreciated Drug screen was positive for PCP, likely a false positive. SIRs, non infectious etiology, no organ damage sepsis/aspiration pneumonia ruled out cxr on 03/30 show improved atelectasis, antibiotics were discontinued on 03/28 Acute hypoxic respiratory failure on mechanical ventilator extubated on 03/30, was due to seizure, improving sp cardiac arrest, was due to seizure no further wo needed, cardiology input appreciated dvt ppx, scds and lovenox Disposition, family wants intermediate placement, awaiting placement History Interval history: Review of systems Constitutional: No fevers, no malaise, no joint pains CVS: No chest pain, no orthopnea, no dyspnea on exertion, no pedal edema GI: No abdominal pain, no diarrhea, no vomiting, no constipation Respiratory: no wheezing, no coughing Hospitalist Physical - Physical exam Narrative exam: General.: Appears well, no distress, nontoxic, Trisomy 21 facial appearance HEENT: Moist mucous membranes, extraocular muscles intact, no lymphadenopathy Neck: supple Cardiac: S1-S2 heard Lungs: clear to auscultation bilaterally Abdomen: soft , nontender, nondistended, bowel sounds positive Extremities: no edema clubbing or cyanosis Skin: no rash or lesions Neurologic: no gross focal deficits, Cognitive deficits due to MR Psych: calm, and cooperative - Constitutional Vitals: Temp Pulse Resp BP Pulse Ox 98.4 F 89 18 129/76 98 04/01/19 08:18 04/01/19 09:54 04/01/19 08:18 04/01/19 09:54 04/01/19 10:00 General appearance: Present: no acute distress, well-nourished Results - Labs CBC & Chem 7: 03/30/19 03:46 03/31/19 06:34 Labs: Laboratory Last Values WBC 10.6 K/mm3 (4.5-11.0) 03/30/19 03:46 RBC 4.16 M/mm3 (3.65-5.03) 03/30/19 03:46 Hgb 13.0 gm/dl (11.8-15.2) 03/30/19 03:46 Hct 38.1 % (35.5-45.6) 03/30/19 03:46 MCV 92 fl (84-94) 03/30/19 03:46 MCH 31 pg (28-32) 03/30/19 03:46 MCHC 34 % (32-34) 03/30/19 03:46 RDW 12.7 % (13.2-15.2) L 03/30/19 03:46 Plt Count 265 K/mm3 (140-440) 03/30/19 03:46 Lymph % (Auto) 37.5 % (13.4-35.0) H 03/30/19 03:46 [place] % (Auto) 12.5 % (0.0-7.3) H 03/30/19 03:46 Eos % (Auto) 1.9 % (0.0-4.3) 03/30/19 03:46 Baso % (Auto) 0.6 % (0.0-1.8) 03/30/19 03:46 Lymph # 4.0 K/mm3 (1.2-5.4) 03/30/19 03:46 [place] # 1.3 K/mm3 (0.0-0.8) H 03/30/19 03:46 Eos # 0.2 K/mm3 (0.0-0.4) 03/30/19 03:46 Baso # 0.1 K/mm3 (0.0-0.1) 03/30/19 03:46 Seg Neutrophils % 47.5 % (40.0-70.0) 03/30/19 03:46 Seg Neutrophils # 5.0 K/mm3 (1.8-7.7) 03/30/19 03:46 POC ABG pH 7.374 (7.35-7.45) 03/30/19 10: ABG pH 7.404 pH Units (7.350-7.450) 03/30/19 04:50 POC ABG pCO2 40.1 (35-45) 03/30/19 10: ABG pCO2 38.6 mm Hg 03/30/19 04:50 POC ABG pO2 97 (80-105) 03/30/19 10: ABG pO2 337.5 mm Hg (80.0-90.0) H 03/30/19 04:50 POC ABG HCO3 23.4 (22-26 mml/L) 03/30/19 10: ABG HCO3 23.6 mmol/L (20.0-26.0) 03/30/19 04:50 POC ABG Total CO2 25 (23-27mmol/L) 03/30/19 10:19 POC ABG O2 Sat 97 03/30/19 10:19 ABG O2 Saturation 99.5 % (95.0-99.0) H 03/30/19 04:50 ABG O2 Content 19.5 (0.0-44) 03/30/19 04:50 POC ABG Base Excess -2 ((-2) - (+3)mmol/L) 03/30/19 10: ABG Base Excess -0.9 mmol/L (-2.0-3.0) 03/30/19 04:50 ABG Hemoglobin 13.6 gm/dl (14.0-18.0) L 03/30/19 04:50 ABG Carboxyhemoglobin 1.2 % (0.0-5.0) 03/30/19 04:50 ABG Methemoglobin 0.5 % (0.0-1.5) 03/30/19 04:50 VBG pH 7.231 (7.320-7.420) L 03/25/19 18:04 Oxyhemoglobin 97.8 % (95.0-99.0) 03/30/19 04:50 FiO2 25 % 03/30/19 10:19 Sodium 140 mmol/L (137-145) 03/31/19 06:34 Potassium 4.3 mmol/L (3.6-5.0) 03/31/19 06:34 Chloride 102.9 mmol/L (98-107) 03/31/19 06:34 Carbon Dioxide 22 mmol/L (22-30) 03/31/19 06:34 Anion Gap 19 mmol/L 03/31/19 06:34 BUN 10 mg/dL (9-20) 03/31/19 06:34 Creatinine 0.6 mg/dL (0.8-1.5) L 03/31/19 06:34 Estimated GFR > 60 ml/min 03/31/19 06:34 BUN/Creatinine Ratio 17 % 03/31/19 06:34 Glucose 81 mg/dL (75-100) 03/31/19 06:34 POC Glucose 105 (70-105) 03/30/19 18:13 Hemoglobin A1c 4.7 % (4-6) 03/25/19 17:56 Lactic Acid 1.40 mmol/L (0.7-2.0) 03/26/19 00:15 Calcium 9.4 mg/dL (8.4-10.2) 03/31/19 06:34 Phosphorus 2.50 mg/dL (2.5-4.5) 03/30/19 03:46 Magnesium 2.10 mg/dL (1.7-2.3) 03/30/19 03:46 Total Bilirubin 0.30 mg/dL (0.1-1.2) 03/30/19 03:46 AST 41 units/L (5-40) H 03/30/19 03:46 ALT 79 units/L (7-56) H 03/30/19 03:46 Alkaline Phosphatase 70 units/L (35-129) 03/30/19 03:46 Troponin T 0.040 ng/mL (0.00-0.029) H D 03/27/19 10:03 Total Protein 6.4 g/dL (6.3-8.2) 03/30/19 03:46 Albumin 3.4 g/dL (3.9-5) L 03/30/19 03:46 Albumin/Globulin Ratio 1.1 % 03/30/19 03:46 Triglycerides 106 mg/dL (2-149) 03/25/19 17:56 Cholesterol 191 mg/dL (50-199) 03/25/19 17:56 LDL Cholesterol Direct 137 mg/dL (50-130) H 03/25/19 17:56 HDL Cholesterol 44 mg/dL (40-59) 03/25/19 17:56 Cholesterol/HDL Ratio 4.34 % 03/25/19 17:56 Urine Color Yellow (Yellow) 03/25/19 18:13 Urine Turbidity Slightly-cloudy (Clear) 03/25/19 18:13 Urine pH 5.0 (5.0-7.0) 03/25/19 18:13 Ur Specific [place] 1.023 (1.003-1.030) 03/25/19 18:13 Urine Protein 100 mg/dl mg/dL (Negative) 03/25/19 18:13 Urine Glucose (UA) 50 mg/dL (Negative) 03/25/19 18:13 Urine Ketones Neg mg/dL (Negative) 03/25/19 18:13 Urine Blood Neg (Negative) 03/25/19 18:13 Urine Nitrite Neg (Negative) 03/25/19 18:13 Urine Bilirubin Neg (Negative) 03/25/19 18:13 Urine Urobilinogen < 2.0 mg/dL (<2.0) 03/25/19 18:13 Ur Leukocyte Esterase Neg (Negative) 03/25/19 18:13 Urine WBC (Auto) 8.0 /HPF (0.0-6.0) H 03/25/19 18:13 Urine RBC (Auto) 7.0 /HPF (0.0-6.0) 03/25/19 18:13 Amorphous Crystals Few 03/25/19 18:13 Urine Mucus Few /HPF 03/25/19 18:13 Urine Opiates Screen Presumptive negative 03/25/19 Unknown Urine Methadone Screen Presumptive negative 03/25/19 Unknown Ur Barbiturates Screen Presumptive negative 03/25/19 Unknown Ur Phencyclidine Scrn Presumptive positive 03/25/19 Unknown Ur Amphetamines Screen Presumptive negative 03/25/19 Unknown U Benzodiazepines Scrn Presumptive positive 03/25/19 Unknown Urine Cocaine Screen Presumptive negative 03/25/19 Unknown U Marijuana (THC) Screen Presumptive negative 03/25/19 Unknown Drugs of Abuse Note Disclamer 03/25/19 Unknown Active Medications - Current Medications Current Medications: Generic Name Dose Route Start Last Admin Trade Name Freq PRN Reason Stop Dose Admin Acetaminophen 650 mg 03/25/19 21:35 Tylenol PO Q4H PRN Pain MILD(1-3)/Fever >100.5/ALCARAZ Albuterol 2.5 mg 03/25/19 21:48 Proventil IH Q4HRT PRN Shortness Of Breath Clonazepam 1 mg 03/27/19 22:00 04/01/19 09:57 Klonopin PO 1 mg BID SILVANA Administration Enoxaparin Sodium 40 mg 03/26/19 22:00 03/31/19 22:39 Lovenox SUB-Q 40 mg QDAY@2200 SILVANA Administration Famotidine 20 mg 03/29/19 10:00 04/01/19 09:54 Pepcid PO 20 mg BID SILVANA Administration Hydromorphone HCl 0.5 mg 03/25/19 21:35 03/30/19 04:20 Dilaudid IV 0.5 mg Q3H PRN Administration Pain , Severe (7-10) Lacosamide 200 mg 03/27/19 22:00 04/01/19 09:58 Vimpat PO 200 mg Q12HR SILVANA Administration Lamotrigine 300 mg 03/27/19 22:00 04/01/19 09:58 Lamictal PO 300 mg BID SILVANA Administration Levetiracetam 1,500 mg 03/31/19 10:00 04/01/19 09:54 Keppra PO 1,500 mg BID SILVANA Administration Lorazepam 1 mg 03/27/19 22:00 04/01/19 09:58 Ativan PO 1 mg QID SILVANA Administration Lorazepam 2 mg 03/29/19 13:22 04/01/19 04:49 Ativan IV 2 mg Q4H PRN Administration Agitation Metoclopramide HCl 10 mg 03/25/19 21:35 Reglan IV Q6H PRN Nausea And Vomiting Metoprolol Tartrate 12.5 mg 03/27/19 14:00 04/01/19 09:54 Lopressor PO 12.5 mg BID SILVANA Administration Ondansetron HCl 4 mg 03/25/19 21:35 Zofran IV Q3H PRN Nausea And Vomiting Sodium Chloride 10 ml 03/25/19 22:00 04/01/19 09:59 Sodium Chloride Flush Syringe 10 Ml IV 10 ml BID SILVANA Administration Sodium Chloride 10 ml 03/25/19 21:35 03/26/19 22:28 Sodium Chloride Flush Syringe 10 Ml IV 10 ml PRN PRN Administration LINE FLUSH Topiramate 50 mg 03/27/19 22:00 04/01/19 09:54 Topamax PO 50 mg Q12HR SILVANA Administration Trazodone HCl 50 mg 03/27/19 21:00 03/31/19 17:32 Desyrel PO 50 mg QPM SILVANA Administration Nutrition/Malnutrition Assess - Dietary Evaluation Nutrition/Malnutrition Findings: Nutrition Notes Start: 03/26/19 08:02 Freq: Status: Active Protocol: Document 03/29/19 14:45 LM (Rec: 03/29/19 14:57 LM [facility]-[id number]) Nutrition Notes Initial or Follow up Reassessment Current Diagnosis Respiratory Failure Other Pertinent Diagnosis Seizures, cardiac arrest Current Diet Vital AF 1.2 at 65 ml/hr Labs/Tests K 3.1 BUN 8 Cr 0.7 BG 101 Pertinent Medications Reviewed Height 5 ft 5 in Weight 109.5 kg [place] Body Weight (kg) 61.81 BMI 40.1 Weight change and time frame Wt change noted. Taken from [facility]. Subjective/Other Information Vital AF running at 65 ml/hr. Pt tolerating TF and remains on vent. Percent of energy/protein needs met: 100%/94% Burn Absent Trauma Absent Minimum of two criteria No physical signs of malnutrition #1 Nutrition Diagnosis Inadequate oral intake Diagnosis Progress(for reassessment Continues documentation) Is patient on ventilator? Yes Is Patient Ambulatory and/or Out of Bed No REE-([facility]-confined to bed) 2397.528 Kcal/Kg value to use for calculation 16 Approximate Energy Requirements Using 1752 kcal/Kg Calculation Used for Recommendations Kcal/kg Additional Notes Protein needs: 124g/kg (>2.5g/ kg IBW 62kg) Fluid needs: 1ml/kcal Nutrition Intervention Change Diet Order: Continue TF Nutrition Support: Vital AF 1.2 at 65ml/hr Water flush 100ml q4h Kcal 1,872 Protein (gm) 117 Fluid (mL) 1,265 Goal #1 Meet at least 80% of energy and protein needs via TF Anticipated Discharge Needs: Unable to determine at this time Follow-Up By: 04/02/19 Additional Comments F/U for TF tolerance
[2019-04-01] MEDS: DESYREL PO SCH (17:52)
[2019-04-01] MEDS: ENOXAPARIN SUB-Q SCH (22:12)
[2019-04-02] MEDS: KEPPRA PO SCH ×2 (09:47→22:15)
[2019-04-02] MEDS: TOPAMAX PO SCH ×2 (09:47→22:16)
[2019-04-02] MEDS: LaMICtal PO SCH ×2 (09:48→22:16)
[2019-04-02] MEDS: PEPCID PO SCH ×2 (09:48→22:15)
[2019-04-02] MEDS: VIMPAT PO SCH ×2 (09:48→22:17)
[2019-04-02] MEDS: SODIUM CHLORIDE FLUSH SYRINGE 10 ML IV SCH ×2 (09:48→22:17)
[2019-04-02] MEDS: METOPROLOL PO SCH ×2 (09:48→22:17)
[2019-04-02] MEDS: ATIVAN PO SCH ×4 (09:48→22:15)
--- NOTE | 2019-04-02 11:54 | Progress Note ---
Assessment and Plan Assessment and plan: 29-year-old man with history of Down syndrome, mental retardation and seizure disorder who was brought to the hospital for prolonged seizure. Mother stated that he was sitting for a long time and then called EMS. When EMS arrived he had another seizure went into cardiac arrest. Patient received CPR and epinephrine and had ROS seen. He was intubated for airway protection and put in the ICU Status epilepticus Optimize AED, vagus stimulator in placer, neuro input appreciated Drug screen was positive for PCP, likely a false positive. SIRs, non infectious etiology, no organ damage sepsis/aspiration pneumonia ruled out cxr on 03/30 show improved atelectasis, antibiotics were discontinued on 03/28 Acute hypoxic respiratory failure on mechanical ventilator extubated on 03/30, was due to seizure, improving sp cardiac arrest, was due to seizure no further wo needed, cardiology input appreciated dvt ppx, scds and lovenox Disposition, family wants long-term placement, awaiting placement History Interval history: Review of systems Constitutional: No fevers, no malaise, no joint pains CVS: No chest pain, no orthopnea, no dyspnea on exertion, no pedal edema GI: No abdominal pain, no diarrhea, no vomiting, no constipation Respiratory: no wheezing, no coughing Hospitalist Physical - Physical exam Narrative exam: General.: Appears well, no distress, nontoxic, Trisomy 21 facial appearance HEENT: Moist mucous membranes, extraocular muscles intact, no lymphadenopathy Neck: supple Cardiac: S1-S2 heard Lungs: clear to auscultation bilaterally Abdomen: soft , nontender, nondistended, bowel sounds positive Extremities: no edema clubbing or cyanosis Skin: no rash or lesions Neurologic: no gross focal deficits, Cognitive deficits due to MR Psych: calm, and cooperative - Constitutional Vitals: Temp Pulse Resp BP Pulse Ox 98.2 F 88 18 142/82 96 04/02/19 11:41 04/02/19 11:41 04/02/19 11:41 04/02/19 11:41 04/02/19 11:41 General appearance: Present: no acute distress, well-nourished Results - Labs CBC & Chem 7: 03/30/19 03:46 03/31/19 06:34 Labs: Laboratory Last Values WBC 10.6 K/mm3 (4.5-11.0) 03/30/19 03:46 RBC 4.16 M/mm3 (3.65-5.03) 03/30/19 03:46 Hgb 13.0 gm/dl (11.8-15.2) 03/30/19 03:46 Hct 38.1 % (35.5-45.6) 03/30/19 03:46 MCV 92 fl (84-94) 03/30/19 03:46 MCH 31 pg (28-32) 03/30/19 03:46 MCHC 34 % (32-34) 03/30/19 03:46 RDW 12.7 % (13.2-15.2) L 03/30/19 03:46 Plt Count 265 K/mm3 (140-440) 03/30/19 03:46 Lymph % (Auto) 37.5 % (13.4-35.0) H 03/30/19 03:46 [place] % (Auto) 12.5 % (0.0-7.3) H 03/30/19 03:46 Eos % (Auto) 1.9 % (0.0-4.3) 03/30/19 03:46 Baso % (Auto) 0.6 % (0.0-1.8) 03/30/19 03:46 Lymph # 4.0 K/mm3 (1.2-5.4) 03/30/19 03:46 [place] # 1.3 K/mm3 (0.0-0.8) H 03/30/19 03:46 Eos # 0.2 K/mm3 (0.0-0.4) 03/30/19 03:46 Baso # 0.1 K/mm3 (0.0-0.1) 03/30/19 03:46 Seg Neutrophils % 47.5 % (40.0-70.0) 03/30/19 03:46 Seg Neutrophils # 5.0 K/mm3 (1.8-7.7) 03/30/19 03:46 POC ABG pH 7.374 (7.35-7.45) 03/30/19 10: ABG pH 7.404 pH Units (7.350-7.450) 03/30/19 04:50 POC ABG pCO2 40.1 (35-45) 03/30/19 10: ABG pCO2 38.6 mm Hg 03/30/19 04:50 POC ABG pO2 97 (80-105) 03/30/19 10: ABG pO2 337.5 mm Hg (80.0-90.0) H 03/30/19 04:50 POC ABG HCO3 23.4 (22-26 mml/L) 03/30/19 10: ABG HCO3 23.6 mmol/L (20.0-26.0) 03/30/19 04:50 POC ABG Total CO2 25 (23-27mmol/L) 03/30/19 10:19 POC ABG O2 Sat 97 03/30/19 10:19 ABG O2 Saturation 99.5 % (95.0-99.0) H 03/30/19 04:50 ABG O2 Content 19.5 (0.0-44) 03/30/19 04:50 POC ABG Base Excess -2 ((-2) - (+3)mmol/L) 03/30/19 10: ABG Base Excess -0.9 mmol/L (-2.0-3.0) 03/30/19 04:50 ABG Hemoglobin 13.6 gm/dl (14.0-18.0) L 03/30/19 04:50 ABG Carboxyhemoglobin 1.2 % (0.0-5.0) 03/30/19 04:50 ABG Methemoglobin 0.5 % (0.0-1.5) 03/30/19 04:50 VBG pH 7.231 (7.320-7.420) L 03/25/19 18:04 Oxyhemoglobin 97.8 % (95.0-99.0) 03/30/19 04:50 FiO2 25 % 03/30/19 10:19 Sodium 140 mmol/L (137-145) 03/31/19 06:34 Potassium 4.3 mmol/L (3.6-5.0) 03/31/19 06:34 Chloride 102.9 mmol/L (98-107) 03/31/19 06:34 Carbon Dioxide 22 mmol/L (22-30) 03/31/19 06:34 Anion Gap 19 mmol/L 03/31/19 06:34 BUN 10 mg/dL (9-20) 03/31/19 06:34 Creatinine 0.6 mg/dL (0.8-1.5) L 03/31/19 06:34 Estimated GFR > 60 ml/min 03/31/19 06:34 BUN/Creatinine Ratio 17 % 03/31/19 06:34 Glucose 81 mg/dL (75-100) 03/31/19 06:34 POC Glucose 105 (70-105) 03/30/19 18:13 Hemoglobin A1c 4.7 % (4-6) 03/25/19 17:56 Lactic Acid 1.40 mmol/L (0.7-2.0) 03/26/19 00:15 Calcium 9.4 mg/dL (8.4-10.2) 03/31/19 06:34 Phosphorus 2.50 mg/dL (2.5-4.5) 03/30/19 03:46 Magnesium 2.10 mg/dL (1.7-2.3) 03/30/19 03:46 Total Bilirubin 0.30 mg/dL (0.1-1.2) 03/30/19 03:46 AST 41 units/L (5-40) H 03/30/19 03:46 ALT 79 units/L (7-56) H 03/30/19 03:46 Alkaline Phosphatase 70 units/L (35-129) 03/30/19 03:46 Troponin T 0.040 ng/mL (0.00-0.029) H D 03/27/19 10:03 Total Protein 6.4 g/dL (6.3-8.2) 03/30/19 03:46 Albumin 3.4 g/dL (3.9-5) L 03/30/19 03:46 Albumin/Globulin Ratio 1.1 % 03/30/19 03:46 Triglycerides 106 mg/dL (2-149) 03/25/19 17:56 Cholesterol 191 mg/dL (50-199) 03/25/19 17:56 LDL Cholesterol Direct 137 mg/dL (50-130) H 03/25/19 17:56 HDL Cholesterol 44 mg/dL (40-59) 03/25/19 17:56 Cholesterol/HDL Ratio 4.34 % 03/25/19 17:56 Urine Color Yellow (Yellow) 03/25/19 18:13 Urine Turbidity Slightly-cloudy (Clear) 03/25/19 18:13 Urine pH 5.0 (5.0-7.0) 03/25/19 18:13 Ur Specific [place] 1.023 (1.003-1.030) 03/25/19 18:13 Urine Protein 100 mg/dl mg/dL (Negative) 03/25/19 18:13 Urine Glucose (UA) 50 mg/dL (Negative) 03/25/19 18:13 Urine Ketones Neg mg/dL (Negative) 03/25/19 18:13 Urine Blood Neg (Negative) 03/25/19 18:13 Urine Nitrite Neg (Negative) 03/25/19 18:13 Urine Bilirubin Neg (Negative) 03/25/19 18:13 Urine Urobilinogen < 2.0 mg/dL (<2.0) 03/25/19 18:13 Ur Leukocyte Esterase Neg (Negative) 03/25/19 18:13 Urine WBC (Auto) 8.0 /HPF (0.0-6.0) H 03/25/19 18:13 Urine RBC (Auto) 7.0 /HPF (0.0-6.0) 03/25/19 18:13 Amorphous Crystals Few 03/25/19 18:13 Urine Mucus Few /HPF 03/25/19 18:13 Urine Opiates Screen Presumptive negative 03/25/19 Unknown Urine Methadone Screen Presumptive negative 03/25/19 Unknown Ur Barbiturates Screen Presumptive negative 03/25/19 Unknown Ur Phencyclidine Scrn Presumptive positive 03/25/19 Unknown Ur Amphetamines Screen Presumptive negative 03/25/19 Unknown U Benzodiazepines Scrn Presumptive positive 03/25/19 Unknown Urine Cocaine Screen Presumptive negative 03/25/19 Unknown U Marijuana (THC) Screen Presumptive negative 03/25/19 Unknown Drugs of Abuse Note Disclamer 03/25/19 Unknown Active Medications - Current Medications Current Medications: Generic Name Dose Route Start Last Admin Trade Name Freq PRN Reason Stop Dose Admin Acetaminophen 650 mg 03/25/19 21:35 Tylenol PO Q4H PRN Pain MILD(1-3)/Fever >100.5/ALCARAZ Albuterol 2.5 mg 03/25/19 21:48 Proventil IH Q4HRT PRN Shortness Of Breath Clonazepam 1 mg 03/27/19 22:00 04/02/19 09:47 Klonopin PO 1 mg BID SILVANA Administration Enoxaparin Sodium 40 mg 03/26/19 22:00 04/01/19 22:12 Lovenox SUB-Q 40 mg QDAY@2200 SILVANA Administration Famotidine 20 mg 03/29/19 10:00 04/02/19 09:48 Pepcid PO 20 mg BID SILVANA Administration Hydromorphone HCl 0.5 mg 03/25/19 21:35 03/30/19 04:20 Dilaudid IV 0.5 mg Q3H PRN Administration Pain , Severe (7-10) Lacosamide 200 mg 03/27/19 22:00 04/02/19 09:48 Vimpat PO 200 mg Q12HR SILVANA Administration Lamotrigine 300 mg 03/27/19 22:00 04/02/19 09:48 Lamictal PO 300 mg BID SILVANA Administration Levetiracetam 1,500 mg 03/31/19 10:00 04/02/19 09:47 Keppra PO 1,500 mg BID SILVANA Administration Lorazepam 1 mg 03/27/19 22:00 04/02/19 09:48 Ativan PO 1 mg QID SILVANA Administration Lorazepam 2 mg 03/29/19 13:22 04/01/19 04:49 Ativan IV 2 mg Q4H PRN Administration Agitation Metoclopramide HCl 10 mg 03/25/19 21:35 Reglan IV Q6H PRN Nausea And Vomiting Metoprolol Tartrate 12.5 mg 03/27/19 14:00 04/02/19 09:48 Lopressor PO 12.5 mg BID SILVANA Administration Ondansetron HCl 4 mg 03/25/19 21:35 Zofran IV Q3H PRN Nausea And Vomiting Sodium Chloride 10 ml 03/25/19 22:00 04/02/19 09:48 Sodium Chloride Flush Syringe 10 Ml IV 10 ml BID SILVANA Administration Sodium Chloride 10 ml 03/25/19 21:35 03/26/19 22:28 Sodium Chloride Flush Syringe 10 Ml IV 10 ml PRN PRN Administration LINE FLUSH Topiramate 50 mg 03/27/19 22:00 04/02/19 09:47 Topamax PO 50 mg Q12HR SILVANA Administration Trazodone HCl 50 mg 03/27/19 21:00 04/01/19 17:52 Desyrel PO 50 mg QPM SILVANA Administration Nutrition/Malnutrition Assess - Dietary Evaluation Nutrition/Malnutrition Findings: Nutrition Notes Start: 03/26/19 08:02 Freq: Status: Active Protocol: Document 04/02/19 11:04 RM (Rec: 04/02/19 11:14 RM [id number]) Nutrition Notes Initial or Follow up Reassessment Current Diagnosis Respiratory Failure Other Pertinent Diagnosis Seizures, cardiac arrest Current Diet [facility] soft Labs/Tests Reviewed Pertinent Medications Reviewed Height 5 ft 5 in Weight 109.5 kg [place] Body Weight (kg) 61.81 BMI 40.1 Subjective/Other Information TF DC'd and [facility] soft diet ordered. Pt confused and mumbling to himself at time of visit. Noted breakfast at bedside w/none eaten. Will order Ensure Enlive 1 daily to assess patient interest in ONS. Percent of energy/protein needs met: 0%/0% Burn Absent Trauma Absent Minimum of two criteria No physical signs of malnutrition #1 Nutrition Diagnosis Inadequate oral intake Diagnosis Progress(for reassessment Continues documentation) Is patient on ventilator? Yes Is Patient Ambulatory and/or Out of Bed No REE-([facility]-confined to bed) 2397.528 Kcal/Kg value to use for calculation 16 Approximate Energy Requirements Using 1752 kcal/Kg Calculation Used for Recommendations Kcal/kg Additional Notes Protein needs: 124g/kg (>2.5g/ kg IBW 62kg) Fluid needs: 1ml/kcal Nutrition Intervention Change Diet Order: Continue current Add Supplement/Snack (indicate name/kcal Ensure Enlive 1 daily /protein ) Provides kCal: 350 Provides Protein (gm) 20 Goal #1 Meet at least 75% of energy and protein needs via TF Anticipated Discharge Needs: Unable to determine at this time Follow-Up By: 04/05/19 Additional Comments Follow for PO and ONS intakes
[2019-04-02] MEDS: DESYREL PO SCH (17:29)
[2019-04-02] MEDS: ENOXAPARIN SUB-Q SCH (22:17)
[2019-04-03] MEDS ORDERED: PROVENTIL IH PRN (08:43)
--- NOTE | 2019-04-03 08:50 | Progress Note ---
Assessment and Plan Assessment and plan: 29-year-old man with history of Down syndrome, mental retardation and seizure disorder who was brought to the hospital for prolonged seizure. Mother stated that he was sitting for a long time and then called EMS. When EMS arrived he had another seizure went into cardiac arrest. Patient received CPR and epinephrine and had ROS seen. He was intubated for airway protection and put in the ICU Status epilepticus Optimize AED, vagus stimulator in placer, neuro input appreciated Drug screen was positive for PCP, likely a false positive. SIRs, non infectious etiology, no organ damage sepsis/aspiration pneumonia ruled out cxr on 03/30 show improved atelectasis, antibiotics were discontinued on 03/28 Acute hypoxic respiratory failure on mechanical ventilator extubated on 03/30, was due to seizure, improving sp cardiac arrest, was due to seizure no further wo needed, cardiology input appreciated dvt ppx, scds and lovenox Disposition, family wants penitentiary placement, awaiting placement History Interval history: Review of systems Constitutional: No fevers, no malaise, no joint pains CVS: No chest pain, no orthopnea, no dyspnea on exertion, no pedal edema GI: No abdominal pain, no diarrhea, no vomiting, no constipation Respiratory: no wheezing, no coughing Hospitalist Physical - Physical exam Narrative exam: General.: Appears well, no distress, nontoxic, Trisomy 21 facial appearance HEENT: Moist mucous membranes, extraocular muscles intact, no lymphadenopathy Neck: supple Cardiac: S1-S2 heard Lungs: clear to auscultation bilaterally Abdomen: soft , nontender, nondistended, bowel sounds positive Extremities: no edema clubbing or cyanosis Skin: no rash or lesions Neurologic: no gross focal deficits, Cognitive deficits due to MR Psych: calm, and cooperative - Constitutional Vitals: Temp Pulse Resp BP Pulse Ox 98.4 F 84 18 128/53 96 04/03/19 07:56 04/03/19 07:56 04/03/19 07:56 04/03/19 07:56 04/03/19 08:41 General appearance: Present: no acute distress, well-nourished Results - Labs CBC & Chem 7: 03/30/19 03:46 03/31/19 06:34 Labs: Laboratory Last Values WBC 10.6 K/mm3 (4.5-11.0) 03/30/19 03:46 RBC 4.16 M/mm3 (3.65-5.03) 03/30/19 03:46 Hgb 13.0 gm/dl (11.8-15.2) 03/30/19 03:46 Hct 38.1 % (35.5-45.6) 03/30/19 03:46 MCV 92 fl (84-94) 03/30/19 03:46 MCH 31 pg (28-32) 03/30/19 03:46 MCHC 34 % (32-34) 03/30/19 03:46 RDW 12.7 % (13.2-15.2) L 03/30/19 03:46 Plt Count 265 K/mm3 (140-440) 03/30/19 03:46 Lymph % (Auto) 37.5 % (13.4-35.0) H 03/30/19 03:46 [place] % (Auto) 12.5 % (0.0-7.3) H 03/30/19 03:46 Eos % (Auto) 1.9 % (0.0-4.3) 03/30/19 03:46 Baso % (Auto) 0.6 % (0.0-1.8) 03/30/19 03:46 Lymph # 4.0 K/mm3 (1.2-5.4) 03/30/19 03:46 Pershing # 1.3 K/mm3 (0.0-0.8) H 03/30/19 03:46 Eos # 0.2 K/mm3 (0.0-0.4) 03/30/19 03:46 Baso # 0.1 K/mm3 (0.0-0.1) 03/30/19 03:46 Seg Neutrophils % 47.5 % (40.0-70.0) 03/30/19 03:46 Seg Neutrophils # 5.0 K/mm3 (1.8-7.7) 03/30/19 03:46 POC ABG pH 7.374 (7.35-7.45) 03/30/19 10: ABG pH 7.404 pH Units (7.350-7.450) 03/30/19 04:50 POC ABG pCO2 40.1 (35-45) 03/30/19 10: ABG pCO2 38.6 mm Hg 03/30/19 04:50 POC ABG pO2 97 (80-105) 03/30/19 10: ABG pO2 337.5 mm Hg (80.0-90.0) H 03/30/19 04:50 POC ABG HCO3 23.4 (22-26 mml/L) 03/30/19 10: ABG HCO3 23.6 mmol/L (20.0-26.0) 03/30/19 04:50 POC ABG Total CO2 25 (23-27mmol/L) 03/30/19 10:19 POC ABG O2 Sat 97 03/30/19 10:19 ABG O2 Saturation 99.5 % (95.0-99.0) H 03/30/19 04:50 ABG O2 Content 19.5 (0.0-44) 03/30/19 04:50 POC ABG Base Excess -2 ((-2) - (+3)mmol/L) 03/30/19 10: ABG Base Excess -0.9 mmol/L (-2.0-3.0) 03/30/19 04:50 ABG Hemoglobin 13.6 gm/dl (14.0-18.0) L 03/30/19 04:50 ABG Carboxyhemoglobin 1.2 % (0.0-5.0) 03/30/19 04:50 ABG Methemoglobin 0.5 % (0.0-1.5) 03/30/19 04:50 VBG pH 7.231 (7.320-7.420) L 03/25/19 18:04 Oxyhemoglobin 97.8 % (95.0-99.0) 03/30/19 04:50 FiO2 25 % 03/30/19 10:19 Sodium 140 mmol/L (137-145) 03/31/19 06:34 Potassium 4.3 mmol/L (3.6-5.0) 03/31/19 06:34 Chloride 102.9 mmol/L (98-107) 03/31/19 06:34 Carbon Dioxide 22 mmol/L (22-30) 03/31/19 06:34 Anion Gap 19 mmol/L 03/31/19 06:34 BUN 10 mg/dL (9-20) 03/31/19 06:34 Creatinine 0.6 mg/dL (0.8-1.5) L 03/31/19 06:34 Estimated GFR > 60 ml/min 03/31/19 06:34 BUN/Creatinine Ratio 17 % 03/31/19 06:34 Glucose 81 mg/dL (75-100) 03/31/19 06:34 POC Glucose 105 (70-105) 03/30/19 18:13 Hemoglobin A1c 4.7 % (4-6) 03/25/19 17:56 Lactic Acid 1.40 mmol/L (0.7-2.0) 03/26/19 00:15 Calcium 9.4 mg/dL (8.4-10.2) 03/31/19 06:34 Phosphorus 2.50 mg/dL (2.5-4.5) 03/30/19 03:46 Magnesium 2.10 mg/dL (1.7-2.3) 03/30/19 03:46 Total Bilirubin 0.30 mg/dL (0.1-1.2) 03/30/19 03:46 AST 41 units/L (5-40) H 03/30/19 03:46 ALT 79 units/L (7-56) H 03/30/19 03:46 Alkaline Phosphatase 70 units/L (35-129) 03/30/19 03:46 Troponin T 0.040 ng/mL (0.00-0.029) H D 03/27/19 10:03 Total Protein 6.4 g/dL (6.3-8.2) 03/30/19 03:46 Albumin 3.4 g/dL (3.9-5) L 03/30/19 03:46 Albumin/Globulin Ratio 1.1 % 03/30/19 03:46 Triglycerides 106 mg/dL (2-149) 03/25/19 17:56 Cholesterol 191 mg/dL (50-199) 03/25/19 17:56 LDL Cholesterol Direct 137 mg/dL (50-130) H 03/25/19 17:56 HDL Cholesterol 44 mg/dL (40-59) 03/25/19 17:56 Cholesterol/HDL Ratio 4.34 % 03/25/19 17:56 Urine Color Yellow (Yellow) 03/25/19 18:13 Urine Turbidity Slightly-cloudy (Clear) 03/25/19 18:13 Urine pH 5.0 (5.0-7.0) 03/25/19 18:13 Ur Specific [place] 1.023 (1.003-1.030) 03/25/19 18:13 Urine Protein 100 mg/dl mg/dL (Negative) 03/25/19 18:13 Urine Glucose (UA) 50 mg/dL (Negative) 03/25/19 18:13 Urine Ketones Neg mg/dL (Negative) 03/25/19 18:13 Urine Blood Neg (Negative) 03/25/19 18:13 Urine Nitrite Neg (Negative) 03/25/19 18:13 Urine Bilirubin Neg (Negative) 03/25/19 18:13 Urine Urobilinogen < 2.0 mg/dL (<2.0) 03/25/19 18:13 Ur Leukocyte Esterase Neg (Negative) 03/25/19 18:13 Urine WBC (Auto) 8.0 /HPF (0.0-6.0) H 03/25/19 18:13 Urine RBC (Auto) 7.0 /HPF (0.0-6.0) 03/25/19 18:13 Amorphous Crystals Few 03/25/19 18:13 Urine Mucus Few /HPF 03/25/19 18:13 Urine Opiates Screen Presumptive negative 03/25/19 Unknown Urine Methadone Screen Presumptive negative 03/25/19 Unknown Ur Barbiturates Screen Presumptive negative 03/25/19 Unknown Ur Phencyclidine Scrn Presumptive positive 03/25/19 Unknown Ur Amphetamines Screen Presumptive negative 03/25/19 Unknown U Benzodiazepines Scrn Presumptive positive 03/25/19 Unknown Urine Cocaine Screen Presumptive negative 03/25/19 Unknown U Marijuana (THC) Screen Presumptive negative 03/25/19 Unknown Drugs of Abuse Note Disclamer 03/25/19 Unknown Active Medications - Current Medications Current Medications: Generic Name Dose Route Start Last Admin Trade Name Freq PRN Reason Stop Dose Admin Acetaminophen 650 mg 03/25/19 21:35 Tylenol PO Q4H PRN Pain MILD(1-3)/Fever >100.5/ALCARAZ Albuterol 2.5 mg 04/03/19 08:43 Proventil IH TIDRT PRN Shortness Of Breath Clonazepam 1 mg 03/27/19 22:00 04/02/19 22:15 Klonopin PO 1 mg BID SILVANA Administration Enoxaparin Sodium 40 mg 03/26/19 22:00 04/02/19 22:17 Lovenox SUB-Q 40 mg QDAY@2200 SILVANA Administration Famotidine 20 mg 03/29/19 10:00 04/02/19 22:15 Pepcid PO 20 mg BID SILVANA Administration Hydromorphone HCl 0.5 mg 03/25/19 21:35 03/30/19 04:20 Dilaudid IV 0.5 mg Q3H PRN Administration Pain , Severe (7-10) Lacosamide 200 mg 03/27/19 22:00 04/02/19 22:17 Vimpat PO 200 mg Q12HR SILVANA Administration Lamotrigine 300 mg 03/27/19 22:00 04/02/19 22:16 Lamictal PO 300 mg BID SILVANA Administration Levetiracetam 1,500 mg 03/31/19 10:00 04/02/19 22:15 Keppra PO 1,500 mg BID SILVANA Administration Lorazepam 1 mg 03/27/19 22:00 04/02/19 22:15 Ativan PO 1 mg QID SILVANA Administration Lorazepam 2 mg 03/29/19 13:22 04/01/19 04:49 Ativan IV 2 mg Q4H PRN Administration Agitation Metoclopramide HCl 10 mg 03/25/19 21:35 Reglan IV Q6H PRN Nausea And Vomiting Metoprolol Tartrate 12.5 mg 03/27/19 14:00 04/02/19 22:17 Lopressor PO 12.5 mg BID SILVANA Administration Ondansetron HCl 4 mg 03/25/19 21:35 Zofran IV Q3H PRN Nausea And Vomiting Sodium Chloride 10 ml 03/25/19 22:00 04/02/19 22:17 Sodium Chloride Flush Syringe 10 Ml IV 10 ml BID SILVANA Administration Sodium Chloride 10 ml 03/25/19 21:35 03/26/19 22:28 Sodium Chloride Flush Syringe 10 Ml IV 10 ml PRN PRN Administration LINE FLUSH Topiramate 50 mg 03/27/19 22:00 04/02/19 22:16 Topamax PO 50 mg Q12HR SILVANA Administration Trazodone HCl 50 mg 03/27/19 21:00 04/02/19 17:29 Desyrel PO 50 mg QPM SILVANA Administration Nutrition/Malnutrition Assess - Dietary Evaluation Nutrition/Malnutrition Findings: Nutrition Notes Start: 03/26/19 08:02 Freq: Status: Active Protocol: Document 04/02/19 11:04 RM (Rec: 04/02/19 11:14 RM [email or web address]) Nutrition Notes Initial or Follow up Reassessment Current Diagnosis Respiratory Failure Other Pertinent Diagnosis Seizures, cardiac arrest Current Diet [facility] soft Labs/Tests Reviewed Pertinent Medications Reviewed Height 5 ft 5 in Weight 109.5 kg [place] Body Weight (kg) 61.81 BMI 40.1 Subjective/Other Information TF DC'd and [facility] soft diet ordered. Pt confused and mumbling to himself at time of visit. Noted breakfast at bedside w/none eaten. Will order Ensure Enlive 1 daily to assess patient interest in ONS. Percent of energy/protein needs met: 0%/0% Burn Absent Trauma Absent Minimum of two criteria No physical signs of malnutrition #1 Nutrition Diagnosis Inadequate oral intake Diagnosis Progress(for reassessment Continues documentation) Is patient on ventilator? Yes Is Patient Ambulatory and/or Out of Bed No REE-([place]-confined to bed) 2397.528 Kcal/Kg value to use for calculation 16 Approximate Energy Requirements Using 1752 kcal/Kg Calculation Used for Recommendations Kcal/kg Additional Notes Protein needs: 124g/kg (>2.5g/ kg IBW 62kg) Fluid needs: 1ml/kcal Nutrition Intervention Change Diet Order: Continue current Add Supplement/Snack (indicate name/kcal Ensure Enlive 1 daily /protein ) Provides kCal: 350 Provides Protein (gm) 20 Goal #1 Meet at least 75% of energy and protein needs via TF Anticipated Discharge Needs: Unable to determine at this time Follow-Up By: 04/05/19 Additional Comments Follow for PO and ONS intakes
[2019-04-03] MEDS: LaMICtal PO SCH ×2 (09:58→21:46)
[2019-04-03] MEDS: PEPCID PO SCH ×2 (09:58→21:45)
[2019-04-03] MEDS: ATIVAN PO SCH ×4 (09:58→21:45)
[2019-04-03] MEDS: METOPROLOL PO SCH ×2 (09:59→21:51)
[2019-04-03] MEDS: VIMPAT PO SCH ×2 (09:59→21:47)
[2019-04-03] MEDS: KEPPRA PO SCH ×2 (10:00→21:57)
[2019-04-03] MEDS: TOPAMAX PO SCH ×2 (10:00→21:53)
[2019-04-03] MEDS: SODIUM CHLORIDE FLUSH SYRINGE 10 ML IV SCH ×2 (10:01→21:48)
--- NOTE | 2019-04-03 11:44 | Progress Note ---
Subjective Date of service: 04/03/19 Principal diagnosis: C-P arrest, Acute resp failure, status epilepticus, MERRF Interval history: he is seizure free and I did attempt to contact6 the mom she did not answer the phhone when I last spoke to her she was planning on transfer to personal detention Objective - Vital Sign Vital Signs - 12hr 04/03/19 04/03/19 04/03/19 04:37 07:56 08:39 Temperature 98.9 F 98.4 F Pulse Rate 83 84 Respiratory 20 18 Rate Blood Pressure 116/69 128/53 O2 Sat by Pulse 97 97 95 Oximetry 04/03/19 04/03/19 04/03/19 08:41 09:59 10:00 Temperature Pulse Rate 97 H 86 Respiratory Rate Blood Pressure 128/53 O2 Sat by Pulse 96 Oximetry 04/03/19 11:34 Temperature 98.4 F Pulse Rate 69 Respiratory 18 Rate Blood Pressure 134/61 O2 Sat by Pulse 94 Oximetry - Laboratory Findings CBC and BMP: 03/30/19 03:46 03/31/19 06:34 Abnormal Lab Findings: Abnormal Labs 03/25/19 03/25/19 03/25/19 17:56 17:56 17:56 WBC 16.4 H RDW 12.6 L Lymph % (Auto) 13.3 L [place] % (Auto) Lymph # [place] # Seg Neutrophils % 80.8 H Seg Neutrophils # 13.3 H POC ABG pH POC ABG pCO2 POC ABG pO2 ABG pO2 ABG HCO3 ABG O2 Saturation ABG Base Excess ABG Hemoglobin VBG pH Potassium 3.3 L Chloride 108.6 H Carbon Dioxide 19 L BUN Creatinine Glucose 182 H POC Glucose Lactic Acid 4.80 H* Calcium 8.3 L Magnesium AST 41 H ALT Troponin T 0.034 H Total Protein Albumin LDL Cholesterol Direct 137 H Urine WBC (Auto) 03/25/19 03/25/19 03/25/19 18:04 18:13 18:39 WBC RDW Lymph % (Auto) [place] % (Auto) Lymph # [place] # Seg Neutrophils % Seg Neutrophils # POC ABG pH 7.277 L POC ABG pCO2 POC ABG pO2 378 H ABG pO2 ABG HCO3 ABG O2 Saturation ABG Base Excess ABG Hemoglobin VBG pH 7.231 L Potassium Chloride Carbon Dioxide BUN Creatinine Glucose POC Glucose Lactic Acid Calcium Magnesium AST ALT Troponin T Total Protein Albumin LDL Cholesterol Direct Urine WBC (Auto) 8.0 H 03/25/19 03/25/19 03/25/19 19:36 20:29 22:54 WBC RDW Lymph % (Auto) [place] % (Auto) Lymph # [place] # Seg Neutrophils % Seg Neutrophils # POC ABG pH POC ABG pCO2 POC ABG pO2 ABG pO2 ABG HCO3 ABG O2 Saturation ABG Base Excess ABG Hemoglobin VBG pH Potassium Chloride Carbon Dioxide BUN Creatinine Glucose POC Glucose Lactic Acid 2.40 H* 2.30 H* Calcium Magnesium AST ALT Troponin T 0.077 H D Total Protein Albumin LDL Cholesterol Direct Urine WBC (Auto) 03/25/19 03/26/19 03/26/19 22:54 04:30 04:30 WBC 14.1 H RDW 12.5 L Lymph % (Auto) 7.0 L [place] % (Auto) Lymph # 1.0 L [place] # Seg Neutrophils % 89.4 H Seg Neutrophils # 12.6 H POC ABG pH POC ABG pCO2 POC ABG pO2 ABG pO2 ABG HCO3 ABG O2 Saturation ABG Base Excess ABG Hemoglobin VBG pH Potassium Chloride 111.1 H Carbon Dioxide 19 L BUN Creatinine 0.7 L Glucose 140 H POC Glucose Lactic Acid 2.10 H* Calcium Magnesium AST ALT Troponin T Total Protein Albumin LDL Cholesterol Direct Urine WBC (Auto) 03/26/19 03/26/19 03/26/19 05:00 12:29 16:24 WBC RDW Lymph % (Auto) [place] % (Auto) Lymph # [place] # Seg Neutrophils % Seg Neutrophils # POC ABG pH POC ABG pCO2 POC ABG pO2 ABG pO2 134.8 H ABG HCO3 16.8 L ABG O2 Saturation ABG Base Excess -6.8 L ABG Hemoglobin 13.8 L VBG pH Potassium Chloride Carbon Dioxide BUN Creatinine Glucose POC Glucose 142 H 119 H Lactic Acid Calcium Magnesium AST ALT Troponin T Total Protein Albumin LDL Cholesterol Direct Urine WBC (Auto) 03/27/19 03/27/19 03/27/19 05:00 05:00 05:47 WBC 19.1 H RDW 12.9 L Lymph % (Auto) 7.1 L [place] % (Auto) Lymph # [place] # 1.1 H Seg Neutrophils % 87.1 H Seg Neutrophils # 16.6 H POC ABG pH POC ABG pCO2 31.7 L POC ABG pO2 ABG pO2 ABG HCO3 ABG O2 Saturation ABG Base Excess ABG Hemoglobin VBG pH Potassium Chloride 110.0 H Carbon Dioxide 19 L BUN 6 L Creatinine 0.6 L Glucose 135 H POC Glucose Lactic Acid Calcium Magnesium 1.50 L AST ALT Troponin T Total Protein Albumin LDL Cholesterol Direct Urine WBC (Auto) 03/27/19 03/27/19 03/28/19 10:03 12:08 04:00 WBC 14.5 H RDW 12.7 L Lymph % (Auto) 10.2 L [place] % (Auto) Lymph # [place] # 1.0 H Seg Neutrophils % 82.4 H Seg Neutrophils # 12.0 H POC ABG pH POC ABG pCO2 POC ABG pO2 ABG pO2 ABG HCO3 ABG O2 Saturation ABG Base Excess ABG Hemoglobin VBG pH Potassium Chloride Carbon Dioxide BUN Creatinine Glucose POC Glucose 136 H Lactic Acid Calcium Magnesium AST ALT Troponin T 0.040 H D Total Protein Albumin LDL Cholesterol Direct Urine WBC (Auto) 03/28/19 03/28/19 03/29/19 04:00 12:49 05:40 WBC 11.8 H RDW 12.7 L Lymph % (Auto) 36.6 H [place] % (Auto) 12.2 H Lymph # [place] # 1.4 H Seg Neutrophils % Seg Neutrophils # POC ABG pH POC ABG pCO2 POC ABG pO2 ABG pO2 ABG HCO3 ABG O2 Saturation ABG Base Excess ABG Hemoglobin VBG pH Potassium Chloride Carbon Dioxide 19 L BUN Creatinine 0.6 L Glucose 119 H POC Glucose 115 H Lactic Acid Calcium Magnesium AST 51 H ALT 97 H Troponin T Total Protein Albumin LDL Cholesterol Direct Urine WBC (Auto) 03/29/19 03/30/19 03/30/19 05:40 03:46 03:46 WBC RDW 12.7 L Lymph % (Auto) 37.5 H [place] % (Auto) 12.5 H Lymph # [place] # 1.3 H Seg Neutrophils % Seg Neutrophils # POC ABG pH POC ABG pCO2 POC ABG pO2 ABG pO2 ABG HCO3 ABG O2 Saturation ABG Base Excess ABG Hemoglobin VBG pH Potassium 3.1 L D Chloride 107.3 H 108.8 H Carbon Dioxide BUN 8 L Creatinine 0.7 L 0.6 L Glucose 101 H POC Glucose Lactic Acid Calcium 8.0 L Magnesium AST 41 H ALT 79 H 79 H Troponin T Total Protein 6.0 L Albumin 3.4 L 3.4 L LDL Cholesterol Direct Urine WBC (Auto) 03/30/19 03/30/19 03/31/19 04:50 12:17 06:34 WBC RDW Lymph % (Auto) [place] % (Auto) Lymph # [place] # Seg Neutrophils % Seg Neutrophils # POC ABG pH POC ABG pCO2 POC ABG pO2 ABG pO2 337.5 H ABG HCO3 ABG O2 Saturation 99.5 H ABG Base Excess ABG Hemoglobin 13.6 L VBG pH Potassium Chloride Carbon Dioxide BUN Creatinine 0.6 L Glucose POC Glucose 112 H Lactic Acid Calcium Magnesium AST ALT Troponin T Total Protein Albumin LDL Cholesterol Direct Urine WBC (Auto)
[2019-04-03] MEDS: DESYREL PO SCH (17:04)
[2019-04-03] MEDS: ENOXAPARIN SUB-Q SCH (21:44)
--- NOTE | 2019-04-04 10:55 | Progress Note ---
Assessment and Plan Assessment and plan: 29-year-old man with history of Down syndrome, mental retardation and seizure disorder who was brought to the hospital for prolonged seizure. Mother stated that he was sitting for a long time and then called EMS. When EMS arrived he had another seizure went into cardiac arrest. Patient received CPR and epinephrine and had ROS seen. He was intubated for airway protection and put in the ICU Status epilepticus Optimize AED, vagus stimulator in place, neuro input appreciated Drug screen was positive for PCP, likely a false positive. SIRs, non infectious etiology, no organ damage sepsis/aspiration pneumonia ruled out cxr on 03/30 show improved atelectasis, antibiotics were discontinued on 03/28 Acute hypoxic respiratory failure on mechanical ventilator extubated on 03/30, was due to seizure, improving sp cardiac arrest, was due to seizure no further wo needed, cardiology input appreciated chronic debility PT, awaiting SNF placement dvt ppx, scds and lovenox Disposition, family wants custodial placement, awaiting placement History Interval history: Review of systems Constitutional: No fevers, no malaise, no joint pains CVS: No chest pain, no orthopnea, no dyspnea on exertion, no pedal edema GI: No abdominal pain, no diarrhea, no vomiting, no constipation Respiratory: no wheezing, no coughing Hospitalist Physical - Physical exam Narrative exam: General.: Appears well, no distress, nontoxic, Trisomy 21 facial appearance HEENT: Moist mucous membranes, extraocular muscles intact, no lymphadenopathy Neck: supple Cardiac: S1-S2 heard Lungs: clear to auscultation bilaterally Abdomen: soft , nontender, nondistended, bowel sounds positive Extremities: no edema clubbing or cyanosis Skin: no rash or lesions Neurologic: no gross focal deficits, Cognitive deficits due to MR Psych: calm, and cooperative - Constitutional Vitals: Temp Pulse Resp BP Pulse Ox 98.1 F 77 18 108/62 97 04/04/19 05:26 04/04/19 05:26 04/04/19 05:26 04/04/19 05:26 04/04/19 05:26 General appearance: Present: no acute distress, well-nourished Results - Labs CBC & Chem 7: 03/30/19 03:46 03/31/19 06:34 Labs: Laboratory Last Values WBC 10.6 K/mm3 (4.5-11.0) 03/30/19 03:46 RBC 4.16 M/mm3 (3.65-5.03) 03/30/19 03:46 Hgb 13.0 gm/dl (11.8-15.2) 03/30/19 03:46 Hct 38.1 % (35.5-45.6) 03/30/19 03:46 MCV 92 fl (84-94) 03/30/19 03:46 MCH 31 pg (28-32) 03/30/19 03:46 MCHC 34 % (32-34) 03/30/19 03:46 RDW 12.7 % (13.2-15.2) L 03/30/19 03:46 Plt Count 265 K/mm3 (140-440) 03/30/19 03:46 Lymph % (Auto) 37.5 % (13.4-35.0) H 03/30/19 03:46 [place] % (Auto) 12.5 % (0.0-7.3) H 03/30/19 03:46 Eos % (Auto) 1.9 % (0.0-4.3) 03/30/19 03:46 Baso % (Auto) 0.6 % (0.0-1.8) 03/30/19 03:46 Lymph # 4.0 K/mm3 (1.2-5.4) 03/30/19 03:46 [place] # 1.3 K/mm3 (0.0-0.8) H 03/30/19 03:46 Eos # 0.2 K/mm3 (0.0-0.4) 03/30/19 03:46 Baso # 0.1 K/mm3 (0.0-0.1) 03/30/19 03:46 Seg Neutrophils % 47.5 % (40.0-70.0) 03/30/19 03:46 Seg Neutrophils # 5.0 K/mm3 (1.8-7.7) 03/30/19 03:46 POC ABG pH 7.374 (7.35-7.45) 03/30/19 10: ABG pH 7.404 pH Units (7.350-7.450) 03/30/19 04:50 POC ABG pCO2 40.1 (35-45) 03/30/19 10:19 ABG pCO2 38.6 mm Hg 03/30/19 04:50 POC ABG pO2 97 (80-105) 03/30/19 10:19 ABG pO2 337.5 mm Hg (80.0-90.0) H 03/30/19 04:50 POC ABG HCO3 23.4 (22-26 mml/L) 03/30/19 10:19 ABG HCO3 23.6 mmol/L (20.0-26.0) 03/30/19 04:50 POC ABG Total CO2 25 (23-27mmol/L) 03/30/19 10:19 POC ABG O2 Sat 97 03/30/19 10:19 ABG O2 Saturation 99.5 % (95.0-99.0) H 03/30/19 04:50 ABG O2 Content 19.5 (0.0-44) 03/30/19 04:50 POC ABG Base Excess -2 ((-2) - (+3)mmol/L) 03/30/19 10: ABG Base Excess -0.9 mmol/L (-2.0-3.0) 03/30/19 04:50 ABG Hemoglobin 13.6 gm/dl (14.0-18.0) L 03/30/19 04:50 ABG Carboxyhemoglobin 1.2 % (0.0-5.0) 03/30/19 04:50 ABG Methemoglobin 0.5 % (0.0-1.5) 03/30/19 04:50 VBG pH 7.231 (7.320-7.420) L 03/25/19 18:04 Oxyhemoglobin 97.8 % (95.0-99.0) 03/30/19 04:50 FiO2 25 % 03/30/19 10:19 Sodium 140 mmol/L (137-145) 03/31/19 06:34 Potassium 4.3 mmol/L (3.6-5.0) 03/31/19 06:34 Chloride 102.9 mmol/L (98-107) 03/31/19 06:34 Carbon Dioxide 22 mmol/L (22-30) 03/31/19 06:34 Anion Gap 19 mmol/L 03/31/19 06:34 BUN 10 mg/dL (9-20) 03/31/19 06:34 Creatinine 0.6 mg/dL (0.8-1.5) L 03/31/19 06:34 Estimated GFR > 60 ml/min 03/31/19 06:34 BUN/Creatinine Ratio 17 % 03/31/19 06:34 Glucose 81 mg/dL (75-100) 03/31/19 06:34 POC Glucose 105 (70-105) 03/30/19 18:13 Hemoglobin A1c 4.7 % (4-6) 03/25/19 17:56 Lactic Acid 1.40 mmol/L (0.7-2.0) 03/26/19 00:15 Calcium 9.4 mg/dL (8.4-10.2) 03/31/19 06:34 Phosphorus 2.50 mg/dL (2.5-4.5) 03/30/19 03:46 Magnesium 2.10 mg/dL (1.7-2.3) 03/30/19 03:46 Total Bilirubin 0.30 mg/dL (0.1-1.2) 03/30/19 03:46 AST 41 units/L (5-40) H 03/30/19 03:46 ALT 79 units/L (7-56) H 03/30/19 03:46 Alkaline Phosphatase 70 units/L (35-129) 03/30/19 03:46 Troponin T 0.040 ng/mL (0.00-0.029) H D 03/27/19 10:03 Total Protein 6.4 g/dL (6.3-8.2) 03/30/19 03:46 Albumin 3.4 g/dL (3.9-5) L 03/30/19 03:46 Albumin/Globulin Ratio 1.1 % 03/30/19 03:46 Triglycerides 106 mg/dL (2-149) 03/25/19 17:56 Cholesterol 191 mg/dL (50-199) 03/25/19 17:56 LDL Cholesterol Direct 137 mg/dL (50-130) H 03/25/19 17:56 HDL Cholesterol 44 mg/dL (40-59) 03/25/19 17:56 Cholesterol/HDL Ratio 4.34 % 03/25/19 17:56 Urine Color Yellow (Yellow) 03/25/19 18:13 Urine Turbidity Slightly-cloudy (Clear) 03/25/19 18:13 Urine pH 5.0 (5.0-7.0) 03/25/19 18:13 Ur Specific [place] 1.023 (1.003-1.030) 03/25/19 18:13 Urine Protein 100 mg/dl mg/dL (Negative) 03/25/19 18:13 Urine Glucose (UA) 50 mg/dL (Negative) 03/25/19 18:13 Urine Ketones Neg mg/dL (Negative) 03/25/19 18:13 Urine Blood Neg (Negative) 03/25/19 18:13 Urine Nitrite Neg (Negative) 03/25/19 18:13 Urine Bilirubin Neg (Negative) 03/25/19 18:13 Urine Urobilinogen < 2.0 mg/dL (<2.0) 03/25/19 18:13 Ur Leukocyte Esterase Neg (Negative) 03/25/19 18:13 Urine WBC (Auto) 8.0 /HPF (0.0-6.0) H 03/25/19 18:13 Urine RBC (Auto) 7.0 /HPF (0.0-6.0) 03/25/19 18:13 Amorphous Crystals Few 03/25/19 18:13 Urine Mucus Few /HPF 03/25/19 18:13 Urine Opiates Screen Presumptive negative 03/25/19 Unknown Urine Methadone Screen Presumptive negative 03/25/19 Unknown Ur Barbiturates Screen Presumptive negative 03/25/19 Unknown Ur Phencyclidine Scrn Presumptive positive 03/25/19 Unknown Ur Amphetamines Screen Presumptive negative 03/25/19 Unknown U Benzodiazepines Scrn Presumptive positive 03/25/19 Unknown Urine Cocaine Screen Presumptive negative 03/25/19 Unknown U Marijuana (THC) Screen Presumptive negative 03/25/19 Unknown Drugs of Abuse Note Disclamer 03/25/19 Unknown Active Medications - Current Medications Current Medications: Generic Name Dose Route Start Last Admin Trade Name Freq PRN Reason Stop Dose Admin Acetaminophen 650 mg 03/25/19 21:35 Tylenol PO Q4H PRN Pain MILD(1-3)/Fever >100.5/ALCARAZ Albuterol 2.5 mg 04/03/19 08:43 Proventil IH TIDRT PRN Shortness Of Breath Clonazepam 1 mg 03/27/19 22:00 04/03/19 21:47 Klonopin PO 1 mg BID SILVANA Administration Enoxaparin Sodium 40 mg 03/26/19 22:00 04/03/19 21:44 Lovenox SUB-Q 40 mg QDAY@2200 SILVANA Administration Famotidine 20 mg 03/29/19 10:00 04/03/19 21:45 Pepcid PO 20 mg BID SILVANA Administration Hydromorphone HCl 0.5 mg 03/25/19 21:35 03/30/19 04:20 Dilaudid IV 0.5 mg Q3H PRN Administration Pain , Severe (7-10) Lacosamide 200 mg 03/27/19 22:00 04/03/19 21:47 Vimpat PO 200 mg Q12HR SILVANA Administration Lamotrigine 300 mg 03/27/19 22:00 04/03/19 21:46 Lamictal PO 300 mg BID SILVANA Administration Levetiracetam 1,500 mg 03/31/19 10:00 04/03/19 21:57 Keppra PO 1,500 mg BID SILVANA Administration Lorazepam 1 mg 03/27/19 22:00 04/03/19 21:45 Ativan PO 1 mg QID SILVANA Administration Lorazepam 2 mg 03/29/19 13:22 04/01/19 04:49 Ativan IV 2 mg Q4H PRN Administration Agitation Metoclopramide HCl 10 mg 03/25/19 21:35 Reglan IV Q6H PRN Nausea And Vomiting Metoprolol Tartrate 12.5 mg 03/27/19 14:00 04/03/19 21:51 Lopressor PO 12.5 mg BID SILVANA Administration Ondansetron HCl 4 mg 03/25/19 21:35 Zofran IV Q3H PRN Nausea And Vomiting Sodium Chloride 10 ml 03/25/19 22:00 04/03/19 21:48 Sodium Chloride Flush Syringe 10 Ml IV 10 ml BID SILVANA Administration Sodium Chloride 10 ml 03/25/19 21:35 03/26/19 22:28 Sodium Chloride Flush Syringe 10 Ml IV 10 ml PRN PRN Administration LINE FLUSH Topiramate 50 mg 03/27/19 22:00 04/03/19 21:53 Topamax PO 50 mg Q12HR SILVANA Administration Trazodone HCl 50 mg 03/27/19 21:00 04/03/19 17:04 Desyrel PO 50 mg QPM SILVANA Administration Nutrition/Malnutrition Assess - Dietary Evaluation Nutrition/Malnutrition Findings: Nutrition Notes Start: 03/26/19 08:02 Freq: Status: Active Protocol: Document 04/02/19 11:04 RM (Rec: 04/02/19 11:14 RM [id number]) Nutrition Notes Initial or Follow up Reassessment Current Diagnosis Respiratory Failure Other Pertinent Diagnosis Seizures, cardiac arrest Current Diet [facility] soft Labs/Tests Reviewed Pertinent Medications Reviewed Height 5 ft 5 in Weight 109.5 kg [place] Body Weight (kg) 61.81 BMI 40.1 Subjective/Other Information TF DC'd and [facility] soft diet ordered. Pt confused and mumbling to himself at time of visit. Noted breakfast at bedside w/none eaten. Will order Ensure Enlive 1 daily to assess patient interest in ONS. Percent of energy/protein needs met: 0%/0% Burn Absent Trauma Absent Minimum of two criteria No physical signs of malnutrition #1 Nutrition Diagnosis Inadequate oral intake Diagnosis Progress(for reassessment Continues documentation) Is patient on ventilator? Yes Is Patient Ambulatory and/or Out of Bed No REE-([facility]-confined to bed) 2397.528 Kcal/Kg value to use for calculation 16 Approximate Energy Requirements Using 1752 kcal/Kg Calculation Used for Recommendations Kcal/kg Additional Notes Protein needs: 124g/kg (>2.5g/ kg IBW 62kg) Fluid needs: 1ml/kcal Nutrition Intervention Change Diet Order: Continue current Add Supplement/Snack (indicate name/kcal Ensure Enlive 1 daily /protein ) Provides kCal: 350 Provides Protein (gm) 20 Goal #1 Meet at least 75% of energy and protein needs via TF Anticipated Discharge Needs: Unable to determine at this time Follow-Up By: 04/05/19 Additional Comments Follow for PO and ONS intakes
[2019-04-04] MEDS: KEPPRA PO SCH ×2 (13:00→21:54)
[2019-04-04] MEDS: VIMPAT PO SCH ×2 (13:00→21:57)
[2019-04-04] MEDS: PEPCID PO SCH ×2 (13:01→21:57)
[2019-04-04] MEDS: ATIVAN PO SCH ×4 (13:01→21:57)
[2019-04-04] MEDS: LaMICtal PO SCH ×2 (13:02→23:12)
[2019-04-04] MEDS: TOPAMAX PO SCH ×2 (13:02→21:56)
[2019-04-04] MEDS: METOPROLOL PO SCH ×2 (13:05→22:03)
[2019-04-04] MEDS: SODIUM CHLORIDE FLUSH SYRINGE 10 ML IV SCH ×2 (13:06→23:12)
[2019-04-04] MEDS: DESYREL PO SCH (17:58)
[2019-04-04] MEDS: ENOXAPARIN SUB-Q SCH (22:01)
--- NOTE | 2019-04-05 10:45 | Discharge Summary ---
Providers - Providers Date of Admission: 03/25/19 21:38 Attending physician: CHANELLE RICHMOND MD 03/25/19 21:35 Consult to Physician [CONS] Routine Comment: Consulting Provider: MIN RAMIRES Physician Instructions: Reason For Exam: Resp failure 03/26/19 10:55 Consult to Dietitian/Nutrition [CONS] Routine Physician Instructions: Assess nutrtn needs, initiate, modify, manage TF Reason For Exam: Reason for Consult: Write/Manage Tube Feeding Reason for Consult: Write/Manage Tube Feeding 03/26/19 19:38 Consult to Physician [CONS] Routine Comment: Consulting Provider: TANG MONDRAGON Physician Instructions: Reason For Exam: Seizures/Cardiac arrest 03/28/19 08:03 Midline [Consult to PICC Line RN] [CONS] Routine Reason For Exam: IV access Type Line:: Midline 04/01/19 07:41 Physical Therapy Evaluation and Treat [CONS] Routine Comment: Reason For Exam: gen weakness/sp intubation 04/01/19 07:42 Occupational Therapy Evaluate and Treat [CONS] Routine Comment: Reason For Exam: gen weakness/sp intubation Primary care physician: [employer]INE[employer] Hospitalization Condition: Critical Hospital course: 29-year-old man with history of Down syndrome, mental retardation and seizure disorder who was brought to the hospital for prolonged seizure. Mother stated that he was sitting for a long time and then called EMS. When EMS arrived he had another seizure went into cardiac arrest. Patient received CPR and epinephrine and had ROS seen. He was intubated for airway protection and put in the ICU Status epilepticus Optimized AED, vagus stimulator in place, neuro input appreciated. Patient is now seizure-free Drug screen was positive for PCP, likely a false positive. SIRs, non infectious etiology, no organ damage sepsis/aspiration pneumonia ruled out cxr on 03/30 show improved atelectasis, antibiotics were discontinued on 03/28 Acute hypoxic respiratory failure on mechanical ventilator greater than 96 hours extubated on 03/30, was due to seizure, resolved, patient on room air sp cardiac arrest, was due to seizure no further wo needed, cardiology input appreciated chronic debility Patient received PT his mother wanted to get him placed in a SNF, unfortunately we were unable to procure a placement for him given funding with Medicaid. The mother had no other sources of funding to place him in half-way facility, therefore she is recommended to take at home with home health dvt ppx, scds and lovenox Disposition: [id number] HOME UNDER HOME HLTH Time spent for discharge: 35 minutes Core Measure Documentation - Palliative Care Palliative Care/ Comfort Measures: Not Applicable - Core Measures Any of the following diagnoses?: none Exam - Physical Exam Narrative exam: General.: Appears well, no distress, nontoxic, Trisomy 21 facial appearance HEENT: Moist mucous membranes, extraocular muscles intact, no lymphadenopathy Neck: supple Cardiac: S1-S2 heard Lungs: clear to auscultation bilaterally Abdomen: soft , nontender, nondistended, bowel sounds positive Extremities: no edema clubbing or cyanosis Skin: no rash or lesions Neurologic: no gross focal deficits, Cognitive deficits due to MR Psych: calm, and cooperative - Constitutional Vitals: Temp Pulse Resp BP Pulse Ox 99.1 F 101 H 20 146/65 94 04/05/19 05:48 04/05/19 05:48 04/05/19 05:48 04/05/19 05:48 04/05/19 05:48 Plan Follow up with: PRIMARY CAREMD [Primary Care Provider] - 7 Days Prescriptions: levETIRAcetam [Keppra] 1,500 mg PO BID #60 dose clonazePAM [KlonoPIN] 1 mg PO BID #60 tablet Metoprolol [Lopressor TAB] 12.5 mg PO BID #60 tablet
[2019-04-05] MEDS: VIMPAT PO SCH ×2 (10:58→22:29)
[2019-04-05] MEDS: METOPROLOL PO SCH ×2 (10:59→22:49)
[2019-04-05] MEDS: PEPCID PO SCH ×2 (10:59→22:28)
[2019-04-05] MEDS: ATIVAN PO SCH ×4 (10:59→22:29)
[2019-04-05] MEDS: KEPPRA PO SCH ×2 (11:00→22:28)
[2019-04-05] MEDS: TOPAMAX PO SCH ×2 (11:00→22:29)
[2019-04-05] MEDS: SODIUM CHLORIDE FLUSH SYRINGE 10 ML IV SCH ×2 (11:00→22:30)
[2019-04-05] MEDS: LaMICtal PO SCH ×2 (11:11→23:03)
--- NOTE | 2019-04-05 15:20 | Progress Note ---
Assessment and Plan Assessment and plan: 29-year-old man with history of Down syndrome, mental retardation and seizure disorder who was brought to the hospital for prolonged seizure. Mother stated that he was sitting for a long time and then called EMS. When EMS arrived he had another seizure went into cardiac arrest. Patient received CPR and epinephrine and had ROS seen. He was intubated for airway protection and put in the ICU Status epilepticus Optimize AED, vagus stimulator in place, neuro input appreciated Drug screen was positive for PCP, likely a false positive. SIRs, non infectious etiology, no organ damage sepsis/aspiration pneumonia ruled out cxr on 03/30 show improved atelectasis, antibiotics were discontinued on 03/28 Acute hypoxic respiratory failure on mechanical ventilator extubated on 03/30, was due to seizure, resolved, now on room air sp cardiac arrest, was due to seizure no further wo needed, cardiology input appreciated chronic debility PT, awaiting SNF placement dvt ppx, scds and lovenox Disposition, family wants senior care placement, awaiting placement, bed will be available tomorrow History Interval history: Review of systems Constitutional: No fevers, no malaise, no joint pains CVS: No chest pain, no orthopnea, no dyspnea on exertion, no pedal edema GI: No abdominal pain, no diarrhea, no vomiting, no constipation Respiratory: no wheezing, no coughing Hospitalist Physical - Physical exam Narrative exam: General.: Appears well, no distress, nontoxic, Trisomy 21 facial appearance HEENT: Moist mucous membranes, extraocular muscles intact, no lymphadenopathy Neck: supple Cardiac: S1-S2 heard Lungs: clear to auscultation bilaterally Abdomen: soft , nontender, nondistended, bowel sounds positive Extremities: no edema clubbing or cyanosis Skin: no rash or lesions Neurologic: no gross focal deficits, Cognitive deficits due to MR Psych: calm, and cooperative - Constitutional Vitals: Temp Pulse Resp BP Pulse Ox 97.9 F 69 20 107/59 94 04/05/19 11:53 04/05/19 11:53 04/05/19 11:53 04/05/19 11:53 04/05/19 11:53 General appearance: Present: no acute distress, well-nourished Results - Labs CBC & Chem 7: 03/30/19 03:46 03/31/19 06:34 Labs: Laboratory Last Values WBC 10.6 K/mm3 (4.5-11.0) 03/30/19 03:46 RBC 4.16 M/mm3 (3.65-5.03) 03/30/19 03:46 Hgb 13.0 gm/dl (11.8-15.2) 03/30/19 03:46 Hct 38.1 % (35.5-45.6) 03/30/19 03:46 MCV 92 fl (84-94) 03/30/19 03:46 MCH 31 pg (28-32) 03/30/19 03:46 MCHC 34 % (32-34) 03/30/19 03:46 RDW 12.7 % (13.2-15.2) L 03/30/19 03:46 Plt Count 265 K/mm3 (140-440) 03/30/19 03:46 Lymph % (Auto) 37.5 % (13.4-35.0) H 03/30/19 03:46 [place] % (Auto) 12.5 % (0.0-7.3) H 03/30/19 03:46 Eos % (Auto) 1.9 % (0.0-4.3) 03/30/19 03:46 Baso % (Auto) 0.6 % (0.0-1.8) 03/30/19 03:46 Lymph # 4.0 K/mm3 (1.2-5.4) 03/30/19 03:46 [place] # 1.3 K/mm3 (0.0-0.8) H 03/30/19 03:46 Eos # 0.2 K/mm3 (0.0-0.4) 03/30/19 03:46 Baso # 0.1 K/mm3 (0.0-0.1) 03/30/19 03:46 Seg Neutrophils % 47.5 % (40.0-70.0) 03/30/19 03:46 Seg Neutrophils # 5.0 K/mm3 (1.8-7.7) 03/30/19 03:46 POC ABG pH 7.374 (7.35-7.45) 03/30/19 10: ABG pH 7.404 pH Units (7.350-7.450) 03/30/19 04:50 POC ABG pCO2 40.1 (35-45) 03/30/19 10:19 ABG pCO2 38.6 mm Hg 03/30/19 04:50 POC ABG pO2 97 (80-105) 03/30/19 10:19 ABG pO2 337.5 mm Hg (80.0-90.0) H 03/30/19 04:50 POC ABG HCO3 23.4 (22-26 mml/L) 03/30/19 10: ABG HCO3 23.6 mmol/L (20.0-26.0) 03/30/19 04:50 POC ABG Total CO2 25 (23-27mmol/L) 03/30/19 10:19 POC ABG O2 Sat 97 03/30/19 10:19 ABG O2 Saturation 99.5 % (95.0-99.0) H 03/30/19 04:50 ABG O2 Content 19.5 (0.0-44) 03/30/19 04:50 POC ABG Base Excess -2 ((-2) - (+3)mmol/L) 03/30/19 10:19 ABG Base Excess -0.9 mmol/L (-2.0-3.0) 03/30/19 04:50 ABG Hemoglobin 13.6 gm/dl (14.0-18.0) L 03/30/19 04:50 ABG Carboxyhemoglobin 1.2 % (0.0-5.0) 03/30/19 04:50 ABG Methemoglobin 0.5 % (0.0-1.5) 03/30/19 04:50 VBG pH 7.231 (7.320-7.420) L 03/25/19 18:04 Oxyhemoglobin 97.8 % (95.0-99.0) 03/30/19 04:50 FiO2 25 % 03/30/19 10:19 Sodium 140 mmol/L (137-145) 03/31/19 06:34 Potassium 4.3 mmol/L (3.6-5.0) 03/31/19 06:34 Chloride 102.9 mmol/L (98-107) 03/31/19 06:34 Carbon Dioxide 22 mmol/L (22-30) 03/31/19 06:34 Anion Gap 19 mmol/L 03/31/19 06:34 BUN 10 mg/dL (9-20) 03/31/19 06:34 Creatinine 0.6 mg/dL (0.8-1.5) L 03/31/19 06:34 Estimated GFR > 60 ml/min 03/31/19 06:34 BUN/Creatinine Ratio 17 % 03/31/19 06:34 Glucose 81 mg/dL (75-100) 03/31/19 06:34 POC Glucose 105 (70-105) 03/30/19 18:13 Hemoglobin A1c 4.7 % (4-6) 03/25/19 17:56 Lactic Acid 1.40 mmol/L (0.7-2.0) 03/26/19 00:15 Calcium 9.4 mg/dL (8.4-10.2) 03/31/19 06:34 Phosphorus 2.50 mg/dL (2.5-4.5) 03/30/19 03:46 Magnesium 2.10 mg/dL (1.7-2.3) 03/30/19 03:46 Total Bilirubin 0.30 mg/dL (0.1-1.2) 03/30/19 03:46 AST 41 units/L (5-40) H 03/30/19 03:46 ALT 79 units/L (7-56) H 03/30/19 03:46 Alkaline Phosphatase 70 units/L (35-129) 03/30/19 03:46 Troponin T 0.040 ng/mL (0.00-0.029) H D 03/27/19 10:03 Total Protein 6.4 g/dL (6.3-8.2) 03/30/19 03:46 Albumin 3.4 g/dL (3.9-5) L 03/30/19 03:46 Albumin/Globulin Ratio 1.1 % 03/30/19 03:46 Triglycerides 106 mg/dL (2-149) 03/25/19 17:56 Cholesterol 191 mg/dL (50-199) 03/25/19 17:56 LDL Cholesterol Direct 137 mg/dL (50-130) H 03/25/19 17:56 HDL Cholesterol 44 mg/dL (40-59) 03/25/19 17:56 Cholesterol/HDL Ratio 4.34 % 03/25/19 17:56 Urine Color Yellow (Yellow) 03/25/19 18:13 Urine Turbidity Slightly-cloudy (Clear) 03/25/19 18:13 Urine pH 5.0 (5.0-7.0) 03/25/19 18:13 Ur Specific [place] 1.023 (1.003-1.030) 03/25/19 18:13 Urine Protein 100 mg/dl mg/dL (Negative) 03/25/19 18:13 Urine Glucose (UA) 50 mg/dL (Negative) 03/25/19 18:13 Urine Ketones Neg mg/dL (Negative) 03/25/19 18:13 Urine Blood Neg (Negative) 03/25/19 18:13 Urine Nitrite Neg (Negative) 03/25/19 18:13 Urine Bilirubin Neg (Negative) 03/25/19 18:13 Urine Urobilinogen < 2.0 mg/dL (<2.0) 03/25/19 18:13 Ur Leukocyte Esterase Neg (Negative) 03/25/19 18:13 Urine WBC (Auto) 8.0 /HPF (0.0-6.0) H 03/25/19 18:13 Urine RBC (Auto) 7.0 /HPF (0.0-6.0) 03/25/19 18:13 Amorphous Crystals Few 03/25/19 18:13 Urine Mucus Few /HPF 03/25/19 18:13 Urine Opiates Screen Presumptive negative 03/25/19 Unknown Urine Methadone Screen Presumptive negative 03/25/19 Unknown Ur Barbiturates Screen Presumptive negative 03/25/19 Unknown Ur Phencyclidine Scrn Presumptive positive 03/25/19 Unknown Ur Amphetamines Screen Presumptive negative 03/25/19 Unknown U Benzodiazepines Scrn Presumptive positive 03/25/19 Unknown Urine Cocaine Screen Presumptive negative 03/25/19 Unknown U Marijuana (THC) Screen Presumptive negative 03/25/19 Unknown Drugs of Abuse Note Disclamer 03/25/19 Unknown Active Medications - Current Medications Current Medications: Generic Name Dose Route Start Last Admin Trade Name Freq PRN Reason Stop Dose Admin Acetaminophen 650 mg 03/25/19 21:35 Tylenol PO Q4H PRN Pain MILD(1-3)/Fever >100.5/ALCARAZ Albuterol 2.5 mg 04/03/19 08:43 Proventil IH TIDRT PRN Shortness Of Breath Clonazepam 1 mg 03/27/19 22:00 04/05/19 10:59 Klonopin PO 1 mg BID SILVANA Administration Enoxaparin Sodium 40 mg 03/26/19 22:00 04/04/19 22:01 Lovenox SUB-Q 40 mg QDAY@2200 SILVANA Administration Famotidine 20 mg 03/29/19 10:00 04/05/19 10:59 Pepcid PO 20 mg BID SILVANA Administration Hydromorphone HCl 0.5 mg 03/25/19 21:35 03/30/19 04:20 Dilaudid IV 0.5 mg Q3H PRN Administration Pain , Severe (7-10) Lacosamide 200 mg 03/27/19 22:00 04/05/19 10:58 Vimpat PO 200 mg Q12HR SILVANA Administration Lamotrigine 300 mg 03/27/19 22:00 04/05/19 11:11 Lamictal PO 300 mg BID SILVANA Administration Levetiracetam 1,500 mg 03/31/19 10:00 04/05/19 11:00 Keppra PO 1,500 mg BID SILVANA Administration Lorazepam 1 mg 03/27/19 22:00 04/05/19 10:59 Ativan PO 1 mg QID SILVANA Administration Lorazepam 2 mg 03/29/19 13:22 04/01/19 04:49 Ativan IV 2 mg Q4H PRN Administration Agitation Metoclopramide HCl 10 mg 03/25/19 21:35 Reglan IV Q6H PRN Nausea And Vomiting Metoprolol Tartrate 12.5 mg 03/27/19 14:00 04/05/19 10:59 Lopressor PO 12.5 mg BID SILVANA Administration Ondansetron HCl 4 mg 03/25/19 21:35 Zofran IV Q3H PRN Nausea And Vomiting Sodium Chloride 10 ml 03/25/19 22:00 04/05/19 11:00 Sodium Chloride Flush Syringe 10 Ml IV 10 ml BID SILVANA Administration Sodium Chloride 10 ml 03/25/19 21:35 03/26/19 22:28 Sodium Chloride Flush Syringe 10 Ml IV 10 ml PRN PRN Administration LINE FLUSH Topiramate 50 mg 03/27/19 22:00 04/05/19 11:00 Topamax PO 50 mg Q12HR SILVANA Administration Trazodone HCl 50 mg 03/27/19 21:00 04/04/19 17:58 Desyrel PO 50 mg QPM SILVANA Administration Nutrition/Malnutrition Assess - Dietary Evaluation Nutrition/Malnutrition Findings: Nutrition Notes Start: 03/26/19 08 :02 Freq: Status: Active Protocol: Document 04/05/19 13:57 OH (Rec: 04/05/19 14:06 OH [id number]) Nutrition Notes Initial or Follow up Reassessment Current Diagnosis Respiratory Failure Other Pertinent Diagnosis Seizures, cardiac arrest Current Diet [facility] soft Labs/Tests Reviewed Pertinent Medications Reviewed Height 5 ft 5 in Weight 105.1 kg [place] Body Weight (kg) 61.81 BMI 38.5 Weight change and time frame Wt noted to be downward trending x 3 days. ~4.4 (9.6 # ) kg change noted. Per RN pt has had poor appetite. Pt. requiring assistance in feeding to meet nutritional needs. Subjective/Other Information F/U. RN in room to provided am meds. Per RN pt didn't eat much at breakfast. RN states she will try and feed pt at lunch to see if improvement in po intake noted. He is drinking supplement. Per RN no n/v noted. Percent of energy/protein needs met: 50/50% Burn Absent Trauma Absent Current % PO Poor (25-49%) Minimum of two criteria No physical signs of malnutrition #1 Nutrition Diagnosis Inadequate oral intake As Evidenced by Signs and Symptoms poor po intake Diagnosis Progress(for reassessment Continues documentation) Is patient on ventilator? No Is Patient Ambulatory and/or Out of Bed Yes REE-([facility]-ambulatory/OOB) [ 2538.744 NUTR.[id number]] Kcal/Kg value to use for calculation 16 Approximate Energy Requirements Using 1682 kcal/Kg Calculation Used for Recommendations Kcal/kg Additional Notes PRO: IBW 61.81 KGS .8-1.0 G/KG 50-62 G/DAY FLUID: 1 mL/KCAL Nutrition Intervention Change Diet Order: Mechanical soft Nutrition Support: d/c TF Add Supplement/Snack (indicate name/kcal Ensure Enlive 1 daily /protein ) Provides kCal: 350 Provides Protein (gm) 20 Goal #1 Meet at least 75% energy needs through po intake Goal #2 Tolerate ONS Anticipated Discharge Needs: Unable to determine at this time Follow-Up By: 04/07/19 Additional Comments Follow for PO and ONS intakes
[2019-04-05] MEDS: DESYREL PO SCH (18:00)
[2019-04-05] MEDS: ENOXAPARIN SUB-Q SCH (22:30)
[2019-04-06] MEDS: METOPROLOL PO SCH (10:24)
[2019-04-06] MEDS: KEPPRA PO SCH (10:24)
[2019-04-06] MEDS: PEPCID PO SCH (10:24)
[2019-04-06] MEDS: ATIVAN PO SCH ×3 (10:24→17:35)
[2019-04-06] MEDS: LaMICtal PO SCH (10:25)
[2019-04-06] MEDS: VIMPAT PO SCH (10:26)
[2019-04-06] MEDS: TOPAMAX PO SCH (10:26)
[2019-04-06] MEDS: SODIUM CHLORIDE FLUSH SYRINGE 10 ML IV SCH (10:28)
--- NOTE | 2019-04-06 12:47 | Discharge Summary ---
Providers - Providers Date of Admission: 03/25/19 21:38 Date of discharge: 04/06/19 Attending physician: NUSRAT REYNOLDS 03/25/19 21:35 Consult to Physician [CONS] Routine Comment: Consulting Provider: MIN RAMIRES Physician Instructions: Reason For Exam: Resp failure 03/26/19 10:55 Consult to Dietitian/Nutrition [CONS] Routine Physician Instructions: Assess nutrtn needs, initiate, modify, manage TF Reason For Exam: Reason for Consult: Write/Manage Tube Feeding Reason for Consult: Write/Manage Tube Feeding 03/26/19 19:38 Consult to Physician [CONS] Routine Comment: Consulting Provider: TANG MONDRAGON Physician Instructions: Reason For Exam: Seizures/Cardiac arrest 03/28/19 08:03 Midline [Consult to PICC Line RN] [CONS] Routine Reason For Exam: IV access Type Line:: Midline 04/01/19 07:41 Physical Therapy Evaluation and Treat [CONS] Routine Comment: Reason For Exam: gen weakness/sp intubation 04/01/19 07:42 Occupational Therapy Evaluate and Treat [CONS] Routine Comment: Reason For Exam: gen weakness/sp intubation Primary care physician: [employer] [facility] Hospitalization Reason for admission: status epilepticus/cardiac arrest Condition: Fair Pertinent studies: CT head Chest x-ray EEG Echocardiogram Procedures: Intubated on mechanical ventilation Extubated Hospital course: 29-year-old male patient with significant past medical history of seizure disorder presented to the emergency room with postictal confusion and seizure,The patient had cardiac arrest status post CPR per ACLS protocol Patient had spontaneous return of circulation intubated and was admitted to ICU. The patient was intubated evaluated and managed by pulmonary subsequently extubated Transfer to medical floor, no new episodes of seizure, status post aspiration pneumonia with appropriate antibiotics Follow-up chest x-ray showed resolution, The patient is comfortable in no new complaints vital signs stable Family requested SNF placement, case management and social media sr strategy manager assisted with discharge planning Cleared for discharge and transfer to SNF, stable at discharge Discharge diagnosis; --Status epilepticus; seizure precautions, antiepileptic medications optimised neurology evaluated,f/u per schedule --Cardiac arrest; due to seizure status post CPR,stable,cardiology evaluated f/u per schedule --Possible hypoxic encephalopathy --Acute respiratory failure requiring intubation; s/p extubation,Pulm crit evaluated Stable --Sepsis, possible aspiration pneumonia; Received for treatment with of antibiotics Stable --Vagus nerve stimulator: in place --Substance abuse: Drug screen positive for Phencyclidine. --Chronic debility; physical therapy occupational therapy Supportive care --DVT prophylaxis;Lovenox --Full Code Patient is stable at discharge Disposition: [place]-03 SNF [facility] Time spent for discharge: 35 min Core Measure Documentation - Palliative Care Palliative Care/ Comfort Measures: Not Applicable - Core Measures Any of the following diagnoses?: none Exam - Constitutional Vitals: Temp Pulse Resp BP Pulse Ox 97.7 F 63 16 103/62 100 04/06/19 04:52 04/06/19 04:52 04/06/19 04:52 04/06/19 04:52 04/06/19 04:52 General appearance: Present: no acute distress, obese - EENT Eyes: Present: PERRL, EOM intact - Neck Neck: Present: supple, normal ROM - Respiratory Respiratory effort: normal Respiratory: negative: rales, rhonchi, wheezing - Cardiovascular Rhythm: regular Heart Sounds: Present: S1 & S2 - Extremities Extremities: no ischemia, Full ROM - Abdominal General gastrointestinal: Present: soft, non-tender, non-distended, normal bowel sounds - Integumentary Integumentary: Present: clear, warm - Musculoskeletal Musculoskeletal: generalized weakness - Psychiatric Psychiatric: cooperative - Neurologic Neurologic: other Plan Activity: advance as tolerated Diet: other (mechanical soft diet as tolerated) Special Instructions: physical therapy Follow up with: PRIMARY CAREMD [Primary Care Provider] - 7 Days TANG MONDRAGON MD [Staff Physician] - 7 Days DOUGLAS GREEN MD [Staff Physician] - 7 Days Prescriptions: levETIRAcetam [Keppra] 1,500 mg PO BID #60 dose clonazePAM [KlonoPIN] 1 mg PO BID #60 tablet Metoprolol [Lopressor TAB] 12.5 mg PO BID #60 tablet
[2019-04-06] MEDS: DESYREL PO SCH (17:35)
[2019-04-06 18:19] VITALS: BP 105/65
== END 2019-04-06 20:35 | DRG 870 ==
LOC: ED 16:52 → CC1 21:38 → 4A 03-31 14:36 → 3A 04-03 16:12
PROVIDERS: ADMIT Internal Medicine; ATTEND Internal Medicine
PROC: 0BH17EZ Insertion of Endotracheal Airway into Trachea, Via Natural or Artificial Opening (ICD-10-PCS; principal; 2019-03-25)
PROC: 5A1955Z Respiratory Ventilation, Greater than 96 Consecutive Hours (ICD-10-PCS; 2019-03-25)
PROC: 5A12012 Performance of Cardiac Output, Single, Manual (ICD-10-PCS; 2019-03-25)
PROC: 4A033R1 Measurement of Arterial Saturation, Peripheral, Percutaneous Approach (ICD-10-PCS; 2019-03-25)
PROC: 06HY33Z Insertion of Infusion Device into Lower Vein, Percutaneous Approach (ICD-10-PCS; 2019-03-25)
PROC: B54BZZA Ultrasonography of Right Lower Extremity Veins, Guidance (ICD-10-PCS; 2019-03-25)
DX: A41.9 Sepsis, unspecified organism (principal); I46.9 Cardiac arrest, cause unspecified; J96.01 Acute respiratory failure with hypoxia; E88.42 MERRF syndrome; E87.6 Hypokalemia; F03.90 Unspecified dementia, unspecified severity, without behavioral disturbance, psychotic disturbance, mood disturbance, and anxiety; F19.10 Other psychoactive substance abuse, uncomplicated; G93.1 Anoxic brain damage, not elsewhere classified; G40.901 Epilepsy, unspecified, not intractable, with status epilepticus; Z82.49 Family history of ischemic heart disease and other diseases of the circulatory system; Z88.0 Allergy status to penicillin; Z91.013 Allergy to seafood; Z79.01 Long term (current) use of anticoagulants; Z79.899 Other long term (current) drug therapy; Z86.73 Personal history of transient ischemic attack (TIA), and cerebral infarction without residual deficits
CPT/HCPCS: 36415; 36600; 70450; 71045; 80048; 80053; 80061; 80307; 81001; 82140; 82803; 82805; 82962; 83036; 83735; 84100; 84484; 85025; 87040; 87070; 87086; 87205; 93005; 93010; 93306; 94002; 94003; 94640; 94760; 95819; 96374; 99292; G0378; J0171; J0692; J1170; J1650; J1953; J1956; J2060; J2250; J2920; J3010; J3370; J3475; J7030; J7040